=== PATIENT | male | born 1965 | race Caucasian/White ===

== ENCOUNTER → 2020-03-29 13:41 | Outpatient (BNVA) | payer MEDICAID, SELFPAY | PROVIDERS: PCP Registered Nurse; Visit Provider Internal Medicine Pulmonary Disease | DX: J44.9 Chronic obstructive pulmonary disease, unspecified (principal); R91.8 Other nonspecific abnormal finding of lung field; F17.200 Nicotine dependence, unspecified, uncomplicated; Z79.899 Other long term (current) drug therapy; Z99.81 Dependence on supplemental oxygen | CPT/HCPCS: 99214 ==

== ENCOUNTER → 2020-04-14 10:06 | Outpatient (BNVA) | payer MEDICAID, SELFPAY | PROVIDERS: Visit Provider Internal Medicine Pulmonary Disease | DX: Z76.89 Persons encountering health services in other specified circumstances (principal) ==

== ENCOUNTER 2020-04-20 12:54 | Outpatient (REF) | payer MEDICAID, SELFPAY ==
--- NOTE | 2020-04-20 12:57 | CT_ITS ---
EXAMINATION: CT CHEST WITHOUT CONTRAST CLINICAL INFORMATION: Follow-up pulmonary nodules COMPARISON: Previous chest CT April 2019 TECHNIQUE: Multidetector volumetric CT imaging of the chest was done. Axial MIP volume rendering provided. Sagittal and coronal reformatted images were obtained. This CT examination was performed using dose optimization techniques as appropriate, variously including the following: *Automated exposure control *Adjustment of mA and/or kV according to patient size (this includes techniques or standardized protocols for targeted exams where dose is matched to indication/reason for exam; i.e. 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 Largest pulmonary nodule is a 3 mm calcified left upper lobe nodule axial image 123 series 7. No new pulmonary nodules are seen. There is scarring or subsegmental atelectasis in the lingula. MEDIASTINUM: The mediastinum is normal. PLEURA: There is no pleural effusion. No pleural mass or thickening. AXILLA: No lymphadenopathy. UPPER ABDOMEN: There are small upper abdominal retroperitoneal lymph nodes. There are gallstones in the gallbladder. The spleen is not completely imaged but may be prominent. OSSEOUS STRUCTURES: Unremarkable. CT/CT chest wo con IMPRESSION: Stable small calcified and noncalcified pulmonary nodules.
== END 2020-04-20 12:55 | disposition home or self-care (01) ==
LOC: HO.CT 12:54
PROVIDERS: Visit Provider Internal Medicine Pulmonary Disease
DX: R91.8 Other nonspecific abnormal finding of lung field (principal)
CPT/HCPCS: 71250

== ENCOUNTER → 2020-07-06 14:09 | Outpatient (BNVA) | payer MEDICAID, SELFPAY | PROVIDERS: Visit Provider Internal Medicine Pulmonary Disease | DX: Z76.89 Persons encountering health services in other specified circumstances (principal) ==

== ENCOUNTER → 2020-09-30 14:21 | Outpatient (BNVA) | payer MEDICAID, SELFPAY | PROVIDERS: PCP Family Medicine; Visit Provider Internal Medicine Pulmonary Disease | DX: J44.9 Chronic obstructive pulmonary disease, unspecified (principal); R91.8 Other nonspecific abnormal finding of lung field; Z99.81 Dependence on supplemental oxygen | CPT/HCPCS: 99212 ==

== ENCOUNTER 2020-11-25 09:10 | Outpatient (REF) | payer MEDICAID, SELFPAY ==
--- NOTE | ~2020-11-25 | US_ITS ---
EXAMINATION: US COMPLETE ABDOMEN WITH LIVER ELASTOGRAPHY CLINICAL INFORMATION: Chronic hepatitis C. COMPARISON: 02/05/2019 abdominal ultrasound. TECHNIQUE: Real-time imaging of the abdominal viscera. Noninvasive ultrasound liver fibrosis assessment is performed using Zahra ElastPQ point quantification shear wave elastography (pSWE) with a C5-2 MHz transducer. Multiple elastography samples are obtained. FINDINGS: LIVER: Homogeneous echotexture without focal abnormality. A gastrohepatic lymph node measures 1.0 cm in short axis. The right lobe measures 14.2 cm in length. The left lobe measures 12.0 cm in length. Portal flow is hepatopedal Shear wave liver elastography median stiffness is 1.19 m/s (reference: normal median stiffness is 1.3 m/s or less). IQR/median stiffness to assess sampling precision is 0.18 (reference: good quality data set is IQR/median stiffness of 0.15 or less). PANCREAS: Visualized portions unremarkable. ABDOMINAL AORTA: Visualized portions unremarkable. INFERIOR VENA CAVA: Visualized portions unremarkable. GALLBLADDER: Small gallstone measuring 0.6 cm and mild echogenic bile without mural thickening or pericholecystic fluid. COMMON BILE DUCT: 0.5 cm. Unremarkable. RIGHT KIDNEY: 11.2 cm. Unremarkable. LEFT KIDNEY: 10.5 cm. Mild pelvicaliectasis. SPLEEN: 18.0 cm (previously 16.7 cm). No focal abnormality. FREE FLUID: None. US/US abdomen comp w elastography IMPRESSION: 1. Liver elastography: In the range of high probability normal. 2. Cholelithiasis without evidence for acute cholecystitis. 3. Splenomegaly with mild interval increase. 4. Mild left renal pelvicaliectasis without identified obstructing abnormality. REFERENCE: Society of Radiologists in Ultrasound Liver Stiffness Thresholds (2020): LIVER STIFFNESS THRESHOLDS: *Liver Stiffness equal or less than 1.3 m/s: High probability of being normal. *Liver Stiffness less than 1.7 m/s: In the absence of other known clinical signs, rules out compensated advanced chronic liver disease. *Liver Stiffness 1.7-2.1 m/s: Suggestive of compensated advanced chronic liver disease but need further test for confirmation. *Liver Stiffness over 2.1 m/s: Rules in compensated advanced chronic liver disease. *Liver Stiffness over 2.4 m/s: Suggestive of clinically significant portal hypertension. QUALITY OF DATA SET: *IQR/Median value equal or less than 0.15 implies a quality data set. *IQR/Median value over 0.15 implies a poor quality data set. SIGNIFICANT CHANGE FROM PRIOR EXAM: Significant change if liver stiffness measurement is 10% or greater from prior exam. OTHER CONSIDERATIONS: The stage of liver fibrosis may be overestimated in the setting of acute hepatitis, liver inflammation, elevated liver function tests, hepatic vascular congestion, obstructive cholestasis, non-fasting state, and infiltrative diseases such as amyloidosis and lymphoma. In some patients with NAFLD, the liver stiffness thresholds for compensated advanced chronic liver disease may be lower. In causes other than viral hepatitis and NAFLD, liver stiffness thresholds are not well established.
== END 2020-11-25 09:11 | disposition home or self-care (01) ==
LOC: HO.US 09:10
PROVIDERS: Visit Provider Internal Medicine
DX: B18.2 Chronic viral hepatitis C (principal)
CPT/HCPCS: 76705; 76981

== ENCOUNTER 2021-02-12 11:22 | Inpatient (IN) | payer MEDICAID, SELFPAY ==
--- NOTE | ~2021-02-12 | US_ITS ---
EXAMINATION: US VENOUS ULTRASOUND WITH DOPPLER LOWER EXTREMITY, BILATERAL CLINICAL INFORMATION: This a 55-year-old male with leg pain and swelling. COMPARISON: None TECHNIQUE: Ultrasound of the deep veins is performed from the hip to the calf with compression sonography and color and pulse Doppler assessment. Spectral analysis with color-flow imaging is performed. FINDINGS: RIGHT: There is normal venous compression and respiratory variation and augmented flow. The visualized common femoral vein, superficial femoral vein, profunda femoral vein, popliteal vein, and the trifurcation region shows no evidence of deep venous thrombosis. There is no significant popliteal fossa cyst. Pitting edema is noted in the subcutaneous tissues. LEFT: There is normal venous compression and respiratory variation and augmented flow. The visualized common femoral vein, superficial femoral vein, profunda femoral vein, popliteal vein, and the trifurcation region shows no evidence of deep venous thrombosis. There is no significant popliteal fossa cyst. Pitting edema is noted in the subcutaneous tissues. If the patient's symptoms persist, followup ultrasound in 5 days 7 days might be of value to exclude proximal propagation from a non-visualized calf vein. US/US venous duplex LE BI IMPRESSION: No DVT demonstrated in the bilateral lower extremity. However, pitting edema is seen throughout the subcutaneous tissues.
--- NOTE | ~2021-02-12 | US_ITS ---
EXAMINATION: US SCROTUM CLINICAL INFORMATION: Redness, swelling and warmth. COMPARISON: None TECHNIQUE: A sonogram of the scrotum was performed assessing sarmiento-scale appearance and color Doppler flow. Spectral Doppler analysis of the arterial and venous flow were performed in the testes bilaterally. FINDINGS: There is bilateral scrotal thickening and edema. RIGHT: Right testicle measures 4.5 x 2.5 x 3.4 cm, volume 20 mL. There is a 2 mm echogenic structure within the right testicle which is entirely nonspecific due to its small size. Spectral Doppler analysis of the arterial and venous flow is normal in the right testis. Right epididymal head is normal in size. No right hydrocele or varicocele is seen. Right epididymal Doppler flow is normal. LEFT: Left testicle measures 4.3 x 2.6 x 3.5 cm, volume 21 mL. No focal testicular parenchymal lesions are visualized. Spectral Doppler analysis of the arterial and venous flow is normal in the left testis. Left epididymal head is normal in size. No left hydrocele or varicocele is seen. Left epididymal Doppler flow is normal. US/US scrotum doppler IMPRESSION: * Bilateral scrotal swelling/edema. * No associated hydrocele. * No evidence of epididymoorchitis. * No testicular torsion. * Nonspecific 2 mm echogenic structure within the right testicle. Recommend follow-up scrotal ultrasound 6 months to confirm stability.
--- NOTE | ~2021-02-12 | XR_ITS ---
EXAMINATION: XR CHEST CLINICAL INFORMATION: Question of heart failure COMPARISON: 02/12/2019 TECHNIQUE: Frontal view of the chest was obtained. FINDINGS: No significant abnormality is noted involving the heart, lungs, mediastinum, bony thorax or soft tissues. XR/XR chest 1V IMPRESSION: Unremarkable examination.
--- NOTE | ~2021-02-12 | US_ITS ---
EXAMINATION: ULTRASOUND ABDOMEN DUPLEX ARTERIAL VENOUS CLINICAL INFORMATION: Evaluate for vascular patency, thrombosis COMPARISON: None TECHNIQUE: Multiple 2-D grayscale and duplex Doppler ultrasound images of the vasculature of the upper abdomen were obtained. FINDINGS: The portal and hepatic veins are patent with normal direction of flow. The splenic vein is patent without abnormality. The hepatic artery is patent. US/US duplex arterial venous comp IMPRESSION: Patent upper abdominal vasculature with normal direction of flow and no evidence for thrombosis.
--- NOTE | ~2021-02-12 | US_ITS ---
EXAMINATION: US SCROTUM CLINICAL INFORMATION: Redness, swelling and warmth. COMPARISON: None TECHNIQUE: A sonogram of the scrotum was performed assessing sarmiento-scale appearance and color Doppler flow. Spectral Doppler analysis of the arterial and venous flow were performed in the testes bilaterally. FINDINGS: There is bilateral scrotal thickening and edema. RIGHT: Right testicle measures 4.5 x 2.5 x 3.4 cm, volume 20 mL. There is a 2 mm echogenic structure within the right testicle which is entirely nonspecific due to its small size. Spectral Doppler analysis of the arterial and venous flow is normal in the right testis. Right epididymal head is normal in size. No right hydrocele or varicocele is seen. Right epididymal Doppler flow is normal. LEFT: Left testicle measures 4.3 x 2.6 x 3.5 cm, volume 21 mL. No focal testicular parenchymal lesions are visualized. Spectral Doppler analysis of the arterial and venous flow is normal in the left testis. Left epididymal head is normal in size. No left hydrocele or varicocele is seen. Left epididymal Doppler flow is normal. US/US scrotum IMPRESSION: * Bilateral scrotal swelling/edema. * No associated hydrocele. * No evidence of epididymoorchitis. * No testicular torsion. * Nonspecific 2 mm echogenic structure within the right testicle. Recommend follow-up scrotal ultrasound 6 months to confirm stability.
--- NOTE | ~2021-02-12 | US_ITS ---
EXAMINATION: US ABDOMEN LIMITED CLINICAL INFORMATION: Abdominal pain. COMPARISON: Abdominal ultrasound dated 11/25/2020. TECHNIQUE: Real-time imaging of the right upper quadrant abdominal viscera. FINDINGS: PANCREAS: Visualized portions unremarkable. LIVER: Minimal surface nodularity without focal abnormality. The portal and hepatic veins are patent with normal direction of flow. The hepatic artery is patent. GALLBLADDER: Mural thickening up to 0.6 cm without intraluminal abnormality. No pericholecystic fluid. Positive Osuna's sign on exam. COMMON BILE DUCT: Normal in caliber measuring 0.4 cm in diameter. RIGHT KIDNEY: 9.9 cm. Unremarkable. SPLEEN: 17.1 cm without focal abnormality. The splenic vein is patent. FREE FLUID: None. US/US abdomen limited IMPRESSION: 1. Patent vasculature with normal direction of flow as detailed above. 2. Probable hepatic cirrhosis without focal abnormality. 3. Mild perihepatic ascites. 4. Mild to moderate mural thickening in the gallbladder without intraluminal abnormality. This does not appear acute and could be secondary to ascites/systemic disease.
--- NOTE | ~2021-02-12 | CT_ITS ---
EXAMINATION: CT ANGIOGRAM OF THE CHEST WITH AND WITHOUT CONTRAST (CT PULMONARY ANGIOGRAM FOR PE) CLINICAL INFORMATION: Reason for Exam hypoxia COMPARISON: 04/20/2020. Radiograph from today. TECHNIQUE: Prior to contrast administration, noncontrast localization images were obtained. Subsequently, multidetector volumetric imaging was performed from the thoracic inlet to below the diaphragms following the administration of 65 mL Omnipaque 350 intravenous contrast. No contrast reaction reported Sagittal, coronal, and MIP oblique sagittal reformatted images were obtained on the CT workstation, uploaded to PACS, and reviewed. This CT examination was performed using dose optimization techniques as appropriate, variously including the following: *Automated exposure control *Adjustment of mA and/or kV according to patient size (this includes techniques or standardized protocols for targeted exams where dose is matched to indication/reason for exam; i.e. extremities or head) *Use of iterative reconstruction technique Total exam dose-length product 307 mGy-cm FINDINGS: QUALITY OF STUDY/CONTRAST BOLUS: Satisfactory. PULMONARY ARTERIES: No central or segmental pulmonary emboli. THORACIC AORTA: No aneurysm or dissection. LUNG: The central airways are patent. Mild bronchial wall thickening. No focal consolidation, nodules or masses. PLEURA: No pleural effusion or pneumothorax. MEDIASTINUM: Normal heart size. No pericardial effusion. No hilar or mediastinal lymphadenopathy. No evidence of septal bowing or right heart strain. CHEST WALL/AXILLA: No axillary or internal mammary lymphadenopathy. OSSEOUS STRUCTURES: No acute or suspicious osseous abnormality. UPPER ABDOMEN: Small volume ascites. Enlarged spleen. No reflux of contrast into the hepatic veins to suggest elevated right heart pressures. CT/CT angio chest IMPRESSION: 1. No pulmonary embolism. 2. No consolidation. Bronchial wall thickening can be seen with a small airways process such as asthma or atypical/viral infection. 3. Splenomegaly partially visualized. Ascites noted in the upper abdomen. VTE: negative
[2021-02-12 11:33] VITALS: BP 112/76; BP 148/95; PULSE 93; PULSE 96; RESP 15; TEMP 36.9; O2SAT 93; O2SAT 98; BMI 24.5
--- NOTE | 2021-02-12 11:58 | ECG_ITS ---
Test Reason : SOB Blood Pressure : / mmHG Vent. Rate : 090 BPM Atrial Rate : 090 BPM P-R Int : 142 ms QRS Dur : 074 ms QT Int : 336 ms P-R-T Axes : 072 067 014 degrees QTc Int : 411 ms Normal sinus rhythm Nonspecific T wave abnormality Abnormal ECG When compared with ECG of 12-FEB-2019 18:28, Nonspecific T wave abnormality now evident in Inferior leads Referred By: Yuki Chand Electronically Signed By:HUMZA SHARMA
--- NOTE | 2021-02-12 11:58 | ED.GENADULT ---
HPI - General Adult General Chief complaint: General Medical Stated complaint: bilateral leg swelling Time Seen by Provider: 02/12/21 11:42 Source: patient Mode of arrival: ambulatory Limitations: no limitations History of Present Illness HPI narrative: 55-year-old male IV drug user presents for bilateral lower extremity redness and swelling. Patient states he has had redness and swelling for 2 months, but 2 days ago the swelling went up into his legs and up into his testicles. Reports his testicles are swollen and red. Reports this is not painful. No fevers. No vomiting or nausea. Patient can ambulate. Patient uses 10 bags of heroin a day, but states he does not inject into his legs. Patient is on 2-4 L of oxygen at home for COPD. Patient is not any more short of breath than he normally has, no chest pain, no cough. Patient is not vaccinated for COVID MD complaint: cellulitis, heart failure? Onset (ago): month(s) (2) Location: lower extremity Severity: severe Relieving factors: none Exacerbating factors: none Associated symptoms: denies other symptoms Treatments prior to arrival: none Related Data Home Medications Medication Instructions Recorded Confirmed albuterol sulfate 2.5 mg INHALATION QID 03/29/20 04/14/20 albuterol sulfate 90 mcg/actuation 1 puff INHALATION QID 03/29/20 04/14/20 aerosol inhaler (ProAir HFA) nicotine (polacrilex) 2 mg gum 2 mg BUCCAL Q1H 03/29/20 04/14/20 pantoprazole 40 mg tablet,delayed 40 mg PO DAILY 03/29/20 04/14/20 release umeclidinium 62.5 mcg-vilanterol 1 inh INHALATION DAILY 03/29/20 04/14/20 25 mcg/actuation powdr for inhalation (Anoro Ellipta) Previous Rx's Medication Instructions Recorded theophylline 400 mg 400 mg PO DAILY 30 Days #30 tab 07/06/20 tablet,extended release 24 hr Allergies Allergy/AdvReac Type Severity Reaction Status Date / Time No Known Allergies Allergy Verified 09/30/20 14:22 Review of Systems Constitutional: Constitutional: Denies body ache(s), Denies chills, Denies fatigue, Denies fever(s), Denies headache(s), Denies malaise and Denies weakness Eyes: Eyes: Denies blurry vision and Denies diplopia ENT: Denies vertigo, Denies dizziness, Denies otalgia, Denies headache(s), Denies mouth pain, Denies post nasal drip, Denies sinus pain, Denies sinus pressure, Denies sore throat and Denies throat swelling Cardiovascular: Cardiovascular: Denies chest pain, Denies syncope, Reports leg edema, Denies lightheadedness, Denies Loss of Consciousness, Denies palpitations and Reports dyspnea (chronic, unchanged) Respiratory: Respiratory: Denies chest congestion, Denies cough and Reports dyspnea (chronic, unchanged) Gastrointestinal: Gastrointestinal: Denies abdominal pain, Denies hematochezia, Denies constipation, Denies diarrhea and Denies vomiting Genitourinary: Genitourinary: Reports scrotal swelling and Reports testicular pain Comments: Penile swelling and erythema, scrotal swelling and erythema Musculoskeletal: Comments: Lower extremity swelling bilaterally, erythema Integumentary/Breasts: Skin/Breast: Reports swelling, Reports erythema, Denies skin pain and Reports skin swelling Neurologic: Denies vertigo, Denies dizziness, Denies syncope, Denies headache(s) and Denies weakness Endocrine: Endocrine: Denies fatigue and Denies palpitations Allergic/Immunologic: Allergic/Immunologic: Denies throat swelling [facility] Past Medical History [facility] Narrative: COPD on 2-4 L of oxygen at home Pulmonary nodule IV drug use Heroin abuse Social History Social History Alcohol intake: former Patient Tobacco Use Status: Current someday Tobacco user Years Smoked: 30 yrs Smoked in Last 30 Days: Yes Use of substances other than those prescribed or required for medical reasons: Yes Substance Use Type: Heroin Substance Use Frequency: Chronic Longstanding Last Used Substance: Just Prior to Admission Any prior treatment program specific to substance use: No Advance Directives: No Advance Directives Information Provided: No Physical Exam Vital Signs: Vital Signs: Last Vital Signs Temp 98.4 F 02/12/21 11:33 Pulse 93 02/12/21 11:33 Resp 15 02/12/21 11:33 BP 148/95 H 02/12/21 11:33 Pulse Ox 98 02/12/21 11:33 Oxygen Flow Rate 2 02/12/21 11:33 Body Mass Index 24.5 Const: General: alert, awake, ill appearing chronically and poor hygiene Nutritional Appearance: cachectic Orientation/consciousness: patient oriented x3 Limitations: no limitations HENMT: Head: Yes normal to inspection, Yes normocephalic and Yes atraumatic Ears: hearing grossly normal bilaterally General nose exam: Normal external nose present Face and sinus: Yes normal facial exam Eyes: Pupils: Pinpoint pupils EOM: EOMs intact bilaterally Neck: Neck: Yes full ROM, Yes no meningeal signs and Yes supple Resp: Effort & Inspection: normal respiratory effort and able to speak in complete sentences Auscultation: rhonchi throughout, wheezes throughout and diminished lung sounds diffuse Cardio: Rate: regular rate Rhythm: regular rhythm Heart sounds: S1 normal heart sound present and S2 normal heart sound present GI: Inspection: Yes distended Palpation (GI): Soft to palpation, nontender, no guarding and not rigid Percussion: Yes normal to percussion Auscultation: normal bowel sounds : General: Yes no CVA tenderness Male General Exam: Yes edema, Yes erythema and Yes tenderness Penis: edematous, erythematous, no papules, no pustules and other (induration) Meatus: meatus normal Scrotum: erythematous bilateral and diffuse and scrotal swelling bilateral Testes: no testicular tenderness Back/Spine/Pelvis: Back: no CVA tenderness Skin: Other: Bilateral lower extremities are swollen, with shiny skin, left greater than right, erythematous, with bubbling on the skin. Both bilateral lower extremities are indurated, with induration extending into patient's left medial thigh. Patient has erythematous and edematous penis and scrotum. Penis is deformed from edema Patient has multiple track mendes on his bilateral forearms, with ecchymosis, and small areas of redness, no abscesses Neuro: General: patient oriented x3 and no meningeal signs Extrem: Right lower extremity: edema Details: pitting and 2+ and lower leg Details: erythema Location: of the proximal lower leg, of the mid lower leg and of the distal lower leg, localized swelling Location: of the proximal lower leg, of the mid lower leg and of the distal lower leg and warmth Location: of the proximal lower leg, of the mid lower leg and of the distal lower leg Left lower extremity: edema Details: pitting and 2+ and lower leg Details: erythema Location: of the proximal lower leg, of the mid lower leg and of the distal lower leg, localized swelling Location: of the proximal lower leg, of the mid lower leg and of the distal lower leg and warmth Location: of the proximal lower leg, of the mid lower leg and of the distal lower leg; Negative for no tenderness Course Course Course Narrative: 55-year-old IV drug user who uses 10 bags of heroin presents for by bilateral leg swelling over the last 2 months that has worsened in the last 2 days. On exam, patient is cachectic, with bilateral lower extremity swelling with +2 pitting edema, erythema, shiny and bubbly skin, with induration. Induration extends up left medial thigh. Patient's testes and penis are edematous and erythematous, with induration right side worse than left. Penis is so edematous it is deformed. Obtaining blood cultures, labs, chest x-ray, BNP, ultrasound bilateral legs and testicles. Started patient on Zosyn 1st, then Vanco. White blood cell count 3.6, patient thrombocytopenic with platelets of 46. BNP is only 132, chest x-ray is negative, lactate is 0.9. Started 30 mL per kg fluids. DVT of legs and testes shows edema and swelling, no testicular torsion, no DVT. Dr. Price will admit patient. Medical Decision Making Lab Data Result diagrams: 02/12/21 12:12 02/12/21 12:12 Labs: Lab Results 02/12/21 02/12/21 02/12/21 Range/Units 12:12 12:12 12:12 WBC 3.6 L (4.8-10.8) X10*3/uL RBC 5.79 (4.60-5.80) X10*6/uL Hgb 14.1 (14.0-18.0) g/dl Hct 47.2 (42-52) % MCV 81.5 (80-98) fL MCH 24.4 L (27.0-33.0) pg MCHC 29.9 L (31.0-36.0) g/dl RDW 16.4 H (11.0-16.0) % Plt Count 49 L (160-400) X10*3/uL MPV 9.3 L (9.4-12.4) fL Immature Gran % (Auto) 0.0 (0.0-0.4) % Neut % (Auto) 69.4 (45-73) % Lymph % (Auto) 21.0 (20-40) % Harvey % (Auto) 8.8 (2-11) % Eos % (Auto) 0.8 (0-4) % Baso % (Auto) 0.0 (0-2) % Lymph # (Auto) 0.8 L (1.2-4.9) X10*3/uL Harvey # (Auto) 0.3 (0.1-1.2) X10*3/uL Eos # (Auto) 0.0 (0.0-0.4) X10*3/uL Baso # (Auto) 0.0 (0.0-0.2) X10*3/uL Abs Immat Gran (auto) 0.00 (0.00-0.03) X10*3/uL Absolute Neuts (auto) 2.5 (2.0-8.3) X10*3/uL Absolute Nucleated RBC 0.000 (0.0-0.012) X10*3/uL Nucleated RBC % (auto) 0.0 (0.0-0.2) /100WBC Smear Tech's Comments VERIFIED PT 13.0 (9.9-13.0) SEC INR 1.1 (0.9-1.1) APTT 34.4 (24.1-38.0) SEC Sodium 141 (135-145) mmol/L Potassium 4.5 (3.3-5.1) mmol/L Chloride 100 (96-108) mmol/L Carbon Dioxide 38 H (22-29) mmol/L Anion Gap 8 L (12-20) BUN 15 (9-16) mg/dL Creatinine 0.81 (0.5-1.4) mg/dL Estim Creat Clear Calc 94.0 Estimated GFR > 60 Random Glucose 90 (60-115) mg/dL Lactic Acid (0.5-2.0) mmol/L Calcium 8.8 (8.4-10.2) mg/dL Total Bilirubin 1.0 (0.0-1.0) mg/dL AST 16 (5-37) U/L ALT 15 (0-40) U/L Alkaline Phosphatase 107 (39-117) U/L B-Natriuretic Peptide (<100) pg/mL Total Protein 7.2 (6.5-8.0) g/dL Albumin 3.4 L (3.5-5.0) g/dL COVID-19 (TATIANNA) (Negative) COVID-19 Clin Com 02/12/21 02/12/21 02/12/21 Range/Units 12:12 12:12 12:19 WBC (4.8-10.8) X10*3/uL RBC (4.60-5.80) X10*6/uL Hgb (14.0-18.0) g/dl Hct (42-52) % MCV (80-98) fL MCH (27.0-33.0) pg MCHC (31.0-36.0) g/dl RDW (11.0-16.0) % Plt Count (160-400) X10*3/uL MPV (9.4-12.4) fL Immature Gran % (Auto) (0.0-0.4) % Neut % (Auto) (45-73) % Lymph % (Auto) (20-40) % Harvey % (Auto) (2-11) % Eos % (Auto) (0-4) % Baso % (Auto) (0-2) % Lymph # (Auto) (1.2-4.9) X10*3/uL Harvey # (Auto) (0.1-1.2) X10*3/uL Eos # (Auto) (0.0-0.4) X10*3/uL Baso # (Auto) (0.0-0.2) X10*3/uL Abs Immat Gran (auto) (0.00-0.03) X10*3/uL Absolute Neuts (auto) (2.0-8.3) X10*3/uL Absolute Nucleated RBC (0.0-0.012) X10*3/uL Nucleated RBC % (auto) (0.0-0.2) /100WBC Smear Tech's Comments PT (9.9-13.0) SEC INR (0.9-1.1) APTT (24.1-38.0) SEC Sodium (135-145) mmol/L Potassium (3.3-5.1) mmol/L Chloride (96-108) mmol/L Carbon Dioxide (22-29) mmol/L Anion Gap (12-20) BUN (9-16) mg/dL Creatinine (0.5-1.4) mg/dL Estim Creat Clear Calc Estimated GFR Random Glucose (60-115) mg/dL Lactic Acid 0.9 (0.5-2.0) mmol/L Calcium (8.4-10.2) mg/dL Total Bilirubin (0.0-1.0) mg/dL AST (5-37) U/L ALT (0-40) U/L Alkaline Phosphatase (39-117) U/L B-Natriuretic Peptide 132 H (<100) pg/mL Total Protein (6.5-8.0) g/dL Albumin (3.5-5.0) g/dL COVID-19 (TATIANNA) Negative (Negative) COVID-19 Clin Com See Note ECG Data Interpretation: Normal sinus at a rate of 90, MO interval 142, QRS 74, QTC 411. No ST elevation or depression, no T-wave changes. Normal axis Discharge Plan Discharge Clinical Impression: Cellulitis Qualifiers: Site of cellulitis: extremity Site of cellulitis of extremity: lower extremity Laterality: unspecified laterality Qualified Code(s): L03.119 - Cellulitis of unspecified part of limb Patient Disposition: Admitted as Observation
[2021-02-12 12:22] LABS: MANUAL DIFF FLAG SCAN; Mean Corpuscular HGB Conc 29.9 g/dl (31.0-36.0); PLT CLUMP 1; SCAN SMEAR FLAG 1
[2021-02-12 12:23] LABS: Eosinophils Percent Auto 0.8 % (0-4); Hematocrit 47.2 % (42-52); Hemoglobin 14.1 g/dl (14.0-18.0); Lymphocytes Absolute Auto 0.8 X10*3/uL (1.2-4.9); Mean Corpuscular Hemoglobin 24.4 pg (27.0-33.0); Mean Corpuscular Volume 81.5 fL (80-98); Mean Platelet Volume 9.3 fL (9.4-12.4); Monocytes Absolute Auto 0.3 X10*3/uL (0.1-1.2); Monocytes Percent Auto 8.8 % (2-11); Neutrophils Absolute Auto 2.5 X10*3/uL (2.0-8.3); Neutrophils Percent Auto 69.4 % (45-73); Red Blood Count 5.79 X10*6/uL (4.60-5.80); Red Cell Distribution Width 16.4 % (11.0-16.0); White Blood Count 3.6 X10*3/uL (4.8-10.8)
[2021-02-12 12:28] LABS: INTERNATIONAL NORM RATIO 1.1 (0.9-1.1)
[2021-02-12 12:30] LABS: Partial Thromboplastin Time 34.4 SEC (24.1-38.0)
[2021-02-12] MEDS: Piperacillin Sodium/Tazobactam 4.5 GM in 0.9 % Sodium Chloride 100 ML IV (12:36)
[2021-02-12 12:42] LABS: COVID-19 Test Negative (Negative); IDNOW Serial# 9DD0AD1C
[2021-02-12 12:43] LABS: Platelet Count 49 X10*3/uL (160-400)
[2021-02-12 12:44] LABS: SLIDE REVIEW VERIFIED
[2021-02-12 12:50] LABS: Lactic Acid 0.9 mmol/L (0.5-2.0)
[2021-02-12 13:01] LABS: B Type Natriuretic Peptide 132 pg/mL (<100)
[2021-02-12 13:12] LABS: Alanine Aminotransferase 15 U/L (0-40); Albumin Level 3.4 g/dL (3.5-5.0); Alkaline Phosphatase 107 U/L (39-117); Anion Gap 8 (12-20); Aspartate Amino Transferase 16 U/L (5-37); Blood Urea Nitrogen 15 mg/dL (9-16); Calcium 8.8 mg/dL (8.4-10.2); Carbon Dioxide 38 mmol/L (22-29); Chloride 100 mmol/L (96-108); Estimated Glomerular Filt Rate > 60; Glucose Random 90 mg/dL (60-115); Potassium 4.5 mmol/L (3.3-5.1); Sodium 141 mmol/L (135-145); Total Protein 7.2 g/dL (6.5-8.0)
[2021-02-12] MEDS: vancomycin HCL 1,000 MG in 0.9 % Sodium Chloride 250 ML 270 MG IV (13:18)
--- NOTE | 2021-02-12 14:40 | PC.NURSE ---
PT CALLED FOR ASSISTANCE AND WAS FOUND TO BE HYPOXIC IN THE 70'S AND TACHYPNEA. HIS O2 NC 3L WAS IN PLACE. A NON REBREATHER WAS PLACED IN FRONT OF THE PT AND HE WAS ABLE TO RECOVER INTO THE MID TO HIGH 90'S AND HIS RR REDUCED. PROVIDER WAS MADE AWARE.
[2021-02-12 15:05] VITALS: BP 119/73; PULSE 91; RESP 15; O2SAT 98
[2021-02-12] MEDS: oxyCODONE HCl Immed Release 5 MG TABLET 10 MG PO (15:09)
[2021-02-12] MEDS: Furosemide 40 MG/4 ML VIAL IVPUSH (15:22)
--- NOTE | 2021-02-12 15:22 | PM.IMHP ---
History of Present Illness Date of Service: 02/12/21 Chief Complaint: bilateral lE edema 55M presented with several days worsening lower extremity edema. patient reports legs have been getting more swollen over past several months. the swelling has progressed up thighs and includes scrotum and penis. denies fever, chills. associated with erythema. denies sob or chest pain. patient has severe copd on 2-3L home o2 and is actively using heroin. in ED noted to have episodes of severe hypoxia down to 70s on minmal exertion. cxr unremarkable. doppler negative for dvt. empirically covered with antibiotics. Review of Systems Review of Systems: Constitutional: Denies fever, denies Chills Eyes: denies blurry vision ENT: denies sore throat CVS: denies chest pain Respiratory: Denies dyspnea GI: no abdominal pain : denies dysuria MSK: denies neck pain Skin: see hpi Neuro: denies specific motor weakness Psych: denies suicidal ideation Endocrine: denies heat/cold intolerance Hematologic: denies easy bleeding Allergy: denies hives [facility] Medical History Erosive esophagitis HCV (hepatitis C virus) Latent tuberculosis Family history: reviewed and not pertinent Social History Alcohol intake: former Patient Tobacco Use Status: Current someday Tobacco user Years Smoked: 30 yrs Smoked in Last 30 Days: Yes Use of substances other than those prescribed or required for medical reasons: Yes Substance Use Type: Heroin Substance Use Frequency: Chronic Longstanding Last Used Substance: Just Prior to Admission Any prior treatment program specific to substance use: No Advance Directives: No Advance Directives Information Provided: No Meds Allergies Allergy/AdvReac Type Severity Reaction Status Date / Time No Known Allergies Allergy Verified 09/30/20 14:22 Active Medications: Current Medications Generic Name Dose Route Start Last Admin Trade Name Freq PRN Reason Stop Dose Admin Albuterol Sulfate 2 puff 02/12/21 15:17 Albuterol Sulfate 90 Mcg 8 Gm Inhaler INHALE RQ4H PRN Shortness of Breath Enoxaparin Sodium 40 mg 02/12/21 15:30 Enoxaparin Sodium 40 Mg/0.4 Ml Syringe SUBCUT Q24H LIBBY Furosemide 40 mg 02/12/21 15:20 02/12/21 15:22 Furosemide 40 Mg/4 Ml Vial IVPUSH 40 mg DAILY [facility] Administration Protocol Non-Formulary Medication 1 puff 02/13/21 09:00 Umeclidinium-Vilanterol [Anoro Ellipta] INHALE DAILY [facility] Omeprazole 40 mg 02/13/21 06:30 Omeprazole 40 Mg Capsule. PO DAILY@0630 [facility] Oxycodone HCl 5 mg 02/12/21 15:15 Oxycodone Hcl Immed Release 5 Mg Tablet PO Q4H PRN withdrawal Sodium Chloride 3 ml 02/12/21 16:00 0.9 % Sodium Chloride Flush 3 Ml Syringe IVFLUSH QSHIFT [facility] Theophylline 400 mg 02/13/21 09:00 Theophylline Anhydrous Er 400 Mg Tab.Er.24h PO DAILY [facility] Home Medications Medication Instructions Recorded Confirmed Last Taken Type pantoprazole 40 mg tablet,delayed 40 mg PO DAILY 03/29/20 02/12/21 Unknown History release umeclidinium 62.5 mcg-vilanterol 1 inh INHALATION DAILY 03/29/20 02/12/21 Unknown History 25 mcg/actuation powdr for inhalation (Anoro Ellipta) albuterol sulfate 1 amp INHALATION Q4H PRN 02/12/21 02/12/21 Unknown History nicotine (polacrilex) 2 mg gum 1 mg PO 02/12/21 Unknown History umeclidinium 62.5 mcg-vilanterol 1 puff INHALATION DAILY 02/12/21 02/12/21 Unknown History 25 mcg/actuation powdr for inhalation (Anoro Ellipta) Physical Exam Vital Signs and Narrative: Vital Signs: Last Vital Signs Temp 98.4 F 02/12/21 11:33 Pulse 91 02/12/21 15:05 Resp 15 02/12/21 15:05 BP 119/73 02/12/21 15:05 Pulse Ox 98 02/12/21 15:05 Oxygen Flow Rate 2 02/12/21 11:33 Body Mass Index 24.5 General: ill appearing, curled up, tremulous HEENT: atraumatic Neck: normal to visual inspection CVS: S1, S2, RRR Resp: diminished Chest: non tender GI: soft, non tender, non distended : scrotal edema Skin: bilateral legs and scrotal erythema Extremities: 4+ edema Neuro: Oriented X3, grossly intact Psych: cooperative Results Labs CBC and Chem 7: 02/12/21 12:12 02/12/21 12:12 Labs: Laboratory Results - last 24 hr 02/12/21 02/12/21 02/12/21 12:12 12:12 12:12 MCV 81.5 MCH 24.4 L MCHC 29.9 L RDW 16.4 H Plt Count 49 L MPV 9.3 L Immature Gran % (Auto) 0.0 Neut % (Auto) 69.4 Lymph % (Auto) 21.0 Day % (Auto) 8.8 Eos % (Auto) 0.8 Baso % (Auto) 0.0 Lymph # (Auto) 0.8 L Day # (Auto) 0.3 Eos # (Auto) 0.0 Baso # (Auto) 0.0 Abs Immat Gran (auto) 0.00 Absolute Neuts (auto) 2.5 Absolute Nucleated RBC 0.000 Nucleated RBC % (auto) 0.0 Smear Tech's Comments VERIFIED PT 13.0 INR 1.1 APTT 34.4 Anion Gap 8 L Estim Creat Clear Calc 94.0 Estimated GFR > 60 Random Glucose 90 Lactic Acid Calcium 8.8 Total Bilirubin 1.0 AST 16 ALT 15 Alkaline Phosphatase 107 B-Natriuretic Peptide Total Protein 7.2 Albumin 3.4 L COVID-19 (TATIANNA) COVID-19 Clin Com 02/12/21 02/12/21 02/12/21 12:12 12:12 12:19 MCV MCH MCHC RDW Plt Count MPV Immature Gran % (Auto) Neut % (Auto) Lymph % (Auto) Day % (Auto) Eos % (Auto) Baso % (Auto) Lymph # (Auto) Day # (Auto) Eos # (Auto) Baso # (Auto) Abs Immat Gran (auto) Absolute Neuts (auto) Absolute Nucleated RBC Nucleated RBC % (auto) Smear Tech's Comments PT INR APTT Anion Gap Estim Creat Clear Calc Estimated GFR Random Glucose Lactic Acid 0.9 Calcium Total Bilirubin AST ALT Alkaline Phosphatase B-Natriuretic Peptide 132 H Total Protein Albumin COVID-19 (TATIANNA) Negative COVID-19 Clin Com See Note Imaging Radiologist's Impressions: Impressions Chest X-Ray 02/12/21 11:58 IMPRESSION: Unremarkable examination. Venous Duplex 02/12/21 12:26 IMPRESSION: No DVT demonstrated in the bilateral lower extremity. However, pitting edema is seen throughout the subcutaneous tissues. Scrotum Ultrasound 02/12/21 12:28 IMPRESSION: * Bilateral scrotal swelling/edema. * No associated hydrocele. * No evidence of epididymoorchitis. * No testicular torsion. * Nonspecific 2 mm echogenic structure within the right testicle. Recommend follow-up scrotal ultrasound 6 months to confirm stability. Scrotum Ultrasound 02/12/21 13:10 IMPRESSION: * Bilateral scrotal swelling/edema. * No associated hydrocele. * No evidence of epididymoorchitis. * No testicular torsion. * Nonspecific 2 mm echogenic structure within the right testicle. Recommend follow-up scrotal ultrasound 6 months to confirm stability. Assessment and Plan (1) Severe chronic obstructive pulmonary disease: Status: Acute 55M presented with anasarca anasarca suspect right sided heart failure related to severe copd will diuresis, check echo no evidence of sepsis, erythema more likely stasis dermatitis, will hold off on further antibiotics for now acute on chronic hypoxic respiratory failure does not appear to be in copd exacerbation will check CTA chest continue inhalers opioid dependence with withdrawl oxycodone addiction consult HCV outpatient management does not appear to have evidence of cirrhosis, has fatty liver without fibrosis on recent liver elastography pancytopenia likely due to splenomegaly from liver disease (although liver not severe as mentioned above) history of erosive esophagitis continue ppi dvt prophylaxis - lovenox Quality Stroke Does the patient have a stroke diagnosis?: No VTE Prior VTE?: No VTE Risk Level:: Medical - moderate - high VTE Device Contraindication: Treatment Not Indicated VTE Drug Contraindication: N/A - Med Ordered
[2021-02-12 15:48] VITALS: BP 138/86; PULSE 88; RESP 19; TEMP 36.9; O2SAT 94
--- NOTE | 2021-02-12 15:57 | ED.GENADULT ---
HPI - General Adult General Chief complaint: General Medical Stated complaint: bilateral leg swelling Time Seen by Provider: 02/12/21 11:42 Source: patient Mode of arrival: ambulatory Limitations: no limitations History of Present Illness Location: lower extremity Relieving factors: none Exacerbating factors: none Associated symptoms: denies other symptoms Treatments prior to arrival: none Related Data Home Medications Medication Instructions Recorded Confirmed pantoprazole 40 mg tablet,delayed 40 mg PO DAILY 03/29/20 02/12/21 release umeclidinium 62.5 mcg-vilanterol 1 inh INHALATION DAILY 03/29/20 02/12/21 25 mcg/actuation powdr for inhalation (Anoro Ellipta) albuterol sulfate 1 amp INHALATION Q4H PRN 02/12/21 02/12/21 nicotine (polacrilex) 2 mg gum 1 mg PO 02/12/21 umeclidinium 62.5 mcg-vilanterol 1 puff INHALATION DAILY 02/12/21 02/12/21 25 mcg/actuation powdr for inhalation (Anoro Ellipta) Previous Rx's Medication Instructions Recorded theophylline 400 mg 400 mg PO DAILY 30 Days #30 tab 07/06/20 tablet,extended release 24 hr Allergies Allergy/AdvReac Type Severity Reaction Status Date / Time No Known Allergies Allergy Verified 09/30/20 14:22 [facility] Past Medical History Medical History Erosive esophagitis HCV (hepatitis C virus) Latent tuberculosis Social History Social History Household Members: Family Housing: House Do you presently have visiting nurse or other home services: No Alcohol intake: former Patient Tobacco Use Status: Current someday Tobacco user Cigarettes Per Day: 10 Years Smoked: 30 yrs Smoked in Last 30 Days: Yes Patient Interested in Nicotine Replacement: No Patient Given Instructions on How to Stop Smoking: Yes Date Education Initiated: 02/13/21 Use of substances other than those prescribed or required for medical reasons: Yes Substance Use Type: Heroin Substance Use Frequency: Daily Last Used Substance: Hours (ago) Last Used Substance Other:: heroin 02/12/21 Currently Displaying Signs/Symptoms of Drug Intoxication Withdrawal: No Any prior treatment program specific to substance use: No Have you been hit, kicked, punched, or otherwise hurt by someone within the past year? If so, by whom?: No Do you feel safe in your current relationship?: No Current Relationship Is there a partner from a previous relationship who is making you feel unsafe now?: No Are you made to feel afraid or neglected: No Advance Directives: No Advance Directives Information Provided: No Do you have thoughts of harming others: None Do you have a plan to hurt others: No Plan Recently lost weight without trying: Unsure Eating poorly because of decreased appetite: No Nutrition Risks: No Nutritional Risk Poor oral hygiene: Yes (no top teeth, partial bottom teeth) service: No Current occupational status: unemployed Physical Exam Vital Signs: Vital Signs: Last Vital Signs Temp 98.5 F 02/13/21 03:37 Pulse 80 02/13/21 03:37 Resp 18 02/13/21 03:37 BP 126/65 02/13/21 03:37 Pulse Ox 97 02/13/21 03:37 Oxygen Flow Rate 2 02/12/21 11:33 Body Mass Index 24.5 Medical Decision Making Lab Data Result diagrams: 02/13/21 05:06 02/13/21 05:06 Labs: Lab Results 02/12/21 02/12/21 02/12/21 Range/Units 12:12 12:12 12:12 WBC 3.6 L (4.8-10.8) X10*3/uL RBC 5.79 (4.60-5.80) X10*6/uL Hgb 14.1 (14.0-18.0) g/dl Hct 47.2 (42-52) % MCV 81.5 (80-98) fL MCH 24.4 L (27.0-33.0) pg MCHC 29.9 L (31.0-36.0) g/dl RDW 16.4 H (11.0-16.0) % Plt Count 49 L (160-400) X10*3/uL MPV 9.3 L (9.4-12.4) fL Immature Gran % (Auto) 0.0 (0.0-0.4) % Neut % (Auto) 69.4 (45-73) % Lymph % (Auto) 21.0 (20-40) % Grand % (Auto) 8.8 (2-11) % Eos % (Auto) 0.8 (0-4) % Baso % (Auto) 0.0 (0-2) % Lymph # (Auto) 0.8 L (1.2-4.9) X10*3/uL Grand # (Auto) 0.3 (0.1-1.2) X10*3/uL Eos # (Auto) 0.0 (0.0-0.4) X10*3/uL Baso # (Auto) 0.0 (0.0-0.2) X10*3/uL Abs Immat Gran (auto) 0.00 (0.00-0.03) X10*3/uL Absolute Neuts (auto) 2.5 (2.0-8.3) X10*3/uL Absolute Nucleated RBC 0.000 (0.0-0.012) X10*3/uL Nucleated RBC % (auto) 0.0 (0.0-0.2) /100WBC Smear Tech's Comments VERIFIED PT 13.0 (9.9-13.0) SEC INR 1.1 (0.9-1.1) APTT 34.4 (24.1-38.0) SEC Sodium 141 (135-145) mmol/L Potassium 4.5 (3.3-5.1) mmol/L Chloride 100 (96-108) mmol/L Carbon Dioxide 38 H (22-29) mmol/L Anion Gap 8 L (12-20) BUN 15 (9-16) mg/dL Creatinine 0.81 (0.5-1.4) mg/dL Estim Creat Clear Calc 94.0 Estimated GFR > 60 Random Glucose 90 (60-115) mg/dL Lactic Acid (0.5-2.0) mmol/L Calcium 8.8 (8.4-10.2) mg/dL Total Bilirubin 1.0 (0.0-1.0) mg/dL AST 16 (5-37) U/L ALT 15 (0-40) U/L Alkaline Phosphatase 107 (39-117) U/L B-Natriuretic Peptide (<100) pg/mL Total Protein 7.2 (6.5-8.0) g/dL Albumin 3.4 L (3.5-5.0) g/dL COVID-19 (TATIANNA) (Negative) COVID-19 Clin Com 02/12/21 02/12/21 02/12/21 Range/Units 12:12 12:12 12:19 WBC (4.8-10.8) X10*3/uL RBC (4.60-5.80) X10*6/uL Hgb (14.0-18.0) g/dl Hct (42-52) % MCV (80-98) fL MCH (27.0-33.0) pg MCHC (31.0-36.0) g/dl RDW (11.0-16.0) % Plt Count (160-400) X10*3/uL MPV (9.4-12.4) fL Immature Gran % (Auto) (0.0-0.4) % Neut % (Auto) (45-73) % Lymph % (Auto) (20-40) % Grand % (Auto) (2-11) % Eos % (Auto) (0-4) % Baso % (Auto) (0-2) % Lymph # (Auto) (1.2-4.9) X10*3/uL Grand # (Auto) (0.1-1.2) X10*3/uL Eos # (Auto) (0.0-0.4) X10*3/uL Baso # (Auto) (0.0-0.2) X10*3/uL Abs Immat Gran (auto) (0.00-0.03) X10*3/uL Absolute Neuts (auto) (2.0-8.3) X10*3/uL Absolute Nucleated RBC (0.0-0.012) X10*3/uL Nucleated RBC % (auto) (0.0-0.2) /100WBC Smear Tech's Comments PT (9.9-13.0) SEC INR (0.9-1.1) APTT (24.1-38.0) SEC Sodium (135-145) mmol/L Potassium (3.3-5.1) mmol/L Chloride (96-108) mmol/L Carbon Dioxide (22-29) mmol/L Anion Gap (12-20) BUN (9-16) mg/dL Creatinine (0.5-1.4) mg/dL Estim Creat Clear Calc Estimated GFR Random Glucose (60-115) mg/dL Lactic Acid 0.9 (0.5-2.0) mmol/L Calcium (8.4-10.2) mg/dL Total Bilirubin (0.0-1.0) mg/dL AST (5-37) U/L ALT (0-40) U/L Alkaline Phosphatase (39-117) U/L B-Natriuretic Peptide 132 H (<100) pg/mL Total Protein (6.5-8.0) g/dL Albumin (3.5-5.0) g/dL COVID-19 (TATIANNA) Negative (Negative) COVID-19 Clin Com See Note Discharge Plan Discharge Clinical Impression: Cellulitis Patient Disposition: Admitted as Observation Interventions: Admission Worksheet (ED) Last Done: 02/13/21 00:15 Discharge Date/Time: 02/13/21 00:15
[2021-02-12] MEDS: ondansetron HCL 4 MG/2 ML VIAL IVPUSH (16:20)
[2021-02-12] MEDS: 0.9 % Sodium Chloride Flush 3 ML SYRINGE IVFLUSH (16:20)
[2021-02-12] MEDS: Enoxaparin Sodium 40 MG/0.4 ML SYRINGE SUBCUT (19:32)
[2021-02-12 19:41] VITALS: BP 101/61; PULSE 102; RESP 16; TEMP 36.7; O2SAT 99
--- NOTE | 2021-02-12 21:47 | PC.NURSE ---
pt complains of painful urination.
[2021-02-12] MEDS: oxyCODONE HCl Immed Release 5 MG TABLET PO (21:51)
[2021-02-12 22:00] LABS: Glucose Urine UA NEG (NEG); Leukocyte Esterase Urine 1+ (NEG); Nitrite Urine NEG (NEG); Specific Gravity - Urine 1.015 (1.005-1.025); UACC Culture Trigger YES; Urine Blood 1+ (NEG); Urine Ketones NEG (NEG); Urine Protein NEG (NEG-TRACE)
[2021-02-12 22:07] LABS: Appearance Urine CLEAR; Bacteria Urine 1+ /LPF; Color Urine YELLOW; Squamous Epithelial Cell Urine 1+ /LPF; UACC CULT YES
--- NOTE | 2021-02-12 23:05 | PC.NURSE ---
#22 ANGIO TO RIGHT HAND, #20 ANGIO TO RIGHT EJ BY MD YANG. PT NEEDS CHEST CTA BEFORE TRANSPORT TO FLOOR.
--- NOTE | 2021-02-12 23:33 | PC.NURSE ---
report given to rn on floor, pt ready for transport.
[2021-02-12] MEDS: iohexoL 350 MG/ML 100 ML INFUS..BTL 65 ML IV (23:51)
[2021-02-12 23:58] VITALS: BMI 21.4
[2021-02-13] VITALS (8 sets, daily range): BP systolic 126–169; BP diastolic 65–90; PULSE 66–91; RESP 18–20; TEMP 36.3–37.2; O2SAT 90–100; BMI 21.4
[2021-02-13] MEDS: 0.9 % Sodium Chloride Flush 3 ML SYRINGE IVFLUSH ×4 (00:31→20:16)
[2021-02-13] MEDS: oxyCODONE HCl Immed Release 5 MG TABLET PO ×3 (02:32→12:24)
[2021-02-13 06:32] LABS: Hemoglobin 15.3 g/dl (14.0-18.0); Red Cell Distribution Width 17.1 % (11.0-16.0)
[2021-02-13 06:34] LABS: Hematocrit 49.4 % (42-52); Mean Corpuscular Hemoglobin 24.6 pg (27.0-33.0); Mean Corpuscular Volume 79.3 fL (80-98); Red Blood Count 6.23 X10*6/uL (4.60-5.80); White Blood Count 4.5 X10*3/uL (4.8-10.8)
[2021-02-13 06:50] LABS: PLT ABN DIST 1; Platelet Count 31 X10*3/uL (160-400)
[2021-02-13 06:56] LABS: Anion Gap 14 (12-20); Blood Urea Nitrogen 13 mg/dL (9-16); Calcium 8.7 mg/dL (8.4-10.2); Carbon Dioxide 31 mmol/L (22-29); Chloride 99 mmol/L (96-108); Creatinine Clr Calc Pharmacy 94.7; Estimated Glomerular Filt Rate > 60; Glucose Fasting 71 mg/dL (60-99); Potassium 4.8 mmol/L (3.3-5.1); Sodium 139 mmol/L (135-145)
[2021-02-13] MEDS: Omeprazole 40 MG CAPSULE.DR PO (08:03)
--- NOTE | 2021-02-13 08:32 | MHC.CM.PN ---
Patient lives with his father and brother. He does not drive , does not have nursing services and owns a cane. He is requesting a walker and VNA to go home with. May need a PT eval. At at time of D/C, potentially may need a taxi voucher as he does not know how he will get home. CM to follow.
--- NOTE | 2021-02-13 11:02 | P.PNIM_ITS ---
Subjective Subjective Date of Service: 02/13/21 Interval History: significant improvement today Cardiovascular Cardiovascular: Reports no additional cardiovascular complaints Respiratory Respiratory: Reports no additional respiratory complaints Physical Exam Vital Signs: Vital Signs: Last Vital Signs Temp 98.5 F 02/13/21 03:37 Pulse 80 02/13/21 03:37 Resp 18 02/13/21 03:37 BP 126/65 02/13/21 03:37 Pulse Ox 97 02/13/21 03:37 Oxygen Flow Rate 2 02/12/21 11:33 Body Mass Index 21.4 General: AO X 3, no acute distress Resp: CTA bilateral CVS: S1,S2,RRR GI: soft, non tender, non distended Neuro: motor grossly intact Psych: appropriate affect significant decrease in anasarca Objective Data Current Medications Generic Name Dose Route Start Last Admin Trade Name Freq PRN Reason Stop Dose Admin Albuterol Sulfate 2 puff 02/12/21 15:17 Albuterol Sulfate 90 Mcg 8 Gm Inhaler INHALE RQ4H PRN Shortness of Breath Furosemide 40 mg 02/12/21 15:20 02/13/21 08:05 Furosemide 40 Mg/4 Ml Vial IVPUSH Not Given DAILY [facility] Protocol Non-Formulary Medication 1 puff 02/13/21 09:00 Umeclidinium-Vilanterol [Anoro Ellipta] INHALE DAILY [facility] Omeprazole 40 mg 02/13/21 06:30 02/13/21 08:03 Omeprazole 40 Mg Capsule. PO 40 mg DAILY@0630 LIBBY Administration Oxycodone HCl 5 mg 02/12/21 15:15 02/13/21 08:04 Oxycodone Hcl Immed Release 5 Mg Tablet PO 5 mg Q4H PRN Administration withdrawal Sodium Chloride 3 ml 02/12/21 16:00 02/13/21 08:04 0.9 % Sodium Chloride Flush 3 Ml Syringe IVFLUSH 3 ml QSHIFT LIBBY Administration Labs CBC & Chem 7: 02/13/21 05:06 02/13/21 05:06 Labs: Laboratory Results - last 24 hr 02/12/21 02/12/21 02/12/21 12:12 12:12 12:12 MCV 81.5 MCH 24.4 L MCHC 29.9 L RDW 16.4 H Plt Count 49 L MPV 9.3 L Immature Gran % (Auto) 0.0 Neut % (Auto) 69.4 Lymph % (Auto) 21.0 [place] % (Auto) 8.8 Eos % (Auto) 0.8 Baso % (Auto) 0.0 Lymph # (Auto) 0.8 L [place] # (Auto) 0.3 Eos # (Auto) 0.0 Baso # (Auto) 0.0 Abs Immat Gran (auto) 0.00 Absolute Neuts (auto) 2.5 Absolute Nucleated RBC 0.000 Nucleated RBC % (auto) 0.0 Smear Tech's Comments VERIFIED PT 13.0 INR 1.1 APTT 34.4 Anion Gap 8 L Estim Creat Clear Calc 94.0 Estimated GFR > 60 Random Glucose 90 Fasting Glucose Lactic Acid Calcium 8.8 Total Bilirubin 1.0 AST 16 ALT 15 Alkaline Phosphatase 107 B-Natriuretic Peptide Total Protein 7.2 Albumin 3.4 L Urine Color Urine Appearance Urine pH Ur Specific [place] Urine Protein Urine Glucose (UA) Urine Ketones Urine Blood Urine Nitrite Ur Leukocyte Esterase Urine RBC Urine WBC Ur Squamous Epith Cells Urine Bacteria COVID-19 (TATIANNA) COVID-[facility] Clin Com 02/12/21 02/12/21 02/12/21 12:12 12:12 12:19 MCV MCH MCHC RDW Plt Count MPV Immature Gran % (Auto) Neut % (Auto) Lymph % (Auto) [place] % (Auto) Eos % (Auto) Baso % (Auto) Lymph # (Auto) [place] # (Auto) Eos # (Auto) Baso # (Auto) Abs Immat Gran (auto) Absolute Neuts (auto) Absolute Nucleated RBC Nucleated RBC % (auto) Smear Tech's Comments PT INR APTT Anion Gap Estim Creat Clear Calc Estimated GFR Random Glucose Fasting Glucose Lactic Acid 0.9 Calcium Total Bilirubin AST ALT Alkaline Phosphatase B-Natriuretic Peptide 132 H Total Protein Albumin Urine Color Urine Appearance Urine pH Ur Specific [place] Urine Protein Urine Glucose (UA) Urine Ketones Urine Blood Urine Nitrite Ur Leukocyte Esterase Urine RBC Urine WBC Ur Squamous Epith Cells Urine Bacteria COVID-19 (TATIANNA) Negative COVID-[facility] Clin Com See Note 02/12/21 02/13/21 02/13/21 21:51 05:06 05:06 MCV 79.3 L MCH 24.6 L MCHC 31.0 RDW 17.1 H Plt Count 31 L D MPV Not Reportable Immature Gran % (Auto) Neut % (Auto) Lymph % (Auto) [place] % (Auto) Eos % (Auto) Baso % (Auto) Lymph # (Auto) [place] # (Auto) Eos # (Auto) Baso # (Auto) Abs Immat Gran (auto) Absolute Neuts (auto) Absolute Nucleated RBC 0.000 Nucleated RBC % (auto) 0.0 Smear Tech's Comments PT INR APTT Anion Gap 14 Estim Creat Clear Calc 94.7 Estimated GFR > 60 Random Glucose Fasting Glucose 71 Lactic Acid Calcium 8.7 Total Bilirubin AST ALT Alkaline Phosphatase B-Natriuretic Peptide Total Protein Albumin Urine Color YELLOW Urine Appearance CLEAR Urine pH 6.0 Ur Specific [place] 1.015 Urine Protein NEG Urine Glucose (UA) NEG Urine Ketones NEG Urine Blood 1+ H Urine Nitrite NEG Ur Leukocyte Esterase 1+ H Urine RBC 5-9 H Urine WBC 1-4 Ur Squamous Epith Cells 1+ Urine Bacteria 1+ COVID-19 (TATIANNA) COVID-19 Clin Com Assessment and Plan (1) HCV (hepatitis C virus): Status: Acute Assessment and Plan: ?55M presented with anasarca anasarca suspect right sided heart failure related to severe copd significant improvement after diuresis, continue iv lasix no evidence of sepsis, erythema more likely stasis dermatitis, will hold off on further antibiotics for now acute on chronic hypoxic respiratory failure does not appear to be in copd exacerbation CTA negative for pe, showing signs of right sided chf continue inhalers opioid dependence with withdrawl oxycodone addiction consult reports no longer taking methadone HCV outpatient management does not appear to have evidence of cirrhosis, has fatty liver without fibrosis on recent liver elastography pancytopenia likely due to splenomegaly from liver disease (although liver not severe as mentioned above) doppler shows patent abd veins history of erosive esophagitis continue ppi dvt prophylaxis - lovenox Quality Stroke Does the patient have a stroke diagnosis?: No VTE Prior VTE?: No VTE Risk Level:: Medical - moderate - high VTE Device Contraindication: Treatment Not Indicated VTE Drug Contraindication: N/A - Med Ordered
[2021-02-13] MEDS: Albuterol Sulfate 90 MCG 8 GM INHALER 2 PUFF INHALE (13:21)
--- NOTE | 2021-02-13 13:23 | PC.NURSE ---
Patient refused lasix this morning.Dr Figueroa notified.
[2021-02-13] MEDS: oxyCODONE HCl Immed Release 5 MG TABLET 10 MG PO ×2 (16:01→20:11)
[2021-02-14] MEDS: oxyCODONE HCl Immed Release 5 MG TABLET 10 MG PO ×4 (00:19→14:18)
[2021-02-14 03:27] VITALS: BP 149/83; PULSE 91; RESP 20; TEMP 36.9; O2SAT 96
[2021-02-14 05:33] VITALS: BMI 21.0
[2021-02-14] MEDS: Omeprazole 40 MG CAPSULE.DR PO (06:21)
[2021-02-14 08:00] VITALS: BP 153/88; PULSE 72; RESP 18; TEMP 36.9; O2SAT 93
[2021-02-14] MEDS: 0.9 % Sodium Chloride Flush 3 ML SYRINGE IVFLUSH (08:09)
[2021-02-14] MEDS: Furosemide 40 MG/4 ML VIAL IVPUSH (08:09)
--- NOTE | 2021-02-14 08:30 | CA_ITS ---
Transthoracic Echocardiogram Patient (Last, First, Middle): Arnaud Triplett, Gender: Male Date of : 1965 Age: 55 Procedure Date: 02/14/2021 Procedure Type: Transthoracic Echocardiogram Location: [facility] Height: 167.64 cm Weight: 58.97 kg BSA: 1.67 m2 Heart Rate: bpm BP: 149 / 83 mmHg Cable Respooler: ALVINO Referring MD: Wilbetr Figueroa MD Symptoms: anasarca Study Quality: Technically Difficult Conclusions: - Technically limited study. - Both ventricles are poorly visualized and in limited views systolic function appears to be normal. - Very limited assessment of the valves. Findings Left Ventricle The left ventricle was not well visualized. Regional wall motion abnormalities can not be excluded due to suboptimal endocardial definition. Diastolic function is indeterminate on the basis of available data. E/E prime ratio is <8, consistent with normal filling pressures. Systolic function is probably normal. Right Ventricle The right ventricle was not well visualized. Systolic function is probably normal. Atria The left atrium was not well visualized. The right atrium was not well visualized. Aortic Valve The aortic valve was not well visualized. There is mild calcification of the aortic valve. There is no aortic valve stenosis. Mitral Valve The mitral valve was not well visualized. Pulmonic Valve The pulmonic valve was not well visualized. Tricuspid Valve Normal tricuspid valve structure and function. There is trace tricuspid valve regurgitation. Tricuspid regurgitation envelope is inadequate for calculation of right ventricular systolic pressure. Indeterminate right atrial pressure. Great Vessels All visible segments of the aorta are normal in size. The pulmonary artery was not well visualized. Venous The inferior vena cava does not collapse with inspiration. Pericardium/Pleural There is no evidence of pericardial effusion. Prior Study Comparison No prior study available for comparison. Measurements 2D Linear Measurements IVSd: 0.64 0.6-0.9/0.6-1.0 cm LVIDd: 3.62 3.9-5.3/4.2-5.9 cm LVIDd Index: 2.17 2.4-3.2/2.2-3.1 cm/m2 LVIDs: 2.35 2.0-3.6 cm LVPWd: 0.87 0.7-1.1 cm Ao Root: 3.20 2.1-3.5 cm LA Diam: 2.40 2.7-3.8/3.0-4.0 cm LAIDs Index: 1.44 1.5-2.3 cm/m2 LV Mass: 90.91 67-162/88-224 g LV Mass Index: 54.43 43-95/49-115 g/m2 LVOT Diam: 2.00 3.0+(-)1.3 cm Mitral Valve MV Pk E: 0.66 MV PK A: 0.58 MV Decel Time: 212.00 E/A: 1.10 E'Lateral: 8.49 E'Medial: 11.00 E/E' Med: 6.00 E/E' Lat: 7.70 PHT: 62.00 MVA PHT: 3.55 Decel Bowman: 3.09 Aortic Valve AoV Pk Cristobal: 0.79 AoV Mn Cristobal: 0.56 AoV VTI: 0.17 AoV Pk Grad: 2.00 Aov Mn Grad: 1.00 MIGUE Cont.VTI: 2.31 LVOT LVOT Pk Cristobal: 0.72 LVOT Mn Cristobal: 0.46 LVOT VTI: 0.13 LVOT Pk Grad: 2.00 LVOT Mn Grad: 1.00 LVOT Diam: 2.00 LVOT Area: 3.14 Diastolic Function MV Pk E: 0.66 MV Pk A: 0.58 E/A: 1.10 E'Medial: 11.00 E/E' Med: 6.00 E' Laterial: 8.49 E/E' Lat: 7.70 Right Ventricle TAPSE (mm): 1.92 TVS' Cristobal: 15.30 Tricuspid Valve TR Pk Cristobal: 1.89 TR Pk Grad: 14.00 Great Vessels Aorta Ao Root-2D: 3.20 2.0-3.7 cm Ao Asc: 2.80 2.1-3.4 cm Updated in Other Vendor System with Status of Final Addison Zheng MD electronically signed on 02/15/2021 1:56:59 PM with status of Final
[2021-02-14 11:33] VITALS: BP 156/93; PULSE 73; RESP 22; TEMP 36.6; O2SAT 97
--- NOTE | 2021-02-14 14:55 | P.DS_ITS ---
DS: Providers Provider Date of Service: 02/14/21 Date of admission: 02/12/21 15:17 Primary care physician: [facility] [place] Consults: 02/12/21 15:15 Addiction Medicine Routine Consulting Provider: Chinyere Ovalles Reason for consultation: cruzito DS: Diagnosis Discharge Diagnosis (1) HCV (hepatitis C virus): Status: Acute DS: Medications Discharge Medications Home Medications: Home Medications Medication Instructions Recorded Confirmed pantoprazole 40 mg tablet,delayed 40 mg PO DAILY 03/29/20 02/12/21 release umeclidinium 62.5 mcg-vilanterol 1 inh INHALATION DAILY 03/29/20 02/12/21 25 mcg/actuation powdr for inhalation (Anoro Ellipta) albuterol sulfate 1 amp INHALATION Q4H PRN 02/12/21 02/12/21 nicotine (polacrilex) 2 mg gum 1 mg PO 02/12/21 umeclidinium 62.5 mcg-vilanterol 1 puff INHALATION DAILY 02/12/21 02/12/21 25 mcg/actuation powdr for inhalation (Anoro Ellipta) Previous Rx's Medication Instructions Recorded theophylline 400 mg 400 mg PO DAILY 30 Days #30 tab 07/06/20 tablet,extended release 24 hr furosemide 20 mg tablet (Lasix) 20 mg PO DAILY #30 tab 02/14/21 DS: Summary Hospital Course Hospital Course: Was admitted for anasarca secondary to suspected right-sided heart failure due to severe COPD. He was diuresed with IV Lasix and swelling significantly improved as did pain. Patient was also noted to have acute on chronic hypoxic respiratory failure which also resolved with IV Lasix. Patient had echocardiogram done, results are still pending, patient will follow-up results as outpatient. Patient noted to have pancytopenia due to splenomegaly, abdominal ultrasound showed liver cirrhosis, although recent liver elastography did not show significant fibrosis. He does have history of hep C, could be related to a HCV versus hepatic congestion from right-sided heart failure. Patient is feeling better will be discharged home. Time Spent with Patient Time attestation: Total time spent providing and/or coordinating discharge services: Discharge coordination time: Greater than 30 minutes Quality: Stroke Does the patient have a stroke diagnosis?: No Physical Exam Vital Signs: Vital Signs: Last Vital Signs Temp 97.8 F 02/14/21 11:33 Pulse 73 02/14/21 11:33 Resp 22 H 02/14/21 11:33 BP 156/93 H 02/14/21 11:33 Pulse Ox 97 02/14/21 11:33 Oxygen Flow Rate 2 02/12/21 11:33 Body Mass Index 21.0 General: AO X 3, no acute distress Resp: CTA bilateral CVS: S1,S2,RRR GI: soft, non tender, non distended Neuro: motor grossly intact Psych: appropriate affect DS: Data Data Completed and Pending Labs on day of discharge: Preliminary micro results at discharge 02/12/21 12:19 Blood Culture - Preliminary Blood - Venous No growth after 48 hours. 02/12/21 12:12 Blood Culture - Preliminary Blood - Venous No growth after 48 hours. Discharge Plan Discharge Patient Disposition: Home, Self-Care Discharge Diagnosis: chf Referrals: [place] [Primary Care Provider] - 1 Week Discharge Medications: New furosemide [Lasix] 20 mg tablet 20 mg PO DAILY Qty: 30 RF: 0 Continued albuterol sulfate 2.5 mg /3 mL (0.083 %) solution for nebulization 1 amp inhalation Q4H PRN (Reason: wheezing) RF: 0 nicotine (polacrilex) 2 mg gum 1 mg PO RF: 0 Anoro Ellipta 62.5-25 mcg/actuation blister with device 1 puff inhalation DAILY RF: 0 theophylline 400 mg tablet extended release 24 hr 400 mg PO DAILY 30 Days Qty: 30 RF: 6 Anoro Ellipta 62.5-25 mcg/actuation blister with device 1 inh inhalation DAILY RF: 0 pantoprazole 40 mg tablet,delayed release (DR/EC) 40 mg PO DAILY RF: 0 Discharge Orders: Discharge Order (Routine); Ordered 02/14/21 Ordered By: Wilbert Figueroa Diet: advance to usual diet Activity on Discharge: As tolerated Stand Alone Forms: Patient Portal Discharge page Care Plan Goals: recovery Health Concerns: opioid dependence, chf Plan of Treatment: lasix, avoid drugs, follow up echo results Assessment: see above
--- NOTE | 2021-02-14 14:58 | MHC.CM.PN ---
Patient has been medically cleared for dc to home today, no services.
--- NOTE | 2021-02-14 16:18 | P.EN_ITS ---
Event Note Date of Service: 02/14/21 Event Note: This assembly instructions writer met briefly with Mr. Triplett this morning, along with ad diction team RN. He reports that he has been using 1 bundle per day IV heroin, with last used 3 days ago. He reports he is not using any other substances. He reports he is an active client at [facility] methadone clinic, and receives 50 mg daily. He reports that he receives take-home doses, and that he would prefer to not engage with any type of treatment with us at this time, as he plans to be discharged and return to his clinic. This has been shared with his provider, Dr. Figueroa, via secure electronic messaging. Thank you.
== END 2021-02-14 15:55 | disposition home or self-care (01) | DRG 194 ==
LOC: HO.ED 15:00 → HO.EDOVER 15:27 → HO.S3 21:21 → HO.IMC 21:22
PROVIDERS: Physician Assistant; Admitting Provider Internal Medicine; Emergency Provider Internal Medicine; Visit Provider Internal Medicine
DX: I50.810 Right heart failure, unspecified (principal); J96.21 Acute and chronic respiratory failure with hypoxia; D61.818 Other pancytopenia; F17.210 Nicotine dependence, cigarettes, uncomplicated; K22.10 Ulcer of esophagus without bleeding; Z99.81 Dependence on supplemental oxygen; B19.20 Unspecified viral hepatitis C without hepatic coma; J44.9 Chronic obstructive pulmonary disease, unspecified; I87.2 Venous insufficiency (chronic) (peripheral); K74.60 Unspecified cirrhosis of liver; F11.23 Opioid dependence with withdrawal; Z20.822 Contact with and (suspected) exposure to COVID-19; Z71.6 Tobacco abuse counseling; Z79.899 Other long term (current) drug therapy
CPT/HCPCS: 36415; 71045; 71275; 76705; 76870; 80048; 80053; 81001; 83605; 83880; 85025; 85027; 85610; 85730; 87040; 87086; 87635; 93005; 93306; 93970; 93975; 99285; J1650; J1940; J2405; J2543; J3370; Q9967

== ENCOUNTER 2021-02-17 12:43 | Emergency (ER) | payer MEDICAID, SELFPAY ==
--- NOTE | 2021-02-17 12:50 | ED.SOB ---
HPI - SOB/Dyspnea General Chief Complaint: General Medical Stated Complaint: low spo2 Time Seen by Provider: 02/17/21 12:50 Source: patient and EMS Mode of arrival: EMS Limitations: no limitations History of Present Illness HPI Narrative: 55 y/o with history of severe COPD on 3L NC at baseline, CHF, Hepatitis C, substance abuse on Methadone who presents to the ED via EMS from his methadone clinic with anxiety and SOB when he ran out of oxygen with his portable O2 tank. He was found saturating 86% on room air and was placed on 4L NC with improvement. No chest pain. SOB and anxiety resolved. Calling his brother for a ride home on arrival. MD elicited complaint: shortness of breath and anxiety Pertinent past history: COPD Onset (ago): minute(s) Timing: now resolved Severity: moderate Relieving factors: oxygen Known history of: COPD Associated symptoms: denies other symptoms Treatment prior to arrival: oxygen Related Data Home oxygen amount: 3 liters Home Medications Medication Instructions Recorded Confirmed pantoprazole 40 mg tablet,delayed 40 mg PO DAILY 03/29/20 02/12/21 release umeclidinium 62.5 mcg-vilanterol 1 inh INHALATION DAILY 03/29/20 02/12/21 25 mcg/actuation powdr for inhalation (Anoro Ellipta) albuterol sulfate 1 amp INHALATION Q4H PRN 02/12/21 02/12/21 nicotine (polacrilex) 2 mg gum 1 mg PO 02/12/21 umeclidinium 62.5 mcg-vilanterol 1 puff INHALATION DAILY 02/12/21 02/12/21 25 mcg/actuation powdr for inhalation (Anoro Ellipta) Previous Rx's Medication Instructions Recorded theophylline 400 mg 400 mg PO DAILY 30 Days #30 tab 07/06/20 tablet,extended release 24 hr furosemide 20 mg tablet (Lasix) 20 mg PO DAILY #30 tab 02/14/21 Allergies Allergy/AdvReac Type Severity Reaction Status Date / Time No Known Allergies Allergy Verified 02/13/21 14:54 Review of Systems Constitutional: Constitutional: Denies chills, Denies fever(s) and Denies headache(s) Eyes: Eyes: Reports no additional eye complaints ENT: Reports Normal hearing present and Denies headache(s) Cardiovascular: Cardiovascular: Denies chest pain, Denies lightheadedness, Denies dyspnea and Reports dyspnea on exertion Respiratory: Respiratory: Reports cough, Denies dyspnea and Reports dyspnea on exertion Gastrointestinal: Gastrointestinal: Denies nausea and Denies vomiting Neurologic: Reports Normal hearing present and Denies headache(s) Psychiatric: Psychiatric: Reports anxiety [facility] Past Medical History Source: unable to obtain Medical History Erosive esophagitis HCV (hepatitis C virus) Latent tuberculosis Social History Social History Household Members: Family Housing: House Do you presently have visiting nurse or other home services: No Alcohol intake: former Patient Tobacco Use Status: Current someday Tobacco user Cigarettes Per Day: 10 Years Smoked: 30 yrs Substance Use Type: Heroin Advance Directives: No Advance Directives Information Provided: No service: No Current occupational status: unemployed Physical Exam Vital Signs: Vital Signs: Last Vital Signs Temp 97.9 F 02/17/21 12:55 Pulse 83 02/17/21 12:55 Resp 18 02/17/21 12:55 BP 118/80 02/17/21 12:55 Pulse Ox 98 02/17/21 12:55 Oxygen Flow Rate 3 02/17/21 12:55 Body Mass Index 20.9 Const: General: alert, awake, ill appearing chronically and poor hygiene Nutritional Appearance: average body habitus Orientation/consciousness: patient oriented x3 Limitations: no limitations HENMT: Head: Yes normal to inspection Ears: hearing grossly normal bilaterally and external ears normal General nose exam: Normal external nose present Face and sinus: Yes normal facial exam and Yes face symmetric Eyes: General: appearance normal, both eyes and all related structures Neck: Neck: Yes normal visual inspection Chest: Chest palpation & inspection: normal inspection of the chest Resp: Effort & Inspection: normal respiratory effort and able to speak in complete sentences Auscultation: diminished lung sounds diffuse Cardio: Rate: regular rate Rhythm: regular rhythm Heart sounds: S1 normal heart sound present and S2 normal heart sound present GI: Inspection: Yes normal to inspection Neuro: General: patient oriented x3, tone normal and moves all extremities Cranial nerves: Yes Normal hearing present Cognition (Neuro): normal cognition Extrem: General: Yes normal to inspection Psych: Appearance: disheveled Mental Status: mental status grossly normal Speech and movement: Normal speech and movement present Affect: normal affect Thought process: Normal thought process present Thought content: Normal thought content present Course Course Course Narrative: 55 y/o male presenting with hypoxia to 86% after running out of O2 at Methadone clinic with portal tank. His brother is coming to pick him up now. He lives down the [address] and has an elevator up to his apartment. He plenty of oxygen tanks at home. He is declining EMS transport back to his house, his brother will take him. We discussed risks of leaving without continuous O2 on and he accepts the risk of potential . He reports being discharged from [facility] the other day without oxygen, went right home and got his O2 on without issue. AMA paperwork signed. Patient has capacity to make his own decisions. Discharge Plan Discharge Clinical Impression: Supplemental oxygen dependent Patient Disposition: Left Against Medical Advice Instructions: Using Oxygen at Home (ED) Additional Instructions: If you develop new or worsening symptoms call 911 or come back to the ER for further evaluation. Prescriptions: No Action albuterol sulfate 2.5 mg /3 mL (0.083 %) solution for nebulization 1 amp inhalation Q4H PRN (Reason: wheezing) RF: 0 nicotine (polacrilex) 2 mg gum 1 mg PO RF: 0 Anoro Ellipta 62.5-25 mcg/actuation blister with device 1 puff inhalation DAILY RF: 0 furosemide [Lasix] 20 mg tablet 20 mg PO DAILY Qty: 30 RF: 0 theophylline 400 mg tablet extended release 24 hr 400 mg PO DAILY 30 Days Qty: 30 RF: 6 Anoro Ellipta 62.5-25 mcg/actuation blister with device 1 inh inhalation DAILY RF: 0 pantoprazole 40 mg tablet,delayed release (DR/EC) 40 mg PO DAILY RF: 0 Discharge Date/Time: 02/17/21 13:19
[2021-02-17 12:55] VITALS: BP 118/80; PULSE 83; RESP 18; TEMP 36.6; O2SAT 98; BMI 20.9
--- NOTE | 2021-02-17 13:18 | PC.NURSE ---
PROVIDER DISCUSSED AMA WITH PATIENT, PT VERBALIZED UNDERSTANDING OF RISKS LEAVING AMA AND WITHOUT O2, PT ASSURED THAT HE LIVES <1 MILE AWAY, HIS BROTHER IS HERE TO TAKE HIM HOME WHERE HE HAS O2. PT AMBULATED OUT OF ED WITH EVEN STEADY GAIT W/OUT COMPLAINT.
== END 2021-02-17 13:19 | disposition left against medical advice (07) ==
LOC: HO.ED 13:11
PROVIDERS: Emergency Provider Emergency Medicine
DX: R06.02 Shortness of breath (principal); Z99.81 Dependence on supplemental oxygen; F41.9 Anxiety disorder, unspecified; J44.9 Chronic obstructive pulmonary disease, unspecified; F11.250 Opioid dependence with opioid-induced psychotic disorder with delusions; F17.210 Nicotine dependence, cigarettes, uncomplicated; B19.20 Unspecified viral hepatitis C without hepatic coma
CPT/HCPCS: 99281; 99282

== ENCOUNTER 2021-03-28 14:43 | Outpatient (REF) | payer MEDICAID, SELFPAY ==
--- NOTE | ~2021-03-28 | CT_ITS ---
EXAMINATION: CT CHEST WITHOUT CONTRAST CLINICAL INFORMATION: Pulmonary nodules. COMPARISON: Most recent CT chest dated 02/12/2021. CT chest dated 04/20/2020. TECHNIQUE: Multidetector volumetric CT imaging of the chest was done. Axial MIP volume rendering provided. Sagittal and coronal reformatted images were obtained. This CT examination was performed using dose optimization techniques as appropriate, variously including the following: *Automated exposure control *Adjustment of mA and/or kV according to patient size (this includes techniques or standardized protocols for targeted exams where dose is matched to indication/reason for exam; i.e. extremities or head) *Use of iterative reconstruction technique DLP: 102 mGy-cm FINDINGS: APPLICATIONS PACKAGER: Unremarkable. LUNGS: Mild emphysematous changes are redemonstrated. Stable 0.3 cm calcified granuloma within the left upper lobe. No new pulmonary nodule, mass, or airspace consolidation. The central airways are patent. MEDIASTINUM: No cardiomegaly. No pericardial effusion. No thoracic aortic dilatation. No significant superior mediastinal or hilar lymphadenopathy. Evaluation limited without IV contrast. PLEURA: There is no pleural effusion. No pleural mass or thickening. AXILLA: No lymphadenopathy. UPPER ABDOMEN: Unremarkable. OSSEOUS STRUCTURES: Unremarkable. CT/CT chest wo con IMPRESSION: Mild emphysematous changes. Stable left upper lobe calcified granuloma. No new pulmonary nodule, mass, or airspace consolidation.
== END 2021-03-28 14:44 | disposition home or self-care (01) ==
LOC: HO.CT 14:43
PROVIDERS: Visit Provider Internal Medicine Pulmonary Disease
DX: R91.8 Other nonspecific abnormal finding of lung field (principal)
CPT/HCPCS: 71250

== ENCOUNTER 2021-10-22 08:37 | Inpatient (IN) | payer MEDICAID, SELFPAY ==
[2021-10-22] VITALS (11 sets, daily range): BP systolic 133–159; BP diastolic 77–93; PULSE 96–108; RESP 12–29; TEMP 36.9–37; O2SAT 91–95; BMI 20.9
--- NOTE | ~2021-10-22 | CT_ITS ---
EXAMINATION: CT HEAD WITHOUT CONTRAST CLINICAL INFORMATION: Pain status post fall, rule out intracranial abnormality COMPARISON: None TECHNIQUE: Contiguous axial imaging was performed from the skull base to vertex without intravenous administration of contrast. Coronal and sagittal reformatted images were obtained. This CT examination was performed using dose optimization techniques as appropriate, variously including the following: *Automated exposure control *Adjustment of mA and/or kV according to patient size (this includes techniques or standardized protocols for targeted exams where dose is matched to indication/reason for exam; i.e. extremities or head) *Use of iterative reconstruction technique DLP: 712.26 mGy-cm FINDINGS: The cortical sulci are normal. The lateral ventricles are symmetrical. The third and fourth ventricles are in their normal midline position. The basilar and prepontine cisterns are unremarkable. There is no acute intra or extracerebral abnormality. There is no mass effect or midline shift. Sections through the bony calvarium are unremarkable. The paranasal sinuses are clear. The bony orbits and orbital contents are unremarkable. CT/CT head/brain wo con IMPRESSION: No acute intracranial pathology.
--- NOTE | ~2021-10-22 | XR_ITS ---
EXAMINATION: XR CHEST CLINICAL INFORMATION: Pneumonia follow-up COMPARISON: 10/22/2021 TECHNIQUE: Frontal view of the chest was obtained. FINDINGS: The lungs are well expanded. There is no focal consolidation, edema, or effusion. No pneumothorax. The cardiomediastinal silhouette is within normal limits. No acute osseous abnormality. XR/XR chest 1V IMPRESSION: Clear lungs. Improved aeration at the right base.
--- NOTE | ~2021-10-22 | XR_ITS ---
EXAMINATION: XR CHEST CLINICAL INFORMATION: Fall. COMPARISON: CT chest 03/28/2021 TECHNIQUE: Frontal view of the chest was obtained. FINDINGS: The lungs are hyperinflated but clear of acute pneumonic process heart size and progress clarities normal. No gross bony abnormality seen. XR/XR chest 1V IMPRESSION: Hyperinflated lungs without acute process. Similar findings were seen on the previous CT chest 03/28/2021
--- NOTE | ~2021-10-22 | CT_ITS ---
EXAMINATION: CT cervical spine wo con INDICATION INFORMATION: Reason for Exam fall COMPARISON: None TECHNIQUE: Noncontrast CT examination cervical spine was performed. Coronal and sagittal images were created for the examination at the technologist workstation. This CT examination was performed using dose optimization techniques as appropriate, variously including the following: *Automated exposure control *Adjustment of mA and/or kV according to patient size (this includes techniques or standardized protocols for targeted exams where dose is matched to indication/reason for exam; i.e. extremities or head) *Use of iterative reconstruction technique DLP: 722 mGy-cm FINDINGS: Please refer to separately dictated CT brain for evaluation of the intracranial findings. There is no evidence of acute cervical spine fracture. Vertebral bodies remain normal in height. Loss of the usual cervical spine lordosis. Multilevel loss of disc space height. No pre- or paravertebral soft tissue abnormality is identified. Interlobular septal thickening in the lung apices which may reflect a degree of pulmonary edema. The thyroid gland is unremarkable. CT/CT cervical spine wo con IMPRESSION: No acute cervical spine fracture. Loss of the usual cervical spine lordosis which may be due to positioning or muscle spasm. Interlobular septal thickening in the lung apices which may reflect a degree of pulmonary edema.
--- NOTE | ~2021-10-22 | FL_ITS ---
EXAMINATION: XR FLUOROSCOPY WITH IMAGES CLINICAL INFORMATION: Right-sided gamma nail. COMPARISON: None. TECHNIQUE: Fluoroscopy performed by Dr. Triplett. Fluoroscopy time: 0.6 minutes DAP: 0.178 mGycm2 Images: 4 FL/FL guidance in OR FINDINGS/IMPRESSION: Final images show the patient is status post ORIF with right gamma nail in place showing good anatomic alignment and no hardware abnormality. Please refer to the procedure report for more detailed findings.
--- NOTE | ~2021-10-22 | XR_ITS ---
EXAMINATION: XR HIP, RIGHT CLINICAL INFORMATION: Right hip pain status post fall. COMPARISON: None TECHNIQUE: Two views of the right hip. FINDINGS: Acute right intertrochanteric fracture with associated varus angulation. The right hip joint and visualized right hemipelvis are intact. The soft tissues are unremarkable. XR/XR hip RT min 2V IMPRESSION: Acute, mildly angulated right intertrochanteric fracture.
--- NOTE | ~2021-10-22 | FL_ITS ---
EXAMINATION: XR BARIUM SWALLOW CLINICAL INFORMATION: Dysphagia. ?aspiration. COMPARISON: None TECHNIQUE: Modified barium swallow with speech pathologist FINDINGS: Patient swallowed multiple consistencies from thin liquid to barium-coated cookie. No laryngeal penetration or tracheal aspiration identified. FLUOROSCOPY TIME: 0.9 minutes DOSE AREA PRODUCT: 0.674 Gy-cm2 (sarmiento-centimeter squared) FL/FL barium swallow modified IMPRESSION: Unremarkable examination.
--- NOTE | ~2021-10-22 | CT_ITS ---
EXAMINATION: CT ANGIOGRAM OF THE CHEST WITH AND WITHOUT CONTRAST (CT PULMONARY ANGIOGRAM FOR PE) CLINICAL INFORMATION: Reason for Exam hypoxia COMPARISON: Previous chest x-ray most recent 10/22/[address] March 2021 TECHNIQUE: Prior to contrast administration, noncontrast localization images were obtained. Subsequently, multidetector volumetric imaging was performed from the thoracic inlet to below the diaphragms following the administration of 65 mL Omnipaque 350 intravenous contrast. No contrast reaction reported Sagittal, coronal, and MIP oblique sagittal reformatted images were obtained on the CT workstation, uploaded to PACS, and reviewed. This CT examination was performed using dose optimization techniques as appropriate, variously including the following: *Automated exposure control *Adjustment of mA and/or kV according to patient size (this includes techniques or standardized protocols for targeted exams where dose is matched to indication/reason for exam; i.e. extremities or head) *Use of iterative reconstruction technique Total exam dose-length product 113 mGy-cm FINDINGS: QUALITY OF STUDY/CONTRAST BOLUS: Satisfactory. PULMONARY ARTERIES: No central or segmental pulmonary emboli. THORACIC AORTA: No aneurysm or dissection. LUNG: There is mild bronchial wall thickening and peribronchial nodules or tree-in-bud appearance suggestive of airways disease. This is seen diffusely throughout the lungs. There is question of small infiltrate or bronchopneumonia in the posterior basal segment of the right lower lobe. The lungs are otherwise clear. PLEURA: No pleural effusion or pneumothorax. MEDIASTINUM: Normal heart size. No pericardial effusion. No hilar or mediastinal lymphadenopathy. No evidence of septal bowing or right heart strain. CHEST WALL/AXILLA: No axillary or internal mammary lymphadenopathy. OSSEOUS STRUCTURES: No acute or suspicious osseous abnormality. UPPER ABDOMEN: There is question of mild left hydronephrosis or pelviectasis. This may be similar to previous ultrasound November 2020.. No reflux of contrast into the hepatic veins to suggest elevated right heart pressures. CT/CT angio chest PE protocol IMPRESSION: No evidence of pulmonary embolism. Mild diffuse bronchial wall thickening and peribronchial small nodules or tree-in-bud appearance suggestive of airways disease. Question small infiltrate or bronchopneumonia in the right lower lobe. VTE: negative
--- NOTE | 2021-10-22 08:54 | ED.FALL ---
HPI - Fall General Chief Complaint: Fall Stated Complaint: r hip pain Time Seen by Provider: 10/22/21 08:52 Source: patient, family and EMS Mode of arrival: EMS Limitations: no limitations History of Present Illness HPI Narrative: missed his methadone dose this AM complaint: fall Onset (ago): minute(s) Fall from: standing Place fall occurred: home Loss of consciousness: none Prolonged down time: no Symptoms prior to fall: none (stands frequently and leans on a table, he sometimes falls asleep standing up this is not unusual today he leaned and fell hitting R hip - no injury to head or neck no other injuries) Context: tripped/slipped Location of injury: pelvis (R hip) Severity: moderate Quality: dull and aching Associated symptoms (after fall): denies Related Data Home Medications Medication Instructions Recorded Confirmed pantoprazole 40 mg tablet,delayed 40 mg PO DAILY 03/29/20 02/12/21 release umeclidinium 62.5 mcg-vilanterol 1 inh INHALATION DAILY 03/29/20 02/12/21 25 mcg/actuation powdr for inhalation (Anoro Ellipta) albuterol sulfate 1 amp INHALATION Q4H PRN 02/12/21 02/12/21 nicotine (polacrilex) 2 mg gum 1 mg PO 02/12/21 umeclidinium 62.5 mcg-vilanterol 1 puff INHALATION DAILY 02/12/21 02/12/21 25 mcg/actuation powdr for inhalation (Anoro Ellipta) Previous Rx's Medication Instructions Recorded theophylline 400 mg 400 mg PO DAILY 30 Days #30 tab 07/06/20 tablet,extended release 24 hr furosemide 20 mg tablet (Lasix) 20 mg PO DAILY #30 tab 02/14/21 Allergies Allergy/AdvReac Type Severity Reaction Status Date / Time No Known Allergies Allergy Verified 02/13/21 14:54 Review of Systems Review of Systems: Constitutional : No Fever, No Chills ENT/Mouth : No Ear Pain, No Hoarseness, No sore throat Eyes: No Eye Pain, No Swelling, No Redness, No Foreign Body Cardiovascular : No Chest Pain, No SOB Respiratory : No Cough, No Dyspnea Gastrointestinal : No Nausea, No Vomiting, No Diarrhea, No abdominal Pain Genitourinary : No Dysuria, No Hematuria Musculoskeletal : positive joint pain, No Myalgias, No Joint Swelling Skin : No Skin lacerations, No rash Neuro : No Weakness, No Numbness, No Loss of Consciousness, No Dizziness, No Headache Psych : No Anxiety/Panic, No Depression Heme/Lymph: no easy bruising, no Lymphadenopathy Endocrine : No Polyuria, No Polydipsia All other systems reviewed and are negative [facility] Past Medical History Attestation statement: The following information was validated with the patient. Medical History Erosive esophagitis HCV (hepatitis C virus) Latent tuberculosis Social History Social History Household Members: Family Housing: House Do you presently have visiting nurse or other home services: No Alcohol intake: former Patient Tobacco Use Status: Current someday Tobacco user Cigarettes Per Day: 10 Years Smoked: 30 yrs Substance Use Type: Heroin Advance Directives: No Advance Directives Information Provided: Yes service: No Current occupational status: unemployed Physical Exam Vital Signs: Vital Signs: Last Vital Signs Temp 98.5 F 10/22/21 08:53 Pulse 105 H 10/22/21 11:02 Resp 14 10/22/21 11:02 BP 133/77 10/22/21 11:02 Pulse Ox 92 10/22/21 11:02 Oxygen Flow Rate 5 10/22/21 08:45 BMI result Body Mass Index 20.9 Appearance: Alert. Oriented X3. No acute distress. Eyes: Pupils equal, round and reactive to light. ENT: Pharynx normal. atraumatic Neck: Normal inspection. Neck supple. CVS: Normal heart rate and rhythm. Pulses normal. Chest: nontender Respiratory: No respiratory distress. Breath sounds decreased Abdomen: Soft and nontender. Back: atraumatic Skin: Skin warm and dry. Normal skin color. Normal skin turgor. Extremities: trace pitting lower extremity edema. No calf ttp R hip ttp no knee or ankle pain no ttp Neuro: Oriented X 3. No motor deficit. No sensory deficit. Course Course Course Narrative: orthopedics aware 1136am - family and patient aware of fracture need to discuss surgery options given his lung issues sees eileen here no EKG changes, K likely hemolyzed, lokelma and calcium ordered MDM - Fall MDM Narrative Medical decision making narrative: 56 yo male with hx of opiate dependence, hep C, GERD, peripheral edema, end stage COPD - frequently stands at home and leans on tables to aid in his breathing this is not new for him. He was doing the same today and fell asleep standing up - family and patient state that this is not new for him. He c/o injuring R hip during fall - no head injury no DOAC. He is at his baseline. Family witnessed fall. He is due for his methadone dose this AM. Xrays of R hip ordered. I do not see a contusion of the R hip. Distal NV intact. Lab Data Result diagrams: 10/22/21 10:28 10/22/21 10:28 Labs: Lab Results 10/22/21 10/22/21 10/22/21 Range/Units 10:28 10:28 10:28 WBC 4.0 L (4.8-10.8) X10*3/uL RBC 4.17 L (4.60-5.80) X10*6/uL Hgb 11.1 L (14.0-18.0) g/dl Hct 34.6 L (42.0-52.0) % MCV 83.0 (80.0-98.0) fL MCH 26.6 L (27.0-33.0) pg MCHC 32.1 (31.0-36.0) g/dl RDW 15.6 (11.0-16.0) % Plt Count 50 L (160-400) X10*3/uL MPV 9.1 L (9.4-12.4) fL Immature Gran % (Auto) Cancelled Neut % (Auto) Cancelled Lymph % (Auto) Cancelled [place] % (Auto) Cancelled Eos % (Auto) Cancelled Baso % (Auto) Cancelled Lymph # (Auto) Cancelled [place] # (Auto) Cancelled Eos # (Auto) Cancelled Baso # (Auto) Cancelled Abs Immat Gran (auto) Cancelled Absolute Neuts (auto) Cancelled Absolute Nucleated RBC 0.000 (0.0-0.012) X10*3/uL Nucleated RBC % (auto) 0.0 (0.0-0.2) /100WBC Neutrophils % (Manual) 79 H (45-73) % Band Neutrophils % 2 L (3-5) % Lymphocytes % (Manual) 5 L (20-40) % Monocytes % (Manual) 14 H (2-11) % Abs Neuts (Manual) 3.2 (2.0-8.3) X10*3/uL Lymphocytes # (Manual) 0.2 L (1.2-4.9) X10*3/uL Monocytes # (Manual) 0.6 (0.1-1.2) X10*3/uL Platelet Estimate DECREASED (NORMAL) Plt Morphology Comment NORMAL RBC Morphology NOTED Ovalocytes 1+ (5-14) /OIF PT 13.8 H (9.9-13.0) SEC INR 1.2 H (0.9-1.1) APTT 47.7 H (24.1-38.0) SEC Sodium 137 (135-145) mmol/L Potassium 6.0 H* D (3.3-5.1) mmol/L Chloride 95 L (96-108) mmol/L Carbon Dioxide 31 H (22-29) mmol/L Anion Gap 17 (12-20) BUN 19 H (9-16) mg/dL Creatinine 0.70 (0.5-1.4) mg/dL Estim Creat Clear Calc 99.4 Estimated GFR > 60 Random Glucose 120 H (60-115) mg/dL Calcium 9.0 (8.4-10.2) mg/dL COVID-19 (TATIANNA) (Negative) COVID-19 Clin Com 10/22/21 Range/Units 10:28 WBC (4.8-10.8) X10*3/uL RBC (4.60-5.80) X10*6/uL Hgb (14.0-18.0) g/dl Hct (42.0-52.0) % MCV (80.0-98.0) fL MCH (27.0-33.0) pg MCHC (31.0-36.0) g/dl RDW (11.0-16.0) % Plt Count (160-400) X10*3/uL MPV (9.4-12.4) fL Immature Gran % (Auto) Neut % (Auto) Lymph % (Auto) Davis % (Auto) Eos % (Auto) Baso % (Auto) Lymph # (Auto) Davis # (Auto) Eos # (Auto) Baso # (Auto) Abs Immat Gran (auto) Absolute Neuts (auto) Absolute Nucleated RBC (0.0-0.012) X10*3/uL Nucleated RBC % (auto) (0.0-0.2) /100WBC Neutrophils % (Manual) (45-73) % Band Neutrophils % (3-5) % Lymphocytes % (Manual) (20-40) % Monocytes % (Manual) (2-11) % Abs Neuts (Manual) (2.0-8.3) X10*3/uL Lymphocytes # (Manual) (1.2-4.9) X10*3/uL Monocytes # (Manual) (0.1-1.2) X10*3/uL Platelet Estimate (NORMAL) Plt Morphology Comment RBC Morphology Ovalocytes /OIF PT (9.9-13.0) SEC INR (0.9-1.1) APTT (24.1-38.0) SEC Sodium (135-145) mmol/L Potassium (3.3-5.1) mmol/L Chloride (96-108) mmol/L Carbon Dioxide (22-29) mmol/L Anion Gap (12-20) BUN (9-16) mg/dL Creatinine (0.5-1.4) mg/dL Estim Creat Clear Calc Estimated GFR Random Glucose (60-115) mg/dL Calcium (8.4-10.2) mg/dL COVID-19 (TATIANNA) Negative (Negative) COVID-19 Clin Com See Note ECG Data Attestation: I personally reviewed and interpreted this ECG as follows: ECG interpretation date: 10/22/21 ECG interpretation time: 10:43 Interpretation: Rate: 110 Rhythm: sinus tachycardia [place]: normal Normal P waves. Normal CHINO. Normal QRS complex. ST T wave : normal no STEVIE qTC: normal prior studies: no acute ischemia The study has been interpreted contemporaneously by me. Discharge Plan Discharge Clinical Impression: Acute hip pain Qualifiers: Laterality: right Qualified Code(s): M25.551 - Pain in right hip Closed intertrochanteric fracture Qualifiers: Encounter type: initial encounter Fracture alignment: nondisplaced Laterality: right Qualified Code(s): S72.144A - Nondisplaced intertrochanteric fracture of right femur, initial encounter for closed fracture Patient Disposition: Admitted As Inpatient
--- NOTE | 2021-10-22 10:14 | ECG_ITS ---
Test Reason : copd Blood Pressure : / mmHG Vent. Rate : 110 BPM Atrial Rate : 110 BPM P-R Int : 118 ms QRS Dur : 080 ms QT Int : 298 ms P-R-T Axes : 068 066 045 degrees QTc Int : 403 ms Artifact in tracing Sinus tachycardia Otherwise normal ECG When compared with ECG of 12-FEB-2021 12:33, No significant change was found Referred By: Janice Dee Electronically Signed By:KELSEY LOUIS
[2021-10-22 10:37] LABS: Hematocrit 34.6 % (42.0-52.0); Hemoglobin 11.1 g/dl (14.0-18.0); Mean Corpuscular HGB Conc 32.1 g/dl (31.0-36.0); Mean Corpuscular Hemoglobin 26.6 pg (27.0-33.0); Mean Platelet Volume 9.1 fL (9.4-12.4); Red Blood Count 4.17 X10*6/uL (4.60-5.80); Red Cell Distribution Width 15.6 % (11.0-16.0)
[2021-10-22 10:40] LABS: INTERNATIONAL NORM RATIO 1.2 (0.9-1.1); Prothrombin Time 13.8 SEC (9.9-13.0)
[2021-10-22 10:43] LABS: Partial Thromboplastin Time 47.7 SEC (24.1-38.0)
[2021-10-22 10:44] LABS: Platelet Count 50 X10*3/uL (160-400)
[2021-10-22 10:47] LABS: COVID-19 Test Negative (Negative)
[2021-10-22 11:00] LABS: Band Neutrophils Percent 2 % (3-5); Lymphocytes Absolute Manual 0.2 X10*3/uL (1.2-4.9); Lymphocytes Percent Manual 5 % (20-40); Monocytes Absolute Manual 0.6 X10*3/uL (0.1-1.2); Monocytes Percent Manual 14 % (2-11); Neutrophils Absolute Manual 3.2 X10*3/uL (2.0-8.3); Neutrophils Percent Manual 79 % (45-73)
[2021-10-22 11:01] LABS: RBC Morphology NOTED
[2021-10-22 11:02] LABS: Ovalocytes 1+ (5-14) /OIF; Platelet Estimate DECREASED (NORMAL); Platelet Morphology Comment NORMAL
[2021-10-22 11:03] LABS: Blood Urea Nitrogen 19 mg/dL (9-16); Creatinine Clr Calc Pharmacy 99.4; Estimated Glomerular Filt Rate > 60; Glucose Random 120 mg/dL (60-115)
[2021-10-22 11:31] LABS: Anion Gap 17 (12-20); Carbon Dioxide 31 mmol/L (22-29); Chloride 95 mmol/L (96-108); Sodium 137 mmol/L (135-145)
--- NOTE | 2021-10-22 11:54 | PM.IMHP ---
History of Present Illness Date of Service: 10/22/21 Chief Complaint: Fall and hip fracture 56 year old male with opiate dependence, hep C, GERD, peripheral edema chronic venous stais, chronic respiratory due to end stage COPD on home O2. He has the habit of standing and leaning against a table to help him breath and was doing in the middle of the night when he felt asleep and fell and injured his right hip, Xray shows Acute, mildly angulated right intertrochanteric fracture--ortho is aware and will arrange for orperative repair. There is incidental potassium of 6 with normal creatinine and suspected hydrolyzed specimen ? Review of Systems Review of Systems: Gen: no fever Resp: + sob, + cough--chronic CV: no chest, no [place], no leg edema GI: No n/v, no abd pain Neuro: No confusion right hip pain with movment Yes all other systems are reviewed and are negative [facility] Medical History (Updated 10/22/21 @ 11:57 by Nabor Irene MD) Erosive esophagitis HCV (hepatitis C virus) Latent tuberculosis Severe chronic obstructive pulmonary disease Family History (Updated 10/22/21 @ 12:18 by Nabor Irene MD) Mother HTN (hypertension) Brother COPD (chronic obstructive pulmonary disease) Social History Household Members: Family Housing: House Do you presently have visiting nurse or other home services: No Alcohol intake: former Patient Tobacco Use Status: Current someday Tobacco user Cigarettes Per Day: 10 Years Smoked: 30 yrs Substance Use Type: Heroin Advance Directives: No Advance Directives Information Provided: Yes service: No Current occupational status: unemployed Meds Allergies Allergy/AdvReac Type Severity Reaction Status Date / Time No Known Allergies Allergy Verified 02/13/21 14:54 Active Medications: Current Medications Calcium Gluconate (Calcium Gluconate) 2 gm in 100 mls @ 50 mls/hr IV ONCE ONE Stop: 10/22/21 13:29 Home Medications Medication Instructions Recorded Confirmed Last Taken Type pantoprazole 40 mg tablet,delayed 40 mg PO DAILY 03/29/20 10/22/21 Unknown History release umeclidinium 62.5 mcg-vilanterol 1 puff INHALATION DAILY 02/12/21 10/22/21 Unknown History 25 mcg/actuation powdr for inhalation (Anoro Ellipta) albuterol sulfate 1 amp INHALATION Q4H PRN 10/22/21 10/22/21 Unknown History albuterol sulfate 90 mcg/actuation 2 puff INHALATION Q6H PRN 10/22/21 10/22/21 Unknown History aerosol inhaler (ProAir HFA) Physical Exam Vital Signs and Narrative: Vital Signs: Last Vital Signs Temp 98.5 F 10/22/21 08:53 Pulse 105 H 10/22/21 11:02 Resp 14 10/22/21 11:02 BP 133/77 10/22/21 11:02 Pulse Ox 92 10/22/21 11:02 Oxygen Flow Rate 5 10/22/21 08:45 BMI result Body Mass Index 20.9 Results Labs CBC and Chem 7: 10/23/21 06:13 10/23/21 06:13 Labs: Laboratory Results - last 24 hr 10/22/21 10/22/21 10/22/21 10:28 10:28 10:28 MCV 83.0 MCH 26.6 L MCHC 32.1 RDW 15.6 Plt Count 50 L MPV 9.1 L Immature Gran % (Auto) Cancelled Neut % (Auto) Cancelled Lymph % (Auto) Cancelled [place] % (Auto) Cancelled Eos % (Auto) Cancelled Baso % (Auto) Cancelled Lymph # (Auto) Cancelled [place] # (Auto) Cancelled Eos # (Auto) Cancelled Baso # (Auto) Cancelled Abs Immat Gran (auto) Cancelled Absolute Neuts (auto) Cancelled Absolute Nucleated RBC 0.000 Nucleated RBC % (auto) 0.0 Neutrophils % (Manual) 79 H Band Neutrophils % 2 L Lymphocytes % (Manual) 5 L Monocytes % (Manual) 14 H Abs Neuts (Manual) 3.2 Lymphocytes # (Manual) 0.2 L Monocytes # (Manual) 0.6 Platelet Estimate DECREASED Plt Morphology Comment NORMAL RBC Morphology NOTED Ovalocytes 1+ (5-14) PT 13.8 H INR 1.2 H APTT 47.7 H Anion Gap 17 Estim Creat Clear Calc 99.4 Estimated GFR > 60 Random Glucose 120 H Calcium 9.0 COVID-19 (TATIANNA) COVID-19 Clin Com 10/22/21 10:28 MCV MCH MCHC RDW Plt Count MPV Immature Gran % (Auto) Neut % (Auto) Lymph % (Auto) [place] % (Auto) Eos % (Auto) Baso % (Auto) Lymph # (Auto) [place] # (Auto) Eos # (Auto) Baso # (Auto) Abs Immat Gran (auto) Absolute Neuts (auto) Absolute Nucleated RBC Nucleated RBC % (auto) Neutrophils % (Manual) Band Neutrophils % Lymphocytes % (Manual) Monocytes % (Manual) Abs Neuts (Manual) Lymphocytes # (Manual) Monocytes # (Manual) Platelet Estimate Plt Morphology Comment RBC Morphology Ovalocytes PT INR APTT Anion Gap Estim Creat Clear Calc Estimated GFR Random Glucose Calcium COVID-19 (TATIANNA) Negative COVID-19 Clin Com See Note Imaging Radiologist's Impressions: Impressions Hip X-Ray 10/22/21 10:09 IMPRESSION: Acute, mildly angulated right intertrochanteric fracture. Chest X-Ray 10/22/21 10:58 IMPRESSION: Hyperinflated lungs without acute process. Similar findings were seen on the previous CT chest 03/28/[address] 10/22/21 11:10 IMPRESSION: No acute cervical spine fracture. Loss of the usual cervical spine lordosis which may be due to positioning or muscle spasm. Interlobular septal thickening in the lung apices which may reflect a degree of pulmonary edema. Head CT 10/22/21 11:10 IMPRESSION: No acute intracranial pathology. Assessment and Plan (1) Closed intertrochanteric fracture: Qualifiers: Encounter type: initial encounter Fracture alignment: nondisplaced Laterality: right Qualified Code(s): S72.144A - Nondisplaced intertrochanteric fracture of right femur, initial encounter for closed fracture Status: Acute (2) Severe chronic obstructive pulmonary disease: Status: Acute Plan 56 year old male with end stage COPD, hepc, chronic venous stasis here with mechanical fall and right hip fracture 1/ Hip fracture for operative repair -At moderate to high risk given end stage COPD (respiratory status will optimize with bronchidilators and some steroid before surgery), there is no indication for cardiac testing at time. 2/COPD--end stage.. Give schedule and PRN and schudule Nebs and IV solumedrol to minimize risk of excerbation, at his baseline, should anything change will alert Pulmonology 3/ Chronic leg edame --continue lasix 4/ GERD--PPI 5/.? pseudohyperkalemia d/t hemolyzed specimen, repeat is normal at 4.7 6/ Opioid Dependence--Methadone DVT prophylaxis--To be determine after surgery but can be on compression device for now. Stay will span at least 2 midnight due to hip fracture hat will need repair within a day or 2 and post op care and likely will need rehab as well Quality Stroke Does the patient have a stroke diagnosis?: No VTE Prior VTE?: No VTE Risk Level:: Medical - moderate - high VTE Device Contraindication: N/A - Device Ordered VTE Drug Contraindication: Treatment Not Indicated
[2021-10-22] MEDS: Calcium Gluconate/NaCl,Iso-Osm 2 GM/100 ML PLAST..BAG IV (12:11)
[2021-10-22] MEDS: methADONE HCl 20 MG/2 ML ORAL.CONC 40 MG PO (12:11)
[2021-10-22 12:26] LABS: Potassium 4.7 mmol/L (3.3-5.1)
--- NOTE | 2021-10-22 12:31 | PC.NURSE ---
instructed to hold lokelma until potassium lab results back. Additionally, patient was given his dose of methadone, patient put both doses in water and spilt half of the water on himself. Spoke to Dr. Irene and he said he is not going to order any additional methadone for the patient.
--- NOTE | 2021-10-22 12:58 | PM.EVENT ---
Event Note Date of Service: 10/22/21 Event Note: 56 yo male with intertrochanteric fracture of the hip he is on 3L home O2 at baseline-being followed by Dr Lazo he was admitted to the medical service plan is to proceed with IMN 10/23/21 if cleared-keep npo after midnight type and screen
--- NOTE | 2021-10-22 14:09 | PHA.MEDREC ---
MED REC CMPLETE, NO ISSUES Pharmacy Consult ? Medication Reconciliation Pharmacy has completed the medication reconciliation.
[2021-10-22] MEDS: methylPREDNISolone Sod Succ 40 MG/ML VIAL 30 MG IVPUSH ×2 (14:35→22:44)
[2021-10-22] MEDS: Albuterol/Iprat 2.5/0.5MG 3 ML AMPUL.NEB INHALE ×2 (15:53→19:40)
[2021-10-22] MEDS: 0.9 % Sodium Chloride Flush 3 ML SYRINGE IVFLUSH (15:59)
[2021-10-22] MEDS: HYDROmorphone HCl 0.5 MG/0.5 ML SYRINGE IVPUSH (18:20)
--- NOTE | 2021-10-22 20:24 | PC.NURSE ---
late entry for 1999. Pt repositioned in bed, tolerated movement well following dilaudid. Pt remains fully dressed and refusing to undress. Also refuses to relenquish proair inhailers. States i won't use them, i just want to keep them nearby .
--- NOTE | 2021-10-22 20:25 | P.CONOP_ITS ---
History of Present Illness HPI Consult date: 10/22/21 Chief complaint: Hip Fracture Narrative: 56 yo male with PMH significant for CHF, end stage COPD on 3-4L home O2, Hep C who presented to the ED after sustaining a fall, which resulted in a hip fracture. The patient often rests while walking due to his SOB . He will rest standing up, leaning on things like a table, wall, etc. There are times he is resting and he falls asleep,which is how he fell today. He was unable to get up and ambulate due to the pain;therefore, he was transported to the ED via EMS. He does ambulate at baseline. He is on Methadone. History of Heroin use, unknown when last use was. Review of Systems Review of Systems: per [facility] Past Medical History Medical History (Updated 10/22/21 @ 11:57 by Nabor Irene MD) Erosive esophagitis HCV (hepatitis C virus) Latent tuberculosis Severe chronic obstructive pulmonary disease Family History Family History (Updated 10/22/21 @ 12:18 by Nabor Irene MD) Mother HTN (hypertension) Brother COPD (chronic obstructive pulmonary disease) Social History Social History Household Members: Family Housing: House Do you presently have visiting nurse or other home services: No Alcohol intake: former Patient Tobacco Use Status: Current someday Tobacco user Cigarettes Per Day: 10 Years Smoked: 30 yrs Substance Use Type: Heroin Advance Directives: No Advance Directives Information Provided: Yes service: No Current occupational status: unemployed Meds Allergies Allergy/AdvReac Type Severity Reaction Status Date / Time No Known Allergies Allergy Verified 02/13/21 14:54 Active Medications: Current Medications Acetaminophen (Acetaminophen 325 Mg Tablet) 650 mg PO Q6H PRN PRN Reason: Pain, Mild (Pain Scale 1-3) Albuterol/Ipratropium (Albuterol/Iprat 2.5/0.5mg 3 Ml Ampul.Neb) 3 ml INHALE RQ4H WHILE AWAKE LIBBY Last Admin: 10/22/21 19:40 Dose: 3 ml Documented by: Albuterol/Ipratropium (Albuterol/Iprat 2.5/0.5mg 3 Ml Ampul.Neb) 1.5 ml INHALE Q2H PRN PRN Reason: Shortness of Breath Hydromorphone HCl (Hydromorphone Hcl 0.5 Mg/0.5 Ml Syringe) 0.5 mg IVPUSH Q4H PRN; Protocol PRN Reason: Pain, Severe (Pain Scale 7-10) Last Admin: 10/22/21 18:20 Dose: 0.5 mg Documented by: Magnesium Hydroxide (Milk Of Magnesia 30 Ml Oral.Susp) 30 ml PO DAILY PRN PRN Reason: Constipation Melatonin (Melatonin 3 Mg Tablet) 6 mg PO BEDTIME PRN PRN Reason: Insomnia Methylprednisolone Sodium Succinate (Methylprednisolone Sod Succ 40 Mg/Ml Vial) 30 mg IVPUSH Q8H [facility] Last Admin: 10/22/21 14:35 Dose: 30 mg Documented by: Ondansetron HCl (Ondansetron Hcl 4 Mg/2 Ml Vial) 4 mg IVPUSH Q8H PRN PRN Reason: Nausea and Vomiting Sodium Chloride (0.9 % Sodium Chloride Flush 3 Ml Syringe) [facility] Last Admin: 10/22/21 15:59 Dose: 3 ml Documented by: Home Medications Medication Instructions Recorded Confirmed Last Taken Type pantoprazole 40 mg tablet,delayed 40 mg PO DAILY 03/29/20 10/22/21 Unknown History release umeclidinium 62.5 mcg-vilanterol 1 puff INHALATION DAILY 02/12/21 10/22/21 Unknown History 25 mcg/actuation powdr for inhalation (Anoro Ellipta) albuterol sulfate 1 amp INHALATION Q4H PRN 10/22/21 10/22/21 Unknown History albuterol sulfate 90 mcg/actuation 2 puff INHALATION Q6H PRN 10/22/21 10/22/21 Unknown History aerosol inhaler (ProAir HFA) Physical Exam Vital Signs: Vital Signs: Last Vital Signs Temp 98.5 F 10/22/21 17:57 Pulse 99 10/22/21 19:41 Resp 18 10/22/21 19:41 BP 153/87 H 10/22/21 18:18 Pulse Ox 92 10/22/21 18:18 Oxygen Flow Rate 5 10/22/21 08:45 BMI result Body Mass Index 20.9 Const: General: cooperative, comfortable, alert and awake Orientation/consciousness: patient oriented x3 Neuro: General: patient oriented x3 Extrem: Other: Right hip shortened and ER, pain with log roll and unable to SLR. There are no lacerations or open wounds but he does have venous stasis on bilat lower ex tremities. Results Labs Result Diagrams: 10/22/21 10:28 10/22/21 11:39 Labs: Abnormal lab results 10/22/21 10/22/21 10/22/21 Range/Units 10:28 10:28 10:28 WBC 4.0 L (4.8-10.8) X10*3/uL RBC 4.17 L (4.60-5.80) X10*6/uL Hgb 11.1 L (14.0-18.0) g/dl Hct 34.6 L (42.0-52.0) % MCH 26.6 L (27.0-33.0) pg Plt Count 50 L (160-400) X10*3/uL MPV 9.1 L (9.4-12.4) fL Neutrophils % (Manual) 79 H (45-73) % Band Neutrophils % 2 L (3-5) % Lymphocytes % (Manual) 5 L (20-40) % Monocytes % (Manual) 14 H (2-11) % Lymphocytes # (Manual) 0.2 L (1.2-4.9) X10*3/uL PT 13.8 H (9.9-13.0) SEC INR 1.2 H (0.9-1.1) APTT 47.7 H (24.1-38.0) SEC Potassium 6.0 H* D (3.3-5.1) mmol/L Chloride 95 L (96-108) mmol/L Carbon Dioxide 31 H (22-29) mmol/L BUN 19 H (9-16) mg/dL Random Glucose 120 H (60-115) mg/dL H & H 10/22/21 Range/Units 10:28 Hgb 11.1 L (14.0-18.0) g/dl Hct 34.6 L (42.0-52.0) % Coagulation 10/22/21 Range/Units 10:28 INR 1.2 H (0.9-1.1) All other labs normal. Diagnostic results Hip x-ray: image reviewed (Acute, mildly angulated right intertrochanteric fracture.) Assessment and Plan (1) Closed intertrochanteric fracture: Qualifiers: Encounter type: initial encounter Fracture alignment: nondisplaced Laterality: right Qualified Code(s): S72.144A - Nondisplaced intertrochanteric fracture of right femur, initial encounter for closed fracture Status: Acute Plan I discussed the case with Dr Arroyo and explained the extent of the injury to the patient and options available which include surgical intervention. I explained the procedure in detail along with the length of recovery and rehab course. I explained the risk, benefits and alternatives. Risk including, but not limited to infection, blood clots, bleeding, non union or malunion and nerve/tissue damage to surrounding areas. I answered all their questions and with their understanding they have consented to move forward with Operative Fixation of the right hip . The patient will be T&S, med clearance obtained and NPO after midnight. Dr Newton was also notified about the patient who recommended we order Platelets to be infused pre-op 10/23/21 @0900am Procedures Date of Service Date of Service: 10/22/21
[2021-10-23] VITALS (14 sets, daily range): BP systolic 125–147; BP diastolic 80–89; PULSE 86–120; RESP 15–96; TEMP 35.8–37.6; O2SAT 18–98; BMI 20.9
[2021-10-23] MEDS: 0.9 % Sodium Chloride Flush 3 ML SYRINGE IVFLUSH ×2 (00:14→18:20)
[2021-10-23] MEDS: HYDROmorphone HCl 0.5 MG/0.5 ML SYRINGE IVPUSH ×5 (01:27→20:29)
--- NOTE | 2021-10-23 03:10 | PC.NURSE ---
I assumed care of Arnaud at 2300. Since that time he has been mostly sleeping, wakes to verbal stimuli at which time he is alert and oriented x 3. He makes eye contact with Rn, is calm and cooperative, flat affect. He denies SI/HI. Respirations non-labored, RR WNL, room air sat's 95% or better. He is taking PO fluids without difficulty. No nausea, no vomiting. Skin pale/warm/dry. Arnaud is aware that he is TBADM and verbalizes an understanding of this.
[2021-10-23 06:39] LABS: MANUAL DIFF FLAG NO
[2021-10-23 06:51] LABS: Hematocrit 34.3 % (42.0-52.0); Hemoglobin 11.2 g/dl (14.0-18.0); Imm Gran Abs Auto 0.01 X10*3/uL (0.00-0.03); Imm Gran Pct Auto 0.4 % (0.0-0.4); Lymphocytes Absolute Auto 0.3 X10*3/uL (1.2-4.9); Lymphocytes Percent Auto 10.3 % (20-40); Mean Corpuscular HGB Conc 32.7 g/dl (31.0-36.0); Mean Corpuscular Hemoglobin 26.1 pg (27.0-33.0); Monocytes Absolute Auto 0.2 X10*3/uL (0.1-1.2); Monocytes Percent Auto 8.5 % (2-11); Neutrophils Absolute Auto 2.2 x10*3/uL (2.0-8.3); Neutrophils Percent Auto 80.8 % (45-73); Red Blood Count 4.29 X10*6/uL (4.60-5.80); Red Cell Distribution Width 14.6 % (11.0-16.0); White Blood Count 2.7 X10*3/uL (4.8-10.8)
[2021-10-23 07:09] LABS: Anion Gap 13 (12-20); Blood Urea Nitrogen 21 mg/dL (9-16); Calcium 8.9 mg/dL (8.4-10.2); Carbon Dioxide 34 mmol/L (22-29); Chloride 91 mmol/L (96-108); Creatinine Clr Calc Pharmacy 110.4; Estimated Glomerular Filt Rate > 60; Glucose Random 114 mg/dL (60-115); Potassium 4.4 mmol/L (3.3-5.1); Sodium 134 mmol/L (135-145)
[2021-10-23] MEDS: Albuterol/Iprat 2.5/0.5MG 3 ML AMPUL.NEB INHALE ×2 (07:17→15:23)
[2021-10-23] MEDS: methylPREDNISolone Sod Succ 40 MG/ML VIAL 30 MG IVPUSH ×3 (07:18→21:40)
[2021-10-23 07:20] LABS: Platelet Count 58 X10*3/uL (160-400)
--- NOTE | 2021-10-23 07:39 | PM.EVENT ---
Event Note Date of Service: 10/23/21 Event Note: Spoke with Kwame Monaco at 5:50am: halina did not arrive yet, non at [facility], will call [facility] to obtain Spoke with Juan at blood bank at 7:40am-lucie is in route to obtain platelets spoke with Janette in ED at 7:42am: Explained lucie is going to get platelets and he needs to begin infusion at 0900 for 1000 surgery. --she expressed understanding and mentioned she would pass message along as he was about to be transferred to ED overflow. --she was told the blood bank will notify her when the platelets are received and understood transfusion to begin at 0900.
--- NOTE | 2021-10-23 09:47 | P.PNIM_ITS ---
Subjective Subjective Date of Service: 10/23/21 Interval History: Seen in f/u for hip fracture, underlying severe LINE SERVER Itnerval history: respiratory status is stable, pain is controlled, his getting FFPs Review of Systems Gen: no fever Resp: no sob, no cough CV: no chest, no [place], no leg edema GI: No n/v, no abd pain Neuro: No confusion Hip pain with movement Physical Exam Vital Signs: Vital Signs: Last Vital Signs Temp 98.8 F 10/23/21 08:34 Pulse 107 H 10/23/21 08:34 Resp 18 10/23/21 08:34 BP 147/80 H 10/23/21 08:34 Pulse Ox 93 10/23/21 06:03 Oxygen Flow Rate 5 10/22/21 08:45 BMI result Body Mass Index 20.9 Const: Other: General: AO X 3, no acute distress Resp: CTA bilateral, no wheezes, no accesory muscle use CVS: S1,S2,RRR GI: +BS, NT, no distention Skin: No rash Neuro: motor grossly intact Psych: appropriate affect Objective Data Active Medications Acetaminophen (Acetaminophen 325 Mg Tablet) 650 mg PO Q6H PRN PRN Reason: Pain, Mild (Pain Scale 1-3) Albuterol/Ipratropium (Albuterol/Iprat 2.5/0.5mg 3 Ml Ampul.Neb) 3 ml INHALE RQ4H WHILE AWAKE LIBBY Last Admin: 10/23/21 07:17 Dose: 3 ml Documented by: ROSALIA Albuterol/Ipratropium (Albuterol/Iprat 2.5/0.5mg 3 Ml Ampul.Neb) 1.5 ml INHALE Q2H PRN PRN Reason: Shortness of Breath Hydromorphone HCl (Hydromorphone Hcl 0.5 Mg/0.5 Ml Syringe) 0.5 mg IVPUSH Q4H PRN; Protocol PRN Reason: Pain, Severe (Pain Scale 7-10) Last Admin: 10/23/21 05:15 Dose: 0.5 mg Documented by: IRVING Magnesium Hydroxide (Milk Of Magnesia 30 Ml Oral.Susp) 30 ml PO DAILY PRN PRN Reason: Constipation Melatonin (Melatonin 3 Mg Tablet) 6 mg PO BEDTIME PRN PRN Reason: Insomnia Methylprednisolone Sodium Succinate (Methylprednisolone Sod Succ 40 Mg/Ml Vial) 30 mg IVPUSH Q8H [facility] Last Admin: 10/23/21 07:18 Dose: 30 mg Documented by: IRVING Ondansetron HCl (Ondansetron Hcl 4 Mg/2 Ml Vial) 4 mg IVPUSH Q8H PRN PRN Reason: Nausea and Vomiting Sodium Chloride (0.9 % Sodium Chloride Flush 3 Ml Syringe) 3 ml IVFLUSH QSHIFT [facility] Last Admin: 10/23/21 06:57 Dose: Not Given Documented by: KANWAL Non-Admin Reason: Med Not Available Labs CBC & Chem 7: 10/23/21 06:13 10/23/21 06:13 Labs: Laboratory Results - last 24 hr 10/22/21 10/22/21 10/22/21 10:28 10:28 10:28 MCV 83.0 MCH 26.6 L MCHC 32.1 RDW 15.6 Plt Count 50 L MPV 9.1 L Immature Gran % (Auto) Cancelled Neut % (Auto) Cancelled Lymph % (Auto) Cancelled [place] % (Auto) Cancelled Eos % (Auto) Cancelled Baso % (Auto) Cancelled Lymph # (Auto) Cancelled [place] # (Auto) Cancelled Eos # (Auto) Cancelled Baso # (Auto) Cancelled Abs Immat Gran (auto) Cancelled Absolute Neuts (auto) Cancelled Absolute Nucleated RBC 0.000 Nucleated RBC % (auto) 0.0 Neutrophils % (Manual) 79 H Band Neutrophils % 2 L Lymphocytes % (Manual) 5 L Monocytes % (Manual) 14 H Abs Neuts (Manual) 3.2 Lymphocytes # (Manual) 0.2 L Monocytes # (Manual) 0.6 Platelet Estimate DECREASED Plt Morphology Comment NORMAL RBC Morphology NOTED Ovalocytes 1+ (5-14) PT 13.8 H INR 1.2 H APTT 47.7 H Anion Gap 17 Estim Creat Clear Calc 99.4 Estimated GFR > 60 Random Glucose 120 H Calcium 9.0 COVID-19 (TATIANNA) COVID-19 Clin Com Blood Type Antibody Screen 10/22/21 10/22/21 10/23/21 10:28 18:45 06:13 MCV 80.0 MCH 26.1 L MCHC 32.7 RDW 14.6 Plt Count 58 L MPV 9.0 L Immature Gran % (Auto) 0.4 Neut % (Auto) 80.8 H Lymph % (Auto) 10.3 L [place] % (Auto) 8.5 Eos % (Auto) 0.0 Baso % (Auto) 0.0 Lymph # (Auto) 0.3 L [place] # (Auto) 0.2 Eos # (Auto) 0.0 Baso # (Auto) 0.0 Abs Immat Gran (auto) 0.01 Absolute Neuts (auto) 2.2 Absolute Nucleated RBC 0.000 Nucleated RBC % (auto) 0.0 Neutrophils % (Manual) Band Neutrophils % Lymphocytes % (Manual) Monocytes % (Manual) Abs Neuts (Manual) Lymphocytes # (Manual) Monocytes # (Manual) Platelet Estimate Plt Morphology Comment RBC Morphology Ovalocytes PT INR APTT Anion Gap Estim Creat Clear Calc Estimated GFR Random Glucose Calcium COVID-19 (TATIANNA) Negative COVID-19 [employer] Com See Note Blood Type O Positive Antibody Screen NEGATIVE 10/23/21 06:13 MCV MCH MCHC RDW Plt Count MPV Immature Gran % (Auto) Neut % (Auto) Lymph % (Auto) [place] % (Auto) Eos % (Auto) Baso % (Auto) Lymph # (Auto) [place] # (Auto) Eos # (Auto) Baso # (Auto) Abs Immat Gran (auto) Absolute Neuts (auto) Absolute Nucleated RBC Nucleated RBC % (auto) Neutrophils % (Manual) Band Neutrophils % Lymphocytes % (Manual) Monocytes % (Manual) Abs Neuts (Manual) Lymphocytes # (Manual) Monocytes # (Manual) Platelet Estimate Plt Morphology Comment RBC Morphology Ovalocytes PT INR APTT Anion Gap 13 Estim Creat Clear Calc 110.4 Estimated GFR > 60 Random Glucose 114 Calcium 8.9 COVID-19 (TATIANNA) COVID-19 Clin Com Blood Type Antibody Screen Assessment and Plan (1) Severe chronic obstructive pulmonary disease: Status: Acute (2) Closed intertrochanteric fracture: Status: Acute Plan 56 year old male with end stage COPD, hepc, chronic venous stasis here with mechanical fall and right hip fracture 1/ Right Hip fracture for operative repair -At moderate to high risk given end stage COPD (respiratory status will optimize with bronchidilators and some steroid before surgery), there is no indication for cardiac testing at time. 2/COPD--end stage.. Give schedule and PRN and schudule Nebs and IV solumedrol to minimize risk of excerbation, at his baseline, should anything change will alert Pulmonology a 3/ Chronic leg edame --continue lasix 4/ GERD--PPI 5/.? pseudohyperkalemia d/t hemolyzed specimen, repeat is normal was normal 6/ Opioid Dependence--Methadone 7/Hep C, mild inrease in INR, possible underlying coagulopathy--getting FFP before surgery DVT prophylaxis--To be determine after surgery but can be on compression device for now. Stay will span at least 2 midnight due to hip fracture hat will need repair within a day or 2 and post op care and likely will need rehab as well Quality Stroke Does the patient have a stroke diagnosis?: No VTE Prior VTE?: No VTE Risk Level:: Medical - moderate - high VTE Device Contraindication: N/A - Device Ordered VTE Drug Contraindication: Treatment Not Indicated
--- NOTE | 2021-10-23 09:52 | HO.ANESPROP2 ---
HPI - Anesthesia Eval Consult details Narrative: mechanical fall: right femur fracture PMFSH Active Problems Active Problems: All Active Problems (Updated 10/22/21 @ 11:57 by Nabor Irene MD) Severe chronic obstructive pulmonary disease (Acute) Acute hip pain (Acute) Closed intertrochanteric fracture (Acute) HCV (hepatitis C virus) (Acute) Pulmonary nodules (Acute) Supplemental oxygen dependent (Acute) Past Medical History Medical History (Updated 10/22/21 @ 11:57 by Nabor Irene MD) Erosive esophagitis HCV (hepatitis C virus) Latent tuberculosis Severe chronic obstructive pulmonary disease Family History Family History (Updated 10/22/21 @ 12:18 by Nabor Irene MD) Mother HTN (hypertension) Brother COPD (chronic obstructive pulmonary disease) Family history of problems with anesthesia: No Surgical History History of Problems with Anesthesia: No Social History Social History Household Members: Family Housing: House Do you presently have visiting nurse or other home services: No Alcohol intake: former Patient Tobacco Use Status: Current someday Tobacco user Cigarettes Per Day: 10 Years Smoked: 30 yrs Substance Use Type: Heroin service: No Current occupational status: unemployed Meds Allergies Allergy/AdvReac Type Severity Reaction Status Date / Time No Known Allergies Allergy Verified 02/13/21 14:54 Active Medications: Current Medications Acetaminophen (Acetaminophen 325 Mg Tablet) 650 mg PO Q6H PRN PRN Reason: Pain, Mild (Pain Scale 1-3) Albuterol/Ipratropium (Albuterol/Iprat 2.5/0.5mg 3 Ml Ampul.Neb) 3 ml INHALE RQ4H WHILE AWAKE LIBBY Last Admin: 10/23/21 07:17 Dose: 3 ml Documented by: Albuterol/Ipratropium (Albuterol/Iprat 2.5/0.5mg 3 Ml Ampul.Neb) 1.5 ml INHALE Q2H PRN PRN Reason: Shortness of Breath Hydromorphone HCl (Hydromorphone Hcl 0.5 Mg/0.5 Ml Syringe) 0.5 mg IVPUSH Q4H PRN; Protocol PRN Reason: Pain, Severe (Pain Scale 7-10) Last Admin: 10/23/21 09:51 Dose: 0.5 mg Documented by: Magnesium Hydroxide (Milk Of Magnesia 30 Ml Oral.Susp) 30 ml PO DAILY PRN PRN Reason: Constipation Melatonin (Melatonin 3 Mg Tablet) 6 mg PO BEDTIME PRN PRN Reason: Insomnia Methylprednisolone Sodium Succinate (Methylprednisolone Sod Succ 40 Mg/Ml Vial) 30 mg IVPUSH Q8H [facility] Last Admin: 10/23/21 07:18 Dose: 30 mg Documented by: Ondansetron HCl (Ondansetron Hcl 4 Mg/2 Ml Vial) 4 mg IVPUSH Q8H PRN PRN Reason: Nausea and Vomiting Sodium Chloride (0.9 % Sodium Chloride Flush 3 Ml Syringe) 3 ml IVFLUSH QSHIFT [facility] Last Admin: 10/23/21 06:57 Dose: Not Given Documented by: Home Medications Medication Instructions Recorded Confirmed Last Taken Type pantoprazole 40 mg tablet,delayed 40 mg PO DAILY 03/29/20 10/22/21 Unknown History release umeclidinium 62.5 mcg-vilanterol 1 puff INHALATION DAILY 02/12/21 10/22/21 Unknown History 25 mcg/actuation powdr for inhalation (Anoro Ellipta) albuterol sulfate 1 amp INHALATION Q4H PRN 10/22/21 10/22/21 Unknown History albuterol sulfate 90 mcg/actuation 2 puff INHALATION Q6H PRN 10/22/21 10/22/21 Unknown History aerosol inhaler (ProAir HFA) Exam Exam Date and Time: October 23, 2021 0952 Height,Weight and Vital Signs: Height 5 ft 6 in Weight 58.967 kg Last Vital Signs Temp 98.8 F 10/23/21 08:34 Pulse 107 H 10/23/21 08:34 Resp 18 10/23/21 08:34 BP 147/80 H 10/23/21 08:34 Pulse Ox 93 10/23/21 06:03 Oxygen Flow Rate 5 10/22/21 08:45 Pertinent Lab Results Pertinent Lab Results: Laboratory Tests 10/22/21 10/22/21 10/22/21 10:28 10:28 10:28 WBC 4.0 L RBC 4.17 L Hgb 11.1 L Hct 34.6 L MCV 83.0 MCH 26.6 L MCHC 32.1 RDW 15.6 Plt Count 50 L MPV 9.1 L Immature Gran % (Auto) Cancelled Neut % (Auto) Cancelled Lymph % (Auto) Cancelled [place] % (Auto) Cancelled Eos % (Auto) Cancelled Baso % (Auto) Cancelled Lymph # (Auto) Cancelled [place] # (Auto) Cancelled Eos # (Auto) Cancelled Baso # (Auto) Cancelled Abs Immat Gran (auto) Cancelled Absolute Neuts (auto) Cancelled Absolute Nucleated RBC 0.000 Nucleated RBC % (auto) 0.0 Neutrophils % (Manual) 79 H Band Neutrophils % 2 L Lymphocytes % (Manual) 5 L Monocytes % (Manual) 14 H Abs Neuts (Manual) 3.2 Lymphocytes # (Manual) 0.2 L Monocytes # (Manual) 0.6 Platelet Estimate DECREASED Plt Morphology Comment NORMAL RBC Morphology NOTED Ovalocytes 1+ (5-14) PT 13.8 H INR 1.2 H APTT 47.7 H Sodium 137 Potassium 6.0 H* D Chloride 95 L Carbon Dioxide 31 H Anion Gap 17 BUN 19 H Creatinine 0.70 Estim Creat Clear Calc 99.4 Estimated GFR > 60 Random Glucose 120 H Calcium 9.0 COVID-19 (TATIANNA) COVID-19 Clin Com Blood Type Antibody Screen 10/22/21 10/22/21 10/22/21 10:28 11:39 18:45 WBC RBC Hgb Hct MCV MCH MCHC RDW Plt Count MPV Immature Gran % (Auto) Neut % (Auto) Lymph % (Auto) [place] % (Auto) Eos % (Auto) Baso % (Auto) Lymph # (Auto) [place] # (Auto) Eos # (Auto) Baso # (Auto) Abs Immat Gran (auto) Absolute Neuts (auto) Absolute Nucleated RBC Nucleated RBC % (auto) Neutrophils % (Manual) Band Neutrophils % Lymphocytes % (Manual) Monocytes % (Manual) Abs Neuts (Manual) Lymphocytes # (Manual) Monocytes # (Manual) Platelet Estimate Plt Morphology Comment RBC Morphology Ovalocytes PT INR APTT Sodium Potassium 4.7 D Chloride Carbon Dioxide Anion Gap BUN Creatinine Estim Creat Clear Calc Estimated GFR Random Glucose Calcium COVID-19 (TATIANNA) Negative COVID-19 Clin Com See Note Blood Type O Positive Antibody Screen NEGATIVE 10/23/21 10/23/21 06:13 06:13 WBC 2.7 L RBC 4.29 L Hgb 11.2 L Hct 34.3 L MCV 80.0 MCH 26.1 L MCHC 32.7 RDW 14.6 Plt Count 58 L MPV 9.0 L Immature Gran % (Auto) 0.4 Neut % (Auto) 80.8 H Lymph % (Auto) 10.3 L [place] % (Auto) 8.5 Eos % (Auto) 0.0 Baso % (Auto) 0.0 Lymph # (Auto) 0.3 L [place] # (Auto) 0.2 Eos # (Auto) 0.0 Baso # (Auto) 0.0 Abs Immat Gran (auto) 0.01 Absolute Neuts (auto) 2.2 Absolute Nucleated RBC 0.000 Nucleated RBC % (auto) 0.0 Neutrophils % (Manual) Band Neutrophils % Lymphocytes % (Manual) Monocytes % (Manual) Abs Neuts (Manual) Lymphocytes # (Manual) Monocytes # (Manual) Platelet Estimate Plt Morphology Comment RBC Morphology Ovalocytes PT INR APTT Sodium 134 L Potassium 4.4 Chloride 91 L Carbon Dioxide 34 H Anion Gap 13 BUN 21 H Creatinine 0.63 Estim Creat Clear Calc 110.4 Estimated GFR > 60 Random Glucose 114 Calcium 8.9 COVID-19 (TATIANNA) COVID-19 Clin Com Blood Type Antibody Screen Airway Mallampati Class: II TM Dist: >3cm Neck ROM: Full Loose/Missing/Broken Teeth: Yes Heart: RRR Lungs: bilateral wheezing, diminished breathing sounds, mild tachypnea Assessment and Plan Assessment Anesthesia Assessment: Anesthesia Plan Discussed and Chart Reviewed Final Anesthetic Review Family History of Problems with Anesthesia: No History of Problems with Anesthesia: No NPO: Yes ASA Class: IV and Emergency Final Preanesthetic Review: No Changes in Pt Med Stat, Meds/Allgs Chart Reviewed, Consent Obtained/Reviewed and Anes Risks/Benef Reviewed Patient Risk: High Procedure Risk: Intermediate Anesthetic Plan Anesthetic Plan: Spinal Disposition: Standard PACU
--- NOTE | 2021-10-23 10:13 | MHC.SHP ---
Pre-Procedural Eval Section A Date of Service: 10/23/21 The patient is an INPATIENT: Yes Changes since office visit: Yes Patient answered all questions; No Cold of Flu in the past 2 weeks, No New Medical Problems and No Changes in Medication The History & Physical has been completed within 30 days and I have reviewed it.: Yes Section B Chief Complaint: Hip Fracture Allergies: Allergies Allergy/AdvReac Type Severity Reaction Status Date / Time No Known Allergies Allergy Verified 02/13/21 14:54 Plan I have reviewed the history and physical and performed a pertinent physical examination on my patient. No changes have occurred unless specified.
--- NOTE | 2021-10-23 11:25 | P.BOP_ITS ---
Brief Operative Note Date of Service: 10/23/21 Pre-op diagnosis: Right hip intertrochanteric fracture Post-op diagnosis: same Procedure: Right hip cepahlomedullary nail Implants: [place] [id number] 130deg with 100 mm hip screw and 35 mm distal interlock Surgeon: Herberth Arroyo MD Anesthesia: spinal Was an Computer Numerical Control Machinist used for this Procedure?: No Estimated blood loss (mL): 150 IV fluids (mL): 800 Pathology: none sent Condition: stable Disposition: PACU
[2021-10-23 12:18] LABS: Hematocrit 34.5 % (42.0-52.0); Hemoglobin 11.5 g/dl (14.0-18.0); Mean Corpuscular HGB Conc 33.3 g/dl (31.0-36.0); Mean Corpuscular Hemoglobin 26.7 pg (27.0-33.0); Mean Platelet Volume 9.4 fL (9.4-12.4); Red Blood Count 4.31 X10*6/uL (4.60-5.80); Red Cell Distribution Width 14.6 % (11.0-16.0); White Blood Count 5.3 X10*3/uL (4.8-10.8)
[2021-10-23 12:23] LABS: Platelet Count 82 X10*3/uL (160-400)
[2021-10-23] MEDS: methADONE HCl 20 MG/2 ML ORAL.CONC 39 MG PO (14:37)
--- NOTE | 2021-10-23 14:49 | MHC.CM.PN ---
EMR REVIEWED, PT ADMITTED W/HIP FX AND REPAIR ON 10/23, PT RPEORTS HE USES A CAN AT HOME AND HAS A W/C HOWEVER RARELY USES IT, PT REPORTS HE HAS METHADONE FROM [facility] AND HAS A VNA FOR HOME DELIVERY HOWEVER DOES NOT RECALL THE NAME OF VNA, THIS CM ATTEMPTED TO CONTACT [facility] HOWEVER METHADONE CLINIC CLOSED AND CM COULD NOT REACH CM CONTACT, WILL HAVE TO FOLLOW-UP SUNDAY, PT GAVE VERBAL PERMISSION TO ASK [facility] IF NEEDED. PT IS AGREEABLE TO AND STR, D/T METHADONE AND COVID UNVACCINATED STATUS CHOICES ARE LIMITED AND PT IS AWARE, REFERRALS PLACED TO LOCAL SNF'S THAT TAKE PT'S W/METHADONE AND ALL 3 LOCAL ACUTE REHABS. PT USES [facility]IC [phone].
[2021-10-23] MEDS: Acetaminophen 325 MG TABLET 650 MG PO (18:18)
[2021-10-24] VITALS (17 sets, daily range): BP systolic 107–127; BP diastolic 68–81; PULSE 96–110; RESP 16–24; TEMP 36.1–37.9; O2SAT 86–98
[2021-10-24] MEDS: 0.9 % Sodium Chloride Flush 3 ML SYRINGE IVFLUSH ×4 (00:17→23:46)
[2021-10-24] MEDS: HYDROmorphone HCl 0.5 MG/0.5 ML SYRINGE IVPUSH ×5 (00:31→17:27)
[2021-10-24] MEDS: methylPREDNISolone Sod Succ 40 MG/ML VIAL 30 MG IVPUSH ×3 (06:06→21:19)
[2021-10-24] MEDS: Albuterol/Iprat 2.5/0.5MG 3 ML AMPUL.NEB INHALE ×3 (07:47→19:56)
--- NOTE | 2021-10-24 08:01 | P.PNOP_ITS ---
Subjective Subjective Date of Service: 10/24/21 Interval history: Postop day 1 status post right hip IM nail No overnight events Currently receiving a breathing treatment States his pain is tolerable Physical Exam Vital Signs: Vital Signs: Last Vital Signs Temp 98 F 10/24/21 06:46 Pulse 101 H 10/24/21 07:48 Resp 24 H 10/24/21 07:48 BP 118/73 10/24/21 06:46 Pulse Ox 90 L 10/24/21 06:46 Oxygen Flow Rate 5 10/22/21 08:45 BMI result Body Mass Index 20.9 Const: General: cooperative, healthy appearing and no acute distress Resp: Effort & Inspection: normal respiratory effort and able to speak in complete sentences Cardio: Rate: regular rate Peripheral pulses: Peripheral pulses 2+ throughout GI: Palpation (GI): Soft to palpation Skin: General skin exam: no rashes or lesions noted Extrem: Other: bandage clean dry and intact. Marybel intact. No erythema or effusion. Calf supple nontender. Neurovascularly intact. Procedures Date of Service Date of Service: 10/24/21 Progress Note: A&P Assessment and plan (1) Closed intertrochanteric fracture: Status: Acute Assessment and Plan: * Continue pain mgmnt * Begin Lovenox for dvt ppx * begin PT /OT for LT hip IMN-wbat * Dispo planning-Pending PT eval, pain mgmnt Time Spent With Patient Time: Total time spent is greater than 50% in coordination of care (as documented) at patient's floor/unit and/or counseling patient: Quality Stroke Does the patient have a stroke diagnosis?: No VTE Prior VTE?: No VTE Risk Level:: Medical - moderate - high VTE Device Contraindication: N/A - Device Ordered VTE Drug Contraindication: Treatment Not Indicated
[2021-10-24] MEDS: methADONE HCl 20 MG/2 ML ORAL.CONC 39 MG PO (08:36)
[2021-10-24 09:22] LABS: Hematocrit 31.8 % (42.0-52.0); Hemoglobin 10.6 g/dl (14.0-18.0); Mean Corpuscular HGB Conc 33.3 g/dl (31.0-36.0); Mean Corpuscular Hemoglobin 26.1 pg (27.0-33.0); Mean Corpuscular Volume 78.3 fL (80.0-98.0); Platelet Count 133 X10*3/uL (160-400); Red Blood Count 4.06 X10*6/uL (4.60-5.80); Red Cell Distribution Width 14.7 % (11.0-16.0); White Blood Count 8.4 X10*3/uL (4.8-10.8)
[2021-10-24 09:23] LABS: Anion Gap 14 (12-20); Blood Urea Nitrogen 29 mg/dL (9-16); Calcium 8.9 mg/dL (8.4-10.2); Carbon Dioxide 34 mmol/L (22-29); Chloride 91 mmol/L (96-108); Estimated Glomerular Filt Rate > 60; Glucose Random 123 mg/dL (60-115); Sodium 135 mmol/L (135-145)
--- NOTE | 2021-10-24 09:34 | P.PNIM_ITS ---
Subjective Subjective Date of Service: 10/24/21 Interval History: f/u on hip fracture s/p repair on 10/23 interim history: Feels better, no shortness of breath, pain is controlled. Review of Systems some pain in the hip No shortness of breath breathing is comfortable Physical Exam Vital Signs: Vital Signs: Last Vital Signs Temp 98 F 10/24/21 06:46 Pulse 101 H 10/24/21 07:48 Resp 24 H 10/24/21 07:48 BP 118/73 10/24/21 06:46 Pulse Ox 90 L 10/24/21 06:46 Oxygen Flow Rate 5 10/22/21 08:45 BMI result Body Mass Index 20.9 Const: Other: General: AO X 3, no acute distress Resp: CTA bilateral CVS: S1,S2,RRR GI: +BS, NT, no distention Skin: No rash, surgery site is dry/clean and intact Neuro: motor grossly intact Psych: appropriate affect Objective Data Active Medications Acetaminophen (Acetaminophen 325 Mg Tablet) 650 mg PO Q6H PRN PRN Reason: Pain, Mild (Pain Scale 1-3) Last Admin: 10/23/21 18:18 Dose: 650 mg Documented by: NICOLE Albuterol Sulfate (Albuterol Sulfate (0.083%) 2.5 Mg/3 Ml Vial.Neb) 2.5 mg INHALE ONCE PRN PRN Reason: Wheezing Albuterol/Ipratropium (Albuterol/Iprat 2.5/0.5mg 3 Ml Ampul.Neb) 3 ml INHALE RQ4H WHILE AWAKE LIBBY Last Admin: 10/24/21 07:47 Dose: 3 ml Documented by: PERLA Albuterol/Ipratropium (Albuterol/Iprat 2.5/0.5mg 3 Ml Ampul.Neb) 1.5 ml INHALE Q2H PRN PRN Reason: Shortness of Breath Fentanyl (Fentanyl Citrate/Pf 100 Mcg/2 Ml Vial) 50 mcg IVPUSH Q5M PRN; Protocol PRN Reason: Pain, Severe (Pain Scale 7-10) Hydromorphone HCl (Hydromorphone Hcl 0.5 Mg/0.5 Ml Syringe) 0.5 mg IVPUSH Q4H PRN; Protocol PRN Reason: Pain, Severe (Pain Scale 7-10) Last Admin: 10/24/21 08:36 Dose: 0.5 mg Documented by: FUNMILAYO Hydromorphone HCl (Hydromorphone Hcl 0.5 Mg/0.5 Ml Syringe) 0.5 mg IVPUSH Q5M PRN; Protocol PRN Reason: Pain, Severe (Pain Scale 7-10) Cefazolin Sodium/Dextrose (Ancef) 2 gm in 50 mls @ 100 mls/hr IV POSTOP [facility] Magnesium Hydroxide (Milk Of Magnesia 30 Ml Oral.Susp) 30 ml PO DAILY PRN PRN Reason: Constipation Melatonin (Melatonin 3 Mg Tablet) 6 mg PO BEDTIME PRN PRN Reason: Insomnia Methadone HCl (Methadone Hcl 20 Mg/2 Ml Oral.Conc) 39 mg PO DAILY [facility] Last Admin: 10/24/21 08:36 Dose: 39 mg Documented by: FUNMILAYO Methylprednisolone Sodium Succinate (Methylprednisolone Sod Succ 40 Mg/Ml Vial) 30 mg IVPUSH Q8H [facility] Last Admin: 10/24/21 06:06 Dose: 30 mg Documented by: HAIDER Ondansetron HCl (Ondansetron Hcl 4 Mg/2 Ml Vial) 4 mg IVPUSH Q8H PRN PRN Reason: Nausea and Vomiting Ondansetron HCl (Ondansetron Hcl 4 Mg/2 Ml Vial) 4 mg IVPUSH ONCE PRN PRN Reason: Nausea and Vomiting Sodium Chloride (0.9 % Sodium Chloride Flush 3 Ml Syringe) 3 ml IVFLUSH QSHIFT [facility] Last Admin: 10/24/21 08:37 Dose: 3 ml Documented by: FUNMILAYO Labs CBC & Chem 7: 10/24/21 08:12 10/24/21 08:12 Labs: Laboratory Results - last 24 hr 10/22/21 10/23/21 10/24/21 18:45 12:02 08:12 MCV 80.0 78.3 L MCH 26.7 L 26.1 L MCHC 33.3 33.3 RDW 14.6 14.7 Plt Count 82 L D 133 L D MPV 9.4 9.0 L Absolute Nucleated RBC 0.000 0.000 Nucleated RBC % (auto) 0.0 0.0 Anion Gap Estim Creat Clear Calc Estimated GFR Random Glucose Calcium Blood Type O Positive Antibody Screen NEGATIVE 10/24/21 08:12 MCV MCH MCHC RDW Plt Count MPV Absolute Nucleated RBC Nucleated RBC % (auto) Anion Gap 14 Estim Creat Clear Calc 98.0 Estimated GFR > 60 Random Glucose 123 H Calcium 8.9 Blood Type Antibody Screen Assessment and Plan (1) Severe chronic obstructive pulmonary disease: Status: Acute (2) Closed intertrochanteric fracture: Status: Acute Plan 56 year old male with end stage COPD, hepc, chronic venous stasis here with mechanical fall and right hip fracture 1/ Right Hip fracture s/p operative repair on 10/23 -continue postoperative care -pain control and DVT prophylaxis as deemed appropriate by the Orthopedic surgery. 2/COPD--end stage.. More oxygen need following surgery, Give schedule and PRN and schudule, IV steroid for exacerbation 3/ Chronic leg edame --continue lasix 4/ GERD--PPI 5/.? pseudohyperkalemia d/t hemolyzed specimen, repeat is normal was normal 6/ Opioid Dependence--Methadone 7/Hep C, mild inrease in INR, possible underlying coagulopathy--getting FFP before surgery DVT prophylaxis--To be determine after surgery but can be on compression device for now. admission for post op care, hypoxia Quality Stroke Does the patient have a stroke diagnosis?: No VTE Prior VTE?: No VTE Risk Level:: Medical - moderate - high VTE Device Contraindication: N/A - Device Ordered VTE Drug Contraindication: Treatment Not Indicated
--- NOTE | 2021-10-24 11:03 | P.CONPL_ITS ---
History of Present Illness History of Present Illness Consult date: 10/24/21 Requesting physician: Nabor Irene Chief complaint: Hip Fracture Narrative: 56-year-old gentleman with underlying severe COPD on 2-4 L, also hep C, admitted on 10/22/2021 with mechanical fall resulting the right hip fracture, now status post ORIF with hospital course complicated by worsening hypoxemia. Patient denies cough or sputum production. He does not have significant orthopnea lower extremity edema. Now his requiring supplemental oxygen at 8-9 L to maintain O2 saturation above 90%. Review of Systems Constitutional: Constitutional: Denies daytime sleepiness, Denies excessive sweating, Denies fatigue, Denies fever(s), Denies lethargy, Denies malaise, Denies night sweats, Denies snoring and Denies weight loss Eyes: Eyes: Denies blurry vision and Denies itchy eyes ENT: Denies nasal congestion, Denies post nasal drip, Denies sinus pain, Denies sinus pressure and Denies other ( Thrush) Cardiovascular: Cardiovascular: Denies chest pain, Denies pedal edema, Denies dyspnea, Reports dyspnea on exertion, Denies orthopnea and Denies paroxysmal nocturnal dyspnea Respiratory: Respiratory: Denies cough, Denies hemoptysis, Denies excessive phlegm production, Denies dyspnea, Reports dyspnea on exertion, Denies snoring and Denies wheezing Gastrointestinal: Gastrointestinal: Denies abdominal pain and Denies heartburn Musculoskeletal: Musculoskeletal: Denies myalgias, Denies arthralgias and Denies joint swelling Integumentary/Breasts: Skin/Breast: Denies rash Neurologic: Denies memory loss and Denies seizure-like activity Psychiatric: Psychiatric: Denies abnormal sleep pattern, Denies anxiety and Denies memory loss Endocrine: Endocrine: Denies excessive sweating, Denies fatigue and Denies heat intolerance Hematologic/Lymphatic: Hematologic/Lymphatic: Denies easy bruising Allergic/Immunologic: Allergic/Immunologic: Denies itchy eyes, Denies seasonal rhinorrhea and Denies wheezing PMFSH Past Medical History Medical History (Updated 10/24/21 @ 11:07 by Justino Lazo MD) Erosive esophagitis HCV (hepatitis C virus) Latent tuberculosis Severe chronic obstructive pulmonary disease Family History Family History (Updated 10/22/21 @ 12:18 by Nabor Irene MD) Mother HTN (hypertension) Brother COPD (chronic obstructive pulmonary disease) Social History Social History Household Members: Family Housing: House Do you presently have visiting nurse or other home services: No Alcohol intake: former Patient Tobacco Use Status: Current someday Tobacco user Tobacco use type: Cigarette Cigarettes Per Day: 10 Years Smoked: 30 Substance Use Type: Heroin service: No Current occupational status: unemployed Meds Allergies Allergy/AdvReac Type Severity Reaction Status Date / Time No Known Allergies Allergy Verified 02/13/21 14:54 Active Medications: Current Medications Acetaminophen (Acetaminophen 325 Mg Tablet) 650 mg PO Q6H PRN PRN Reason: Pain, Mild (Pain Scale 1-3) Last Admin: 10/23/21 18:18 Dose: 650 mg Documented by: Albuterol Sulfate (Albuterol Sulfate (0.083%) 2.5 Mg/3 Ml Vial.Neb) 2.5 mg INHALE ONCE PRN PRN Reason: Wheezing Albuterol/Ipratropium (Albuterol/Iprat 2.5/0.5mg 3 Ml Ampul.Neb) 3 ml INHALE RQ4H WHILE AWAKE LIBBY Last Admin: 10/24/21 07:47 Dose: 3 ml Documented by: Albuterol/Ipratropium (Albuterol/Iprat 2.5/0.5mg 3 Ml Ampul.Neb) 1.5 ml INHALE Q2H PRN PRN Reason: Shortness of Breath Fentanyl (Fentanyl Citrate/Pf 100 Mcg/2 Ml Vial) 50 mcg IVPUSH Q5M PRN; Protocol PRN Reason: Pain, Severe (Pain Scale 7-10) Hydromorphone HCl (Hydromorphone Hcl 0.5 Mg/0.5 Ml Syringe) 0.5 mg IVPUSH Q4H PRN; Protocol PRN Reason: Pain, Severe (Pain Scale 7-10) Last Admin: 10/24/21 08:36 Dose: 0.5 mg Documented by: Hydromorphone HCl (Hydromorphone Hcl 0.5 Mg/0.5 Ml Syringe) 0.5 mg IVPUSH Q5M PRN; Protocol PRN Reason: Pain, Severe (Pain Scale 7-10) Cefazolin Sodium/Dextrose (Ancef) 2 gm in 50 mls @ 100 mls/hr IV POSTOP [facility] Magnesium Hydroxide (Milk Of Magnesia 30 Ml Oral.Susp) 30 ml PO DAILY PRN PRN Reason: Constipation Melatonin (Melatonin 3 Mg Tablet) 6 mg PO BEDTIME PRN PRN Reason: Insomnia Methadone HCl (Methadone Hcl 20 Mg/2 Ml Oral.Conc) 39 mg PO DAILY [facility] Last Admin: 10/24/21 08:36 Dose: 39 mg Documented by: Methylprednisolone Sodium Succinate (Methylprednisolone Sod Succ 40 Mg/Ml Vial) 30 mg IVPUSH Q8H [facility] Last Admin: 10/24/21 06:06 Dose: 30 mg Documented by: Ondansetron HCl (Ondansetron Hcl 4 Mg/2 Ml Vial) 4 mg IVPUSH Q8H PRN PRN Reason: Nausea and Vomiting Ondansetron HCl (Ondansetron Hcl 4 Mg/2 Ml Vial) 4 mg IVPUSH ONCE PRN PRN Reason: Nausea and Vomiting Sodium Chloride (0.9 % Sodium Chloride Flush 3 Ml Syringe) 3 ml IVFLUSH QSHIFT [facility] Last Admin: 10/24/21 08:37 Dose: 3 ml Documented by: Home Medications Medication Instructions Recorded Confirmed Last Taken Type pantoprazole 40 mg tablet,delayed 40 mg PO DAILY 03/29/20 10/22/21 Unknown History release umeclidinium 62.5 mcg-vilanterol 1 puff INHALATION DAILY 02/12/21 10/22/21 Unknown History 25 mcg/actuation powdr for inhalation (Anoro Ellipta) albuterol sulfate 1 amp INHALATION Q4H PRN 10/22/21 10/22/21 Unknown History albuterol sulfate 90 mcg/actuation 2 puff INHALATION Q6H PRN 10/22/21 10/22/21 Unknown History aerosol inhaler (ProAir HFA) Physical Exam Vital Signs: Vital Signs: Last Vital Signs Temp 97 F 10/24/21 11:00 Pulse 110 H 10/24/21 11:00 Resp 18 10/24/21 11:00 BP 107/71 10/24/21 11:00 Pulse Ox 90 L 10/24/21 11:00 Oxygen Flow Rate 5 10/22/21 08:45 BMI result Body Mass Index 20.9 Const: General: no acute distress and alert Nutritional Appearance: not obese Orientation/consciousness: Other orientation findings ( oriented) HEENT: Head: Yes atraumatic Mouth: no other ( thrush) Throat: No postnasal drainage Eyes: General: appearance normal, both eyes and all related structures Sclerae: sclerae normal EOM: EOMs intact bilaterally Neck: Neck: Yes supple Lymphatic: no lymphadenopathy noted Resp: Effort & Inspection: normal respiratory effort and no use of accessory muscles Auscultation: clear to auscultation bilaterally Cardio: Rate: tachycardic Rhythm: regular rhythm Heart sounds: no gallops, no murmurs and no rubs GI: Palpation (GI): Soft to palpation and Other GI palpation findings present ( nontender) Skin: General skin exam: other ( warm) Rashes: no rashes Extrem: General: No clubbing, No cyanosis and No edema Results Laboratory Findings CBC and BMP: 10/24/21 08:12 10/24/21 08:12 ABG, PT/INR, D-dimer: PT/INR, D-dimer PT 13.8 SEC (9.9-13.0) H 10/22/21 10:28 INR 1.2 (0.9-1.1) H 10/22/21 10:28 Abnormal lab findings: Abnormal Labs 10/22/21 10/22/21 10/22/21 10:28 10:28 10:28 WBC 4.0 L RBC 4.17 L Hgb 11.1 L Hct 34.6 L MCV MCH 26.6 L Plt Count 50 L MPV 9.1 L Neut % (Auto) Lymph % (Auto) Lymph # (Auto) Neutrophils % (Manual) 79 H Band Neutrophils % 2 L Lymphocytes % (Manual) 5 L Monocytes % (Manual) 14 H Lymphocytes # (Manual) 0.2 L PT 13.8 H INR 1.2 H APTT 47.7 H Sodium Potassium 6.0 H* D Chloride 95 L Carbon Dioxide 31 H BUN 19 H Random Glucose 120 H 10/23/21 10/23/21 10/23/21 06:13 06:13 12:02 WBC 2.7 L RBC 4.29 L 4.31 L Hgb 11.2 L 11.5 L Hct 34.3 L 34.5 L MCV MCH 26.1 L 26.7 L Plt Count 58 L 82 L D MPV 9.0 L Neut % (Auto) 80.8 H Lymph % (Auto) 10.3 L Lymph # (Auto) 0.3 L Neutrophils % (Manual) Band Neutrophils % Lymphocytes % (Manual) Monocytes % (Manual) Lymphocytes # (Manual) PT INR APTT Sodium 134 L Potassium Chloride 91 L Carbon Dioxide 34 H BUN 21 H Random Glucose 10/24/21 10/24/21 08:12 08:12 WBC RBC 4.06 L Hgb 10.6 L Hct 31.8 L MCV 78.3 L MCH 26.1 L Plt Count 133 L D MPV 9.0 L Neut % (Auto) Lymph % (Auto) Lymph # (Auto) Neutrophils % (Manual) Band Neutrophils % Lymphocytes % (Manual) Monocytes % (Manual) Lymphocytes # (Manual) PT INR APTT Sodium Potassium Chloride 91 L Carbon Dioxide 34 H BUN 29 H Random Glucose 123 H Assessment and Plan (1) Severe chronic obstructive pulmonary disease: Status: Acute (2) Supplemental oxygen dependent: Status: Acute (3) Acute and chronic respiratory failure with hypoxia: Status: Acute Plan Impression: 56-year-old gentleman with underlying severe COPD on supplemental oxygen 2-4 L admitted after mechanical flow resulting in a right hip fracture now status post open reduction internal fixation hospital course complicated by worsening hypoxemia. No clinic, symptoms of pneumonia worsening lower. Concern for possible pulmonary emboli asthma. Recommendations: Will obtain CT angio chest for further evaluation. Will charmaine nue to follow. Continue supplemental oxygen to maintain O2 saturation of 88- 92%. Procedures Date of Service Date of Service: 10/24/21
--- NOTE | 2021-10-24 11:32 | HO.POSTANES ---
Post Anesthesia Evaluation Post Anesthesia Evaluation Vital Signs: Vital Signs Temp Pulse Resp BP Pulse Ox 10/24/21 11:00 97 F 110 H 18 107/71 90 L 10/24/21 09:52 86 L 10/24/21 09:31 101 H 91 L 10/24/21 07:48 101 H 24 H 10/24/21 06:46 98 F 101 H 20 118/73 90 L 10/24/21 03:10 97.4 F 96 16 125/81 95 10/24/21 01:32 18 10/24/21 00:31 20 Anesthesia: Spinal Mental Status: Awake Pain Control: Satisfactory Nausea/Vomiting: None Hydration: Adequate Anesthesia-Related Issues: No Anes. Related Issues
[2021-10-24] MEDS: Furosemide 40 MG/4 ML VIAL IVPUSH (11:35)
[2021-10-24] MEDS: oxyCODONE HCl Immed Release 5 MG TABLET 10 MG PO ×2 (11:45→22:38)
--- NOTE | 2021-10-24 12:04 | P.CDIC_ITS ---
CDI Concurrent Query Documentation Clarification: PHYSICIAN'S DOCUMENTATION REQUEST Date of Query: 10/24/21 1204 Patient Name: Arnaud Triplett Admit Date: 10/22/21 Dear Doctor, A review of the medical record indicates additional documentation may be needed. Please review below and update the documentation accordingly. Risk Factors/Clinical Indicators/Treatments Platelet 50 on 10/22;58, 82 on 10/23; 133 on 10/24 Received platelet infusion pre-op. OR on 10/23/21 for R hip cephalomedullary nail Based on the above, could you clarify in the Progress Notes the appropriate diagnosis, if significant, that supports the above abnormalities and additional evaluation, monitoring, and/or treatment rendered: * Based on the above clinical indicators, please provide a diagnosis associated with the evaluation, monitoring and treatment of the patient's platelet level * Unable to determine Use of terms such as suspected, likely, concern for, or probable (associated with a specific diagnosis that is being evaluated, monitored, or treated as if it exists) are acceptable and can be coded in the inpatient setting, when documented at the time of discharge. Thank you, Brianna Nicole , JEANNE Extension: [phone] Please use your independent medical judgment in providing your response. THIS QUERY IS PART OF THE PERMANENT MEDICAL RECORD
--- NOTE | 2021-10-24 15:41 | MHC.CM.PN ---
ACUTE/SHORT TERM REHAB REFERRALS UPDATED WITH PT/OT PAUL
[2021-10-24] MEDS: iohexoL 350 MG/ML 100 ML INFUS..BTL IV (16:07)
--- NOTE | 2021-10-24 17:17 | PC.NURSE ---
CT result available,Dr. Irene made aware
[2021-10-24 20:53] LABS: Glucose, Whole Blood 102 mg/dL (60-115)
--- NOTE | 2021-10-24 21:39 | PC.NURSE ---
Addendum entered by Tami Kwan RN 10/24/21 22:32: updraft tx was administered with good effect,sat 94% on 11 liters via Frazier cannula,IV Doxycyline started Original Note: P sat 87% on 9 L via Frazier Cannula,R 20 I patient repositioned,respiratory therapist in to assess patient,increased oxygen to 10 L,sat up to 90% for short time but than down to 87-88 %,Dr. Cruz notified E will monitor
[2021-10-24] MEDS: Albuterol Sulfate (0.083%) 2.5 MG/3 ML VIAL.NEB INHALE (21:51)
[2021-10-24] MEDS: Doxycycline Hyclate 100 MG in 0.9 % Sodium Chloride 250 ML 166.67 MG IV (22:31)
[2021-10-25] VITALS (12 sets, daily range): BP systolic 103–114; BP diastolic 58–71; PULSE 82–102; RESP 17–20; TEMP 36.1–37.4; O2SAT 91–97
[2021-10-25] MEDS: HYDROmorphone HCl 0.5 MG/0.5 ML SYRINGE IVPUSH ×5 (00:09→21:50)
[2021-10-25] MEDS: methylPREDNISolone Sod Succ 40 MG/ML VIAL 30 MG IVPUSH ×3 (05:36→21:51)
[2021-10-25] MEDS: Enoxaparin Sodium 40 MG/0.4 ML SYRINGE SUBCUT (07:50)
--- NOTE | 2021-10-25 07:50 | PM.PNORT ---
Subjective Subjective Date of Service: 10/25/21 Interval history: POD2 s/p Rt hip IM Nail. Resting in bed comfortably. No overnight events. Pain is well managed. No additional complaints. Physical Exam Vital Signs: Vital Signs: Last Vital Signs Temp 97.9 F 10/25/21 06:45 Pulse 89 10/25/21 06:45 Resp 18 10/25/21 06:45 BP 110/70 10/25/21 06:45 Pulse Ox 91 L 10/25/21 06:45 Oxygen Flow Rate 9 10/24/21 11:39 BMI result Body Mass Index 20.9 Const: General: cooperative, healthy appearing and no acute distress Resp: Effort & Inspection: normal respiratory effort and able to speak in complete sentences Cardio: Rate: regular rate Peripheral pulses: Peripheral pulses 2+ throughout GI: Palpation (GI): Soft to palpation Skin: Lesions: no lesions Rashes: no rashes Extrem: Other: Right hip bandages are clean, dry, and intact. NVI. Procedures Date of Service Date of Service: 10/25/21 Progress Note: A&P Assessment and plan (1) Closed intertrochanteric fracture: Status: Acute Assessment and Plan: Continue pain mgmnt Begin Lovenox for dvt ppx Continue PT for Rt hip IM Nail Dispo planning-Pending - Pain mgmnt, cleared for D/C from ortho perspective Time Spent With Patient Time: Total time spent is greater than 50% in coordination of care (as documented) at patient's floor/unit and/or counseling patient: Quality Stroke Does the patient have a stroke diagnosis?: No VTE Prior VTE?: No VTE Risk Level:: Medical - moderate - high VTE Device Contraindication: N/A - Device Ordered VTE Drug Contraindication: Treatment Not Indicated
[2021-10-25] MEDS: 0.9 % Sodium Chloride Flush 3 ML SYRINGE IVFLUSH ×3 (07:54→21:51)
[2021-10-25] MEDS: oxyCODONE HCl Immed Release 5 MG TABLET 10 MG PO ×2 (08:12→19:22)
[2021-10-25] MEDS: methADONE HCl 20 MG/2 ML ORAL.CONC 39 MG PO (08:53)
--- NOTE | 2021-10-25 08:55 | P.PNIM_ITS ---
Subjective Subjective Date of Service: 10/25/21 Interval History: acute hypoxiemic respiratory failure Review of Systems Feels slightly better shortness of breath, denies any chest pain or abdominal pain nausea or vomiting Has some hip pain. Physical Exam Vital Signs: Vital Signs: Last Vital Signs Temp 97.9 F 10/25/21 06:45 Pulse 89 10/25/21 06:45 Resp 18 10/25/21 06:45 BP 110/70 10/25/21 06:45 Pulse Ox 91 L 10/25/21 06:45 Oxygen Flow Rate 9 10/24/21 11:39 BMI result Body Mass Index 20.9 Appearance: Alert.? Oriented X3.? not in distress.? cvs: rrr, [id number] , no murmur res: air netry fair but seems slightly diminshed at bases, no wheezing abd: no rebound or guarding ,nt, bs present. ext pulses present , no cyanosis . neuro: axo3 , nonfocal. Objective Data Active Medications Acetaminophen (Acetaminophen 325 Mg Tablet) 650 mg PO Q6H PRN PRN Reason: Pain, Mild (Pain Scale 1-3) Last Admin: 10/23/21 18:18 Dose: 650 mg Documented by: NICOLE Albuterol/Ipratropium (Albuterol/Iprat 2.5/0.5mg 3 Ml Ampul.Neb) 3 ml INHALE RQ4H WHILE AWAKE PENDING SALE TO [facility] Last Admin: 10/25/21 07:36 Dose: Not Given Documented by: OBED Non-Admin Reason: Patient Refused Albuterol/Ipratropium (Albuterol/Iprat 2.5/0.5mg 3 Ml Ampul.Neb) 1.5 ml INHALE Q2H PRN PRN Reason: Shortness of Breath Enoxaparin Sodium (Enoxaparin Sodium 40 Mg/0.4 Ml Syringe) 40 mg SUBCUT Q24H [facility] Last Admin: 10/25/21 07:50 Dose: 40 mg Documented by: OSMANI Comments: Med teaching purpose and side effects Fentanyl (Fentanyl Citrate/Pf 100 Mcg/2 Ml Vial) 50 mcg IVPUSH Q5M PRN; Protocol PRN Reason: Pain, Severe (Pain Scale 7-10) Hydromorphone HCl (Hydromorphone Hcl 0.5 Mg/0.5 Ml Syringe) 0.5 mg IVPUSH Q4H PRN; Protocol PRN Reason: Pain, Severe (Pain Scale 7-10) Last Admin: 10/25/21 04:07 Dose: 0.5 mg Documented by: HAIDER Hydromorphone HCl (Hydromorphone Hcl 0.5 Mg/0.5 Ml Syringe) 0.5 mg IVPUSH Q5M PRN; Protocol PRN Reason: Pain, Severe (Pain Scale 7-10) Cefazolin Sodium/Dextrose (Ancef) 2 gm in 50 mls @ 100 mls/hr IV POSTOP LIBBY Doxycycline Hyclate 100 mg/ (Sodium Chloride) 250 mls @ 166.67 mls/hr IV Q12H [facility]END[facility] Last Infusion: 10/25/21 00:04 Dose: 0 mls/hr Documented by: HAIDER Magnesium Hydroxide (Milk Of Magnesia 30 Ml Oral.Susp) 30 ml PO DAILY PRN PRN Reason: Constipation Melatonin (Melatonin 3 Mg Tablet) 6 mg PO BEDTIME PRN PRN Reason: Insomnia Methadone HCl (Methadone Hcl 20 Mg/2 Ml Oral.Conc) 39 mg PO DAILY [facility] Last Admin: 10/24/21 08:36 Dose: 39 mg Documented by: FUNMILAYO Methylprednisolone Sodium Succinate (Methylprednisolone Sod Succ 40 Mg/Ml Vial) 30 mg IVPUSH Q8H [facility] Last Admin: 10/25/21 05:36 Dose: 30 mg Documented by: HAIDER Ondansetron HCl (Ondansetron Hcl 4 Mg/2 Ml Vial) 4 mg IVPUSH Q8H PRN PRN Reason: Nausea and Vomiting Ondansetron HCl (Ondansetron Hcl 4 Mg/2 Ml Vial) 4 mg IVPUSH ONCE PRN PRN Reason: Nausea and Vomiting Oxycodone HCl (Oxycodone Hcl Immed Release 5 Mg Tablet) 10 mg PO Q4H PRN PRN Reason: Pain, Moderate (Pain Scale 4-6 Last Admin: 10/25/21 08:12 Dose: 10 mg Documented by: OSMANI Sodium Chloride (0.9 % Sodium Chloride Flush 3 Ml Syringe) 3 ml IVFLUSH QSHIFT [facility] Last Admin: 10/25/21 07:54 Dose: 3 ml Documented by: OSMANI Labs CBC & Chem 7: 10/24/21 08:12 10/24/21 08:12 Labs: Laboratory Results - last 24 hr 10/24/21 10/24/21 10/24/21 08:12 08:12 20:23 MCV 78.3 L MCH 26.1 L MCHC 33.3 RDW 14.7 Plt Count 133 L D MPV 9.0 L Absolute Nucleated RBC 0.000 Nucleated RBC % (auto) 0.0 Anion Gap 14 Estim Creat Clear Calc 98.0 Estimated GFR > 60 POC Glucose 102 Random Glucose 123 H Calcium 8.9 Assessment and Plan (1) Acute and chronic respiratory failure with hypoxia: Status: Acute Plan 56 year old male with end stage COPD, hepc, chronic venous stasis here with mechanical fall and right hip fracture 1/ Right Hip fracture s/p operative repair on 10/23 -continue postoperative care -pain control and DVT prophylaxis as deemed appropriate by the Orthopedic surgery. 2/acute hypoxemic respiratory failure :COPD--end stage.. cta -no pulm embolism , has ?infiltrate right lower lobe abg reviewed. continue nebs , steriods ,antibiotics d/w pulm -also added barium swlalow 3/ Chronic leg edame --continue lasix 4/ GERD--PPI 5/ Opioid Dependence--Methadone 6/Hep C, mild inrease in INR, possible underlying coagulopathy--getting FFP before surgery DVT prophylaxis--To be determine after surgery but can be on? compression device for now.? inpatient: for post op care, hypoxia Quality Stroke Does the patient have a stroke diagnosis?: No VTE Prior VTE?: No VTE Risk Level:: Medical - moderate - high VTE Device Contraindication: N/A - Device Ordered VTE Drug Contraindication: Treatment Not Indicated
[2021-10-25 09:22] LABS: Venous Blood Gas Refer to POC result
[2021-10-25 09:23] LABS: VBG Base Excess 15.1 mmol/L; VBG HCO3 39 mmol/L (22-26); VBG pCO2 46 mmHg; VBG pH 7.53 (7.32-7.43); VBG pO2 70 mmHg
--- NOTE | 2021-10-25 09:38 | W.PM.OPN ---
Operative Note Operative Note Date of Service: 10/25/21 Narrative: Pre-op diagnosis: Right hip intertrochanteric fracture Post-op diagnosis: same Procedure: Right hip cepahlomedullary nail Implants: Ole [id number] 130deg with 100 mm hip screw and 35 mm distal interlock Surgeon: Herberth Arroyo MD Anesthesia: spinal Was an Experimental Display Builder used for this Procedure?: No Estimated blood loss (mL): 150 IV fluids (mL): 800 Pathology: none sent Condition: stable Disposition: PACU Procedure in detail: Patient was brought to the operating room and prepped and draped in standard sterile fashion. Time-out was called to identify proper site procedure proper surgeon and IV antibiotics per weight were administered. He was positioned on the fracture table and a traction and slight internal rotation were performed and biplanar fluoroscopy confirmed initial fracture reduction. I then made a stab incision proximal to the greater trochanter in using a guidewire made a entry point just lateral to the tip of the greater trochanter and placed a guidewire into the femoral metadiaphysis. I then over-reamed with 15 mm Reamer placed my ball-tip guidewire down distally in the femur. I selected a shot, [id number] 130deg, nail. I then placed the nail. I then turned my attention to the hip screw where I used a guidewire and a tip apex distance of less than 1.5 measured a 100mm hip screw. I then pre drilled and placed a hip screw using biplanar fluoroscopy. Once I was satisfied with the position of the hip screw I turned my attention to the distal aspect of the nail. Using perfect [place] technique I placed 1 5.0 35 mm distal interlocking screw using the static hole in the guide. I then placed my set screw proximally and removed all extraneous instrumentation. Final biplanar radiographs were taken. I was satisfied with the position of the hardware and the fracture reduction. I think copiously irrigated closed with absorbable sutures radha and injected 30 mL of into the area of the incisions. Traction was let down patient was placed in sterile dressing awakened from anesthesia brought to recovery room stable condition there were no known complications.
--- NOTE | 2021-10-25 09:39 | MHC.CM.PN ---
EMR REVIEWED, PT REMAINS ON 11L OF O2, [facility] FOLLOWING ARE OFFERING A BED AND FOLLOWING, [facility] UNABLE TO OFFER, CM WILL DISCUSS PREFERENCES W/PT.
[2021-10-25] MEDS: Doxycycline Hyclate 100 MG in 0.9 % Sodium Chloride 250 ML 166.67 MG IV ×2 (11:47→22:31)
--- NOTE | 2021-10-25 15:50 | MHC.SLORD ---
Speech Language Pathology Order Status: MBSS scheduled for 2:15pm tomorrow.
[2021-10-25] MEDS: Albuterol/Iprat 2.5/0.5MG 3 ML AMPUL.NEB INHALE ×2 (16:21→19:18)
[2021-10-25] MEDS: Albuterol/Iprat 2.5/0.5MG 3 ML AMPUL.NEB 1.5 ML INHALE (23:36)
[2021-10-26] VITALS (8 sets, daily range): BP systolic 110–121; BP diastolic 60–73; PULSE 79–91; RESP 14–20; TEMP 36.3–37.6; O2SAT 94–100
[2021-10-26] MEDS: oxyCODONE HCl Immed Release 5 MG TABLET 10 MG PO ×3 (00:03→18:04)
[2021-10-26] MEDS: HYDROmorphone HCl 0.5 MG/0.5 ML SYRINGE IVPUSH ×4 (03:15→20:04)
[2021-10-26] MEDS: methylPREDNISolone Sod Succ 40 MG/ML VIAL 30 MG IVPUSH ×3 (06:03→22:17)
[2021-10-26 06:52] LABS: Hematocrit 25.6 % (42.0-52.0); Hemoglobin 8.6 g/dl (14.0-18.0); Mean Corpuscular HGB Conc 33.6 g/dl (31.0-36.0); Mean Corpuscular Volume 80.5 fL (80.0-98.0); Mean Platelet Volume 9.6 fL (9.4-12.4); Red Blood Count 3.18 X10*6/uL (4.60-5.80); Red Cell Distribution Width 14.4 % (11.0-16.0); White Blood Count 4.5 X10*3/uL (4.8-10.8)
[2021-10-26 06:56] LABS: Platelet Count 63 X10*3/uL (160-400)
[2021-10-26 07:02] LABS: Anion Gap 13 (12-20); Blood Urea Nitrogen 31 mg/dL (9-16); Calcium 8.7 mg/dL (8.4-10.2); Carbon Dioxide 31 mmol/L (22-29); Chloride 96 mmol/L (96-108); Estimated Glomerular Filt Rate > 60; Glucose Random 102 mg/dL (60-115); Potassium 4.1 mmol/L (3.3-5.1); Sodium 136 mmol/L (135-145)
[2021-10-26] MEDS: Enoxaparin Sodium 40 MG/0.4 ML SYRINGE SUBCUT (07:43)
[2021-10-26] MEDS: methADONE HCl 20 MG/2 ML ORAL.CONC 39 MG PO (07:44)
[2021-10-26] MEDS: 0.9 % Sodium Chloride Flush 3 ML SYRINGE IVFLUSH ×3 (07:47→20:05)
--- NOTE | 2021-10-26 08:40 | P.PNIM_ITS ---
Subjective Subjective Date of Service: 10/26/21 Interval History: acute hypoxiemic respiratory failure Review of Systems Feels slightly better shortness of breath, denies any chest pain or abdominal pain nausea or vomiting Has some hip pain. Physical Exam Vital Signs: Vital Signs: Last Vital Signs Temp 99.0 F 10/26/21 07:23 Pulse 88 10/26/21 07:23 Resp 19 10/26/21 07:23 BP 110/60 10/26/21 07:23 Pulse Ox 94 10/26/21 07:23 Oxygen Flow Rate 9 10/24/21 11:39 BMI result Body Mass Index 20.9 Appearance: Alert.? Oriented X3.? not in distress.? cvs: rrr, [id number] , no murmur res: air netry seems diminshed at bases, few rhonchii abd: no rebound or guarding ,nt, bs present. ext pulses present , no cyanosis . neuro: axo3 , nonfocal. Objective Data Active Medications Acetaminophen (Acetaminophen 325 Mg Tablet) 650 mg PO Q6H PRN PRN Reason: Pain, Mild (Pain Scale 1-3) Last Admin: 10/23/21 18:18 Dose: 650 mg Documented by: NICOLE Al Hydroxide/Mg Hydroxide (Magnesium Hydrox/Alum Hydrox 30 Ml Oral.Susp) 15 ml PO Q4H PRN PRN Reason: heartburn Albuterol/Ipratropium (Albuterol/Iprat 2.5/0.5mg 3 Ml Ampul.Neb) 3 ml INHALE RQ4H WHILE AWAKE [facility] Last Admin: 10/26/21 07:22 Dose: Not Given Documented by: OBED Non-Admin Reason: pt states had neb already Albuterol/Ipratropium (Albuterol/Iprat 2.5/0.5mg 3 Ml Ampul.Neb) 1.5 ml INHALE Q2H PRN PRN Reason: Shortness of Breath Last Admin: 10/25/21 23:36 Dose: 1.5 ml Documented by: DAVID Enoxaparin Sodium (Enoxaparin Sodium 40 Mg/0.4 Ml Syringe) 40 mg SUBCUT Q24H [facility] Last Admin: 10/26/21 07:43 Dose: 40 mg Documented by: DABEamon Fentanyl (Fentanyl Citrate/Pf 100 Mcg/2 Ml Vial) 50 mcg IVPUSH Q5M PRN; Protocol PRN Reason: Pain, Severe (Pain Scale 7-10) Hydromorphone HCl (Hydromorphone Hcl 0.5 Mg/0.5 Ml Syringe) 0.5 mg IVPUSH Q4H PRN; Protocol PRN Reason: Pain, Severe (Pain Scale 7-10) Last Admin: 10/26/21 03:15 Dose: 0.5 mg Documented by: FAUSTINO Hydromorphone HCl (Hydromorphone Hcl 0.5 Mg/0.5 Ml Syringe) 0.5 mg IVPUSH Q5M PRN; Protocol PRN Reason: Pain, Severe (Pain Scale 7-10) Cefazolin Sodium/Dextrose (Ancef) 2 gm in 50 mls @ 100 mls/hr IV POSTOP [facility] Doxycycline Hyclate 100 mg/ (Sodium Chloride) 250 mls @ 166.67 mls/hr IV Q12H [facility] Last Infusion: 10/26/21 00:05 Dose: 0 mls/hr Documented by: FAUSTINO Magnesium Hydroxide (Milk Of Magnesia 30 Ml Oral.Susp) 30 ml PO DAILY PRN PRN Reason: Constipation Melatonin (Melatonin 3 Mg Tablet) 6 mg PO BEDTIME PRN PRN Reason: Insomnia Methadone HCl (Methadone Hcl 20 Mg/2 Ml Oral.Conc) 39 mg PO DAILY [facility] Last Admin: 10/26/21 07:44 Dose: 39 mg Documented by: ASHIA Methylprednisolone Sodium Succinate (Methylprednisolone Sod Succ 40 Mg/Ml Vial) 30 mg IVPUSH Q8H [facility] Last Admin: 10/26/21 06:03 Dose: 30 mg Documented by: FAUSTINO Omeprazole (Omeprazole 20 Mg Capsule.Dr) 20 mg PO BID@0630,1630 [facility] Ondansetron HCl (Ondansetron Hcl 4 Mg/2 Ml Vial) 4 mg IVPUSH Q8H PRN PRN Reason: Nausea and Vomiting Ondansetron HCl (Ondansetron Hcl 4 Mg/2 Ml Vial) 4 mg IVPUSH ONCE PRN PRN Reason: Nausea and Vomiting Oxycodone HCl (Oxycodone Hcl Immed Release 5 Mg Tablet) 10 mg PO Q4H PRN PRN Reason: Pain, Moderate (Pain Scale 4-6 Last Admin: 10/26/21 06:04 Dose: 10 mg Documented by: FAUSTINO Sodium Chloride (0.9 % Sodium Chloride Flush 3 Ml Syringe) 3 ml IVFLUSH QSHIFT [facility] Last Admin: 10/26/21 07:47 Dose: 3 ml Documented by: ASHIA Labs CBC & Chem 7: 10/26/21 11:58 10/26/21 06:13 Labs: Laboratory Results - last 24 hr 10/25/21 10/26/21 10/26/21 09:15 06:13 06:13 MCV 80.5 MCH 27.0 MCHC 33.6 RDW 14.4 Plt Count 63 L D MPV 9.6 Absolute Nucleated RBC 0.000 Nucleated RBC % (auto) 0.0 VBG pH 7.53 H VBG pCO2 46 VBG pO2 70 VBG HCO3 39 H VBG O2 Saturation 93.0 VBG Base Excess 15.1 Anion Gap 13 Estim Creat Clear Calc 94.0 Estimated GFR > 60 Random Glucose 102 Calcium 8.7 Assessment and Plan (1) Acute and chronic respiratory failure with hypoxia: Status: Acute (2) Anemia: Status: Acute Plan 56 year old male with end stage COPD, hepc, chronic venous stasis here with mechanical fall and right hip fracture 1/ Right Hip fracture s/p operative repair on 10/23 -continue postoperative care -pain control and DVT prophylaxis as deemed appropriate by the Orthopedic surgery. 2/acute hypoxemic respiratory failure :COPD--end stage.. cta -no pulm embolism , has ?infiltrate right lower lobe abg reviewed. continue nebs , steriods ,antibiotics d/w pulm -also added barium swlalow 3/ Chronic leg edame --continue lasix 4/ GERD--PPI 5.Possible acute blood loss anemia postop: repeat h/h similar in 8 range type and screen iron panel patient denies any acute bleeding or melena 6/ Opioid Dependence--Methadone 7-Hep C, mild inrease in INR, possible underlying coagulopathy--geot FFP before surgery DVT prophylaxis--hold lovenox .due to anemia ,scd inpatient: for post op care, hypoxia Quality Stroke Does the patient have a stroke diagnosis?: No VTE Prior VTE?: No VTE Risk Level:: Medical - moderate - high VTE Device Contraindication: N/A - Device Ordered VTE Drug Contraindication: Treatment Not Indicated
[2021-10-26 08:54] LABS: Iron 36 mcg/dL (45-160); Percent Iron Saturation 15 % (15-50); Total Iron Binding Capacity 237 mcg/dL (228-428); Unsaturated Iron Binding 201 ug/dL
[2021-10-26 09:13] LABS: Ferritin 97 ng/mL (20-250)
[2021-10-26 09:36] LABS: Folate 6.7 ng/mL (> or = 4.0); Vitamin B12 945 pg/mL (200-900)
[2021-10-26] MEDS: Doxycycline Hyclate 100 MG in 0.9 % Sodium Chloride 250 ML 166.67 MG IV ×2 (10:57→22:17)
[2021-10-26 12:12] LABS: Hematocrit 24.9 % (42.0-52.0); Hemoglobin 8.2 g/dl (14.0-18.0)
--- NOTE | 2021-10-26 12:34 | MHC.CM.PN ---
Addendum entered by Michelle Graham 10/26/21 12:37: JODY NELSON, JOSE MANUEL ALFARO MANASSAS, AND BRITT UPDATED IN [employer] Original Note: PATIENT REMAINS HYPOXIC NO PLAN FOR DISCHARGE TODAY
[2021-10-26] MEDS: Ferrous Sulfate 300 MG/5 ML LIQUID PO (15:55)
[2021-10-26] MEDS: Omeprazole 40 MG CAPSULE.DR PO (15:55)
--- NOTE | 2021-10-26 17:30 | MHC.SL.IMP ---
Date of Plan of Treatment: 10/26/21 Onset of Symptoms/Illness: 10/25/21 Date Treatment Started: 10/26/21 Admitting Diagnosis: Mechanical fall and right hip fracture s/p operative repair on 10/23/21 Primary Speech & Language Diagnosis: R13.12 Oropharyngeal Phase Dysphagia Reason for Today's Visit: 11210 Modified Barium Swallow Study Pre-evaluation Dietary Consistencies: Regular Pre-evaluation Liquid Consistency: Thin Pre-evaluation Medication Administration: Whole with Liquid Medical History: Comments: Modified Barium Swallow Study Fluoroscopic Evaluation of Swallowing Function CPT Code 30888 Evaluation Year: 2021 Reason for Study: Concern for aspiration Referring Physician: Justino Lazo MD Evaluating Clinician: Roslyn Winters MA, [employer]-MOBILE WEB APPLICATION DEVELOPER Study Number: 1 Patient Name: Arnaud Triplett Status: Inpatient, Stretcher Age: 56 Gender: Male MEDICAL HISTORY: Year of Onset or Diagnosis: 2021 Comorbidities: End stage COPD Chronic venous stasis Erosive esophagitis Hepatitis C virus Latent tuberculosis Opiate dependence GERD Peripheral edema Current (pre-evaluation) Intake/Diet: Route: PO Diet Grade: Regular Liquid Consistencies: Thin Pre-Study Functional Oral Intake Scale (FOIS): 7- Total oral intake with no restrictions Pain: None reported at time of study SUBJECTIVE: Patient is a 56 year old male admitted for mechanical fall and right hip fracture s/p operative repair on 10/23/21. Patient?s history is significant for GERD, erosive esophagitis, end stage COPD, opiate dependence, peripheral edema, hepatitis C. RN reports patient has been eating and drinking without any difficulties today. Patient denies any difficulty swallowing. -10/24 Chest CTA: ?No evidence of pulmonary embolism. Mild diffuse bronchial wall thickening and peribronchial small nodules or tree-in-bud appearance suggestive of airways disease. Question small infiltrate or bronchopneumonia in the right lower lobe.? Oral Motor Exam Facial Symmetry: Symmetrical Mouth Occlusion: Normal Oral-Facial Teeth Characteristics: Partially Missing Broken Spaces Oral-Facial Lip Pucker Description: Normal Oral-Facial Smile (Lips) Description: Normal Oral-Facial Puff Cheeks Description: Normal Tongue Size: Normal Tongue Excursion Description: Normal Tongue Range of Movement Description: Normal Tongue Speed of Movement Description: Normal Tongue Strength of Movement (against opposing pressure): Normal Tongue Movement Characteristics: Normal/Absent Is patient able to manage secretions?: Yes Food and Liquid Trials: Oral Impairment: Lip Closure: Did not test Oral Impairment: Tongue Control During Bolus Hold: 0=Cohesive bolus between tongue to palatal seal Oral Impairment: Bolus Preparation/Mastication: 1=Slow prolonged chewing/mashing with complete re-collection Oral Impairment: Bolus Transport/Lingual Motion: 2=Slowed tongue motion Oral Impairment: Oral Residue: 2=Residue collection on oral structures Oral Impairment:Initiation of Pharyngeal Swallow: 3=Bolus head in pyriforms Pharyngeal Impairment: Soft Palate Elevation: 0=No bolus between soft palate (SP)/pharyngeal wall (PW) Pharyngeal Impairment: Laryngeal Elevation: 1=Partial thyroid cartilage/arytenoids to epiglottic petiole movement Pharyngeal Impairment: Anterior Hyoid Excursion: 1=Partial anterior movement Pharyngeal Impairment: Epiglottic Movement: 0=Complete inversion Pharyngeal Impairment: Laryngeal Vestibular Closure:: 0=Complete: no air/contrast in laryngeal vestibule Pharyngeal Impairment: Pharyngeal Stripping Wave: 1=Present: diminished Pharyngeal Impairment: Pharyngeal Contraction: Did not test Pharyngeal Impairment: Pharyngoesophageal Segment Openin=Complete distension and complete duration: no obstruction of flow Pharyngeal Impairment: Tongue Base (TB) Retraction: 2=Narrow column of contrast/air between TB and posterior PW Pharyngeal Impairment: Pharyngeal Residue: 0=Complete pharyngeal clearance Pharyngeal Impairment: Esophageal Clearance Upright Position: Did not test Impressions and Recommendations Clinical Observations: OBJECTIVE: Time-out: performed at 02:30 Evaluation Start: 02:15; Stop: 02:20 Patient Positioning: Seated 70-90 degrees Viewing Planes: LATERAL ONLY Contrast: MBSImP? Standardized Protocol using commercially prepared, standardized Barium viscosities, including: Varibar? THIN LIQUID (40% w/v, <15 cps) , 1/2 Shortbread Cookie (1 x1 x.25 ) MBSImP ID: [id number] MBSImP Results: Lip closure for intraoral bolus containment could not be assessed due to logistical reasons not related to physiologic impairment. Tongue control during bolus hold maintained a cohesive bolus held between tongue to palate seal. Bolus preparation and mastication resulted in slow, prolonged chewing/mashing but with complete re-collection. Bolus transport/lingual motion was with slowed tongue motion. Oral residue was a collection on oral structures. Initiation of the pharyngeal swallow occurred when the bolus head was in the pyriform sinuses. Soft palate elevation resulted in no bolus between the soft palate and the pharyngeal wall. Laryngeal elevation was decreased, with partial superior movement of the thyroid cartilage/partial approximation of the arytenoids to the epiglottic petiole. Anterior hyoid excursion demonstrated partial anterior movement. Epiglottic movement resulted in complete inversion. Laryngeal vestibular closure was complete, as indicated by no air or contrast within the laryngeal vestibule at the height of the swallow. Pharyngeal stripping wave was present, but diminished. Pharyngeal contraction could not be determined due to logistical reasons not related to physiologic impairment. Pharyngoesophageal segment opening was completely distended for complete duration with no obstruction of bolus flow. Tongue base retraction allowed a narrow column of contrast or air between the retracted tongue base and the posterior pharyngeal wall. Pharyngeal residue was not present. There was complete pharyngeal clearance. Esophageal clearance in the upright position could not be assessed due to logistical reasons not related to physiologic impairment. Oral Impairment Score: 8 (absence of score, component 1) Pharyngeal Impairment Score: 5 (absence of score, component 13) Esophageal Impairment Score: --- (absence of score, component 17) Laryngeal Penetration and Aspiration: Neither penetration nor aspiration was observed in today's study with Cookie, Thin. ASSESSMENT: Clinician Assessment: This exam was conducted by a multidisciplinary team which included a speech pathologist, radiologist, and computer repair technician. Patient was seated upright in a chair for lateral view only. Patient trialed the following liquid and solid consistencies: 5mL thin liquid barium, individual cup sip with bolus hold thin liquid barium, chain sips by cup thin liquid barium, pureed solid (mixture applesauce with barium paste), ground solid (mixture chicken salad with barium paste), regular solid (Geena Doone cookie coated with barium paste). Patient was able to maintain cohesive bolus between tongue to palatal seal when instructed for bolus hold. Mastication was slow and prolonged, characterized by piece meal deglutition pattern. Patient chewed bolus, swallowed partial bolus, chewed remaining bolus and swallowed again. Patient swallowed 2-3 times to clear oral cavity. Lingual transport of bolus was mildly slow. Mild oral residue effectively cleared with subsequent dry swallow. Delayed pharyngeal swallow trigger initiated as bolus head reached pyriform sinuses. No nasopharyngeal reflux. Partial laryngeal elevation and partial anterior hyoid excursion. Complete laryngeal vestibular closure. No evidence of aspiration or penetration during this exam. Complete pharyngeal clearance. No obstruction of flow through pharyngoesophageal segment opening. Liquid Intake Recommendation: Thin Liquid Intake Strategies: Small Sips Dietary Recommendations: Regular Medication Administration: Whole with Liquid Please contact the pharmacy regarding appropriate crushable or liquid drug formulations that are available whenever modified delivery is recommended. Compensatory Strategies Recommended: Sitting Upright (90 deg) Small Bites and Sips Alternate Liquids/Solids Rate of Ingestion Change Supervision during eating and or drinking: None Needed Recommendation for Speech Therapy: NA:Typical Evaluation Text Comment: PLAN: Intake Recommendations: Route: PO Diet Grade: Regular Liquid Consistencies: Thin Post-Study Functional Oral Intake Scale (FOIS): 7- Total oral intake with no restrictions No evidence of aspiration or penetration during this exam. WFL oral and pharyngeal clearance. Recommend patient to resume unmodified diet regular solids and thin liquids. Further ST intervention is no longer warranted. Therapy Recommendations: Therapy will be discontinued Prognosis for Improvement: The prognosis for the patient to meet nutritional needs by mouth is excellent based on degree of impairment. Clinician - Supplemental, Miscellaneous Communication: It is important to note MBSS objective studies are snapshots in time and Patient function might vary with factors such as time of day or concomitant medical conditions. For this reason, the final treatment plan for this patient should rest with their medical care team. Additional recommendations should be considered with the totality of the Patient in mind. Thank for the opportunity to participate in the care of this patient. If you have any questions about the content of this report, please contact the [facility] at [facility]. Education: Education regarding findings from today's study and plans for therapy were provided to Patient only through Verbal Instruction. Understanding was expressed by the Patient only. Wire Bound Box Machine Helper Clinician/Clinical Fellow: No Supervisory Statement: N/A Speech Language Pathologist: Roslyn Winters M.A., [facility]-MOBILE WEB APPLICATION DEVELOPER
--- NOTE | 2021-10-26 17:34 | MHC.SLORD ---
Speech Language Pathology Order Status: Notified MD, RN, RD of MBSS results via [place] Message.
[2021-10-26] MEDS: Albuterol/Iprat 2.5/0.5MG 3 ML AMPUL.NEB INHALE (19:49)
[2021-10-27] VITALS (12 sets, daily range): BP systolic 107–174; BP diastolic 59–73; PULSE 76–92; RESP 16–22; TEMP 36.4–37.5; O2SAT 91–97
[2021-10-27] MEDS: HYDROmorphone HCl 0.5 MG/0.5 ML SYRINGE IVPUSH ×5 (00:01→22:30)
[2021-10-27] MEDS: Omeprazole 40 MG CAPSULE.DR PO ×2 (06:03→16:06)
[2021-10-27] MEDS: methylPREDNISolone Sod Succ 40 MG/ML VIAL 30 MG IVPUSH ×3 (06:03→22:31)
[2021-10-27] MEDS: oxyCODONE HCl Immed Release 5 MG TABLET 10 MG PO ×3 (06:04→19:55)
[2021-10-27 06:33] LABS: Hematocrit 24.7 % (42.0-52.0); Hemoglobin 8.1 g/dl (14.0-18.0)
[2021-10-27 06:46] LABS: Anion Gap 10 (12-20); Blood Urea Nitrogen 29 mg/dL (9-16); Calcium 8.3 mg/dL (8.4-10.2); Carbon Dioxide 31 mmol/L (22-29); Chloride 101 mmol/L (96-108); Creatinine Clr Calc Pharmacy 96.6; Estimated Glomerular Filt Rate > 60; Glucose Random 99 mg/dL (60-115); Potassium 4.7 mmol/L (3.3-5.1); Sodium 137 mmol/L (135-145)
--- NOTE | 2021-10-27 07:32 | P.PNIM_ITS ---
Subjective Subjective Date of Service: 10/27/21 Interval History: acute hypoxiemic respiratory failure Review of Systems Feels slightly better shortness of breath, denies any chest pain or abdominal pain nausea or vomiting hip pain soarness improving. Physical Exam Vital Signs: Vital Signs: Last Vital Signs Temp 97.8 F 10/27/21 03:51 Pulse 91 10/26/21 23:13 Resp 18 10/27/21 03:51 BP 174/73 H 10/27/21 05:34 Pulse Ox 94 10/27/21 03:51 Oxygen Flow Rate 9 10/24/21 11:39 BMI result Body Mass Index 20.9 Appearance: Alert.? Oriented X3.? not in distress.? cvs: rrr, [id number] , no murmur res: air netry fair but seems slightly diminshed at bases, no wheezing abd: no rebound or guarding ,nt, bs present. ext pulses present , no cyanosis . neuro: axo3 , nonfocal. Objective Data Active Medications Acetaminophen (Acetaminophen 325 Mg Tablet) 650 mg PO Q6H PRN PRN Reason: Pain, Mild (Pain Scale 1-3) Last Admin: 10/23/21 18:18 Dose: 650 mg Documented by: NICOLE Al Hydroxide/Mg Hydroxide (Magnesium Hydrox/Alum Hydrox 30 Ml Oral.Susp) 15 ml PO Q4H PRN PRN Reason: heartburn Albuterol/Ipratropium (Albuterol/Iprat 2.5/0.5mg 3 Ml Ampul.Neb) 3 ml INHALE RQ4H WHILE AWAKE [facility] Last Admin: 10/26/21 19:49 Dose: 3 ml Documented by: DAVID Albuterol/Ipratropium (Albuterol/Iprat 2.5/0.5mg 3 Ml Ampul.Neb) 1.5 ml INHALE Q2H PRN PRN Reason: Shortness of Breath Last Admin: 10/25/21 23:36 Dose: 1.5 ml Documented by: DAVID Enoxaparin Sodium (Enoxaparin Sodium 40 Mg/0.4 Ml Syringe) 40 mg SUBCUT Q24H [facility] Last Admin: 10/26/21 07:43 Dose: 40 mg Documented by: DABA Fentanyl (Fentanyl Citrate/Pf 100 Mcg/2 Ml Vial) 50 mcg IVPUSH Q5M PRN; Protocol PRN Reason: Pain, Severe (Pain Scale 7-10) Ferrous Sulfate (Ferrous Sulfate 300 Mg/5 Ml Liquid) 300 mg PO BIDWM [facility] Last Admin: 10/26/21 15:55 Dose: 300 mg Documented by: ASHIA Hydromorphone HCl (Hydromorphone Hcl 0.5 Mg/0.5 Ml Syringe) 0.5 mg IVPUSH Q4H PRN; Protocol PRN Reason: Pain, Severe (Pain Scale 7-10) Last Admin: 10/27/21 04:05 Dose: 0.5 mg Documented by: FAUSTINO Hydromorphone HCl (Hydromorphone Hcl 0.5 Mg/0.5 Ml Syringe) 0.5 mg IVPUSH Q5M PRN; Protocol PRN Reason: Pain, Severe (Pain Scale 7-10) Cefazolin Sodium/Dextrose (Ancef) 2 gm in 50 mls @ 100 mls/hr IV POSTOP [facility] Doxycycline Hyclate 100 mg/ (Sodium Chloride) 250 mls @ 166.67 mls/hr IV Q12H [facility] Last Infusion: 10/26/21 23:52 Dose: 0 mls/hr Documented by: FAUSTINO Magnesium Hydroxide (Milk Of Magnesia 30 Ml Oral.Susp) 30 ml PO DAILY PRN PRN Reason: Constipation Melatonin (Melatonin 3 Mg Tablet) 6 mg PO BEDTIME PRN PRN Reason: Insomnia Methadone HCl (Methadone Hcl 20 Mg/2 Ml Oral.Conc) 39 mg PO DAILY [facility] Last Admin: 10/26/21 07:44 Dose: 39 mg Documented by: ASHIA Methylprednisolone Sodium Succinate (Methylprednisolone Sod Succ 40 Mg/Ml Vial) 30 mg IVPUSH Q8H [facility] Last Admin: 10/27/21 06:03 Dose: 30 mg Documented by: FAUSTINO Omeprazole (Omeprazole 40 Mg Capsule.Dr) 40 mg PO BID@0630,1630 [facility] Last Admin: 10/27/21 06:03 Dose: 40 mg Documented by: FAUSTINO Ondansetron HCl (Ondansetron Hcl 4 Mg/2 Ml Vial) 4 mg IVPUSH Q8H PRN PRN Reason: Nausea and Vomiting Ondansetron HCl (Ondansetron Hcl 4 Mg/2 Ml Vial) 4 mg IVPUSH ONCE PRN PRN Reason: Nausea and Vomiting Oxycodone HCl (Oxycodone Hcl Immed Release 5 Mg Tablet) 10 mg PO Q4H PRN PRN Reason: Pain, Moderate (Pain Scale 4-6 Last Admin: 10/27/21 06:04 Dose: 10 mg Documented by: FAUSTINO Sodium Chloride (0.9 % Sodium Chloride Flush 3 Ml Syringe) 3 ml IVFLUSH QSHIFT [facility] Last Admin: 10/26/21 20:05 Dose: 3 ml Documented by: FAUSTINO Labs CBC & Chem 7: 10/27/21 06:14 10/27/21 06:14 Labs: Laboratory Results - last 24 hr 10/26/21 10/26/21 10/26/21 06:13 06:13 11:58 Anion Gap Estim Creat Clear Calc Estimated GFR Random Glucose Calcium Iron 36 L TIBC 237 % Saturation 15 Unsat Iron Binding 201 Ferritin 97 Vitamin B12 945 H Folate 6.7 Blood Type O Positive Antibody Screen NEGATIVE 10/27/21 06:14 Anion Gap 10 L Estim Creat Clear Calc 96.6 Estimated GFR > 60 Random Glucose 99 Calcium 8.3 L Iron TIBC % Saturation Unsat Iron Binding Ferritin Vitamin B12 Folate Blood Type Antibody Screen Assessment and Plan (1) Anemia: Status: Acute (2) Acute and chronic respiratory failure with hypoxia: Status: Acute (3) Acute hip pain: Status: Acute Plan 56 year old male with end stage COPD, hepc, chronic venous stasis here with mechanical fall and right hip fracture 1/ Right Hip fracture s/p operative repair on 10/23 -continue postoperative care -pain control and DVT prophylaxis as deemed appropriate by the Orthopedic surgery. 2/acute hypoxemic respiratory failure :COPD--end stage.. cta -no pulm embolism , has ?infiltrate right lower lobe abg reviewed. cxr improving continue nebs , steriods ,antibiotics, oxygen demand improving slowly barium swallow seems fine pulm followup. 3/ Chronic leg edame --continue lasix 4/ GERD--PPI. 5.Possible acute blood loss anemia postop: repeat h/h similar in 8 range type and screen iron panel noted. patient denies any acute bleeding or melena 6/ Opioid Dependence--Methadone 7-Hep C, mild inrease in INR, possible underlying coagulopathy--geot FFP before surgery DVT prophylaxis--hold? lovenox for today , ifh/h stable then start lovenox back in am,.due to anemia ,scd inpatient: for post op care, hypoxia Quality Stroke Does the patient have a stroke diagnosis?: No VTE Prior VTE?: No VTE Risk Level:: Medical - moderate - high VTE Device Contraindication: N/A - Device Ordered VTE Drug Contraindication: Treatment Not Indicated
[2021-10-27] MEDS: methADONE HCl 20 MG/2 ML ORAL.CONC 39 MG PO (07:55)
[2021-10-27] MEDS: 0.9 % Sodium Chloride Flush 3 ML SYRINGE IVFLUSH ×3 (07:56→22:31)
[2021-10-27] MEDS: Albuterol/Iprat 2.5/0.5MG 3 ML AMPUL.NEB INHALE ×4 (08:16→20:00)
[2021-10-27 08:46] LABS: VBG Base Excess 11.7 mmol/L; VBG HCO3 35 mmol/L (22-26); VBG pCO2 42 mmHg; VBG pH 7.52 (7.32-7.43); VBG pO2 83 mmHg
[2021-10-27 08:50] LABS: Venous Blood Gas Refer to POC result
[2021-10-27] MEDS: Doxycycline Hyclate 100 MG in 0.9 % Sodium Chloride 250 ML 166.67 MG IV ×2 (11:08→22:31)
[2021-10-27 16:36] LABS: B Type Natriuretic Peptide 48 pg/mL (<100)
--- NOTE | 2021-10-27 19:17 | PM.PNORT ---
Subjective Subjective Date of Service: 10/27/21 Interval history: POD 4 s/p Rt hip IMN no overnight events states PT is going well Physical Exam Vital Signs: Vital Signs: Last Vital Signs Temp 99.5 F 10/27/21 15:16 Pulse 77 10/27/21 15:49 Resp 20 10/27/21 15:49 BP 109/66 10/27/21 15:16 Pulse Ox 95 10/27/21 15:16 Oxygen Flow Rate 10.0 10/27/21 11:00 BMI result Body Mass Index 20.9 Const: General: cooperative, healthy appearing and no acute distress Resp: Effort & Inspection: normal respiratory effort and able to speak in complete sentences Cardio: Rate: regular rate Peripheral pulses: Peripheral pulses 2+ throughout GI: Palpation (GI): Soft to palpation Skin: General skin exam: no rashes or lesions noted Extrem: Other: incision clean dry and intact. Marybel intact. No erythema or effusion. Calf supple nontender. Neurovascularly intact. Procedures Date of Service Date of Service: 10/27/21 Progress Note: A&P Assessment and plan (1) Closed intertrochanteric fracture: Status: Acute Assessment and Plan: continue PT/OT for Rt hip strength f/u with orthopedics in 2 weeks for post op appt Time Spent With Patient Time: Total time spent is greater than 50% in coordination of care (as documented) at patient's floor/unit and/or counseling patient: Quality Stroke Does the patient have a stroke diagnosis?: No VTE Prior VTE?: No VTE Risk Level:: Medical - moderate - high VTE Device Contraindication: N/A - Device Ordered VTE Drug Contraindication: Treatment Not Indicated
[2021-10-28] VITALS (10 sets, daily range): BP systolic 116–141; BP diastolic 65–77; PULSE 8–99; RESP 18–20; TEMP 36.2–37.1; O2SAT 90–97
[2021-10-28] MEDS: methylPREDNISolone Sod Succ 40 MG/ML VIAL 30 MG IVPUSH ×2 (04:44→08:19)
[2021-10-28] MEDS: HYDROmorphone HCl 0.5 MG/0.5 ML SYRINGE IVPUSH ×3 (04:45→20:51)
[2021-10-28] MEDS: Omeprazole 40 MG CAPSULE.DR PO ×2 (04:45→16:43)
[2021-10-28 06:24] LABS: Hematocrit 24.8 % (42.0-52.0); Hemoglobin 8.1 g/dl (14.0-18.0)
--- NOTE | 2021-10-28 07:45 | P.PNIM_ITS ---
Subjective Subjective Date of Service: 10/28/21 Interval History: acute hypoxiemic respiratory failure Review of Systems Feels slightly better shortness of breath, denies any chest pain or abdominal pain nausea or vomiting ?hip pain soarness improving. Physical Exam Vital Signs: Vital Signs: Last Vital Signs Temp 98.8 F 10/28/21 07:38 Pulse 85 10/28/21 07:38 Resp 20 10/28/21 07:38 BP 119/69 10/28/21 07:38 Pulse Ox 96 10/28/21 07:38 Oxygen Flow Rate 10.0 10/27/21 11:00 BMI result Body Mass Index 20.9 Appearance: Alert.? Oriented X3.? not in distress.? cvs: rrr, [id number] , no murmur res: air netry fair but seems slightly diminshed at bases, no wheezing abd: no rebound or guarding ,nt, bs present. ext pulses present , no cyanosis . neuro: axo3 , nonfocal. Objective Data Active Medications Acetaminophen (Acetaminophen 325 Mg Tablet) 650 mg PO Q6H PRN PRN Reason: Pain, Mild (Pain Scale 1-3) Last Admin: 10/23/21 18:18 Dose: 650 mg Documented by: NICOLE Al Hydroxide/Mg Hydroxide (Magnesium Hydrox/Alum Hydrox 30 Ml Oral.Susp) 15 ml PO Q4H PRN PRN Reason: heartburn Albuterol/Ipratropium (Albuterol/Iprat 2.5/0.5mg 3 Ml Ampul.Neb) 3 ml INHALE RQ4H WHILE AWAKE [facility] Last Admin: 10/27/21 20:00 Dose: 3 ml Documented by: JUSTUS Albuterol/Ipratropium (Albuterol/Iprat 2.5/0.5mg 3 Ml Ampul.Neb) 1.5 ml INHALE Q2H PRN PRN Reason: Shortness of Breath Last Admin: 10/25/21 23:36 Dose: 1.5 ml Documented by: DAVID Enoxaparin Sodium (Enoxaparin Sodium 40 Mg/0.4 Ml Syringe) 40 mg SUBCUT Q24H [facility] Last Admin: 10/26/21 07:43 Dose: 40 mg Documented by: ASHIA Ferrous Sulfate (Ferrous Sulfate 300 Mg/5 Ml Liquid) 300 mg PO BIDWM [facility] Last Admin: 10/27/21 16:10 Dose: Not Given Documented by: ASHIA Non-Admin Reason: Patient Refused Hydromorphone HCl (Hydromorphone Hcl 0.5 Mg/0.5 Ml Syringe) 0.5 mg IVPUSH Q6H PRN; Protocol PRN Reason: Pain, Severe (Pain Scale 7-10) Last Admin: 10/28/21 04:45 Dose: 0.5 mg Documented by: FAUSTINO Cefazolin Sodium/Dextrose (Ancef) 2 gm in 50 mls @ 100 mls/hr IV POSTOP [facility] Doxycycline Hyclate 100 mg/ (Sodium Chloride) 250 mls @ 166.67 mls/hr IV Q12H [facility] Last Infusion: 10/28/21 00:16 Dose: 0 mls/hr Documented by: FAUSTION Magnesium Hydroxide (Milk Of Magnesia 30 Ml Oral.Susp) 30 ml PO DAILY PRN PRN Reason: Constipation Melatonin (Melatonin 3 Mg Tablet) 6 mg PO BEDTIME PRN PRN Reason: Insomnia Methadone HCl (Methadone Hcl 20 Mg/2 Ml Oral.Conc) 39 mg PO DAILY [facility] Last Admin: 10/27/21 07:55 Dose: 39 mg Documented by: ASHIA Methylprednisolone Sodium Succinate (Methylprednisolone Sod Succ 40 Mg/Ml Vial) 30 mg IVPUSH Q12H [facility] Omeprazole (Omeprazole 40 Mg Capsule.Dr) 40 mg PO BID@0630,1630 [facility] Last Admin: 10/28/21 04:45 Dose: 40 mg Documented by: FAUSTINO Ondansetron HCl (Ondansetron Hcl 4 Mg/2 Ml Vial) 4 mg IVPUSH Q8H PRN PRN Reason: Nausea and Vomiting Ondansetron HCl (Ondansetron Hcl 4 Mg/2 Ml Vial) 4 mg IVPUSH ONCE PRN PRN Reason: Nausea and Vomiting Oxycodone HCl (Oxycodone Hcl Immed Release 5 Mg Tablet) 10 mg PO Q4H PRN PRN Reason: Pain, Moderate (Pain Scale 4-6 Last Admin: 10/27/21 19:55 Dose: 10 mg Documented by: FAUSTINO Sodium Chloride (0.9 % Sodium Chloride Flush 3 Ml Syringe) 3 ml IVFLUSH QSHIFT [facility] Last Admin: 10/27/21 22:31 Dose: 3 ml Documented by: FAUSTINO Labs CBC & Chem 7: 10/28/21 06:04 10/27/21 06:14 Labs: Laboratory Results - last 24 hr 10/27/21 10/27/21 08:38 15:58 VBG pH 7.52 H VBG pCO2 42 VBG pO2 83 VBG HCO3 35 H VBG O2 Saturation 97.0 VBG Base Excess 11.7 B-Natriuretic Peptide 48 Assessment and Plan (1) Anemia: Status: Acute (2) Acute and chronic respiratory failure with hypoxia: Status: Acute (3) Severe chronic obstructive pulmonary disease: Status: Acute Plan 56 year old male with end stage COPD, hepc, chronic venous stasis here with mechanical fall and right hip fracture 1/ Right Hip fracture s/p operative repair on 10/23 -continue postoperative care -pain control and DVT prophylaxis as deemed appropriate by the Orthopedic surge ry. 2/acute hypoxemic respiratory failure :COPD--end stage.. cta -no pulm embolism , has ?infiltrate right lower lobe abg reviewed. cxr improving bnp normal continue nebs , steriods ,antibiotics, oxygen demand improving slowly barium swallow seems fine pulm followup. 3/ Chronic leg edame --continue lasix 4/ GERD--PPI. 5.Possible acute blood loss anemia postop: repeat h/h similar in 8 range type and screen iron panel noted. patient denies any acute bleeding or melena 6/ Opioid Dependence--Methadone 7-Hep C, mild inrease in INR, possible underlying coagulopathy--geot FFP before surgery DVT prophylaxis--h/h stable , will start lovenox,.due to anemia ,scd inpatient: for post op care, hypoxia Quality Stroke Does the patient have a stroke diagnosis?: No VTE Prior VTE?: No VTE Risk Level:: Medical - moderate - high VTE Device Contraindication: N/A - Device Ordered VTE Drug Contraindication: Treatment Not Indicated
[2021-10-28] MEDS: methADONE HCl 20 MG/2 ML ORAL.CONC 39 MG PO (08:19)
[2021-10-28] MEDS: Albuterol/Iprat 2.5/0.5MG 3 ML AMPUL.NEB INHALE ×3 (08:25→19:33)
[2021-10-28] MEDS: 0.9 % Sodium Chloride Flush 3 ML SYRINGE IVFLUSH ×3 (08:25→20:50)
[2021-10-28] MEDS: Doxycycline Hyclate 100 MG in 0.9 % Sodium Chloride 250 ML 166.67 MG IV ×2 (11:06→22:12)
--- NOTE | 2021-10-28 13:26 | MHC.CM.PN ---
EMR REVIEWED, PER HOSPITALIST ANTIC PT WILL TRANSITION TO [facility] TOMORROW 10/29 AND BE READY FOR D/C BY MONDAY 10/30, CM MET W/PT AND PT'S NIECE PER HIS REQUEST AND PT AND NIECE PREFER [facility] FOR ACUTE RE[facility], CM HAS REQUESTED THEY START AUTH D/T INSURANCE AND WILL CONT TO MONITOR ANY CHANGE IN D/C NEEDS.
--- NOTE | 2021-10-28 13:56 | P.PNPL_ITS ---
Subjective Subjective Date of Service: 10/28/21 Interval history: FiO2 requirements improved essentially to baseline. Pulmonary and cardiac workup so far unrevealing. Objective Data Labs CBC & Chem 7: 10/28/21 06:04 10/27/21 06:14 Labs: Laboratory Results - last 24 hr 10/27/21 10/28/21 15:58 06:04 Hgb 8.1 L Hct 24.8 L B-Natriuretic Peptide 48 Review of Systems Cardiovascular: Reports dyspnea (At baseline) Respiratory: Reports dyspnea (At baseline) Physical Exam Vital Signs: Vital Signs: Last Vital Signs Temp 97.1 F 10/28/21 11:17 Pulse 89 10/28/21 11:42 Resp 20 10/28/21 11:42 BP 116/65 10/28/21 11:17 Pulse Ox 97 10/28/21 11:17 Oxygen Flow Rate 10.0 10/27/21 11:00 BMI result Body Mass Index 20.9 Const: General: no acute distress, alert and awake Eyes: Sclerae: sclerae normal EOM: EOMs intact bilaterally Neck: Neck: Yes no lymphadenopathy, Yes trachea midline and Yes supple Resp: Effort & Inspection: normal respiratory effort and no respiratory distress Auscultation: clear to auscultation bilaterally Cardio: Rate: regular rate Rhythm: regular rhythm Heart sounds: no gallops, no murmurs and no rubs GI: Palpation (GI): Soft to palpation and Other GI palpation findings present ( Nontender) Auscultation: normal bowel sounds Extrem: General: Yes no pedal edema, No clubbing and No cyanosis Procedures Date of Service Date of Service: 10/28/21 Assessment and Plan Assessment and plan (1) Severe chronic obstructive pulmonary disease: Status: Acute (2) Supplemental oxygen dependent: Status: Acute Plan Impression: 56-year-old gentleman with underlying severe COPD on supplemental oxygen 2-4 L admitted with a hip fracture and acute on chronic hypoxic respira tory failure coinciding with the, now FiO2 requirements improved to baseline. CT angio chest with no evidence of pulmonary emboli worsening infiltrates. BNP is negative. Likely resolved fat embolus after fracture of a long bone. Recommendations: Consider tapering down prednisone over the next several days. Now at baseline and can resume his home regimen. Will sign off. Time Spent With Patient Time: Total time spent is greater than 50% in coordination of care (as documented) at patient's floor/unit and/or counseling patient: Progress Note: Quality Stroke Does the patient have a stroke diagnosis?: No
[2021-10-29] VITALS (12 sets, daily range): BP systolic 110–125; BP diastolic 58–76; PULSE 72–101; RESP 16–20; TEMP 36.3–36.9; O2SAT 91–96
[2021-10-29] MEDS: Omeprazole 40 MG CAPSULE.DR PO ×2 (06:29→15:28)
[2021-10-29] MEDS: 0.9 % Sodium Chloride Flush 3 ML SYRINGE IVFLUSH ×3 (07:49→21:03)
[2021-10-29] MEDS: predniSONE 10 MG TABLET 30 MG PO (07:50)
[2021-10-29] MEDS: methADONE HCl 20 MG/2 ML ORAL.CONC 39 MG PO (07:50)
[2021-10-29] MEDS: HYDROmorphone HCl 0.5 MG/0.5 ML SYRINGE IVPUSH (08:03)
[2021-10-29] MEDS: Albuterol/Iprat 2.5/0.5MG 3 ML AMPUL.NEB INHALE ×3 (08:13→20:21)
--- NOTE | 2021-10-29 08:50 | HO.PM.IMPN ---
Subjective Subjective Date of Service: 10/29/21 Interval History: acute hypoxiemic respiratory failure Review of Systems Feels slightly better shortness of breath, denies any chest pain or abdominal pain nausea or vomiting ?hip pain soarness improving. Physical Exam Vital Signs: Vital Signs: Last Vital Signs Temp 97.9 F 10/29/21 07:55 Pulse 92 10/29/21 08:13 Resp 18 10/29/21 08:13 BP 125/70 10/29/21 07:55 Pulse Ox 91 L 10/29/21 07:55 Oxygen Flow Rate 10.0 10/27/21 11:00 BMI result Body Mass Index 20.9 Appearance: Alert.? Oriented X3.? not in distress.? cvs: rrr, [id number] , no murmur res: air netry fair but seems slightly diminshed at bases, no wheezing abd: no rebound or guarding ,nt, bs present. ext pulses present , no cyanosis . neuro: axo3 , nonfocal. Objective Data Active Medications Acetaminophen (Acetaminophen 325 Mg Tablet) 650 mg PO Q6H PRN PRN Reason: Pain, Mild (Pain Scale 1-3) Last Admin: 10/23/21 18:18 Dose: 650 mg Documented by: NICOLE Al Hydroxide/Mg Hydroxide (Magnesium Hydrox/Alum Hydrox 30 Ml Oral.Susp) 15 ml PO Q4H PRN PRN Reason: heartburn Albuterol/Ipratropium (Albuterol/Iprat 2.5/0.5mg 3 Ml Ampul.Neb) 3 ml INHALE RQ4H WHILE AWAKE [facility] Last Admin: 10/29/21 08:13 Dose: 3 ml Documented by: REYNA Albuterol/Ipratropium (Albuterol/Iprat 2.5/0.5mg 3 Ml Ampul.Neb) 1.5 ml INHALE Q2H PRN PRN Reason: Shortness of Breath Last Admin: 10/25/21 23:36 Dose: 1.5 ml Documented by: DAVID Enoxaparin Sodium (Enoxaparin Sodium 40 Mg/0.4 Ml Syringe) 40 mg SUBCUT Q24H [facility] Last Admin: 10/29/21 07:49 Dose: Not Given Documented by: MIRA Non-Admin Reason: Patient Refused Ferrous Sulfate (Ferrous Sulfate 300 Mg/5 Ml Liquid) 300 mg PO BIDWM [facility] Last Admin: 10/29/21 07:50 Dose: Not Given Documented by: MIRA Non-Admin Reason: Patient Refused Cefazolin Sodium/Dextrose (Ancef) 2 gm in 50 mls @ 100 mls/hr IV POSTOP [facility] Doxycycline Hyclate 100 mg/ (Sodium Chloride) 250 mls @ 166.67 mls/hr IV Q12H [facility] Last Infusion: 10/28/21 23:49 Dose: 0 mls/hr Documented by: HARMAN Magnesium Hydroxide (Milk Of Magnesia 30 Ml Oral.Susp) 30 ml PO DAILY PRN PRN Reason: Constipation Melatonin (Melatonin 3 Mg Tablet) 6 mg PO BEDTIME PRN PRN Reason: Insomnia Methadone HCl (Methadone Hcl 20 Mg/2 Ml Oral.Conc) 39 mg PO DAILY [facility] Last Admin: 10/29/21 07:50 Dose: 39 mg Documented by: MIRA Omeprazole (Omeprazole 40 Mg Capsule.Dr) 40 mg PO BID@0630,1630 [facility] Last Admin: 10/29/21 06:29 Dose: 40 mg Documented by: HARMAN Ondansetron HCl (Ondansetron Hcl 4 Mg/2 Ml Vial) 4 mg IVPUSH Q8H PRN PRN Reason: Nausea and Vomiting Ondansetron HCl (Ondansetron Hcl 4 Mg/2 Ml Vial) 4 mg IVPUSH ONCE PRN PRN Reason: Nausea and Vomiting Oxycodone HCl (Oxycodone Hcl Immed Release 5 Mg Tablet) 10 mg PO Q4H PRN PRN Reason: Pain, Moderate (Pain Scale 4-6 Last Admin: 10/27/21 19:55 Dose: 10 mg Documented by: FAUSTINO Prednisone (Prednisone 10 Mg Tablet) 30 mg PO DAILY [facility] Last Admin: 10/29/21 07:50 Dose: 30 mg Documented by: MIRA Sodium Chloride (0.9 % Sodium Chloride Flush 3 Ml Syringe) 3 ml IVFLUSH QSHIFT [facility] Last Admin: 10/29/21 07:49 Dose: 3 ml Documented by: MIRA Labs CBC & Chem 7: 10/28/21 06:04 10/27/21 06:14 Assessment and Plan (1) Acute and chronic respiratory failure with hypoxia: Status: Acute (2) Anemia: Status: Acute Plan 56 year old male with end stage COPD, hepc, chronic venous stasis here with mechanical fall and right hip fracture 1/ Right Hip fracture s/p operative repair on 10/23 -continue postoperative care -pain control and DVT prophylaxis as deemed appropriate by the Orthopedic surgery. 2/acute hypoxemic respiratory failure :COPD--end stage/pneumonia. cta -no pulm embolism , has ?infiltrate right lower lobe abg reviewed. cxr improving bnp normal continue nebs , steriods ,antibiotics, oxygen demand improved, oxygen demand improved to baseline. barium swallow seems fine pulm followup. 3/ Chronic leg edame --continue lasix 4/ GERD--PPI. 5.Possible acute blood loss anemia postop: repeat h/h similar in 8 range type and screen iron panel noted. patient denies any acute bleeding or melena 6/ Opioid Dependence--Methadone 7-Hep C, mild inrease in INR, possible underlying coagulopathy--geot FFP before surgery DVT prophylaxis--h/h stable , will start lovenox,.due to anemia ,scd inpatient: awaiting placement Quality Stroke Does the patient have a stroke diagnosis?: No VTE Prior VTE?: No VTE Risk Level:: Medical - moderate - high VTE Device Contraindication: N/A - Device Ordered VTE Drug Contraindication: Treatment Not Indicated
[2021-10-29] MEDS: Doxycycline Hyclate 100 MG in 0.9 % Sodium Chloride 250 ML 166.67 MG IV (11:44)
[2021-10-29] MEDS: Acetaminophen 325 MG TABLET 650 MG PO ×2 (15:27→22:46)
[2021-10-29] MEDS: oxyCODONE HCl Immed Release 5 MG TABLET 10 MG PO ×2 (15:27→22:46)
[2021-10-30] MEDS: oxyCODONE HCl Immed Release 5 MG TABLET 10 MG PO ×2 (02:34→08:08)
[2021-10-30 03:31] VITALS: BP 118/68; PULSE 94; RESP 18; TEMP 36.4; O2SAT 94
[2021-10-30] MEDS: Acetaminophen 325 MG TABLET 650 MG PO (05:00)
[2021-10-30] MEDS: Omeprazole 40 MG CAPSULE.DR PO (05:02)
[2021-10-30 07:23] VITALS: BP 125/67; PULSE 93; RESP 20; TEMP 37.2; O2SAT 95
[2021-10-30] MEDS: Albuterol/Iprat 2.5/0.5MG 3 ML AMPUL.NEB INHALE ×2 (07:30→11:19)
[2021-10-30 07:31] VITALS: PULSE 89; RESP 20; O2SAT 92
--- NOTE | 2021-10-30 07:52 | PM.DS ---
DS: Providers Provider Date of Service: 10/30/21 Date of admission: 10/22/21 12:26 Primary care physician: [facility] Consults: 10/22/21 12:25 Consult to Orthopedics Routine Consulting Provider: Herberth Arroyo Reason for consultation: right hip fracture Has provider been notified: No 10/24/21 09:57 Consult to Pulmonology Routine Consulting Provider: Justino Lazo Reason for consultation: COPD exacerbation, respiratory failure Has provider been notified: No DS: Diagnosis Discharge Diagnosis (1) Acute and chronic respiratory failure with hypoxia: Status: Acute (2) Anemia: Status: Acute DS: Summary Hospital Course Hospital Course: 56 year old male with opiate dependence, hep C, GERD, peripheral edema chronic venous stais,? chronic respiratory due to end stage COPD on home O2.? He has the habit of standing and leaning against a table to help him breath and was doing in the middle of the night when he felt asleep and fell ? and injured his right hip, Xray? shows?Acute, mildly angulated right intertrochanteric fracture--ortho is aware and will arrange for orperative repair. There is incidental potassium of 6 with normal creatinine and suspected hydrolyzed specimen. Hospital course: Patient was admitted to the hospital because of right hip fracture: Status post a fracture and right hip IMN-afterwards patient seems to be improving. Postop also had acute hypoxemic respiratory failure multifactorial probably related to COPD/atelectasis/possible pneumonia: Patient seems to be improved with IV steroids, IV antibiotics, now at his baseline O2 demand. Please complete the course of antibiotics, continue incentive spirometry and chest physiotherapy. Postop anemia: H&H is stable around 8.1, denies any min bleeding. Will switch him to p.o. antibiotics, monitor CBC and BMP outpatient in 1 week. Patient is to follow up outpatient with PCP. Above management discussed with the patient in detail length she understand and in agreement with the above plan, time spent 50 minutes and 50% time spent on counseling. Significant findings: As above. Procedures performed: None. Treatment and response: As above. Complications: None. Time Spent with Patient Time attestation: Total time spent providing and/or coordinating discharge services: Discharge coordination time: Greater than 30 minutes Quality: Safe Use of Opioids Does Pt have an Active Cancer Diagnosis on the Problem List?: No Quality: Stroke Does the patient have a stroke diagnosis?: No Physical Exam Vital Signs: Vital Signs: Last Vital Signs Temp 99.0 F 10/30/21 07:23 Pulse 89 10/30/21 07:31 Resp 20 10/30/21 07:31 BP 125/67 10/30/21 07:23 Pulse Ox 95 10/30/21 07:23 Oxygen Flow Rate 4 10/29/21 11:00 BMI result Body Mass Index 20.9 Appearance: Alert.? Oriented X3.? not in distress.? cvs: rrr, [id number] , no murmur res: air entry seems better, no rales or wheezing abd: no rebound or guarding ,nt, bs present. ext pulses present , no cyanosis . neuro: axo3 , nonfocal. DS: Data Additional Comments Additional comments: ?XR/XR chest 1V IMPRESSION: Clear lungs. Improved aeration at the right base. FL/FL barium swallow modified IMPRESSION: Unremarkable examination.? ? Discharge Plan Discharge Patient Disposition: er [facility] Discharge Diagnosis: acute hypoxiemic respiratory failure multifactorial , postop anemia Referrals: [facility] [Primary Care Provider] - 1 Week Ariel Garcia PA-C [Physician Retail Store Clerk] - 2 Weeks (11/07/2021 at 2pm ) Discharge Medications: New prednisone 10 mg Tablet 30 mg PO DAILY Qty: 6 0RF enoxaparin 40 mg/0.4 mL Syringe 40 mg subcut Q24H 42 Days Qty: 16.8 0RF cefuroxime axetil 500 mg Tablet 500 mg PO Q12H Qty: 8 0RF doxycycline hyclate 100 mg Tablet 100 mg PO Q12H Qty: 8 0RF ferrous sulfate [iron] 325 mg (65 mg iron) tablet 325 mg PO BID Qty: 60 0RF oxycodone 5 mg tablet 5 mg PO Q8H PRN (Reason: pain (scale score 4-6)) Qty: 10 0RF Continued Anoro Ellipta 62.5-25 mcg/actuation blister with device 1 puff inhalation DAILY 0RF albuterol sulfate 2.5 mg /3 mL (0.083 %) solution for nebulization 1 amp inhalation Q4H PRN (Reason: wheezing) 0RF albuterol sulfate [ProAir HFA] 90 mcg/actuation Hfa Aerosol Inhaler 2 puff INHALATION Q6H PRN (Reason: Respiratory Distress) 0RF methadone 10 mg/mL Concentrate 39 mg PO DAILY 0RF pantoprazole 40 mg tablet,delayed release (DR/EC) 40 mg PO DAILY 0RF Discharge Orders: Discharge Order (Routine); Ordered 10/30/21 Ordered By: Elissa Lozano Diet: advance to usual diet Activity on Discharge: As tolerated Stand Alone Forms: Patient Portal Discharge page Care Plan Goals: Patient was admitted to the hospital because of right hip fracture: Status post a fracture and right hip IMN-afterwards patient seems to be improving. Postop also had acute hypoxemic respiratory failure multifactorial probably related to COPD/atelectasis/possible pneumonia: Patient seems to be improved with IV steroids, IV antibiotics, now at his baseline O2 demand. Postop anemia: H&H is stable around 8.1, denies any min bleeding. Will switch him to p.o. antibiotics, monitor CBC and BMP outpatient in 1 week. Health Concerns: as above. Plan of Treatment: as above. Assessment: Gait training, strengthening, ADLs Continue lovenox for dvt ppx x4 weeks Keep dressing clean,dry and intact-no showering or tub baths Follow up with Orthopedics in 2 weeks Discharge Date/Time: 10/30/21 12:50
[2021-10-30] MEDS: predniSONE 10 MG TABLET 30 MG PO (08:08)
[2021-10-30] MEDS: methADONE HCl 20 MG/2 ML ORAL.CONC 39 MG PO (08:08)
[2021-10-30] MEDS: 0.9 % Sodium Chloride Flush 3 ML SYRINGE IVFLUSH (08:09)
[2021-10-30 10:05] LABS: COVID-19 Test Negative (Negative); IDNOW Serial# 16C4AD1C
[2021-10-30 11:00] VITALS: O2SAT 95
[2021-10-30 11:19] VITALS: PULSE 91; RESP 20; O2SAT 93
== END 2021-10-30 12:50 | disposition skilled nursing facility (03) | DRG 308 ==
LOC: HO.ED 10:43 → HO.EDOVER 12:47 → HO.S3 10-23 08:09
PROVIDERS: Anesthesiology; Internal Medicine Pulmonary Disease; Orthopaedic Surgery; Admitting Provider Internal Medicine; Emergency Provider Emergency Medicine; Visit Provider Internal Medicine
DX: S72.141A Displaced intertrochanteric fracture of right femur, initial encounter for closed fracture (principal); J96.21 Acute and chronic respiratory failure with hypoxia; D68.9 Coagulation defect, unspecified; D62 Acute posthemorrhagic anemia; I50.9 Heart failure, unspecified; Z99.81 Dependence on supplemental oxygen; F11.20 Opioid dependence, uncomplicated; W18.30XA Fall on same level, unspecified, initial encounter; Y92.009 Unspecified place in unspecified non-institutional (private) residence as the place of occurrence of the external cause; B19.20 Unspecified viral hepatitis C without hepatic coma; F17.210 Nicotine dependence, cigarettes, uncomplicated; J44.9 Chronic obstructive pulmonary disease, unspecified; K21.9 Gastro-esophageal reflux disease without esophagitis; Z20.822 Contact with and (suspected) exposure to COVID-19; Z71.6 Tobacco abuse counseling; Z79.52 Long term (current) use of systemic steroids; Z79.899 Other long term (current) drug therapy
CPT/HCPCS: 36415; 70450; 71045; 71275; 72125; 73502; 74230; 80048; 82607; 82728; 82746; 82803; 82947; 83540; 83880; 84132; 85007; 85014; 85018; 85025; 85027; 85610; 85730; 86850; 86900; 86901; 87635; 92611; 93005; 94640; 96365; 96366; 97110; 97116; 97162; 97166; 97530; 97535; 99285; C1713; C1769; J0610; J0690; J1170; J1650; J1940; J2795; J2920; P9073; Q9967

== ENCOUNTER 2021-11-23 08:04 | Outpatient (REF) | payer MEDICAID, SELFPAY | END 2021-11-23 08:05 | disposition home or self-care (01) | LOC: HO.HOSX 08:04 | PROVIDERS: Visit Provider Physician Assistant | DX: Z13.89 Encounter for screening for other disorder (principal) ==

== ENCOUNTER 2021-12-21 19:37 | Inpatient (IN) | payer MEDICAID, SELFPAY ==
--- NOTE | 2021-12-21 | ECG_ITS ---
Test Reason : SEPSIS Blood Pressure : / mmHG Vent. Rate : 092 BPM Atrial Rate : 092 BPM P-R Int : 126 ms QRS Dur : 076 ms QT Int : 324 ms P-R-T Axes : 075 067 058 degrees QTc Int : 400 ms Normal sinus rhythm Normal ECG When compared with ECG of 22-OCT-2021 10:32, No significant change was found Referred By: Generic ED Physician Electronically Signed By:KELSEY LOUIS
--- NOTE | ~2021-12-21 | XR_ITS ---
EXAMINATION: XR CHEST CLINICAL INFORMATION: Congestion COMPARISON: 10/27/2021 TECHNIQUE: 2 views of the chest were obtained. FINDINGS: The lungs are hyperexpanded. There is no focal consolidation, edema, or effusion. No pneumothorax. The cardiomediastinal silhouette is within normal limits. No acute osseous abnormality. XR/XR chest 2V IMPRESSION: No acute pulmonary finding.
[2021-12-21 19:47] VITALS: BP 124/82; PULSE 99; O2SAT 98
[2021-12-21 20:20] VITALS: BP 103/68; PULSE 98; RESP 26; TEMP 36.8; O2SAT 99; BMI 19.3
[2021-12-21 20:56] LABS: MANUAL DIFF FLAG NO
[2021-12-21 20:57] LABS: Basophils Percent Auto 0.1 % (0-2); Eosinophils Absolute Auto 0.1 X10*3/uL (0.0-0.4); Eosinophils Percent Auto 1.2 % (0-4); Hematocrit 35.9 % (42.0-52.0); Hemoglobin 11.7 g/dl (14.0-18.0); Imm Gran Abs Auto 0.02 X10*3/uL (0.00-0.03); Imm Gran Pct Auto 0.3 % (0.0-0.4); Lymphocytes Absolute Auto 0.9 X10*3/uL (1.2-4.9); Lymphocytes Percent Auto 13.5 % (20-40); Mean Corpuscular HGB Conc 32.6 g/dl (31.0-36.0); Mean Corpuscular Hemoglobin 26.6 pg (27.0-33.0); Mean Corpuscular Volume 81.6 fL (80.0-98.0); Mean Platelet Volume 9.1 fL (9.4-12.4); Monocytes Absolute Auto 0.6 X10*3/uL (0.1-1.2); Monocytes Percent Auto 8.6 % (2-11); Neutrophils Absolute Auto 5.3 x10*3/uL (2.0-8.3); Neutrophils Percent Auto 76.3 % (45-73); Red Cell Distribution Width 16.6 % (11.0-16.0); White Blood Count 6.9 X10*3/uL (4.8-10.8)
[2021-12-21 20:59] LABS: Platelet Count 66 X10*3/uL (160-400)
[2021-12-21 21:11] LABS: Influenza A Negative (Negative); Influenza B2 Negative (Negative)
[2021-12-21 21:12] LABS: COVID-19 Test Negative (Negative); IDNOW Serial# 55D5AD1C
[2021-12-21 21:19] LABS: Lactic Acid 0.5 mmol/L (0.5-2.0)
[2021-12-21 21:24] LABS: Alanine Aminotransferase 11 U/L (0-40); Albumin Level 3.3 g/dL (3.5-5.0); Alkaline Phosphatase 102 U/L (39-117); Anion Gap 10 (12-20); Aspartate Amino Transferase 17 U/L (5-37); Bilirubin Total 0.7 mg/dL (0.0-1.0); Blood Urea Nitrogen 14 mg/dL (9-16); Calcium 8.2 mg/dL (8.4-10.2); Carbon Dioxide 34 mmol/L (22-29); Chloride 100 mmol/L (96-108); Creatinine Clr Calc Pharmacy 85.6; Estimated Glomerular Filt Rate > 60; Glucose Random 95 mg/dL (60-115); Potassium 4.7 mmol/L (3.3-5.1); Sodium 139 mmol/L (135-145); Total Protein 6.8 g/dL (6.5-8.0)
[2021-12-21 21:30] LABS: Troponin-I High Sensitivity < 3.5 ng/L (<3.5-35.0)
--- NOTE | 2021-12-21 21:49 | ED_ITS ---
HPI - SOB/Dyspnea General Chief Complaint: Upper Respiratory Symptoms Stated Complaint: congestion Time Seen by Provider: 12/21/21 21:36 Source: patient Mode of arrival: EMS Limitations: no limitations History of Present Illness HPI Narrative: 56-year-old male who is brought to emergency department by ambulance for evaluation of shortness of breath for 4 days. Patient has a history of COPD and uses 4 L of oxygen via nasal cannula. He states for the past 2 days he has had difficulty breathing. He states that he has not been able to walk around his house secondary to shortness of breath. He has been using his inhalers 4 to 6 times a day and his nebulizer 4 times a day as well. The patient has a cough which is productive of thick, white and yellow mucus. He is also complaining of rhinorrhea, sore throat. He denied chest pain, nausea, vomiting, diarrhea, abdominal pain, frequency, urgency or dysuria. The patient has a history of heroin and oxycodone use disorder. He is currently in a methadone program. He told the nurse that he last used heroin yesterday. MD elicited complaint: shortness of breath Pertinent past history: COPD Onset (ago): day(s) (4) Context: recent illness (Rhinorrhea, sore throat and productive cough x4 days) and occurred during exertion Timing: constant Severity: severe Exacerbating factors: exertion, movement and coughing Relieving factors: nothing Known history of: COPD Associated symptoms: cough and sputum production Treatment prior to arrival: none Related Data Home oxygen amount: 4 liters Home Medications Medication Instructions Recorded Confirmed pantoprazole 40 mg tablet,delayed 40 mg PO DAILY 03/29/20 10/22/21 release umeclidinium 62.5 mcg-vilanterol 1 puff inhalation DAILY 02/12/21 10/22/21 25 mcg/actuation powdr for inhalation (Anoro Ellipta) albuterol sulfate 1 amp inhalation Q4H PRN wheezing 10/22/21 10/22/21 albuterol sulfate 90 mcg/actuation 2 puff inhalation Q6H PRN 10/22/21 10/22/21 aerosol inhaler (ProAir HFA) Respiratory Distress methadone 10 mg/mL oral concentrate 39 mg PO DAILY 10/29/21 10/29/21 Previous Rx's Medication Instructions Recorded enoxaparin 40 mg/0.4 mL 40 mg (0.4 mL) subcut Q24H 42 days 10/29/21 subcutaneous syringe #16.8 mL prednisone 10 mg tablet 30 mg PO DAILY #6 tabs 10/29/21 cefuroxime axetil 500 mg tablet 500 mg PO Q12H #8 tabs 10/30/21 doxycycline hyclate 100 mg tablet 100 mg PO Q12H #8 tabs 10/30/21 ferrous sulfate 325 mg (65 mg 325 mg PO BID #60 tabs 10/30/21 iron) tablet (iron) oxycodone 5 mg tablet 5 mg PO Q8H PRN pain (scale score 10/30/21 4-6) #10 tabs Allergies Allergy/AdvReac Type Severity Reaction Status Date / Time No Known Allergies Allergy Verified 02/13/21 14:54 Review of Systems Review of Systems: Yes all other systems are reviewed and are negative [facility] Past Medical History [facility] Narrative: Past medical history: COPD on 4 L via nasal cannula chronically, hepatitis-C, anemia, opiate use disorder in a methadone program, continues to use heroin. Social history: The patient states he stop smoking 1 year prior he smoked 2 packs of cigarettes per day times 30 years. He denies alcohol use. Patient does admit to using heroin recently and is currently in a methadone program. Medical History Erosive esophagitis HCV (hepatitis C virus) Latent tuberculosis Severe chronic obstructive pulmonary disease Family History Family History Mother HTN (hypertension) Brother COPD (chronic obstructive pulmonary disease) Social History Social History Household Members: Family Housing: House Do you presently have visiting nurse or other home services: No Alcohol intake: former Patient Tobacco Use Status: Current someday Tobacco user Tobacco use type: Cigarette Cigarettes Per Day: 10 Years Smoked: 30 Substance Use Type: Heroin Advance Directives: No service: No Current occupational status: unemployed Physical Exam Vital Signs: Vital Signs: Last Vital Signs Temp 98.3 F 12/21/21 20:20 Pulse 98 12/21/21 20:20 Resp 26 H 12/21/21 20:20 BP 103/68 12/21/21 20:20 Pulse Ox 99 12/21/21 20:20 O2 Del Method 12/21/21 20:20 Oxygen Flow Rate 4 12/21/21 20:20 BMI result Body Mass Index 19.3 Const: Other: Cachectic male patient tripoding, using accessory muscles to breathe, patient is able answer questions in full sentences Orientation/consciousness: oriented to person and oriented to place HEENT: Head: Yes normal to inspection, Yes normocephalic and Yes atraumatic Ears: external ears normal General nose exam: Normal external nose present Face and sinus: Yes normal facial exam Mouth: Normal oral and palatal mucosa present Throat: Yes posterior oropharynx normal Eyes: General: appearance normal, both eyes and all related structures Pupils: Equal, round and reactive pupils present Neck: Neck: Yes normal visual inspection, Yes no lymphadenopathy, Yes trachea midline and Yes supple Chest: Chest palpation & inspection: normal inspection of the chest and normal palpation of entire chest wall Resp: Other: Patient has diminished breath sounds bilaterally, there is rhonchi and rales at the bases, there is also expiratory wheezing Cardio: Rate: regular rate Rhythm: regular rhythm Heart sounds: S1 normal heart sound present, S2 normal heart sound present and no murmurs GI: Inspection: Yes normal to inspection Palpation (GI): Soft to palpation, nontender and no guarding Auscultation: normal bowel sounds : General: Yes no CVA tenderness Back/Spine/Pelvis: Back: no CVA tenderness Skin: General skin exam: no rashes or lesions noted Neuro: General: oriented to person and oriented to place Cranial nerves: Yes CN's II-XII intact bilaterally and Yes Equal, round and reactive pupils present Cognition (Neuro): normal cognition Motor exam (neuro): 5/5 motor strength present throughout Extrem: General: Yes normal to inspection Psych: Appearance: disheveled Speech and movement: Normal speech and movement present Affect: Anxious affect present Attitude: cooperative Thought process: Normal thought process present Course Course Course Narrative: 56-year-old male with history of COPD on 4 L of oxygen via nasal cannula chronically presents emergency department for evaluation of 4 days of shortness of breath, productive cough rhinorrhea and sore throat. The patient has been using his nebulizer 4 times a day in his inhaler 4 to 6 times a day with only minimal improvement of his symptoms. At the time evaluation, patient is tripoding in his using accessory muscles to breathe. He also appears to be anxious. Vital signs revealed tachypnea respiratory 26, O2 saturation of 99% on 4 L via nasal cannula. Lung exam revealed diminished breath sounds bilaterally with wheezing, rales and rhonchi at the bases. Laboratory evaluation was ordered. Chest x-ray will be obtained as well. Patient was ordered to get albuterol 5 mg via nebulizer, Solu-Medrol 125 mg IV, ceftriaxone 1 g IV and azithromycin 500 mg IV. The patient is anxious and refuses to hold the nebulizer mask against his face. Therefore the patient was given Ativan 0.5 mg IV to help control his anxiety so that we can give him an albuterol treatment. 2244: Laboratory evaluation revealed anemia with an H&H 11.7 and 35.9 [place] [id number] findings are chronic. BUN was elevated at 34. Troponin was below detectable limits 3.5. Lactate was 0.5. COVID-19 and influenza were negative. Chest x-ray revealed no acute disease. 2325: The patient only minimally cooperated with the albuterol nebulizer treatments. He did tell me that he is feeling better after the treatment. I will discuss admission with the covering hospitalist. MDM - SOB/Dyspnea Lab Data Result diagrams: 12/21/21 20:46 12/21/21 20:46 Labs: Lab Results 12/21/21 12/21/21 12/21/21 Range/Units 20:46 20:46 20:46 WBC 6.9 (4.8-10.8) X10*3/uL RBC 4.40 L D (4.60-5.80) X10*6/uL Hgb 11.7 L D (14.0-18.0) g/dl Hct 35.9 L D (42.0-52.0) % MCV 81.6 (80.0-98.0) fL MCH 26.6 L (27.0-33.0) pg MCHC 32.6 (31.0-36.0) g/dl RDW 16.6 H (11.0-16.0) % Plt Count 66 L (160-400) X10*3/uL MPV 9.1 L (9.4-12.4) fL Immature Gran % (Auto) 0.3 (0.0-0.4) % Neut % (Auto) 76.3 H (45-73) % Lymph % (Auto) 13.5 L (20-40) % [place] % (Auto) 8.6 (2-11) % Eos % (Auto) 1.2 (0-4) % Baso % (Auto) 0.1 (0-2) % Lymph # (Auto) 0.9 L (1.2-4.9) X10*3/uL [place] # (Auto) 0.6 (0.1-1.2) X10*3/uL Eos # (Auto) 0.1 (0.0-0.4) X10*3/uL Baso # (Auto) 0.0 (0.0-0.2) X10*3/uL Abs Immat Gran (auto) 0.02 (0.00-0.03) X10*3/uL Absolute Neuts (auto) 5.3 (2.0-8.3) x10*3/uL Absolute Nucleated RBC 0.000 (0.0-0.012) X10*3/uL Nucleated RBC % (auto) 0.0 (0.0-0.2) /100WBC Sodium 139 (135-145) mmol/L Potassium 4.7 (3.3-5.1) mmol/L Chloride 100 (96-108) mmol/L Carbon Dioxide 34 H (22-29) mmol/L Anion Gap 10 L (12-20) BUN 14 D (9-16) mg/dL Creatinine 0.75 (0.5-1.4) mg/dL Estim Creat Clear Calc 85.6 Estimated GFR > 60 Random Glucose 95 (60-115) mg/dL Lactic Acid (0.5-2.0) mmol/L Calcium 8.2 L (8.4-10.2) mg/dL Total Bilirubin 0.7 (0.0-1.0) mg/dL AST 17 (5-37) U/L ALT 11 (0-40) U/L Alkaline Phosphatase 102 (39-117) U/L Troponin I High Sens < 3.5 (<3.5-35.0) ng/L Total Protein 6.8 (6.5-8.0) g/dL Albumin 3.3 L (3.5-5.0) g/dL COVID-19 (TATIANNA) (Negative) COVID-19 Clin Com Influenza Type A (JARVIS) (Negative) Influenza Type B (JARVIS) (Negative) Influenza A & B Note 12/21/21 12/21/21 12/21/21 Range/Units 20:46 20:47 20:47 WBC (4.8-10.8) X10*3/uL RBC (4.60-5.80) X10*6/uL Hgb (14.0-18.0) g/dl Hct (42.0-52.0) % MCV (80.0-98.0) fL MCH (27.0-33.0) pg MCHC (31.0-36.0) g/dl RDW (11.0-16.0) % Plt Count (160-400) X10*3/uL MPV (9.4-12.4) fL Immature Gran % (Auto) (0.0-0.4) % Neut % (Auto) (45-73) % Lymph % (Auto) (20-40) % [place] % (Auto) (2-11) % Eos % (Auto) (0-4) % Baso % (Auto) (0-2) % Lymph # (Auto) (1.2-4.9) X10*3/uL [place] # (Auto) (0.1-1.2) X10*3/uL Eos # (Auto) (0.0-0.4) X10*3/uL Baso # (Auto) (0.0-0.2) X10*3/uL Abs Immat Gran (auto) (0.00-0.03) X10*3/uL Absolute Neuts (auto) (2.0-8.3) x10*3/uL Absolute Nucleated RBC (0.0-0.012) X10*3/uL Nucleated RBC % (auto) (0.0-0.2) /100WBC Sodium (135-145) mmol/L Potassium (3.3-5.1) mmol/L Chloride (96-108) mmol/L Carbon Dioxide (22-29) mmol/L Anion Gap (12-20) BUN (9-16) mg/dL Creatinine (0.5-1.4) mg/dL Estim Creat Clear Calc Estimated GFR Random Glucose (60-115) mg/dL Lactic Acid 0.5 (0.5-2.0) mmol/L Calcium (8.4-10.2) mg/dL Total Bilirubin (0.0-1.0) mg/dL AST (5-37) U/L ALT (0-40) U/L Alkaline Phosphatase (39-117) U/L Troponin I High Sens (<3.5-35.0) ng/L Total Protein (6.5-8.0) g/dL Albumin (3.5-5.0) g/dL COVID-19 (TATIANNA) Negative (Negative) COVID-19 Clin Com See Note Influenza Type A (JARVIS) Negative (Negative) Influenza Type B (JARVIS) Negative (Negative) Influenza A & B Note See Note Discharge Plan Discharge Clinical Impression: Acute exacerbation of chronic obstructive pulmonary disease Patient Disposition: Admitted As Inpatient Prescriptions: No Action Anoro Ellipta 62.5-25 mcg/actuation blister with device 1 puff inhalation DAILY albuterol sulfate 2.5 mg /3 mL (0.083 %) solution for nebulization 1 amp inhalation Q4H PRN (Reason: wheezing) albuterol sulfate [ProAir HFA] 90 mcg/actuation Hfa Aerosol Inhaler 2 puff INHALATION Q6H PRN (Reason: Respiratory Distress) prednisone 10 mg Tablet 30 mg PO DAILY Qty: 6 0RF methadone 10 mg/mL Concentrate 39 mg PO DAILY enoxaparin 40 mg/0.4 mL Syringe 40 mg subcut Q24H 42 Days Qty: 16.8 0RF cefuroxime axetil 500 mg Tablet 500 mg PO Q12H Qty: 8 0RF doxycycline hyclate 100 mg Tablet 100 mg PO Q12H Qty: 8 0RF ferrous sulfate [iron] 325 mg (65 mg iron) tablet 325 mg PO BID Qty: 60 0RF oxycodone 5 mg tablet 5 mg PO Q8H PRN (Reason: pain (scale score 4-6)) Qty: 10 0RF pantoprazole 40 mg tablet,delayed release (DR/EC) 40 mg PO DAILY
[2021-12-21] MEDS: methylPREDNISolone Sod Succ 125 MG/2 ML VIAL IVPUSH (22:10)
[2021-12-21] MEDS: Albuterol Sulfate (0.083%) 2.5 MG/3 ML VIAL.NEB 5 MG INHALE (22:32)
[2021-12-21] MEDS: cefTRIAXone sodium 1 GM in 0.9 % Sodium Chloride 50 ML IV (22:39)
--- NOTE | 2021-12-21 22:39 | PC.NURSE ---
md TO BEDSIDE- PT REFUSES CONTINUOUS NEB. PT ANXIOUS AND COUGHING WHITE/CLER SECRETIONS.
[2021-12-21] MEDS: LORazepam 2 MG/ML VIAL 0.5 MG IVPUSH (22:42)
[2021-12-21] MEDS: Albuterol Sulfate (0.083%) 2.5 MG/3 ML VIAL.NEB 10 MG INHALE (22:50)
--- NOTE | 2021-12-21 22:52 | PC.NURSE ---
Pt positioned in tripod for comfort.
[2021-12-21] MEDS: Azithromycin 500 MG in 0.9 % Sodium Chloride 250 ML 125 MG IV (23:38)
--- NOTE | 2021-12-21 23:53 | PM.IMHP ---
History of Present Illness Date of Service: 12/21/21 Chief Complaint: sob 56-year-old male with past medical history COPD, IV drug abuse, supplemental oxygen dependent on 4 L of oxygen at baseline, HCV, recent hip fracture status post repair on the right, who presents to the hospital with 4 day history of increased productive cough, increased shortness of breath, sputum production and worsening dyspnea on exertion. Patient reports no fever chills, reports pain on his right side, he denies any chest pain, no palpitations, no abdominal pain nausea or vomiting, no diarrhea constipation, no urinary symptoms and no lower extremity edema. No orthopnea or PND. On arrival to the ED patient hemodynamically stable with a slightly elevated respiratory rate Labs are significant for WBC count of 6.4, labs otherwise unremarkable. UA negative. UDS positive for opioids and fentanyl Chest x-ray showed no acute pulmonary findings. Patient will be admitted for further management Review of Systems Review of Systems: Yes all other systems are reviewed and are negative [facility] Medical History Erosive esophagitis HCV (hepatitis C virus) Latent tuberculosis Severe chronic obstructive pulmonary disease Family History Mother HTN (hypertension) Brother COPD (chronic obstructive pulmonary disease) Social History Household Members: Family Housing: House Do you presently have visiting nurse or other home services: No Alcohol intake: never Patient Tobacco Use Status: Former Tobacco user Tobacco use type: Cigarette Cigarettes Per Day: 10 Years Smoked: 30 Use of substances other than those prescribed or required for medical reasons: Yes Substance Use Type: Heroin Substance Use Frequency: Chronic Longstanding Last Used Substance: Days (ago) Any prior treatment program specific to substance use: No Advance Directives: No service: No Current occupational status: unemployed Meds Allergies Allergy/AdvReac Type Severity Reaction Status Date / Time No Known Allergies Allergy Verified 02/13/21 14:54 Active Medications: Current Medications Acetaminophen (Acetaminophen 325 Mg Tablet) 650 mg PO Q6H PRN PRN Reason: Pain, Mild (Pain Scale 1-3) Albuterol/Ipratropium (Albuterol/Iprat 2.5/0.5mg 3 Ml Ampul.Neb) 3 ml INHALE RQ4H PRN PRN Reason: Shortness of Breath/Wheezing Albuterol/Ipratropium (Albuterol/Iprat 2.5/0.5mg 3 Ml Ampul.Neb) 3 ml INHALE RQ4H WHILE AWAKE [facility] Docusate Sodium (Docusate Sodium 100 Mg Capsule) 100 mg PO DAILY PRN PRN Reason: Constipation Enoxaparin Sodium (Enoxaparin Sodium 40 Mg/0.4 Ml Syringe) 40 mg SUBCUT Q24H [facility] Azithromycin 500 mg/ Sodium (Chloride) 250 mls @ 125 mls/hr IV ONCE STA Stop: 12/22/21 00:17 Last Admin: 12/21/21 23:38 Dose: 125 mls/hr Azithromycin 500 mg/ Sodium (Chloride) 250 mls @ 125 mls/hr IV Q24H [facility] Methylprednisolone Sodium Succinate (Methylprednisolone Sod Succ 40 Mg/Ml Vial) 40 mg IVPUSH Q12H [facility] Ondansetron HCl (Ondansetron Hcl 4 Mg/2 Ml Vial) 4 mg IVPUSH Q8H PRN PRN Reason: Nausea and Vomiting Sodium Chloride (0.9 % Sodium Chloride Flush 3 Ml Syringe) 3 ml IVFLUSH QSHIFT [facility] Home Medications Medication Instructions Recorded Confirmed Last Taken Type pantoprazole 40 mg tablet,delayed 40 mg PO DAILY 03/29/20 10/22/21 Unknown History release umeclidinium 62.5 mcg-vilanterol 1 puff inhalation DAILY 02/12/21 10/22/21 Unknown History 25 mcg/actuation powdr for inhalation (Anoro Ellipta) albuterol sulfate 1 amp inhalation Q4H PRN wheezing 10/22/21 10/22/21 Unknown History albuterol sulfate 90 mcg/actuation 2 puff inhalation Q6H PRN 10/22/21 10/22/21 Unknown History aerosol inhaler (ProAir HFA) Respiratory Distress methadone 10 mg/mL oral concentrate 39 mg PO DAILY 10/29/21 10/29/21 Unknown History Physical Exam Vital Signs and Narrative: Vital Signs: Last Vital Signs Temp 98.3 F 12/21/21 20:20 Pulse 98 12/21/21 20:20 Resp 26 H 12/21/21 20:20 BP 103/68 12/21/21 20:20 Pulse Ox 99 06/29/22 20:20 O2 Del Method 12/21/21 20:20 Oxygen Flow Rate 4 12/21/21 20:20 BMI result Body Mass Index 19.3 Const: Other: Patient appears ill, cachectic General: cooperative and no acute distress Orientation/consciousness: patient oriented x3 Eyes: General: appearance normal, both eyes and all related structures Resp: Other: Crackles bilaterally Effort & Inspection: normal respiratory effort Cardio: Rate: regular rate Rhythm: regular rhythm GI: Palpation (GI): Soft to palpation Auscultation: normal bowel sounds Skin: General skin exam: no rashes or lesions noted Neuro: General: patient oriented x3 Cognition (Neuro): normal cognition Extrem: General: Yes normal to inspection and Yes no pedal edema Results Labs CBC and Chem 7: 12/22/21 04:59 12/22/21 04:59 Labs: Laboratory Results - last 24 hr 12/21/21 12/21/21 12/21/21 20:46 20:46 20:46 MCV 81.6 MCH 26.6 L MCHC 32.6 RDW 16.6 H Plt Count 66 L MPV 9.1 L Immature Gran % (Auto) 0.3 Neut % (Auto) 76.3 H Lymph % (Auto) 13.5 L [place] % (Auto) 8.6 Eos % (Auto) 1.2 Baso % (Auto) 0.1 Lymph # (Auto) 0.9 L [place] # (Auto) 0.6 Eos # (Auto) 0.1 Baso # (Auto) 0.0 Abs Immat Gran (auto) 0.02 Absolute Neuts (auto) 5.3 Absolute Nucleated RBC 0.000 Nucleated RBC % (auto) 0.0 Anion Gap 10 L Estim Creat Clear Calc 85.6 Estimated GFR > 60 Random Glucose 95 Lactic Acid Calcium 8.2 L Total Bilirubin 0.7 AST 17 ALT 11 Alkaline Phosphatase 102 Troponin I High Sens < 3.5 Total Protein 6.8 Albumin 3.3 L COVID-19 (TATIANNA) COVID-19 Clin Com Influenza Type A (JARVIS) Influenza Type B (JARVIS) Influenza A & B Note 12/21/21 12/21/21 12/21/21 20:46 20:47 20:47 MCV MCH MCHC RDW Plt Count MPV Immature Gran % (Auto) Neut % (Auto) Lymph % (Auto) [place] % (Auto) Eos % (Auto) Baso % (Auto) Lymph # (Auto) [place] # (Auto) Eos # (Auto) Baso # (Auto) Abs Immat Gran (auto) Absolute Neuts (auto) Absolute Nucleated RBC Nucleated RBC % (auto) Anion Gap Estim Creat Clear Calc Estimated GFR Random Glucose Lactic Acid 0.5 Calcium Total Bilirubin AST ALT Alkaline Phosphatase Troponin I High Sens Total Protein Albumin COVID-19 (TATIANNA) Negative COVID-19 Clin Com See Note Influenza Type A (JARVIS) Negative Influenza Type B (JARVIS) Negative Influenza A & B Note See Note Imaging Radiologist's Impressions: Impressions Chest X-Ray 12/21/21 21:11 IMPRESSION: No acute pulmonary finding. Assessment and Plan (1) Acute exacerbation of chronic obstructive pulmonary disease: Status: Acute (2) Acute and chronic respiratory failure with hypoxia: Status: Acute Plan 56-year-old male with past medical history of COPD on 4 L of oxygen at baseline presents to the hospital with shortness of breath, cough and sputum production found to be in COPD exacerbation # acute on chronic hypoxic respiratory failure - secondary to COPD exacerbation - no evidence of pneumonia - will treat COPD as below - monitor respiratory status - continue home oxygen as required # acute exacerbation of COPD - acute COPD exacerbation - treat with IV Solu-Medrol, DuoNeb p.r.n. as well as scheduled - azithromycin for COPD exacerbation - no evidence of pneumonia # heroin abuse - continue methadone DVT prophylaxis: Lovenox Given the acute hypoxic respiratory failure as well as COPD exacerbation and need for IV 7 Medrol patient will be admitted and will require a minimum 2 night hospital stay for further Quality Stroke Does the patient have a stroke diagnosis?: No VTE Prior VTE?: No VTE Risk Level:: Medical - moderate - high VTE Device Contraindication: Treatment Not Indicated VTE Drug Contraindication: N/A - Med Ordered
[2021-12-22] VITALS (10 sets, daily range): BP systolic 109–139; BP diastolic 67–94; PULSE 73–113; RESP 12–20; TEMP 36.2–36.9; O2SAT 93–100
[2021-12-22 01:21] LABS: Appearance Urine CLEAR; Color Urine DK YELLOW; Glucose Urine UA NEG (NEG); Leukocyte Esterase Urine NEG (NEG); Nitrite Urine NEG (NEG); Specific Gravity - Urine >= 1.030 (1.005-1.025); UACC Culture Trigger NO; Urine Blood 1+ (NEG); Urine Ketones NEG (NEG); Urine Protein 2+ MG/DL (NEG-TRACE)
[2021-12-22 01:27] LABS: Bacteria Urine 1+ /LPF; Granular Casts Urine 0-2 /LPF; Mucus Urine TRACE /LPF; Squamous Epithelial Cell Urine 1+ /LPF
[2021-12-22 01:36] LABS: Fentanyl, urine POSITIVE (Not Detect)
[2021-12-22 01:39] LABS: Amphetamine Screen Urine Not Detected (Not Detect); Barbiturates, Urine Not Detected (Not Detect); Cannabinoid Screen Urine Not Detected (Not Detect); Cocaine Screen Urine Not Detected (Not Detect); Opiate Screen Urine POSITIVE (Not Detect); Phencyclidine Screen Urine Not Detected (Not Detect)
--- NOTE | 2021-12-22 03:33 | PC.NURSE ---
Patient woke up requesting his nebulizer treatment that he refused earlier
[2021-12-22 05:21] LABS: Eosinophils Percent Auto 0.2 % (0-4); Hematocrit 34.4 % (42.0-52.0); Hemoglobin 11.1 g/dl (14.0-18.0); Imm Gran Abs Auto 0.03 X10*3/uL (0.00-0.03); Imm Gran Pct Auto 0.5 % (0.0-0.4); Lymphocytes Absolute Auto 0.3 X10*3/uL (1.2-4.9); Lymphocytes Percent Auto 4.5 % (20-40); MANUAL DIFF FLAG SCAN; Mean Corpuscular HGB Conc 32.3 g/dl (31.0-36.0); Mean Corpuscular Hemoglobin 26.4 pg (27.0-33.0); Mean Corpuscular Volume 81.9 fL (80.0-98.0); Mean Platelet Volume 9.4 fL (9.4-12.4); Monocytes Absolute Auto 0.1 X10*3/uL (0.1-1.2); Monocytes Percent Auto 1.2 % (2-11); Neutrophils Percent Auto 93.6 % (45-73); Red Cell Distribution Width 16.7 % (11.0-16.0); SCAN SMEAR FLAG 1; White Blood Count 6.4 X10*3/uL (4.8-10.8)
[2021-12-22 05:24] LABS: Platelet Count 55 X10*3/uL (160-400)
[2021-12-22 05:45] LABS: SLIDE REVIEW VERIFIED
[2021-12-22 05:47] LABS: Anion Gap 12 (12-20); Blood Urea Nitrogen 15 mg/dL (9-16); Calcium 8.4 mg/dL (8.4-10.2); Carbon Dioxide 30 mmol/L (22-29); Chloride 99 mmol/L (96-108); Creatinine Clr Calc Pharmacy 89.2; Estimated Glomerular Filt Rate > 60; Glucose Random 179 mg/dL (60-115); Potassium 4.7 mmol/L (3.3-5.1); Sodium 136 mmol/L (135-145)
[2021-12-22] MEDS: 0.9 % Sodium Chloride Flush 3 ML SYRINGE IVFLUSH (07:45)
--- NOTE | 2021-12-22 08:07 | PHA.MEDREC ---
Pharmacy Consult ? Medication Reconciliation Pharmacy has completed the medication reconciliation. Pt able to name most medications on his own; nurse entered room while I was doing a med rec and confirmed they are working on methadone verification form from [facility].
--- NOTE | 2021-12-22 08:39 | P.PNIM_ITS ---
Subjective Subjective Date of Service: 12/22/21 Interval History: f/u on copd exacerbation interval history: still sob, persistent cough, and wheezing Review of Systems no fever cough wheezing Physical Exam Vital Signs: Vital Signs: Last Vital Signs Temp 98.1 F 12/22/21 07:43 Pulse 91 12/22/21 07:43 Resp 20 12/22/21 07:43 BP 111/77 12/22/21 07:43 Pulse Ox 98 12/22/21 07:43 O2 Del Method 12/22/21 07:43 O2 Flow Rate 3 12/22/21 07:43 Oxygen Flow Rate 4 12/21/21 20:20 BMI result Body Mass Index 19.3 Const: Other: General: AO X 3, no acute distress Resp: diffuse rhonchin, decrease air entry, increase wob, wheezingl CVS: S1,S2,RRR GI: +BS, NT, no distention Skin: No rash Neuro: motor grossly intact Psych: appropriate affect Objective Data Active Medications Acetaminophen (Acetaminophen 325 Mg Tablet) 650 mg PO Q6H PRN PRN Reason: Pain, Mild (Pain Scale 1-3) Albuterol/Ipratropium (Albuterol/Iprat 2.5/0.5mg 3 Ml Ampul.Neb) 3 ml INHALE RQ4H PRN PRN Reason: Shortness of Breath/Wheezing Albuterol/Ipratropium (Albuterol/Iprat 2.5/0.5mg 3 Ml Ampul.Neb) 3 ml INHALE RQ4H WHILE AWAKE [facility] Docusate Sodium (Docusate Sodium 100 Mg Capsule) 100 mg PO DAILY PRN PRN Reason: Constipation Enoxaparin Sodium (Enoxaparin Sodium 40 Mg/0.4 Ml Syringe) 40 mg SUBCUT Q24H [facility] Last Admin: 12/22/21 01:51 Dose: Not Given Documented By: WILBERT Non-Admin Reason: Patient Refused Azithromycin 500 mg/ Sodium (Chloride) 250 mls @ 125 mls/hr IV Q24H [facility] Last Admin: 12/22/21 00:04 Dose: Not Given Documented By: WILBERT Non-Admin Reason: Previously Administered Methylprednisolone Sodium Succinate (Methylprednisolone Sod Succ 40 Mg/Ml Vial) 40 mg IVPUSH Q12H [facility] Last Admin: 12/22/21 01:51 Dose: Not Given Documented By: WILBERT Non-Admin Reason: Patient Refused Ondansetron HCl (Ondansetron Hcl 4 Mg/2 Ml Vial) 4 mg IVPUSH Q8H PRN PRN Reason: Nausea and Vomiting Pharmacy Consult (Consult Rx Perform Med Rec) 1 each MISCELLANE ONCE PRN PRN Reason: Consult order Sodium Chloride (0.9 % Sodium Chloride Flush 3 Ml Syringe) 3 ml IVFLUSH QSHIFT [facility] Last Admin: 12/22/21 07:45 Dose: 3 ml Documented By: SHELBY Labs CBC & Chem 7: 12/22/21 04:59 12/22/21 04:59 Labs: Laboratory Results - last 24 hr 12/21/21 12/21/21 12/21/21 20:46 20:46 20:46 MCV 81.6 MCH 26.6 L MCHC 32.6 RDW 16.6 H Plt Count 66 L MPV 9.1 L Immature Gran % (Auto) 0.3 Neut % (Auto) 76.3 H Lymph % (Auto) 13.5 L [place] % (Auto) 8.6 Eos % (Auto) 1.2 Baso % (Auto) 0.1 Lymph # (Auto) 0.9 L [place] # (Auto) 0.6 Eos # (Auto) 0.1 Baso # (Auto) 0.0 Abs Immat Gran (auto) 0.02 Absolute Neuts (auto) 5.3 Absolute Nucleated RBC 0.000 Nucleated RBC % (auto) 0.0 Smear Tech's Comments Anion Gap 10 L Estim Creat Clear Calc 85.6 Estimated GFR > 60 Random Glucose 95 Lactic Acid Calcium 8.2 L Total Bilirubin 0.7 AST 17 ALT 11 Alkaline Phosphatase 102 Troponin I High Sens < 3.5 Total Protein 6.8 Albumin 3.3 L Urine Color Urine Appearance Urine pH Ur Specific [place] Urine Protein Urine Glucose (UA) Urine Ketones Urine Blood Urine Nitrite Ur Leukocyte Esterase Urine RBC Urine WBC Ur Squamous Epith Cells Urine Bacteria Granular Casts Urine Mucus Urine Opiates Screen Urine Fentanyl Screen Ur Barbiturates Screen Ur Phencyclidine Scrn Ur Amphetamines Screen Urine Cocaine Screen U Marijuana (THC) Screen COVID-19 (TATIANNA) COVID-19 Clin Com Influenza Type A (JARVIS) Influenza Type B (JARVIS) Influenza A & B Note 12/21/21 12/21/21 12/21/21 20:46 20:47 20:47 MCV MCH MCHC RDW Plt Count MPV Immature Gran % (Auto) Neut % (Auto) Lymph % (Auto) [place] % (Auto) Eos % (Auto) Baso % (Auto) Lymph # (Auto) [place] # (Auto) Eos # (Auto) Baso # (Auto) Abs Immat Gran (auto) Absolute Neuts (auto) Absolute Nucleated RBC Nucleated RBC % (auto) Smear Tech's Comments Anion Gap Estim Creat Clear Calc Estimated GFR Random Glucose Lactic Acid 0.5 Calcium Total Bilirubin AST ALT Alkaline Phosphatase Troponin I High Sens Total Protein Albumin Urine Color Urine Appearance Urine pH Ur Specific [place] Urine Protein Urine Glucose (UA) Urine Ketones Urine Blood Urine Nitrite Ur Leukocyte Esterase Urine RBC Urine WBC Ur Squamous Epith Cells Urine Bacteria Granular Casts Urine Mucus Urine Opiates Screen Urine Fentanyl Screen Ur Barbiturates Screen Ur Phencyclidine Scrn Ur Amphetamines Screen Urine Cocaine Screen U Marijuana (THC) Screen COVID-19 (TATIANNA) Negative COVID-19 Clin Com See Note Influenza Type A (JARVIS) Negative Influenza Type B (JARVIS) Negative Influenza A & B Note See Note 12/22/21 12/22/21 12/22/21 01:15 01:15 04:59 MCV 81.9 MCH 26.4 L MCHC 32.3 RDW 16.7 H Plt Count 55 L MPV 9.4 Immature Gran % (Auto) 0.5 H Neut % (Auto) 93.6 H Lymph % (Auto) 4.5 L [place] % (Auto) 1.2 L Eos % (Auto) 0.2 Baso % (Auto) 0.0 Lymph # (Auto) 0.3 L [place] # (Auto) 0.1 Eos # (Auto) 0.0 Baso # (Auto) 0.0 Abs Immat Gran (auto) 0.03 Absolute Neuts (auto) 6.0 Absolute Nucleated RBC 0.000 Nucleated RBC % (auto) 0.0 Smear Tech's Comments VERIFIED Anion Gap Estim Creat Clear Calc Estimated GFR Random Glucose Lactic Acid Calcium Total Bilirubin AST ALT Alkaline Phosphatase Troponin I High Sens Total Protein Albumin Urine Color DK YELLOW Urine Appearance CLEAR Urine pH 6.0 Ur Specific [place] >= 1.030 H Urine Protein 2+ H Urine Glucose (UA) NEG Urine Ketones NEG Urine Blood 1+ H Urine Nitrite NEG Ur Leukocyte Esterase NEG Urine RBC 1-4 Urine WBC 1-4 Ur Squamous Epith Cells 1+ Urine Bacteria 1+ Granular Casts 0-2 Urine Mucus TRACE Urine Opiates Screen POSITIVE H Urine Fentanyl Screen POSITIVE H Ur Barbiturates Screen Not Detected Ur Phencyclidine Scrn Not Detected Ur Amphetamines Screen Not Detected Urine Cocaine Screen Not Detected U Marijuana (THC) Screen Not Detected COVID-19 (TATIANNA) COVID-19 Clin Com Influenza Type A (JARVIS) Influenza Type B (JARVIS) Influenza A & B Note 12/22/21 04:59 MCV MCH MCHC RDW Plt Count MPV Immature Gran % (Auto) Neut % (Auto) Lymph % (Auto) [place] % (Auto) Eos % (Auto) Baso % (Auto) Lymph # (Auto) [place] # (Auto) Eos # (Auto) Baso # (Auto) Abs Immat Gran (auto) Absolute Neuts (auto) Absolute Nucleated RBC Nucleated RBC % (auto) Smear Tech's Comments Anion Gap 12 Estim Creat Clear Calc 89.2 Estimated GFR > 60 Random Glucose 179 H D Lactic Acid Calcium 8.4 Total Bilirubin AST ALT Alkaline Phosphatase Troponin I High Sens Total Protein Albumin Urine Color Urine Appearance Urine pH Ur Specific [place] Urine Protein Urine Glucose (UA) Urine Ketones Urine Blood Urine Nitrite Ur Leukocyte Esterase Urine RBC Urine WBC Ur Squamous Epith Cells Urine Bacteria Granular Casts Urine Mucus Urine Opiates Screen Urine Fentanyl Screen Ur Barbiturates Screen Ur Phencyclidine Scrn Ur Amphetamines Screen Urine Cocaine Screen U Marijuana (THC) Screen COVID-19 (TATIANNA) COVID-19 Clin Com Influenza Type A (JARVIS) Influenza Type B (JARVIS) Influenza A & B Note Assessment and Plan (1) Acute exacerbation of chronic obstructive pulmonary disease: Status: Acute Assessment and Plan: 56-year-old male with past medical history of COPD on 4 L of oxygen at baseline presents to the hospital with shortness of breath, cough and sputum production found to be in COPD exacerbation # Acute on chronic hypoxic respiratory failure d/t COPD exacerbation -Bronchodidlators by Neb scheduled and PRN, O2, IV steroid # acute exacerbation of COPD #Chronic opioid dependence--Methadone DVT prophylaxis:? Lovenox Need for inpatient: treatment of exacerbation with IV steroid, frequent nebs and monitoring of response- Quality Stroke Does the patient have a stroke diagnosis?: No VTE Prior VTE?: No VTE Risk Level:: Medical - moderate - high VTE Device Contraindication: Treatment Not Indicated VTE Drug Contraindication: N/A - Med Ordered
[2021-12-22] MEDS: Albuterol/Iprat 2.5/0.5MG 3 ML AMPUL.NEB INHALE ×3 (08:58→19:50)
[2021-12-22] MEDS: methylPREDNISolone Sod Succ 40 MG/ML VIAL IVPUSH (11:26)
[2021-12-22] MEDS: methADONE HCl 20 MG/2 ML ORAL.CONC 40 MG PO (12:22)
[2021-12-22] MEDS: Omeprazole 20 MG CAPSULE.DR PO (12:22)
--- NOTE | 2021-12-22 14:16 | MHC.CM.PN ---
PT REPORTS HE LIVES AT HOME WITH HIS SIBLINGS AND PARENTS HE REPORTS HE IS MOSTLY INDEPENDENT WITH CARE BUT DOES NEED HELP AT TIMES HE IS IN THE PROCESS OF GETTING GROUND PRODUCTS DIRECTOR HOURS PT REPORTS HE IS ACTIVE JOSE J [employer] MMTP AND ALLIED [facility] CURRENTLY DELIVERS THE MED DAILY PT HAS A WHEEL CHAIR HE USES PRN PTS PCP IS AT [facility], HE DOES NOT REMEMBER THE NAME PT IS NOT COVID-19 VACCINATED CURRENT DC PLAN IS HOME WITH RESUMPTION OF SERVICES FAMILY TO TRANSPORT
[2021-12-22 16:52] LABS: Benzodiazepines Screen Urine Not Detected (Not Detect)
[2021-12-22] MEDS: Ferrous Sulfate 324 MG TABLET.DR 325 MG PO (20:26)
[2021-12-22] MEDS: Acetaminophen 325 MG TABLET 650 MG PO (20:29)
[2021-12-23] MEDS: methylPREDNISolone Sod Succ 40 MG/ML VIAL IVPUSH ×2 (00:07→10:25)
[2021-12-23] MEDS: Azithromycin 500 MG in 0.9 % Sodium Chloride 250 ML 125 MG IV (00:07)
[2021-12-23] MEDS: 0.9 % Sodium Chloride Flush 3 ML SYRINGE IVFLUSH (00:19)
--- NOTE | 2021-12-23 00:20 | PC.NURSE ---
PT C/O RIGHT HIP PAIN FROM PREVIOUS HIP SURGERY.HAD RECEIVED TYLENOL EARLIER BUT STATES IT DID NOT HELP. NOTIFIED.ORDER FOR TORADOL 15MG IV X 1 GIVEN.MED GIVEN WITH GOOD EFFECT.SR ON MONITOR.LUNGS CLEAR,DIM,O2 AT 3L,SAT 97%.HAS OCC CONGESTED NON PROD COUGH.NO RESP DISTRESS.VOIDING IN URINAL.
[2021-12-23 00:30] VITALS: BP 138/68; PULSE 83; RESP 14; TEMP 36.8; O2SAT 97
[2021-12-23] MEDS: Ketorolac Tromethamine 15 MG/ML VIAL IVPUSH (01:17)
[2021-12-23 04:50] VITALS: BP 156/79; PULSE 73; RESP 14; TEMP 36.7; O2SAT 98
[2021-12-23] MEDS: Omeprazole 20 MG CAPSULE.DR PO (06:00)
[2021-12-23 08:39] VITALS: BP 114/72; PULSE 96; RESP 16; TEMP 36.6; O2SAT 93
[2021-12-23] MEDS: Albuterol/Iprat 2.5/0.5MG 3 ML AMPUL.NEB INHALE (08:53)
[2021-12-23 08:54] VITALS: PULSE 67; RESP 20; O2SAT 96
--- NOTE | 2021-12-23 10:00 | P.DS_ITS ---
DS: Providers Provider Date of Service: 12/23/21 Date of admission: 12/21/21 23:47 Primary care physician: [facility] DS: Diagnosis Discharge Diagnosis (1) Acute exacerbation of chronic obstructive pulmonary disease: Status: Acute DS: Summary Hospital Course Hospital Course: Chief Complaint: sob 56-year-old male with past medical history COPD, IV drug abuse, supplemental oxygen dependent on 4 L of oxygen at baseline, HCV, recent hip fracture status post repair on the right, who presents to the hospital with 4 day history of increased productive cough, increased shortness of breath, sputum production and worsening dyspnea on exertion.? Patient reports no fever chills, reports pain on his right side, he denies any chest pain, no palpitations, no abdominal pain nausea or vomiting, no diarrhea constipation, no urinary symptoms and no lower extremity edema.? No orthopnea or PND.? On arrival to the ED patient hemodynamically stable with a slightly elevated respiratory rate Labs are significant for WBC count of 6.4, labs otherwise unremarkable.? UA negative.? UDS positive for opioids and fentanyl Chest x-ray showed no acute pulmonary findings.? Patient will be admitted for further management Hospital course: Patient was admitted and treated with IV steroid, bronchodilators by Neb and has singifiancantly improved and is comfortable going home, he is breathing easy. Will treate with Prednisone for 4 more days, to continue use of home Oxygen Time Spent with Patient Time attestation: Total time spent providing and/or coordinating discharge services: Discharge coordination time: Greater than 30 minutes Quality: Safe Use of Opioids Does Pt have an Active Cancer Diagnosis on the Problem List?: No Quality: Stroke Does the patient have a stroke diagnosis?: No Physical Exam Vital Signs: Vital Signs: Last Vital Signs Temp 97.9 F 12/23/21 08:39 Pulse 67 12/23/21 08:54 Resp 20 12/23/21 08:54 BP 114/72 12/23/21 08:39 Pulse Ox 93 12/23/21 08:39 O2 Del Method 12/23/21 08:39 O2 Flow Rate 2 12/23/21 08:39 Oxygen Flow Rate 4 12/21/21 20:20 BMI result Body Mass Index 19.3 DS: Data Data Completed and Pending Completed studies during hospitalization [Text1]: Procedures Reposition Right Upper Femur with Internal Fixation Device, Percutaneous Approach (10/22/21) Transfusion of Nonautologous Platelets into Peripheral Vein, Percutaneous Approach (10/22/21) Labs on day of discharge: Laboratory Results - last 24 hr 12/22/21 01:15 U Benzodiazepines Scrn Not Detected Preliminary micro results at discharge 12/21/21 20:49 Blood Culture - Preliminary Blood - Venous No growth after 24 hours. 12/21/21 20:46 Blood Culture - Preliminary Blood - Venous No growth after 24 hours. Discharge Plan Discharge Anticipated Discharge Date/Time: 12/23/21 09:59 Patient Disposition: Hospice - Home Discharge Diagnosis: COPD exacerbation Referrals: [place] [Primary Care Provider] - 1 Week Discharge Medications: New prednisone 20 mg tablet 40 mg PO DAILY Qty: 8 0RF Continued Anoro Ellipta 62.5-25 mcg/actuation blister with device 1 puff inhalation DAILY albuterol sulfate 2.5 mg /3 mL (0.083 %) solution for nebulization 1 amp inhalation Q4H PRN (Reason: wheezing) albuterol sulfate [ProAir HFA] 90 mcg/actuation Hfa Aerosol Inhaler 2 puff INHALATION Q6H PRN (Reason: Respiratory Distress) methadone 10 mg/mL Concentrate 40 mg PO DAILY ferrous sulfate [iron] 325 mg (65 mg iron) tablet 325 mg PO BID Qty: 60 0RF pantoprazole 40 mg tablet,delayed release (DR/EC) 40 mg PO DAILY Discharge Orders: Discharge Order (Routine); Ordered 12/23/21 Ordered By: Nabor Irene Diet: Advance to usual diet Activity on Discharge: As tolerated Stand Alone Forms: Patient Portal Discharge page Care Plan Goals: Full recovery from copd exacerbation Health Concerns: chronic respiratory failure due to COPD Plan of Treatment: prednisone as directed, use oxygen as before, avoid smoking, follow up with her primary care doctor within a week, call for appointment. Assessment: As above
[2021-12-23] MEDS: methADONE HCl 20 MG/2 ML ORAL.CONC 40 MG PO (10:25)
[2021-12-23] MEDS: Ferrous Sulfate 324 MG TABLET.DR 325 MG PO (10:25)
--- NOTE | 2021-12-23 10:55 | MHC.CM.PN ---
Received notification that patient will be discharge home. Patient will return hoem with resumption of services through [facility]. Family will transport patient home. Continue to monitor for d/c needs.
== END 2021-12-23 12:54 | disposition home or self-care (01) | DRG 140 ==
LOC: HO.ED 23:33 → HO.EDOVER 12-22 00:12
PROVIDERS: Admitting Provider Internal Medicine; Emergency Provider Emergency Medicine Emergency Medical Services; Visit Provider Internal Medicine
DX: J44.1 Chronic obstructive pulmonary disease with (acute) exacerbation (principal); J96.21 Acute and chronic respiratory failure with hypoxia; Z99.81 Dependence on supplemental oxygen; F11.20 Opioid dependence, uncomplicated; Z20.822 Contact with and (suspected) exposure to COVID-19; Z86.15 Personal history of latent tuberculosis infection; Z87.891 Personal history of nicotine dependence; Z79.52 Long term (current) use of systemic steroids; Z79.899 Other long term (current) drug therapy
CPT/HCPCS: 36415; 71046; 80048; 80053; 80307; 81001; 83605; 84484; 85025; 87040; 87502; 87635; 93005; 96365; 96375; 99285; J0456; J0696; J1885; J2060; J2920; J2930

== ENCOUNTER 2022-02-13 16:48 | Emergency (ER) | payer MEDICAID, SELFPAY ==
--- NOTE | ~2022-02-13 | XR_ITS ---
EXAMINATION: XR CHEST CLINICAL INFORMATION: Wheezing COMPARISON: Chest x-ray 12/21/2021 TECHNIQUE: Frontal view of the chest was obtained. FINDINGS: Lungs appear hyperinflated. No airspace consolidation. No pleural effusion or pneumothorax. Normal cardiomediastinal silhouette and pulmonary vascularity. No evidence of pulmonary edema. No acute osseous injury. XR/XR chest 1V IMPRESSION: 1. No acute pulmonary process. 2. Hyperinflation of the lungs.
--- NOTE | 2022-02-13 17:08 | ECG_ITS ---
Test Reason : GENERAL MEDICAL Blood Pressure : / mmHG Vent. Rate : 082 BPM Atrial Rate : 082 BPM P-R Int : 138 ms QRS Dur : 082 ms QT Int : 352 ms P-R-T Axes : 079 068 041 degrees QTc Int : 411 ms Normal sinus rhythm Normal ECG When compared with ECG of 21-DEC-2021 20:58, No significant change was found Referred By: Kita Fischer Electronically Signed By:HUMZA SHARMA
[2022-02-13 17:09] VITALS: BP 141/81; BP 150/89; PULSE 91; PULSE 95; RESP 16; TEMP 36.8; O2SAT 96; O2SAT 97; BMI 19.1
--- NOTE | 2022-02-13 17:13 | ED_ITS ---
HPI - Psych General Chief Complaint: General Medical Stated Complaint: HALLUCINATION Time Seen by Provider: 02/13/22 16:57 Source: patient, EMS and old records reviewed Mode of arrival: EMS Limitations: no limitations History of Present Illness HPI Narrative: 56 yo male with history of chronic respiratory failure on 2L NC at baseline, severe COPD, active IVDA, hepatitis C, hx right hip fracture who presents to the ER from home via EMS for evaluation of visual hallucinations that started yesterday. He reports seeing people, cats and dogs that aren't there. He reports a history of similar hallucinations in the past when he used to smoke crack but denies using crack lately. He admits to ongoing IVDA, using 4-5 bags per day and also taking his 50 mg of methadone per day. He is worried he may have an infection and that might be what is causing his hallucinations. He denies fever, chills, urinary symptoms, N/V/D, abdominal pain. He reports chronic chest tightness and that he thinks he needs a neb treatment. Denies productive cough or SOB. MD complaint: hallucinations Onset (ago): day(s) (1) Duration: getting worse History of same: Yes Relieving factors: none Exacerbating factors: drug use Context: recent drug abuse Associated psychiatric symptoms: visual hallucinations Treatments prior to arrival: none Related Data Home Medications Medication Instructions Recorded Confirmed pantoprazole 40 mg tablet,delayed 40 mg PO DAILY 03/29/20 12/22/21 release umeclidinium 62.5 mcg-vilanterol 1 puff inhalation DAILY 02/12/21 12/22/21 25 mcg/actuation powdr for inhalation (Anoro Ellipta) albuterol sulfate 2.5 mg/3 mL 1 amp inhalation Q4H PRN wheezing 10/22/21 12/22/21 (0.083 %) solution for nebulization albuterol sulfate 90 mcg/actuation 2 puff inhalation Q6H PRN 10/22/21 12/22/21 aerosol inhaler (ProAir HFA) Respiratory Distress methadone 10 mg/mL oral concentrate 40 mg PO DAILY 10/29/21 12/22/21 Previous Rx's Medication Instructions Recorded ferrous sulfate 325 mg (65 mg 325 mg PO BID #60 tabs 10/30/21 iron) tablet (iron) prednisone 20 mg tablet 40 mg PO DAILY #8 tabs 12/23/21 Allergies Allergy/AdvReac Type Severity Reaction Status Date / Time No Known Allergies Allergy Verified 02/13/22 17:09 [facility] Past Medical History Medical History Erosive esophagitis HCV (hepatitis C virus) Latent tuberculosis Severe chronic obstructive pulmonary disease Family History Family History Mother HTN (hypertension) Brother COPD (chronic obstructive pulmonary disease) Social History Social History Household Members: Family Housing: House Do you presently have visiting nurse or other home services: No Alcohol intake: never Patient Tobacco Use Status: Former Tobacco user Tobacco use type: Cigarette Cigarettes Per Day: 10 Years Smoked: 30 Substance Use Type: Heroin Advance Directives: Yes Advance Directives on File: Yes Advance Directives Date on File: 11/16/21 service: No Current occupational status: unemployed Physical Exam Vital Signs: Vital Signs: Last Vital Signs Temp 98.2 F 02/13/22 17:09 Pulse 87 02/13/22 20:38 Resp 16 02/13/22 20:38 BP 141/81 H 02/13/22 17:09 Pulse Ox 96 02/13/22 17:09 O2 Del Method 02/13/22 17:09 Oxygen Flow Rate 2 02/13/22 17:09 BMI result Body Mass Index 19.1 Appearance: Alert. Oriented X3. Chronically ill appearing, frail, appears older than stated age. Eyes: Pupils equal, round and reactive to light. ENT: Pharynx normal. Neck: Normal inspection. Neck supple. CVS: Normal heart rate and rhythm. Pulses normal. Respiratory: No respiratory distress. Breath sounds with faint end expiratory wheezes. Abdomen: Soft and nontender. +BS x4 Skin: Skin warm and dry. Normal skin color. Normal skin turgor. No rashes. Extremities: Chronic venous stasis changes, dry skin. trace swelling of the feet, equal and symmetrical. no calf tenderness. bilateral UE with evidence of track mendes and recent IVDA Neuro: Oriented X 3. No motor deficit. No sensory deficit. Generalized w eakness, nonfocal Course Course Course Narrative: 56-year-old chronically ill male with a history of severe COPD on 3 L nasal cannula at baseline, hepatitis-C, ongoing IV drug abuse as well as methadone use who presents to the ER with new onset visual hallucinations since yesterday. He is concern for infection. He has no other signs or symptoms of infection. He arrives to the ER hemodynamically stable saturating well on his baseline O2. Will get infectious workup, but concerned this is drug related. Reevaluation(s) Reevaluation #1: Lab workup so far is unremarkable. No leukocytosis. COVID negative. VBG with well compensated hypercarbic, hypoxic respiratory failure, baseline pCO2 appears to be 90. Awaiting urinalysis/ utox. Reevaluation #2: UA is negative for infection. Positive for opiates and fentanyl. Patient has no UTI. His workup is unremarkable aside from positive U tox. At this time he is stable for discharge home, advised against IV drug use as this is likely cause of his hallucinations. He is alert and oriented. He is not suicidal. No role for crisis evaluation. [facility] - Psych Medical Records Attestation: I reviewed the patient's medical records. Lab Data Attestation: I reviewed the patient's lab results. Result diagrams: 02/13/22 17:35 02/13/22 17:35 Labs: Lab Results 02/13/22 02/13/22 02/13/22 Range/Units 17:35 17:35 17:35 WBC 4.9 (4.8-10.8) X10*3/uL RBC 4.49 L (4.60-5.80) X10*6/uL Hgb 11.7 L (14.0-18.0) g/dl Hct 36.2 L (42.0-52.0) % MCV 80.6 (80.0-98.0) fL MCH 26.1 L (27.0-33.0) pg MCHC 32.3 (31.0-36.0) g/dl RDW 15.9 (11.0-16.0) % Plt Count 73 L D (160-400) X10*3/uL MPV 9.8 (9.4-12.4) fL Immature Gran % (Auto) 0.2 (0.0-0.4) % Neut % (Auto) 80.0 H (45-73) % Lymph % (Auto) 13.1 L (20-40) % [place] % (Auto) 5.7 (2-11) % Eos % (Auto) 0.8 (0-4) % Baso % (Auto) 0.2 (0-2) % Lymph # (Auto) 0.6 L (1.2-4.9) X10*3/uL [place] # (Auto) 0.3 (0.1-1.2) X10*3/uL Eos # (Auto) 0.0 (0.0-0.4) X10*3/uL Baso # (Auto) 0.0 (0.0-0.2) X10*3/uL Abs Immat Gran (auto) 0.01 (0.00-0.03) X10*3/uL Absolute Neuts (auto) 3.9 (2.0-8.3) x10*3/uL Absolute Nucleated RBC 0.000 (0.0-0.012) X10*3/uL Nucleated RBC % (auto) 0.0 (0.0-0.2) /100WBC VBG pH (7.32-7.43) VBG pCO2 mmHg VBG pO2 mmHg VBG HCO3 (22-26) mmol/L VBG O2 Saturation % VBG Base Excess mmol/L Sodium 143 (135-145) mmol/L Potassium 4.7 (3.3-5.1) mmol/L Chloride 97 (96-108) mmol/L Carbon Dioxide 38 H (22-29) mmol/L Anion Gap 13 (12-20) BUN 18 H (9-16) mg/dL Creatinine 0.74 (0.5-1.4) mg/dL Estim Creat Clear Calc 83.2 Estimated GFR > 60 Random Glucose 93 D (60-115) mg/dL Calcium 9.5 D (8.4-10.2) mg/dL Magnesium 1.7 (1.6-2.6) mg/dL Total Bilirubin 1.2 H (0.0-1.0) mg/dL Direct Bilirubin 0.7 H (0.0-0.5) mg/dL AST 39 H D (5-37) U/L ALT 35 (0-40) U/L Alkaline Phosphatase 107 (39-117) U/L Troponin I High Sens 4.1 (<3.5-35.0) ng/L B-Natriuretic Peptide 51 (<100) pg/mL Total Protein 7.2 (6.5-8.0) g/dL Albumin 3.8 (3.5-5.0) g/dL TSH (0.32-4.0) uIU/mL Free T4 (0.71-1.85) ng/dL Urine Color Urine Appearance Urine pH (5.0-8.0) Ur Specific Stopover (1.005-1.025) Urine Protein (Neg-Trace) mg/dL Urine Glucose (UA) (Negative) mg/dL Urine Ketones (Negative) mg/dL Urine Blood (Negative) Urine Nitrite (Negative) Ur Leukocyte Esterase (Negative) Urine Opiates Screen (Not Detect) Urine Fentanyl Screen (Not Detect) Ur Barbiturates Screen (Not Detect) Ur Phencyclidine Scrn (Not Detect) Ur Amphetamines Screen (Not Detect) U Benzodiazepines Scrn (Not Detect) Urine Cocaine Screen (Not Detect) U Marijuana (THC) Screen (Not Detect) Ethyl Alcohol < 10 mg/dL COVID-19 (ATTIANNA) (Negative) COVID-19 Clin Com 02/13/22 02/13/22 02/13/22 Range/Units 17:35 17:39 17:45 WBC (4.8-10.8) X10*3/uL RBC (4.60-5.80) X10*6/uL Hgb (14.0-18.0) g/dl Hct (42.0-52.0) % MCV (80.0-98.0) fL MCH (27.0-33.0) pg MCHC (31.0-36.0) g/dl RDW (11.0-16.0) % Plt Count (160-400) X10*3/uL MPV (9.4-12.4) fL Immature Gran % (Auto) (0.0-0.4) % Neut % (Auto) (45-73) % Lymph % (Auto) (20-40) % [place] % (Auto) (2-11) % Eos % (Auto) (0-4) % Baso % (Auto) (0-2) % Lymph # (Auto) (1.2-4.9) X10*3/uL [place] # (Auto) (0.1-1.2) X10*3/uL Eos # (Auto) (0.0-0.4) X10*3/uL Baso # (Auto) (0.0-0.2) X10*3/uL Abs Immat Gran (auto) (0.00-0.03) X10*3/uL Absolute Neuts (auto) (2.0-8.3) x10*3/uL Absolute Nucleated RBC (0.0-0.012) X10*3/uL Nucleated RBC % (auto) (0.0-0.2) /100WBC VBG pH 7.33 (7.32-7.43) VBG pCO2 90 mmHg VBG pO2 38 mmHg VBG HCO3 48 H (22-26) mmol/L VBG O2 Saturation 55.0 % VBG Base Excess 17.9 mmol/L Sodium (135-145) mmol/L Potassium (3.3-5.1) mmol/L Chloride (96-108) mmol/L Carbon Dioxide (22-29) mmol/L Anion Gap (12-20) BUN (9-16) mg/dL Creatinine (0.5-1.4) mg/dL Estim Creat Clear Calc Estimated GFR Random Glucose (60-115) mg/dL Calcium (8.4-10.2) mg/dL Magnesium (1.6-2.6) mg/dL Total Bilirubin (0.0-1.0) mg/dL Direct Bilirubin (0.0-0.5) mg/dL AST (5-37) U/L ALT (0-40) U/L Alkaline Phosphatase (39-117) U/L Troponin I High Sens (<3.5-35.0) ng/L B-Natriuretic Peptide (<100) pg/mL Total Protein (6.5-8.0) g/dL Albumin (3.5-5.0) g/dL TSH 0.07 L (0.32-4.0) uIU/mL Free T4 1.54 (0.71-1.85) ng/dL Urine Color Urine Appearance Urine pH (5.0-8.0) Ur Specific Stopover (1.005-1.025) Urine Protein (Neg-Trace) mg/dL Urine Glucose (UA) (Negative) mg/dL Urine Ketones (Negative) mg/dL Urine Blood (Negative) Urine Nitrite (Negative) Ur Leukocyte Esterase (Negative) Urine Opiates Screen (Not Detect) Urine Fentanyl Screen (Not Detect) Ur Barbiturates Screen (Not Detect) Ur Phencyclidine Scrn (Not Detect) Ur Amphetamines Screen (Not Detect) U Benzodiazepines Scrn (Not Detect) Urine Cocaine Screen (Not Detect) U Marijuana (THC) Screen (Not Detect) Ethyl Alcohol mg/dL COVID-19 (TATIANNA) Negative (Negative) COVID-19 Clin Com See Note 02/13/22 02/13/22 Range/Units 19:54 19:54 WBC (4.8-10.8) X10*3/uL RBC (4.60-5.80) X10*6/uL Hgb (14.0-18.0) g/dl Hct (42.0-52.0) % MCV (80.0-98.0) fL MCH (27.0-33.0) pg MCHC (31.0-36.0) g/dl RDW (11.0-16.0) % Plt Count (160-400) X10*3/uL MPV (9.4-12.4) fL Immature Gran % (Auto) (0.0-0.4) % Neut % (Auto) (45-73) % Lymph % (Auto) (20-40) % [place] % (Auto) (2-11) % Eos % (Auto) (0-4) % Baso % (Auto) (0-2) % Lymph # (Auto) (1.2-4.9) X10*3/uL [place] # (Auto) (0.1-1.2) X10*3/uL Eos # (Auto) (0.0-0.4) X10*3/uL Baso # (Auto) (0.0-0.2) X10*3/uL Abs Immat Gran (auto) (0.00-0.03) X10*3/uL Absolute Neuts (auto) (2.0-8.3) x10*3/uL Absolute Nucleated RBC (0.0-0.012) X10*3/uL Nucleated RBC % (auto) (0.0-0.2) /100WBC VBG pH (7.32-7.43) VBG pCO2 mmHg VBG pO2 mmHg VBG HCO3 (22-26) mmol/L VBG O2 Saturation % VBG Base Excess mmol/L Sodium (135-145) mmol/L Potassium (3.3-5.1) mmol/L Chloride (96-108) mmol/L Carbon Dioxide (22-29) mmol/L Anion Gap (12-20) BUN (9-16) mg/dL Creatinine (0.5-1.4) mg/dL Estim Creat Clear Calc Estimated GFR Random Glucose (60-115) mg/dL Calcium (8.4-10.2) mg/dL Magnesium (1.6-2.6) mg/dL Total Bilirubin (0.0-1.0) mg/dL Direct Bilirubin (0.0-0.5) mg/dL AST (5-37) U/L ALT (0-40) U/L Alkaline Phosphatase (39-117) U/L Troponin I High Sens (<3.5-35.0) ng/L B-Natriuretic Peptide (<100) pg/mL Total Protein (6.5-8.0) g/dL Albumin (3.5-5.0) g/dL TSH (0.32-4.0) uIU/mL Free T4 (0.71-1.85) ng/dL Urine Color Yellow Urine Appearance Clear Urine pH 7.0 (5.0-8.0) Ur Specific Stopover 1.020 (1.005-1.025) Urine Protein Trace (Neg-Trace) mg/dL Urine Glucose (UA) Negative (Negative) mg/dL Urine Ketones Trace (Negative) mg/dL Urine Blood Negative (Negative) Urine Nitrite Negative (Negative) Ur Leukocyte Esterase Negative (Negative) Urine Opiates Screen POSITIVE H (Not Detect) Urine Fentanyl Screen POSITIVE H (Not Detect) Ur Barbiturates Screen Not Detected (Not Detect) Ur Phencyclidine Scrn Not Detected (Not Detect) Ur Amphetamines Screen Not Detected (Not Detect) U Benzodiazepines Scrn Not Detected (Not Detect) Urine Cocaine Screen Not Detected (Not Detect) U Marijuana (THC) Screen Not Detected (Not Detect) Ethyl Alcohol mg/dL COVID-19 (TATIANNA) (Negative) COVID-19 [employer] Com ECG Data Attestation: I personally reviewed and interpreted this ECG as follows: ECG interpretation date: 02/13/22 ECG interpretation time: 19:43 Prior ECG tracings: available for review Interpretation: normal sinus rhythm, HR 82 bpm, normal AL interval, No ST segment elevations or depressions Critical Care Time Critical Care Time Critical Care Time: No Discharge Plan Discharge Clinical Impression: Visual hallucinations Patient Disposition: Home, Self-Care Instructions: Hallucinations (ED), Opioid Use Disorder (ED) Additional Instructions: Your lab workup today was unremarkable. There is no sign of infection in your workup. Your hallucinations are due to your drug use. Stop using IV heroin. Continue your methadone. If you develop new or worsening symptoms call 911 or come back to the ER for further evaluation. Prescriptions: No Action Anoro Ellipta 62.5-25 mcg/actuation blister with device 1 puff inhalation DAILY albuterol sulfate 2.5 mg /3 mL (0.083 %) solution for nebulization 1 amp inhalation Q4H PRN (Reason: wheezing) albuterol sulfate [ProAir HFA] 90 mcg/actuation Hfa Aerosol Inhaler 2 puff INHALATION Q6H PRN (Reason: Respiratory Distress) methadone 10 mg/mL Concentrate 40 mg PO DAILY ferrous sulfate [iron] 325 mg (65 mg iron) tablet 325 mg PO BID Qty: 60 0RF prednisone 20 mg tablet 40 mg PO DAILY Qty: 8 0RF pantoprazole 40 mg tablet,delayed release (DR/EC) 40 mg PO DAILY
--- NOTE | 2022-02-13 17:16 | PC.NURSE ---
Pt comes in via EMS from home with complaints of visual hallucinations x 1 day. Pt has a PMHX of using crack/cocaine as well as a current IVDA of 4-5 bags of heroin daily while utilizing the methadone clinic. Pt is A&Ox4, states he has been seeing people. Pt has BLE redness and dry skin which he states is chronic in nature. Pt has 2L O2 at baseline for PMHX of COPD. Plan for labs, UA, CXR. Call hunter within reach. will continue to monitor.
[2022-02-13 17:53] LABS: Venous Blood Gas Refer to POC result
[2022-02-13 17:53] LABS: VBG Base Excess 17.9 mmol/L; VBG HCO3 48 mmol/L (22-26); VBG pCO2 90 mmHg; VBG pH 7.33 (7.32-7.43); VBG pO2 38 mmHg
[2022-02-13 17:56] LABS: Basophils Percent Auto 0.2 % (0-2); PLT CLUMP 1; Red Cell Distribution Width 15.9 % (11.0-16.0); SCAN SMEAR FLAG 1
[2022-02-13 17:57] LABS: Eosinophils Percent Auto 0.8 % (0-4); Hematocrit 36.2 % (42.0-52.0); Hemoglobin 11.7 g/dl (14.0-18.0); Imm Gran Abs Auto 0.01 X10*3/uL (0.00-0.03); Imm Gran Pct Auto 0.2 % (0.0-0.4); Lymphocytes Absolute Auto 0.6 X10*3/uL (1.2-4.9); Lymphocytes Percent Auto 13.1 % (20-40); Mean Corpuscular HGB Conc 32.3 g/dl (31.0-36.0); Mean Corpuscular Hemoglobin 26.1 pg (27.0-33.0); Mean Corpuscular Volume 80.6 fL (80.0-98.0); Mean Platelet Volume 9.8 fL (9.4-12.4); Monocytes Absolute Auto 0.3 X10*3/uL (0.1-1.2); Monocytes Percent Auto 5.7 % (2-11); Neutrophils Absolute Auto 3.9 x10*3/uL (2.0-8.3); Red Blood Count 4.49 X10*6/uL (4.60-5.80)
[2022-02-13 17:59] LABS: COVID-19 Test Negative (Negative); IDNOW Serial# 16C4AD1C
[2022-02-13 18:01] LABS: Platelet Count 73 X10*3/uL (160-400)
[2022-02-13 18:02] LABS: Alanine Aminotransferase 35 U/L (0-40); Albumin Level 3.8 g/dL (3.5-5.0); Alkaline Phosphatase 107 U/L (39-117); Anion Gap 13 (12-20); Aspartate Amino Transferase 39 U/L (5-37); Bilirubin Direct 0.7 mg/dL (0.0-0.5); Bilirubin Total 1.2 mg/dL (0.0-1.0); Blood Urea Nitrogen 18 mg/dL (9-16); Calcium 9.5 mg/dL (8.4-10.2); Carbon Dioxide 38 mmol/L (22-29); Chloride 97 mmol/L (96-108); Creatinine Clr Calc Pharmacy 83.2; Estimated Glomerular Filt Rate > 60; Ethanol < 10 mg/dL; Glucose Random 93 mg/dL (60-115); MANUAL DIFF FLAG NO; Magnesium 1.7 mg/dL (1.6-2.6); Potassium 4.7 mmol/L (3.3-5.1); Sodium 143 mmol/L (135-145); Total Protein 7.2 g/dL (6.5-8.0); White Blood Count 4.9 X10*3/uL (4.8-10.8)
[2022-02-13 18:06] LABS: B Type Natriuretic Peptide 51 pg/mL (<100); Troponin-I High Sensitivity 4.1 ng/L (<3.5-35.0)
[2022-02-13 18:22] LABS: TSH reflex Free T4 0.07 uIU/mL (0.32-4.0)
[2022-02-13 18:58] LABS: Free T4 (Free Thyroxine) 1.54 ng/dL (0.71-1.85)
[2022-02-13 20:02] LABS: Appearance Urine Clear; Color Urine Yellow; Glucose Urine UA Negative (Negative); Leukocyte Esterase Urine Negative (Negative); Nitrite Urine Negative (Negative); Urine Blood Negative (Negative); Urine Ketones Trace mg/dL (Negative); Urine Protein Trace mg/dL (Neg-Trace)
[2022-02-13 20:23] LABS: Amphetamine Screen Urine Not Detected (Not Detect); Barbiturates, Urine Not Detected (Not Detect); Benzodiazepines Screen Urine Not Detected (Not Detect); Cannabinoid Screen Urine Not Detected (Not Detect); Cocaine Screen Urine Not Detected (Not Detect); Fentanyl, urine POSITIVE (Not Detect); Opiate Screen Urine POSITIVE (Not Detect); Phencyclidine Screen Urine Not Detected (Not Detect)
[2022-02-13] MEDS: Albuterol/Iprat 2.5/0.5MG 3 ML AMPUL.NEB INHALE (20:37)
[2022-02-13 20:38] VITALS: PULSE 87; RESP 16; O2SAT 95
--- NOTE | 2022-02-13 21:26 | PC.NURSE ---
CALL OUT TO [facility] @6900 SPOKE TO ISIDORO WHO SAID THE PATIENT WILL BE TRANSPORTED BACK HOME WITHIN THE HOUR
== END 2022-02-14 02:10 | disposition home or self-care (01) ==
PROVIDERS: Physician Assistant; Emergency Provider Internal Medicine
DX: R44.1 Visual hallucinations (principal); J96.11 Chronic respiratory failure with hypoxia; Z99.81 Dependence on supplemental oxygen; F19.10 Other psychoactive substance abuse, uncomplicated; F11.20 Opioid dependence, uncomplicated; J44.9 Chronic obstructive pulmonary disease, unspecified; B19.20 Unspecified viral hepatitis C without hepatic coma; F17.210 Nicotine dependence, cigarettes, uncomplicated; Z20.822 Contact with and (suspected) exposure to COVID-19; Z79.899 Other long term (current) drug therapy; Z71.6 Tobacco abuse counseling
CPT/HCPCS: 36415; 71045; 80048; 80076; 80307; 81003; 82077; 82803; 83735; 83880; 84439; 84443; 84484; 85025; 87635; 93005; 94640; 99285

== ENCOUNTER 2022-05-23 16:15 | Inpatient (IN) | payer MEDICAID, SELFPAY ==
[2022-05-23] VITALS (9 sets, daily range): BP systolic 106–123; BP diastolic 41–72; PULSE 100–118; RESP 16–30; TEMP 36.9; O2SAT 52–92; BMI 19.5
--- NOTE | ~2022-05-23 | CT_ITS ---
EXAMINATION: CT ANGIOGRAM OF THE CHEST WITH AND WITHOUT CONTRAST (CT PULMONARY ANGIOGRAM FOR PE) CLINICAL INFORMATION: Reason for Exam severely hypoxic, elevated dimer COMPARISON: Chest x-ray performed earlier the same date, chest CT 11/11/2021 TECHNIQUE: Prior to contrast administration, noncontrast localization images were obtained. Subsequently, multidetector volumetric imaging was performed from the thoracic inlet to below the diaphragms following the administration of 65 mL Omnipaque 350 intravenous contrast. No contrast reaction reported Sagittal, coronal, and MIP oblique sagittal reformatted images were obtained on the CT workstation, uploaded to PACS, and reviewed. This CT examination was performed using dose optimization techniques as appropriate, variously including the following: *Automated exposure control *Adjustment of mA and/or kV according to patient size (this includes techniques or standardized protocols for targeted exams where dose is matched to indication/reason for exam; i.e. extremities or head) *Use of iterative reconstruction technique Total exam dose-length product 264 mGy-cm FINDINGS: QUALITY OF STUDY/CONTRAST BOLUS: Satisfactory. PULMONARY ARTERIES: No central or segmental pulmonary emboli. THORACIC AORTA: No aneurysm or dissection. LUNG: Diffuse small airways wall thickening bilaterally with extensive bilateral tree in bud pulmonary nodules. Dense airspace consolidation with air bronchograms in the left lower lobe and smaller areas airspace consolidation posterior right lower lobe, lingula and medial right middle lobe. Small left upper lobe calcified granuloma. Scattered small pulmonary nodules and/or endobronchial mucous plugging. No pneumothorax. Small amount of mucus, secretions or debris in the left mainstem bronchus. Additional endobronchial secretions or debris within right lower lobe bronchi. Mild bronchiectasis. PLEURA: Small left pleural effusion. MEDIASTINUM: Normal heart size. No pericardial effusion. No appreciable coronary artery vascular calcification. Mildly enlarged right hilar, subcarinal and AP window lymph nodes measuring 1.3, 1.1, and 1.2 cm in short axis dimension respectively, nonspecific and presumably reactive. No evidence of septal bowing or right heart strain. CHEST WALL/AXILLA: No axillary or internal mammary lymphadenopathy. OSSEOUS STRUCTURES: No acute or suspicious osseous abnormality. UPPER ABDOMEN: Mildly atrophic left kidney with cortical thinning slightly diminished left nephrogram. Mild fullness of the left renal collecting system. Spleen is enlarged, incompletely imaged. Upper abdominal viscera otherwise grossly unremarkable. No reflux of contrast into the hepatic veins to suggest elevated right heart pressures. CT/CT angio chest PE protocol IMPRESSION: 1. No evidence of pulmonary embolus. 2. Diffuse small airways wall thickening with extensive bilateral tree-in-bud pulmonary nodules with bilateral airspace consolidation most extensively in the left lower lobe consistent with pneumonia and accompanying endobronchial spread of infection. 3. Small left pleural effusion. 4. Mild mediastinal and right hilar lymphadenopathy, presumably reactive. 5. Splenomegaly VTE: negative
--- NOTE | ~2022-05-23 | XR_ITS ---
EXAMINATION: XR CHEST CLINICAL INFORMATION: Shortness of breath and COPD COMPARISON: 02/13/2022 TECHNIQUE: Frontal view of the chest was obtained. FINDINGS: Development of airspace consolidation in the left lung base partially obscuring the left hemidiaphragm. Blunted left costophrenic angle, possibly small left pleural effusion. No right pleural effusion. No other dense airspace consolidation. No pneumothorax. There are diffusely increased reticular/reticulonodular markings within the mid lower portions of both lungs. Normal cardiomediastinal silhouette. No acute osseous injury. XR/XR chest 1V IMPRESSION: 1. Development of airspace consolidation in the left lung base with possible small left pleural effusion. Findings consistent with pneumonia in the appropriate clinical setting. 2. Diffusely increased reticular/reticulonodular markings in the mid and lower portions of both lungs. Findings may be due to atypical infection.
--- NOTE | ~2022-05-23 | XR_ITS ---
EXAMINATION: XR CHEST CLINICAL INFORMATION: Hypoxia. COMPARISON: May 23, 2022. TECHNIQUE: Portable AP view of the chest was obtained. XR/XR chest 1V FINDINGS/IMPRESSION: Previously seen left lower lobe consolidation has significantly improved, although a small patchy left basilar densities suggest residual infiltrate and/or atelectasis. Previously seen diffuse interstitial prominence has markedly improved. No gross effusion or pneumothorax is seen. The heart appears normal in size. The mediastinum, diaphragm, bones and soft tissues appear unremarkable.
--- NOTE | ~2022-05-23 | XR_ITS ---
EXAMINATION: XR HIP, RIGHT CLINICAL INFORMATION: Pain. COMPARISON: Radiograph of the right hip 10/22/2021. TECHNIQUE: Two views of the right hip. FINDINGS: Right femoral stem and interlocking hip pin with a horizontally oriented screw along the distal femoral stem. No evidence of hardware failure or periprosthetic fracture. Callus formation and bone remodeling around a healing right femoral intertrochanteric fracture. No unexpected foreign bodies. No significant soft tissue abnormality. XR/XR hip RT min 2V IMPRESSION: 1. Healing right femoral intertrochanteric fracture. 2. No evidence of hardware failure or periprosthetic fracture.
--- NOTE | ~2022-05-23 | XR_ITS ---
EXAMINATION: XR CHEST CLINICAL INFORMATION: Hypoxia. COMPARISON: Chest x-ray 06/22/2022. CT of chest 05/29/2022 TECHNIQUE: Frontal portable view of the chest was obtained. 2:38 PM FINDINGS: Persistent patchy and linear airspace opacities in the left lung base similar prior studies. Right lung base is normally aerated. No pulmonary vascular congestion. No significant pleural effusion or pneumothorax. Heart size is normal. Cardiac and mediastinal contours are normal. XR/XR chest 1V IMPRESSION: Persistent patchy and linear airspace opacities at the left lung base similar prior chest x-ray 06/22/2022.
--- NOTE | ~2022-05-23 | CT_ITS ---
EXAMINATION: CT ANGIOGRAM OF THE CHEST WITH AND WITHOUT CONTRAST (CT PULMONARY ANGIOGRAM FOR PE) CLINICAL INFORMATION: Reason for Exam hypoxia COMPARISON: CT chest 05/23/2022 TECHNIQUE: Prior to contrast administration, noncontrast localization images were obtained. Subsequently, multidetector volumetric imaging was performed from the thoracic inlet to below the diaphragms following the administration of 65 mL Omnipaque 350 intravenous contrast. No contrast reaction reported Sagittal, coronal, and MIP oblique sagittal reformatted images were obtained on the CT workstation, uploaded to PACS, and reviewed. This CT examination was performed using dose optimization techniques as appropriate, variously including the following: *Automated exposure control *Adjustment of mA and/or kV according to patient size (this includes techniques or standardized protocols for targeted exams where dose is matched to indication/reason for exam; i.e. extremities or head) *Use of iterative reconstruction technique Total exam dose-length product 231 mGy-cm FINDINGS: QUALITY OF STUDY/CONTRAST BOLUS: Satisfactory. PULMONARY ARTERIES: No evidence of pulmonary emboli. THORACIC AORTA: No aneurysm or dissection. LUNG: Redemonstration of the bronchiectasis mostly affecting the lower lobes with bronchial wall thickening. There is continued dense consolidation with bronchograms at both lung bases, left worse than right. There is continuing extensive tree-in-bud opacities in the lungs bilaterally but these have improved since prior study 05/23/2022. Lower lobes continue to be more affected than the upper lobes. PLEURA: Small volume dependent right pleural effusion. Moderate volume dependent left pleural effusion. MEDIASTINUM: Normal heart size. No pericardial effusion. No hilar or mediastinal lymphadenopathy. No evidence of septal bowing or right heart strain. CHEST WALL/AXILLA: No axillary or internal mammary lymphadenopathy. OSSEOUS STRUCTURES: No acute or suspicious osseous abnormality. UPPER ABDOMEN: Unremarkable. No reflux of contrast into the hepatic veins to suggest elevated right heart pressures. CT/CT angio chest PE protocol IMPRESSION: 1. No evidence of pulmonary embolism. 2. Redemonstration of bronchiectasis with bronchial wall thickening and consolidation at both lung bases. 3. Persistent extensive tree-in-bud opacities in the lungs bilaterally but these have improved since prior study 05/23/2022. Dense consolidation at both lung bases. 4. Bilateral pleural effusions 5. VTE: negative
--- NOTE | ~2022-05-23 | XR_ITS ---
EXAMINATION: XR CHEST CLINICAL INFORMATION: Hypoxia and cough. COMPARISON: Chest x-ray 05/29/2022 TECHNIQUE: Frontal view of the chest was obtained. FINDINGS: The lungs are hyperinflated with platelike atelectasis left lung base. Heart size and pulmonary vascularity is normal. No gross bony abnormality seen. XR/XR chest 1V IMPRESSION: Hyperinflated lungs with bandlike atelectasis left lung base. It has significant improved since 05/29/2022
--- NOTE | 2022-05-23 16:25 | ECG_ITS ---
Test Reason : SOB Blood Pressure : / mmHG Vent. Rate : 108 BPM Atrial Rate : 108 BPM P-R Int : 120 ms QRS Dur : 078 ms QT Int : 308 ms P-R-T Axes : 080 054 051 degrees QTc Int : 412 ms Sinus tachycardia RSR' or QR pattern in V1 suggests right ventricular conduction delay Borderline ECG When compared with ECG of 13-FEB-2022 17:34, Heart rate has increased Referred By: Yesenia Reynolds Electronically Signed By:NAHID COLLIER MD
[2022-05-23] MEDS: Magnesium Sulfate/H2O 2 GM/50 ML PIGGYBACK IV (16:48)
[2022-05-23] MEDS: methylPREDNISolone Sod Succ 125 MG/2 ML VIAL IVPUSH (16:48)
--- NOTE | 2022-05-23 16:52 | ED_ITS ---
HPI - SOB/Dyspnea General Chief Complaint: Dyspnea Stated Complaint: SOB Source: patient and EMS Mode of arrival: EMS Limitations: altered mental status History of Present Illness HPI Narrative: Patient comes to the emergency room complaining of shortness of breath for the last couple of days. Patient is known to have COPD, uses 4 L at home. When EMS arrived, they reported that the patient was given himself a neb treatment. But he does not tolerate the mask over his face so he was doing a blow-by. Also, his oxygen was not on his face, oxygen saturation was in the mid 60s with his nasal cannula off his nose. Patient denies chest pain. On arrival to the emergency room, patient's oxygen saturation is 65% on 4 L. Patient was switched to a non-rebreather, the oxygen saturation improved to 70% on 15 L. Patient is now on BiPAP, oxygen saturation improved to 88%. Patient is awake, alert, states that if need be he is agreeable to get intubated Related Data Home Medications Medication Instructions Recorded Confirmed pantoprazole 40 mg tablet,delayed 40 mg PO DAILY 03/29/20 12/22/21 release umeclidinium 62.5 mcg-vilanterol 1 puff inhalation DAILY 02/12/21 12/22/21 25 mcg/actuation powdr for inhalation (Anoro Ellipta) albuterol sulfate 2.5 mg/3 mL 1 amp inhalation Q4H PRN wheezing 10/22/21 12/22/21 (0.083 %) solution for nebulization albuterol sulfate 90 mcg/actuation 2 puff inhalation Q6H PRN 10/22/21 12/22/21 aerosol inhaler (ProAir HFA) Respiratory Distress methadone 10 mg/mL oral concentrate 40 mg PO DAILY 10/29/21 12/22/21 Previous Rx's Medication Instructions Recorded ferrous sulfate 325 mg (65 mg 325 mg PO BID #60 tabs 10/30/21 iron) tablet (iron) prednisone 20 mg tablet 40 mg PO DAILY #8 tabs 12/23/21 Allergies Allergy/AdvReac Type Severity Reaction Status Date / Time No Known Allergies Allergy Verified 02/13/22 17:09 Review of Systems Review of Systems: Constitutional : No Weight loss, No Fever, No Chills, No Night Sweats, No Fatigue, No Malaise ENT/Mouth : No Hearing loss, No Ear Pain, No Nasal Congestion, No Sinus Pain, No Hoarseness, No sore throat, No Rhinorrhea, No Swallowing Difficulty Eyes: No Eye Pain, No Swelling, No Redness, No Foreign Body, No Discharge, No Vision Changes Cardiovascular : No Chest Pain, No SOB, No Dyspnea on Exertion, No Orthopnea, No Edema, No Palpitations Respiratory : Complaining of wheezing, severe shortness of breath Gastrointestinal : No Nausea, No Vomiting, No Diarrhea, No Constipation, No abdominal Pain, No Hematochezia, No Melena Genitourinary : no irregular bleeding, No Dysuria, No Urinary Frequency, No Hematuria, No Urinary Incontinence, No Urgency, No Flank Pain, No Urinary Flow Changes, No Hesitancy Musculoskeletal : No joint pain, No Myalgias, No Joint Swelling Skin : No Skin Lesions, No rash Neuro : No Weakness, No Numbness, No Paresthesias, No Loss of Consciousness, No Dizziness, No Headache Psych : No Anxiety/Panic, No Depression, No SI/HI/AH/VH, No Social Issues, Heme/Lymph: No Bruising, No Bleeding,No Lymphadenopathy Endocrine : No Polyuria, No Polydipsia, No Temperature Intolerance PMFSH Past Medical History Medical History Erosive esophagitis HCV (hepatitis C virus) Latent tuberculosis Severe chronic obstructive pulmonary disease Family History Family History Mother HTN (hypertension) Brother COPD (chronic obstructive pulmonary disease) Social History Social History Household Members: Family Housing: House Do you presently have visiting nurse or other home services: No Alcohol intake: unknown Patient Tobacco Use Status: Former Tobacco user Tobacco use type: Cigarette Cigarettes Per Day: 10 Years Smoked: 30 Smoked in Last 30 Days: No Use of substances other than those prescribed or required for medical reasons: No Substance Use Type: Heroin Advance Directives: Yes Advance Directives on File: Yes Advance Directives Date on File: 11/16/21 service: No Current occupational status: unemployed Physical Exam Vital Signs: Vital Signs: Last Vital Signs Temp 98.5 F 05/23/22 17:08 Pulse 118 H 05/23/22 21:41 Resp 30 H 05/23/22 21:41 BP 106/56 L 05/23/22 18:46 Pulse Ox 91 L 05/23/22 21:41 O2 Del Method 05/23/22 21:41 Oxygen Flow Rate 4 05/23/22 17:08 BMI result Body Mass Index 19.5 Const: Other: Appearance: Alert. Oriented X3. Ill-appearing, cachectic Eyes: Pupils equal, round and reactive to light. ENT: Pharynx normal. Neck: Normal inspection. Neck supple. No lymph nodes noted. No crepitus CVS: Normal heart rate and rhythm. Pulses normal. Normal S1 and S2 Respiratory: Bilateral wheezing, crackles, respiratory rate 20, oxygen saturation 88% on BiPAP w FiO2 80% Abdomen: Soft and nontender. No rigidity. No distention. Skin: Skin warm and dry. Normal skin color. Normal skin turgor. Extremities: No lower extremity edema. No Lacerations. No Rash Neuro: Oriented X 3. No motor deficit. No sensory deficit. Moving all extremities. No slurred speech. CN 2 through 12 grossly intact Psych: calm, cooperative, normal affect Course Course Course Narrative: I discussed with the patient that there is a possibility that he may have to be intubated. Patient states that if need be he is agreeable to be intubated. We are avoiding to intubate the patient at this time, patient is responding well to BiPAP. Oxygen saturation remains at 88-92%. It is unlikely that patient will tolerate getting off BiPAP any time soon. Patient will likely be admitted to the ICU. All of patient's labs and imaging are pending. Patient is empirically being treated with IV antibiotics. Patient also receive Solu-Med rol, magnesium, hour long nebulization treatment. Patient was started on a BiPAP, oxygen saturation remained between 88 and 92%. We attempted to wean off the patient after couple of hours, patient did not tolerate CPAP, patient kept the saturating to low 80s. Patient was placed back on BiPAP. CT scan for pulmonary embolism is still pending. So far, patient has not had any hypotensive events, lactic acid is 2.4. 30 mL/kilogram bolus not indicated at this time. 21:00, at this time, CT scan still running behind, patient has not been able to get the CT scan to rule out pulmonary embolism. Patient saturating in the high 80s low 90s on BiPAP. 23:35, CTA shows no pulmonary embolism or pneumothorax. Patient remains on BiPAP, oxygenating between 87-89%. Urinalysis tested positive for fentanyl and opiates Until now, patient has not had any episodes of hypotension, lactic acid 2.0 I discussed the patient with , patient being admitted Medications Administered Discontinued Medications Generic Name Dose Route Start Last Admin Trade Name Freq PRN Reason Stop Dose Admin Albuterol Sulfate 10 mg 05/23/22 16:37 05/23/22 16:53 Albuterol Sulfate (0.083%) 2.5 Mg/3 Ml Vial.Neb INHALE 05/23/22 16:38 10 mg ONCE ONE Administration Sodium Chloride 1,000 mls @ 999 mls/hr 05/23/22 16:25 05/23/22 17:57 Ns IVCONT 05/23/22 17:25 Infused .Q1H1M ONE Infusion Piperacillin Sod/Tazobactam 100 mls @ 200 mls/hr 05/23/22 16:36 05/23/22 18:28 Sod 4.5 gm/ Sodium Chloride IV 05/23/22 17:05 Infused ONCE ONE Infusion Magnesium Sulfate 2 gm in 50 mls @ 25 mls/hr 05/23/22 16:37 05/23/22 18:48 Magnesium Sulfate/H2o IV 05/23/22 18:36 Infused ONCE ONE Infusion Iohexol 100 ml 05/23/22 21:31 05/23/22 21:31 Iohexol 350 Mg/Ml 100 Ml Infus..Btl IV 05/23/22 21:32 65 ml ONCE ONE Administration Lidocaine HCl 2 ml 05/23/22 16:47 05/23/22 17:57 Lidocaine Hcl 2% 2 Ml Vial INFILTRATI 05/23/22 16:48 2 ml ONCE ONE Administration Methylprednisolone Sodium Succinate 125 mg 05/23/22 16:37 05/23/22 16:48 Methylprednisolone Sod Succ 125 Mg/2 Ml Vial IVPUSH 05/23/22 16:38 125 mg ONCE ONE Administration MDM - SOB/Dyspnea Lab Data Result diagrams: 05/23/22 17:31 05/23/22 17:30 Labs: Lab Results 05/23/22 05/23/22 05/23/22 Range/Units 16:51 17:30 17:30 WBC (4.8-10.8) X10*3/uL RBC (4.60-5.80) X10*6/uL Hgb (14.0-18.0) g/dl Hct (42.0-52.0) % MCV (80.0-98.0) fL MCH (27.0-33.0) pg MCHC (31.0-36.0) g/dl RDW (11.0-16.0) % Plt Count (160-400) X10*3/uL MPV (9.4-12.4) fL Immature Gran % (Auto) Neut % (Auto) Lymph % (Auto) [place] % (Auto) Eos % (Auto) Baso % (Auto) Lymph # (Auto) [place] # (Auto) Eos # (Auto) Baso # (Auto) Abs Immat Gran (auto) Absolute Neuts (auto) Absolute Nucleated RBC (0.0-0.012) X10*3/uL Nucleated RBC % (auto) (0.0-0.2) /100WBC Neutrophils % (Manual) (45-73) % Band Neutrophils % (3-5) % Lymphocytes % (Manual) (20-40) % Monocytes % (Manual) (2-11) % Metamyelocytes % % Myelocytes % % Abs Neuts (Manual) (2.0-8.3) X10*3/uL Lymphocytes # (Manual) (1.2-4.9) X10*3/uL Monocytes # (Manual) (0.1-1.2) X10*3/uL Metamyelocytes # X10*3/uL Myelocytes # X10*/uL Toxic Granulation Dohle Bodies Platelet Estimate (NORMAL) Plt Morphology Comment RBC Morphology Polychromasia /OIF D-Dimer High Sensitivty NG/ML O2 Saturation 83.0 % ABG pH at Pt Temp 7.37 (7.35-7.45) ABG pCO2 at Pt Temp 90 H* (32-45) mmHg ABG pO2 at Pt Temp 59 L (83-108) mmHg ABG HCO3 52 H (22-26) mmol/L ABG Base Excess (Actual) 21.5 mmol/L VBG pH (7.32-7.43) VBG pCO2 mmHg VBG pO2 mmHg VBG HCO3 (22-26) mmol/L VBG O2 Saturation % VBG Base Excess mmol/L Sodium 138 (135-145) mmol/L Potassium 4.6 (3.3-5.1) mmol/L Chloride 86 L (96-108) mmol/L Carbon Dioxide 42 H* (22-29) mmol/L Anion Gap 15 (12-20) BUN 37 H (9-16) mg/dL Creatinine 0.78 (0.5-1.4) mg/dL Estim Creat Clear Calc 85.9 Estimated GFR > 60 Random Glucose 100 (60-115) mg/dL Lactic Acid 2.4 H* (0.5-2.0) mmol/L Lactic Acid F/U @ 2Hr (0.5-2.0) mmol/L Calcium 9.1 (8.4-10.2) mg/dL Total Bilirubin 3.1 H (0.0-1.0) mg/dL Direct Bilirubin 1.5 H (0.0-0.5) mg/dL AST 20 (5-37) U/L ALT 13 (0-40) U/L Alkaline Phosphatase 62 (39-117) U/L Troponin I High Sens (<3.5-35.0) ng/L B-Natriuretic Peptide (<100) pg/mL Total Protein 6.3 L (6.5-8.0) g/dL Albumin 3.0 L (3.5-5.0) g/dL Urine Color Urine Appearance Urine pH (5.0-9.0) Ur Specific [place] (1.005-1.025) Urine Protein (Neg-Trace) mg/dL Urine Glucose (UA) (Negative) mg/dL Urine Ketones (Negative) mg/dL Urine Blood (Negative) Urine Nitrite (Negative) Ur Leukocyte Esterase (Negative) Urine RBC (0-2) /HPF Urine WBC (0-5) /HPF Ur Squamous Epith Cells (0-2) /HPF Urine Bacteria (None Seen) Hyaline Casts (0-2) /LPF Urine Opiates Screen (Not Detect) Urine Fentanyl Screen (Not Detect) Ur Barbiturates Screen (Not Detect) Ur Phencyclidine Scrn (Not Detect) Ur Amphetamines Screen (Not Detect) U Benzodiazepines Scrn (Not Detect) Urine Cocaine Screen (Not Detect) U Marijuana (THC) Screen (Not Detect) Ethyl Alcohol mg/dL COVID-19 (TATIANNA) (Negative) COVID-19 Clin Com Influenza Type A (JARVIS) (Negative) Influenza Type B (JARVIS) (Negative) Influenza A & B Note 05/23/22 05/23/22 05/23/22 Range/Units 17:31 17:31 17:31 WBC 20.4 H (4.8-10.8) X10*3/uL RBC 5.08 (4.60-5.80) X10*6/uL Hgb 13.7 L (14.0-18.0) g/dl Hct 43.7 D (42.0-52.0) % MCV 86.0 (80.0-98.0) fL MCH 27.0 (27.0-33.0) pg MCHC 31.4 (31.0-36.0) g/dl RDW 17.2 H (11.0-16.0) % Plt Count 119 L D (160-400) X10*3/uL MPV 9.1 L (9.4-12.4) fL Immature Gran % (Auto) Cancelled Neut % (Auto) Cancelled Lymph % (Auto) Cancelled [place] % (Auto) Cancelled Eos % (Auto) Cancelled Baso % (Auto) Cancelled Lymph # (Auto) Cancelled [place] # (Auto) Cancelled Eos # (Auto) Cancelled Baso # (Auto) Cancelled Abs Immat Gran (auto) Cancelled Absolute Neuts (auto) Cancelled Absolute Nucleated RBC 0.020 H (0.0-0.012) X10*3/uL Nucleated RBC % (auto) 0.1 (0.0-0.2) /100WBC Neutrophils % (Manual) 63 (45-73) % Band Neutrophils % 18 H (3-5) % Lymphocytes % (Manual) 3 L (20-40) % Monocytes % (Manual) 9 (2-11) % Metamyelocytes % 6 % Myelocytes % 1 % Abs Neuts (Manual) 16.5 H (2.0-8.3) X10*3/uL Lymphocytes # (Manual) 0.6 L (1.2-4.9) X10*3/uL Monocytes # (Manual) 1.8 H (0.1-1.2) X10*3/uL Metamyelocytes # 1.2 X10*3/uL Myelocytes # 0.2 X10*/uL Toxic Granulation PRESENT Dohle Bodies PRESENT Platelet Estimate SLIGHTLY DECREASED (NORMAL) Plt Morphology Comment NORMAL RBC Morphology NOTED Polychromasia 1+ (0-2) /OIF D-Dimer High Sensitivty NG/ML O2 Saturation % ABG pH at Pt Temp (7.35-7.45) ABG pCO2 at Pt Temp (32-45) mmHg ABG pO2 at Pt Temp (83-108) mmHg ABG HCO3 (22-26) mmol/L ABG Base Excess (Actual) mmol/L VBG pH (7.32-7.43) VBG pCO2 mmHg VBG pO2 mmHg VBG HCO3 (22-26) mmol/L VBG O2 Saturation % VBG Base Excess mmol/L Sodium (135-145) mmol/L Potassium (3.3-5.1) mmol/L Chloride (96-108) mmol/L Carbon Dioxide (22-29) mmol/L Anion Gap (12-20) BUN (9-16) mg/dL Creatinine (0.5-1.4) mg/dL Estim Creat Clear Calc Estimated GFR Random Glucose (60-115) mg/dL Lactic Acid (0.5-2.0) mmol/L Lactic Acid F/U @ 2Hr (0.5-2.0) mmol/L Calcium (8.4-10.2) mg/dL Total Bilirubin (0.0-1.0) mg/dL Direct Bilirubin (0.0-0.5) mg/dL AST (5-37) U/L ALT (0-40) U/L Alkaline Phosphatase (39-117) U/L Troponin I High Sens 4.8 (<3.5-35.0) ng/L B-Natriuretic Peptide 208 H (<100) pg/mL Total Protein (6.5-8.0) g/dL Albumin (3.5-5.0) g/dL Urine Color Urine Appearance Urine pH (5.0-9.0) Ur Specific [place] (1.005-1.025) Urine Protein (Neg-Trace) mg/dL Urine Glucose (UA) (Negative) mg/dL Urine Ketones (Negative) mg/dL Urine Blood (Negative) Urine Nitrite (Negative) Ur Leukocyte Esterase (Negative) Urine RBC (0-2) /HPF Urine WBC (0-5) /HPF Ur Squamous Epith Cells (0-2) /HPF Urine Bacteria (None Seen) Hyaline Casts (0-2) /LPF Urine Opiates Screen (Not Detect) Urine Fentanyl Screen (Not Detect) Ur Barbiturates Screen (Not Detect) Ur Phencyclidine Scrn (Not Detect) Ur Amphetamines Screen (Not Detect) U Benzodiazepines Scrn (Not Detect) Urine Cocaine Screen (Not Detect) U Marijuana (THC) Screen (Not Detect) Ethyl Alcohol mg/dL COVID-19 (TATIANNA) (Negative) COVID-19 Clin Com Influenza Type A (JARVIS) (Negative) Influenza Type B (JARVIS) (Negative) Influenza A & B Note 05/23/22 05/23/22 05/23/22 Range/Units 17:31 17:34 17:34 WBC (4.8-10.8) X10*3/uL RBC (4.60-5.80) X10*6/uL Hgb (14.0-18.0) g/dl Hct (42.0-52.0) % MCV (80.0-98.0) fL MCH (27.0-33.0) pg MCHC (31.0-36.0) g/dl RDW (11.0-16.0) % Plt Count (160-400) X10*3/uL MPV (9.4-12.4) fL Immature Gran % (Auto) Neut % (Auto) Lymph % (Auto) [place] % (Auto) Eos % (Auto) Baso % (Auto) Lymph # (Auto) [place] # (Auto) Eos # (Auto) Baso # (Auto) Abs Immat Gran (auto) Absolute Neuts (auto) Absolute Nucleated RBC (0.0-0.012) X10*3/uL Nucleated RBC % (auto) (0.0-0.2) /100WBC Neutrophils % (Manual) (45-73) % Band Neutrophils % (3-5) % Lymphocytes % (Manual) (20-40) % Monocytes % (Manual) (2-11) % Metamyelocytes % % Myelocytes % % Abs Neuts (Manual) (2.0-8.3) X10*3/uL Lymphocytes # (Manual) (1.2-4.9) X10*3/uL Monocytes # (Manual) (0.1-1.2) X10*3/uL Metamyelocytes # X10*3/uL Myelocytes # X10*/uL Toxic Granulation Dohle Bodies Platelet Estimate (NORMAL) Plt Morphology Comment RBC Morphology Polychromasia /OIF D-Dimer High Sensitivty 365 NG/ML O2 Saturation % ABG pH at Pt Temp (7.35-7.45) ABG pCO2 at Pt Temp (32-45) mmHg ABG pO2 at Pt Temp (83-108) mmHg ABG HCO3 (22-26) mmol/L ABG Base Excess (Actual) mmol/L VBG pH (7.32-7.43) VBG pCO2 mmHg VBG pO2 mmHg VBG HCO3 (22-26) mmol/L VBG O2 Saturation % VBG Base Excess mmol/L Sodium (135-145) mmol/L Potassium (3.3-5.1) mmol/L Chloride (96-108) mmol/L Carbon Dioxide (22-29) mmol/L Anion Gap (12-20) BUN (9-16) mg/dL Creatinine (0.5-1.4) mg/dL Estim Creat Clear Calc Estimated GFR Random Glucose (60-115) mg/dL Lactic Acid (0.5-2.0) mmol/L Lactic Acid F/U @ 2Hr (0.5-2.0) mmol/L Calcium (8.4-10.2) mg/dL Total Bilirubin (0.0-1.0) mg/dL Direct Bilirubin (0.0-0.5) mg/dL AST (5-37) U/L ALT (0-40) U/L Alkaline Phosphatase (39-117) U/L Troponin I High Sens (<3.5-35.0) ng/L B-Natriuretic Peptide (<100) pg/mL Total Protein (6.5-8.0) g/dL Albumin (3.5-5.0) g/dL Urine Color Urine Appearance Urine pH (5.0-9.0) Ur Specific [place] (1.005-1.025) Urine Protein (Neg-Trace) mg/dL Urine Glucose (UA) (Negative) mg/dL Urine Ketones (Negative) mg/dL Urine Blood (Negative) Urine Nitrite (Negative) Ur Leukocyte Esterase (Negative) Urine RBC (0-2) /HPF Urine WBC (0-5) /HPF Ur Squamous Epith Cells (0-2) /HPF Urine Bacteria (None Seen) Hyaline Casts (0-2) /LPF Urine Opiates Screen (Not Detect) Urine Fentanyl Screen (Not Detect) Ur Barbiturates Screen (Not Detect) Ur Phencyclidine Scrn (Not Detect) Ur Amphetamines Screen (Not Detect) U Benzodiazepines Scrn (Not Detect) Urine Cocaine Screen (Not Detect) U Marijuana (THC) Screen (Not Detect) Ethyl Alcohol mg/dL COVID-19 (TATIANNA) Negative (Negative) COVID-19 Clin Com See Note Influenza Type A (JARVIS) Negative (Negative) Influenza Type B (JARVIS) Negative (Negative) Influenza A & B Note See Note 05/23/22 05/23/22 05/23/22 Range/Units 17:39 19:17 19:17 WBC (4.8-10.8) X10*3/uL RBC (4.60-5.80) X10*6/uL Hgb (14.0-18.0) g/dl Hct (42.0-52.0) % MCV (80.0-98.0) fL MCH (27.0-33.0) pg MCHC (31.0-36.0) g/dl RDW (11.0-16.0) % Plt Count (160-400) X10*3/uL MPV (9.4-12.4) fL Immature Gran % (Auto) Neut % (Auto) Lymph % (Auto) [place] % (Auto) Eos % (Auto) Baso % (Auto) Lymph # (Auto) [place] # (Auto) Eos # (Auto) Baso # (Auto) Abs Immat Gran (auto) Absolute Neuts (auto) Absolute Nucleated RBC (0.0-0.012) X10*3/uL Nucleated RBC % (auto) (0.0-0.2) /100WBC Neutrophils % (Manual) (45-73) % Band Neutrophils % (3-5) % Lymphocytes % (Manual) (20-40) % Monocytes % (Manual) (2-11) % Metamyelocytes % % Myelocytes % % Abs Neuts (Manual) (2.0-8.3) X10*3/uL Lymphocytes # (Manual) (1.2-4.9) X10*3/uL Monocytes # (Manual) (0.1-1.2) X10*3/uL Metamyelocytes # X10*3/uL Myelocytes # X10*/uL Toxic Granulation Dohle Bodies Platelet Estimate (NORMAL) Plt Morphology Comment RBC Morphology Polychromasia /OIF D-Dimer High Sensitivty NG/ML O2 Saturation % ABG pH at Pt Temp (7.35-7.45) ABG pCO2 at Pt Temp (32-45) mmHg ABG pO2 at Pt Temp (83-108) mmHg ABG HCO3 (22-26) mmol/L ABG Base Excess (Actual) mmol/L VBG pH 7.32 (7.32-7.43) VBG pCO2 99 mmHg VBG pO2 45 mmHg VBG HCO3 51 H (22-26) mmol/L VBG O2 Saturation 61.0 % VBG Base Excess 19.3 mmol/L Sodium (135-145) mmol/L Potassium (3.3-5.1) mmol/L Chloride (96-108) mmol/L Carbon Dioxide (22-29) mmol/L Anion Gap (12-20) BUN (9-16) mg/dL Creatinine (0.5-1.4) mg/dL Estim Creat Clear Calc Estimated GFR Random Glucose (60-115) mg/dL Lactic Acid (0.5-2.0) mmol/L Lactic Acid F/U @ 2Hr (0.5-2.0) mmol/L Calcium (8.4-10.2) mg/dL Total Bilirubin (0.0-1.0) mg/dL Direct Bilirubin (0.0-0.5) mg/dL AST (5-37) U/L ALT (0-40) U/L Alkaline Phosphatase (39-117) U/L Troponin I High Sens (<3.5-35.0) ng/L B-Natriuretic Peptide (<100) pg/mL Total Protein (6.5-8.0) g/dL Albumin (3.5-5.0) g/dL Urine Color Dark Yellow Urine Appearance Clear Urine pH 5.5 (5.0-9.0) Ur Specific [place] 1.025 (1.005-1.025) Urine Protein 30 (1+) H (Neg-Trace) mg/dL Urine Glucose (UA) Negative (Negative) mg/dL Urine Ketones Trace (Negative) mg/dL Urine Blood Negative (Negative) Urine Nitrite Positive H (Negative) Ur Leukocyte Esterase Trace H (Negative) Urine RBC 0-2 (0-2) /HPF Urine WBC 0-5 (0-5) /HPF Ur Squamous Epith Cells 0-2 (0-2) /HPF Urine Bacteria None Seen (None Seen) Hyaline Casts 11-20 (0-2) /LPF Urine Opiates Screen POSITIVE H (Not Detect) Urine Fentanyl Screen POSITIVE H (Not Detect) Ur Barbiturates Screen Not Detected (Not Detect) Ur Phencyclidine Scrn Not Detected (Not Detect) Ur Amphetamines Screen Not Detected (Not Detect) U Benzodiazepines Scrn Not Detected (Not Detect) Urine Cocaine Screen Not Detected (Not Detect) U Marijuana (THC) Screen Not Detected (Not Detect) Ethyl Alcohol mg/dL COVID-19 (TATIANNA) (Negative) COVID-19 Clin Com Influenza Type A (JARVIS) (Negative) Influenza Type B (JARVIS) (Negative) Influenza A & B Note 05/23/22 05/23/22 Range/Units 21:45 21:45 WBC (4.8-10.8) X10*3/uL RBC (4.60-5.80) X10*6/uL Hgb (14.0-18.0) g/dl Hct (42.0-52.0) % MCV (80.0-98.0) fL MCH (27.0-33.0) pg MCHC (31.0-36.0) g/dl RDW (11.0-16.0) % Plt Count (160-400) X10*3/uL MPV (9.4-12.4) fL Immature Gran % (Auto) Neut % (Auto) Lymph % (Auto) [place] % (Auto) Eos % (Auto) Baso % (Auto) Lymph # (Auto) [place] # (Auto) Eos # (Auto) Baso # (Auto) Abs Immat Gran (auto) Absolute Neuts (auto) Absolute Nucleated RBC (0.0-0.012) X10*3/uL Nucleated RBC % (auto) (0.0-0.2) /100WBC Neutrophils % (Manual) (45-73) % Band Neutrophils % (3-5) % Lymphocytes % (Manual) (20-40) % Monocytes % (Manual) (2-11) % Metamyelocytes % % Myelocytes % % Abs Neuts (Manual) (2.0-8.3) X10*3/uL Lymphocytes # (Manual) (1.2-4.9) X10*3/uL Monocytes # (Manual) (0.1-1.2) X10*3/uL Metamyelocytes # X10*3/uL Myelocytes # X10*/uL Toxic Granulation Dohle Bodies Platelet Estimate (NORMAL) Plt Morphology Comment RBC Morphology Polychromasia /OIF D-Dimer High Sensitivty NG/ML O2 Saturation % ABG pH at Pt Temp (7.35-7.45) ABG pCO2 at Pt Temp (32-45) mmHg ABG pO2 at Pt Temp (83-108) mmHg ABG HCO3 (22-26) mmol/L ABG Base Excess (Actual) mmol/L VBG pH (7.32-7.43) VBG pCO2 mmHg VBG pO2 mmHg VBG HCO3 (22-26) mmol/L VBG O2 Saturation % VBG Base Excess mmol/L Sodium (135-145) mmol/L Potassium (3.3-5.1) mmol/L Chloride (96-108) mmol/L Carbon Dioxide (22-29) mmol/L Anion Gap (12-20) BUN (9-16) mg/dL Creatinine (0.5-1.4) mg/dL Estim Creat Clear Calc Estimated GFR Random Glucose (60-115) mg/dL Lactic Acid (0.5-2.0) mmol/L Lactic Acid F/U @ 2Hr 2.0 (0.5-2.0) mmol/L Calcium (8.4-10.2) mg/dL Total Bilirubin (0.0-1.0) mg/dL Direct Bilirubin (0.0-0.5) mg/dL AST (5-37) U/L ALT (0-40) U/L Alkaline Phosphatase (39-117) U/L Troponin I High Sens (<3.5-35.0) ng/L B-Natriuretic Peptide (<100) pg/mL Total Protein (6.5-8.0) g/dL Albumin (3.5-5.0) g/dL Urine Color Urine Appearance Urine pH (5.0-9.0) Ur Specific [place] (1.005-1.025) Urine Protein (Neg-Trace) mg/dL Urine Glucose (UA) (Negative) mg/dL Urine Ketones (Negative) mg/dL Urine Blood (Negative) Urine Nitrite (Negative) Ur Leukocyte Esterase (Negative) Urine RBC (0-2) /HPF Urine WBC (0-5) /HPF Ur Squamous Epith Cells (0-2) /HPF Urine Bacteria (None Seen) Hyaline Casts (0-2) /LPF Urine Opiates Screen (Not Detect) Urine Fentanyl Screen (Not Detect) Ur Barbiturates Screen (Not Detect) Ur Phencyclidine Scrn (Not Detect) Ur Amphetamines Screen (Not Detect) U Benzodiazepines Scrn (Not Detect) Urine Cocaine Screen (Not Detect) U Marijuana (THC) Screen (Not Detect) Ethyl Alcohol < 10 mg/dL COVID-19 (TATIANNA) (Negative) COVID-19 Clin Com Influenza Type A (JARVIS) (Negative) Influenza Type B (JARVIS) (Negative) Influenza A & B Note Imaging Data CT scan - chest: Radiologist's impression: FINDINGS: QUALITY OF STUDY/CONTRAST BOLUS: Satisfactory. PULMONARY ARTERIES: No central or segmental pulmonary emboli.? THORACIC AORTA: No aneurysm or dissection. LUNG: Diffuse small airways wall thickening bilaterally with extensive bilateral tree in bud pulmonary nodules. Dense airspace consolidation with air bronchograms in the left lower lobe and smaller areas airspace consolidation posterior right lower lobe, lingula and medial right middle lobe. Small left upper lobe calcified granuloma. Scattered small pulmonary nodules and/or endobronchial mucous plugging. No pneumothorax. Small amount of mucus, secretions or debris in the left mainstem bronchus. Additional endobronchial secretions or debris within right lower lobe bronchi. Mild bronchiectasis. PLEURA: Small left pleural effusion. MEDIASTINUM: Normal heart size. No pericardial effusion. No appreciable coronary artery vascular calcification. Mildly enlarged right hilar, subcarinal and AP window lymph nodes measuring 1.3, 1.1, and 1.2 cm in short axis dimension respectively, nonspecific and presumably reactive. ?No evidence of septal bowing or right heart strain. CHEST WALL/AXILLA: No axillary or internal mammary lymphadenopathy. OSSEOUS STRUCTURES: No acute or suspicious osseous abnormality.? UPPER ABDOMEN: Mildly atrophic left kidney with cortical thinning slightly diminished left nephrogram. Mild fullness of the left renal collecting system. Spleen is enlarged, incompletely imaged. Upper abdominal viscera otherwise grossly unremarkable.? No reflux of contrast into the hepatic veins to suggest elevated right heart pressures. CT/CT angio chest PE protocol IMPRESSION: 1.? No evidence of pulmonary embolus. 2.? Diffuse small airways wall thickening with extensive bilateral tree-in-bud pulmonary nodules with bilateral airspace consolidation most extensively in the left lower lobe consistent with pneumonia and accompanying endobronchial spread of infection. 3.? Small left pleural effusion. 4.? Mild mediastinal and right hilar lymphadenopathy, presumably reactive. 5.? Splenomegaly VTE: negative Critical Care Time Critical Care Time Critical Care Time: Yes Total Critical Care Time: 120 Attestation: I have personally provided critical care time. Time includes review of lab data, radiology results, discussion with consultants, and monitoring for potential decompensation. Intervention performed as documented. Discharge Plan Discharge Clinical Impression: Acute exacerbation of chronic obstructive airways disease, Respiratory failure with hypoxia and hypercapnia Patient Disposition: Admitted As Inpatient Prescriptions: No Action Anoro Ellipta 62.5-25 mcg/actuation blister with device 1 puff inhalation DAILY albuterol sulfate 2.5 mg /3 mL (0.083 %) solution for nebulization 1 amp inhalation Q4H PRN (Reason: wheezing) albuterol sulfate [ProAir HFA] 90 mcg/actuation Hfa Aerosol Inhaler 2 puff INHALATION Q6H PRN (Reason: Respiratory Distress) methadone 10 mg/mL Concentrate 40 mg PO DAILY ferrous sulfate [iron] 325 mg (65 mg iron) tablet 325 mg PO BID Qty: 60 0RF prednisone 20 mg tablet 40 mg PO DAILY Qty: 8 0RF pantoprazole 40 mg tablet,delayed release (DR/EC) 40 mg PO DAILY
[2022-05-23] MEDS: Albuterol Sulfate (0.083%) 2.5 MG/3 ML VIAL.NEB 10 MG INHALE (16:53)
[2022-05-23] MEDS: 0.9 % Sodium Chloride 1,000 ML 999 ML IVCONT (16:53)
[2022-05-23 17:01] LABS: ABG Base Excess 21.5 mmol/L; ABG HCO3 52 mmol/L (22-26); ABG pCO2 90 mmHg (32-45); ABG pH 7.37 (7.35-7.45); ABG pO2 59 mmHg (83-108)
[2022-05-23 17:01] LABS: ABG Refer to POC result
[2022-05-23 17:44] LABS: Venous Blood Gas Refer to POC result
[2022-05-23 17:45] LABS: VBG Base Excess 19.3 mmol/L; VBG HCO3 51 mmol/L (22-26); VBG pCO2 99 mmHg; VBG pH 7.32 (7.32-7.43); VBG pO2 45 mmHg
[2022-05-23 17:49] LABS: D Dimer High Sensitivity 365 NG/ML
[2022-05-23] MEDS: Piperacillin Sodium/Tazobactam 4.5 GM in 0.9 % Sodium Chloride 100 ML IV (17:53)
--- NOTE | 2022-05-23 17:57 | PC.NURSE ---
holding lidocaine for the provider
[2022-05-23 17:58] LABS: COVID-19 Test Negative (Negative); IDNOW Serial# 9DB6401D; IDNOW Serial# BCCEAD1C; Influenza A Negative (Negative); Influenza B2 Negative (Negative)
[2022-05-23 17:58] LABS: Mean Corpuscular HGB Conc 31.4 g/dl (31.0-36.0); PLT CLUMP 1
[2022-05-23 17:59] LABS: Hematocrit 43.7 % (42.0-52.0); Hemoglobin 13.7 g/dl (14.0-18.0); Mean Platelet Volume 9.1 fL (9.4-12.4); NRBC Pct Auto 0.1 /100WBC (0.0-0.2); Red Blood Count 5.08 X10*6/uL (4.60-5.80); Red Cell Distribution Width 17.2 % (11.0-16.0)
[2022-05-23 18:01] LABS: B Type Natriuretic Peptide 208 pg/mL (<100)
[2022-05-23 18:03] LABS: Troponin-I High Sensitivity 4.8 ng/L (<3.5-35.0)
[2022-05-23 18:09] LABS: Alanine Aminotransferase 13 U/L (0-40); Alkaline Phosphatase 62 U/L (39-117); Anion Gap 15 (12-20); Aspartate Amino Transferase 20 U/L (5-37); Bilirubin Direct 1.5 mg/dL (0.0-0.5); Bilirubin Total 3.1 mg/dL (0.0-1.0); Blood Urea Nitrogen 37 mg/dL (9-16); Calcium 9.1 mg/dL (8.4-10.2); Carbon Dioxide 42 mmol/L (22-29); Chloride 86 mmol/L (96-108); Creatinine Clr Calc Pharmacy 85.9; Estimated Glomerular Filt Rate > 60; Glucose Random 100 mg/dL (60-115); Lactic Acid 2.4 mmol/L (0.5-2.0); Potassium 4.6 mmol/L (3.3-5.1); Sodium 138 mmol/L (135-145); Total Protein 6.3 g/dL (6.5-8.0)
[2022-05-23 18:34] LABS: WBC ABN SCTR FOR CBC 1
[2022-05-23 18:35] LABS: Platelet Count 119 X10*3/uL (160-400); White Blood Count 20.4 X10*3/uL (4.8-10.8)
[2022-05-23 19:08] LABS: Dohle Bodies PRESENT; Lymphocytes Absolute Manual 0.6 X10*3/uL (1.2-4.9); Lymphocytes Percent Manual 3 % (20-40); Metamyelocytes Absolute 1.2 X10*3/uL; Metamyelocytes Percent 6 %; Monocytes Absolute Manual 1.8 X10*3/uL (0.1-1.2); Monocytes Percent Manual 9 % (2-11); Myelocytes Absolute 0.2 X10*/uL; Myelocytes Percent 1 %; Neutrophils Absolute Manual 16.5 X10*3/uL (2.0-8.3); Neutrophils Percent Manual 63 % (45-73); Polychromasia 1+ (0-2) /OIF; RBC Morphology NOTED; Toxic Granulation PRESENT
[2022-05-23 19:10] LABS: Platelet Estimate SLIGHTLY DECREASED (NORMAL)
[2022-05-23 19:12] LABS: Platelet Morphology Comment NORMAL
[2022-05-23 19:15] LABS: Band Neutrophils Percent 18 % (3-5)
[2022-05-23 19:25] LABS: Appearance Urine Clear; Color Urine Dark Yellow; Glucose Urine UA Negative (Negative); Leukocyte Esterase Urine Trace (Negative); Nitrite Urine Positive (Negative); PH 5.5 (5.0-9.0); Specific Gravity - Urine 1.025 (1.005-1.025); UMIC TRIGGER UACC YES; Urine Blood Negative (Negative); Urine Ketones Trace mg/dL (Negative); Urine Protein 30 (1+) mg/dL (Neg-Trace)
[2022-05-23 19:36] LABS: Bacteria Urine None Seen (None Seen); RBC Urine 0-2 /HPF (0-2); Squamous Epithelial Cell Urine 0-2 /HPF (0-2); UACC Culture Trigger YES; WBC Urine 0-5 /HPF (0-5)
[2022-05-23 19:38] LABS: Reflex Lactate? Lactic Acid Added
[2022-05-23 19:40] LABS: Amphetamine Screen Urine Not Detected (Not Detect); Barbiturates, Urine Not Detected (Not Detect); Benzodiazepines Screen Urine Not Detected (Not Detect); Cannabinoid Screen Urine Not Detected (Not Detect); Cocaine Screen Urine Not Detected (Not Detect); Fentanyl, urine POSITIVE (Not Detect); Opiate Screen Urine POSITIVE (Not Detect); Phencyclidine Screen Urine Not Detected (Not Detect)
--- NOTE | 2022-05-23 20:16 | PC.NURSE ---
Assumed care of patient.
--- NOTE | 2022-05-23 20:16 | PC.NURSE ---
Patient requested water and this nurse assisted the pt. Bipap was immediately placed back thereafter
[2022-05-23] MEDS: iohexoL 350 MG/ML 100 ML INFUS..BTL IV (21:31)
[2022-05-23 22:11] LABS: Ethanol < 10 mg/dL
--- NOTE | 2022-05-23 23:40 | PC.NURSE ---
Patient requested water and aurora kate. Patient tolerating fluids. BiPap replaced once done with sips of drinks.
--- NOTE | 2022-05-23 23:41 | PM.CCHP ---
History of Present Illness Date of Service: 05/23/22 Attending physician on admission: Justino Lazo Chief Complaint: Shortness of breath Patient is a 56-year-old male with a past medical history of? oxygen-dependent COPD( 4 L baseline),? hepatitis-C,? IV drug and pulmonary nodules who presented to the emergency room? via ambulance with complaints of shortness of breath. ? EMS reported? patient stated he was short of breath in the last couple days, today was trying to give himself neb treatment but was unable,? patient was noted to be off nasal cannula,? satting 60% on room air.? On arrival to the emergency room patient was satting 65% on 4 L,? 70% on a non-rebreather,? required initiation of BiPAP. Laboratory data? significant for WBC 20.4, D-dimer 365, chloride 86, serum bicarb 42, BUN 37, lactic acid 2.4, BMP 200, albumin 3 VBGs:? 7.32// IMAGING:? ? Chest CTA-? no evidence of? pulmonary embolism,? bilateral pneumonia greater on the left than right.? ? ED course: received mag sulfate 1 g, Solu-Medrol 125, Zosyn 4.5 , 1 L? normal saline,? and albuterol 10 mg.? ? Will be admitted to ICU for management of acute respiratory failure? likely from pneumonia Review of Systems Review of Systems: Constitutional: No weight loss, fever, chills, weakness or fatigue. Eyes: No visual loss, blurred vision, double vision or yellow sclera ENT: No hearing loss, sneezing, congestion, runny nose or sore throat. Respiratory: (+)Dyspnea, Productive cough with white and green sputum. No hemoptysis. Cardiovascular: No chest pain, No palpitations. No edema Gastrointestinal: No anorexia, nausea, vomiting or diarrhea. No abdominal pain or blood in stool. Genitourinary: No burning micturition. No urinary frequency or incontinence. Neurologic: No headache, dizziness, syncope, unilateral weakness, ataxia, numbness or tingling in the extremities. No change in bowel or bladder control. Musculoskeletal: No muscle pain, back pain, joint pain or stiffness. Hematologic/Lymphatics: No bleeding or bruising. No painful lymph nodes. Skin: No rash or itching. Endocrine: No reports of sweating. No cold or heat intolerance. No polyuria or polydipsia. [facility] Past Medical History Medical History (Updated 05/24/22 @ 00:44 by Flex Sky NP) COPD (chronic obstructive pulmonary disease) Erosive esophagitis HCV (hepatitis C virus) Latent tuberculosis Severe chronic obstructive pulmonary disease Family History Family History Mother HTN (hypertension) Brother COPD (chronic obstructive pulmonary disease) Social History Social History Household Members: Family Housing: House Do you presently have visiting nurse or other home services: No Alcohol intake: unknown Patient Tobacco Use Status: Former Tobacco user Tobacco use type: Cigarette Cigarettes Per Day: 10 Years Smoked: 30 Smoked in Last 30 Days: No Use of substances other than those prescribed or required for medical reasons: No Substance Use Type: Heroin Advance Directives: Yes Advance Directives on File: Yes Advance Directives Date on File: 11/16/21 service: No Current occupational status: unemployed Meds Allergies Allergy/AdvReac Type Severity Reaction Status Date / Time No Known Allergies Allergy Verified 02/13/22 17:09 Home Medications Medication Instructions Recorded Confirmed Last Taken Type pantoprazole 40 mg tablet,delayed 40 mg PO DAILY 03/29/20 12/22/21 12/21/21 History release umeclidinium 62.5 mcg-vilanterol 1 puff inhalation DAILY 02/12/21 12/22/21 12/21/21 History 25 mcg/actuation powdr for inhalation (Anoro Ellipta) albuterol sulfate 2.5 mg/3 mL 1 amp inhalation Q4H PRN wheezing 10/22/21 12/22/21 Unknown History (0.083 %) solution for nebulization albuterol sulfate 90 mcg/actuation 2 puff inhalation Q6H PRN 10/22/21 12/22/21 Unknown History aerosol inhaler (ProAir HFA) Respiratory Distress methadone 10 mg/mL oral concentrate 40 mg PO DAILY 10/29/21 12/22/21 12/21/21 History Physical Exam Vital Signs: Vital Signs: Last Vital Signs Temp 98.5 F 05/23/22 17:08 Pulse 118 H 05/23/22 21:41 Resp 30 H 05/23/22 21:41 BP 106/56 L 05/23/22 18:46 Pulse Ox 91 L 05/23/22 21:41 O2 Del Method 05/23/22 21:41 Oxygen Flow Rate 4 05/23/22 17:08 BMI result Body Mass Index 19.5 Constitutional: Alert, on BIPAP Mental Status: Oriented to person, place and time. Head: Normocephalic. Eyes: Pupils are equal, round and reactive to light. Extraocular muscles intact. Ear, Nose and Throat: Oropharynx clear, mucous membranes dry.. Ears and nose without masses, lesions or deformities. Trachea midline. Neck: Supple, Full range of motion. Respiratory: Patient on BIPAP, in no significant amount of resp distress. Lungs diminished throughout. No wheezing, rhonchi, crackles Cardiovascular: sinus rhythm, S1 S2 regular. No murmurs, rubs or gallops. Gastrointestinal: Abdomen soft, non-tender, non-distended. Normal bowel sounds. Genitourinary: No costovertebral angle tenderness. Neurologic: Cranial nerves II-XII grossly intact. No focal neurological deficits. Moves all extremities spontaneously. Sensation intact bilaterally. Skin: No rashes or lesions. No petechiae or purpura. Musculoskeletal: No cyanosis or clubbing. No gross deformities. Normal range of motion. Results Labs CBC and Chem 7: 05/23/22 17:31 05/23/22 17:30 Labs: Laboratory Results - last 24 hr 05/23/22 05/23/22 05/23/22 16:51 17:30 17:30 MCV MCH MCHC RDW Plt Count MPV Immature Gran % (Auto) Neut % (Auto) Lymph % (Auto) [place] % (Auto) Eos % (Auto) Baso % (Auto) Lymph # (Auto) [place] # (Auto) Eos # (Auto) Baso # (Auto) Abs Immat Gran (auto) Absolute Neuts (auto) Absolute Nucleated RBC Nucleated RBC % (auto) Neutrophils % (Manual) Band Neutrophils % Lymphocytes % (Manual) Monocytes % (Manual) Metamyelocytes % Myelocytes % Abs Neuts (Manual) Lymphocytes # (Manual) Monocytes # (Manual) Metamyelocytes # Myelocytes # Toxic Granulation Dohle Bodies Platelet Estimate Plt Morphology Comment RBC Morphology Polychromasia D-Dimer High Sensitivty O2 Saturation 83.0 ABG pH at Pt Temp 7.37 ABG pCO2 at Pt Temp 90 H* ABG pO2 at Pt Temp 59 L ABG HCO3 52 H ABG Base Excess (Actual) 21.5 VBG pH VBG pCO2 VBG pO2 VBG HCO3 VBG O2 Saturation VBG Base Excess Anion Gap 15 Estim Creat Clear Calc 85.9 Estimated GFR > 60 Random Glucose 100 Lactic Acid 2.4 H* Lactic Acid F/U @ 2Hr Calcium 9.1 Total Bilirubin 3.1 H Direct Bilirubin 1.5 H AST 20 ALT 13 Alkaline Phosphatase 62 Troponin I High Sens B-Natriuretic Peptide Total Protein 6.3 L Albumin 3.0 L Urine Color Urine Appearance Urine pH Ur Specific [place] Urine Protein Urine Glucose (UA) Urine Ketones Urine Blood Urine Nitrite Ur Leukocyte Esterase Urine RBC Urine WBC Ur Squamous Epith Cells Urine Bacteria Hyaline Casts Urine Opiates Screen Urine Fentanyl Screen Ur Barbiturates Screen Ur Phencyclidine Scrn Ur Amphetamines Screen U Benzodiazepines Scrn Urine Cocaine Screen U Marijuana (THC) Screen Ethyl Alcohol COVID-19 (TATIANNA) COVID-19 Clin Com Influenza Type A (JARVIS) Influenza Type B (JARVIS) Influenza A & B Note 05/23/22 05/23/22 05/23/22 17:31 17:31 17:31 MCV 86.0 MCH 27.0 MCHC 31.4 RDW 17.2 H Plt Count 119 L D MPV 9.1 L Immature Gran % (Auto) Cancelled Neut % (Auto) Cancelled Lymph % (Auto) Cancelled [place] % (Auto) Cancelled Eos % (Auto) Cancelled Baso % (Auto) Cancelled Lymph # (Auto) Cancelled [place] # (Auto) Cancelled Eos # (Auto) Cancelled Baso # (Auto) Cancelled Abs Immat Gran (auto) Cancelled Absolute Neuts (auto) Cancelled Absolute Nucleated RBC 0.020 H Nucleated RBC % (auto) 0.1 Neutrophils % (Manual) 63 Band Neutrophils % 18 H Lymphocytes % (Manual) 3 L Monocytes % (Manual) 9 Metamyelocytes % 6 Myelocytes % 1 Abs Neuts (Manual) 16.5 H Lymphocytes # (Manual) 0.6 L Monocytes # (Manual) 1.8 H Metamyelocytes # 1.2 Myelocytes # 0.2 Toxic Granulation PRESENT Dohle Bodies PRESENT Platelet Estimate SLIGHTLY DECREASED Plt Morphology Comment NORMAL RBC Morphology NOTED Polychromasia 1+ (0-2) D-Dimer High Sensitivty O2 Saturation ABG pH at Pt Temp ABG pCO2 at Pt Temp ABG pO2 at Pt Temp ABG HCO3 ABG Base Excess (Actual) VBG pH VBG pCO2 VBG pO2 VBG HCO3 VBG O2 Saturation VBG Base Excess Anion Gap Estim Creat Clear Calc Estimated GFR Random Glucose Lactic Acid Lactic Acid F/U @ 2Hr Calcium Total Bilirubin Direct Bilirubin AST ALT Alkaline Phosphatase Troponin I High Sens 4.8 B-Natriuretic Peptide 208 H Total Protein Albumin Urine Color Urine Appearance Urine pH Ur Specific [place] Urine Protein Urine Glucose (UA) Urine Ketones Urine Blood Urine Nitrite Ur Leukocyte Esterase Urine RBC Urine WBC Ur Squamous Epith Cells Urine Bacteria Hyaline Casts Urine Opiates Screen Urine Fentanyl Screen Ur Barbiturates Screen Ur Phencyclidine Scrn Ur Amphetamines Screen U Benzodiazepines Scrn Urine Cocaine Screen U Marijuana (THC) Screen Ethyl Alcohol COVID-19 (TATIANNA) COVID-19 Clin Com Influenza Type A (JARVIS) Influenza Type B (JARVIS) Influenza A & B Note 05/23/22 05/23/22 05/23/22 17:31 17:34 17:34 MCV MCH MCHC RDW Plt Count MPV Immature Gran % (Auto) Neut % (Auto) Lymph % (Auto) [place] % (Auto) Eos % (Auto) Baso % (Auto) Lymph # (Auto) [place] # (Auto) Eos # (Auto) Baso # (Auto) Abs Immat Gran (auto) Absolute Neuts (auto) Absolute Nucleated RBC Nucleated RBC % (auto) Neutrophils % (Manual) Band Neutrophils % Lymphocytes % (Manual) Monocytes % (Manual) Metamyelocytes % Myelocytes % Abs Neuts (Manual) Lymphocytes # (Manual) Monocytes # (Manual) Metamyelocytes # Myelocytes # Toxic Granulation Dohle Bodies Platelet Estimate Plt Morphology Comment RBC Morphology Polychromasia D-Dimer High Sensitivty 365 O2 Saturation ABG pH at Pt Temp ABG pCO2 at Pt Temp ABG pO2 at Pt Temp ABG HCO3 ABG Base Excess (Actual) VBG pH VBG pCO2 VBG pO2 VBG HCO3 VBG O2 Saturation VBG Base Excess Anion Gap Estim Creat Clear Calc Estimated GFR Random Glucose Lactic Acid Lactic Acid F/U @ 2Hr Calcium Total Bilirubin Direct Bilirubin AST ALT Alkaline Phosphatase Troponin I High Sens B-Natriuretic Peptide Total Protein Albumin Urine Color Urine Appearance Urine pH Ur Specific [place] Urine Protein Urine Glucose (UA) Urine Ketones Urine Blood Urine Nitrite Ur Leukocyte Esterase Urine RBC Urine WBC Ur Squamous Epith Cells Urine Bacteria Hyaline Casts Urine Opiates Screen Urine Fentanyl Screen Ur Barbiturates Screen Ur Phencyclidine Scrn Ur Amphetamines Screen U Benzodiazepines Scrn Urine Cocaine Screen U Marijuana (THC) Screen Ethyl Alcohol COVID-19 (TATIANNA) Negative COVID-19 Clin Com See Note Influenza Type A (JARVIS) Negative Influenza Type B (JARVIS) Negative Influenza A & B Note See Note 05/23/22 05/23/22 05/23/22 17:39 19:17 19:17 MCV MCH MCHC RDW Plt Count MPV Immature Gran % (Auto) Neut % (Auto) Lymph % (Auto) [place] % (Auto) Eos % (Auto) Baso % (Auto) Lymph # (Auto) [place] # (Auto) Eos # (Auto) Baso # (Auto) Abs Immat Gran (auto) Absolute Neuts (auto) Absolute Nucleated RBC Nucleated RBC % (auto) Neutrophils % (Manual) Band Neutrophils % Lymphocytes % (Manual) Monocytes % (Manual) Metamyelocytes % Myelocytes % Abs Neuts (Manual) Lymphocytes # (Manual) Monocytes # (Manual) Metamyelocytes # Myelocytes # Toxic Granulation Dohle Bodies Platelet Estimate Plt Morphology Comment RBC Morphology Polychromasia D-Dimer High Sensitivty O2 Saturation ABG pH at Pt Temp ABG pCO2 at Pt Temp ABG pO2 at Pt Temp ABG HCO3 ABG Base Excess (Actual) VBG pH 7.32 VBG pCO2 99 VBG pO2 45 VBG HCO3 51 H VBG O2 Saturation 61.0 VBG Base Excess 19.3 Anion Gap Estim Creat Clear Calc Estimated GFR Random Glucose Lactic Acid Lactic Acid F/U @ 2Hr Calcium Total Bilirubin Direct Bilirubin AST ALT Alkaline Phosphatase Troponin I High Sens B-Natriuretic Peptide Total Protein Albumin Urine Color Dark Yellow Urine Appearance Clear Urine pH 5.5 Ur Specific [place] 1.025 Urine Protein 30 (1+) H Urine Glucose (UA) Negative Urine Ketones Trace Urine Blood Negative Urine Nitrite Positive H Ur Leukocyte Esterase Trace H Urine RBC 0-2 Urine WBC 0-5 Ur Squamous Epith Cells 0-2 Urine Bacteria None Seen Hyaline Casts 11-20 Urine Opiates Screen POSITIVE H Urine Fentanyl Screen POSITIVE H Ur Barbiturates Screen Not Detected Ur Phencyclidine Scrn Not Detected Ur Amphetamines Screen Not Detected U Benzodiazepines Scrn Not Detected Urine Cocaine Screen Not Detected U Marijuana (THC) Screen Not Detected Ethyl Alcohol COVID-19 (TATIANNA) COVID-19 Clin Com Influenza Type A (JARVIS) Influenza Type B (JARVIS) Influenza A & B Note 05/23/22 05/23/22 21:45 21:45 MCV MCH MCHC RDW Plt Count MPV Immature Gran % (Auto) Neut % (Auto) Lymph % (Auto) [place] % (Auto) Eos % (Auto) Baso % (Auto) Lymph # (Auto) [place] # (Auto) Eos # (Auto) Baso # (Auto) Abs Immat Gran (auto) Absolute Neuts (auto) Absolute Nucleated RBC Nucleated RBC % (auto) Neutrophils % (Manual) Band Neutrophils % Lymphocytes % (Manual) Monocytes % (Manual) Metamyelocytes % Myelocytes % Abs Neuts (Manual) Lymphocytes # (Manual) Monocytes # (Manual) Metamyelocytes # Myelocytes # Toxic Granulation Dohle Bodies Platelet Estimate Plt Morphology Comment RBC Morphology Polychromasia D-Dimer High Sensitivty O2 Saturation ABG pH at Pt Temp ABG pCO2 at Pt Temp ABG pO2 at Pt Temp ABG HCO3 ABG Base Excess (Actual) VBG pH VBG pCO2 VBG pO2 VBG HCO3 VBG O2 Saturation VBG Base Excess Anion Gap Estim Creat Clear Calc Estimated GFR Random Glucose Lactic Acid Lactic Acid F/U @ 2Hr 2.0 Calcium Total Bilirubin Direct Bilirubin AST ALT Alkaline Phosphatase Troponin I High Sens B-Natriuretic Peptide Total Protein Albumin Urine Color Urine Appearance Urine pH Ur Specific [place] Urine Protein Urine Glucose (UA) Urine Ketones Urine Blood Urine Nitrite Ur Leukocyte Esterase Urine RBC Urine WBC Ur Squamous Epith Cells Urine Bacteria Hyaline Casts Urine Opiates Screen Urine Fentanyl Screen Ur Barbiturates Screen Ur Phencyclidine Scrn Ur Amphetamines Screen U Benzodiazepines Scrn Urine Cocaine Screen U Marijuana (THC) Screen Ethyl Alcohol < 10 COVID-19 (TATIANNA) COVID-19 Clin Com Influenza Type A (JARVIS) Influenza Type B (JARVIS) Influenza A & B Note Imaging Radiologist's Impressions: Impressions Chest X-Ray 05/23/22 17:05 IMPRESSION: 1. Development of airspace consolidation in the left lung base with possible small left pleural effusion. Findings consistent with pneumonia in the appropriate clinical setting. 2. Diffusely increased reticular/reticulonodular markings in the mid and lower portions of both lungs. Findings may be due to atypical infection. Chest CTA 05/23/22 22:10 IMPRESSION: 1. No evidence of pulmonary embolus. 2. Diffuse small airways wall thickening with extensive bilateral tree-in-bud pulmonary nodules with bilateral airspace consolidation most extensively in the left lower lobe consistent with pneumonia and accompanying endobronchial spread of infection. 3. Small left pleural effusion. 4. Mild mediastinal and right hilar lymphadenopathy, presumably reactive. 5. Splenomegaly VTE: negative Assessment and Plan (1) Respiratory failure with hypoxia and hypercapnia: Status: Acute (2) Pneumonia: Status: Acute (3) UTI (urinary tract infection): Status: Acute (4) COPD (chronic obstructive pulmonary disease): Status: Acute Plan 56-year-old male with history of oxygen-dependent COPD( 4 L baseline),? hepatitis-C,? IV drug and pulmonary nodules who ?is admitted into the ICU with? acute? hypercarbic and hypoxic respiratory failure likely from bilateral pneumonia and UTI? Plan: Neuro:? No acute issues.?? Cardiac:? ?Elevated lactic acid-? initial lactic acid 2.4,? quickly? down trending to 2? without fluid resuscitation.? Vital signs are stable, Septic shock is unlikely.? Pulmonary:? ?Acute? hypercapnic/ hypoxic respiratory failure-? WBC elevated to 20, elevated ddimer,? CTA? negative for PE but did show? bilateral pneumonia,? with left greater than right? is likely because of acute decompensation.? Will continue with? antibiotics,? continue BiPAP.? Wean off as tolerated. Keep o2 sat goal 88-92%? Renal: ? no acute issues Endo:? ? no acute issues GI: ? No acute issues ID: ? pneumonia/? UTI - ? patient also positive for UTI.? received empiric Zosyn in the emergency room.? Will also add empiric vancomycin.? Heme/Onc:? No acute issues. Psych: ? history of IV drug use? on methadone.? Patient drug screen positive for opiates and fentanyl.? Will resume methadone when dose has been confirmed by methadone clinic Miscellaneous:? No acute issues. Prophylaxis: Lovenox Diet:? ? NPO while on BIPAP? Code status: FULL CODE ? Critical care time:? time 60 minutes of critical care time ? Case discussed with attending Dr Lazo? Critical Care Time Critical Care Time (minutes): 60
--- NOTE | 2022-05-23 23:46 | PC.NURSE ---
VS assessed and NS flushes in both lines to confirm patency
[2022-05-24] VITALS (34 sets, daily range): BP systolic 99–183; BP diastolic 56–90; PULSE 78–113; RESP 17–36; TEMP 36.3–37; O2SAT 87–95; BMI 19.5; BMI 18.8
[2022-05-24] MEDS: Piperacillin Sodium/Tazobactam 4.5 GM in 0.9 % Sodium Chloride 100 ML IV ×4 (00:47→17:11)
[2022-05-24] MEDS: vancomycin HCL 1,000 MG in 0.9 % Sodium Chloride 250 ML 270 MG IV ×2 (00:47→09:57)
[2022-05-24] MEDS: Enoxaparin Sodium 40 MG/0.4 ML SYRINGE SUBCUT (00:47)
[2022-05-24] MEDS: Albumin Human 25 % 100 ML IV ×4 (00:56→19:35)
[2022-05-24 05:20] LABS: VBG Base Excess 24.2 mmol/L; VBG HCO3 51 mmol/L (22-26); VBG pCO2 67 mmHg; VBG pH 7.49 (7.32-7.43); VBG pO2 53 mmHg
[2022-05-24 06:11] LABS: Venous Blood Gas Refer to POC result
[2022-05-24 06:36] LABS: Alanine Aminotransferase 10 U/L (0-40); Albumin Level 2.8 g/dL (3.5-5.0); Alkaline Phosphatase 47 U/L (39-117); Anion Gap 11 (12-20); Aspartate Amino Transferase 13 U/L (5-37); Bilirubin Total 2.1 mg/dL (0.0-1.0); Blood Urea Nitrogen 34 mg/dL (9-16); Calcium 8.5 mg/dL (8.4-10.2); Carbon Dioxide 44 mmol/L (22-29); Chloride 90 mmol/L (96-108); Creatinine Clr Calc Pharmacy 103.1; Estimated Glomerular Filt Rate > 60; Glucose Random 151 mg/dL (60-115); Phosphorus 2.4 mg/dL (2.7-4.5); Potassium 4.1 mmol/L (3.3-5.1); Sodium 141 mmol/L (135-145); Total Protein 5.2 g/dL (6.5-8.0)
--- NOTE | 2022-05-24 07:32 | PHA.MEDREC ---
Pharmacy Consult ? Medication Reconciliation Pharmacy has completed the medication reconciliation.
[2022-05-24] MEDS: Potassium Phosphate/NS 15 MMOL/250 ML PLAST..BAG 62.5 MMOL IV (07:43)
[2022-05-24] MEDS: acetaZOLAMIDE 250 MG TABLET PO (07:43)
[2022-05-24 08:35] LABS: Hematocrit 31.8 % (42.0-52.0); Hemoglobin 9.8 g/dl (14.0-18.0); Mean Corpuscular HGB Conc 30.8 g/dl (31.0-36.0); Mean Corpuscular Hemoglobin 26.5 pg (27.0-33.0); Mean Corpuscular Volume 85.9 fL (80.0-98.0); Red Cell Distribution Width 16.7 % (11.0-16.0); White Blood Count 5.8 X10*3/uL (4.8-10.8)
[2022-05-24 09:30] LABS: Band Neutrophils Percent 32 % (3-5); Lymphocytes Absolute Manual 0.2 X10*3/uL (1.2-4.9); Lymphocytes Percent Manual 3 % (20-40); Metamyelocytes Absolute 0.1 X10*3/uL; Metamyelocytes Percent 2 %; Monocytes Absolute Manual 0.1 X10*3/uL (0.1-1.2); Monocytes Percent Manual 1 % (2-11); Neutrophils Absolute Manual 5.5 X10*3/uL (2.0-8.3); Neutrophils Percent Manual 62 % (45-73)
[2022-05-24 09:32] LABS: RBC Morphology NOTED; Spherocytes 2+ (3-5) /OIF
[2022-05-24 09:33] LABS: Burr Cells 1+ (0-2) /OIF; Hypochromasia 1+ (5-14) /OIF; Polychromasia 1+ (0-2) /OIF
[2022-05-24 09:34] LABS: Platelet Estimate DECREASED (NORMAL); Platelet Morphology Comment NORMAL; Toxic Granulation PRESENT
[2022-05-24 09:35] LABS: Mean Platelet Volume 9.5 fL (9.4-12.4); Platelet Count 37 X10*3/uL (160-400)
[2022-05-24] MEDS: Albuterol/Iprat 2.5/0.5MG 3 ML AMPUL.NEB INHALE ×2 (11:23→20:13)
--- NOTE | 2022-05-24 11:27 | MHC.CM.PN ---
Attempted to meet with patient for CM assessment- patient did not want to engage and asked this web content writer to come back later . Patient did not want me to call anyone for him. Per rounds and EMR patient live home alone, uses oxygen and has current substance use. CM will continue to follow patient for discharge planning needs.
--- NOTE | 2022-05-24 11:46 | P.PNCC_ITS ---
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 On ER evaluation patient and significant respiratory distress requiring support with BiPAP. His CT angiogram chest with no evidence of pulmonary emboli, however with bilateral consolidative pneumonia. Patient started on broad-spectrum antibiotics and admitted to intensive care unit. no events overnight. Continues to require BiPAP support on and off. Critical Care Time (minutes): 45 Physical Exam Vital Signs: Vital Signs: Last Vital Signs Temp 97.4 F 05/24/22 11:00 Pulse 88 05/24/22 11:23 Resp 22 H 05/24/22 11:27 BP 138/84 05/24/22 11:00 Pulse Ox 93 05/24/22 11:00 O2 Del Method 05/24/22 11:00 O2 Flow Rate 5 05/24/22 10:00 FiO2 40 05/24/22 11:00 Oxygen Flow Rate 70 05/23/22 21:38 BMI result Body Mass Index 18.8 Const: General: no acute distress, alert and awake Eyes: Sclerae: sclerae normal EOM: EOMs intact bilaterally Neck: Neck: Yes no lymphadenopathy, Yes trachea midline and Yes supple Resp: Effort & Inspection: normal respiratory effort and no respiratory distress Auscultation: crackles ( Bibasilar) Cardio: Rate: regular rate Rhythm: regular rhythm Heart sounds: no gallops, no murmurs and no rubs GI: Palpation (GI): Soft to palpation and Other GI palpation findings present ( Nontender) Auscultation: normal bowel sounds Extrem: General: Yes no pedal edema, No clubbing and No cyanosis Objective Data Labs CBC & Chem 7: 05/24/22 08:14 05/24/22 05:08 Labs: Laboratory Results - last 24 hr 05/23/22 05/23/22 05/23/22 16:51 17:30 17:30 WBC RBC Hgb Hct MCV MCH MCHC RDW Plt Count MPV Immature Gran % (Auto) Neut % (Auto) Lymph % (Auto) [place] % (Auto) Eos % (Auto) Baso % (Auto) Lymph # (Auto) [place] # (Auto) Eos # (Auto) Baso # (Auto) Abs Immat Gran (auto) Absolute Neuts (auto) Absolute Nucleated RBC Nucleated RBC % (auto) Neutrophils % (Manual) Band Neutrophils % Lymphocytes % (Manual) Monocytes % (Manual) Metamyelocytes % Myelocytes % Abs Neuts (Manual) Lymphocytes # (Manual) Monocytes # (Manual) Metamyelocytes # Myelocytes # Toxic Granulation Dohle Bodies Platelet Estimate Plt Morphology Comment RBC Morphology Polychromasia Hypochromasia Spherocytes Vanzant Cells D-Dimer High Sensitivty O2 Saturation 83.0 ABG pH at Pt Temp 7.37 ABG pCO2 at Pt Temp 90 H* ABG pO2 at Pt Temp 59 L ABG HCO3 52 H ABG Base Excess (Actual) 21.5 VBG pH VBG pCO2 VBG pO2 VBG HCO3 VBG O2 Saturation VBG Base Excess Sodium 138 Potassium 4.6 Chloride 86 L Carbon Dioxide 42 H* Anion Gap 15 BUN 37 H Creatinine 0.78 Estim Creat Clear Calc 85.9 Estimated GFR > 60 Random Glucose 100 Lactic Acid 2.4 H* Lactic Acid F/U @ 2Hr Calcium 9.1 Phosphorus Magnesium Total Bilirubin 3.1 H Direct Bilirubin 1.5 H AST 20 ALT 13 Alkaline Phosphatase 62 Troponin I High Sens B-Natriuretic Peptide Total Protein 6.3 L Albumin 3.0 L Urine Color Urine Appearance Urine pH Ur Specific [place] Urine Protein Urine Glucose (UA) Urine Ketones Urine Blood Urine Nitrite Ur Leukocyte Esterase Urine RBC Urine WBC Ur Squamous Epith Cells Urine Bacteria Hyaline Casts Urine Opiates Screen Urine Fentanyl Screen Ur Barbiturates Screen Ur Phencyclidine Scrn Ur Amphetamines Screen U Benzodiazepines Scrn Urine Cocaine Screen U Marijuana (THC) Screen Ethyl Alcohol COVID-19 (TATIANNA) COVID-19 Clin Com Influenza Type A (JARVIS) Influenza Type B (JARVIS) Influenza A & B Note 05/23/22 05/23/22 05/23/22 17:31 17:31 17:31 WBC 20.4 H RBC 5.08 Hgb 13.7 L Hct 43.7 D MCV 86.0 MCH 27.0 MCHC 31.4 RDW 17.2 H Plt Count 119 L D MPV 9.1 L Immature Gran % (Auto) Cancelled Neut % (Auto) Cancelled Lymph % (Auto) Cancelled [place] % (Auto) Cancelled Eos % (Auto) Cancelled Baso % (Auto) Cancelled Lymph # (Auto) Cancelled [place] # (Auto) Cancelled Eos # (Auto) Cancelled Baso # (Auto) Cancelled Abs Immat Gran (auto) Cancelled Absolute Neuts (auto) Cancelled Absolute Nucleated RBC 0.020 H Nucleated RBC % (auto) 0.1 Neutrophils % (Manual) 63 Band Neutrophils % 18 H Lymphocytes % (Manual) 3 L Monocytes % (Manual) 9 Metamyelocytes % 6 Myelocytes % 1 Abs Neuts (Manual) 16.5 H Lymphocytes # (Manual) 0.6 L Monocytes # (Manual) 1.8 H Metamyelocytes # 1.2 Myelocytes # 0.2 Toxic Granulation PRESENT Dohle Bodies PRESENT Platelet Estimate SLIGHTLY DECREASED Plt Morphology Comment NORMAL RBC Morphology NOTED Polychromasia 1+ (0-2) Hypochromasia Spherocytes Alejandro Cells D-Dimer High Sensitivty O2 Saturation ABG pH at Pt Temp ABG pCO2 at Pt Temp ABG pO2 at Pt Temp ABG HCO3 ABG Base Excess (Actual) VBG pH VBG pCO2 VBG pO2 VBG HCO3 VBG O2 Saturation VBG Base Excess Sodium Potassium Chloride Carbon Dioxide Anion Gap BUN Creatinine Estim Creat Clear Calc Estimated GFR Random Glucose Lactic Acid Lactic Acid F/U @ 2Hr Calcium Phosphorus Magnesium Total Bilirubin Direct Bilirubin AST ALT Alkaline Phosphatase Troponin I High Sens 4.8 B-Natriuretic Peptide 208 H Total Protein Albumin Urine Color Urine Appearance Urine pH Ur Specific [place] Urine Protein Urine Glucose (UA) Urine Ketones Urine Blood Urine Nitrite Ur Leukocyte Esterase Urine RBC Urine WBC Ur Squamous Epith Cells Urine Bacteria Hyaline Casts Urine Opiates Screen Urine Fentanyl Screen Ur Barbiturates Screen Ur Phencyclidine Scrn Ur Amphetamines Screen U Benzodiazepines Scrn Urine Cocaine Screen U Marijuana (THC) Screen Ethyl Alcohol COVID-19 (TATIANNA) COVID-19 Clin Com Influenza Type A (JARVIS) Influenza Type B (JARVIS) Influenza A & B Note 05/23/22 05/23/22 05/23/22 17:31 17:34 17:34 WBC RBC Hgb Hct MCV MCH MCHC RDW Plt Count MPV Immature Gran % (Auto) Neut % (Auto) Lymph % (Auto) [place] % (Auto) Eos % (Auto) Baso % (Auto) Lymph # (Auto) [place] # (Auto) Eos # (Auto) Baso # (Auto) Abs Immat Gran (auto) Absolute Neuts (auto) Absolute Nucleated RBC Nucleated RBC % (auto) Neutrophils % (Manual) Band Neutrophils % Lymphocytes % (Manual) Monocytes % (Manual) Metamyelocytes % Myelocytes % Abs Neuts (Manual) Lymphocytes # (Manual) Monocytes # (Manual) Metamyelocytes # Myelocytes # Toxic Granulation Dohle Bodies Platelet Estimate Plt Morphology Comment RBC Morphology Polychromasia Hypochromasia Spherocytes [place] Cells D-Dimer High Sensitivty 365 O2 Saturation ABG pH at Pt Temp ABG pCO2 at Pt Temp ABG pO2 at Pt Temp ABG HCO3 ABG Base Excess (Actual) VBG pH VBG pCO2 VBG pO2 VBG HCO3 VBG O2 Saturation VBG Base Excess Sodium Potassium Chloride Carbon Dioxide Anion Gap BUN Creatinine Estim Creat Clear Calc Estimated GFR Random Glucose Lactic Acid Lactic Acid F/U @ 2Hr Calcium Phosphorus Magnesium Total Bilirubin Direct Bilirubin AST ALT Alkaline Phosphatase Troponin I High Sens B-Natriuretic Peptide Total Protein Albumin Urine Color Urine Appearance Urine pH Ur Specific [place] Urine Protein Urine Glucose (UA) Urine Ketones Urine Blood Urine Nitrite Ur Leukocyte Esterase Urine RBC Urine WBC Ur Squamous Epith Cells Urine Bacteria Hyaline Casts Urine Opiates Screen Urine Fentanyl Screen Ur Barbiturates Screen Ur Phencyclidine Scrn Ur Amphetamines Screen U Benzodiazepines Scrn Urine Cocaine Screen U Marijuana (THC) Screen Ethyl Alcohol COVID-19 (TATIANNA) Negative COVID-19 Clin Com See Note Influenza Type A (JARVIS) Negative Influenza Type B (JARVIS) Negative Influenza A & B Note See Note 05/23/22 05/23/22 05/23/22 17:39 19:17 19:17 WBC RBC Hgb Hct MCV MCH MCHC RDW Plt Count MPV Immature Gran % (Auto) Neut % (Auto) Lymph % (Auto) [place] % (Auto) Eos % (Auto) Baso % (Auto) Lymph # (Auto) [place] # (Auto) Eos # (Auto) Baso # (Auto) Abs Immat Gran (auto) Absolute Neuts (auto) Absolute Nucleated RBC Nucleated RBC % (auto) Neutrophils % (Manual) Band Neutrophils % Lymphocytes % (Manual) Monocytes % (Manual) Metamyelocytes % Myelocytes % Abs Neuts (Manual) Lymphocytes # (Manual) Monocytes # (Manual) Metamyelocytes # Myelocytes # Toxic Granulation Dohle Bodies Platelet Estimate Plt Morphology Comment RBC Morphology Polychromasia Hypochromasia Spherocytes [place] Cells D-Dimer High Sensitivty O2 Saturation ABG pH at Pt Temp ABG pCO2 at Pt Temp ABG pO2 at Pt Temp ABG HCO3 ABG Base Excess (Actual) VBG pH 7.32 VBG pCO2 99 VBG pO2 45 VBG HCO3 51 H VBG O2 Saturation 61.0 VBG Base Excess 19.3 Sodium Potassium Chloride Carbon Dioxide Anion Gap BUN Creatinine Estim Creat Clear Calc Estimated GFR Random Glucose Lactic Acid Lactic Acid F/U @ 2Hr Calcium Phosphorus Magnesium Total Bilirubin Direct Bilirubin AST ALT Alkaline Phosphatase Troponin I High Sens B-Natriuretic Peptide Total Protein Albumin Urine Color Dark Yellow Urine Appearance Clear Urine pH 5.5 Ur Specific [place] 1.025 Urine Protein 30 (1+) H Urine Glucose (UA) Negative Urine Ketones Trace Urine Blood Negative Urine Nitrite Positive H Ur Leukocyte Esterase Trace H Urine RBC 0-2 Urine WBC 0-5 Ur Squamous Epith Cells 0-2 Urine Bacteria None Seen Hyaline Casts 11-20 Urine Opiates Screen POSITIVE H Urine Fentanyl Screen POSITIVE H Ur Barbiturates Screen Not Detected Ur Phencyclidine Scrn Not Detected Ur Amphetamines Screen Not Detected U Benzodiazepines Scrn Not Detected Urine Cocaine Screen Not Detected U Marijuana (THC) Screen Not Detected Ethyl Alcohol COVID-19 (TATIANNA) COVID-19 Clin Com Influenza Type A (JARVIS) Influenza Type B (JARVIS) Influenza A & B Note 05/23/22 05/23/22 05/24/22 21:45 21:45 05:08 WBC RBC Hgb Hct MCV MCH MCHC RDW Plt Count MPV Immature Gran % (Auto) Neut % (Auto) Lymph % (Auto) [place] % (Auto) Eos % (Auto) Baso % (Auto) Lymph # (Auto) [place] # (Auto) Eos # (Auto) Baso # (Auto) Abs Immat Gran (auto) Absolute Neuts (auto) Absolute Nucleated RBC Nucleated RBC % (auto) Neutrophils % (Manual) Band Neutrophils % Lymphocytes % (Manual) Monocytes % (Manual) Metamyelocytes % Myelocytes % Abs Neuts (Manual) Lymphocytes # (Manual) Monocytes # (Manual) Metamyelocytes # Myelocytes # Toxic Granulation Dohle Bodies Platelet Estimate Plt Morphology Comment RBC Morphology Polychromasia Hypochromasia Spherocytes Alejandro Cells D-Dimer High Sensitivty O2 Saturation ABG pH at Pt Temp ABG pCO2 at Pt Temp ABG pO2 at Pt Temp ABG HCO3 ABG Base Excess (Actual) VBG pH VBG pCO2 VBG pO2 VBG HCO3 VBG O2 Saturation VBG Base Excess Sodium 141 Potassium 4.1 Chloride 90 L Carbon Dioxide 44 H* Anion Gap 11 L BUN 34 H D Creatinine 0.65 Estim Creat Clear Calc 103.1 Estimated GFR > 60 Random Glucose 151 H D Lactic Acid Lactic Acid F/U @ 2Hr 2.0 Calcium 8.5 D Phosphorus 2.4 L Magnesium 2.0 Total Bilirubin 2.1 H Direct Bilirubin AST 13 D ALT 10 Alkaline Phosphatase 47 D Troponin I High Sens B-Natriuretic Peptide Total Protein 5.2 L D Albumin 2.8 L D Urine Color Urine Appearance Urine pH Ur Specific [place] Urine Protein Urine Glucose (UA) Urine Ketones Urine Blood Urine Nitrite Ur Leukocyte Esterase Urine RBC Urine WBC Ur Squamous Epith Cells Urine Bacteria Hyaline Casts Urine Opiates Screen Urine Fentanyl Screen Ur Barbiturates Screen Ur Phencyclidine Scrn Ur Amphetamines Screen U Benzodiazepines Scrn Urine Cocaine Screen U Marijuana (THC) Screen Ethyl Alcohol < 10 COVID-19 (TATIANNA) COVID-19 Clin Com Influenza Type A (JARVIS) Influenza Type B (JARVIS) Influenza A & B Note 05/24/22 05/24/22 05:12 08:14 WBC 5.8 RBC 3.70 L D Hgb 9.8 L D Hct 31.8 L D MCV 85.9 MCH 26.5 L MCHC 30.8 L RDW 16.7 H Plt Count 37 L D MPV 9.5 Immature Gran % (Auto) Cancelled Neut % (Auto) Cancelled Lymph % (Auto) Cancelled [place] % (Auto) Cancelled Eos % (Auto) Cancelled Baso % (Auto) Cancelled Lymph # (Auto) Cancelled [place] # (Auto) Cancelled Eos # (Auto) Cancelled Baso # (Auto) Cancelled Abs Immat Gran (auto) Cancelled Absolute Neuts (auto) Cancelled Absolute Nucleated RBC 0.000 Nucleated RBC % (auto) 0.0 Neutrophils % (Manual) 62 Band Neutrophils % 32 H Lymphocytes % (Manual) 3 L Monocytes % (Manual) 1 L Metamyelocytes % 2 Myelocytes % Abs Neuts (Manual) 5.5 Lymphocytes # (Manual) 0.2 L Monocytes # (Manual) 0.1 Metamyelocytes # 0.1 Myelocytes # Toxic Granulation PRESENT Dohle Bodies Platelet Estimate DECREASED Plt Morphology Comment NORMAL RBC Morphology NOTED Polychromasia 1+ (0-2) Hypochromasia 1+ (5-14) Spherocytes 2+ (3-5) Alejandro Cells 1+ (0-2) D-Dimer High Sensitivty O2 Saturation ABG pH at Pt Temp ABG pCO2 at Pt Temp ABG pO2 at Pt Temp ABG HCO3 ABG Base Excess (Actual) VBG pH 7.49 H VBG pCO2 67 VBG pO2 53 VBG HCO3 51 H VBG O2 Saturation 87.0 VBG Base Excess 24.2 Sodium Potassium Chloride Carbon Dioxide Anion Gap BUN Creatinine Estim Creat Clear Calc Estimated GFR Random Glucose Lactic Acid Lactic Acid F/U @ 2Hr Calcium Phosphorus Magnesium Total Bilirubin Direct Bilirubin AST ALT Alkaline Phosphatase Troponin I High Sens B-Natriuretic Peptide Total Protein Albumin Urine Color Urine Appearance Urine pH Ur Specific [place] Urine Protein Urine Glucose (UA) Urine Ketones Urine Blood Urine Nitrite Ur Leukocyte Esterase Urine RBC Urine WBC Ur Squamous Epith Cells Urine Bacteria Hyaline Casts Urine Opiates Screen Urine Fentanyl Screen Ur Barbiturates Screen Ur Phencyclidine Scrn Ur Amphetamines Screen U Benzodiazepines Scrn Urine Cocaine Screen U Marijuana (THC) Screen Ethyl Alcohol COVID-19 (TATIANNA) COVID-19 Clin Com Influenza Type A (JARVIS) Influenza Type B (JARVIS) Influenza A & B Note Progress Note: A&P Assessment and plan (1) Respiratory failure with hypoxia and hypercapnia: Status: Acute (2) Pneumonia: Status: Acute (3) COPD (chronic obstructive pulmonary disease): Status: Acute (4) HCV (hepatitis C virus): Status: Acute Plan Assessment: 56-year-old gentleman with underlying history of severe COPD admitted with acute on chronic hypoxic respiratory failure secondary to bilateral pneumonia now requiring BiPAP support. Plan: Neuro: No acute issues. Cardiac: No acute issues. Pulmonary: Acute on chronic hypoxic respiratory failure on the background of severe COPD now requiring BiPAP support on and off. Continue to titrate of positive pressure ventilation as tolerated. Underlying CO2 retention, started on acetazolamide. Renal: No acute issues. Endo: No acute issues. GI: No acute issues. ID: 1/2 blood cultures positive for gram-positive cocci, unclear AF con taminant. Continue on broad-spectrum antibiotics until cultures are finalized. Heme/Onc: No acute issues. Psych: No acute issues. Miscellaneous: No acute issues. Prophylaxis: Heparin Diet: regular Critical care time spent: 45 minutes Quality Stroke Does the patient have a stroke diagnosis?: No VTE Prior VTE?: No VTE Risk Level:: Medical - moderate - high VTE Device Contraindication: Treatment Not Indicated VTE Drug Contraindication: N/A - Med Ordered
[2022-05-24] MEDS: Metoprolol Tartrate 5 MG/5 ML VIAL IVPUSH ×2 (17:11→22:16)
[2022-05-24] MEDS: methADONE HCl 10 MG TABLET PO (19:30)
[2022-05-24] MEDS: vancomycin HCL 1,000 MG in 0.9 % Sodium Chloride 250 ML 250 MG IV (22:10)
[2022-05-24] MEDS: acetaZOLAMIDE sodium 500 MG VIAL 250 MG IVPUSH (22:11)
[2022-05-25] VITALS (19 sets, daily range): BP systolic 109–150; BP diastolic 62–95; PULSE 64–96; RESP 16–28; TEMP 36.4–37; O2SAT 89–96; BMI 18.3
[2022-05-25] MEDS: Piperacillin Sodium/Tazobactam 4.5 GM in 0.9 % Sodium Chloride 100 ML IV ×5 (00:02→23:57)
[2022-05-25] MEDS: Enoxaparin Sodium 40 MG/0.4 ML SYRINGE SUBCUT (00:04)
[2022-05-25] MEDS: methADONE HCl 10 MG TABLET PO ×4 (00:08→21:42)
[2022-05-25] MEDS: Albumin Human 25 % 100 ML IV ×3 (02:01→11:30)
[2022-05-25] MEDS: Metoprolol Tartrate 5 MG/5 ML VIAL IVPUSH (04:24)
--- NOTE | 2022-05-25 04:36 | PC.NURSE ---
Addendum entered by Hayde Leiva RN 05/25/22 05:04: RESP THERAPY WANTED TO APPLY BIPAP AT THE TIME OF DISTRESS AT 0415 BUT PT REFUSED. TRIED TO TALK TO PT TO EXPLAIN THE IMPORTANCE OF BIPAP BUT HE STILL REFUSED TO WEAR IT. Original Note: ASSUMED CARE OF PT AT 1900. PT WAS IRRITATED THAT HE HAD PAIN AND HAD NOT RECEIVED MEDICATION FOR IT. METHADONE RECENTLY ORDERED AND FIRST DOSE GIVEN AT 1930 WITH GOOD EFFECT. PT HAS TAKEN METHADONE APPROXIMATELY Q4H SINCE THAT FIRST DOSE DUE TO INCREASED ANXIETY AND PAIN. PT WAS RESTFUL AND CALM AFTER MED. NO ACUTE RESP DISTRESS ON NASAL CANNULA 5L. O2 SATS MID 90'S. LUNGS DIM WITH OCCASIONAL INSPIRATORY WHEEZING. SPOKE TO PROVIDER REGARDING BIPAP AND LONG PT NOT HAVING RESP DISTRESS, HE DOESN'T HAVE TO WEAR THE BIPAP MASK. AT 0415 PT ASKING FOR RESP TREATMENT BUT NOT DUE UNTIL 0600. HE WAS GETTING ANXIOUS AND WAS DUE FOR METHADONE AND SO IT WAS GIVEN. HE IS BETTER NOW AND NOT SO ANXIOUS. BREATHING IS IMPROVED.
[2022-05-25 05:13] LABS: VBG HCO3 36 mmol/L (22-26); VBG pCO2 59 mmHg; VBG pH 7.39 (7.32-7.43); VBG pO2 82 mmHg
[2022-05-25 05:20] LABS: MANUAL DIFF FLAG NO
[2022-05-25 05:23] LABS: Basophils Percent Auto 0.4 % (0-2); Hematocrit 29.2 % (42.0-52.0); Hemoglobin 9.1 g/dl (14.0-18.0); Imm Gran Abs Auto 0.04 X10*3/uL (0.00-0.03); Imm Gran Pct Auto 0.8 % (0.0-0.4); Lymphocytes Absolute Auto 0.2 X10*3/uL (1.2-4.9); Lymphocytes Percent Auto 4.7 % (20-40); Mean Corpuscular HGB Conc 31.2 g/dl (31.0-36.0); Mean Corpuscular Hemoglobin 26.5 pg (27.0-33.0); Mean Corpuscular Volume 84.9 fL (80.0-98.0); Mean Platelet Volume 8.8 fL (9.4-12.4); Monocytes Absolute Auto 0.3 X10*3/uL (0.1-1.2); Neutrophils Absolute Auto 4.1 x10*3/uL (2.0-8.3); Neutrophils Percent Auto 87.1 % (45-73); Red Blood Count 3.44 X10*6/uL (4.60-5.80); Red Cell Distribution Width 16.1 % (11.0-16.0); White Blood Count 4.7 X10*3/uL (4.8-10.8)
[2022-05-25 05:25] LABS: Platelet Count 27 X10*3/uL (160-400)
[2022-05-25 05:52] LABS: Albumin Level 3.3 g/dL (3.5-5.0); Anion Gap 10 (12-20); Blood Urea Nitrogen 23 mg/dL (9-16); Carbon Dioxide 33 mmol/L (22-29); Chloride 97 mmol/L (96-108); Creatinine Clr Calc Pharmacy 103.7; Estimated Glomerular Filt Rate > 60; Glucose Random 150 mg/dL (60-115); Phosphorus 2.9 mg/dL (2.7-4.5); Potassium 3.2 mmol/L (3.3-5.1); Sodium 137 mmol/L (135-145)
[2022-05-25 06:17] LABS: Venous Blood Gas Refer to POC result
[2022-05-25] MEDS: Albuterol/Iprat 2.5/0.5MG 3 ML AMPUL.NEB INHALE ×4 (06:34→22:39)
[2022-05-25 08:50] LABS: Vancomycin Trough 12.1 mcg/mL (10.0-20.0)
[2022-05-25] MEDS: acetaZOLAMIDE sodium 500 MG VIAL 250 MG IVPUSH ×2 (08:59→20:40)
[2022-05-25] MEDS: Potassium Chloride Packet 20 MEQ PACKET 40 MEQ PO (09:02)
--- NOTE | 2022-05-25 09:58 | PM.CCPN ---
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 On ER evaluation patient and significant respiratory distress requiring support with BiPAP. His CT angiogram chest with no evidence of pulmonary emboli, however with bilateral consolidative pneumonia. Patient started on broad-spectrum antibiotics and admitted to intensive care unit. No events overnight. Titrated off BiPAP. Critical Care Time (minutes): 0 Physical Exam Vital Signs: Vital Signs: Last Vital Signs Temp 97.5 F 05/25/22 08:00 Pulse 78 05/25/22 08:00 Resp 24 H 05/25/22 08:00 BP 138/74 05/25/22 08:00 Pulse Ox 90 L 05/25/22 08:00 O2 Del Method 05/25/22 08:00 O2 Flow Rate 5.0 05/25/22 08:00 FiO2 35 05/24/22 16:06 Oxygen Flow Rate 70 05/23/22 21:38 BMI result Body Mass Index 18.3 Const: General: no acute distress, alert and awake Eyes: Sclerae: sclerae normal EOM: EOMs intact bilaterally Neck: Neck: Yes no lymphadenopathy, Yes trachea midline and Yes supple Resp: Effort & Inspection: normal respiratory effort and no respiratory distress Auscultation: crackles (Bibasilar) Cardio: Rate: regular rate Rhythm: regular rhythm Heart sounds: no gallops, no murmurs and no rubs GI: Palpation (GI): Soft to palpation and Other GI palpation findings present ( Nontender) Auscultation: normal bowel sounds Extrem: General: Yes no pedal edema, No clubbing and No cyanosis Objective Data Labs CBC & Chem 7: 05/25/22 05:07 05/25/22 05:07 Labs: Laboratory Results - last 24 hr 05/25/22 05/25/22 05/25/22 05:07 05:07 05:08 WBC 4.7 L RBC 3.44 L Hgb 9.1 L Hct 29.2 L MCV 84.9 MCH 26.5 L MCHC 31.2 RDW 16.1 H Plt Count 27 L D MPV 8.8 L Immature Gran % (Auto) 0.8 H Neut % (Auto) 87.1 H Lymph % (Auto) 4.7 L [place] % (Auto) 7.0 Eos % (Auto) 0.0 Baso % (Auto) 0.4 Lymph # (Auto) 0.2 L [place] # (Auto) 0.3 Eos # (Auto) 0.0 Baso # (Auto) 0.0 Abs Immat Gran (auto) 0.04 H Absolute Neuts (auto) 4.1 Absolute Nucleated RBC 0.000 Nucleated RBC % (auto) 0.0 VBG pH 7.39 VBG pCO2 59 VBG pO2 82 VBG HCO3 36 H VBG O2 Saturation 97.0 VBG Base Excess 10.0 Sodium 137 Potassium 3.2 L D Chloride 97 Carbon Dioxide 33 H Anion Gap 10 L BUN 23 H Creatinine 0.62 Estim Creat Clear Calc 103.7 Estimated GFR > 60 Random Glucose 150 H Calcium 9.0 Phosphorus 2.9 Magnesium 2.0 Albumin 3.3 L Vancomycin Trough 05/25/22 08:05 WBC RBC Hgb Hct MCV MCH MCHC RDW Plt Count MPV Immature Gran % (Auto) Neut % (Auto) Lymph % (Auto) [place] % (Auto) Eos % (Auto) Baso % (Auto) Lymph # (Auto) [place] # (Auto) Eos # (Auto) Baso # (Auto) Abs Immat Gran (auto) Absolute Neuts (auto) Absolute Nucleated RBC Nucleated RBC % (auto) VBG pH VBG pCO2 VBG pO2 VBG HCO3 VBG O2 Saturation VBG Base Excess Sodium Potassium Chloride Carbon Dioxide Anion Gap BUN Creatinine Estim Creat Clear Calc Estimated GFR Random Glucose Calcium Phosphorus Magnesium Albumin Vancomycin Trough 12.1 Microbiology Microbiology Results: Microbiology 05/23/22 17:30 Blood - Venous Blood Culture - Final Coag negative Staphylococcus 05/23/22 17:25 Blood - Venous Blood Culture - Preliminary No growth after 24 hours. 05/23/22 19:40 Urine clean catch - Urine sarmiento top Urine Culture - Preliminary No growth to date. Progress Note: A&P Assessment and plan (1) COPD (chronic obstructive pulmonary disease): Status: Acute (2) Pneumonia: Status: Acute (3) Acute exacerbation of chronic obstructive airways disease: Status: Acute (4) HCV (hepatitis C virus): Status: Acute (5) Respiratory failure with hypoxia and hypercapnia: Status: Acute Plan Assessment: 56-year-old gentleman with underlying history of severe COPD admitted with acute on chronic hypoxic respiratory failure secondary to bilateral pneumonia now requiring BiPAP support. Plan: Neuro: No acute issues. Cardiac: No acute issues. Pulmonary: Acute on chronic hypoxic respiratory failure with bibasilar pneumonia on the background of severe COPD initially requiring BiPAP support on and off. Underlying CO2 retention, continue on acetazolamide. O2 sat goal of 88-92%, not higher than 93%. Renal: No acute issues. Endo: No acute issues. GI: No acute issues. ID: 1/2 blood cultures positive for gram-positive cocci, unclear if contaminant. Continue on broad-spectrum antibiotics until cultures are finalized. Underlying bibasilar pneumonia. Heme/Onc: Thrombocytopenia, Lovenox stopped. Psych: No acute issues. Miscellaneous: Restarted on methadone Prophylaxis: Intermittent pneumatic compression Diet: regular Quality Stroke Does the patient have a stroke diagnosis?: No VTE Prior VTE?: No VTE Risk Level:: Medical - moderate - high VTE Device Contraindication: Treatment Not Indicated VTE Drug Contraindication: N/A - Med Ordered
[2022-05-25] MEDS: Albuterol Sulfate (0.083%) 2.5 MG/3 ML VIAL.NEB INHALE (10:02)
[2022-05-25] MEDS: vancomycin HCL 1,000 MG in 0.9 % Sodium Chloride 250 ML 250 MG IV ×2 (10:03→21:50)
--- NOTE | 2022-05-25 10:36 | MHC.CM.PN ---
Patient remains in ICU. Per Dr Lazo, patient will transfer to [place]. Continue to monitor for d/c needs.
[2022-05-25] MEDS: Ketorolac Tromethamine 15 MG/ML VIAL IVPUSH (14:33)
[2022-05-26] VITALS (12 sets, daily range): BP systolic 137–159; BP diastolic 71–99; PULSE 72–102; RESP 16–28; TEMP 36.6–37.2; O2SAT 92–95; BMI 18.3
[2022-05-26] MEDS: Albuterol/Iprat 2.5/0.5MG 3 ML AMPUL.NEB INHALE ×3 (04:47→23:09)
[2022-05-26] MEDS: Piperacillin Sodium/Tazobactam 4.5 GM in 0.9 % Sodium Chloride 100 ML IV ×3 (05:19→18:12)
[2022-05-26] MEDS: methADONE HCl 10 MG TABLET PO ×4 (05:26→22:03)
[2022-05-26 06:37] LABS: Basophils Percent Auto 0.4 % (0-2); Eosinophils Percent Auto 0.8 % (0-4); Hemoglobin 10.4 g/dl (14.0-18.0); Imm Gran Abs Auto 0.03 X10*3/uL (0.00-0.03); Imm Gran Pct Auto 0.6 % (0.0-0.4); Lymphocytes Absolute Auto 0.5 X10*3/uL (1.2-4.9); Lymphocytes Percent Auto 8.9 % (20-40); MANUAL DIFF FLAG SCAN; Mean Corpuscular HGB Conc 31.5 g/dl (31.0-36.0); Mean Corpuscular Hemoglobin 26.7 pg (27.0-33.0); Mean Corpuscular Volume 84.6 fL (80.0-98.0); Mean Platelet Volume 9.2 fL (9.4-12.4); Monocytes Absolute Auto 0.3 X10*3/uL (0.1-1.2); Monocytes Percent Auto 6.7 % (2-11); Neutrophils Absolute Auto 4.2 x10*3/uL (2.0-8.3); Neutrophils Percent Auto 82.6 % (45-73); Red Cell Distribution Width 16.1 % (11.0-16.0); SCAN SMEAR FLAG 1; White Blood Count 5.1 X10*3/uL (4.8-10.8)
[2022-05-26 06:38] LABS: Platelet Count 27 X10*3/uL (160-400)
[2022-05-26 06:41] LABS: Venous Blood Gas Refer to POC result
[2022-05-26 06:41] LABS: VBG Base Excess 3.3 mmol/L; VBG HCO3 30 mmol/L (22-26); VBG pCO2 56 mmHg; VBG pH 7.33 (7.32-7.43); VBG pO2 42 mmHg
[2022-05-26 07:00] LABS: SLIDE REVIEW VERIFIED
[2022-05-26 07:26] LABS: Albumin Level 3.5 g/dL (3.5-5.0); Anion Gap 9 (12-20); Blood Urea Nitrogen 20 mg/dL (9-16); Calcium 8.8 mg/dL (8.4-10.2); Carbon Dioxide 30 mmol/L (22-29); Chloride 101 mmol/L (96-108); Creatinine Clr Calc Pharmacy 92.3; Estimated Glomerular Filt Rate > 60; Glucose Random 113 mg/dL (60-115); Magnesium 1.8 mg/dL (1.6-2.6); Phosphorus 2.5 mg/dL (2.7-4.5); Potassium 3.3 mmol/L (3.3-5.1); Sodium 137 mmol/L (135-145)
--- NOTE | 2022-05-26 08:57 | P.PNIM_ITS ---
Subjective Subjective Date of Service: 05/27/22 Interval History: seen in f/u for COPD interval hisory: breathing is more comfortable but overall not great Review of Systems sob cough no fever Physical Exam Vital Signs: Vital Signs: Last Vital Signs Temp 98.0 F 05/26/22 07:39 Pulse 84 05/26/22 07:39 Resp 18 05/26/22 07:39 BP 159/93 H 05/26/22 07:39 Pulse Ox 94 05/26/22 07:39 O2 Del Method 05/26/22 07:39 O2 Flow Rate 3 05/26/22 07:39 FiO2 35 05/24/22 16:06 Oxygen Flow Rate 70 05/23/22 21:38 BMI result Body Mass Index 18.3 Const: Other: General: AO X 3, no acute distress Resp: CTA bilateral CVS: S1,S2,RRR GI: +BS, NT, no distention Skin: No rash Neuro: motor grossly intact Psych: appropriate affect Objective Data Active Medications Acetazolamide (Acetazolamide Sodium 500 Mg Vial) 250 mg IVPUSH BID [facility] Last Admin: 05/25/22 20:40 Dose: 250 mg Documented By: TUNG Albuterol Sulfate (Albuterol Sulfate (0.083%) 2.5 Mg/3 Ml Vial.Neb) 2.5 mg INHALE Q2H PRN PRN Reason: wheezing or SOB Last Admin: 05/25/22 10:02 Dose: 2.5 mg Documented By: KAY Albuterol/Ipratropium (Albuterol/Iprat 2.5/0.5mg 3 Ml Ampul.Neb) 3 ml INHALE RQ6H [facility] Last Admin: 05/26/22 04:47 Dose: 3 ml Documented By: XAVIER Piperacillin Sod/Tazobactam (Sod 4.5 gm/ Sodium Chloride) 100 mls @ 200 mls/hr IV Q6H [facility] Last Infusion: 05/26/22 06:56 Dose: 0 mls/hr Documented By: TUNG Vancomycin HCl 1,000 mg/ (Sodium Chloride) 270 mls @ 270 mls/hr IV Q12H [facility] Last Infusion: 05/25/22 23:02 Dose: 0 mls/hr Documented By: TUNG Methadone HCl (Methadone Hcl 10 Mg Tablet) 10 mg PO Q4H PRN PRN Reason: anxiety/restlessness Last Admin: 05/26/22 05:26 Dose: 10 mg Documented By: TUNG Pharmacy Consult (Consult Rx Vancomycin Dosing) 1 each MISCELLANE DAILY PRN PRN Reason: Consult order Labs CBC & Chem 7: 05/26/22 06:28 05/27/22 06:18 Labs: Laboratory Results - last 24 hr 05/26/22 05/26/22 05/26/22 06:28 06:28 06:34 MCV 84.6 MCH 26.7 L MCHC 31.5 RDW 16.1 H Plt Count 27 L MPV 9.2 L Immature Gran % (Auto) 0.6 H Neut % (Auto) 82.6 H Lymph % (Auto) 8.9 L [place] % (Auto) 6.7 Eos % (Auto) 0.8 Baso % (Auto) 0.4 Lymph # (Auto) 0.5 L [place] # (Auto) 0.3 Eos # (Auto) 0.0 Baso # (Auto) 0.0 Abs Immat Gran (auto) 0.03 Absolute Neuts (auto) 4.2 Absolute Nucleated RBC 0.000 Nucleated RBC % (auto) 0.0 Smear Tech's Comments VERIFIED VBG pH 7.33 VBG pCO2 56 VBG pO2 42 VBG HCO3 30 H VBG O2 Saturation 67.0 VBG Base Excess 3.3 Anion Gap 9 L Estim Creat Clear Calc 92.3 Estimated GFR > 60 Random Glucose 113 Calcium 8.8 Phosphorus 2.5 L Magnesium 1.8 Albumin 3.5 Microbiology Microbiology Results: Microbiology 05/23/22 17:25 Blood Culture - Preliminary Blood - Venous No growth after 48 hours. 05/23/22 19:40 Urine Culture - Final Urine clean catch - Urine sarmiento top No growth. 05/23/22 17:30 Blood Culture - Final Blood - Venous Coag negative Staphylococcus Assessment and Plan (1) COPD (chronic obstructive pulmonary disease): Status: Acute (2) Pneumonia: Status: Acute Plan 56-year-old male with a past medical history of? oxygen-dependent COPD( 4 L baseline),? hepatitis-C,? IV drug and pulmonary nodules who presented to the emergency room? via ambulance with complaints of shortness of breath. ? EMS reported? patient stated he was short of breath in the last couple days, today was trying to give himself neb treatment but was unable,? patient was noted to be off nasal cannula,? satting 60% on room air.? On arrival to the emergency room patient was satting 65% on 4 L,? 70% on a non- rebreather,? required initiation of BiPAP. Plan: Acute hypoxic respiratory failure due to COPD and Pneumnia -Treated uderyling COPD and PNA--see below -keep O2 88 or above and no more than 93 Pneumonia--continue Zosyn and Vanco, follow cultures, change to Augentin and Doxy in a day Coag neg staph in blood culture is contamination NOT bacteremia Thrombocytopenia--likely from Hep C, no lovenox or heparin Opioid dependence--Methadone DVT Prophylaxis:? Intermittent pneumatic compression Diet: regular Need for inaptient: acute resp failure with copd, PNA requiring IV Abx, hypoxia not yet resolved Quality Stroke Does the patient have a stroke diagnosis?: No VTE Prior VTE?: No VTE Risk Level:: Medical - moderate - high VTE Device Contraindication: Treatment Not Indicated VTE Drug Contraindication: N/A - Med Ordered
[2022-05-26] MEDS: predniSONE 20 MG TABLET 40 MG PO (11:30)
[2022-05-26] MEDS: acetaZOLAMIDE sodium 500 MG VIAL 250 MG IVPUSH ×2 (11:31→21:38)
[2022-05-26] MEDS: vancomycin HCL 1,000 MG in 0.9 % Sodium Chloride 250 ML 166.67 MG IV ×2 (11:32→22:03)
--- NOTE | 2022-05-26 11:54 | P.CDIC_ITS ---
CDI Concurrent Query Documentation Clarification: PHYSICIAN'S DOCUMENTATION REQUEST Date of Query: 05/26/22 1151 Patient Name: Arnaud Triplett Admit Date: 05/23/22 Dear Doctor, A review of the medical record indicates additional documentation may be needed. Please review below and update the documentation accordingly. Clinical Indicators: Height: [] 5'7 Weight: [] 53.2 kg BMI: [] 18.4 Other Clinical Notes Supporting Significance of the BMI: Risk Factors/Clinical Indicators/Treatments Per Clinical Nutrition note 05/24/22: patient is moderately malnourished Patient with mildly depleted muscle mass and 7% nonsignificant weight loss x 6 months If possible, please provide an associated diagnosis related to the abnormal BMI, such as: For a BMI <= 19: * Underweight * Weight loss * Cachexia * Anorexia * Malnutrition (mild, moderate, severe) protein calorie Or: * BMI is not significant * Other (please specify) * Unable to determine Use of terms such as suspected, likely, concern for, or probable (associated with a specific diagnosis that is being evaluated, monitored, or treated as if it exists) are acceptable and can be coded in the inpatient setting, when documented at the time of discharge. Thank you, Brianna Nicole [insert CDI's credentials] Extension: [4-digit phone extension] Please use your independent medical judgment in providing your response. THIS QUERY IS PART OF THE PERMANENT MEDICAL RECORD Provider Response: Mild Protein-Calorie Malnutrition
--- NOTE | 2022-05-26 13:42 | MHC.CLN ---
F/U PT IS MODERATELY MALNOURISHED PT WITH MILDLY DEPLETED MUSCLE MASS AND 7% NON-SIGNIFCANT WT LOSS X 6 MONTHS DIET RX: REGULAR-APPROPRIATE RECOMMEND ADDING ENSURE BID TO INCREASE KCALS SUPP TO PROVIDE 700KCALS, 40G PROTEIN MONITOR PO INTAKE CLOSELY
[2022-05-26] MEDS: Morphine Sulfate 2 MG/ML CARTRIDGE IVPUSH ×2 (13:50→19:30)
[2022-05-26] MEDS: Albuterol Sulfate (0.083%) 2.5 MG/3 ML VIAL.NEB INHALE (14:37)
--- NOTE | 2022-05-26 15:35 | MHC.CM.PN ---
per rounds pt will be ready in 1 to 2 days dc plan home no services
[2022-05-26 20:43] LABS: Vancomycin Trough 14.9 mcg/mL (10.0-20.0)
--- NOTE | 2022-05-26 20:48 | HE.PHANOTE ---
Vancomycin Dosing Level therapeutic today. Renal function stable. Current regimen vancomycin 1000 mg Q12H. Janelle Smith, TomasD
[2022-05-27] VITALS (10 sets, daily range): BP systolic 136–167; BP diastolic 78–95; PULSE 82–96; RESP 16–24; TEMP 36.3–37.2; O2SAT 89–96; BMI 17.9
[2022-05-27] MEDS: Piperacillin Sodium/Tazobactam 4.5 GM in 0.9 % Sodium Chloride 100 ML IV ×4 (03:14→20:30)
[2022-05-27] MEDS: Albuterol/Iprat 2.5/0.5MG 3 ML AMPUL.NEB INHALE ×4 (05:43→23:46)
[2022-05-27 07:47] LABS: Estimated Glomerular Filt Rate > 60
[2022-05-27] MEDS: acetaZOLAMIDE sodium 500 MG VIAL 250 MG IVPUSH ×2 (11:44→20:30)
[2022-05-27] MEDS: Morphine Sulfate 2 MG/ML CARTRIDGE IVPUSH ×2 (11:44→22:39)
--- NOTE | 2022-05-27 11:46 | HO.PM.IMPN ---
Subjective Subjective Date of Service: 05/27/22 Interval History: seen in f/u for COPD interval hisory: breathing is more comfortable but overall not great Review of Systems sob cough no fever Physical Exam Vital Signs: Vital Signs: Last Vital Signs Temp 98.0 F 05/27/22 07:43 Pulse 96 05/27/22 10:31 Resp 22 H 05/27/22 10:31 BP 160/83 H 05/27/22 07:43 Pulse Ox 90 L 05/27/22 07:43 O2 Del Method 05/27/22 07:43 O2 Flow Rate 3 05/27/22 07:43 FiO2 45 05/26/22 12:00 Oxygen Flow Rate 70 05/23/22 21:38 BMI result Body Mass Index 17.9 Const: Other: General: AO X 3, no acute distress Resp: CTA bilateral CVS: S1,S2,RRR GI: +BS, NT, no distention Skin: No rash Neuro: motor grossly intact Psych: appropriate affect Objective Data Active Medications Acetazolamide (Acetazolamide Sodium 500 Mg Vial) 250 mg IVPUSH BID [facility] Last Admin: 05/26/22 21:38 Dose: 250 mg Documented By: SARWAT Albuterol Sulfate (Albuterol Sulfate (0.083%) 2.5 Mg/3 Ml Vial.Neb) 2.5 mg INHALE Q2H PRN PRN Reason: wheezing or SOB Last Admin: 05/26/22 14:37 Dose: 2.5 mg Documented By: ABELARDO Albuterol/Ipratropium (Albuterol/Iprat 2.5/0.5mg 3 Ml Ampul.Neb) 3 ml INHALE RQ6H [facility] Last Admin: 05/27/22 10:29 Dose: 3 ml Documented By: OBED Vancomycin HCl 1,000 mg/ (Sodium Chloride) 270 mls @ 270 mls/hr IV Q12H [facility] Last Infusion: 05/27/22 03:46 Dose: 166.6 mls/hr Documented By: SRIKANTH Piperacillin Sod/Tazobactam (Sod 4.5 gm/ Sodium Chloride) 100 mls @ 200 mls/hr IV Q6H [facility] Methadone HCl (Methadone Hcl 10 Mg Tablet) 10 mg PO Q4H PRN PRN Reason: anxiety/restlessness Last Admin: 05/26/22 22:03 Dose: 10 mg Documented By: SARWAT Morphine Sulfate (Morphine Sulfate 2 Mg/Ml Cartridge) 2 mg IVPUSH Q6H PRN; Protocol PRN Reason: Pain, Severe (Pain Scale 7-10) Last Admin: 05/27/22 11:44 Dose: 2 mg Documented By: YANIRA Pharmacy Consult (Consult Rx Vancomycin Dosing) 1 each MISCELLANE DAILY PRN PRN Reason: Consult order Prednisone (Prednisone 20 Mg Tablet) 40 mg PO DAILY [facility] Last Admin: 05/26/22 11:30 Dose: 40 mg Documented By: HELDER Labs 07/10/22 08:38 07/10/22 08:38 Labs: Laboratory Results - last 24 hr 05/26/22 05/27/22 20:05 06:18 Estim Creat Clear Calc 104.0 Estimated GFR > 60 Vancomycin Trough 14.9 Assessment and Plan (1) Acute exacerbation of chronic obstructive airways disease: Status: Acute (2) Severe chronic obstructive pulmonary disease: Status: Acute (3) COPD (chronic obstructive pulmonary disease): Status: Acute (4) Pneumonia: Status: Acute Plan 56-year-old male with a past medical history of? oxygen-dependent COPD( 4 L baseline),? hepatitis-C,? IV drug and pulmonary nodules who presented to the emergency room? via ambulance with complaints of shortness of breath. ? EMS reported? patient stated he was short of breath in the last couple days, today was trying to give himself neb treatment but was unable,? patient was noted to be off nasal cannula,? satting 60% on room air.? On arrival to the emergency room patient was satting 65% on 4 L,? 70% on a non-rebreather,? required initiation of BiPAP. Plan: Acute hypoxic respiratory failure due to COPD and Pneumnia -Treated uderyling COPD and PNA--see below -keep O2 88 or above and no more than 93 Pneumonia--continue Zosyn and Vanco, follow cultures, change to Augentin and Doxy before dc Coag neg staph in blood culture is contamination NOT bacteremia Thrombocytopenia--likely from Hep C, no lovenox or heparin Opioid dependence--Methadone DVT Prophylaxis:? Intermittent pneumatic compression Diet: regular Need for inaptient: acute resp failure with copd, PNA requiring IV Abx, hypoxia not yet resolved Quality Stroke Does the patient have a stroke diagnosis?: No VTE Prior VTE?: No VTE Risk Level:: Medical - moderate - high VTE Device Contraindication: Treatment Not Indicated VTE Drug Contraindication: N/A - Med Ordered
[2022-05-27] MEDS: predniSONE 20 MG TABLET 40 MG PO (11:51)
[2022-05-27] MEDS: vancomycin HCL 1,000 MG in 0.9 % Sodium Chloride 250 ML 166.6 MG IV (11:52)
[2022-05-27] MEDS: methADONE HCl 10 MG TABLET PO ×2 (13:14→20:32)
[2022-05-27] MEDS: vancomycin HCL 1,000 MG in 0.9 % Sodium Chloride 250 ML 270 MG IV (22:39)
[2022-05-27] MEDS: Magnesium Hydrox/Alum Hydrox 30 ML ORAL.SUSP PO (22:39)
[2022-05-28] VITALS (8 sets, daily range): BP systolic 146–164; BP diastolic 84–90; PULSE 65–94; RESP 12–20; TEMP 36–37.1; O2SAT 88–100; BMI 16.7
[2022-05-28] MEDS: methADONE HCl 10 MG TABLET PO ×3 (00:48→21:44)
[2022-05-28] MEDS: Piperacillin Sodium/Tazobactam 4.5 GM in 0.9 % Sodium Chloride 100 ML IV ×4 (03:19→21:38)
[2022-05-28] MEDS: Morphine Sulfate 2 MG/ML CARTRIDGE IVPUSH ×2 (04:31→15:54)
[2022-05-28] MEDS: acetaZOLAMIDE sodium 500 MG VIAL 250 MG IVPUSH ×2 (07:58→21:38)
[2022-05-28] MEDS: predniSONE 20 MG TABLET 40 MG PO (07:58)
[2022-05-28 08:09] LABS: Creatinine Clr Calc Pharmacy 100.6; Estimated Glomerular Filt Rate > 60
[2022-05-28 09:54] LABS: MANUAL DIFF FLAG NO
[2022-05-28 09:56] LABS: Basophils Percent Auto 0.4 % (0-2); Eosinophils Absolute Auto 0.1 X10*3/uL (0.0-0.4); Eosinophils Percent Auto 1.1 % (0-4); Hematocrit 32.2 % (42.0-52.0); Hemoglobin 10.9 g/dl (14.0-18.0); Imm Gran Abs Auto 0.15 X10*3/uL (0.00-0.03); Imm Gran Pct Auto 1.4 % (0.0-0.4); Lymphocytes Absolute Auto 0.6 X10*3/uL (1.2-4.9); Lymphocytes Percent Auto 5.7 % (20-40); Mean Corpuscular HGB Conc 33.9 g/dl (31.0-36.0); Mean Corpuscular Hemoglobin 27.1 pg (27.0-33.0); Mean Corpuscular Volume 80.1 fL (80.0-98.0); Mean Platelet Volume 8.8 fL (9.4-12.4); Monocytes Absolute Auto 0.6 X10*3/uL (0.1-1.2); Monocytes Percent Auto 5.4 % (2-11); Neutrophils Absolute Auto 9.3 x10*3/uL (2.0-8.3); Red Blood Count 4.02 X10*6/uL (4.60-5.80); Red Cell Distribution Width 16.1 % (11.0-16.0); White Blood Count 10.8 X10*3/uL (4.8-10.8)
[2022-05-28 10:06] LABS: Platelet Count 58 X10*3/uL (160-400)
[2022-05-28 10:20] LABS: Vancomycin Trough 14.4 mcg/mL (10.0-20.0)
--- NOTE | 2022-05-28 10:38 | HE.PHANOTE ---
Vancomycin Dosing Addendum Patients level came back this morning at 14.4 mg/L. Patients renal function remains stable. Increased dose to 1250 mg Q12H as patient has a respiratory infection. Will obtain a lab tomorrow 05/29 @0900 to ensure safety vs efficacy. Will monitor renal function as well. Predicted AUC 530 mg/L/hr.
[2022-05-28 10:39] LABS: Procalcitonin 0.15 ng/mL
[2022-05-28] MEDS: Albuterol/Iprat 2.5/0.5MG 3 ML AMPUL.NEB INHALE ×2 (10:53→23:52)
[2022-05-28] MEDS: vancomycin HCL 1,250 MG in 0.9 % Sodium Chloride 250 ML 166.67 MG IV ×2 (11:43→22:48)
--- NOTE | 2022-05-28 15:43 | P.PNIM_ITS ---
Subjective Subjective Date of Service: 05/28/22 Interval History: still short of breath + wheezing no fever cough improved Review of Systems Review of Systems: Yes all other systems are reviewed and are negative Physical Exam Vital Signs: Vital Signs: Last Vital Signs Temp 97.4 F 05/28/22 12:00 Pulse 65 05/28/22 12:00 Resp 12 05/28/22 12:00 BP 164/87 H 05/28/22 08:00 Pulse Ox 94 05/28/22 12:00 O2 Del Method 05/28/22 12:00 O2 Flow Rate 4.5 05/28/22 08:00 FiO2 45 05/26/22 12:00 Oxygen Flow Rate 70 05/23/22 21:38 BMI result Body Mass Index 16.7 Gen: in no acute distress HEENT: sclera anicteric, moist mucus membranes Neck: supple Lungs: expiratory wheezing Heart: regular rate and rhythm, no murmurs Abd: soft, non-tender, non-distended Ext: no edema Skin: warm/well-perfused Neuro: alert and oriented x3, no focal findings Psych: appropriate affect Objective Data Active Medications Acetazolamide (Acetazolamide Sodium 500 Mg Vial) 250 mg IVPUSH BID [facility] Last Admin: 05/28/22 07:58 Dose: 250 mg Documented By: ALISSA Albuterol Sulfate (Albuterol Sulfate (0.083%) 2.5 Mg/3 Ml Vial.Neb) 2.5 mg INHALE Q2H PRN PRN Reason: wheezing or SOB Last Admin: 05/26/22 14:37 Dose: 2.5 mg Documented By: ABELARDO Albuterol/Ipratropium (Albuterol/Iprat 2.5/0.5mg 3 Ml Ampul.Neb) 3 ml INHALE RQ6H [facility] Last Admin: 05/28/22 10:53 Dose: 3 ml Documented By: OBED Piperacillin Sod/Tazobactam (Sod 4.5 gm/ Sodium Chloride) 100 mls @ 200 mls/hr IV Q6H [facility] Last Infusion: 05/28/22 11:37 Dose: 0 mls/hr Documented By: ALISSA Vancomycin HCl 1,250 mg/ (Sodium Chloride) 250 mls @ 166.667 mls/hr IV Q12H [facility] Last Infusion: 05/28/22 15:14 Dose: 0 mls/hr Documented By: ALISSA Methadone HCl (Methadone Hcl 10 Mg Tablet) 10 mg PO Q4H PRN PRN Reason: anxiety/restlessness Last Admin: 05/28/22 07:58 Dose: 10 mg Documented By: ALISSA Morphine Sulfate (Morphine Sulfate 2 Mg/Ml Cartridge) 2 mg IVPUSH Q6H PRN; Protocol PRN Reason: Pain, Severe (Pain Scale 7-10) Last Admin: 05/28/22 04:31 Dose: 2 mg Documented By: ANNITA Pharmacy Consult (Consult Rx Vancomycin Dosing) 1 each MISCELLANE DAILY PRN PRN Reason: Consult order Prednisone (Prednisone 20 Mg Tablet) 40 mg PO DAILY [facility] Last Admin: 05/28/22 07:58 Dose: 40 mg Documented By: ALISSA Labs CBC & Chem 7: 05/28/22 09:31 05/28/22 07:47 Labs: Laboratory Results - last 24 hr 05/28/22 05/28/22 05/28/22 07:47 07:47 09:31 MCV 80.1 MCH 27.1 MCHC 33.9 RDW 16.1 H Plt Count 58 L D MPV 8.8 L Immature Gran % (Auto) 1.4 H Neut % (Auto) 86.0 H Lymph % (Auto) 5.7 L [place] % (Auto) 5.4 Eos % (Auto) 1.1 Baso % (Auto) 0.4 Lymph # (Auto) 0.6 L [place] # (Auto) 0.6 Eos # (Auto) 0.1 Baso # (Auto) 0.0 Abs Immat Gran (auto) 0.15 H Absolute Neuts (auto) 9.3 H Absolute Nucleated RBC 0.000 Nucleated RBC % (auto) 0.0 Estim Creat Clear Calc 100.6 Estimated GFR > 60 Procalcitonin Vancomycin Trough 14.4 05/28/22 09:31 MCV MCH MCHC RDW Plt Count MPV Immature Gran % (Auto) Neut % (Auto) Lymph % (Auto) [place] % (Auto) Eos % (Auto) Baso % (Auto) Lymph # (Auto) [place] # (Auto) Eos # (Auto) Baso # (Auto) Abs Immat Gran (auto) Absolute Neuts (auto) Absolute Nucleated RBC Nucleated RBC % (auto) Estim Creat Clear Calc Estimated GFR Procalcitonin 0.15 Vancomycin Trough Assessment and Plan (1) COPD (chronic obstructive pulmonary disease): Status: Acute (2) Pneumonia: Status: Acute Plan d#6 56yo M with COPD, chronic hypoxia on 4L O2, HCV, IDU + pulmonary nodules presenting with dyspnea + hypoxia, initially admitted to ICU on BiPAP, stepped- down to [facility] 05/25/22 # acute hypoxic resp failure due to COPD + PNA - wean O2 as tolerated, goal SaO2 88-92%, baseline O2 requirement of 4L- currently on 5L # PNA - continue vanco + pip-gal d#5, transition to doxy + amox-clav upon d/c # COPD exacerbation - continue steroids- wean- currently on prednisone 40 mg/d, nebs, acetazolamide # thrombocytopenia - likely due to PNA, improving # OUD - methadone # VTE ppx: SCDs # dispo: PT consult Quality Stroke Does the patient have a stroke diagnosis?: No VTE Prior VTE?: No VTE Risk Level:: Medical - moderate - high VTE Device Contraindication: Treatment Not Indicated VTE Drug Contraindication: N/A - Med Ordered
[2022-05-28] MEDS: Omeprazole 20 MG CAPSULE.DR PO (16:03)
[2022-05-29] VITALS (18 sets, daily range): BP systolic 120–154; BP diastolic 69–86; PULSE 68–108; RESP 16–23; TEMP 36.3–37.6; O2SAT 85–100; BMI 16.4
[2022-05-29] MEDS: Morphine Sulfate 2 MG/ML CARTRIDGE IVPUSH ×3 (00:22→23:43)
[2022-05-29] MEDS: Piperacillin Sodium/Tazobactam 4.5 GM in 0.9 % Sodium Chloride 100 ML IV ×4 (02:57→20:40)
[2022-05-29] MEDS: Omeprazole 20 MG CAPSULE.DR PO (06:06)
[2022-05-29] MEDS: Albuterol/Iprat 2.5/0.5MG 3 ML AMPUL.NEB INHALE ×3 (07:20→18:55)
[2022-05-29 09:18] LABS: Vancomycin Random 19.2 mcg/mL (15-20)
[2022-05-29] MEDS: predniSONE 20 MG TABLET 40 MG PO (09:30)
[2022-05-29] MEDS: acetaZOLAMIDE sodium 500 MG VIAL 250 MG IVPUSH (09:30)
[2022-05-29] MEDS: methADONE HCl 10 MG TABLET PO ×2 (09:31→20:40)
[2022-05-29 09:44] LABS: ABG Base Excess -2.2 mmol/L; ABG HCO3 21 mmol/L (22-26); ABG pCO2 33 mmHg (32-45); ABG pH 7.41 (7.35-7.45); ABG pO2 62 mmHg (83-108)
[2022-05-29 09:47] LABS: Hematocrit 34.8 % (42.0-52.0); Hemoglobin 11.4 g/dl (14.0-18.0); Mean Corpuscular HGB Conc 32.8 g/dl (31.0-36.0); Mean Corpuscular Hemoglobin 26.8 pg (27.0-33.0); Mean Corpuscular Volume 81.7 fL (80.0-98.0); Mean Platelet Volume 8.4 fL (9.4-12.4); Red Blood Count 4.26 X10*6/uL (4.60-5.80); Red Cell Distribution Width 16.5 % (11.0-16.0); White Blood Count 9.9 X10*3/uL (4.8-10.8)
[2022-05-29 09:49] LABS: Platelet Count 78 X10*3/uL (160-400)
[2022-05-29 10:12] LABS: Anion Gap 11 (12-20); Blood Urea Nitrogen 18 mg/dL (9-16); Calcium 8.2 mg/dL (8.4-10.2); Carbon Dioxide 23 mmol/L (22-29); Chloride 107 mmol/L (96-108); Creatinine Clr Calc Pharmacy 81.4; Estimated Glomerular Filt Rate > 60; Glucose Random 109 mg/dL (60-115); Potassium 3.8 mmol/L (3.3-5.1); Sodium 137 mmol/L (135-145)
--- NOTE | 2022-05-29 10:25 | HE.PHANOTE ---
RE JUAN TROUGH RETURNED @19.2, WILL LOWER DOSE BACK TO 1000MG Q12H. RANDOM FOR EFFICACY DUE @ 0900 ON 05/30 JOSHUA
[2022-05-29] MEDS: methylPREDNISolone Sod Succ 40 MG/ML VIAL IVPUSH ×2 (11:12→18:11)
[2022-05-29] MEDS: Furosemide 40 MG/4 ML VIAL IVPUSH (11:12)
[2022-05-29] MEDS: vancomycin HCL 1,000 MG in 0.9 % Sodium Chloride 250 ML 270 MG IV ×2 (11:16→23:44)
[2022-05-29 11:20] LABS: B Type Natriuretic Peptide 65 pg/mL (<100)
--- NOTE | 2022-05-29 12:07 | MHC.CLN ---
F/U PT IS MODERATELY MALNOURISHED SEE CLINICAL NUTRITION ASSESSMENT DATED 05/24/22 DIET RX: REGULAR-APPROPRIATE PO INTAKE VARIABLE 25-75% PT RECEIVING ENSURE BID TO INCREASE KCALS SUPP TO PROVIDE 700KCALS, 40G PROTEIN CONTINUE TO MONITOR PO INTAKE CLOSELY
--- NOTE | 2022-05-29 12:53 | P.PNIM_ITS ---
Subjective Subjective Date of Service: 05/29/22 Interval History: hypoxic and short of breath this morning placed on 12L via Oxymizer, then CPAP 8 cm H20 no chest pain no edema Review of Systems Review of Systems: Yes all other systems are reviewed and are negative Physical Exam Vital Signs: Vital Signs: Last Vital Signs Temp 97.3 F 05/29/22 11:36 Pulse 108 H 05/29/22 11:36 Resp 16 05/29/22 11:36 BP 120/69 05/29/22 11:36 Pulse Ox 97 05/29/22 11:36 O2 Del Method 05/29/22 11:36 O2 Flow Rate 5 05/29/22 11:36 FiO2 45 05/26/22 12:00 Oxygen Flow Rate 70 05/23/22 21:38 BMI result Body Mass Index 16.4 Gen: in moderate respiratory distress HEENT: sclera anicteric, moist mucus membranes Neck: supple Lungs: bilateral inspiratory crackles, tachypneic Heart: regular, tachycardic, no murmurs Abd: soft, non-tender, non-distended Ext: no edema Skin: warm/well-perfused Neuro: alert and oriented x3, no focal findings Psych: appropriate affect Objective Data Active Medications Acetazolamide (Acetazolamide Sodium 500 Mg Vial) 250 mg IVPUSH BID [facility] Last Admin: 05/29/22 09:30 Dose: 250 mg Documented By: SD Albuterol Sulfate (Albuterol Sulfate (0.083%) 2.5 Mg/3 Ml Vial.Neb) 2.5 mg INHALE Q2H PRN PRN Reason: wheezing or SOB Last Admin: 05/26/22 14:37 Dose: 2.5 mg Documented By: ABELARDO Albuterol/Ipratropium (Albuterol/Iprat 2.5/0.5mg 3 Ml Ampul.Neb) 3 ml INHALE RQ6H [facility] Last Admin: 05/29/22 10:50 Dose: 3 ml Documented By: OBED Piperacillin Sod/Tazobactam (Sod 4.5 gm/ Sodium Chloride) 100 mls @ 200 mls/hr IV Q6H [facility] Last Infusion: 05/29/22 11:04 Dose: 0 mls/hr Documented By: SD Vancomycin HCl 1,000 mg/ (Sodium Chloride) 270 mls @ 270 mls/hr IV Q12H [facility] Last Admin: 05/29/22 11:16 Dose: 270 mls/hr Documented By: SD Methadone HCl (Methadone Hcl 10 Mg Tablet) 10 mg PO Q4H PRN PRN Reason: anxiety/restlessness Last Admin: 05/29/22 09:31 Dose: 10 mg Documented By: SD Methylprednisolone Sodium Succinate (Methylprednisolone Sod Succ 40 Mg/Ml Vial) 40 mg IVPUSH Q8H [facility] Last Admin: 05/29/22 11:12 Dose: 40 mg Documented By: SD Morphine Sulfate (Morphine Sulfate 2 Mg/Ml Cartridge) 2 mg IVPUSH Q6H PRN; Protocol PRN Reason: Pain, Severe (Pain Scale 7-10) Last Admin: 05/29/22 00:22 Dose: 2 mg Documented By: TERESA Omeprazole (Omeprazole 20 Mg Capsule.Dr) 20 mg PO DAILY@0630 [facility] Last Admin: 05/29/22 06:06 Dose: 20 mg Documented By: HARMAN Pharmacy Consult (Consult Rx Vancomycin Dosing) 1 each MISCELLANE DAILY PRN PRN Reason: Consult order Labs CBC & Chem 7: 05/29/22 09:41 05/29/22 09:41 Labs: Laboratory Results - last 24 hr 05/29/22 05/29/22 05/29/22 08:52 09:38 09:41 MCV MCH MCHC RDW Plt Count MPV Absolute Nucleated RBC Nucleated RBC % (auto) O2 Saturation 90.0 ABG pH at Pt Temp 7.41 ABG pCO2 at Pt Temp 33 ABG pO2 at Pt Temp 62 L ABG HCO3 21 L ABG Base Excess (Actual) -2.2 Anion Gap 11 L Estim Creat Clear Calc 81.4 Estimated GFR > 60 Random Glucose 109 Calcium 8.2 L D B-Natriuretic Peptide Random Vancomycin 19.2 05/29/22 05/29/22 09:41 10:48 MCV 81.7 MCH 26.8 L MCHC 32.8 RDW 16.5 H Plt Count 78 L D MPV 8.4 L Absolute Nucleated RBC 0.000 Nucleated RBC % (auto) 0.0 O2 Saturation ABG pH at Pt Temp ABG pCO2 at Pt Temp ABG pO2 at Pt Temp ABG HCO3 ABG Base Excess (Actual) Anion Gap Estim Creat Clear Calc Estimated GFR Random Glucose Calcium B-Natriuretic Peptide 65 Random Vancomycin Microbiology Microbiology Results: Microbiology 05/23/22 17:25 Blood Culture - Final Blood - Venous No growth after 5 days. Assessment and Plan (1) COPD (chronic obstructive pulmonary disease): Status: Acute (2) Pneumonia: Status: Acute Plan d#7 56yo M with COPD, chronic hypoxia on 4L O2, HCV, IDU + pulmonary nodules presenting with dyspnea + hypoxia, initially admitted to ICU on BiPAP, stepped- down to [facility] 05/25/22 # acute hypoxic resp failure due to COPD + PNA - on CPAP now, goal SaO2 88-92% [baseline O2 requirement 4L]. will perform CT angio to r/o PE. # PNA - continue vanco + pip-gal d#6, eventual transition to doxy + amox-clav upon d/c # COPD exacerbation - continue steroids- increase to methylprednisolone 40 mg q8h. continue nebs. # thrombocytopenia - likely due to PNA, improving # OUD - methadone # VTE ppx: SCDs # dispo: eventual STR In my clinical judgment, the patient requires continued inpatient hospitalization for the following reasons: hypoxia Quality Stroke Does the patient have a stroke diagnosis?: No VTE Prior VTE?: No VTE Risk Level:: Medical - moderate - high VTE Device Contraindication: Treatment Not Indicated VTE Drug Contraindication: N/A - Med Ordered
--- NOTE | 2022-05-29 13:07 | MHC.CM.PN ---
Per ROUNDS discussion, Patient is on CPAP now and is not yet medically cleared for dc. PT is recommending STR and CM will continue to follow.
[2022-05-29] MEDS: iohexoL 350 MG/ML 100 ML INFUS..BTL IV (17:19)
[2022-05-30] VITALS (10 sets, daily range): BP systolic 115–143; BP diastolic 70–81; PULSE 81–112; RESP 16–22; TEMP 36.8–37.6; O2SAT 95–99; BMI 17.6
[2022-05-30 02:28] LABS: ABG Refer to POC result
[2022-05-30] MEDS: methylPREDNISolone Sod Succ 40 MG/ML VIAL IVPUSH ×3 (04:27→20:37)
[2022-05-30] MEDS: Piperacillin Sodium/Tazobactam 4.5 GM in 0.9 % Sodium Chloride 100 ML IV ×4 (04:39→20:33)
[2022-05-30 06:26] LABS: Venous Blood Gas Refer to POC result
[2022-05-30 06:27] LABS: VBG HCO3 24 mmol/L (22-26); VBG pCO2 37 mmHg; VBG pH 7.41 (7.32-7.43); VBG pO2 87 mmHg
[2022-05-30 06:27] LABS: Hematocrit 29.9 % (42.0-52.0); Mean Corpuscular HGB Conc 33.4 g/dl (31.0-36.0); Mean Corpuscular Hemoglobin 26.7 pg (27.0-33.0); Mean Corpuscular Volume 79.7 fL (80.0-98.0); Mean Platelet Volume 9.6 fL (9.4-12.4); Red Blood Count 3.75 X10*6/uL (4.60-5.80); Red Cell Distribution Width 16.2 % (11.0-16.0); White Blood Count 5.8 X10*3/uL (4.8-10.8)
[2022-05-30 06:28] LABS: Platelet Count 77 X10*3/uL (160-400)
[2022-05-30] MEDS: Morphine Sulfate 2 MG/ML CARTRIDGE IVPUSH ×3 (06:36→15:44)
[2022-05-30] MEDS: Omeprazole 20 MG CAPSULE.DR PO (06:36)
[2022-05-30 06:40] LABS: Anion Gap 9 (12-20); Blood Urea Nitrogen 19 mg/dL (9-16); Calcium 8.3 mg/dL (8.4-10.2); Carbon Dioxide 28 mmol/L (22-29); Chloride 107 mmol/L (96-108); Creatinine Clr Calc Pharmacy 87.6; Estimated Glomerular Filt Rate > 60; Glucose Random 137 mg/dL (60-115); Potassium 3.6 mmol/L (3.3-5.1); Sodium 140 mmol/L (135-145)
[2022-05-30 07:02] LABS: Procalcitonin 0.18 ng/mL
[2022-05-30 09:21] LABS: Vancomycin Random 16.3 mcg/mL (15-20)
[2022-05-30] MEDS: vancomycin HCL 1,000 MG in 0.9 % Sodium Chloride 250 ML 270 MG IV ×2 (10:07→23:51)
--- NOTE | 2022-05-30 11:04 | P.PNIM_ITS ---
Subjective Subjective Date of Service: 05/30/22 Interval History: hypoxia improving, now on 7L O2 via NC dyspnea improving Review of Systems Review of Systems: Yes all other systems are reviewed and are negative Physical Exam Vital Signs: Vital Signs: Last Vital Signs Temp 98.4 F 05/30/22 07:42 Pulse 81 05/30/22 07:42 Resp 20 05/30/22 07:42 BP 138/78 05/30/22 07:42 Pulse Ox 97 05/30/22 07:42 O2 Del Method 05/30/22 07:42 O2 Flow Rate 7 05/30/22 07:42 FiO2 45 05/26/22 12:00 Oxygen Flow Rate 70 05/23/22 21:38 BMI result Body Mass Index 17.6 Gen: in no acute distress HEENT: sclera anicteric, moist mucus membranes Neck: supple Lungs: expiratory wheezing Heart: regular rate and rhythm, no murmurs Abd: soft, non-tender, non-distended Ext: no edema Skin: warm/well-perfused Neuro: alert and oriented x3, no focal findings Psych: appropriate affect Objective Data Active Medications Albuterol Sulfate (Albuterol Sulfate (0.083%) 2.5 Mg/3 Ml Vial.Neb) 2.5 mg INHALE Q2H PRN PRN Reason: wheezing or SOB Last Admin: 05/26/22 14:37 Dose: 2.5 mg Documented By: ABELARDO Albuterol/Ipratropium (Albuterol/Iprat 2.5/0.5mg 3 Ml Ampul.Neb) 3 ml INHALE RQ4H [facility] Piperacillin Sod/Tazobactam (Sod 4.5 gm/ Sodium Chloride) 100 mls @ 200 mls/hr IV Q6H [facility] Last Admin: 05/30/22 10:05 Dose: 200 mls/hr Documented By: YANIRA Vancomycin HCl 1,000 mg/ (Sodium Chloride) 270 mls @ 270 mls/hr IV Q12H [facility] Last Admin: 05/30/22 10:07 Dose: 270 mls/hr Documented By: YANIRA Methadone HCl (Methadone Hcl 10 Mg Tablet) 10 mg PO Q4H PRN PRN Reason: anxiety/restlessness Last Admin: 05/29/22 20:40 Dose: 10 mg Documented By: SARWAT Methylprednisolone Sodium Succinate (Methylprednisolone Sod Succ 40 Mg/Ml Vial) 40 mg IVPUSH Q8H [facility] Last Admin: 05/30/22 10:04 Dose: 40 mg Documented By: YANIRA Morphine Sulfate (Morphine Sulfate 2 Mg/Ml Cartridge) 2 mg IVPUSH Q6H PRN; Protocol PRN Reason: Pain, Severe (Pain Scale 7-10) Last Admin: 05/30/22 10:06 Dose: 2 mg Documented By: YANIRA Omeprazole (Omeprazole 20 Mg Capsule.Dr) 20 mg PO DAILY@0630 [facility] Last Admin: 05/30/22 06:36 Dose: 20 mg Documented By: SARWAT Pharmacy Consult (Consult Rx Vancomycin Dosing) 1 each MISCELLANE DAILY PRN PRN Reason: Consult order Labs CBC & Chem 7: 05/30/22 06:12 05/30/22 06:12 Labs: Laboratory Results - last 24 hr 05/29/22 05/30/22 05/30/22 10:48 06:12 06:12 MCV 79.7 L MCH 26.7 L MCHC 33.4 RDW 16.2 H Plt Count 77 L MPV 9.6 Absolute Nucleated RBC 0.000 Nucleated RBC % (auto) 0.0 VBG pH VBG pCO2 VBG pO2 VBG HCO3 VBG O2 Saturation VBG Base Excess Anion Gap 9 L Estim Creat Clear Calc 87.6 Estimated GFR > 60 Random Glucose 137 H Calcium 8.3 L B-Natriuretic Peptide 65 Procalcitonin Random Vancomycin 05/30/22 05/30/22 05/30/22 06:12 06:17 08:44 MCV MCH MCHC RDW Plt Count MPV Absolute Nucleated RBC Nucleated RBC % (auto) VBG pH 7.41 VBG pCO2 37 VBG pO2 87 VBG HCO3 24 VBG O2 Saturation 99.0 VBG Base Excess 0.0 Anion Gap Estim Creat Clear Calc Estimated GFR Random Glucose Calcium B-Natriuretic Peptide Procalcitonin 0.18 Random Vancomycin 16.3 Impressions Chest CTA 05/29/22 17:15 IMPRESSION: 1. No evidence of pulmonary embolism. 2. Redemonstration of bronchiectasis with bronchial wall thickening and consolidation at both lung bases. 3. Persistent extensive tree-in-bud opacities in the lungs bilaterally but these have improved since prior study 05/23/2022. Dense consolidation at both lung bases. 4. Bilateral pleural effusions 5. VTE: negative Assessment and Plan (1) COPD (chronic obstructive pulmonary disease): Status: Acute (2) Pneumonia: Status: Acute Plan d#8 56yo M with COPD, chronic hypoxia on 4L O2, HCV, IDU + pulmonary nodules presenting with dyspnea + hypoxia, initially admitted to ICU on BiPAP, stepped- down to [facility] 05/25/22 # acute hypoxic resp failure due to COPD + PNA - on CPAP now, goal SaO2 88-92% [baseline O2 requirement 4L]. CTA negative for PE # PNA - continue vanco + pip-gal d#7, eventual transition to doxy + amox-clav upon d/c # COPD exacerbation - continue steroids- increased yesterday methylprednisolone 40 mg q8h- taper eventually. continue nebs. # thrombocytopenia - likely due to PNA, improving # OUD - methadone # VTE ppx: SCDs, no heparin given low plts # dispo: eventual STR In my clinical judgment, the patient requires continued inpatient hospitalization for the following reasons: hypoxia Quality Stroke Does the patient have a stroke diagnosis?: No VTE Prior VTE?: No VTE Risk Level:: Medical - moderate - high VTE Device Contraindication: Treatment Not Indicated VTE Drug Contraindication: N/A - Med Ordered
[2022-05-30] MEDS: Albuterol/Iprat 2.5/0.5MG 3 ML AMPUL.NEB INHALE ×4 (12:04→23:30)
[2022-05-30] MEDS: oxyCODONE HCl Immed Release 5 MG TABLET PO ×2 (15:40→23:52)
[2022-05-30] MEDS: methADONE HCl 10 MG TABLET PO (20:40)
[2022-05-31] VITALS (13 sets, daily range): BP systolic 113–142; BP diastolic 75–87; PULSE 84–115; RESP 15–22; TEMP 36–37.3; O2SAT 87–98; BMI 18.1
[2022-05-31] MEDS: methylPREDNISolone Sod Succ 40 MG/ML VIAL IVPUSH ×2 (03:10→14:20)
[2022-05-31] MEDS: Morphine Sulfate 2 MG/ML CARTRIDGE IVPUSH ×2 (03:10→10:34)
[2022-05-31] MEDS: Piperacillin Sodium/Tazobactam 4.5 GM in 0.9 % Sodium Chloride 100 ML IV ×4 (03:15→21:43)
[2022-05-31] MEDS: Albuterol/Iprat 2.5/0.5MG 3 ML AMPUL.NEB INHALE ×5 (05:16→19:48)
[2022-05-31 06:11] LABS: Venous Blood Gas Refer to POC result
[2022-05-31 06:13] LABS: VBG Base Excess 1.3 mmol/L; VBG HCO3 25 mmol/L (22-26); VBG pCO2 36 mmHg; VBG pH 7.44 (7.32-7.43); VBG pO2 106 mmHg
[2022-05-31 06:19] LABS: Hematocrit 29.9 % (42.0-52.0); Hemoglobin 9.9 g/dl (14.0-18.0); Mean Corpuscular HGB Conc 33.1 g/dl (31.0-36.0); Mean Corpuscular Volume 81.7 fL (80.0-98.0); Mean Platelet Volume 9.2 fL (9.4-12.4); Red Blood Count 3.66 X10*6/uL (4.60-5.80); Red Cell Distribution Width 16.5 % (11.0-16.0); White Blood Count 5.8 X10*3/uL (4.8-10.8)
[2022-05-31 06:20] LABS: Platelet Count 95 X10*3/uL (160-400)
[2022-05-31 06:29] LABS: Anion Gap 8 (12-20); Blood Urea Nitrogen 20 mg/dL (9-16); Calcium 8.3 mg/dL (8.4-10.2); Carbon Dioxide 27 mmol/L (22-29); Chloride 107 mmol/L (96-108); Creatinine Clr Calc Pharmacy 78.7; Estimated Glomerular Filt Rate > 60; Glucose Random 152 mg/dL (60-115); Potassium 3.6 mmol/L (3.3-5.1); Sodium 138 mmol/L (135-145)
[2022-05-31] MEDS: Omeprazole 20 MG CAPSULE.DR PO (06:33)
[2022-05-31] MEDS: oxyCODONE HCl Immed Release 5 MG TABLET PO (09:18)
[2022-05-31] MEDS: vancomycin HCL 1,000 MG in 0.9 % Sodium Chloride 250 ML 270 MG IV (10:34)
--- NOTE | 2022-05-31 10:55 | MHC.CLN ---
F/U PO 50-75% SLIGHTLY IMPROVED DIET RX: REGULAR-APPROPRIATE PT RECEIVING ENSURE BID TO INCREASE KCALS PROVIDES 700KCALS, 40G PROTEIN CONTINUE TO MONITOR PO INTAKE CLOSELY
--- NOTE | 2022-05-31 11:29 | HO.PM.IMPN ---
Subjective Subjective Date of Service: 05/31/22 Interval History: breathing improved- less dyspnea, on 5.5L O2 currently Review of Systems Review of Systems: Yes all other systems are reviewed and are negative Physical Exam Vital Signs: Vital Signs: Last Vital Signs Temp 97.9 F 05/31/22 07:36 Pulse 87 05/31/22 08:19 Resp 18 05/31/22 08:19 BP 142/86 H 05/31/22 07:36 Pulse Ox 95 05/31/22 07:36 O2 Del Method 05/31/22 07:36 O2 Flow Rate 6 05/31/22 07:36 FiO2 45 05/26/22 12:00 Oxygen Flow Rate 70 05/23/22 21:38 BMI result Body Mass Index 18.1 Gen: in no acute distress HEENT: sclera anicteric, moist mucus membranes Neck: supple Lungs: soft expiratory wheezing Heart: regular rate and rhythm, no murmurs Abd: soft, non-tender, non-distended Ext: no edema Skin: warm/well-perfused Neuro: alert and oriented x3, no focal findings Psych: appropriate affect Objective Data Active Medications Albuterol Sulfate (Albuterol Sulfate (0.083%) 2.5 Mg/3 Ml Vial.Neb) 2.5 mg INHALE Q2H PRN PRN Reason: wheezing or SOB Last Admin: 05/26/22 14:37 Dose: 2.5 mg Documented By: ABELARDO Albuterol/Ipratropium (Albuterol/Iprat 2.5/0.5mg 3 Ml Ampul.Neb) 3 ml INHALE RQ4H [facility] Last Admin: 05/31/22 08:18 Dose: 3 ml Documented By: ISIDRA Piperacillin Sod/Tazobactam (Sod 4.5 gm/ Sodium Chloride) 100 mls @ 200 mls/hr IV Q6H [facility] Last Infusion: 05/31/22 10:27 Dose: 0 mls/hr Documented By: CARLIE-HERMELINDA Vancomycin HCl 1,000 mg/ (Sodium Chloride) 270 mls @ 270 mls/hr IV Q12H [facility] Last Admin: 05/31/22 10:34 Dose: 270 mls/hr Documented By: CARLIE-SOFFA Methadone HCl (Methadone Hcl 10 Mg Tablet) 10 mg PO Q4H PRN PRN Reason: anxiety/restlessness Last Admin: 05/30/22 20:40 Dose: 10 mg Documented By: ROSEMARY Methylprednisolone Sodium Succinate (Methylprednisolone Sod Succ 40 Mg/Ml Vial) 40 mg IVPUSH Q12H [facility] Morphine Sulfate (Morphine Sulfate 2 Mg/Ml Cartridge) 2 mg IVPUSH Q6H PRN; Protocol PRN Reason: Pain, Severe (Pain Scale 7-10) Last Admin: 05/31/22 10:34 Dose: 2 mg Documented By: ADRIA Omeprazole (Omeprazole 20 Mg Capsule.Dr) 20 mg PO DAILY@0630 [facility] Last Admin: 05/31/22 06:33 Dose: 20 mg Documented By: ROSEMARY Oxycodone HCl (Oxycodone Hcl Immed Release 5 Mg Tablet) 5 mg PO Q6H PRN PRN Reason: sev pain Last Admin: 05/31/22 09:18 Dose: 5 mg Documented By: ADRIA Pharmacy Consult (Consult Rx Vancomycin Dosing) 1 each MISCELLANE DAILY PRN PRN Reason: Consult order Labs CBC & Chem 7: 05/31/22 06:04 05/31/22 06:04 Labs: Laboratory Results - last 24 hr 05/31/22 05/31/22 05/31/22 06:04 06:04 06:08 MCV 81.7 MCH 27.0 MCHC 33.1 RDW 16.5 H Plt Count 95 L MPV 9.2 L Absolute Nucleated RBC 0.000 Nucleated RBC % (auto) 0.0 VBG pH 7.44 H VBG pCO2 36 VBG pO2 106 VBG HCO3 25 VBG O2 Saturation 99.0 VBG Base Excess 1.3 Anion Gap 8 L Estim Creat Clear Calc 78.7 Estimated GFR > 60 Random Glucose 152 H Calcium 8.3 L Assessment and Plan (1) COPD (chronic obstructive pulmonary disease): Status: Acute (2) Pneumonia: Status: Acute Plan d#9 56yo M with COPD, chronic hypoxia on 4L O2, HCV, IDU + pulmonary nodules presenting with dyspnea + hypoxia, initially admitted to ICU on BiPAP, stepped-down to [facility] 05/25/22 # acute hypoxic resp failure due to COPD + PNA - on CPAP now, goal SaO2 88-92% [baseline O2 requirement 4L]. CTA negative for PE # PNA - continue vanco + pip-gal d#8, eventual transition to doxy + amox-clav upon d/c possibly tomorrow # COPD exacerbation - start to taper methylprednisolone; continue nebs. # thrombocytopenia - likely due to PNA, improving # OUD - methadone # VTE ppx: SCDs, no heparin given low plts # dispo: eventual STR likely tomorrow In my clinical judgment, the patient requires continued inpatient hospitalization for the following reasons: hypoxia Quality Stroke Does the patient have a stroke diagnosis?: No VTE Prior VTE?: No VTE Risk Level:: Medical - moderate - high VTE Device Contraindication: Treatment Not Indicated VTE Drug Contraindication: N/A - Med Ordered
[2022-05-31] MEDS: methADONE HCl 10 MG TABLET PO ×2 (11:44→21:43)
--- NOTE | 2022-05-31 14:11 | MHC.CM.PN ---
per rounds jewell see tomorrow search continues
[2022-05-31] MEDS: Morphine Sulfate 2 MG/ML CARTRIDGE 4 MG IVPUSH ×2 (16:02→22:38)
[2022-05-31] MEDS: oxyCODONE HCl Immed Release 5 MG TABLET 10 MG PO (17:59)
[2022-05-31 21:46] LABS: Vancomycin Random 12.6 mcg/mL (15-20)
[2022-06-01] VITALS (13 sets, daily range): BP systolic 130–135; BP diastolic 75–88; PULSE 86–108; RESP 12–24; TEMP 36.6–37.1; O2SAT 89–97; BMI 18.8
[2022-06-01] MEDS: vancomycin HCL 1,000 MG in 0.9 % Sodium Chloride 250 ML 270 MG IV (00:11)
[2022-06-01] MEDS: Albuterol/Iprat 2.5/0.5MG 3 ML AMPUL.NEB INHALE ×6 (00:21→23:51)
[2022-06-01] MEDS: oxyCODONE HCl Immed Release 5 MG TABLET 10 MG PO ×3 (03:16→15:28)
[2022-06-01] MEDS: methylPREDNISolone Sod Succ 40 MG/ML VIAL IVPUSH ×2 (03:16→15:28)
[2022-06-01] MEDS: Piperacillin Sodium/Tazobactam 4.5 GM in 0.9 % Sodium Chloride 100 ML IV (03:17)
[2022-06-01] MEDS: Omeprazole 20 MG CAPSULE.DR PO (05:54)
[2022-06-01] MEDS: Morphine Sulfate 2 MG/ML CARTRIDGE 4 MG IVPUSH ×2 (06:15→12:31)
[2022-06-01 06:42] LABS: Creatinine Clr Calc Pharmacy 90.1; Estimated Glomerular Filt Rate > 60
--- NOTE | 2022-06-01 07:35 | HE.PHANOTE ---
RE JUAN CONTINUE CURRENT DOSE. NEXT TROUGH DUE 06/02 @0900 JOSHUA
[2022-06-01] MEDS: Doxycycline Monohydrate 100 MG CAPSULE PO ×2 (09:15→19:56)
[2022-06-01] MEDS: methADONE HCl 10 MG TABLET PO (09:16)
[2022-06-01] MEDS: Amoxicillin/Potassium Clav 875 MG TABLET PO ×2 (09:53→19:56)
[2022-06-01 10:32] LABS: COVID-19 Test Negative (Negative); IDNOW Serial# BCCEAD1C
--- NOTE | 2022-06-01 15:55 | HO.PM.IMPN ---
Subjective Subjective Date of Service: 06/01/22 Interval History: hypoxic again this AM and placed on CPAP briefly Review of Systems Review of Systems: Yes all other systems are reviewed and are negative Physical Exam Vital Signs: Vital Signs: Last Vital Signs Temp 98.7 F 06/01/22 15:25 Pulse 89 06/01/22 15:25 Resp 18 06/01/22 15:25 BP 133/84 06/01/22 15:25 Pulse Ox 92 06/01/22 15:25 O2 Del Method 06/01/22 15:25 O2 Flow Rate 4 06/01/22 15:25 FiO2 45 05/26/22 12:00 Oxygen Flow Rate 70 05/23/22 21:38 BMI result Body Mass Index 18.8 Gen: short of breath HEENT: sclera anicteric, moist mucus membranes Neck: supple Lungs: soft expiratory wheezing Heart: regular rate and rhythm, no murmurs Abd: soft, non-tender, non-distended Ext: no edema Skin: warm/well-perfused Neuro: alert and oriented x3, no focal findings Psych: appropriate affect ? Objective Data Active Medications Albuterol/Ipratropium (Albuterol/Iprat 2.5/0.5mg 3 Ml Ampul.Neb) 3 ml INHALE RQ4H [facility] Last Admin: 06/01/22 15:11 Dose: 3 ml Documented By: OBED Amoxicillin/Clavulanate Potassium (Amoxicillin/Potassium Clav 875 Mg Tablet) 875 mg PO Q12H [facility] Last Admin: 06/01/22 09:53 Dose: 875 mg Documented By: CATARINO Doxycycline Monohydrate (Doxycycline Monohydrate 100 Mg Capsule) 100 mg PO Q12H [facility] Last Admin: 06/01/22 09:15 Dose: 100 mg Documented By: CATARINO Methadone HCl (Methadone Hcl 10 Mg Tablet) 10 mg PO Q4H PRN PRN Reason: anxiety/restlessness Last Admin: 06/01/22 09:16 Dose: 10 mg Documented By: CATARINO Methylprednisolone Sodium Succinate (Methylprednisolone Sod Succ 40 Mg/Ml Vial) 40 mg IVPUSH Q12H [facility] Last Admin: 06/01/22 15:28 Dose: 40 mg Documented By: CATARINO Morphine Sulfate (Morphine Sulfate 2 Mg/Ml Cartridge) 4 mg IVPUSH Q6H PRN; Protocol PRN Reason: Pain, Severe (Pain Scale 7-10) Last Admin: 06/01/22 12:31 Dose: 4 mg Documented By: CATARINO Omeprazole (Omeprazole 20 Mg Capsule.Dr) 20 mg PO DAILY@0630 [facility] Last Admin: 06/01/22 05:54 Dose: 20 mg Documented By: VALERI Oxycodone HCl (Oxycodone Hcl Immed Release 5 Mg Tablet) 10 mg PO Q6H PRN PRN Reason: sev pain Last Admin: 06/01/22 15:28 Dose: 10 mg Documented By: CATARINO Labs CBC & Chem 7: 05/31/22 06:04 06/01/22 06:16 Labs: Laboratory Results - last 24 hr 05/31/22 06/01/22 06/01/22 20:57 06:16 10:00 Estim Creat Clear Calc 90.1 Estimated GFR > 60 Random Vancomycin 12.6 L COVID-19 ([facility]IANNA) Negative COVID-19 Clin Com See Note Assessment and Plan (1) COPD (chronic obstructive pulmonary disease): Status: Acute (2) Pneumonia: Status: Acute Plan d#10 56yo M with COPD, chronic hypoxia on 4L O2, HCV, IDU + pulmonary nodules presenting with dyspnea + hypoxia, initially admitted to ICU on BiPAP, stepped-down to [facility] 05/25/22 # acute hypoxic resp failure due to COPD + PNA - on CPAP now, goal SaO2 88-92% [baseline O2 requirement 4L]. CTA negative for PE. consult Pulmonology given recurrent episodes of hypoxia. # PNA - got 9d of vanco + pip-gal, change to doxy + amox-clav # COPD exacerbation - continue methylprednisolone; continue nebs. # thrombocytopenia - likely due to PNA, improving # OUD - methadone # VTE ppx: SCDs, no heparin given low plts # dispo: eventual STR In my clinical judgment, the patient requires continued inpatient hospitalization for the following reasons: hypoxia Quality Stroke Does the patient have a stroke diagnosis?: No VTE Prior VTE?: No VTE Risk Level:: Medical - moderate - high VTE Device Contraindication: Treatment Not Indicated VTE Drug Contraindication: N/A - Med Ordered
--- NOTE | 2022-06-01 17:32 | P.CONPL_ITS ---
History of Present Illness History of Present Illness Consult date: 06/01/22 Reason for consult: COPD and hypoxemia Chief complaint: Acute Respiratory failure Narrative: I HAVE SEEN THIS GENTLEMAN FOR PULMONARY CONSULTATION BECAUSE HE CONTINUES TO HAVE, SIGNIFICANT RESPIRATORY FAILURE. DESATURATING MOSTLY AT NIGHT TIMES. HE WAS ADMITTED ON 05/23 WITH THE ACUTE EXACERBATION OF COPD, QUESTION OF BIBASILAR PNEUMONIA AND RESPIRATORY FAILURE. INITIALLY REQUIRED BIPAP SO HE WAS IN THE INTENSIVE CARE UNIT FOR THE 1ST 24 HOURS, AFTER IMPROVEMENT HAS BEEN MANAGED IN THE INTERMEDIATE CARE. HE IS SUPPOSED TO BE ON O2 BY NASAL CANNULA AT 4 L/MINUTE, O2 SAT REMAINING IN LOW 90S DURING THE DAYTIME, HE IS SUPPOSED TO BE USING CPAP WITH PRESSURE OF 8 CM AT NIGHT, BUT HE DOES NOT KEEP IT ON, AND IS FOUND TO HAVE EPISODES OF HYPOXEMIA. THE PATIENT REMAINS SOMEWHAT UNCOOPERATIVE ESPECIALLY AT NIGHTTIME. This gentleman has history of smoking, opiates use disorder, , he is on methadone 40 mg daily. Before admission he was on Anoro Ellipta 1 inhalation daily and albuterol 2 puffs Q 4-6 hours p.r.n.. Patient has been hospitalized a few times because of acute exacerbation of COPD. Patient is non-conversant at this time/confused, saying that he wants to go home. So I have obtained most of the information by reviewing the hospital records. Circumstantial a it is evident that this gentleman with history of smoking, has severe chronic obstructive pulmonary disease, and has had respiratory failure requiring oxygen. Review of Systems Review of Systems: Yes Unobtainable due to mental condition PMFSH Past Medical History Medical History COPD (chronic obstructive pulmonary disease) Erosive esophagitis HCV (hepatitis C virus) Latent tuberculosis Severe chronic obstructive pulmonary disease Family History Family History Mother HTN (hypertension) Brother COPD (chronic obstructive pulmonary disease) Social History Social History Household Members: Family Housing: House Do you presently have visiting nurse or other home services: No Alcohol intake: unknown Patient Tobacco Use Status: Former Tobacco user Tobacco use type: Cigarette Cigarettes Per Day: 10 Years Smoked: 30 Smoked in Last 30 Days: No Use of substances other than those prescribed or required for medical reasons: No Substance Use Type: Heroin Currently Displaying Signs/Symptoms of Drug Intoxication Withdrawal: No Advance Directives: Yes Advance Directives on File: Yes Advance Directives Date on File: 11/16/21 Do you have thoughts of harming others: None Do you have a plan to hurt others: No Plan service: No Current occupational status: unemployed Meds Allergies Allergy/AdvReac Type Severity Reaction Status Date / Time No Known Allergies Allergy Verified 02/13/22 17:09 Active Medications: Current Medications Albuterol/Ipratropium (Albuterol/Iprat 2.5/0.5mg 3 Ml Ampul.Neb) 3 ml INHALE RQ4H [facility] Last Admin: 06/01/22 15:11 Dose: 3 ml Amoxicillin/Clavulanate Potassium (Amoxicillin/Potassium Clav 875 Mg Tablet) 875 mg PO Q12H [facility] Last Admin: 06/01/22 09:53 Dose: 875 mg Doxycycline Monohydrate (Doxycycline Monohydrate 100 Mg Capsule) 100 mg PO Q12H [facility] Last Admin: 06/01/22 09:15 Dose: 100 mg Methadone HCl (Methadone Hcl 10 Mg Tablet) 10 mg PO Q4H PRN PRN Reason: anxiety/restlessness Last Admin: 06/01/22 09:16 Dose: 10 mg Methylprednisolone Sodium Succinate (Methylprednisolone Sod Succ 40 Mg/Ml Vial) 40 mg IVPUSH Q12H [facility] Last Admin: 06/01/22 15:28 Dose: 40 mg Morphine Sulfate (Morphine Sulfate 2 Mg/Ml Cartridge) 4 mg IVPUSH Q6H PRN; Protocol PRN Reason: Pain, Severe (Pain Scale 7-10) Last Admin: 06/01/22 12:31 Dose: 4 mg Omeprazole (Omeprazole 20 Mg Capsule.Dr) 20 mg PO DAILY@0630 [facility] Last Admin: 06/01/22 05:54 Dose: 20 mg Oxycodone HCl (Oxycodone Hcl Immed Release 5 Mg Tablet) 10 mg PO Q6H PRN PRN Reason: sev pain Last Admin: 06/01/22 15:28 Dose: 10 mg Home Medications Medication Instructions Recorded Confirmed Last Taken Type pantoprazole 40 mg tablet,delayed 40 mg PO DAILY 03/29/20 05/24/22 12/21/21 History release umeclidinium 62.5 mcg-vilanterol 1 puff inhalation DAILY 02/12/21 05/24/22 12/21/21 History 25 mcg/actuation powdr for inhalation (Anoro Ellipta) albuterol sulfate 2.5 mg/3 mL 1 amp inhalation Q4H PRN wheezing 10/22/21 05/24/22 Unknown History (0.083 %) solution for nebulization albuterol sulfate 90 mcg/actuation 2 puff inhalation Q6H PRN 10/22/21 05/24/22 Unknown History aerosol inhaler (ProAir HFA) Respiratory Distress methadone 10 mg/mL oral concentrate 40 mg PO DAILY 10/29/21 12/22/21 12/21/21 History paroxetine HCl 10 mg tablet 1 tab PO DAILY 05/24/22 05/24/22 Unknown History Physical Exam Vital Signs: Vital Signs: Last Vital Signs Temp 98.7 F 06/01/22 15:25 Pulse 89 06/01/22 15:25 Resp 18 06/01/22 15:25 BP 133/84 06/01/22 15:25 Pulse Ox 92 06/01/22 15:25 O2 Del Method 06/01/22 15:25 O2 Flow Rate 4 06/01/22 15:25 FiO2 45 05/26/22 12:00 Oxygen Flow Rate 70 05/23/22 21:38 BMI result Body Mass Index 18.8 Const: Other: He is confused and not able to converse the intelligently at this time. General: comfortable, no acute distress and awake HEENT: Head: Yes normal to inspection General nose exam: No nasal polyps present and No nasal discharge present Face and sinus: Yes sinuses nontender Mouth: oropharynx normal Throat: Yes posterior oropharynx normal Eyes: General: appearance normal, both eyes and all related structures Neck: Neck: Yes normal visual inspection, Yes no lymphadenopathy, Yes trachea midline and Yes no JVD Thyroid: Thyroid normal Chest: Chest palpation & inspection: normal inspection of the chest, normal palpation of entire chest wall and no tenderness Resp: Other: Percussion note is very hyper-resonant, Breath sounds are distant. He has a few inspiratory crackles over the basilar areas, no wheezes are heard. Cardio: Palpation: normal PMI Rate: regular rate Rhythm: regular rhythm Heart sounds: no gallops and no murmurs GI: Palpation (GI): Soft to palpation, nontender, No hepatosplenomegaly present and no masses Auscultation: normal bowel sounds Back/Spine/Pelvis: Other: Not examined Skin: General skin exam: no rashes or lesions noted Neuro: Other: Could not be examined Extrem: General: Yes normal to inspection, Yes no clubbing, cyanosis or edema and Yes no calf tenderness Psych: Speech and movement: Normal speech and movement present Results Laboratory Findings CBC and BMP: 05/31/22 06:04 06/01/22 06:16 Abnormal lab findings: Abnormal Labs 05/23/22 05/23/22 05/23/22 16:51 17:30 17:30 WBC RBC Hgb Hct MCV MCH MCHC RDW Plt Count MPV Immature Gran % (Auto) Neut % (Auto) Lymph % (Auto) Lymph # (Auto) Abs Immat Gran (auto) Absolute Neuts (auto) Absolute Nucleated RBC Band Neutrophils % Lymphocytes % (Manual) Monocytes % (Manual) Abs Neuts (Manual) Lymphocytes # (Manual) Monocytes # (Manual) ABG pCO2 at Pt Temp 90 H* ABG pO2 at Pt Temp 59 L ABG HCO3 52 H VBG pH VBG HCO3 Potassium Chloride 86 L Carbon Dioxide 42 H* Anion Gap BUN 37 H Random Glucose Lactic Acid 2.4 H* Calcium Phosphorus Total Bilirubin 3.1 H Direct Bilirubin 1.5 H B-Natriuretic Peptide Total Protein 6.3 L Albumin 3.0 L Urine Protein Urine Nitrite Ur Leukocyte Esterase Random Vancomycin Urine Opiates Screen Urine Fentanyl Screen 05/23/22 05/23/22 05/23/22 17:31 17:31 17:39 WBC 20.4 H RBC Hgb 13.7 L Hct MCV MCH MCHC RDW 17.2 H Plt Count 119 L D MPV 9.1 L Immature Gran % (Auto) Neut % (Auto) Lymph % (Auto) Lymph # (Auto) Abs Immat Gran (auto) Absolute Neuts (auto) Absolute Nucleated RBC 0.020 H Band Neutrophils % 18 H Lymphocytes % (Manual) 3 L Monocytes % (Manual) Abs Neuts (Manual) 16.5 H Lymphocytes # (Manual) 0.6 L Monocytes # (Manual) 1.8 H ABG pCO2 at Pt Temp ABG pO2 at Pt Temp ABG HCO3 VBG pH VBG HCO3 51 H Potassium Chloride Carbon Dioxide Anion Gap BUN Random Glucose Lactic Acid Calcium Phosphorus Total Bilirubin Direct Bilirubin B-Natriuretic Peptide 208 H Total Protein Albumin Urine Protein Urine Nitrite Ur Leukocyte Esterase Random Vancomycin Urine Opiates Screen Urine Fentanyl Screen 05/23/22 05/23/22 05/24/22 19:17 19:17 05:08 WBC RBC Hgb Hct MCV MCH MCHC RDW Plt Count MPV Immature Gran % (Auto) Neut % (Auto) Lymph % (Auto) Lymph # (Auto) Abs Immat Gran (auto) Absolute Neuts (auto) Absolute Nucleated RBC Band Neutrophils % Lymphocytes % (Manual) Monocytes % (Manual) Abs Neuts (Manual) Lymphocytes # (Manual) Monocytes # (Manual) ABG pCO2 at Pt Temp ABG pO2 at Pt Temp ABG HCO3 VBG pH VBG HCO3 Potassium Chloride 90 L Carbon Dioxide 44 H* Anion Gap 11 L BUN 34 H D Random Glucose 151 H D Lactic Acid Calcium Phosphorus 2.4 L Total Bilirubin 2.1 H Direct Bilirubin B-Natriuretic Peptide Total Protein 5.2 L D Albumin 2.8 L D Urine Protein 30 (1+) H Urine Nitrite Positive H Ur Leukocyte Esterase Trace H Random Vancomycin Urine Opiates Screen POSITIVE H Urine Fentanyl Screen POSITIVE H 05/24/22 05/24/22 05/25/22 05:12 08:14 05:07 WBC 4.7 L RBC 3.70 L D 3.44 L Hgb 9.8 L D 9.1 L Hct 31.8 L D 29.2 L MCV MCH 26.5 L 26.5 L MCHC 30.8 L RDW 16.7 H 16.1 H Plt Count 37 L D 27 L D MPV 8.8 L Immature Gran % (Auto) 0.8 H Neut % (Auto) 87.1 H Lymph % (Auto) 4.7 L Lymph # (Auto) 0.2 L Abs Immat Gran (auto) 0.04 H Absolute Neuts (auto) Absolute Nucleated RBC Band Neutrophils % 32 H Lymphocytes % (Manual) 3 L Monocytes % (Manual) 1 L Abs Neuts (Manual) Lymphocytes # (Manual) 0.2 L Monocytes # (Manual) ABG pCO2 at Pt Temp ABG pO2 at Pt Temp ABG HCO3 VBG pH 7.49 H VBG HCO3 51 H Potassium Chloride Carbon Dioxide Anion Gap BUN Random Glucose Lactic Acid Calcium Phosphorus Total Bilirubin Direct Bilirubin B-Natriuretic Peptide Total Protein Albumin Urine Protein Urine Nitrite Ur Leukocyte Esterase Random Vancomycin Urine Opiates Screen Urine Fentanyl Screen 05/25/22 05/25/22 05/26/22 05:07 05:08 06:28 WBC RBC Hgb Hct MCV MCH MCHC RDW Plt Count MPV Immature Gran % (Auto) Neut % (Auto) Lymph % (Auto) Lymph # (Auto) Abs Immat Gran (auto) Absolute Neuts (auto) Absolute Nucleated RBC Band Neutrophils % Lymphocytes % (Manual) Monocytes % (Manual) Abs Neuts (Manual) Lymphocytes # (Manual) Monocytes # (Manual) ABG pCO2 at Pt Temp ABG pO2 at Pt Temp ABG HCO3 VBG pH VBG HCO3 36 H Potassium 3.2 L D Chloride Carbon Dioxide 33 H 30 H Anion Gap 10 L 9 L BUN 23 H 20 H Random Glucose 150 H Lactic Acid Calcium Phosphorus 2.5 L Total Bilirubin Direct Bilirubin B-Natriuretic Peptide Total Protein Albumin 3.3 L Urine Protein Urine Nitrite Ur Leukocyte Esterase Random Vancomycin Urine Opiates Screen Urine Fentanyl Screen 05/26/22 05/26/22 05/28/22 06:28 06:34 09:31 WBC RBC 3.90 L 4.02 L Hgb 10.4 L 10.9 L Hct 33.0 L 32.2 L MCV MCH 26.7 L MCHC RDW 16.1 H 16.1 H Plt Count 27 L 58 L D MPV 9.2 L 8.8 L Immature Gran % (Auto) 0.6 H 1.4 H Neut % (Auto) 82.6 H 86.0 H Lymph % (Auto) 8.9 L 5.7 L Lymph # (Auto) 0.5 L 0.6 L Abs Immat Gran (auto) 0.15 H Absolute Neuts (auto) 9.3 H Absolute Nucleated RBC Band Neutrophils % Lymphocytes % (Manual) Monocytes % (Manual) Abs Neuts (Manual) Lymphocytes # (Manual) Monocytes # (Manual) ABG pCO2 at Pt Temp ABG pO2 at Pt Temp ABG HCO3 VBG pH VBG HCO3 30 H Potassium Chloride Carbon Dioxide Anion Gap BUN Random Glucose Lactic Acid Calcium Phosphorus Total Bilirubin Direct Bilirubin B-Natriuretic Peptide Total Protein Albumin Urine Protein Urine Nitrite Ur Leukocyte Esterase Random Vancomycin Urine Opiates Screen Urine Fentanyl Screen 05/29/22 05/29/22 05/29/22 09:38 09:41 09:41 WBC RBC 4.26 L Hgb 11.4 L Hct 34.8 L MCV MCH 26.8 L MCHC RDW 16.5 H Plt Count 78 L D MPV 8.4 L Immature Gran % (Auto) Neut % (Auto) Lymph % (Auto) Lymph # (Auto) Abs Immat Gran (auto) Absolute Neuts (auto) Absolute Nucleated RBC Band Neutrophils % Lymphocytes % (Manual) Monocytes % (Manual) Abs Neuts (Manual) Lymphocytes # (Manual) Monocytes # (Manual) ABG pCO2 at Pt Temp ABG pO2 at Pt Temp 62 L ABG HCO3 21 L VBG pH VBG HCO3 Potassium Chloride Carbon Dioxide Anion Gap 11 L BUN 18 H Random Glucose Lactic Acid Calcium 8.2 L D Phosphorus Total Bilirubin Direct Bilirubin B-Natriuretic Peptide Total Protein Albumin Urine Protein Urine Nitrite Ur Leukocyte Esterase Random Vancomycin Urine Opiates Screen Urine Fentanyl Screen 05/30/22 05/30/22 05/31/22 06:12 06:12 06:04 WBC RBC 3.75 L 3.66 L Hgb 10.0 L 9.9 L Hct 29.9 L 29.9 L MCV 79.7 L MCH 26.7 L MCHC RDW 16.2 H 16.5 H Plt Count 77 L 95 L MPV 9.2 L Immature Gran % (Auto) Neut % (Auto) Lymph % (Auto) Lymph # (Auto) Abs Immat Gran (auto) Absolute Neuts (auto) Absolute Nucleated RBC Band Neutrophils % Lymphocytes % (Manual) Monocytes % (Manual) Abs Neuts (Manual) Lymphocytes # (Manual) Monocytes # (Manual) ABG pCO2 at Pt Temp ABG pO2 at Pt Temp ABG HCO3 VBG pH VBG HCO3 Potassium Chloride Carbon Dioxide Anion Gap 9 L BUN 19 H Random Glucose 137 H Lactic Acid Calcium 8.3 L Phosphorus Total Bilirubin Direct Bilirubin B-Natriuretic Peptide Total Protein Albumin Urine Protein Urine Nitrite Ur Leukocyte Esterase Random Vancomycin Urine Opiates Screen Urine Fentanyl Screen 05/31/22 05/31/22 05/31/22 06:04 06:08 20:57 WBC RBC Hgb Hct MCV MCH MCHC RDW Plt Count MPV Immature Gran % (Auto) Neut % (Auto) Lymph % (Auto) Lymph # (Auto) Abs Immat Gran (auto) Absolute Neuts (auto) Absolute Nucleated RBC Band Neutrophils % Lymphocytes % (Manual) Monocytes % (Manual) Abs Neuts (Manual) Lymphocytes # (Manual) Monocytes # (Manual) ABG pCO2 at Pt Temp ABG pO2 at Pt Temp ABG HCO3 VBG pH 7.44 H VBG HCO3 Potassium Chloride Carbon Dioxide Anion Gap 8 L BUN 20 H Random Glucose 152 H Lactic Acid Calcium 8.3 L Phosphorus Total Bilirubin Direct Bilirubin B-Natriuretic Peptide Total Protein Albumin Urine Protein Urine Nitrite Ur Leukocyte Esterase Random Vancomycin 12.6 L Urine Opiates Screen Urine Fentanyl Screen Microbiology: Microbiology 05/23/22 17:25 Blood - Venous Blood Culture - Final No growth after 5 days. 05/23/22 19:40 Urine clean catch - Urine sarmiento top Urine Culture - Final No growth. 05/23/22 17:30 Blood - Venous Blood Culture - Final Coag negative Staphylococcus Diagnostic Findings Chest x-ray: report reviewed and image reviewed CT scan - chest: report reviewed and image reviewed Assessment and Plan (1) COPD (chronic obstructive pulmonary disease): Status: Acute (2) Acute exacerbation of chronic obstructive airways disease: Status: Acute (3) Pneumonia: Status: Acute (4) Respiratory failure with hypoxia and hypercapnia: Status: Acute Plan This gentleman is a case of advanced chronic obstructive pulmonary disease. He is recovering from acute exacerbation of his COPD/ and bibasilar pneumonia. He is partially confused at this time, which makes his management somewhat difficult. This gentleman needs is oxygen supplementation with nasal cannula 3-4 L/minute, to keep his O2 sat between 90-92%. Continue to use CPAP with pressure of 8 cm at nighttime, however for long-term management he will be better of with use of BiPAP. *Because of his acute on chronic neck respiratory failure with hypoxemia and hypercapnia ,he is a candidate for support with BiPAP at night. Pressure setting could be 12/5 cm along with oxygen. However this is somewhat difficult at this time due to his poor mental status and noncooperation. He would need a close supervision at night by the nursing staff, to make sure that he keeps on the the mask. Continue DuoNeb updrafts Q 6 hours while awake. .Completed the course of antibiotic Slowly wean him off the steroids. Thank you very much for asthma to see this patient. Procedures Date of Service Date of Service: 06/01/22
[2022-06-02] VITALS (15 sets, daily range): BP systolic 114–143; BP diastolic 67–90; PULSE 85–110; RESP 12–20; TEMP 36.6–37.1; O2SAT 93–98; BMI 18.6
[2022-06-02] MEDS: Morphine Sulfate 2 MG/ML CARTRIDGE 4 MG IVPUSH ×4 (02:27→23:05)
[2022-06-02] MEDS: methylPREDNISolone Sod Succ 40 MG/ML VIAL IVPUSH ×2 (02:29→09:42)
[2022-06-02] MEDS: Albuterol/Iprat 2.5/0.5MG 3 ML AMPUL.NEB INHALE ×5 (03:00→19:14)
[2022-06-02] MEDS: oxyCODONE HCl Immed Release 5 MG TABLET 10 MG PO ×3 (04:02→19:34)
[2022-06-02] MEDS: Omeprazole 20 MG CAPSULE.DR PO (05:15)
--- NOTE | 2022-06-02 08:06 | PC.RT ---
pt wearing cpap for 20 minutes past 2 days. will remove today from room. pt in no resp distress and 02 being weaned now on 4 liters and sats 95%
[2022-06-02] MEDS: methADONE HCl 10 MG TABLET PO (09:40)
[2022-06-02] MEDS: Doxycycline Monohydrate 100 MG CAPSULE PO ×2 (09:40→19:33)
[2022-06-02] MEDS: Amoxicillin/Potassium Clav 875 MG TABLET PO ×2 (09:40→19:33)
--- NOTE | 2022-06-02 11:27 | MHC.CLN ---
F/U PO INTAKE 25% WT REMAINS STABLE DIET RX: REGULAR-APPROPRIATE PT RECEIVING ENSURE BID TO INCREASE KCALS PROVIDES 700KCALS, 40G PROTEIN CONTINUE TO MONITOR PO INTAKE CLOSELY
--- NOTE | 2022-06-02 13:09 | MHC.CM.PN ---
The two SNFs ([facility] and [facility]) that are following Patient, do not have beds to offer today but will follow for bed availability next week. has been made aware.
--- NOTE | 2022-06-02 15:07 | P.PNIM_ITS ---
Subjective Subjective Date of Service: 06/02/22 Interval History: weaned to 4L O2 short of breath with exertion Physical Exam Vital Signs: Vital Signs: Last Vital Signs Temp 98.4 F 06/02/22 12:00 Pulse 85 06/02/22 12:00 Resp 18 06/02/22 14:56 BP 114/67 06/02/22 12:00 Pulse Ox 94 06/02/22 12:00 O2 Del Method 06/02/22 12:00 O2 Flow Rate 4 06/02/22 12:00 FiO2 45 05/26/22 12:00 Oxygen Flow Rate 70 05/23/22 21:38 BMI result Body Mass Index 18.6 Gen: short of breath with movement/exertion HEENT: sclera anicteric, moist mucus membranes Neck: supple Lungs: soft expiratory wheezing Heart: regular rate and rhythm, no murmurs Abd: soft, non-tender, non-distended Ext: no edema Skin: warm/well-perfused Neuro: alert and oriented x3, no focal findings Psych: appropriate affect Objective Data Active Medications Albuterol Sulfate (Albuterol Sulfate (0.083%) 2.5 Mg/3 Ml Vial.Neb) 2.5 mg INHALE Q2H PRN PRN Reason: Shortness of Breath/Wheezing Albuterol/Ipratropium (Albuterol/Iprat 2.5/0.5mg 3 Ml Ampul.Neb) 3 ml INHALE RQ4H WHILE AWAKE [facility] Last Admin: 06/02/22 11:37 Dose: 3 ml Documented By: ROSALIA Amoxicillin/Clavulanate Potassium (Amoxicillin/Potassium Clav 875 Mg Tablet) 875 mg PO Q12H [facility] Last Admin: 06/02/22 09:40 Dose: 875 mg Documented By: AIDEN Doxycycline Monohydrate (Doxycycline Monohydrate 100 Mg Capsule) 100 mg PO Q12H [facility] Last Admin: 06/02/22 09:40 Dose: 100 mg Documented By: AIDEN Methylprednisolone Sodium Succinate (Methylprednisolone Sod Succ 40 Mg/Ml Vial) 40 mg IVPUSH Q24H [facility] Last Admin: 06/02/22 09:42 Dose: 40 mg Documented By: AIDEN Morphine Sulfate (Morphine Sulfate 2 Mg/Ml Cartridge) 4 mg IVPUSH Q6H PRN; Protocol PRN Reason: Pain, Severe (Pain Scale 7-10) Last Admin: 06/02/22 09:41 Dose: 4 mg Documented By: AIDEN Omeprazole (Omeprazole 20 Mg Capsule.Dr) 20 mg PO DAILY@0630 [facility] Last Admin: 06/02/22 05:15 Dose: 20 mg Documented By: SIERRA Oxycodone HCl (Oxycodone Hcl Immed Release 5 Mg Tablet) 10 mg PO Q6H PRN PRN Reason: sev pain Last Admin: 06/02/22 13:05 Dose: 10 mg Documented By: AIDEN Labs CBC & Chem 7: 05/31/22 06:04 06/01/22 06:16 Assessment and Plan (1) COPD (chronic obstructive pulmonary disease): Status: Acute (2) Pneumonia: Status: Acute Plan d#11 56yo M with COPD, chronic hypoxia on 4L O2, HCV, IDU + pulmonary nodules presenting with dyspnea + hypoxia, initially admitted to ICU on BiPAP, stepped-down to C 05/25/22 # acute hypoxic resp failure due to COPD + PNA - on CPAP now, goal SaO2 88-92% [baseline O2 requirement 4L]. CTA negative for PE. Pulmonary consulted, recommend BiPAP 05/29 at night # PNA - got 9d of vanco + pip-gal, changed to doxy + amox-clav d#2 # COPD exacerbation - wean methylprednisolone; continue nebs. # thrombocytopenia - likely due to PNA, improved # OUD - methadone # VTE ppx: SCDs, no heparin given low plts # dispo: eventual STR In my clinical judgment, the patient requires continued inpatient hospitalization for the following reasons: hypoxia, STR placement Quality Stroke Does the patient have a stroke diagnosis?: No VTE Prior VTE?: No VTE Risk Level:: Medical - moderate - high VTE Device Contraindication: Treatment Not Indicated VTE Drug Contraindication: N/A - Med Ordered
[2022-06-03] VITALS (17 sets, daily range): BP systolic 120–139; BP diastolic 70–87; PULSE 88–113; RESP 4–31; TEMP 36.4–37; O2SAT 88–97; BMI 16.1
[2022-06-03] MEDS: oxyCODONE HCl Immed Release 5 MG TABLET 10 MG PO (02:15)
[2022-06-03] MEDS: Omeprazole 20 MG CAPSULE.DR PO (05:10)
[2022-06-03] MEDS: Morphine Sulfate 2 MG/ML CARTRIDGE 4 MG IVPUSH ×3 (05:11→18:37)
[2022-06-03] MEDS: Albuterol/Iprat 2.5/0.5MG 3 ML AMPUL.NEB INHALE ×4 (08:00→19:48)
[2022-06-03] MEDS: Amoxicillin/Potassium Clav 875 MG TABLET PO ×2 (08:50→20:52)
[2022-06-03] MEDS: Doxycycline Monohydrate 100 MG CAPSULE PO ×2 (08:50→20:52)
[2022-06-03] MEDS: methylPREDNISolone Sod Succ 40 MG/ML VIAL IVPUSH (08:50)
[2022-06-03] MEDS: methADONE HCl 10 MG TABLET PO ×3 (10:49→21:24)
--- NOTE | 2022-06-03 12:57 | P.PNIM_ITS ---
Subjective Subjective Date of Service: 06/03/22 Interval History: refusing BiPAP hypoxic to mid 70s this morning and very short of breath placed on HFNC Review of Systems Review of Systems: Yes all other systems are reviewed and are negative Physical Exam Vital Signs: Vital Signs: Last Vital Signs Temp 98.0 F 06/03/22 11:40 Pulse 112 H 06/03/22 11:40 Resp 20 06/03/22 11:40 BP 129/87 06/03/22 11:40 Pulse Ox 88 L 06/03/22 11:40 O2 Del Method 06/03/22 11:40 O2 Flow Rate 40 06/03/22 11:40 FiO2 60 06/03/22 11:40 Oxygen Flow Rate 70 05/23/22 21:38 BMI result Body Mass Index 16.1 Gen: mod resp distress, placed on CPAP, pulled it off, then placed on HFNC HEENT: sclera anicteric, moist mucus membranes Neck: supple Lungs: soft expiratory wheezing Heart: regular rate and rhythm, no murmurs Abd: soft, non-tender, non-distended Ext: no edema Skin: warm/well-perfused Neuro: alert and oriented x3, no focal findings Psych: appropriate affect Objective Data Active Medications Albuterol Sulfate (Albuterol Sulfate (0.083%) 2.5 Mg/3 Ml Vial.Neb) 2.5 mg INHALE Q2H PRN PRN Reason: Shortness of Breath/Wheezing Albuterol/Ipratropium (Albuterol/Iprat 2.5/0.5mg 3 Ml Ampul.Neb) 3 ml INHALE RQ4H WHILE AWAKE [facility] Last Admin: 06/03/22 11:32 Dose: 3 ml Documented By: SRAVAN Amoxicillin/Clavulanate Potassium (Amoxicillin/Potassium Clav 875 Mg Tablet) 875 mg PO Q12H [facility] Stop: 06/04/22 00:01 Last Admin: 06/03/22 08:50 Dose: 875 mg Documented By: SD Doxycycline Monohydrate (Doxycycline Monohydrate 100 Mg Capsule) 100 mg PO Q12H [facility] Stop: 06/04/22 00:01 Last Admin: 06/03/22 08:50 Dose: 100 mg Documented By: SD Methadone HCl (Methadone Hcl 10 Mg Tablet) 10 mg PO Q4H PRN PRN Reason: mod-sev pain Last Admin: 06/03/22 10:49 Dose: 10 mg Documented By: SD Methylprednisolone Sodium Succinate (Methylprednisolone Sod Succ 40 Mg/Ml Vial) 40 mg IVPUSH Q24H [facility] Last Admin: 06/03/22 08:50 Dose: 40 mg Documented By: SD Morphine Sulfate (Morphine Sulfate 2 Mg/Ml Cartridge) 4 mg IVPUSH Q6H PRN; Protocol PRN Reason: Pain, Severe (Pain Scale 7-10) Last Admin: 06/03/22 12:43 Dose: 4 mg Documented By: SD Omeprazole (Omeprazole 20 Mg Capsule.Dr) 20 mg PO DAILY@0630 [facility] Last Admin: 06/03/22 05:10 Dose: 20 mg Documented By: SIERRA Labs CBC & Chem 7: 05/31/22 06:04 06/01/22 06:16 Assessment and Plan (1) COPD (chronic obstructive pulmonary disease): Status: Acute (2) Pneumonia: Status: Acute Plan d#12 56yo M with COPD, chronic hypoxia on 4L O2, HCV, IDU + pulmonary nodules presenting with dyspnea + hypoxia, initially admitted to ICU on BiPAP, stepped- down to C 05/25/22 # acute hypoxic resp failure due to COPD + PNA - goal SaO2 88-92% [baseline O2 requirement 4L]. CTA negative for PE. Pulmonary consulted, recommend BiPAP 12/5 at night but pt constantly refused. for now, place on HFNC. # PNA - got 9d of vanco + pip-gal, changed to doxy + amox-clav d#3 # COPD exacerbation - wean methylprednisolone; continue nebs. # thrombocytopenia - likely due to PNA, improved # OUD - methadone # VTE ppx: SCDs, no heparin given low plts # dispo: eventual STR In my clinical judgment, the patient requires continued inpatient hospitalization for the following reasons: hypoxia, STR placement Time Spent With Patient Time: Total time managing care of this patient today ____ minutes. Quality Stroke Does the patient have a stroke diagnosis?: No VTE Prior VTE?: No VTE Risk Level:: Medical - moderate - high VTE Device Contraindication: Treatment Not Indicated VTE Drug Contraindication: N/A - Med Ordered
[2022-06-04] VITALS (17 sets, daily range): BP systolic 107–135; BP diastolic 65–88; PULSE 86–121; RESP 17–28; TEMP 36.2–37.1; O2SAT 83–99; BMI 16.6
[2022-06-04] MEDS: Morphine Sulfate 2 MG/ML CARTRIDGE 4 MG IVPUSH ×4 (00:17→19:24)
[2022-06-04] MEDS: methADONE HCl 10 MG TABLET PO ×3 (01:48→23:45)
[2022-06-04] MEDS: Omeprazole 20 MG CAPSULE.DR PO (05:58)
[2022-06-04] MEDS: Albuterol/Iprat 2.5/0.5MG 3 ML AMPUL.NEB INHALE ×4 (07:56→19:51)
[2022-06-04] MEDS: methylPREDNISolone Sod Succ 40 MG/ML VIAL IVPUSH (09:54)
--- NOTE | 2022-06-04 13:07 | HO.PM.IMPN ---
Subjective Subjective Date of Service: 06/05/22 Interval History: Sitting on bed offers no acute complaints, desaturated to low 80s this morning therefore placed on 80% high-flow, denies fever chills, no chest pain, denies worsening shortness of breath, no lightheadedness, no dizziness, has been refusing CPAP at night. Review of Systems Review of Systems: Yes all other systems are reviewed and are negative Physical Exam Vital Signs: Vital Signs: Last Vital Signs Temp 98.5 F 06/04/22 11:58 Pulse 103 H 06/04/22 11:58 Resp 20 06/04/22 11:58 BP 129/88 06/04/22 11:58 Pulse Ox 98 06/04/22 11:58 O2 Del Method 06/04/22 11:58 O2 Flow Rate 40 06/04/22 11:58 FiO2 65 06/04/22 11:58 Oxygen Flow Rate 70 05/23/22 21:38 BMI result Body Mass Index 16.6 Const: Other: Gen: Awake alert talking in full sentences on high-flow oxygen HEENT: sclera anicteric, moist mucus membranes Neck: supple, no JVD Lungs: Coarse breath sound bilaterally ,no use of accessory muscles Heart: regular rate and rhythm, no murmurs Abd: soft, non-tender, non-distended Ext: no edema Skin: warm/well-perfused Neuro: alert and oriented x3, no focal findings Psych: appropriate affect Objective Data Active Medications Albuterol Sulfate (Albuterol Sulfate (0.083%) 2.5 Mg/3 Ml Vial.Neb) 2.5 mg INHALE Q2H PRN PRN Reason: Shortness of Breath/Wheezing Albuterol/Ipratropium (Albuterol/Iprat 2.5/0.5mg 3 Ml Ampul.Neb) 3 ml INHALE RQ4H WHILE AWAKE [facility] Last Admin: 06/04/22 11:48 Dose: 3 ml Documented By: SRAVAN Methadone HCl (Methadone Hcl 10 Mg Tablet) 10 mg PO Q4H PRN PRN Reason: mod-sev pain Last Admin: 06/04/22 09:55 Dose: 10 mg Documented By: GILBERTO Methylprednisolone Sodium Succinate (Methylprednisolone Sod Succ 40 Mg/Ml Vial) 40 mg IVPUSH Q24H [facility] Last Admin: 06/04/22 09:54 Dose: 40 mg Documented By: DOBROB Morphine Sulfate (Morphine Sulfate 2 Mg/Ml Cartridge) 4 mg IVPUSH Q6H PRN; Protocol PRN Reason: Pain, Severe (Pain Scale 7-10) Last Admin: 06/04/22 12:28 Dose: 4 mg Documented By: DOBROB Omeprazole (Omeprazole 20 Mg Capsule.Dr) 20 mg PO DAILY@0630 [facility] Last Admin: 06/04/22 05:58 Dose: 20 mg Documented By: ANDERM Labs CBC & Chem 7: 05/31/22 06:04 06/01/22 06:16 Assessment and Plan (1) COPD (chronic obstructive pulmonary disease): Status: Acute (2) Pneumonia: Status: Acute Plan d#12 56yo M with COPD, chronic hypoxia on 4L O2, HCV, IDU + pulmonary nodules presenting with dyspnea + hypoxia, initially admitted to ICU on BiPAP, stepped-down to [facility] 05/25/22 # acute hypoxic resp failure due to COPD + PNA Feeling better, denies chest pain, no shortness of breath - goal SaO2 88-92% [baseline O2 requirement 4L]. CTA negative for PE. Refusing BiPAP 05/29, continue high-flow nasal cannula and gradually wean as tolerated # PNA - got 9d of vanco + pip-gal, and 3 days of doxy + amox-clav , no recurrent fevers, normal WBC # COPD exacerbation - on iv methylprednisolone 40mg daily and DuoNeb q.4 hours while awake # thrombocytopenia - likely due to PNA, improved # OUD - methadone, on IV morphine for generalized pain # VTE ppx: SCDs, no heparin given low plts # dispo: eventual STR In my clinical judgment, the patient requires continued inpatient hospitalization for the following reasons: hypoxia, STR placement Time Spent With Patient Time: Total time managing care of this patient today ____ minutes. Quality Stroke Does the patient have a stroke diagnosis?: No VTE Prior VTE?: No VTE Risk Level:: Medical - moderate - high VTE Device Contraindication: Treatment Not Indicated VTE Drug Contraindication: N/A - Med Ordered
[2022-06-05] VITALS (16 sets, daily range): BP systolic 120–142; BP diastolic 69–80; PULSE 84–118; RESP 12–26; TEMP 36.4–37; O2SAT 90–98; BMI 17.1
[2022-06-05] MEDS: Morphine Sulfate 2 MG/ML CARTRIDGE 4 MG IVPUSH ×2 (01:28→09:01)
[2022-06-05] MEDS: methADONE HCl 10 MG TABLET PO ×3 (05:06→18:28)
[2022-06-05] MEDS: Omeprazole 20 MG CAPSULE.DR PO (05:07)
--- NOTE | 2022-06-05 07:15 | PC.RT ---
Mr. Triplett has been continually to refuse to wear his Bipap at night. Pt is now on hiflow due to hypoxia. The Bipap will be pulled from patients room today. Dr. Pederson recommendation STR when discharged.
[2022-06-05] MEDS: Albuterol/Iprat 2.5/0.5MG 3 ML AMPUL.NEB INHALE ×4 (08:12→19:54)
[2022-06-05] MEDS: PARoxetine HCL 10 MG TABLET PO (09:00)
[2022-06-05] MEDS: methylPREDNISolone Sod Succ 40 MG/ML VIAL IVPUSH (09:00)
--- NOTE | 2022-06-05 10:28 | MHC.CLN ---
F/U PO INTAKE 50-100% SLIGHTLY IMPROVED DIET RX: REGULAR-APPROPRIATE PT RECEIVING ENSURE BID TO INCREASE KCALS PROVIDES 700KCALS, 40G PROTEIN CONTINUE TO MONITOR PO INTAKE CLOSELY
--- NOTE | 2022-06-05 13:17 | MHC.CM.PN ---
Per ROUNDS discussion, Patient is on high Flow O2 and not yet medically cleared for dc. PT is recommending STR and CM will continue to follow.
--- NOTE | 2022-06-05 16:08 | P.PNIM_ITS ---
Subjective Subjective Date of Service: 06/05/22 Interval History: Complaining of rt.l hip pain history of right intertrochanteric fracture status post surgery in October of 2021, denies shortness of breath, no chest pain no headache no dizziness asking for pain medication is receiving home dose of methadone. Tolerating diet no nausea no vomiting no abdominal pain, finger oximetry 94% on 45 L high-flow, denies fever chills Review of Systems Review of Systems: Yes all other systems are reviewed and are negative Physical Exam Vital Signs: Vital Signs: Last Vital Signs Temp 98.2 F 06/05/22 15:48 Pulse 111 H 06/05/22 15:48 Resp 16 06/05/22 15:48 BP 120/72 06/05/22 15:48 Pulse Ox 94 06/05/22 15:48 O2 Del Method 06/05/22 15:48 O2 Flow Rate 45 06/05/22 15:48 FiO2 55 06/05/22 11:30 Oxygen Flow Rate 70 05/23/22 21:38 BMI result Body Mass Index 17.1 Const: Other: Gen:? Awake alert talking in full sentences on high-flow oxygen HEENT: sclera anicteric, moist mucus membranes Neck: supple, no JVD Lungs:? Coarse breath sound bilaterally , no wheeze, no rhonchi, no use of accessory muscles Heart: regular rate and rhythm, no murmurs Abd: soft, non-tender, non-distended Ext: no edema Skin: warm/well-perfused Neuro: alert and oriented x3, no focal findings musculoskeletal right hip good range of motion no redness no swelling Psych: appropriate affect Objective Data Active Medications Albuterol Sulfate (Albuterol Sulfate (0.083%) 2.5 Mg/3 Ml Vial.Neb) 2.5 mg INHALE Q2H PRN PRN Reason: Shortness of Breath/Wheezing Albuterol/Ipratropium (Albuterol/Iprat 2.5/0.5mg 3 Ml Ampul.Neb) 3 ml INHALE RQ4H WHILE AWAKE [facility] Last Admin: 06/05/22 14:19 Dose: 3 ml Documented By: TRI Methadone HCl (Methadone Hcl 10 Mg Tablet) 10 mg PO Q4H PRN PRN Reason: mod-sev pain Last Admin: 06/05/22 12:20 Dose: 10 mg Documented By: CATARINO Methylprednisolone Sodium Succinate (Methylprednisolone Sod Succ 40 Mg/Ml Vial) 40 mg IVPUSH Q24H [facility] Last Admin: 06/05/22 09:00 Dose: 40 mg Documented By: CATARINO Morphine Sulfate (Morphine Sulfate 4 Mg/Ml Cartridge) 3 mg IVPUSH Q4H PRN; Protocol PRN Reason: Pain, Severe (Pain Scale 7-10) Omeprazole (Omeprazole 20 Mg Capsule.Dr) 20 mg PO DAILY@0630 [facility] Last Admin: 06/05/22 05:07 Dose: 20 mg Documented By: WILLIAM Paroxetine HCl (Paroxetine Hcl 10 Mg Tablet) 10 mg PO DAILY [facility] Last Admin: 06/05/22 09:00 Dose: 10 mg Documented By: CATARINO Labs CBC & Chem 7: 05/31/22 06:04 06/01/22 06:16 Assessment and Plan (1) COPD (chronic obstructive pulmonary disease): Status: Acute (2) Pneumonia: Status: Acute Plan d#12 56yo M with COPD, chronic hypoxia on 4L O2, HCV, IDU + pulmonary nodules presenting with dyspnea + hypoxia, initially admitted to ICU on BiPAP, stepped- down to [facility] 05/25/22 # acute hypoxic resp failure due to COPD + PNA Feeling better, denies chest pain, no shortness of breath - goal SaO2 88-92% [baseline O2 requirement 4L]. CTA negative for PE. Refusing BiPAP 05/29, continue high-flow nasal cannula and gradually wean as tolerated # PNA - got 9d of vanco + pip-gal, and 3 days of doxy + amox-clav , no recurrent fevers, normal WBC # COPD exacerbation no shortness of breath, lung clear to exam - on iv methylprednisolone 40mg daily and DuoNeb q.4 hours while awake will transition to by mouth prednisone encourage oob to chair # thrombocytopenia - likely due to PNA, improved # OUD - methadone, on IV morphine for right hip and generalized pain, will gradually wean morphine # VTE ppx: SCDs, no heparin given low plts # dispo: eventual STR In my clinical judgment, the patient requires continued inpatient hospitalization for the following reasons: hypoxia, STR placement Time Spent With Patient Time: Total time managing care of this patient today ____ minutes. Quality Stroke Does the patient have a stroke diagnosis?: No VTE Prior VTE?: No VTE Risk Level:: Medical - moderate - high VTE Device Contraindication: Treatment Not Indicated VTE Drug Contraindication: N/A - Med Ordered
[2022-06-05] MEDS: Morphine Sulfate 4 MG/ML CARTRIDGE 3 MG IVPUSH ×2 (16:38→21:39)
[2022-06-05] MEDS: guaiFENesin DM 100/10/5 ML 5 ML SYRUP 10 ML PO (19:41)
[2022-06-06] VITALS (15 sets, daily range): BP systolic 111–132; BP diastolic 67–80; PULSE 94–124; RESP 16–24; TEMP 36.5–37.7; O2SAT 83–96; BMI 17.4
[2022-06-06] MEDS: Morphine Sulfate 4 MG/ML CARTRIDGE 3 MG IVPUSH (03:45)
[2022-06-06] MEDS: Omeprazole 20 MG CAPSULE.DR PO (06:02)
[2022-06-06] MEDS: Albuterol/Iprat 2.5/0.5MG 3 ML AMPUL.NEB INHALE ×4 (07:13→20:52)
[2022-06-06] MEDS: methADONE HCl 10 MG TABLET PO ×3 (09:02→20:38)
[2022-06-06] MEDS: methylPREDNISolone Sod Succ 40 MG/ML VIAL IVPUSH (09:03)
[2022-06-06] MEDS: PARoxetine HCL 10 MG TABLET PO (09:03)
[2022-06-06] MEDS: guaiFENesin DM 100/10/5 ML 5 ML SYRUP 10 ML PO ×3 (09:04→20:39)
--- NOTE | 2022-06-06 13:15 | HO.PM.IMPN ---
Subjective Subjective Date of Service: 06/06/22 Interval History: No acute complaints remains on high-flow oxygen, right hip pain has improved patient keep requesting for IV morphine, tolerating diet, no nausea, no vomiting, no abdominal pain, mostly in bed. Review of Systems [employer] no headache no dizziness CVS no chest pain skin no rash Review of Systems: Yes all other systems are reviewed and are negative Physical Exam Vital Signs: Vital Signs: Last Vital Signs Temp 99.9 F 06/06/22 11:33 Pulse 104 H 06/06/22 11:33 Resp 22 H 06/06/22 11:33 BP 132/78 06/06/22 11:33 Pulse Ox 91 L 06/06/22 11:33 O2 Del Method 06/06/22 11:33 O2 Flow Rate 45 06/06/22 11:33 FiO2 45 06/06/22 11:33 Oxygen Flow Rate 70 05/23/22 21:38 BMI result Body Mass Index 17.4 Const: Other: Gen:? Awake alert talking in full se ntences on high-fl ow oxygen Neck: gomes pple, no JVD Lungs :? Clear, diminish ed , no wheeze, no rhonchi, no use o f accessory muscle s Heart: regular r ate and rhythm, no murmurs Abd: soft , non-tender, non- distended Ext: no edema Skin: warm/w ell-perfused Neuro : alert and orient ed x3, no focal fi ndings musculoskel etal right hip goo d range of motion no redness no swel ling Psych: approp riate affect Objective Data Active Medications Albuterol Sulfate (Albuterol Sulfate (0.083%) 2.5 Mg/3 Ml Vial.Neb) 2.5 mg INHALE Q2H PRN PRN Reason: Shortness of Breath/Wheezing Albuterol/Ipratropium (Albuterol/Iprat 2.5/0.5mg 3 Ml Ampul.Neb) 3 ml INHALE RQ4H WHILE AWAKE [facility] Last Admin: 06/06/22 11:04 Dose: 3 ml Documented By: OBED Guaifenesin/Dextromethorphan (Guaifenesin Dm 100/10/5 Ml 5 Ml Syrup) 10 ml PO TID [facility] Last Admin: 06/06/22 09:04 Dose: 10 ml Documented By: CATARINO Methadone HCl (Methadone Hcl 10 Mg Tablet) 10 mg PO Q4H PRN PRN Reason: mod-sev pain Last Admin: 06/06/22 09:02 Dose: 10 mg Documented By: CATARINO Omeprazole (Omeprazole 20 Mg Capsule.) 20 mg PO DAILY@0630 [facility] Last Admin: 06/06/22 06:02 Dose: 20 mg Documented By: GRACE Paroxetine HCl (Paroxetine Hcl 10 Mg Tablet) 10 mg PO DAILY [facility] Last Admin: 06/06/22 09:03 Dose: 10 mg Documented By: CATARINO Prednisone (Prednisone 20 Mg Tablet) 20 mg PO DAILY [facility] Labs CBC & Chem 7: 05/31/22 06:04 06/01/22 06:16 Assessment and Plan (1) COPD (chronic obstructive pulmonary disease): Status: Acute (2) Pneumonia: Status: Acute Plan d#12 56yo M with COPD, chronic hypoxia on 4L O2, HCV, IDU + pulmonary nodules presenting with dyspnea + hypoxia, initially admitted to ICU on BiPAP, stepped-down to [facility] 05/25/22 # acute hypoxic resp failure due to COPD + PNA Feeling better, denies chest pain, no shortness of breath, persistent hypoxia goal SaO2 88-92% [baseline O2 requirement 4L]. CTA negative for PE. But showed bronchiectasis with bronchial wall thickening and consolidation at both lung bases, persistent extensive tree-in-bud opacities in lungs bilaterally Due to intermittent tachycardia, tachypnea and difficulty weaning oxygen consult pulmonology continue high-flow nasal cannula and gradually wean as tolerated # PNA - got 9d of vanco + pip-gal, and 3 days of doxy + amox-clav , no recurrent fevers, normal WBC # COPD exacerbation no shortness of breath, lung clear to exam on iv methylprednisolone 40mg daily and DuoNeb q.4 hours while awake will transition to by mouth prednisone 20 mg daily, encourage oob to chair # thrombocytopenia - likely due to PNA, improved # OUD - methadone, will DC IV morphine, encourage out of bed to chair use Tylenol as needed # VTE ppx: SCDs, no heparin given low plts # dispo: eventual STR In my clinical judgment, the patient requires continued inpatient hospitalization for the following reasons: hypoxia, STR placement Time Spent With Patient Time: Total time managing care of this patient today ____ minutes. Quality Stroke Does the patient have a stroke diagnosis?: No VTE Prior VTE?: No VTE Risk Level:: Medical - moderate - high VTE Device Contraindication: Treatment Not Indicated VTE Drug Contraindication: N/A - Med Ordered
--- NOTE | 2022-06-06 13:40 | PM.PNPUL ---
Subjective Subjective Date of Service: 06/06/22 Interval history: The patient was seen on exam. Overall he feels better. He still requiring high-flow. He is cachectic and does have a hyperinflated chest. He does have long-standing COPD with chronic respiratory failure. She completed 12 days of antibiotics. He continues on 20 mg of prednisone. Is been hard for him to come off high-flow. Will start him on maintenance inhalers in addition to theophylline which would be a good option. The patient is out of bed to chair which is reassuring. Objective Data Labs CBC & Chem 7: 05/31/22 06:04 06/01/22 06:16 Microbiology Microbiology Results: Microbiology 05/23/22 17:25 Blood - Venous Blood Culture - Final No growth after 5 days. 05/23/22 19:40 Urine clean catch - Urine sarmiento top Urine Culture - Final No growth. 05/23/22 17:30 Blood - Venous Blood Culture - Final Coag negative Staphylococcus Physical Exam Vital Signs: Vital Signs: Last Vital Signs Temp 99.9 F 06/06/22 11:33 Pulse 104 H 06/06/22 11:33 Resp 22 H 06/06/22 11:33 BP 132/78 06/06/22 11:33 Pulse Ox 91 L 06/06/22 11:33 O2 Del Method 06/06/22 11:33 O2 Flow Rate 45 06/06/22 11:33 FiO2 45 06/06/22 11:33 Oxygen Flow Rate 70 05/23/22 21:38 BMI result Body Mass Index 17.4 Const: Other: Gen:? Awake alert talking in full se ntences on high-fl ow oxygen, cachect ic Neck: supple, n o JVD Lungs:? Carlie r, diminished , no wheeze, no rhonch i, no use of acces tatum muscles Heart : regular rate and rhythm, no murmur s Abd: soft, non-t myah, non-distend ed Ext: no edema S kin: warm/well-per fused Neuro: alert and oriented x3, no focal findings musculoskeletal ri ght hip good range of motion no redn ess no swelling Ps ych: appropriate a ffect Procedures Date of Service Date of Service: 06/06/22 Assessment and Plan Assessment and plan (1) Respiratory failure with hypoxia and hypercapnia: Status: Acute (2) COPD (chronic obstructive pulmonary disease): Status: Acute (3) Pneumonia: Status: Acute Plan Wean off HF, oximizer pendant to keep pox>87% Start Breo/spiriva start Theophylline, need to monitor levels Continue Prednisone 20mg check procalcitonin levels Time Spent With Patient Time: Total time managing care of this patient today ____ minutes. Progress Note: Quality Stroke Does the patient have a stroke diagnosis?: No
[2022-06-06] MEDS: Theophylline Anhydrous ER 400 MG TAB.ER.24H 200 MG PO ×2 (14:29→20:39)
[2022-06-06 16:23] LABS: Procalcitonin 0.03 ng/mL
[2022-06-07] VITALS (15 sets, daily range): BP systolic 109–136; BP diastolic 59–81; PULSE 85–101; RESP 12–20; TEMP 36.7–37.3; O2SAT 91–97
[2022-06-07] MEDS: Albuterol/Iprat 2.5/0.5MG 3 ML AMPUL.NEB INHALE ×4 (07:58→20:16)
[2022-06-07] MEDS: Fluticasone/Vilanterol 200/25 BLST.W.DEV 1 PUFF INHALE (08:08)
[2022-06-07] MEDS: guaiFENesin DM 100/10/5 ML 5 ML SYRUP 10 ML PO ×2 (08:58→16:02)
[2022-06-07] MEDS: PARoxetine HCL 10 MG TABLET PO (08:59)
[2022-06-07] MEDS: Omeprazole 20 MG CAPSULE.DR PO (08:59)
[2022-06-07] MEDS: Theophylline Anhydrous ER 400 MG TAB.ER.24H 200 MG PO ×2 (08:59→19:42)
[2022-06-07] MEDS: predniSONE 20 MG TABLET PO (08:59)
[2022-06-07] MEDS: methADONE HCl 10 MG TABLET PO ×2 (09:00→13:14)
--- NOTE | 2022-06-07 09:37 | PM.PNPUL ---
Subjective Subjective Date of Service: 06/07/22 Interval history: The patient was seen on examined. Overall feels better. He is sitting up. He still on high-flow. He is only on 30% FiO2 and 20 L. He should be off the high-flow at this time. Once the patient is able to go off the high-flow should be able to go to pulmonary rehabilitation. His baseline oxygen use 4 L nasal cannula. Objective Data Labs CBC & Chem 7: 05/31/22 06:04 06/01/22 06:16 Labs: Laboratory Results - last 24 hr 06/06/22 14:29 Procalcitonin 0.03 Microbiology Microbiology Results: Microbiology 05/23/22 17:25 Blood - Venous Blood Culture - Final No growth after 5 days. 05/23/22 19:40 Urine clean catch - Urine sarmiento top Urine Culture - Final No growth. 05/23/22 17:30 Blood - Venous Blood Culture - Final Coag negative Staphylococcus Review of Systems Review of Systems Gen: no fever Resp: - sob, - cough--chronic CV: no chest, no [place], no leg edema GI: No n/v, no abd pain Neuro: No confusion right hip pain with movment Yes all other systems are reviewed and are negative Physical Exam Vital Signs: Vital Signs: Last Vital Signs Temp 98.4 F 06/07/22 08:00 Pulse 100 06/07/22 08:09 Resp 20 06/07/22 08:09 BP 132/76 06/07/22 08:00 Pulse Ox 95 06/07/22 08:00 O2 Del Method 06/07/22 08:00 O2 Flow Rate 33 06/07/22 08:00 FiO2 31 06/07/22 08:00 Oxygen Flow Rate 70 05/23/22 21:38 BMI result Body Mass Index 17.4 Const: Other: Gen:? Awake alert talking in full se ntences on high-fl ow oxygen, cachect ic Neck: supple, n o JVD Lungs:? Carlie r, diminished , no wheeze, no rhonch i, no use of acces tatum muscles Heart : regular rate and rhythm, no murmur s Abd: soft, non-t myah, non-distend ed Ext: no edema S kin: warm/well-per fused Neuro: alert and oriented x3, no focal findings musculoskeletal ri ght hip good range of motion no redn ess no swelling Ps ych: appropriate a ffect Procedures Date of Service Date of Service: 06/07/22 Assessment and Plan Assessment and plan (1) COPD (chronic obstructive pulmonary disease): Status: Acute (2) Pneumonia: Status: Acute (3) Acute exacerbation of chronic obstructive airways disease: Status: Acute (4) Respiratory failure with hypoxia and hypercapnia: Status: Acute Plan stop HF, switch to oximizer pendant or nasal cannula to keep pox>87% Breo/spiriva Theophylline, need to monitor levels in 1-2 weeks Continue Prednisone 20mg Tx to rehab once on nasal cannula Time Spent With Patient Time: Total time managing care of this patient today ____ minutes. Progress Note: Quality Stroke Does the patient have a stroke diagnosis?: No
--- NOTE | 2022-06-07 11:19 | MHC.CM.PN ---
Per ROUNDS discussion, Patient remains on High Flow O2 and is not yet medically cleared for dc. PT recommends STR and CM will continue to follow.
--- NOTE | 2022-06-07 13:08 | MHC.CLN ---
F/U PO INTAKE 100% CONTINUES TO IMPROVE WT UP FROM ADMISSION TO 58.3KG DIET RX: REGULAR-APPROPRIATE PT RECEIVING ENSURE BID TO INCREASE KCALS PROVIDES 700KCALS, 40G PROTEIN CONTINUE TO MONITOR PO INTAKE CLOSELY
--- NOTE | 2022-06-07 15:51 | HO.PM.IMPN ---
Subjective Subjective Date of Service: 06/07/22 Interval History: Offers no acute complaints this morning sitting in chair denies chest pain, no shortness of breath, no right hip discomfort had an uneventful night no nausea no vomiting tolerating diet remains on high-flow nasal cannula portal 5 liters/minute finger oximetry 97% Review of Systems Review of Systems: Yes all other systems are reviewed and are negative Physical Exam Vital Signs: Vital Signs: Last Vital Signs Temp 98.4 F 06/07/22 15:23 Pulse 99 06/07/22 15:23 Resp 18 06/07/22 15:23 BP 109/59 L 06/07/22 15:23 Pulse Ox 97 06/07/22 15:23 O2 Del Method 06/07/22 15:23 O2 Flow Rate 45 06/07/22 15:23 FiO2 45 06/07/22 15:23 Oxygen Flow Rate 70 05/23/22 21:38 BMI result Body Mass Index 17.4 Const: Other: Gen:? Awake alert talking in full sentences on high-flow oxygen HEENT: sclera anicteric, moist mucus membranes Neck: supple, no JVD Lungs:? Coarse breath sound bilaterally , no wheeze, no rhonchi, no use of accessory muscles Heart: regular rate and rhythm, no murmurs Abd: soft, non-tender, non-distended Ext: no edema Skin: warm/well-perfused Neuro: alert and oriented x3, no focal findings musculoskeletal right hip good range of motion, no redness, no swelling, no tenderness Psych: appropriate affect Objective Data Active Medications Albuterol Sulfate (Albuterol Sulfate (0.083%) 2.5 Mg/3 Ml Vial.Neb) 2.5 mg INHALE Q2H PRN PRN Reason: Shortness of Breath/Wheezing Albuterol/Ipratropium (Albuterol/Iprat 2.5/0.5mg 3 Ml Ampul.Neb) 3 ml INHALE RQ4H WHILE AWAKE [facility] Last Admin: 06/07/22 11:39 Dose: 3 ml Documented By: OBED Fluticasone/Vilanterol (Fluticasone/Vilanterol 200/25 Blst.W.Dev) 1 puff INHALE RDAILY [facility] Last Admin: 06/07/22 08:08 Dose: 1 puff Documented By: ROSALIA Guaifenesin/Dextromethorphan (Guaifenesin Dm 100/10/5 Ml 5 Ml Syrup) 10 ml PO TID [facility] Last Admin: 06/07/22 08:58 Dose: 10 ml Documented By: MARÍA ELENA Methadone HCl (Methadone Hcl 10 Mg Tablet) 10 mg PO Q4H PRN PRN Reason: mod-sev pain Last Admin: 06/07/22 13:14 Dose: 10 mg Documented By: MARÍA ELENA Omeprazole (Omeprazole 20 Mg Capsule.Dr) 20 mg PO DAILY@0630 [facility] Last Admin: 06/07/22 08:59 Dose: 20 mg Documented By: MARÍA ELENA Paroxetine HCl (Paroxetine Hcl 10 Mg Tablet) 10 mg PO DAILY [facility] Last Admin: 06/07/22 08:59 Dose: 10 mg Documented By: MARÍA ELENA Prednisone (Prednisone 20 Mg Tablet) 20 mg PO DAILY [facility] Last Admin: 06/07/22 08:59 Dose: 20 mg Documented By: MARÍA ELENA Theophylline (Theophylline Anhydrous Er 400 Mg Tab.Er.24h) 200 mg PO BID [facility] Last Admin: 06/07/22 08:59 Dose: 200 mg Documented By: MARÍA ELENA Tiotropium [place] (Tiotropium [place] 18 Mcg Cap.W.Dev) 1 puff INHALE RDAILY [facility] Last Admin: 06/07/22 08:08 Dose: 1 puff Documented By: ROSALIA Labs CBC & Chem 7: 05/31/22 06:04 06/01/22 06:16 Labs: Laboratory Results - last 24 hr 06/06/22 14:29 Procalcitonin 0.03 Assessment and Plan (1) COPD (chronic obstructive pulmonary disease): Status: Acute (2) Pneumonia: Status: Acute Plan d#12 56yo M with COPD, chronic hypoxia on 4L O2, HCV, IDU + pulmonary nodules presenting with dyspnea + hypoxia, initially admitted to ICU on BiPAP, stepped-down to [facility] [place] [facility] 05/25/22 # acute hypoxic resp failure due to COPD + PNA Feeling better, denies chest pain, no shortness of breath, persistent hypoxia goal SaO2 88-92% [baseline O2 requirement 4L]. CTA negative for PE. But showed bronchiectasis with bronchial wall thickening and consolidation at both lung bases, persistent extensive tree-in-bud opacities in lungs bilaterally Patient evaluated by Dr. Mathias started on theophylline Continue high-flow nasal cannula and gradually wean as tolerated # PNA - s/p 9d of vanco + pip-gal, and 3 days of doxy + amox-clav , no recurrent fevers, normal WBC # COPD exacerbation no shortness of breath, lung clear to exam on DuoNeb q.4 hours while awake on po prednisone 20 mg daily, gradually taper encourage oob to chair # thrombocytopenia - likely due to PNA, improved # OUD - methadone, will DC IV morphine, encourage out of bed to chair use Tylenol as needed # VTE ppx: SCDs, no heparin given low plts # dispo: eventual STR In my clinical judgment, the patient requires continued inpatient hospitalization for the following reasons: hypoxia, STR placement Time Spent With Patient Time: Total time managing care of this patient today ____ minutes. Quality Stroke Does the patient have a stroke diagnosis?: No VTE Prior VTE?: No VTE Risk Level:: Medical - moderate - high VTE Device Contraindication: Treatment Not Indicated VTE Drug Contraindication: N/A - Med Ordered
--- NOTE | 2022-06-07 21:00 | PC.RT ---
Patient C/O nasal pain associated with High Flow Nasal Cannula. Patient requests Frazier cannula. Patient titrated on frazier to 4L for SPO2 96%. HFNC placed on standby.
[2022-06-08] VITALS (12 sets, daily range): BP systolic 112–143; BP diastolic 69–89; PULSE 77–109; RESP 16–20; TEMP 36.3–37.4; O2SAT 88–98; BMI 17.0
[2022-06-08] MEDS: Omeprazole 20 MG CAPSULE.DR PO (06:10)
[2022-06-08] MEDS: Fluticasone/Vilanterol 200/25 BLST.W.DEV 1 PUFF INHALE (07:56)
[2022-06-08 07:58] LABS: Glucose, Whole Blood 83 mg/dL (60-115)
[2022-06-08] MEDS: PARoxetine HCL 10 MG TABLET PO (08:08)
[2022-06-08] MEDS: predniSONE 20 MG TABLET PO (08:08)
[2022-06-08] MEDS: methADONE HCl 10 MG TABLET PO ×3 (08:20→20:18)
[2022-06-08] MEDS: Albuterol/Iprat 2.5/0.5MG 3 ML AMPUL.NEB INHALE ×4 (09:09→20:00)
--- NOTE | 2022-06-08 13:19 | HO.PM.IMPN ---
Subjective Subjective Date of Service: 06/08/22 Interval History: Resting comfortably in bed offers no acute complaints was on 4 L of oxygen this morning with finger oximetry 95% but noted to have drop in finger oximetry therefore placed back on 8 L of oxygen, patient denies chest pain, no palpitation, no worsening cough, or shortness of breath, no fevers, no chills, tolerating diet, no lightheadedness or dizziness. Physical Exam Vital Signs: Vital Signs: Last Vital Signs Temp 97.6 F 06/08/22 11:40 Pulse 104 H 06/08/22 11:40 Resp 18 06/08/22 11:40 BP 119/77 06/08/22 11:40 Pulse Ox 95 06/08/22 11:40 O2 Del Method 06/08/22 11:40 O2 Flow Rate 14 06/08/22 11:40 FiO2 45 06/07/22 19:41 Oxygen Flow Rate 70 05/23/22 21:38 BMI result Body Mass Index 17.0 Const: Other: Gen:? Awake alert talking in full se ntences on high-fl ow oxygen HEENT: s clera anicteric, m oist mucus membran es Neck: supple, n o JVD Lungs:? Coar se breath sound bi laterally , no whe sabrina, no rhonchi, n o use of accessory muscles Heart: re gular rate and rhy thm, no murmurs Ab d: soft, non-tende r, non-distended E xt: no edema Skin: warm/well-perfuse d Neuro: alert and oriented x3, no f ocal findings Psyc h: appropriate aff ect Objective Data Active Medications Albuterol Sulfate (Albuterol Sulfate (0.083%) 2.5 Mg/3 Ml Vial.Neb) 2.5 mg INHALE Q2H PRN PRN Reason: Shortness of Breath/Wheezing Albuterol/Ipratropium (Albuterol/Iprat 2.5/0.5mg 3 Ml Ampul.Neb) 3 ml INHALE RQ4H WHILE AWAKE [facility] Last Admin: 06/08/22 11:30 Dose: 3 ml Documented By: ISIDRA Fluticasone/Vilanterol (Fluticasone/Vilanterol 200/25 Blst.W.Dev) 1 puff INHALE RDAILY [facility] Last Admin: 06/08/22 07:56 Dose: 1 puff Documented By: ISIDRA Guaifenesin/Dextromethorphan (Guaifenesin Dm 100/10/5 Ml 5 Ml Syrup) 10 ml PO TID [facility] Last Admin: 06/08/22 08:24 Dose: Not Given Documented By: SD Non-Admin Reason: Patient Refused Omeprazole (Omeprazole 20 Mg Capsule.Dr) 20 mg PO DAILY@0630 [facility] Last Admin: 06/08/22 06:10 Dose: 20 mg Documented By: JOSE ALBERTO Paroxetine HCl (Paroxetine Hcl 10 Mg Tablet) 10 mg PO DAILY [facility] Last Admin: 06/08/22 08:08 Dose: 10 mg Documented By: SD Prednisone (Prednisone 20 Mg Tablet) 20 mg PO DAILY [facility] Last Admin: 06/08/22 08:08 Dose: 20 mg Documented By: SD Theophylline (Theophylline Anhydrous Er 400 Mg Tab.Er.24h) 200 mg PO BID [facility] Last Admin: 06/08/22 09:43 Dose: Not Given Documented By: SD Non-Admin Reason: Patient Refused Tiotropium Vernalis (Tiotropium Vernalis 18 Mcg Cap.W.Dev) 1 puff INHALE RDAILY [facility] Last Admin: 06/08/22 07:56 Dose: 1 puff Documented By: ISIDRA Labs CBC & Chem 7: 05/31/22 06:04 06/01/22 06:16 Labs: Laboratory Results - last 24 hr 06/08/22 07:26 POC Glucose 83 Assessment and Plan (1) COPD (chronic obstructive pulmonary disease): Status: Acute (2) Pneumonia: Status: Acute Plan d#12 56yo M with COPD, chronic hypoxia on 4L O2, HCV, IDU + pulmonary nodules presenting with dyspnea + hypoxia, initially admitted to ICU on BiPAP, [place] [facility] # acute hypoxic resp failure due to COPD exacerbation + PNA Feeling better, denies chest pain, no shortness of breath, persistent hypoxia goal SaO2 88-92% [baseline O2 requirement 4L]. CTA negative for PE. But showed bronchiectasis with bronchial wall thickening and consolidation at both lung bases, persistent extensive tree-in-bud opacities in lungs bilaterally on theophylline , Spiriva, Breo, prednisone, scheduled updraft q.4 hours, cough medication Continue to wean oxygen as tolerated # PNA - s/p 9d of vanco + pip-gal, and 3 days of doxy + amox-clav , no recurrent fevers, normal WBC # thrombocytopenia - likely due to PNA, improved to 95,000 # OUD - on methadone, encourage out of bed to chair use Tylenol as needed # VTE ppx: SCDs, no heparin given low plts # dispo: eventual STR In my clinical judgment, the patient requires continued inpatient hospitalization for the following reasons: Persistent hypoxia, STR placement Time Spent With Patient Time: Total time managing care of this patient today ____ minutes. Quality Stroke Does the patient have a stroke diagnosis?: No VTE Prior VTE?: No VTE Risk Level:: Medical - moderate - high VTE Device Contraindication: Treatment Not Indicated VTE Drug Contraindication: N/A - Med Ordered
[2022-06-08] MEDS: guaiFENesin DM 100/10/5 ML 5 ML SYRUP 10 ML PO ×2 (14:35→20:17)
[2022-06-08] MEDS: Theophylline Anhydrous ER 400 MG TAB.ER.24H 200 MG PO (20:17)
[2022-06-09] VITALS (12 sets, daily range): BP systolic 102–131; BP diastolic 60–75; PULSE 86–104; RESP 16–20; TEMP 36.1–37.1; O2SAT 92–98
[2022-06-09] MEDS: methADONE HCl 10 MG TABLET PO ×3 (01:00→17:03)
[2022-06-09] MEDS: Omeprazole 20 MG CAPSULE.DR PO (06:18)
[2022-06-09] MEDS: Albuterol/Iprat 2.5/0.5MG 3 ML AMPUL.NEB INHALE ×4 (07:38→20:54)
[2022-06-09] MEDS: Fluticasone/Vilanterol 200/25 BLST.W.DEV 1 PUFF INHALE (07:38)
[2022-06-09] MEDS: guaiFENesin DM 100/10/5 ML 5 ML SYRUP 10 ML PO ×3 (10:03→20:05)
[2022-06-09] MEDS: Theophylline Anhydrous ER 400 MG TAB.ER.24H 200 MG PO ×2 (10:03→20:06)
[2022-06-09] MEDS: predniSONE 20 MG TABLET PO (10:04)
[2022-06-09] MEDS: PARoxetine HCL 10 MG TABLET PO (10:04)
--- NOTE | 2022-06-09 10:55 | MHC.CLN ---
F/U PO INTAKE 100% CONTINUES TO IMPROVE DIET RX: REGULAR-APPROPRIATE PT RECEIVING ENSURE BID TO INCREASE KCALS PROVIDES 700KCALS, 40G PROTEIN CONTINUE TO MONITOR PO INTAKE CLOSELY
--- NOTE | 2022-06-09 13:30 | HO.PM.IMPN ---
Subjective Subjective Date of Service: 06/09/22 Interval History: patient feeling better this morning doing better exercises offers no acute complaints, tolerating diet no nausea no vomiting no abdominal pain, no overnight events, no fevers no chills, no headache, no lightheadedness or dizziness. Review of Systems Review of Systems: Yes all other systems are reviewed and are negative Physical Exam Vital Signs: Vital Signs: Last Vital Signs Temp 97.0 F 06/09/22 08:00 Pulse 92 06/09/22 11:51 Resp 20 06/09/22 11:32 BP 113/66 06/09/22 08:00 Pulse Ox 97 06/09/22 08:00 O2 Del Method 06/09/22 03:19 O2 Flow Rate 5 06/09/22 03:19 FiO2 45 06/07/22 19:41 Oxygen Flow Rate 70 05/23/22 21:38 BMI result Body Mass Index 17.0 Const: Other: Gen:? Awake alert talking in full sentences HEENT: sclera anicteric, moist mucus membranes Neck: supple, no JVD Lungs:? clear to auscultation, no wheeze, no rhonchi, no use of accessory?muscles Heart: regular rate and rhythm, no murmurs Abd: soft, non-tender, non-distended Ext: no edema Skin:?warm/well-perfused Neuro: alert and?oriented x3, no focal findings Psych: appropriate affect Objective Data Active Medications Albuterol Sulfate (Albuterol Sulfate (0.083%) 2.5 Mg/3 Ml Vial.Neb) 2.5 mg INHALE Q2H PRN PRN Reason: Shortness of Breath/Wheezing Albuterol/Ipratropium (Albuterol/Iprat 2.5/0.5mg 3 Ml Ampul.Neb) 3 ml INHALE RQ4H WHILE AWAKE [facility] Last Admin: 06/09/22 11:30 Dose: 3 ml Documented By: SRAVAN Fluticasone/Vilanterol (Fluticasone/Vilanterol 200/25 Blst.W.Dev) 1 puff INHALE RDAILY [facility] Last Admin: 06/09/22 07:38 Dose: 1 puff Documented By: SRAVAN Guaifenesin/Dextromethorphan (Guaifenesin Dm 100/10/5 Ml 5 Ml Syrup) 10 ml PO TID [facility] Last Admin: 06/09/22 10:03 Dose: 10 ml Documented By: GILBERTO Methadone HCl (Methadone Hcl 10 Mg Tablet) 10 mg PO Q4H PRN PRN Reason: Pain, Severe (Pain Scale 7-10) Last Admin: 06/09/22 10:05 Dose: 10 mg Documented By: GILBERTO Omeprazole (Omeprazole 20 Mg Capsule.Dr) 20 mg PO DAILY@0630 [facility] Last Admin: 06/09/22 06:18 Dose: 20 mg Documented By: JACKELYN Paroxetine HCl (Paroxetine Hcl 10 Mg Tablet) 10 mg PO DAILY [facility] Last Admin: 06/09/22 10:04 Dose: 10 mg Documented By: GILBERTO Prednisone (Prednisone 20 Mg Tablet) 20 mg PO DAILY [facility] Last Admin: 06/09/22 10:04 Dose: 20 mg Documented By: GILBERTO Theophylline (Theophylline Anhydrous Er 400 Mg Tab.Er.24h) 200 mg PO BID [facility] Last Admin: 06/09/22 10:03 Dose: 200 mg Documented By: GILBERTO Tiotropium [place] (Tiotropium [place] 18 Mcg Cap.W.Dev) 1 puff INHALE RDAILY [facility] Last Admin: 06/09/22 07:39 Dose: 1 puff Documented By: SRAVAN Labs CBC & Chem 7: 05/31/22 06:04 06/01/22 06:16 Assessment and Plan (1) COPD (chronic obstructive pulmonary disease): Status: Acute (2) Pneumonia: Status: Acute Plan d#12 56yo M with COPD, chronic hypoxia on 4L O2, HCV, IDU + pulmonary nodules presenting with dyspnea + hypoxia, initially admitted to ICU on BiPAP, stepped-down to [facility] [place] 05/25/22 # acute hypoxic resp failure due to COPD exacerbation + PNA Feeling better, denies chest pain, no shortness of breath, persistent hypoxia O2 wean down to 5 L goal SaO2 88-92% [baseline O2 requirement 4L]. CTA negative for PE. But showed bronchiectasis with bronchial wall thickening and consolidation at both lung bases, persistent extensive tree-in-bud opacities in lungs bilaterally on theophylline , Spiriva, Breo, prednisone, scheduled updraft q.4 hours, cough medication Continue to wean oxygen as tolerated # PNA - s/p 9d of vanco + pip-gal, and 3 days of doxy + amox-clav , no recurrent fevers, normal WBC # thrombocytopenia - likely due to PNA, improved to 95,000 # OUD - on methadone, encourage out of bed to chair use Tylenol as needed # VTE ppx: SCDs, no heparin given low plts # dispo: eventual STR In my clinical judgment, the patient requires continued inpatient hospitalization for the following reasons: Persistent hypoxia, STR placement Time Spent With Patient Time: Total time managing care of this patient today ____ minutes. Quality Stroke Does the patient have a stroke diagnosis?: No VTE Prior VTE?: No VTE Risk Level:: Medical - moderate - high VTE Device Contraindication: Treatment Not Indicated VTE Drug Contraindication: N/A - Med Ordered
--- NOTE | 2022-06-09 15:33 | MHC.CM.PN ---
EM[facility] REVIEWED O2 [facility] 5L[facility] AWAITING ANSWER IF CAN ACCEPT PT. CM WILL CONTINUE TO FOLLOW
[2022-06-10] VITALS (8 sets, daily range): BP systolic 101–136; BP diastolic 64–80; PULSE 88–105; RESP 18–20; TEMP 36.2–37.1; O2SAT 92–99
[2022-06-10] MEDS: methADONE HCl 10 MG TABLET PO ×3 (03:40→20:03)
[2022-06-10] MEDS: Omeprazole 20 MG CAPSULE.DR PO (05:31)
[2022-06-10] MEDS: Albuterol/Iprat 2.5/0.5MG 3 ML AMPUL.NEB INHALE ×4 (07:58→19:48)
[2022-06-10] MEDS: Fluticasone/Vilanterol 200/25 BLST.W.DEV 1 PUFF INHALE (07:59)
[2022-06-10] MEDS: PARoxetine HCL 10 MG TABLET PO (09:22)
[2022-06-10] MEDS: Theophylline Anhydrous ER 400 MG TAB.ER.24H 200 MG PO ×2 (09:22→20:03)
[2022-06-10] MEDS: predniSONE 20 MG TABLET PO (09:22)
[2022-06-10] MEDS: guaiFENesin DM 100/10/5 ML 5 ML SYRUP 10 ML PO ×2 (09:22→14:57)
--- NOTE | 2022-06-10 10:55 | MHC.CM.PN ---
EMR REVIEWED, PT REMAINS ON 4.5-5L O2 VIA [facility], CM HAS ATTEMPTED TO CONTACT [facility] AND [facility] NO BED OFFERS AT THIS TIME, [facility] CONT TO REPORT NO BED AVAILABILITY AND CM AWAITING RESPONSE FROM [facility]. CM WILL CONT TO FOLLOW D/C NEEDS.
--- NOTE | 2022-06-10 15:09 | P.PNIM_ITS ---
Subjective Subjective Date of Service: 06/10/22 Interval History: being followed for acute on chronic hypoxic respiratory failure. offers no acute complaints of shortness of breath, cough, no pain, no fevers, no chills no nausea no vomiting, tolerating diet no other acute issues overni ght, on 4-5 L of oxygen by nasal cannula. Review of Systems Review of Systems: Yes all other systems are reviewed and are negative Physical Exam Vital Signs: Vital Signs: Last Vital Signs Temp 97.2 F 06/10/22 12:00 Pulse 104 H 06/10/22 15:02 Resp 18 06/10/22 15:02 BP 101/64 06/10/22 12:00 Pulse Ox 98 06/10/22 12:00 O2 Del Method 06/10/22 12:00 O2 Flow Rate 4.5 06/10/22 12:00 FiO2 45 06/07/22 19:41 Oxygen Flow Rate 70 05/23/22 21:38 BMI result Body Mass Index 17.0 Const: Other: Gen:? Awake alert talking in full sentences HEENT: sclera anicteric, moist mucus membranes Neck: supple, no JVD Lungs:? clear to auscultation, no wheeze, no rhonchi, no use of accessory?muscles Heart: regular rate and rhythm, no murmurs Abd: soft, non-tender, non-distended Ext: no edema Skin:?warm/well-perfused Neuro: alert and?oriented x3, no focal findings Psych: appropriate affect Objective Data Active Medications Albuterol Sulfate (Albuterol Sulfate (0.083%) 2.5 Mg/3 Ml Vial.Neb) 2.5 mg INHALE Q2H PRN PRN Reason: Shortness of Breath/Wheezing Albuterol/Ipratropium (Albuterol/Iprat 2.5/0.5mg 3 Ml Ampul.Neb) 3 ml INHALE RQ4H WHILE AWAKE [facility] Last Admin: 06/10/22 15:01 Dose: 3 ml Documented By: OBED Fluticasone/Vilanterol (Fluticasone/Vilanterol 200/25 Blst.W.Dev) 1 puff INHALE RDAILY [facility] Last Admin: 06/10/22 07:59 Dose: 1 puff Documented By: TRI Guaifenesin/Dextromethorphan (Guaifenesin Dm 100/10/5 Ml 5 Ml Syrup) 10 ml PO TID [facility] Last Admin: 06/10/22 14:57 Dose: 10 ml Documented By: YANIRA Methadone HCl (Methadone Hcl 10 Mg Tablet) 10 mg PO Q6H PRN PRN Reason: Pain, Severe (Pain Scale 7-10) Last Admin: 06/10/22 09:21 Dose: 10 mg Documented By: YANIRA Omeprazole (Omeprazole 20 Mg Capsule.Dr) 20 mg PO DAILY@0630 [facility] Last Admin: 06/10/22 05:31 Dose: 20 mg Documented By: JACKELYN Paroxetine HCl (Paroxetine Hcl 10 Mg Tablet) 10 mg PO DAILY [facility] Last Admin: 06/10/22 09:22 Dose: 10 mg Documented By: YANIRA Prednisone (Prednisone 20 Mg Tablet) 20 mg PO DAILY [facility] Last Admin: 06/10/22 09:22 Dose: 20 mg Documented By: YANIRA Theophylline (Theophylline Anhydrous Er 400 Mg Tab.Er.24h) 200 mg PO BID [facility] Last Admin: 06/10/22 09:22 Dose: 200 mg Documented By: YANIRA Tiotropium [place] (Tiotropium [place] 18 Mcg Cap.W.Dev) 1 puff INHALE RDAILY [facility] Last Admin: 06/10/22 08:00 Dose: 1 puff Documented By: [facility] Labs CBC & Chem 7: 05/31/22 06:04 06/01/22 06:16 Assessment and Plan (1) COPD (chronic obstructive pulmonary disease): Status: Acute (2) Pneumonia: Status: Acute Plan d#12 56yo M with COPD, chronic hypoxia on 4L O2, HCV, IDU + pulmonary nodules presenting with dyspnea + hypoxia, initially admitted to ICU on BiPAP, stepped- down to [facility] [place] 05/25/22 # acute hypoxic resp failure due to COPD exacerbation + PNA Feeling better, denies chest pain, no shortness of breath, persistent hypoxia O2 wean down to 5 L goal SaO2 88-92% [baseline O2 requirement 4L]. CTA negative for PE, showed bronchiectasis with bronchial wall thickening and consolidation at both lung bases, persistent extensive tree-in-bud opacities in lungs bilaterally on theophylline , Spiriva, Breo, prednisone, scheduled updraft q.4 hours, cough medication. # PNA - s/p 9d of vanco + pip-gal, and 3 days of doxy + amox-clav , no recurrent fevers, normal WBC # thrombocytopenia - likely due to PNA, improved to 95,000 # OUD - on methadone, encourage out of bed to chair use Tylenol as needed # VTE ppx: SCDs, no heparin given low plts # dispo: eventual STR In my clinical judgment, the patient requires continued inpatient hospitaliz ation for the following reasons: safe dc to STR placement Time Spent With Patient Time: Total time managing care of this patient today ____ minutes. Quality Stroke Does the patient have a stroke diagnosis?: No VTE Prior VTE?: No VTE Risk Level:: Medical - moderate - high VTE Device Contraindication: Treatment Not Indicated VTE Drug Contraindication: N/A - Med Ordered
[2022-06-10] MEDS: Magnesium Hydrox/Alum Hydrox 30 ML ORAL.SUSP 15 ML PO (22:47)
[2022-06-11] VITALS (11 sets, daily range): BP systolic 108–140; BP diastolic 68–90; PULSE 95–114; RESP 12–20; TEMP 36–37.2; O2SAT 91–96
--- NOTE | 2022-06-11 | ECG_ITS ---
Test Reason : TACHYCARDIA Blood Pressure : / mmHG Vent. Rate : 112 BPM Atrial Rate : 112 BPM P-R Int : 112 ms QRS Dur : 074 ms QT Int : 310 ms P-R-T Axes : 069 061 062 degrees QTc Int : 423 ms Sinus tachycardia Otherwise normal ECG When compared with ECG of 23-MAY-2022 17:26, No significant change was found Referred By: Lara Jin Electronically Signed By:Addison Zhegn
[2022-06-11] MEDS: ondansetron HCL 4 MG/2 ML VIAL IVPUSH ×3 (01:52→20:21)
[2022-06-11] MEDS: Omeprazole 20 MG CAPSULE.DR PO (06:01)
[2022-06-11] MEDS: Theophylline Anhydrous ER 400 MG TAB.ER.24H 200 MG PO ×2 (07:44→20:21)
[2022-06-11] MEDS: methADONE HCl 10 MG TABLET PO ×2 (07:44→15:18)
[2022-06-11] MEDS: PARoxetine HCL 10 MG TABLET PO (07:45)
[2022-06-11] MEDS: predniSONE 20 MG TABLET PO (07:45)
[2022-06-11] MEDS: guaiFENesin DM 100/10/5 ML 5 ML SYRUP 10 ML PO ×2 (07:45→20:21)
[2022-06-11] MEDS: Fluticasone/Vilanterol 200/25 BLST.W.DEV 1 PUFF INHALE (08:10)
[2022-06-11] MEDS: Albuterol/Iprat 2.5/0.5MG 3 ML AMPUL.NEB INHALE ×4 (08:12→20:38)
--- NOTE | 2022-06-11 12:41 | HO.PM.IMPN ---
Subjective Subjective Date of Service: 06/11/22 Interval History: Seen in follow up for acute on chronic hypoxic respiratory failure, COPD exacerbation, and pneumonia Interval history: Reporting anxiety, nausea. No vomiting, diarrhea, abd pain, palpitations, sob, chest pain. On 4L O2, which is his baseline Review of Systems General: No fevers, malaise, unintentional weight loss Cardiovascular: No chest pain, palpitations, or leg edema Respiratory: No shortness of breath, wheezing, cough GI: +nausea. No abdominal pain, vomiting, diarrhea, constipation, melena, hematochezia : No dysuria, hematuria, increased urinary frequency, decreased urinary output MSK: No myalgia, back pain Neuro: No headaches, weakness, paresthesias Psych: +anxiety Skin: No rashes or lesions Physical Exam Vital Signs: Vital Signs: Last Vital Signs Temp 96.8 F 06/11/22 11:24 Pulse 111 H 06/11/22 11:24 Resp 20 06/11/22 12:12 BP 108/74 06/11/22 11:24 Pulse Ox 96 06/11/22 11:24 O2 Del Method 06/11/22 11:24 O2 Flow Rate 5 06/11/22 11:24 FiO2 45 06/07/22 19:41 Oxygen Flow Rate 70 05/23/22 21:38 BMI result Body Mass Index 17.0 Constitutional - Awake and Alert, No apparent distress Eyes - PERRLA, EOMI Cardiovascular - S1S2, RRR, No edema Respiratory - Normal lung expansion, Normal respiratory effort, No respiratory distress, CTA bilaterally Gastrointestinal - NT / ND; +BS; No rebound or guarding Extremities - no calf tenderness bilaterally, no swelling Skin - Warm/Dry Neurological - Alert & oriented x3, slightly tremulous Psychological - anxious appearing Objective Data Active Medications Al Hydroxide/Mg Hydroxide (Magnesium Hydrox/Alum Hydrox 30 Ml Oral.Susp) 15 ml PO Q4H PRN PRN Reason: heartburn Last Admin: 06/10/22 22:47 Dose: 15 ml Documented By: SARWAT Albuterol Sulfate (Albuterol Sulfate (0.083%) 2.5 Mg/3 Ml Vial.Neb) 2.5 mg INHALE Q2H PRN PRN Reason: Shortness of Breath/Wheezing Albuterol/Ipratropium (Albuterol/Iprat 2.5/0.5mg 3 Ml Ampul.Neb) 3 ml INHALE RQ4H WHILE AWAKE [facility] Last Admin: 06/11/22 12:11 Dose: 3 ml Documented By: OBED Fluticasone/Vilanterol (Fluticasone/Vilanterol 200/25 Blst.W.Dev) 1 puff INHALE RDAILY [facility] Last Admin: 06/11/22 08:10 Dose: 1 puff Documented By: TRI Guaifenesin/Dextromethorphan (Guaifenesin Dm 100/10/5 Ml 5 Ml Syrup) 10 ml PO TID [facility] Last Admin: 06/11/22 07:45 Dose: 10 ml Documented By: JOSE Methadone HCl (Methadone Hcl 10 Mg Tablet) 10 mg PO Q6H PRN PRN Reason: Pain, Severe (Pain Scale 7-10) Last Admin: 06/11/22 07:44 Dose: 10 mg Documented By: JOSE Omeprazole (Omeprazole 20 Mg Capsule.Dr) 20 mg PO DAILY@0630 [facility] Last Admin: 06/11/22 06:01 Dose: 20 mg Documented By: SARWAT Ondansetron HCl (Ondansetron Hcl 4 Mg/2 Ml Vial) 4 mg IVPUSH Q8H PRN PRN Reason: Nausea and Vomiting Last Admin: 06/11/22 10:15 Dose: 4 mg Documented By: JOSE Paroxetine HCl (Paroxetine Hcl 10 Mg Tablet) 10 mg PO DAILY [facility] Last Admin: 06/11/22 07:45 Dose: 10 mg Documented By: JOSE Prednisone (Prednisone 20 Mg Tablet) 20 mg PO DAILY [facility] Last Admin: 06/11/22 07:45 Dose: 20 mg Documented By: JOSE Theophylline (Theophylline Anhydrous Er 400 Mg Tab.Er.24h) 200 mg PO BID [facility] Last Admin: 06/11/22 07:44 Dose: 200 mg Documented By: JOSE Tiotropium [place] (Tiotropium [place] 18 Mcg Cap.W.Dev) 1 puff INHALE RDAILY [facility] Last Admin: 06/11/22 08:10 Dose: 1 puff Documented By: TRI Labs CBC & Chem 7: 06/11/22 12:55 06/11/22 12:55 Assessment and Plan (1) COPD (chronic obstructive pulmonary disease): Status: Acute (2) Pneumonia: Status: Acute Plan d#13 56yo M with COPD, chronic hypoxia on 4L O2, HCV, IDU + pulmonary nodules presenting with dyspnea + hypoxia, initially admitted to ICU on BiPAP, stepped-down to [facility] 05/25/22 # acute hypoxic resp failure due to COPD exacerbation + PNA Feeling better, denies chest pain, no shortness of breath, persistent hypoxia O2 wean down to 5 L goal SaO2 88-92% [baseline O2 requirement 4L]. CTA negative for PE, showed bronchiectasis with bronchial wall thickening and consolidation at both lung bases, persistent extensive tree-in-bud opacities in lungs bilaterally on theophylline , Spiriva, Breo, prednisone, scheduled updraft q.4 hours, cough medication. # PNA - s/p 9d of vanco + pip-gal, and 3 days of doxy + amox-clav , no recurrent fevers, normal WBC #Sinus Tachycardia -EKG sinus tach -?anxiety, lorazepam prn -No other SIRS criteria to suggest infection # thrombocytopenia - likely due to PNA, improved to 95,000 # OUD - on methadone, encourage out of bed to chair use Tylenol as needed # VTE ppx: SCDs, no heparin given low plts # dispo: eventual STR In my clinical judgment, the patient requires continued inpatient hospitalization for the following reasons: safe dc to STR placement Time Spent With Patient Time: Total time managing care of this patient today ____ minutes. Quality Stroke Does the patient have a stroke diagnosis?: No VTE Prior VTE?: No VTE Risk Level:: Medical - moderate - high VTE Device Contraindication: Treatment Not Indicated VTE Drug Contraindication: N/A - Med Ordered
[2022-06-11 13:04] LABS: Imm Gran Abs Auto 0.03 X10*3/uL (0.00-0.03); Imm Gran Pct Auto 0.4 % (0.0-0.4); PLT CLUMP 1; Red Cell Distribution Width 15.9 % (11.0-16.0); SCAN SMEAR FLAG 1
[2022-06-11 13:06] LABS: Basophils Percent Auto 0.1 % (0-2); Eosinophils Percent Auto 0.3 % (0-4); Hematocrit 36.7 % (42.0-52.0); Hemoglobin 11.9 g/dl (14.0-18.0); Lymphocytes Absolute Auto 0.3 X10*3/uL (1.2-4.9); Lymphocytes Percent Auto 4.2 % (20-40); Mean Corpuscular HGB Conc 32.4 g/dl (31.0-36.0); Mean Corpuscular Hemoglobin 27.2 pg (27.0-33.0); Mean Platelet Volume 8.9 fL (9.4-12.4); Monocytes Absolute Auto 0.1 X10*3/uL (0.1-1.2); Monocytes Percent Auto 1.6 % (2-11); Neutrophils Absolute Auto 6.4 x10*3/uL (2.0-8.3); Neutrophils Percent Auto 93.4 % (45-73); Red Blood Count 4.37 X10*6/uL (4.60-5.80)
[2022-06-11 13:10] LABS: White Blood Count 6.9 X10*3/uL (4.8-10.8)
[2022-06-11 13:11] LABS: MANUAL DIFF FLAG NO; Platelet Count 62 X10*3/uL (160-400)
[2022-06-11 13:18] LABS: Anion Gap 14 (12-20); Blood Urea Nitrogen 17 mg/dL (9-16); Calcium 8.5 mg/dL (8.4-10.2); Carbon Dioxide 27 mmol/L (22-29); Chloride 100 mmol/L (96-108); Creatinine Clr Calc Pharmacy 93.4; Estimated Glomerular Filt Rate > 60; Glucose Random 165 mg/dL (60-115); Potassium 4.4 mmol/L (3.3-5.1); Sodium 137 mmol/L (135-145)
[2022-06-12] VITALS (9 sets, daily range): BP systolic 107–125; BP diastolic 61–80; PULSE 95–114; RESP 15–20; TEMP 36.2–37.4; O2SAT 91–96
[2022-06-12] MEDS: methADONE HCl 10 MG TABLET PO ×4 (02:40→23:14)
[2022-06-12] MEDS: Magnesium Hydrox/Alum Hydrox 30 ML ORAL.SUSP 15 ML PO (02:43)
[2022-06-12] MEDS: ondansetron HCL 4 MG/2 ML VIAL IVPUSH ×2 (04:08→17:52)
[2022-06-12] MEDS: Omeprazole 20 MG CAPSULE.DR PO (05:26)
[2022-06-12] MEDS: Albuterol/Iprat 2.5/0.5MG 3 ML AMPUL.NEB INHALE ×4 (08:14→19:59)
[2022-06-12] MEDS: Fluticasone/Vilanterol 200/25 BLST.W.DEV 1 PUFF INHALE (08:15)
[2022-06-12] MEDS: Theophylline Anhydrous ER 400 MG TAB.ER.24H 200 MG PO ×2 (10:38→22:01)
[2022-06-12] MEDS: PARoxetine HCL 10 MG TABLET PO (10:40)
[2022-06-12] MEDS: predniSONE 20 MG TABLET PO (10:43)
--- NOTE | 2022-06-12 11:22 | MHC.CLN ---
F/U PO INTAKE 75-100% DIET RX: REGULAR-APPROPRIATE PT RECEIVING ENSURE BID TO INCREASE KCALS PROVIDES 700KCALS, 40G PROTEIN FAVORABLE WEIGHT GAIN TREND SINCE ADMISSION, +4.6% CONTINUE TO MONITOR PO INTAKE CLOSELY
--- NOTE | 2022-06-12 12:23 | P.PNIM_ITS ---
Subjective Subjective Date of Service: 06/12/22 Interval History: Seen in follow up for acute on chronic hypoxic respiratory failure, COPD exacerbation, and pneumonia Physical Exam Vital Signs: Vital Signs: Last Vital Signs Temp 97.6 F 06/12/22 07:35 Pulse 95 06/12/22 11:25 Resp 20 06/12/22 11:25 BP 119/75 06/12/22 07:35 Pulse Ox 94 06/12/22 07:35 O2 Del Method 06/12/22 07:35 O2 Flow Rate 4 06/12/22 07:35 FiO2 45 06/07/22 19:41 Oxygen Flow Rate 70 05/23/22 21:38 BMI result Body Mass Index 17.0 Appearing in no acute distress lung sounds are clear to auscultation heart regular rate rhythm, clear S1, S2 positive bowel sounds, abdomen is soft, nontender neuro patient is alert x3, no focal deficits Objective Data Active Medications Al Hydroxide/Mg Hydroxide (Magnesium Hydrox/Alum Hydrox 30 Ml Oral.Susp) 15 ml PO Q4H PRN PRN Reason: heartburn Last Admin: 06/12/22 02:43 Dose: 15 ml Documented By: CHRISTIN Albuterol Sulfate (Albuterol Sulfate (0.083%) 2.5 Mg/3 Ml Vial.Neb) 2.5 mg INHALE Q2H PRN PRN Reason: Shortness of Breath/Wheezing Albuterol/Ipratropium (Albuterol/Iprat 2.5/0.5mg 3 Ml Ampul.Neb) 3 ml INHALE RQ4H WHILE AWAKE [facility] Last Admin: 06/12/22 11:22 Dose: 3 ml Documented By: DEEDEESLOGAN Fluticasone/Vilanterol (Fluticasone/Vilanterol 200/25 Blst.W.Dev) 1 puff INHALE RDAILY [facility] Last Admin: 06/12/22 08:15 Dose: 1 puff Documented By: ISIDRA Guaifenesin/Dextromethorphan (Guaifenesin Dm 100/10/5 Ml 5 Ml Syrup) 10 ml PO TID [facility] Last Admin: 06/12/22 10:44 Dose: Not Given Documented By: HELDER Non-Admin Reason: Patient Refused Lorazepam (Lorazepam 0.5 Mg Tablet) 0.5 mg PO Q6H PRN PRN Reason: Anxiety Methadone HCl (Methadone Hcl 10 Mg Tablet) 10 mg PO Q6H PRN PRN Reason: Pain, Severe (Pain Scale 7-10) Last Admin: 06/12/22 10:40 Dose: 10 mg Documented By: HELDER Omeprazole (Omeprazole 20 Mg Capsule.Dr) 20 mg PO DAILY@0630 [facility] Last Admin: 06/12/22 05:26 Dose: 20 mg Documented By: CHRISTIN Ondansetron HCl (Ondansetron Hcl 4 Mg/2 Ml Vial) 4 mg IVPUSH Q8H PRN PRN Reason: Nausea and Vomiting Last Admin: 06/12/22 04:08 Dose: 4 mg Documented By: CHRISTIN Paroxetine HCl (Paroxetine Hcl 10 Mg Tablet) 10 mg PO DAILY [facility] Last Admin: 06/12/22 10:40 Dose: 10 mg Documented By: HELDER Prednisone (Prednisone 20 Mg Tablet) 20 mg PO DAILY [facility] Last Admin: 06/12/22 10:43 Dose: 20 mg Documented By: HELDER Theophylline (Theophylline Anhydrous Er 400 Mg Tab.Er.24h) 200 mg PO BID [facility] Last Admin: 06/12/22 10:38 Dose: 200 mg Documented By: HELDER Tiotropium [place] (Tiotropium [place] 18 Mcg Cap.W.Dev) 1 puff INHALE RDAILY [facility] Last Admin: 06/12/22 08:15 Dose: 1 puff Documented By: ISIDRA Labs CBC & Chem 7: 06/11/22 12:55 06/11/22 12:55 Labs: Laboratory Results - last 24 hr 06/11/22 06/11/22 12:55 12:55 MCV 84.0 MCH 27.2 MCHC 32.4 RDW 15.9 Plt Count 62 L D MPV 8.9 L Immature Gran % (Auto) 0.4 Neut % (Auto) 93.4 H Lymph % (Auto) 4.2 L [place] % (Auto) 1.6 L Eos % (Auto) 0.3 Baso % (Auto) 0.1 Lymph # (Auto) 0.3 L [place] # (Auto) 0.1 Eos # (Auto) 0.0 Baso # (Auto) 0.0 Abs Immat Gran (auto) 0.03 Absolute Neuts (auto) 6.4 Absolute Nucleated RBC 0.000 Nucleated RBC % (auto) 0.0 Anion Gap 14 Estim Creat Clear Calc 93.4 Estimated GFR > 60 Random Glucose 165 H D Calcium 8.5 Magnesium 2.0 Assessment and Plan (1) COPD (chronic obstructive pulmonary disease): Status: Acute (2) Pneumonia: Status: Acute Plan 56yo M with COPD, chronic hypoxia on 4L O2, HCV, IDU + pulmonary nodules presenting with dyspnea + hypoxia, initially admitted to ICU on BiPAP, stepped- down to [facility] 05/25/22 Acute hypoxic respiratory failure secondary to COPD exacerbation and community- acquired pneumonia status post vancomycin, Zosyn, Augmentin and doxycycline Goal O2 saturation 88-92% baseline oxygen requirement 4 L Continue theophylline, Spiriva, Breo, prednisone 20 mg daily and updrafts Seen and evaluated by pulmonology Sinus tachycardia No other arrhythmias noted Likely secondary to multiple updraft treatments, anxiety Continue lorazepam as needed Thrombocytopenia secondary to pneumonia Follow CBC closely History of substance abuse Continue methadone DVT prophylaxis with mechanical compression boots 2nd attending Dr. Palmer Full code Disposition physical therapy recommends short-term rehab Continue hospitalization for treatment of transit hypoxia and safe discharge placement Time Spent With Patient Time: Total time managing care of this patient today ____ minutes. Quality Stroke Does the patient have a stroke diagnosis?: No VTE Prior VTE?: No VTE Risk Level:: Medical - moderate - high VTE Device Contraindication: Treatment Not Indicated VTE Drug Contraindication: N/A - Med Ordered
--- NOTE | 2022-06-12 15:22 | MHC.CM.PN ---
per rounds pt waitng a bed at [facility] ,pt will esa go home with a vna that can deliver metjhadone
--- NOTE | 2022-06-12 15:37 | MHC.RECOVRN ---
Briefly met with pt in 468 to discuss methadone dose and plan. Pt had been receiving 40 mg methadone daily prior to hospitalization. When admitted, pt was ordered 10 mg q6 hours prn. Over the last few days pt has received 20 mg total daily. Pt would like to have order changed to once daily dosing. Pt aware it may not be restarted at 40 mg, is agreeable to what the provider decides. Pt informed Maisha Jamison NP, will meet with pt tomorrow to further discuss and order appropriately. Pt expressed concern regarding getting to the [facility] after discharge and is interested in VNA/methadone delivery. CM was notified of this. Denies other questions or concerns.
[2022-06-12] MEDS: LORazepam 0.5 MG TABLET PO (16:52)
[2022-06-13] VITALS (9 sets, daily range): BP systolic 114–123; BP diastolic 66–78; PULSE 71–117; RESP 16–20; TEMP 36.3–36.8; O2SAT 92–96; BMI 15.0
[2022-06-13] MEDS: ondansetron HCL 4 MG/2 ML VIAL IVPUSH (01:26)
[2022-06-13] MEDS: Prochlorperazine Edisylate 10 MG/2 ML VIAL 5 MG IVPUSH (05:18)
[2022-06-13] MEDS: methADONE HCl 10 MG TABLET PO (06:18)
[2022-06-13] MEDS: Omeprazole 20 MG CAPSULE.DR PO (06:18)
[2022-06-13] MEDS: Albuterol/Iprat 2.5/0.5MG 3 ML AMPUL.NEB INHALE ×4 (08:20→20:37)
[2022-06-13] MEDS: Fluticasone/Vilanterol 200/25 BLST.W.DEV 1 PUFF INHALE (08:20)
[2022-06-13] MEDS: predniSONE 20 MG TABLET PO (08:29)
[2022-06-13] MEDS: Theophylline Anhydrous ER 400 MG TAB.ER.24H 200 MG PO ×2 (08:29→20:00)
[2022-06-13] MEDS: PARoxetine HCL 10 MG TABLET PO (08:30)
[2022-06-13] MEDS: Magnesium Hydrox/Alum Hydrox 30 ML ORAL.SUSP 15 ML PO (08:40)
--- NOTE | 2022-06-13 13:24 | P.PNIM_ITS ---
Subjective Subjective Date of Service: 06/13/22 Interval History: Seen in follow up for acute on chronic hypoxic respiratory failure, COPD exacerbation, and pneumonia Physical Exam Vital Signs: Vital Signs: Last Vital Signs Temp 98.3 F 06/13/22 11:24 Pulse 71 06/13/22 11:59 Resp 18 06/13/22 11:59 BP 114/66 06/13/22 11:24 Pulse Ox 93 06/13/22 11:24 O2 Del Method 06/13/22 11:24 O2 Flow Rate 2 06/13/22 11:24 FiO2 45 06/07/22 19:41 Oxygen Flow Rate 70 05/23/22 21:38 BMI result Body Mass Index 15.0 Appearing in no acute distress head is normocephalic atraumatic eyes pupils are PERRLA sclera is anicteric mouth throat mucous membranes are intact and moist neck is supple no lymphadenopathy, no JVD noted lung sounds are clear to auscultation heart regular rate rhythm, clear S1, S2 positive bowel sounds, abdomen is soft, nontender neuro patient is alert x3, no focal deficits Objective Data Active Medications Al Hydroxide/Mg Hydroxide (Magnesium Hydrox/Alum Hydrox 30 Ml Oral.Susp) 15 ml PO Q4H PRN PRN Reason: heartburn Last Admin: 06/13/22 08:40 Dose: 15 ml Documented By: GILBERTO Albuterol Sulfate (Albuterol Sulfate (0.083%) 2.5 Mg/3 Ml Vial.Neb) 2.5 mg INHALE Q2H PRN PRN Reason: Shortness of Breath/Wheezing Albuterol/Ipratropium (Albuterol/Iprat 2.5/0.5mg 3 Ml Ampul.Neb) 3 ml INHALE RQ4H WHILE AWAKE [facility] Last Admin: 06/13/22 11:59 Dose: 3 ml Documented By: ABELARDO Fluticasone/Vilanterol (Fluticasone/Vilanterol 200/25 Blst.W.Dev) 1 puff INHALE RDAILY [facility] Last Admin: 06/13/22 08:20 Dose: 1 puff Documented By: ABELARDO Guaifenesin/Dextromethorphan (Guaifenesin Dm 100/10/5 Ml 5 Ml Syrup) 10 ml PO TID [facility] Last Admin: 06/13/22 08:51 Dose: Not Given Documented By: GILBERTO Non-Admin Reason: Patient Refused Lorazepam (Lorazepam 0.5 Mg Tablet) 0.5 mg PO Q6H PRN PRN Reason: Anxiety Last Admin: 06/12/22 16:52 Dose: 0.5 mg Documented By: HELDER Methadone HCl (Methadone Hcl 20 Mg/2 Ml Oral.Conc) 30 mg PO DAILY [facility] Omeprazole (Omeprazole 20 Mg Capsule.Dr) 20 mg PO DAILY@0630 [facility] Last Admin: 06/13/22 06:18 Dose: 20 mg Documented By: GRACE Ondansetron HCl (Ondansetron Hcl 4 Mg/2 Ml Vial) 4 mg IVPUSH Q8H PRN PRN Reason: Nausea and Vomiting Last Admin: 06/13/22 01:26 Dose: 4 mg Documented By: GRACE Paroxetine HCl (Paroxetine Hcl 10 Mg Tablet) 10 mg PO DAILY [facility] Last Admin: 06/13/22 08:30 Dose: 10 mg Documented By: GILBERTO Prednisone (Prednisone 20 Mg Tablet) 20 mg PO DAILY [facility] Last Admin: 06/13/22 08:29 Dose: 20 mg Documented By: GILBERTO Theophylline (Theophylline Anhydrous Er 400 Mg Tab.Er.24h) 200 mg PO BID [facility] Last Admin: 06/13/22 08:29 Dose: 200 mg Documented By: GILBERTO Tiotropium [place] (Tiotropium [place] 18 Mcg Cap.W.Dev) 1 puff INHALE RDAILY [facility] Last Admin: 06/13/22 08:20 Dose: 1 puff Documented By: ABELARDO Labs CBC & Chem 7: 06/11/22 12:55 06/11/22 12:55 Assessment and Plan (1) COPD (chronic obstructive pulmonary disease): Status: Acute (2) Pneumonia: Status: Acute Plan 56yo M with COPD, chronic hypoxia on 4L O2, HCV, IDU + pulmonary nodules presenting with dyspnea + hypoxia, initially admitted to ICU on BiPAP, stepped- down to [facility] [place] 05/25/22 Acute hypoxic respiratory failure secondary to COPD exacerbation and community- acquired pneumonia status post vancomycin, Zosyn, Augmentin and doxycycline Goal O2 saturation 88-92% baseline oxygen requirement 4 L Continue theophylline, Spiriva, Breo, prednisone 20 mg daily and updrafts Seen and evaluated by pulmonology Sinus tachycardia No other arrhythmias noted Likely secondary to multiple updraft treatments, anxiety Continue lorazepam as needed Thrombocytopenia secondary to pneumonia Follow CBC closely History of substance abuse Continue methadone DVT prophylaxis with mechanical compression boots attending Dr. Palmer Full code Disposition physical therapy recommends short-term rehab. OOB to chair daily Continue hospitalization for treatment of transient hypoxia and safe discharge placement Time Spent With Patient Time: Total time managing care of this patient today ____ minutes. Quality Stroke Does the patient have a stroke diagnosis?: No VTE Prior VTE?: No VTE Risk Level:: Medical - moderate - high VTE Device Contraindication: Treatment Not Indicated VTE Drug Contraindication: N/A - Med Ordered
--- NOTE | 2022-06-13 13:38 | MHC.CM.PN ---
[facility] has indicated that they should have a bed opening tomorrow. CM will follow.
[2022-06-13] MEDS: oxyCODONE HCl Immed Release 5 MG TABLET PO (14:24)
[2022-06-13] MEDS: methADONE HCl 20 MG/2 ML ORAL.CONC PO (15:37)
[2022-06-13] MEDS: guaiFENesin DM 100/10/5 ML 5 ML SYRUP 10 ML PO (20:00)
[2022-06-14] VITALS (12 sets, daily range): BP systolic 95–128; BP diastolic 60–86; PULSE 90–115; RESP 12–18; TEMP 36.3–37.3; O2SAT 91–99
[2022-06-14] MEDS: oxyCODONE HCl Immed Release 5 MG TABLET PO ×4 (02:56→20:49)
[2022-06-14] MEDS: Omeprazole 20 MG CAPSULE.DR PO (05:32)
[2022-06-14] MEDS: PARoxetine HCL 10 MG TABLET PO (07:58)
[2022-06-14] MEDS: methADONE HCl 20 MG/2 ML ORAL.CONC 30 MG PO (07:59)
[2022-06-14] MEDS: predniSONE 20 MG TABLET PO (07:59)
[2022-06-14] MEDS: Theophylline Anhydrous ER 400 MG TAB.ER.24H 200 MG PO ×2 (07:59→20:47)
[2022-06-14] MEDS: Albuterol/Iprat 2.5/0.5MG 3 ML AMPUL.NEB INHALE ×4 (08:22→20:38)
[2022-06-14] MEDS: Fluticasone/Vilanterol 200/25 BLST.W.DEV 1 PUFF INHALE (08:22)
--- NOTE | 2022-06-14 09:35 | MHC.CLN ---
F/U PO INTAKE 75-100% DIET RX: REGULAR-APPROPRIATE PT RECEIVING ENSURE BID TO INCREASE KCALS PROVIDES 700KCALS, 40G PROTEIN CONTINUE TO MONITOR PO INTAKE CLOSELY
--- NOTE | 2022-06-14 11:31 | MHC.CM.PN ---
CM continues to await bed availability at [facility]); CM will follow.
--- NOTE | 2022-06-14 12:29 | PM.DS ---
DS: Providers Provider Date of Service: 06/14/22 Date of admission: 05/23/22 23:41 Primary care physician: Unknown Physician Consults: 06/01/22 10:49 Consult to Pulmonology Routine Consulting Provider: Jose Angel Pederson Reason for consultation: recurrent hypoxia. PE ruled out. PNA. COPD Attending physician on discharge: Reji Palmer Discharging clinician: Isabella Mathias DS: Diagnosis Discharge Diagnosis (1) COPD (chronic obstructive pulmonary disease): Status: Acute (2) Pneumonia: Status: Acute DS: Summary Hospital Course Hospital Course: History and physical as per admitting provider Patient is a 56-year-old male with a past medical history of? oxygen-dependent COPD( 4 L baseline),? hepatitis-C,? IV drug and pulmonary nodules who presented to the emergency room? via ambulance with complaints of shortness of breath. ? EMS reported? patient stated he was short of breath in the last couple days, today was trying to give himself neb treatment but was unable,? patient was noted to be off nasal cannula,? satting 60% on room air.? On arrival to the emergency room patient was satting 65% on 4 L,? 70% on a non-rebreather,? required initiation of BiPAP. Laboratory data? significant for WBC 20.4, D-dimer 365, chloride 86, serum bicarb 42, BUN 37, lactic acid 2.4, BMP 200, albumin 3 VBGs:? 7./ IMAGING:?Chest CTA-? no evidence of? pulmonary embolism,? bilateral pneumonia greater on the left than right.?ED course: received mag sulfate 1 g, Solu-Medrol 125, Zosyn 4.5 , 1 L? normal saline,? and albuterol 10 mg.?Will be admitted to ICU for management of acute respiratory failure? likely from pneumonia Acute hypoxic respiratory failure secondary to COPD exacerbation and community-acquired pneumonia status post vancomycin, Zosyn,?Augmentin and doxycycline Goal O2 saturation 88-92% baseline oxygen requirement 4 L Continue theophylline, Spiriva, Breo, prednisone 20 mg daily and updrafts Seen and evaluated by pulmonology, schedule 1 week appointment for follow-up of new medications and further management of prednisone Sinus tachycardia No other arrhythmias noted Likely secondary to multiple updraft treatments, anxiety Thrombocytopenia secondary to pneumonia History of substance abuse Continue methadone last dose 06/14/22 Time Spent with Patient Time attestation: Total time managing care of this patient today ____ minutes. Physical Exam Vital Signs: Vital Signs: Last Vital Signs Temp 98.3 F 06/14/22 11:39 Pulse 95 06/14/22 12:02 Resp 17 06/14/22 12:02 BP 113/72 06/14/22 11:39 Pulse Ox 95 06/14/22 11:39 O2 Del Method 06/14/22 11:39 O2 Flow Rate 2 06/14/22 11:39 FiO2 45 06/07/22 19:41 Oxygen Flow Rate 70 05/23/22 21:38 BMI result Body Mass Index 15.0 Appearing in no acute distress, thin and frail head is normocephalic atraumatic eyes pupils are PERRLA sclera is anicteric mouth throat mucous membranes are intact and moist neck is supple no lymphadenopathy, no JVD noted lung sounds are clear to auscultation heart regular rate rhythm, clear S1, S2 positive bowel sounds, abdomen is soft, nontender neuro patient is alert x3, no focal deficits DS: Data Data Completed and Pending Completed studies during hospitalization [Text1]: Procedures Reposition Right Upper Femur with Internal Fixation Device, Percutaneous Approach (10/22/21) Transfusion of Nonautologous Platelets into Peripheral Vein, Percutaneous Approach (10/22/21) Discharge Plan Discharge Anticipated Discharge Date/Time: 06/14/22 12:23 Patient Disposition: Xfer Inpatient Rehab Fac Discharge Diagnosis: Acute hypoxic respiratory failure COPD exacerbation Community-acquired pneumonia Sinus tachycardia Thrombocytopenia Referrals: Jose Angel Pederson MD [Physician] - 1 Week Discharge Medications: New theophylline 400 mg Tablet Extended Release 24 Hr 200 mg PO BID Qty: 30 0RF prednisone 20 mg Tablet 20 mg PO DAILY Qty: 14 0RF fluticasone furoate-vilanterol [Breo Ellipta] 200-25 mcg/dose Blister With Device 1 ea inhalation RDAILY Qty: 60 0RF Continued Anoro Ellipta 62.5-25 mcg/actuation blister with device 1 puff inhalation DAILY albuterol sulfate 2.5 mg /3 mL (0.083 %) solution for nebulization 1 amp inhalation Q4H PRN (Reason: wheezing) albuterol sulfate [ProAir HFA] 90 mcg/actuation Hfa Aerosol Inhaler 2 puff INHALATION Q6H PRN (Reason: Respiratory Distress) methadone 10 mg/mL Concentrate 40 mg PO DAILY ferrous sulfate [iron] 325 mg (65 mg iron) tablet 325 mg PO BID Qty: 60 0RF paroxetine HCl 10 mg tablet 1 tab PO DAILY pantoprazole 40 mg tablet,delayed release (DR/EC) 40 mg PO DAILY Diet: Advance to usual diet Activity on Discharge: As tolerated Stand Alone Forms: Patient Portal Discharge page Other Ambulatory Orders: Theophylline (Routine) Timeframe: 1 Week Facility: [facility] - Location: Laboratory Ordered By: Isabella Mathias Care Plan Goals: Complete resolution of symptoms Health Concerns: Acute hypoxic respiratory failure COPD exacerbation Community-acquired pneumonia Sinus tachycardia Thrombocytopenia Plan of Treatment: Follow-up with primary care provider once discharged from rehab Take all medications as prescribed Please schedule an appointment with the senior sharepoint architect within [address] week, [address] Pederson, for follow-up of new medications including prednisone which has been prescribed for 14 days Assessment: See discharge summary
--- NOTE | 2022-06-14 14:53 | HO.PM.IMPN ---
Subjective Subjective Date of Service: 06/14/22 Interval History: Seen in follow up for acute on chronic hypoxic respiratory failure, COPD exacerbation, and pneumonia OOB to chair Physical Exam Vital Signs: Vital Signs: Last Vital Signs Temp 98.3 F 06/14/22 11:39 Pulse 110 H 06/14/22 13:03 Resp 17 06/14/22 12:02 BP 113/72 06/14/22 11:39 Pulse Ox 92 06/14/22 13:03 O2 Del Method 06/14/22 11:39 O2 Flow Rate 2 06/14/22 11:39 FiO2 45 06/07/22 19:41 Oxygen Flow Rate 70 05/23/22 21:38 BMI result Body Mass Index 15.0 Appearing in no acute distress, thins and frail lung sounds are clear to auscultation heart regular rate rhythm, clear S1, S2 positive bowel sounds, abdomen is soft, nontender neuro patient is alert x3, no focal deficits Objective Data Active Medications Al Hydroxide/Mg Hydroxide (Magnesium Hydrox/Alum Hydrox 30 Ml Oral.Susp) 15 ml PO Q4H PRN PRN Reason: heartburn Last Admin: 06/13/22 08:40 Dose: 15 ml Documented By: GILBERTO Albuterol Sulfate (Albuterol Sulfate (0.083%) 2.5 Mg/3 Ml Vial.Neb) 2.5 mg INHALE Q2H PRN PRN Reason: Shortness of Breath/Wheezing Albuterol/Ipratropium (Albuterol/Iprat 2.5/0.5mg 3 Ml Ampul.Neb) 3 ml INHALE RQ4H WHILE AWAKE [facility] Last Admin: 06/14/22 12:01 Dose: 3 ml Documented By: ABELARDO Fluticasone/Vilanterol (Fluticasone/Vilanterol 200/25 Blst.W.Dev) 1 puff INHALE RDAILY [facility] Last Admin: 06/14/22 08:22 Dose: 1 puff Documented By: ABELARDO Guaifenesin/Dextromethorphan (Guaifenesin Dm 100/10/5 Ml 5 Ml Syrup) 10 ml PO TID [facility] Last Admin: 06/14/22 07:59 Dose: Not Given Documented By: CATARINO Non-Admin Reason: Patient Refused Lorazepam (Lorazepam 0.5 Mg Tablet) 0.5 mg PO Q6H PRN PRN Reason: Anxiety Last Admin: 06/12/22 16:52 Dose: 0.5 mg Documented By: HELDER Methadone HCl (Methadone Hcl 20 Mg/2 Ml Oral.Conc) 30 mg PO DAILY [facility] Last Admin: 06/14/22 07:59 Dose: 30 mg Documented By: CATARINO Omeprazole (Omeprazole 20 Mg Capsule.Dr) 20 mg PO DAILY@0630 [facility] Last Admin: 06/14/22 05:32 Dose: 20 mg Documented By: JACKELYN Ondansetron HCl (Ondansetron Hcl 4 Mg/2 Ml Vial) 4 mg IVPUSH Q8H PRN PRN Reason: Nausea and Vomiting Last Admin: 06/13/22 01:26 Dose: 4 mg Documented By: GRACE Oxycodone HCl (Oxycodone Hcl Immed Release 5 Mg Tablet) 5 mg PO Q4H PRN PRN Reason: Pain, Mild (Pain Scale 1-3) Last Admin: 06/14/22 07:57 Dose: 5 mg Documented By: CATARINO Paroxetine HCl (Paroxetine Hcl 10 Mg Tablet) 10 mg PO DAILY [facility] Last Admin: 06/14/22 07:58 Dose: 10 mg Documented By: CATARINO Prednisone (Prednisone 20 Mg Tablet) 20 mg PO DAILY [facility] Last Admin: 06/14/22 07:59 Dose: 20 mg Documented By: CATARINO Theophylline (Theophylline Anhydrous Er 400 Mg Tab.Er.24h) 200 mg PO BID [facility] Last Admin: 06/14/22 07:59 Dose: 200 mg Documented By: CATARINO Tiotropium [place] (Tiotropium [place] 18 Mcg Cap.W.Dev) 1 puff INHALE RDAILY [facility] Last Admin: 06/14/22 08:22 Dose: 1 puff Documented By: ABELARDO Labs CBC & Chem 7: 06/11/22 12:55 06/11/22 12:55 Assessment and Plan (1) COPD (chronic obstructive pulmonary disease): Status: Acute (2) Pneumonia: Status: Acute Plan 56yo M with COPD, chronic hypoxia on 4L O2, HCV, IDU + pulmonary nodules presenting with dyspnea + hypoxia, initially admitted to ICU on BiPAP, stepped-down to [facility] 05/25/22 Acute hypoxic respiratory failure secondary to COPD exacerbation and community-acquired pneumonia status post vancomycin, Zosyn, Augmentin and doxycycline Goal O2 saturation 88-92% baseline oxygen requirement 4 L Continue theophylline, Spiriva, Breo, prednisone 20 mg daily and updrafts Seen and evaluated by pulmonology Sinus tachycardia No other arrhythmias noted Likely secondary to multiple updraft treatments, anxiety Continue lorazepam as needed Thrombocytopenia secondary to pneumonia Follow CBC closely History of substance abuse Continue methadone DVT prophylaxis with mechanical compression boots attending Dr. Palmer Full code Disposition physical therapy recommends short-term rehab. OOB to chair daily Continue hospitalization for treatment of transient hypoxia and safe discharge placement Time Spent With Patient Time: Total time managing care of this patient today ____ minutes. Quality Stroke Does the patient have a stroke diagnosis?: No VTE Prior VTE?: No VTE Risk Level:: Medical - moderate - high VTE Device Contraindication: Treatment Not Indicated VTE Drug Contraindication: N/A - Med Ordered
[2022-06-14] MEDS: ondansetron HCL 4 MG/2 ML VIAL IVPUSH (17:21)
[2022-06-14] MEDS: LORazepam 0.5 MG TABLET PO (17:29)
[2022-06-15] VITALS (9 sets, daily range): BP systolic 112–129; BP diastolic 66–83; PULSE 100–118; RESP 16–22; TEMP 36.7–37.3; O2SAT 92–96; BMI 15.5
[2022-06-15] MEDS: oxyCODONE HCl Immed Release 5 MG TABLET PO ×5 (00:35→21:13)
[2022-06-15] MEDS: Magnesium Hydrox/Alum Hydrox 30 ML ORAL.SUSP 15 ML PO (00:52)
[2022-06-15] MEDS: ondansetron HCL 4 MG/2 ML VIAL IVPUSH ×2 (03:09→21:13)
[2022-06-15] MEDS: Omeprazole 20 MG CAPSULE.DR PO (05:54)
[2022-06-15] MEDS: Albuterol/Iprat 2.5/0.5MG 3 ML AMPUL.NEB INHALE ×4 (07:47→19:35)
[2022-06-15] MEDS: Fluticasone/Vilanterol 200/25 BLST.W.DEV 1 PUFF INHALE (07:50)
[2022-06-15] MEDS: PARoxetine HCL 10 MG TABLET PO (09:26)
[2022-06-15] MEDS: predniSONE 20 MG TABLET PO (09:26)
[2022-06-15] MEDS: guaiFENesin DM 100/10/5 ML 5 ML SYRUP 10 ML PO (09:26)
[2022-06-15] MEDS: LORazepam 0.5 MG TABLET PO (09:26)
[2022-06-15] MEDS: Theophylline Anhydrous ER 400 MG TAB.ER.24H 200 MG PO ×2 (09:27→21:13)
[2022-06-15] MEDS: methADONE HCl 20 MG/2 ML ORAL.CONC 30 MG PO (09:27)
--- NOTE | 2022-06-15 09:46 | MHC.CM.PN ---
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
--- NOTE | 2022-06-15 11:29 | MHC.CM.PN ---
Per ONI/Ivana's request, CM contacted Patient's family (sister/Aurea @ listed phone #) to confirm Patient's living situation because Patient wants to go home, rather than the recommended STR. Per Aurea, Patient lives with his 95 year old Father with Dementia, his 2 Brothers and a Sister, all of whom spend much of their time caring for their father. Also, Patient is working on getting a SALES EXECUTIVE INSURANCE; he does not yet have one. CM has relayed this information to ONI and CM will follow.
--- NOTE | 2022-06-15 12:23 | MHC.CM.PN ---
Per HAND DRAWER IN/Ivana, CM will continue to work toward dc to SNF; [facility] does not have a bed today and d/t Patient's Methadone r/t his Drug history, [facility] is the only SNF option in this area. CM will follow.
--- NOTE | 2022-06-15 16:43 | HO.PM.IMPN ---
Subjective Subjective Date of Service: 06/15/22 Interval History: seen and examined this morning follow up for copd exacerbation/pneumonia feeling ok today, no change in respiratory status Review of Systems Review of Systems: Yes all other systems are reviewed and are negative Constitutional Constitutional: Denies chills and Denies fever(s) Cardiovascular Cardiovascular: Denies chest pain and Denies palpitations Respiratory Respiratory: Denies cough Gastrointestinal Gastrointestinal: Denies abdominal pain, Denies nausea and Denies vomiting Endocrine Endocrine: Denies palpitations Physical Exam Vital Signs: Vital Signs: Last Vital Signs Temp 99.0 F 06/15/22 16:00 Pulse 110 H 06/15/22 16:00 Resp 19 06/15/22 16:00 BP 122/72 06/15/22 16:00 Pulse Ox 96 06/15/22 16:00 O2 Del Method 06/15/22 16:00 O2 Flow Rate 2 06/15/22 16:00 FiO2 45 06/07/22 19:41 Oxygen Flow Rate 70 05/23/22 21:38 BMI result Body Mass Index 15.5 Const: General: comfortable, no acute distress and alert Nutritional Appearance: thin Resp: Effort & Inspection: normal respiratory effort, able to speak in complete sentences, no respiratory distress and no use of accessory muscles Cardio: Rate: regular rate Heart sounds: S1 normal heart sound present and S2 normal heart sound present GI: Inspection: No distended Palpation (GI): Soft to palpation Neuro: Other: grossly nonfocal Extrem: General: Yes no pedal edema Objective Data Active Medications Al Hydroxide/Mg Hydroxide (Magnesium Hydrox/Alum Hydrox 30 Ml Oral.Susp) 15 ml PO Q4H PRN PRN Reason: heartburn Last Admin: 06/15/22 00:52 Dose: 15 ml Documented By: HAIDER Albuterol Sulfate (Albuterol Sulfate (0.083%) 2.5 Mg/3 Ml Vial.Neb) 2.5 mg INHALE Q2H PRN PRN Reason: Shortness of Breath/Wheezing Albuterol/Ipratropium (Albuterol/Iprat 2.5/0.5mg 3 Ml Ampul.Neb) 3 ml INHALE RQ4H WHILE AWAKE [facility] Last Admin: 06/15/22 15:30 Dose: 3 ml Documented By: TRI Fluticasone/Vilanterol (Fluticasone/Vilanterol 200/25 Blst.W.Dev) 1 puff INHALE RDAILY [facility] Last Admin: 06/15/22 07:50 Dose: 1 puff Documented By: TRI Guaifenesin/Dextromethorphan (Guaifenesin Dm 100/10/5 Ml 5 Ml Syrup) 10 ml PO TID [facility] Last Admin: 06/15/22 15:08 Dose: Not Given Documented By: ADRIA Non-Admin Reason: Patient Refused Lorazepam (Lorazepam 0.5 Mg Tablet) 0.5 mg PO Q6H PRN PRN Reason: Anxiety Last Admin: 06/15/22 09:26 Dose: 0.5 mg Documented By: ADRIA Methadone HCl (Methadone Hcl 20 Mg/2 Ml Oral.Conc) 30 mg PO DAILY [facility] Last Admin: 06/15/22 09:27 Dose: 30 mg Documented By: ADRIA Omeprazole (Omeprazole 20 Mg Capsule.Dr) 20 mg PO DAILY@0630 [facility] Last Admin: 06/15/22 05:54 Dose: 20 mg Documented By: HAIDER Ondansetron HCl (Ondansetron Hcl 4 Mg/2 Ml Vial) 4 mg IVPUSH Q8H PRN PRN Reason: Nausea and Vomiting Last Admin: 06/15/22 03:09 Dose: 4 mg Documented By: HAIDER Oxycodone HCl (Oxycodone Hcl Immed Release 5 Mg Tablet) 5 mg PO Q4H PRN PRN Reason: Pain, Mild (Pain Scale 1-3) Last Admin: 06/15/22 16:39 Dose: 5 mg Documented By: ADRIA Paroxetine HCl (Paroxetine Hcl 10 Mg Tablet) 10 mg PO DAILY [facility] Last Admin: 06/15/22 09:26 Dose: 10 mg Documented By: ADRIA Prednisone (Prednisone 20 Mg Tablet) 20 mg PO DAILY [facility] Last Admin: 06/15/22 09:26 Dose: 20 mg Documented By: ADRIA Theophylline (Theophylline Anhydrous Er 400 Mg Tab.Er.24h) 200 mg PO BID [facility] Last Admin: 06/15/22 09:27 Dose: 200 mg Documented By: ADRIA Tiotropium [place] (Tiotropium [place] 18 Mcg Cap.W.Dev) 1 puff INHALE MELISSA [facility] Last Admin: 06/15/22 07:50 Dose: 1 puff Documented By: TRI Labs CBC & Chem 7: 06/11/22 12:55 06/11/22 12:55 Assessment and Plan (1) COPD (chronic obstructive pulmonary disease): Status: Acute (2) Pneumonia: Status: Acute Plan 56yo M with COPD, chronic hypoxia on 4L O2, HCV, IDU + pulmonary nodules presenting with dyspnea + hypoxia, initially admitted to ICU on BiPAP, stepped-down to [facility] 05/25/22 Acute hypoxic respiratory failure secondary to COPD exacerbation and community-acquired pneumonia status post vancomycin, Zosyn, Augmentin and doxycycline Goal O2 saturation 88-92% baseline oxygen requirement 4 L, currently on 2L Continue theophylline, Spiriva, Breo, prednisone 20 mg daily and updrafts Seen and evaluated by pulmonology Sinus tachycardia No other arrhythmias noted Likely secondary to multiple updraft treatments, anxiety Continue lorazepam as needed Thrombocytopenia secondary to pneumonia Follow CBC closely History of substance abuse Continue methadone DVT prophylaxis with mechanical compression boots attending Dr. Palmer Full code Disposition physical therapy recommends short-term rehab. OOB to chair daily Continue hospitalization for treatment of transient hypoxia and safe discharge placement Time Spent With Patient Time: Total time managing care of this patient today ____ minutes. Quality Stroke Does the patient have a stroke diagnosis?: No VTE Prior VTE?: No VTE Risk Level:: Medical - moderate - high VTE Device Contraindication: Treatment Not Indicated VTE Drug Contraindication: N/A - Med Ordered
[2022-06-16] VITALS (9 sets, daily range): BP systolic 114–147; BP diastolic 74–86; PULSE 98–117; RESP 15–20; TEMP 36.2–37; O2SAT 93–100; BMI 15.0
--- NOTE | 2022-06-16 | ECG_ITS ---
Test Reason : tachycardia Blood Pressure : / mmHG Vent. Rate : 104 BPM Atrial Rate : 104 BPM P-R Int : 112 ms QRS Dur : 074 ms QT Int : 316 ms P-R-T Axes : 066 063 067 degrees QTc Int : 415 ms Sinus tachycardia Otherwise normal ECG When compared with ECG of 11-JUN-2022 12:56, No significant change was found Referred By: Ivana Del Castillo Electronically Signed By:Addison Zheng
[2022-06-16] MEDS: oxyCODONE HCl Immed Release 5 MG TABLET PO ×4 (03:19→21:59)
[2022-06-16] MEDS: ondansetron HCL 4 MG/2 ML VIAL IVPUSH ×2 (05:50→16:45)
[2022-06-16] MEDS: Omeprazole 20 MG CAPSULE.DR PO (05:50)
[2022-06-16] MEDS: Albuterol/Iprat 2.5/0.5MG 3 ML AMPUL.NEB INHALE (07:43)
[2022-06-16] MEDS: Fluticasone/Vilanterol 200/25 BLST.W.DEV 1 PUFF INHALE (07:43)
[2022-06-16] MEDS: Magnesium Hydrox/Alum Hydrox 30 ML ORAL.SUSP 15 ML PO (09:01)
[2022-06-16] MEDS: Theophylline Anhydrous ER 400 MG TAB.ER.24H 200 MG PO ×2 (09:01→21:55)
[2022-06-16] MEDS: PARoxetine HCL 10 MG TABLET PO (09:01)
[2022-06-16] MEDS: methADONE HCl 20 MG/2 ML ORAL.CONC 30 MG PO (09:01)
[2022-06-16] MEDS: predniSONE 1 MG TABLET PO (09:09)
--- NOTE | 2022-06-16 11:03 | MHC.CLN ---
F/U PO INTAKE 75-100% DIET RX: REGULAR-APPROPRIATE PT RECEIVING ENSURE BID TO INCREASE KCALS PROVIDES 700KCALS, 40G PROTEIN CONTINUE TO MONITOR PO INTAKE CLOSELY
--- NOTE | 2022-06-16 11:44 | MHC.CM.PN ---
CM continues to wait for bed availability at [facility], who can accommodate Patient's Methadone.
[2022-06-16] MEDS: predniSONE 10 MG TABLET PO (12:12)
--- NOTE | 2022-06-16 14:23 | MHC.CM.PN ---
Per Ari, PT is now recommending home with PT (referrals made).Patient may be ready for dc to home tomorrow, likely via BLS. PCP is from [facility]. CM will follow.
--- NOTE | 2022-06-16 15:44 | MHC.CM.PN ---
Patient has his first appointment with a PCP at [facility] on 07/04/2022 so if dc to home before that date, he will not qualify for VNA; ELY has relayed this information to Ari.
--- NOTE | 2022-06-16 15:57 | HO.PM.IMPN ---
Subjective Subjective Date of Service: 06/16/22 Interval History: seen and examined this morning follow up for copd denies sob, cough Review of Systems Review of Systems: Yes all other systems are reviewed and are negative Constitutional Constitutional: Denies chills and Denies fever(s) Cardiovascular Cardiovascular: Denies chest pain, Denies palpitations and Denies dyspnea Respiratory Respiratory: Denies cough and Denies dyspnea Gastrointestinal Gastrointestinal: Denies abdominal pain and Denies vomiting Endocrine Endocrine: Denies palpitations Physical Exam Vital Signs: Vital Signs: Last Vital Signs Temp 97.4 F 06/16/22 15:34 Pulse 117 H 06/16/22 15:34 Resp 16 06/16/22 15:34 BP 125/86 06/16/22 15:34 Pulse Ox 97 06/16/22 15:34 O2 Del Method 06/16/22 15:34 O2 Flow Rate 4 06/16/22 15:34 FiO2 45 06/07/22 19:41 Oxygen Flow Rate 70 05/23/22 21:38 BMI result Body Mass Index 15.0 Const: General: cooperative, comfortable, alert and awake Nutritional Appearance: thin Resp: Effort & Inspection: normal respiratory effort, able to speak in complete sentences, no respiratory distress and no use of accessory muscles Cardio: Rate: regular rate Heart sounds: S1 normal heart sound present and S2 normal heart sound present GI: Inspection: No distended Palpation (GI): Soft to palpation Neuro: Other: grossly nonfocal Extrem: General: Yes no pedal edema Objective Data Active Medications Al Hydroxide/Mg Hydroxide (Magnesium Hydrox/Alum Hydrox 30 Ml Oral.Susp) 15 ml PO Q4H PRN PRN Reason: heartburn Last Admin: 06/16/22 09:01 Dose: 15 ml Documented By: GILBERTO Fluticasone/Vilanterol (Fluticasone/Vilanterol 200/25 Blst.W.Dev) 1 puff INHALE RDAILY [facility] Last Admin: 06/16/22 07:43 Dose: 1 puff Documented By: OBED Guaifenesin/Dextromethorphan (Guaifenesin Dm 100/10/5 Ml 5 Ml Syrup) 10 ml PO TID [facility] Last Admin: 06/16/22 14:11 Dose: Not Given Documented By: GILBERTO Non-Admin Reason: Patient Refused Levalbuterol HCl (Levalbuterol Hcl 1.25 Mg/0.5 Ml Vial.Neb) 1.25 mg INHALE RQ4H WHILE AWAKE [facility] Last Admin: 06/16/22 15:26 Dose: 1.25 mg Documented By: TRI Levalbuterol HCl (Levalbuterol Hcl 1.25 Mg/0.5 Ml Vial.Neb) 1.25 mg INHALE Q4H PRN PRN Reason: Shortness of Breath Methadone HCl (Methadone Hcl 20 Mg/2 Ml Oral.Conc) 30 mg PO DAILY [facility] Last Admin: 06/16/22 09:01 Dose: 30 mg Documented By: GILBERTO Omeprazole (Omeprazole 20 Mg Capsule.Dr) 20 mg PO DAILY@0630 [facility] Last Admin: 06/16/22 05:50 Dose: 20 mg Documented By: ROSEMARY Ondansetron HCl (Ondansetron Hcl 4 Mg/2 Ml Vial) 4 mg IVPUSH Q8H PRN PRN Reason: Nausea and Vomiting Last Admin: 06/16/22 05:50 Dose: 4 mg Documented By: ROSEMARY Oxycodone HCl (Oxycodone Hcl Immed Release 5 Mg Tablet) 5 mg PO Q4H PRN PRN Reason: Pain, Mild (Pain Scale 1-3) Last Admin: 06/16/22 14:23 Dose: 5 mg Documented By: GILBERTO Paroxetine HCl (Paroxetine Hcl 10 Mg Tablet) 10 mg PO DAILY [facility] Last Admin: 06/16/22 09:01 Dose: 10 mg Documented By: GILBERTO Prednisone (Prednisone 10 Mg Tablet) 10 mg PO DAILY [facility] Last Admin: 06/16/22 12:12 Dose: 10 mg Documented By: GILBERTO Theophylline (Theophylline Anhydrous Er 400 Mg Tab.Er.24h) 200 mg PO BID [facility] Last Admin: 06/16/22 09:01 Dose: 200 mg Documented By: GILBERTO Tiotropium [place] (Tiotropium [place] 18 Mcg Cap.W.Dev) 1 puff INHALE RDAILY [facility] Last Admin: 06/16/22 07:43 Dose: 1 puff Documented By: OBED Labs CBC & Chem 7: 06/11/22 12:55 06/11/22 12:55 Assessment and Plan (1) COPD (chronic obstructive pulmonary disease): Status: Acute Plan 56yo M with COPD, chronic hypoxia on 4L O2, HCV, IDU + pulmonary nodules presenting with dyspnea + hypoxia, initially admitted to ICU on BiPAP, [place] [facility] Acute hypoxic respiratory failure secondary to COPD exacerbation and community-acquired pneumonia status post vancomycin, Zosyn, Augmentin and doxycycline Goal O2 saturation 88-92% baseline oxygen requirement 4 L, currently on 2L Continue theophylline, Spiriva, Breo, and updrafts. wean steroids, plan for 10 daily x5 days and then stop Seen and evaluated by pulmonology Sinus tachycardia Likely secondary to multiple updraft treatments, and theophylline will change to zopenex Continue lorazepam as needed Thrombocytopenia secondary to pneumonia Follow CBC closely History of substance abuse Continue methadone DVT prophylaxis with mechanical compression boots attending Dr. Palmer Full code Disposition - repeat PT eval - home with services. patient does not have PCP, unable to have home services Continue hospitalization for treatment of transient hypoxia and safe discharge placement Time Spent With Patient Time: Total time managing care of this patient today ____ minutes. Quality Stroke Does the patient have a stroke diagnosis?: No VTE Prior VTE?: No VTE Risk Level:: Medical - moderate - high VTE Device Contraindication: Treatment Not Indicated VTE Drug Contraindication: N/A - Med Ordered
[2022-06-16] MEDS: guaiFENesin DM 100/10/5 ML 5 ML SYRUP 10 ML PO (21:56)
[2022-06-17] VITALS (9 sets, daily range): BP systolic 104–128; BP diastolic 62–83; PULSE 100–122; RESP 14–20; TEMP 36.1–36.9; O2SAT 89–98
[2022-06-17] MEDS: oxyCODONE HCl Immed Release 5 MG TABLET PO ×4 (03:49→20:25)
[2022-06-17] MEDS: Magnesium Hydrox/Alum Hydrox 30 ML ORAL.SUSP 15 ML PO (06:18)
[2022-06-17] MEDS: Omeprazole 20 MG CAPSULE.DR PO (06:18)
[2022-06-17] MEDS: ondansetron HCL 4 MG/2 ML VIAL IVPUSH ×2 (06:19→15:01)
[2022-06-17] MEDS: Fluticasone/Vilanterol 200/25 BLST.W.DEV 1 PUFF INHALE (08:13)
[2022-06-17 08:49] LABS: Hematocrit 40.8 % (42.0-52.0); Hemoglobin 13.2 g/dl (14.0-18.0); Mean Corpuscular HGB Conc 32.4 g/dl (31.0-36.0); Mean Corpuscular Volume 83.6 fL (80.0-98.0); Mean Platelet Volume 9.2 fL (9.4-12.4); Red Blood Count 4.88 X10*6/uL (4.60-5.80); Red Cell Distribution Width 15.2 % (11.0-16.0)
[2022-06-17 08:51] LABS: Platelet Count 68 X10*3/uL (160-400)
[2022-06-17 08:56] LABS: D Dimer High Sensitivity 183 NG/ML
[2022-06-17 09:10] LABS: Anion Gap 12 (12-20); Blood Urea Nitrogen 19 mg/dL (9-16); Calcium 8.7 mg/dL (8.4-10.2); Carbon Dioxide 29 mmol/L (22-29); Chloride 101 mmol/L (96-108); Creatinine Clr Calc Pharmacy 77.9; Estimated Glomerular Filt Rate > 60; Glucose Random 84 mg/dL (60-115); Potassium 4.7 mmol/L (3.3-5.1); Sodium 137 mmol/L (135-145)
[2022-06-17] MEDS: PARoxetine HCL 10 MG TABLET PO (10:46)
[2022-06-17] MEDS: predniSONE 10 MG TABLET PO (10:46)
[2022-06-17] MEDS: Theophylline Anhydrous ER 400 MG TAB.ER.24H 200 MG PO ×2 (10:47→20:20)
[2022-06-17] MEDS: methADONE HCl 20 MG/2 ML ORAL.CONC 30 MG PO (10:47)
--- NOTE | 2022-06-17 11:24 | HO.PM.IMPN ---
Subjective Subjective Date of Service: 06/17/22 Interval History: seen and examined this morning follow up for copd denies sob, cough Review of Systems Review of Systems: Yes all other systems are reviewed and are negative Constitutional Constitutional: Denies chills and Denies fever(s) Cardiovascular Cardiovascular: Denies chest pain, Denies palpitations and Denies dyspnea Respiratory Respiratory: Denies cough and Denies dyspnea Gastrointestinal Gastrointestinal: Denies abdominal pain and Denies vomiting Endocrine Endocrine: Denies palpitations Physical Exam Vital Signs: Vital Signs: Last Vital Signs Temp 98.2 F 06/17/22 08:00 Pulse 100 06/17/22 08:00 Resp 15 06/17/22 08:00 BP 110/68 06/17/22 08:00 Pulse Ox 94 06/17/22 08:00 O2 Del Method 06/17/22 08:00 O2 Flow Rate 4 06/17/22 08:00 FiO2 45 06/07/22 19:41 Oxygen Flow Rate 70 05/23/22 21:38 BMI result Body Mass Index 15.0 Appearing in no acute distress lung sounds are clear to auscultation heart regular rate rhythm, clear S1, S2 positive bowel sounds, abdomen is soft, nontender neuro patient is alert x3, no focal deficits Objective Data Active Medications Al Hydroxide/Mg Hydroxide (Magnesium Hydrox/Alum Hydrox 30 Ml Oral.Susp) 15 ml PO Q4H PRN PRN Reason: heartburn Last Admin: 06/17/22 06:18 Dose: 15 ml Documented By: GEN Fluticasone/Vilanterol (Fluticasone/Vilanterol 200/25 Blst.W.Dev) 1 puff INHALE RDAILY [facility] Last Admin: 06/17/22 08:13 Dose: 1 puff Documented By: SRAVAN Guaifenesin/Dextromethorphan (Guaifenesin Dm 100/10/5 Ml 5 Ml Syrup) 10 ml PO TID [facility] Last Admin: 06/17/22 10:47 Dose: Not Given Documented By: CARLIE-SOFFA Non-Admin Reason: Patient Refused Levalbuterol HCl (Levalbuterol Hcl 1.25 Mg/0.5 Ml Vial.Neb) 1.25 mg INHALE RQ4H WHILE AWAKE [facility] Last Admin: 06/17/22 08:13 Dose: 1.25 mg Documented By: SRAVAN Levalbuterol HCl (Levalbuterol Hcl 1.25 Mg/0.5 Ml Vial.Neb) 1.25 mg INHALE Q4H PRN PRN Reason: Shortness of Breath Methadone HCl (Methadone Hcl 20 Mg/2 Ml Oral.Conc) 30 mg PO DAILY [facility] Last Admin: 06/17/22 10:47 Dose: 30 mg Documented By: ADRIA Omeprazole (Omeprazole 20 Mg Capsule.Dr) 20 mg PO DAILY@0630 [facility] Last Admin: 06/17/22 06:18 Dose: 20 mg Documented By: GEN Ondansetron HCl (Ondansetron Hcl 4 Mg/2 Ml Vial) 4 mg IVPUSH Q8H PRN PRN Reason: Nausea and Vomiting Last Admin: 06/17/22 06:19 Dose: 4 mg Documented By: GEN Oxycodone HCl (Oxycodone Hcl Immed Release 5 Mg Tablet) 5 mg PO Q4H PRN PRN Reason: Pain, Mild (Pain Scale 1-3) Last Admin: 06/17/22 10:46 Dose: 5 mg Documented By: ADRIA Paroxetine HCl (Paroxetine Hcl 10 Mg Tablet) 10 mg PO DAILY [facility] Last Admin: 06/17/22 10:46 Dose: 10 mg Documented By: ADRIA Prednisone (Prednisone 10 Mg Tablet) 10 mg PO DAILY [facility] Stop: 06/21/22 10:59 Last Admin: 06/17/22 10:46 Dose: 10 mg Documented By: ADRIA Theophylline (Theophylline Anhydrous Er 400 Mg Tab.Er.24h) 200 mg PO BID [facility] Last Admin: 06/17/22 10:47 Dose: 200 mg Documented By: ADRIA Tiotropium [place] (Tiotropium [place] 18 Mcg Cap.W.Dev) 1 puff INHALE RDAILY [facility] Last Admin: 06/17/22 08:13 Dose: 1 puff Documented By: SRAVAN Labs CBC & Chem 7: 06/17/22 08:41 06/17/22 08:41 Labs: Laboratory Results - last 24 hr 06/17/22 06/17/22 06/17/22 08:41 08:41 08:41 MCV 83.6 MCH 27.0 MCHC 32.4 RDW 15.2 Plt Count 68 L MPV 9.2 L Absolute Nucleated RBC 0.000 Nucleated RBC % (auto) 0.0 D-Dimer High Sensitivty 183 Anion Gap 12 Estim Creat Clear Calc 77.9 Estimated GFR > 60 Random Glucose 84 Calcium 8.7 Assessment and Plan (1) COPD (chronic obstructive pulmonary disease): Status: Acute Plan 56yo M with COPD, chronic hypoxia on 4L O2, HCV, IDU + pulmonary nodules presenting with dyspnea + hypoxia, initially admitted to ICU on BiPAP, stepped-down to [facility] 05/25/22 Acute hypoxic respiratory failure secondary to COPD exacerbation and community-acquired pneumonia status post vancomycin, Zosyn, Augmentin and doxycycline Goal O2 saturation 88-92% baseline oxygen requirement 4 L, currently on 2L Continue theophylline, Spiriva, Breo, and updrafts. wean steroids, plan for 10 daily x5 days and then stop Seen and evaluated by pulmonology Sinus tachycardia Likely secondary to multiple updraft treatments, and theophylline will change to zopenex Continue lorazepam as needed Thrombocytopenia secondary to pneumonia Follow CBC closely History of substance abuse Continue methadone DVT prophylaxis with mechanical compression boots attending Dr. Espinal Full code Disposition - Plan for STR enocurage OOB to chair Continue hospitalization for treatment of transient hypoxia and safe discharge placement Time Spent With Patient Time: Total time managing care of this patient today ____ minutes. Quality Stroke Does the patient have a stroke diagnosis?: No VTE Prior VTE?: No VTE Risk Level:: Medical - moderate - high VTE Device Contraindication: Treatment Not Indicated VTE Drug Contraindication: N/A - Med Ordered
[2022-06-17] MEDS: guaiFENesin DM 100/10/5 ML 5 ML SYRUP 10 ML PO (20:20)
[2022-06-18] VITALS (11 sets, daily range): BP systolic 114–134; BP diastolic 69–83; PULSE 68–110; RESP 12–18; TEMP 36.3–37.5; O2SAT 88–96
[2022-06-18] MEDS: oxyCODONE HCl Immed Release 5 MG TABLET PO ×5 (00:21→20:23)
[2022-06-18] MEDS: Omeprazole 20 MG CAPSULE.DR PO (04:57)
[2022-06-18] MEDS: Fluticasone/Vilanterol 200/25 BLST.W.DEV 1 PUFF INHALE (08:51)
[2022-06-18] MEDS: PARoxetine HCL 10 MG TABLET PO (09:53)
[2022-06-18] MEDS: Theophylline Anhydrous ER 400 MG TAB.ER.24H 200 MG PO ×2 (09:53→19:44)
[2022-06-18] MEDS: methADONE HCl 20 MG/2 ML ORAL.CONC 30 MG PO (09:53)
[2022-06-18] MEDS: guaiFENesin DM 100/10/5 ML 5 ML SYRUP 10 ML PO ×3 (09:53→19:44)
[2022-06-18] MEDS: predniSONE 10 MG TABLET PO (09:54)
--- NOTE | 2022-06-18 11:23 | HO.PM.IMPN ---
Subjective Subjective Date of Service: 06/18/22 Interval History: seen and examined this morning follow up for copd no cough. nosob at this time Review of Systems Review of Systems: Yes all other systems are reviewed and are negative Constitutional Constitutional: Denies chills and Denies fever(s) Cardiovascular Cardiovascular: Denies chest pain, Denies palpitations and Denies dyspnea Respiratory Respiratory: Denies cough and Denies dyspnea Gastrointestinal Gastrointestinal: Denies abdominal pain Endocrine Endocrine: Denies palpitations Physical Exam Vital Signs: Vital Signs: Last Vital Signs Temp 98.3 F 06/18/22 08:00 Pulse 89 06/18/22 08:52 Resp 12 06/18/22 08:00 BP 134/83 06/18/22 08:00 Pulse Ox 93 06/18/22 04:30 O2 Del Method 06/18/22 08:00 O2 Flow Rate 2 06/18/22 08:00 FiO2 45 06/07/22 19:41 Oxygen Flow Rate 70 05/23/22 21:38 BMI result Body Mass Index 15.0 Const: General: cooperative, comfortable, no acute distress, alert and awake Nutritional Appearance: thin Resp: Effort & Inspection: normal respiratory effort, able to speak in complete sentences, no respiratory distress and no use of accessory muscles Cardio: Rate: regular rate Heart sounds: S1 normal heart sound present and S2 normal heart sound present GI: Inspection: No distended Palpation (GI): Soft to palpation Neuro: Other: grossly nonfocal Extrem: General: Yes no pedal edema Objective Data Active Medications Al Hydroxide/Mg Hydroxide (Magnesium Hydrox/Alum Hydrox 30 Ml Oral.Susp) 15 ml PO Q4H PRN PRN Reason: heartburn Last Admin: 06/17/22 06:18 Dose: 15 ml Documented By: GEN Fluticasone/Vilanterol (Fluticasone/Vilanterol 200/25 Blst.W.Dev) 1 puff INHALE RDAILY [facility] Last Admin: 06/18/22 08:51 Dose: 1 puff Documented By: ISIDRA Guaifenesin/Dextromethorphan (Guaifenesin Dm 100/10/5 Ml 5 Ml Syrup) 10 ml PO TID [facility] Last Admin: 06/18/22 09:53 Dose: 10 ml Documented By: GRAHAM Levalbuterol HCl (Levalbuterol Hcl 1.25 Mg/0.5 Ml Vial.Neb) 1.25 mg INHALE RQ4H WHILE AWAKE [facility] Last Admin: 06/18/22 08:51 Dose: 1.25 mg Documented By: ISIDRA Levalbuterol HCl (Levalbuterol Hcl 1.25 Mg/0.5 Ml Vial.Neb) 1.25 mg INHALE Q4H PRN PRN Reason: Shortness of Breath Methadone HCl (Methadone Hcl 20 Mg/2 Ml Oral.Conc) 30 mg PO DAILY [facility] Last Admin: 06/18/22 09:53 Dose: 30 mg Documented By: GRAHAM Comments: Omeprazole (Omeprazole 20 Mg Capsule.Dr) 20 mg PO DAILY@0630 [facility] Last Admin: 06/18/22 04:57 Dose: 20 mg Documented By: JOSE ALBERTO Ondansetron HCl (Ondansetron Hcl 4 Mg/2 Ml Vial) 4 mg IVPUSH Q8H PRN PRN Reason: Nausea and Vomiting Last Admin: 06/17/22 15:01 Dose: 4 mg Documented By: ADRIA Oxycodone HCl (Oxycodone Hcl Immed Release 5 Mg Tablet) 5 mg PO Q4H PRN PRN Reason: Pain, Mild (Pain Scale 1-3) Last Admin: 06/18/22 10:00 Dose: 5 mg Documented By: GRAHAM Paroxetine HCl (Paroxetine Hcl 10 Mg Tablet) 10 mg PO DAILY [facility] Last Admin: 06/18/22 09:53 Dose: 10 mg Documented By: GRAHAM Prednisone (Prednisone 10 Mg Tablet) 10 mg PO DAILY [facility] Stop: 06/21/22 10:59 Last Admin: 06/18/22 09:54 Dose: 10 mg Documented By: GRAHAM Theophylline (Theophylline Anhydrous Er 400 Mg Tab.Er.24h) 200 mg PO BID [facility] Last Admin: 06/18/22 09:53 Dose: 200 mg Documented By: GRAHAM Tiotropium [place] (Tiotropium [place] 18 Mcg Cap.W.Dev) 1 puff INHALE RDAILY [facility] Last Admin: 06/18/22 08:51 Dose: Not Given Documented By: ISIDRA Non-Admin Reason: Med Not Available Labs CBC & Chem 7: 06/17/22 08:41 06/17/22 08:41 Assessment and Plan (1) COPD (chronic obstructive pulmonary disease): Status: Acute Plan 56yo M with COPD, chronic hypoxia on 4L O2, HCV, IDU + pulmonary nodules presenting with dyspnea + hypoxia, initially admitted to ICU on BiPAP, [place] [facility] Acute hypoxic respiratory failure secondary to COPD exacerbation and community-acquired pneumonia status post vancomycin, Zosyn, Augmentin and doxycycline Goal O2 saturation 88-92% baseline oxygen requirement 4 L, currently on 2L Continue theophylline, Spiriva, Breo, and updrafts. wean steroids, plan for 10 daily x5 days and then stop Seen and evaluated by pulmonology Sinus tachycardia Likely secondary to multiple updraft treatments, and theophylline will change to zopenex Continue lorazepam as needed HR seems to be improved, if continues to be elevated can discuss with pulm about decreasing dose of theophylline Thrombocytopenia secondary to pneumonia Follow CBC closely History of substance abuse Continue methadone DVT prophylaxis with mechanical compression boots attending Dr. Figueroa Full code Disposition - Plan for STR enocurage OOB to chair Continue hospitalization for treatment of transient hypoxia and safe discharge placement Time Spent With Patient Time: Total time managing care of this patient today ____ minutes. Quality Stroke Does the patient have a stroke diagnosis?: No VTE Prior VTE?: No VTE Risk Level:: Medical - moderate - high VTE Device Contraindication: Treatment Not Indicated VTE Drug Contraindication: N/A - Med Ordered
[2022-06-18] MEDS: Magnesium Hydrox/Alum Hydrox 30 ML ORAL.SUSP 15 ML PO (17:10)
[2022-06-18] MEDS: ondansetron HCL 4 MG/2 ML VIAL IVPUSH (19:44)
[2022-06-19] VITALS (10 sets, daily range): BP systolic 110–130; BP diastolic 69–89; PULSE 88–177; RESP 16–20; TEMP 36.5–37.3; O2SAT 92–98; BMI 15.0
[2022-06-19] MEDS: oxyCODONE HCl Immed Release 5 MG TABLET PO ×5 (00:45→20:24)
[2022-06-19] MEDS: Omeprazole 20 MG CAPSULE.DR PO (04:51)
[2022-06-19] MEDS: methADONE HCl 20 MG/2 ML ORAL.CONC 30 MG PO (07:52)
[2022-06-19] MEDS: Theophylline Anhydrous ER 400 MG TAB.ER.24H 200 MG PO ×2 (07:53→19:53)
[2022-06-19] MEDS: predniSONE 10 MG TABLET PO (07:54)
[2022-06-19] MEDS: PARoxetine HCL 10 MG TABLET PO (07:54)
[2022-06-19] MEDS: Fluticasone/Vilanterol 200/25 BLST.W.DEV 1 PUFF INHALE (08:35)
--- NOTE | 2022-06-19 09:37 | HO.PM.IMPN ---
Subjective Subjective Date of Service: 06/19/22 Interval History: seen and examined this morning follow up for copd OOB ambulating Review of Systems Review of Systems: Yes all other systems are reviewed and are negative Constitutional Constitutional: Denies chills and Denies fever(s) Cardiovascular Cardiovascular: Denies chest pain, Denies palpitations and Denies dyspnea Respiratory Respiratory: Denies cough and Denies dyspnea Gastrointestinal Gastrointestinal: Denies abdominal pain Endocrine Endocrine: Denies palpitations Physical Exam Vital Signs: Vital Signs: Last Vital Signs Temp 98.1 F 06/19/22 07:43 Pulse 104 H 06/19/22 08:38 Resp 16 06/19/22 08:38 BP 110/69 06/19/22 07:43 Pulse Ox 96 06/19/22 07:43 O2 Del Method 06/19/22 07:43 O2 Flow Rate 4 06/19/22 07:43 FiO2 45 06/07/22 19:41 Oxygen Flow Rate 70 05/23/22 21:38 BMI result Body Mass Index 15.0 Appearing in no acute distress lung sounds are clear to auscultation heart regular rate rhythm, clear S1, S2 positive bowel sounds, abdomen is soft, nontender neuro patient is alert x3, no focal deficits Objective Data Active Medications Al Hydroxide/Mg Hydroxide (Magnesium Hydrox/Alum Hydrox 30 Ml Oral.Susp) 15 ml PO Q4H PRN PRN Reason: heartburn Last Admin: 06/18/22 17:10 Dose: 15 ml Documented By: GRAHAM Fluticasone/Vilanterol (Fluticasone/Vilanterol 200/25 Blst.W.Dev) 1 puff INHALE RDAILY [facility] Last Admin: 06/19/22 08:35 Dose: 1 puff Documented By: SRAVAN Guaifenesin/Dextromethorphan (Guaifenesin Dm 100/10/5 Ml 5 Ml Syrup) 10 ml PO TID [facility] Last Admin: 06/19/22 07:54 Dose: Not Given Documented By: CATARINO Non-Admin Reason: Patient Refused Levalbuterol HCl (Levalbuterol Hcl 1.25 Mg/0.5 Ml Vial.Neb) 1.25 mg INHALE RQ4H WHILE AWAKE [facility] Last Admin: 06/19/22 08:37 Dose: 1.25 mg Documented By: SRAVAN Levalbuterol HCl (Levalbuterol Hcl 1.25 Mg/0.5 Ml Vial.Neb) 1.25 mg INHALE Q4H PRN PRN Reason: Shortness of Breath Methadone HCl (Methadone Hcl 20 Mg/2 Ml Oral.Conc) 30 mg PO DAILY [facility] Last Admin: 06/19/22 07:52 Dose: 30 mg Documented By: CATARINO Omeprazole (Omeprazole 20 Mg Capsule.Dr) 20 mg PO DAILY@0630 [facility] Last Admin: 06/19/22 04:51 Dose: 20 mg Documented By: JACKELYN Ondansetron HCl (Ondansetron Hcl 4 Mg/2 Ml Vial) 4 mg IVPUSH Q8H PRN PRN Reason: Nausea and Vomiting Last Admin: 06/18/22 19:44 Dose: 4 mg Documented By: JACKELYN Oxycodone HCl (Oxycodone Hcl Immed Release 5 Mg Tablet) 5 mg PO Q4H PRN PRN Reason: Pain, Moderate (Pain Scale 4-6 Last Admin: 06/19/22 04:51 Dose: 5 mg Documented By: JACKELYN Paroxetine HCl (Paroxetine Hcl 10 Mg Tablet) 10 mg PO DAILY [facility] Last Admin: 06/19/22 07:54 Dose: 10 mg Documented By: CATARINO Prednisone (Prednisone 10 Mg Tablet) 10 mg PO DAILY [facility] Stop: 06/21/22 10:59 Last Admin: 06/19/22 07:54 Dose: 10 mg Documented By: CATARINO Theophylline (Theophylline Anhydrous Er 400 Mg Tab.Er.24h) 200 mg PO BID [facility] Last Admin: 06/19/22 07:53 Dose: 200 mg Documented By: CATARINO Tiotropium [place] (Tiotropium [place] 18 Mcg Cap.W.Dev) 1 puff INHALE RDAILY [facility] Last Admin: 06/19/22 08:35 Dose: 1 puff Documented By: SRAVAN Labs CBC & Chem 7: 06/17/22 08:41 06/17/22 08:41 Assessment and Plan (1) COPD (chronic obstructive pulmonary disease): Status: Acute Plan 56yo M with COPD, chronic hypoxia on 4L O2, HCV, IDU + pulmonary nodules presenting with dyspnea + hypoxia, initially admitted to ICU on BiPAP, [place] [facility] [place] Acute hypoxic respiratory failure secondary to COPD exacerbation and community-acquired pneumonia status post vancomycin, Zosyn, Augmentin and doxycycline Goal O2 saturation 88-92% baseline oxygen requirement 4 L, currently on 2L Continue theophylline, Spiriva, Breo, and updrafts. wean steroids, plan for 10 daily x5 days and then stop 06/21/22 Seen and evaluated by pulmonology Sinus tachycardia Likely secondary to multiple updraft treatments, and theophylline will change to zopenex Continue lorazepam as needed HR seems to be improved, if continues to be elevated can discuss with pulm about decreasing dose of theophylline Thrombocytopenia secondary to pneumonia Follow CBC closely History of substance abuse Continue methadone DVT prophylaxis with mechanical compression boots attending Dr. Figueroa Full code Disposition - Plan for STR enocurage OOB to chair Continue hospitalization for treatment of transient hypoxia and safe discharge placement Time Spent With Patient Time: Total time managing care of this patient today ____ minutes. Quality Stroke Does the patient have a stroke diagnosis?: No VTE Prior VTE?: No VTE Risk Level:: Medical - moderate - high VTE Device Contraindication: Treatment Not Indicated VTE Drug Contraindication: N/A - Med Ordered
--- NOTE | 2022-06-19 11:40 | MHC.CM.PN ---
EMR REVIEVED, PER HOSPITALIST PT IS CLEARED FOR D/C HOME HOWEVER FAMILY REPORTING PT'S BROTHER IS UNABLE TO CARE FOR PT HE TAKES CARE OF PT'S FATHER W/DEMENTIA WHO IS SICK, ALSO THE OTHER BROTHER WHO PT LIVES W/HAS SPECIAL NEEDS, PT MET W/ONE OF PT'S BROTHER WHO DOES NOT LIVE IN HOME AT BEDSIDE AND PT REPORTS HE IS NOW AGREEABLE TO STR, PT WILL REASSESS. SNF REFERRAL UPDATED AND CM TO CONT TO FOLLOW D/C NEEDS.
--- NOTE | 2022-06-19 13:58 | MHC.CLN ---
F/U PO INTAKE 50-100% DIET RX: REGULAR-APPROPRIATE PT RECEIVING ENSURE BID TO INCREASE KCALS PROVIDES 700KCALS, 40G PROTEIN SHOWS 11.3% WEIGHT LOSS SINCE ADMISSION DESPITE USUALLY GOOD INTAKE AT [facility]. 2+ EDEMA PRESENT UPON ADMISSION AND NON NOTED CURRENTLY. SUSPECT DECREASED EDEMA LIKELY CONTRIBUTOR TO WEIGHT LOSS. CONTINUE TO MONITOR PO INTAKE CLOSELY.
[2022-06-19] MEDS: LORazepam 1 MG TABLET PO (14:09)
[2022-06-19] MEDS: guaiFENesin DM 100/10/5 ML 5 ML SYRUP 10 ML PO (19:52)
[2022-06-20] VITALS (11 sets, daily range): BP systolic 116–135; BP diastolic 59–81; PULSE 93–108; RESP 12–18; TEMP 36.4–37.3; O2SAT 90–100; BMI 15.0
[2022-06-20] MEDS: oxyCODONE HCl Immed Release 5 MG TABLET PO ×5 (04:10→23:36)
[2022-06-20] MEDS: Omeprazole 20 MG CAPSULE.DR PO (04:11)
[2022-06-20] MEDS: Fluticasone/Vilanterol 200/25 BLST.W.DEV 1 PUFF INHALE (08:01)
[2022-06-20] MEDS: PARoxetine HCL 10 MG TABLET PO (08:38)
[2022-06-20] MEDS: guaiFENesin DM 100/10/5 ML 5 ML SYRUP 10 ML PO ×3 (08:38→21:38)
[2022-06-20] MEDS: predniSONE 10 MG TABLET PO (08:38)
[2022-06-20] MEDS: Theophylline Anhydrous ER 400 MG TAB.ER.24H 200 MG PO ×2 (08:38→21:38)
[2022-06-20] MEDS: methADONE HCl 20 MG/2 ML ORAL.CONC 30 MG PO (08:39)
--- NOTE | 2022-06-20 09:10 | HO.PM.IMPN ---
Subjective Subjective Date of Service: 06/20/22 Interval History: seen and examined this morning follow up for copd OOB ambulating Review of Systems Review of Systems: Yes all other systems are reviewed and are negative Constitutional Constitutional: Denies chills and Denies fever(s) Cardiovascular Cardiovascular: Denies chest pain, Denies palpitations and Denies dyspnea Respiratory Respiratory: Denies cough and Denies dyspnea Gastrointestinal Gastrointestinal: Denies abdominal pain Endocrine Endocrine: Denies palpitations Physical Exam Vital Signs: Vital Signs: Last Vital Signs Temp 97.9 F 06/20/22 07:15 Pulse 93 06/20/22 08:06 Resp 16 06/20/22 08:06 BP 118/65 06/20/22 07:15 Pulse Ox 90 L 06/20/22 07:15 O2 Del Method 06/20/22 07:15 O2 Flow Rate 3 06/20/22 03:12 FiO2 45 06/07/22 19:41 Oxygen Flow Rate 70 05/23/22 21:38 BMI result Body Mass Index 15.0 Appearing in no acute distress lung sounds are clear to auscultation heart regular rate rhythm, clear S1, S2 positive bowel sounds, abdomen is soft, nontender neuro patient is alert x3, no focal deficits Objective Data Active Medications Al Hydroxide/Mg Hydroxide (Magnesium Hydrox/Alum Hydrox 30 Ml Oral.Susp) 15 ml PO Q4H PRN PRN Reason: heartburn Last Admin: 06/18/22 17:10 Dose: 15 ml Documented By: GRAHAM Fluticasone/Vilanterol (Fluticasone/Vilanterol 200/25 Blst.W.Dev) 1 puff INHALE RDAILY [facility] Last Admin: 06/20/22 08:01 Dose: 1 puff Documented By: UNIQUE Guaifenesin/Dextromethorphan (Guaifenesin Dm 100/10/5 Ml 5 Ml Syrup) 10 ml PO TID [facility] Last Admin: 06/20/22 08:38 Dose: 10 ml Documented By: ALPHONSE Levalbuterol HCl (Levalbuterol Hcl 1.25 Mg/0.5 Ml Vial.Neb) 1.25 mg INHALE RQ4H WHILE AWAKE [facility] Last Admin: 06/20/22 08:01 Dose: 1.25 mg Documented By: UNIQUE Levalbuterol HCl (Levalbuterol Hcl 1.25 Mg/0.5 Ml Vial.Neb) 1.25 mg INHALE Q4H PRN PRN Reason: Shortness of Breath Lorazepam (Lorazepam 1 Mg Tablet) 1 mg PO Q4H PRN PRN Reason: Anxiety Last Admin: 06/19/22 14:09 Dose: 1 mg Documented By: EMMA Methadone HCl (Methadone Hcl 20 Mg/2 Ml Oral.Conc) 30 mg PO DAILY [facility] Last Admin: 06/20/22 08:39 Dose: 30 mg Documented By: ALPHONSE Omeprazole (Omeprazole 20 Mg Capsule.Dr) 20 mg PO DAILY@0630 [facility] Last Admin: 06/20/22 04:11 Dose: 20 mg Documented By: SIERRA Ondansetron HCl (Ondansetron Hcl 4 Mg/2 Ml Vial) 4 mg IVPUSH Q8H PRN PRN Reason: Nausea and Vomiting Last Admin: 06/18/22 19:44 Dose: 4 mg Documented By: JACKELYN Oxycodone HCl (Oxycodone Hcl Immed Release 5 Mg Tablet) 5 mg PO Q4H PRN PRN Reason: Pain, Moderate (Pain Scale 4-6 Last Admin: 06/20/22 08:40 Dose: 5 mg Documented By: ALPHONSE Paroxetine HCl (Paroxetine Hcl 10 Mg Tablet) 10 mg PO DAILY [facility] Last Admin: 06/20/22 08:38 Dose: 10 mg Documented By: ALPHONSE Prednisone (Prednisone 10 Mg Tablet) 10 mg PO DAILY [facility] Stop: 06/21/22 10:59 Last Admin: 06/20/22 08:38 Dose: 10 mg Documented By: ALPHONSE Theophylline (Theophylline Anhydrous Er 400 Mg Tab.Er.24h) 200 mg PO BID [facility] Last Admin: 06/20/22 08:38 Dose: 200 mg Documented By: ALPHONSE Tiotropium [place] (Tiotropium [place] 18 Mcg Cap.W.Dev) 1 puff INHALE RDAILY [facility] Last Admin: 06/20/22 08:03 Dose: 1 puff Documented By: UNIQUE Labs CBC & Chem 7: 06/17/22 08:41 06/17/22 08:41 Assessment and Plan (1) COPD (chronic obstructive pulmonary disease): Status: Acute Plan 56yo M with COPD, chronic hypoxia on 4L O2, HCV, IDU + pulmonary nodules presenting with dyspnea + hypoxia, initially admitted to ICU on BiPAP, [place] [facility] [place] Acute hypoxic respiratory failure secondary to COPD exacerbation and community-acquired pneumonia. Resolved status post vancomycin, Zosyn, Augmentin and doxycycline Goal O2 saturation 88-92% baseline oxygen requirement 4 L, currently on 2L Continue theophylline, Spiriva, Breo, and updrafts. wean steroids, plan for 10 daily x5 days and then stop 06/21/22 Seen and evaluated by pulmonology Sinus tachycardia Likely secondary to multiple updraft treatments, and theophylline will change to zopenex Continue lorazepam as needed HR seems to be improved, if continues to be elevated can discuss with pulm about decreasing dose of theophylline Thrombocytopenia secondary to pneumonia Follow CBC closely History of substance abuse Continue methadone DVT prophylaxis with mechanical compression boots attending Dr. Palmer Full code Disposition - Plan for STR enocurage OOB to chair Continue hospitalization for treatment of transient hypoxia and safe discharge placement Time Spent With Patient Time: Total time managing care of this patient today ____ minutes. Quality Stroke Does the patient have a stroke diagnosis?: No VTE Prior VTE?: No VTE Risk Level:: Medical - moderate - high VTE Device Contraindication: Treatment Not Indicated VTE Drug Contraindication: N/A - Med Ordered
[2022-06-20] MEDS: LORazepam 1 MG TABLET PO ×2 (19:36→23:37)
[2022-06-21] VITALS (11 sets, daily range): BP systolic 111–144; BP diastolic 60–90; PULSE 95–126; RESP 12–20; TEMP 36.7–37; O2SAT 88–95; BMI 16.5
[2022-06-21] MEDS: Omeprazole 20 MG CAPSULE.DR PO (05:24)
[2022-06-21] MEDS: LORazepam 1 MG TABLET PO ×2 (05:24→23:56)
[2022-06-21] MEDS: oxyCODONE HCl Immed Release 5 MG TABLET PO ×3 (05:24→23:56)
[2022-06-21] MEDS: Fluticasone/Vilanterol 200/25 BLST.W.DEV 1 PUFF INHALE (08:00)
[2022-06-21] MEDS: PARoxetine HCL 10 MG TABLET PO (09:00)
[2022-06-21] MEDS: Theophylline Anhydrous ER 400 MG TAB.ER.24H 200 MG PO ×2 (09:00→20:36)
[2022-06-21] MEDS: predniSONE 10 MG TABLET PO (09:00)
[2022-06-21] MEDS: guaiFENesin DM 100/10/5 ML 5 ML SYRUP 10 ML PO ×3 (09:00→20:36)
[2022-06-21] MEDS: methADONE HCl 20 MG/2 ML ORAL.CONC 30 MG PO (09:00)
--- NOTE | 2022-06-21 10:49 | MHC.CLN ---
F/U PO INTAKE 70% AVERAGE DIET RX: REGULAR-APPROPRIATE PT RECEIVES ENSURE BID PROVIDES 700KCALS, 40G PROTEIN MOST CURRENT WT 55.1KG CONTINUE TO MONITOR PO INTAKE CLOSELY
--- NOTE | 2022-06-21 11:34 | MHC.CM.PN ---
ELY updated Patient's [facility] ELY/Hanna @ [phone] regarding dc planning.
--- NOTE | 2022-06-21 12:00 | HO.PM.IMPN ---
Subjective Subjective Date of Service: 06/21/22 Interval History: seen and examined this morning follow up for copd OOB ambulating Review of Systems Review of Systems: Yes all other systems are reviewed and are negative Constitutional Constitutional: Denies chills and Denies fever(s) Cardiovascular Cardiovascular: Denies chest pain, Denies palpitations and Denies dyspnea Respiratory Respiratory: Denies cough and Denies dyspnea Gastrointestinal Gastrointestinal: Denies abdominal pain Endocrine Endocrine: Denies palpitations Physical Exam Vital Signs: Vital Signs: Last Vital Signs Temp 98.2 F 06/21/22 11:14 Pulse 116 H 06/21/22 11:31 Resp 14 06/21/22 11:31 BP 137/90 H 06/21/22 11:14 Pulse Ox 94 06/21/22 11:14 O2 Del Method 06/21/22 11:14 O2 Flow Rate 2 06/21/22 11:14 FiO2 45 06/07/22 19:41 Oxygen Flow Rate 70 05/23/22 21:38 BMI result Body Mass Index 16.5 Appearing in no acute distress lung sounds are clear to auscultation heart regular rate rhythm, clear S1, S2 positive bowel sounds, abdomen is soft, nontender neuro patient is alert x3, no focal deficits Objective Data Active Medications Al Hydroxide/Mg Hydroxide (Magnesium Hydrox/Alum Hydrox 30 Ml Oral.Susp) 15 ml PO Q4H PRN PRN Reason: heartburn Last Admin: 06/18/22 17:10 Dose: 15 ml Documented By: GRAHAM Fluticasone/Vilanterol (Fluticasone/Vilanterol 200/25 Blst.W.Dev) 1 puff INHALE RDAILY [facility] Last Admin: 06/21/22 08:00 Dose: 1 puff Documented By: SRAVAN Guaifenesin/Dextromethorphan (Guaifenesin Dm 100/10/5 Ml 5 Ml Syrup) 10 ml PO TID [facility] Last Admin: 06/21/22 09:00 Dose: 10 ml Documented By: SABINA Levalbuterol HCl (Levalbuterol Hcl 1.25 Mg/0.5 Ml Vial.Neb) 1.25 mg INHALE RQ4H WHILE AWAKE [facility] Last Admin: 06/21/22 11:29 Dose: 1.25 mg Documented By: SRAVAN Levalbuterol HCl (Levalbuterol Hcl 1.25 Mg/0.5 Ml Vial.Neb) 1.25 mg INHALE Q4H PRN PRN Reason: Shortness of Breath Lorazepam (Lorazepam 1 Mg Tablet) 1 mg PO Q4H PRN PRN Reason: Anxiety Last Admin: 06/21/22 05:24 Dose: 1 mg Documented By: ANNITA Methadone HCl (Methadone Hcl 20 Mg/2 Ml Oral.Conc) 30 mg PO DAILY [facility] Last Admin: 06/21/22 09:00 Dose: 30 mg Documented By: SABINA Omeprazole (Omeprazole 20 Mg Capsule.Dr) 20 mg PO DAILY@0630 [facility] Last Admin: 06/21/22 05:24 Dose: 20 mg Documented By: ANNITA Ondansetron HCl (Ondansetron Hcl 4 Mg/2 Ml Vial) 4 mg IVPUSH Q8H PRN PRN Reason: Nausea and Vomiting Last Admin: 06/18/22 19:44 Dose: 4 mg Documented By: JACKELYN Oxycodone HCl (Oxycodone Hcl Immed Release 5 Mg Tablet) 5 mg PO Q4H PRN PRN Reason: Pain, Moderate (Pain Scale 4-6 Last Admin: 06/21/22 05:24 Dose: 5 mg Documented By: ANNITA Paroxetine HCl (Paroxetine Hcl 10 Mg Tablet) 10 mg PO DAILY [facility] Last Admin: 06/21/22 09:00 Dose: 10 mg Documented By: SABINA Theophylline (Theophylline Anhydrous Er 400 Mg Tab.Er.24h) 200 mg PO BID [facility] Last Admin: 06/21/22 09:00 Dose: 200 mg Documented By: SABINA Tiotropium [place] (Tiotropium [place] 18 Mcg Cap.W.Dev) 1 puff INHALE RDAILY [facility] Last Admin: 06/21/22 08:00 Dose: 1 puff Documented By: SRAVAN Labs CBC & Chem 7: 06/17/22 08:41 06/17/22 08:41 Assessment and Plan (1) COPD (chronic obstructive pulmonary disease): Status: Acute Plan 56yo M with COPD, chronic hypoxia on 4L O2, HCV, IDU + pulmonary nodules presenting with dyspnea + hypoxia, initially admitted to ICU on BiPAP, stepped-down to [facility] 05/25/22 Acute hypoxic respiratory failure secondary to COPD exacerbation and community-acquired pneumonia. Resolved status post vancomycin, Zosyn, Augmentin and doxycycline Goal O2 saturation 88-92% baseline oxygen requirement 4 L, currently on 2L Continue theophylline, Spiriva, Breo, and updrafts. wean steroids, plan for 10 daily x5 days and then stop 06/21/22 Seen and evaluated by pulmonology Sinus tachycardia Likely secondary to multiple updraft treatments, and theophylline will change to zopenex Continue lorazepam as needed HR seems to be improved, if continues to be elevated can discuss with pulm about decreasing dose of theophylline Thrombocytopenia secondary to pneumonia Follow CBC closely History of substance abuse Continue methadone DVT prophylaxis with mechanical compression boots attending Dr. Palmer Full code Disposition - Plan for STR enocurage OOB to chair Continue hospitalization for treatment of transient hypoxia and safe discharge placement Time Spent With Patient Time: Total time managing care of this patient today ____ minutes. Quality Stroke Does the patient have a stroke diagnosis?: No VTE Prior VTE?: No VTE Risk Level:: Medical - moderate - high VTE Device Contraindication: Treatment Not Indicated VTE Drug Contraindication: N/A - Med Ordered
[2022-06-21 12:56] LABS: VBG Base Excess 2.9 mmol/L; VBG HCO3 27 mmol/L (22-26); VBG pCO2 39 mmHg; VBG pH 7.44 (7.32-7.43); VBG pO2 76 mmHg
[2022-06-21 12:58] LABS: Venous Blood Gas Refer to POC result
--- NOTE | 2022-06-21 14:11 | MHC.CM.PN ---
CM continues to await bed availability at [facility]. CM will follow. PT is recommending STR.
[2022-06-22] VITALS (11 sets, daily range): BP systolic 98–148; BP diastolic 68–87; PULSE 96–137; RESP 12–21; TEMP 36.4–37; O2SAT 86–97; BMI 16.4
[2022-06-22] MEDS: oxyCODONE HCl Immed Release 5 MG TABLET PO ×2 (04:39→23:03)
[2022-06-22] MEDS: LORazepam 1 MG TABLET PO (04:39)
[2022-06-22] MEDS: Omeprazole 20 MG CAPSULE.DR PO (05:40)
[2022-06-22 07:05] LABS: Anion Gap 12 (12-20); Blood Urea Nitrogen 15 mg/dL (9-16); Calcium 8.5 mg/dL (8.4-10.2); Carbon Dioxide 29 mmol/L (22-29); Chloride 104 mmol/L (96-108); Creatinine Clr Calc Pharmacy 75.6; Estimated Glomerular Filt Rate > 60; Glucose Random 141 mg/dL (60-115); Potassium 3.7 mmol/L (3.3-5.1); Sodium 141 mmol/L (135-145)
[2022-06-22] MEDS: Fluticasone/Vilanterol 200/25 BLST.W.DEV 1 PUFF INHALE (07:49)
[2022-06-22] MEDS: methADONE HCl 20 MG/2 ML ORAL.CONC 30 MG PO (09:41)
[2022-06-22] MEDS: Theophylline Anhydrous ER 400 MG TAB.ER.24H 200 MG PO ×2 (09:42→21:09)
[2022-06-22] MEDS: guaiFENesin DM 100/10/5 ML 5 ML SYRUP 10 ML PO ×3 (09:42→21:10)
[2022-06-22] MEDS: PARoxetine HCL 10 MG TABLET PO (09:43)
--- NOTE | 2022-06-22 13:47 | P.PNIM_ITS ---
Subjective Subjective Date of Service: 06/22/22 Interval History: seen and examined this morning follow up for copd exacerbation denies sob at this time denies palpitations Review of Systems Review of Systems: Yes all other systems are reviewed and are negative Constitutional Constitutional: Denies chills and Denies fever(s) Cardiovascular Cardiovascular: Denies chest pain, Denies palpitations and Denies dyspnea Respiratory Respiratory: Reports cough and Denies dyspnea Endocrine Endocrine: Denies palpitations Physical Exam Vital Signs: Vital Signs: Last Vital Signs Temp 97.6 F 06/22/22 12:00 Pulse 137 H 06/22/22 12:00 Resp 14 06/22/22 12:00 BP 98/70 06/22/22 12:00 Pulse Ox 87 L 06/22/22 12:00 O2 Del Method 06/22/22 12:00 O2 Flow Rate 3 06/22/22 12:00 FiO2 45 06/07/22 19:41 Oxygen Flow Rate 70 05/23/22 21:38 BMI result Body Mass Index 16.4 Const: General: comfortable and no acute distress Nutritional Appearance: thin Resp: Effort & Inspection: normal respiratory effort and able to speak in complete sentences Cardio: Rate: tachycardic Heart sounds: S1 normal heart sound present and S2 normal heart sound present GI: Palpation (GI): Soft to palpation and nontender Extrem: General: Yes no pedal edema Objective Data Active Medications Al Hydroxide/Mg Hydroxide (Magnesium Hydrox/Alum Hydrox 30 Ml Oral.Susp) 15 ml PO Q4H PRN PRN Reason: heartburn Last Admin: 06/18/22 17:10 Dose: 15 ml Documented By: GRAHAM Fluticasone/Vilanterol (Fluticasone/Vilanterol 200/25 Blst.W.Dev) 1 puff INHALE RDAILY [facility] Last Admin: 06/22/22 07:49 Dose: 1 puff Documented By: SRAVAN Guaifenesin/Dextromethorphan (Guaifenesin Dm 100/10/5 Ml 5 Ml Syrup) 10 ml PO TID [facility] Last Admin: 06/22/22 09:42 Dose: 10 ml Documented By: SABINA Levalbuterol HCl (Levalbuterol Hcl 1.25 Mg/0.5 Ml Vial.Neb) 1.25 mg INHALE RQ4H WHILE AWAKE [facility] Last Admin: 06/22/22 11:29 Dose: 1.25 mg Documented By: SRAVAN Levalbuterol HCl (Levalbuterol Hcl 1.25 Mg/0.5 Ml Vial.Neb) 1.25 mg INHALE Q4H PRN PRN Reason: Shortness of Breath Lorazepam (Lorazepam 1 Mg Tablet) 1 mg PO Q8H PRN PRN Reason: Anxiety Methadone HCl (Methadone Hcl 20 Mg/2 Ml Oral.Conc) 30 mg PO DAILY [facility] Last Admin: 06/22/22 09:41 Dose: 30 mg Documented By: SABINA Omeprazole (Omeprazole 20 Mg Capsule.Dr) 20 mg PO DAILY@0630 [facility] Last Admin: 06/22/22 05:40 Dose: 20 mg Documented By: SHAHIDA Ondansetron HCl (Ondansetron Hcl 4 Mg/2 Ml Vial) 4 mg IVPUSH Q8H PRN PRN Reason: Nausea and Vomiting Last Admin: 06/18/22 19:44 Dose: 4 mg Documented By: JACKELYN Oxycodone HCl (Oxycodone Hcl Immed Release 5 Mg Tablet) 5 mg PO Q4H PRN PRN Reason: Pain, Moderate (Pain Scale 4-6 Last Admin: 06/22/22 04:39 Dose: 5 mg Documented By: SHAHIDA Paroxetine HCl (Paroxetine Hcl 10 Mg Tablet) 10 mg PO DAILY [facility] Last Admin: 06/22/22 09:43 Dose: 10 mg Documented By: SABINA Theophylline (Theophylline Anhydrous Er 400 Mg Tab.Er.24h) 200 mg PO BID [facility] Last Admin: 06/22/22 09:42 Dose: 200 mg Documented By: SABINA Tiotropium [place] (Tiotropium [place] 18 Mcg Cap.W.Dev) 1 puff INHALE RDAILY [facility] Last Admin: 06/22/22 07:49 Dose: 1 puff Documented By: SRAVAN Labs CBC & Chem 7: 06/17/22 08:41 06/22/22 05:56 Labs: Laboratory Results - last 24 hr 06/22/22 05:56 Anion Gap 12 Estim Creat Clear Calc 75.6 Estimated GFR > 60 Random Glucose 141 H Calcium 8.5 Assessment and Plan (1) COPD (chronic obstructive pulmonary disease): Status: Acute Plan 56yo M with COPD, chronic hypoxia on 4L O2, HCV, IDU + pulmonary nodules presenting with dyspnea + hypoxia, initially admitted to ICU on BiPAP, stepped- down to [facility] [place] 05/25/22 Acute hypoxic respiratory failure secondary to COPD exacerbation and community- acquired pneumonia. Resolved status post vancomycin, Zosyn, Augmentin and doxycycline Goal O2 saturation 88-92% baseline oxygen requirement 4 L, currently on 2L Continue theophylline, Spiriva, Breo, and updrafts. steroids weaned Seen and evaluated by pulmonology Sinus tachycardia Likely secondary to multiple updraft treatments, and theophylline changed to zopenex HR seems to be improved, if continues to be elevated can discuss with pulm about decreasing dose of theophylline will check theophylline level Thrombocytopenia secondary to infection repeat CBC today anxiety wean ativan History of substance abuse Continue methadone DVT prophylaxis with mechanical compression boots attending Dr. Palmer Full code Disposition - Plan for STR encourage OOB to chair Continue hospitalization for treatment of transient hypoxia and safe discharge placement Time Spent With Patient Time: Total time managing care of this patient today ____ minutes. Quality Stroke Does the patient have a stroke diagnosis?: No VTE Prior VTE?: No VTE Risk Level:: Medical - moderate - high VTE Device Contraindication: Treatment Not Indicated VTE Drug Contraindication: N/A - Med Ordered
[2022-06-22 14:08] LABS: Hemoglobin 14.4 g/dl (14.0-18.0); Red Cell Distribution Width 14.9 % (11.0-16.0)
[2022-06-22 14:17] LABS: Hematocrit 43.9 % (42.0-52.0); Mean Corpuscular HGB Conc 32.8 g/dl (31.0-36.0); Mean Corpuscular Volume 82.4 fL (80.0-98.0); Red Blood Count 5.33 X10*6/uL (4.60-5.80); White Blood Count 13.2 X10*3/uL (4.8-10.8)
[2022-06-22 14:19] LABS: Platelet Count 160 X10*3/uL (160-400)
[2022-06-22] MEDS: Mineral Oil/Petrolatum,White 106 GM Tube 1 APPL TOPICAL (21:10)
[2022-06-23] VITALS (8 sets, daily range): BP systolic 107–144; BP diastolic 64–80; PULSE 70–109; RESP 16–20; TEMP 36.6–37.2; O2SAT 91–95
[2022-06-23] MEDS: oxyCODONE HCl Immed Release 5 MG TABLET PO ×3 (03:20→17:29)
[2022-06-23] MEDS: Omeprazole 20 MG CAPSULE.DR PO (05:00)
--- NOTE | 2022-06-23 07:00 | CA_ITS ---
Transthoracic Echocardiogram Patient (Last, First, Middle): Arnaud Triplett O Gender: Male Date of : 1965 Age: 56 Procedure Date: 06/23/2022 Procedure Type: Transthoracic Echocardiogram Location: [facility] [place] Height: 182.88 cm Weight: 54.43 kg BSA: 1.71 m2 Heart Rate: 107 bpm BP: 115 / 68 mmHg Ab Initio Etl Developer: SB Referring MD: Ivana BUNN Underground Utility Locator: Malik Chaudhari MD Symptoms: persistant tachycardia Study Quality: Technically Difficult ECG Rhythm: Tachycardia Conclusions: - 1. Technically limited study as only subcostal views could be obtained. Next 2. LV systolic function appears preserved with LVEF of greater than 50% 3. No significant abnormality of cardiac valvular Doppler 4. Normal measured RV systolic pressure 5. No gross pericardial effusion Findings Left Ventricle The left ventricle was not well visualized. Diastolic function is indeterminate on the basis of available data. LV visualized only while subcostal views. LV systolic function appears greater than 50%. Right Ventricle Normal right ventricular cavity size. There is normal right ventricular systolic function. Atria Off axis views but appears to be of normal size. Aortic Valve The aortic valve structure and function is likely normal. There is no aortic valve stenosis. There is no aortic valve regurgitation. Mitral Valve Likely normal mitral valve structure and function. There is no mitral valve regurgitation. Pulmonic Valve The pulmonic valve was not well visualized. Tricuspid Valve Likely normal tricuspid valve structure and function. There is trace tricuspid valve regurgitation. The right ventricular systolic pressure is normal. Low right atrial pressure. Great Vessels The aorta was not well visualized. The pulmonary artery was not well visualized. Venous The inferior vena cava is collapsed, consistent with reduced intravascular volume and collapses greater than 50% with inspiration. Pericardium/Pleural There is no evidence of pericardial effusion. Measurements 2D Linear Measurements IVSd: 1.10 0.6-0.9/0.6-1.0 cm LVIDd: 3.43 3.9-5.3/4.2-5.9 cm LVIDd Index: 2.01 2.4-3.2/2.2-3.1 cm/m2 LVIDs: 1.91 2.0-3.6 cm LVPWd: 0.64 0.7-1.1 cm LV Mass: 101.83 67-162/88-224 g LV Mass Index: 59.55 43-95/49-115 g/m2 LVOT Diam: 2.00 3.0+(-)1.3 cm 2D Systolic Function EF 4C: 51.50 >55% EF BiP: 51.00 >55% Mitral Valve E'Lateral: 6.28 E'Medial: 8.68 Aortic Valve AoV Pk Cristobal: 1.07 AoV Pk Grad: 5.00 MIGUE: 2.54 LVOT LVOT Pk Cristobal: 0.87 LVOT Mn Cristobal: 0.60 LVOT VTI: 0.13 LVOT Pk Grad: 3.00 LVOT Mn Grad: 2.00 LVOT Diam: 2.00 LVOT Area: 3.14 Diastolic Function E'Medial: 8.68 E' Laterial: 6.28 Right Ventricle TAPSE (mm): 20.50 TVS' Cristobal: 14.80 Tricuspid Valve TR Pk Cristobal: 2.15 TR Pk Grad: 18.00 RA Press: 3.00 RVSP: 21.00 Great Vessels Aorta Sinus of Valsalva: 3.40 2.0-3.5 cm Ao Asc: 3.60 2.1-3.4 cm Pulmonary Valve PV Pk Cristobal: 1.01 Peak PV Grad: 4.00 Updated in Other Vendor System with Status of Final Malik Chaudhari MD electronically signed on 06/23/2022 4:25:33 PM with status of Final
[2022-06-23 08:10] LABS: VBG Base Excess 3.5 mmol/L; VBG HCO3 27 mmol/L (22-26); VBG pCO2 40 mmHg; VBG pH 7.44 (7.32-7.43); VBG pO2 57 mmHg
[2022-06-23] MEDS: Fluticasone/Vilanterol 200/25 BLST.W.DEV 1 PUFF INHALE (08:13)
[2022-06-23 08:23] LABS: Theophylline 20.4
[2022-06-23] MEDS: methADONE HCl 20 MG/2 ML ORAL.CONC 30 MG PO (09:11)
[2022-06-23] MEDS: Theophylline Anhydrous ER 400 MG TAB.ER.24H 200 MG PO (09:11)
[2022-06-23] MEDS: PARoxetine HCL 10 MG TABLET PO (09:11)
[2022-06-23] MEDS: Mineral Oil/Petrolatum,White 106 GM Tube 1 APPL TOPICAL (09:13)
--- NOTE | 2022-06-23 11:01 | MHC.CLN ---
F/U PO INTAKE 70% AVERAGE DIET RX: REGULAR-APPROPRIATE PT RECEIVES ENSURE BID PROVIDES 700KCALS, 40G PROTEIN MOST CURRENT WT 54.8KG CONTINUE TO MONITOR PO INTAKE CLOSELY
[2022-06-23] MEDS: Ondansetron ODT 4 MG TAB.RAPDIS TRANSLINGU (14:35)
--- NOTE | 2022-06-23 15:23 | MHC.CM.PN ---
per rounds pt dc ready unable to locate bed at this time
--- NOTE | 2022-06-23 15:33 | P.PNIM_ITS ---
Subjective Subjective Date of Service: 06/23/22 Interval History: seen and examined this morning follow up for respiratory failure/copd exacerbation no sob, no cough Review of Systems Review of Systems: Yes all other systems are reviewed and are negative Constitutional Constitutional: Denies chills and Denies fever(s) Cardiovascular Cardiovascular: Denies chest pain, Denies palpitations and Denies dyspnea Respiratory Respiratory: Denies cough and Denies dyspnea Endocrine Endocrine: Denies palpitations Physical Exam Vital Signs: Vital Signs: Last Vital Signs Temp 98.0 F 06/23/22 12:00 Pulse 70 06/23/22 12:00 Resp 16 06/23/22 12:00 BP 132/64 06/23/22 12:00 Pulse Ox 93 06/23/22 12:00 O2 Del Method 06/23/22 12:00 O2 Flow Rate 2 06/23/22 12:00 FiO2 45 06/07/22 19:41 Oxygen Flow Rate 70 05/23/22 21:38 BMI result Body Mass Index 16.4 Const: General: cooperative, comfortable, no acute distress, alert and awake Nutritional Appearance: thin Resp: Effort & Inspection: normal respiratory effort, able to speak in complete sentences, no respiratory distress and no use of accessory muscles Cardio: Rate: regular rate and tachycardic Heart sounds: S1 normal heart sound present and S2 normal heart sound present GI: Inspection: No distended Palpation (GI): Soft to palpation and nontender Neuro: Other: grossly nonfocal Extrem: General: Yes no pedal edema Objective Data Active Medications Al Hydroxide/Mg Hydroxide (Magnesium Hydrox/Alum Hydrox 30 Ml Oral.Susp) 15 ml PO Q4H PRN PRN Reason: heartburn Last Admin: 06/18/22 17:10 Dose: 15 ml Documented By: GRAHAM Fluticasone/Vilanterol (Fluticasone/Vilanterol 200/25 Blst.W.Dev) 1 puff INHALE RDAILY [facility] Last Admin: 06/23/22 08:13 Dose: 1 puff Documented By: SRAVAN Guaifenesin/Dextromethorphan (Guaifenesin Dm 100/10/5 Ml 5 Ml Syrup) 10 ml PO TID [facility] Last Admin: 06/23/22 10:54 Dose: Not Given Documented By: SHANEL Non-Admin Reason: Patient Refused Lorazepam (Lorazepam 1 Mg Tablet) 1 mg PO Q8H PRN PRN Reason: Anxiety Methadone HCl (Methadone Hcl 20 Mg/2 Ml Oral.Conc) 30 mg PO DAILY [facility] Last Admin: 06/23/22 09:11 Dose: 30 mg Documented By: SHANEL Multi-Ingred Cream/Lotion/Oil/Oint (Mineral Oil/Petrolatum,White 106 Gm Tube) 1 appl TOPICAL BID [facility]; Protocol Last Admin: 06/23/22 09:13 Dose: 1 appl Documented By: SHANEL Omeprazole (Omeprazole 20 Mg Capsule.Dr) 20 mg PO DAILY@0630 [facility] Last Admin: 06/23/22 05:00 Dose: 20 mg Documented By: NELY Ondansetron HCl (Ondansetron Hcl 4 Mg/2 Ml Vial) 4 mg IVPUSH Q8H PRN PRN Reason: Nausea and Vomiting Last Admin: 06/18/22 19:44 Dose: 4 mg Documented By: JACKELYN Oxycodone HCl (Oxycodone Hcl Immed Release 5 Mg Tablet) 5 mg PO Q6H PRN PRN Reason: Pain, Moderate (Pain Scale 4-6 Paroxetine HCl (Paroxetine Hcl 10 Mg Tablet) 10 mg PO DAILY [facility] Last Admin: 06/23/22 09:11 Dose: 10 mg Documented By: SHANEL Theophylline (Theophylline Anhydrous Er 400 Mg Tab.Er.24h) 200 mg PO BID [facility] Last Admin: 06/23/22 09:11 Dose: 200 mg Documented By: SHANEL Tiotropium Curtice (Tiotropium Curtice 18 Mcg Cap.W.Dev) 1 puff INHALE RDAILY [facility] Last Admin: 06/23/22 08:13 Dose: 1 puff Documented By: SRAVAN Labs CBC & Chem 7: 06/22/22 13:51 06/22/22 05:56 Labs: Laboratory Results - last 24 hr 06/21/22 06/22/22 12:32 14:24 VBG pH 7.44 H VBG pCO2 40 VBG pO2 57 VBG HCO3 27 H VBG O2 Saturation 85.0 VBG Base Excess 3.5 Theophylline 20.4 Assessment and Plan (1) COPD (chronic obstructive pulmonary disease): Status: Acute Plan 56yo M with COPD, chronic hypoxia on 4L O2, HCV, IDU + pulmonary nodules presenting with dyspnea + hypoxia, initially admitted to ICU on BiPAP, stepped- down to [facility] 05/25/22 Acute hypoxic respiratory failure secondary to COPD exacerbation and community- acquired pneumonia. Resolved status post vancomycin, Zosyn, Augmentin and doxycycline Goal O2 saturation 88-92% baseline oxygen requirement 4 L, currently on 2L Continue theophylline, Spiriva, Breo, and updrafts. steroids weaned Seen and evaluated by pulmonology - will need outpatient follow up Sinus tachycardia Likely secondary to multiple updraft treatments, and theophylline changed to zopenex HR seems to be improved, if continues to be elevated can discuss with pulm about decreasing dose of theophylline will check theophylline level echo pending Thrombocytopenia secondary to infection resolved anxiety wean ativan History of substance abuse Continue methadone DVT prophylaxis- will start lovenox now that platelets have improved attending Dr. Palmer Full code Disposition - Plan for STR encourage OOB to chair Continue hospitalization for treatment of transient hypoxia and safe discharge placement Time Spent With Patient Time: Total time managing care of this patient today ____ minutes. Quality Stroke Does the patient have a stroke diagnosis?: No VTE Prior VTE?: No VTE Risk Level:: Medical - moderate - high VTE Device Contraindication: Treatment Not Indicated VTE Drug Contraindication: N/A - Med Ordered
[2022-06-23] MEDS: Enoxaparin Sodium 40 MG/0.4 ML SYRINGE SUBCUT (16:53)
[2022-06-24] VITALS (7 sets, daily range): BP systolic 107–119; BP diastolic 65–74; PULSE 91–104; RESP 17–20; TEMP 36.4–37.1; O2SAT 92–95; BMI 16.0
[2022-06-24] MEDS: Mineral Oil/Petrolatum,White 106 GM Tube 1 APPL TOPICAL ×3 (00:24→19:53)
[2022-06-24] MEDS: oxyCODONE HCl Immed Release 5 MG TABLET PO ×3 (03:06→23:27)
[2022-06-24] MEDS: Omeprazole 20 MG CAPSULE.DR PO (06:16)
[2022-06-24] MEDS: Fluticasone/Vilanterol 200/25 BLST.W.DEV 1 PUFF INHALE (08:20)
--- NOTE | 2022-06-24 09:30 | P.PNPL_ITS ---
Subjective Subjective Date of Service: 06/24/22 Principal diagnosis: COPD EXCARBATION,PNEUMONIA , RESPIRATORY FAILURE , Interval history: THIS 56 YEARS OLD GENTLEMAN HAS BEEN HERE FOR THE LAST FEW WEEKS, HAS BEEN TREATED FOR ACUTE PNEUMONIA CAUSING ACUTE EXACERBATION OF COPD AND ACUTE ON CHRONIC RESPIRATORY FAILURE. THIS PATIENT IS HAS PAST HISTORY OF OPIATES ABUSE AND CURRENTLY IS ON MAINTENANCE METHADONE 30 MG DAILY, WHICH CONTRIBUTES TO HIS HYPOVENTILATION E SPECIALLY AT NIGHT. HE HAS GRADUALLY RECOVERED FROM THE ACUTE EXACERBATION, BECAUSE OF HIS TENDENCY TO HAVE RESPIRATORY FAILURE DUE TO HYPOVENTILATION, THE PLAN WAS TO PLACE HIM IN AN INPATIENT PULMONARY REHAB. PROGRAM. HE HAS SLOWLY RECOVERED AND SEEMS TO BE AT HIS BASELINE AT PRESENT. FROM HIGH-FLOW O2 HAS BEEN WEANED DOWN TO NASAL CANNULA, AT PRESENT REQUIRING 3- 4 L/MINUTE. HE HAS HAD RELATIVE TACHYCARDIA AND SO THE QUESTION ABOUT THEOPHYLLINE HAS BEEN RAISED. I SAW HIM THIS MORNING AND HE CONVERSED WITH ME VERY WELL. HE CLAIMS TO BE FEELING WELL AND DENIES ANY ACUTE DISTRESS OR CHEST PAIN. HIS MENTAL STATUS IS STAYING STABLE. Objective Data Labs CBC & Chem 7: 06/22/22 13:51 06/22/22 05:56 Microbiology Microbiology Results: Microbiology 05/23/22 17:25 Blood - Venous Blood Culture - Final No growth after 5 days. 05/23/22 19:40 Urine clean catch - Urine sarmiento top Urine Culture - Final No growth. 05/23/22 17:30 Blood - Venous Blood Culture - Final Coag negative Staphylococcus Physical Exam Vital Signs: Vital Signs: Last Vital Signs Temp 98.4 F 06/24/22 08:00 Pulse 91 06/24/22 08:23 Resp 20 06/24/22 08:23 BP 119/74 06/24/22 08:00 Pulse Ox 94 06/24/22 08:00 O2 Del Method 06/24/22 08:00 O2 Flow Rate 3 06/24/22 08:00 FiO2 45 06/07/22 19:41 Oxygen Flow Rate 70 05/23/22 21:38 BMI result Body Mass Index 16.0 Const: Other: On examination he is comfortable, Here nose throat examination shows no acute. Infection or thrush Neck examination is normal. Chest examination: Percussion note is resonant breath sounds are distant with prolonged expiratory phase. No active wheezes or rhonchi are heard. Procedures Date of Service Date of Service: 12/30/22 Assessment and Plan Assessment and plan (1) COPD (chronic obstructive pulmonary disease): Status: Acute (2) Acute exacerbation of chronic obstructive airways disease: Status: Acute (3) Respiratory failure with hypoxia and hypercapnia: Status: Acute (4) Tachycardia: Status: Acute Plan This 56 years old gentleman seems to have recovered from his acute exacerbation of COPD and acute respiratory failure. Oxygen requirement has decreased to, 3-4 L/minute with nasal cannula. He is expected to, continue with his chronic respiratory failure , bowel pulmonary status seems to be stable at this time. Sinus tachycardia may be aggravated by small does of theophylline, that was prescribed to treat his chronic hypoventilation. At this time I think we can reduce the does of theophylline to 200 mg once a day, at bedtime. He should be continued on the following : O2 3-4 L/minute to keep O2 sat above 90%. Breo -200/25 1 inhalation daily. Spiriva HandiHaler 1 inhalation daily. Albuterol updraft Q 4-6 hours p.r.n.. Patient should be encouraged to do deep breathing exercises 2 or 3 times a day . Time Spent With Patient Time: Total time managing care of this patient today ____ minutes. Progress Note: Quality Stroke Does the patient have a stroke diagnosis?: No
[2022-06-24] MEDS: PARoxetine HCL 10 MG TABLET PO (09:31)
[2022-06-24] MEDS: methADONE HCl 20 MG/2 ML ORAL.CONC 30 MG PO (09:32)
[2022-06-24] MEDS: Magnesium Hydrox/Alum Hydrox 30 ML ORAL.SUSP 15 ML PO ×2 (09:38→15:12)
[2022-06-24 10:00] LABS: Hematocrit 37.4 % (42.0-52.0); Hemoglobin 12.3 g/dl (14.0-18.0); Mean Corpuscular HGB Conc 32.9 g/dl (31.0-36.0); Mean Corpuscular Hemoglobin 27.4 pg (27.0-33.0); Mean Corpuscular Volume 83.3 fL (80.0-98.0); Mean Platelet Volume 8.5 fL (9.4-12.4); Red Blood Count 4.49 X10*6/uL (4.60-5.80); Red Cell Distribution Width 14.7 % (11.0-16.0); White Blood Count 5.8 X10*3/uL (4.8-10.8)
[2022-06-24 10:04] LABS: Platelet Count 89 X10*3/uL (160-400)
--- NOTE | 2022-06-24 15:21 | P.PNIM_ITS ---
Subjective Subjective Date of Service: 06/24/22 Interval History: seen and examined this morning follow up for copd no sob, no cough some right hip pain Review of Systems Review of Systems: Yes all other systems are reviewed and are negative Constitutional Constitutional: Denies chills and Denies fever(s) Cardiovascular Cardiovascular: Denies chest pain, Denies palpitations and Denies dyspnea Respiratory Respiratory: Denies cough and Denies dyspnea Gastrointestinal Gastrointestinal: Denies abdominal pain Endocrine Endocrine: Denies palpitations Physical Exam Vital Signs: Vital Signs: Last Vital Signs Temp 97.6 F 06/24/22 15:03 Pulse 99 06/24/22 15:03 Resp 17 06/24/22 15:03 BP 112/67 06/24/22 15:03 Pulse Ox 93 06/24/22 15:03 O2 Del Method 06/24/22 15:03 O2 Flow Rate 3 06/24/22 15:03 FiO2 45 06/07/22 19:41 Oxygen Flow Rate 70 05/23/22 21:38 BMI result Body Mass Index 16.0 Const: General: cooperative, comfortable, no acute distress, alert and awake Nutritional Appearance: thin Resp: Effort & Inspection: normal respiratory effort, able to speak in complete sentences, no respiratory distress and no use of accessory muscles Cardio: Rate: regular rate and tachycardic Heart sounds: S1 normal heart sound present and S2 normal heart sound present GI: Inspection: No distended Palpation (GI): Soft to palpation and nontender Neuro: Other: grossly nonfocal Extrem: General: Yes no pedal edema Objective Data Active Medications Al Hydroxide/Mg Hydroxide (Magnesium Hydrox/Alum Hydrox 30 Ml Oral.Susp) 15 ml PO Q4H PRN PRN Reason: heartburn Last Admin: 06/24/22 15:12 Dose: 15 ml Documented By: SD Enoxaparin Sodium (Enoxaparin Sodium 40 Mg/0.4 Ml Syringe) 40 mg SUBCUT Q24H [facility] Last Admin: 06/23/22 16:53 Dose: 40 mg Documented By: FOSTEKKevin Fluticasone/Vilanterol (Fluticasone/Vilanterol 200/25 Blst.W.Dev) 1 puff INHALE RDAILY [facility] Last Admin: 06/24/22 08:20 Dose: 1 puff Documented By: SANAM Guaifenesin/Dextromethorphan (Guaifenesin Dm 100/10/5 Ml 5 Ml Syrup) 10 ml PO TID [facility] Last Admin: 06/24/22 15:13 Dose: Not Given Documented By: SD Non-Admin Reason: Patient Refused Lorazepam (Lorazepam 1 Mg Tablet) 1 mg PO Q8H PRN PRN Reason: Anxiety Methadone HCl (Methadone Hcl 20 Mg/2 Ml Oral.Conc) 30 mg PO DAILY [facility] Last Admin: 06/24/22 09:32 Dose: 30 mg Documented By: SD Multi-Ingred Cream/Lotion/Oil/Oint (Mineral Oil/Petrolatum,White 106 Gm Tube) 1 appl TOPICAL BID [facility]; Protocol Last Admin: 06/24/22 09:31 Dose: 1 appl Documented By: SD Omeprazole (Omeprazole 20 Mg Capsule.Dr) 20 mg PO DAILY@0630 [facility] Last Admin: 06/24/22 06:16 Dose: 20 mg Documented By: HAIDER Ondansetron HCl (Ondansetron Hcl 4 Mg/2 Ml Vial) 4 mg IVPUSH Q8H PRN PRN Reason: Nausea and Vomiting Last Admin: 06/18/22 19:44 Dose: 4 mg Documented By: JACKELYN Oxycodone HCl (Oxycodone Hcl Immed Release 5 Mg Tablet) 5 mg PO Q6H PRN PRN Reason: Pain, Moderate (Pain Scale 4-6 Last Admin: 06/24/22 03:06 Dose: 5 mg Documented By: HAIDER Paroxetine HCl (Paroxetine Hcl 10 Mg Tablet) 10 mg PO DAILY [facility] Last Admin: 06/24/22 09:31 Dose: 10 mg Documented By: SD Theophylline (Theophylline Anhydrous Er 400 Mg Tab.Er.24h) 200 mg PO BEDTIME [facility] Tiotropium Goodman (Tiotropium Goodman 18 Mcg Cap.W.Dev) 1 puff INHALE RDAILY [facility] Last Admin: 06/24/22 08:20 Dose: 1 puff Documented By: SANAM Labs CBC & Chem 7: 06/24/22 09:08 06/22/22 05:56 Labs: Laboratory Results - last 24 hr 06/24/22 09:08 MCV 83.3 MCH 27.4 MCHC 32.9 RDW 14.7 Plt Count 89 L D MPV 8.5 L Absolute Nucleated RBC 0.000 Nucleated RBC % (auto) 0.0 Assessment and Plan (1) Tachycardia: Status: Acute (2) COPD (chronic obstructive pulmonary disease): Status: Acute Plan 56yo M with COPD, chronic hypoxia on 4L O2, HCV, IDU + pulmonary nodules presenting with dyspnea + hypoxia, initially admitted to ICU on BiPAP, stepped- down to [facility] [place] [place] 05/25/22 Acute hypoxic respiratory failure secondary to COPD exacerbation and community- acquired pneumonia. Resolved status post vancomycin, Zosyn, Augmentin and doxycycline Goal O2 saturation 88-92% baseline oxygen requirement 4 L Continue theophylline, Spiriva, Breo, and updrafts. steroids weaned Seen and evaluated by pulmonology - will need outpatient follow up Sinus tachycardia Likely secondary to multiple updraft treatments, and theophylline changed to zopenex theophylline level 20.4, dose of theophylline decreased to once daily echo with preserved LVEF Thrombocytopenia secondary to infection stable anxiety wean ativan Left hip pain xray pending wean oxycodone History of substance abuse Continue methadone DVT prophylaxis- wisam attending Dr. Esqueda Full code Disposition - Plan for STR encourage OOB to chair Continue hospitalization for treatment of transient hypoxia and safe discharge placement Time Spent With Patient Time: Total time managing care of this patient today ____ minutes. Quality Stroke Does the patient have a stroke diagnosis?: No VTE Prior VTE?: No VTE Risk Level:: Medical - moderate - high VTE Device Contraindication: Treatment Not Indicated VTE Drug Contraindication: N/A - Med Ordered
[2022-06-24] MEDS: Enoxaparin Sodium 40 MG/0.4 ML SYRINGE SUBCUT (17:19)
[2022-06-24] MEDS: Docusate Sodium 100 MG CAPSULE 200 MG PO (19:53)
[2022-06-24] MEDS: Theophylline Anhydrous ER 400 MG TAB.ER.24H 200 MG PO (19:53)
[2022-06-24] MEDS: Prochlorperazine Maleate 5 MG TABLET PO (23:27)
[2022-06-25] VITALS (7 sets, daily range): BP systolic 111–120; BP diastolic 67–73; PULSE 70–102; RESP 12–20; TEMP 36.2–37.2; O2SAT 92–96; BMI 16.0
[2022-06-25] MEDS: oxyCODONE HCl Immed Release 5 MG TABLET PO ×3 (05:46→18:15)
[2022-06-25] MEDS: Omeprazole 20 MG CAPSULE.DR PO (06:20)
[2022-06-25] MEDS: Fluticasone/Vilanterol 200/25 BLST.W.DEV 1 PUFF INHALE (08:16)
[2022-06-25] MEDS: methADONE HCl 20 MG/2 ML ORAL.CONC 30 MG PO (09:35)
[2022-06-25] MEDS: PARoxetine HCL 10 MG TABLET PO (09:35)
[2022-06-25] MEDS: guaiFENesin DM 100/10/5 ML 5 ML SYRUP 10 ML PO (09:35)
[2022-06-25] MEDS: Mineral Oil/Petrolatum,White 106 GM Tube 1 APPL TOPICAL ×2 (09:36→19:28)
--- NOTE | 2022-06-25 12:16 | HO.PM.IMPN ---
Subjective Subjective Date of Service: 06/25/22 Interval History: seen and examined this morning follow up for copd exacerbation no sob, no cough Review of Systems Review of Systems: Yes all other systems are reviewed and are negative Constitutional Constitutional: Denies chills and Denies fever(s) Cardiovascular Cardiovascular: Denies chest pain, Denies palpitations and Denies dyspnea Respiratory Respiratory: Denies cough and Denies dyspnea Endocrine Endocrine: Denies palpitations Physical Exam Vital Signs: Vital Signs: Last Vital Signs Temp 97.2 F 06/25/22 08:00 Pulse 102 H 06/25/22 08:19 Resp 20 06/25/22 08:19 BP 113/73 06/25/22 08:00 Pulse Ox 94 06/25/22 08:00 O2 Del Method 06/25/22 08:00 O2 Flow Rate 2 06/25/22 03:19 FiO2 45 06/07/22 19:41 Oxygen Flow Rate 70 05/23/22 21:38 BMI result Body Mass Index 16.0 Const: General: cooperative, comfortable, no acute distress, alert and awake Nutritional Appearance: thin Resp: Effort & Inspection: normal respiratory effort, able to speak in complete sentences, no respiratory distress and no use of accessory muscles Cardio: Rate: regular rate and tachycardic Heart sounds: S1 normal heart sound present and S2 normal heart sound present GI: Inspection: No distended Palpation (GI): Soft to palpation and nontender Neuro: Other: grossly nonfocal Extrem: General: Yes no pedal edema Objective Data Active Medications Al Hydroxide/Mg Hydroxide (Magnesium Hydrox/Alum Hydrox 30 Ml Oral.Susp) 15 ml PO Q4H PRN PRN Reason: heartburn Last Admin: 06/24/22 15:12 Dose: 15 ml Documented By: SD Docusate Sodium (Docusate Sodium 100 Mg Capsule) 200 mg PO BEDTIME [facility] [place] Last Admin: 06/24/22 19:53 Dose: 200 mg Documented By: WILLIAM Enoxaparin Sodium (Enoxaparin Sodium 40 Mg/0.4 Ml Syringe) 40 mg SUBCUT Q24H [facility] [place] Last Admin: 06/24/22 17:19 Dose: 40 mg Documented By: SD Fluticasone/Vilanterol (Fluticasone/Vilanterol 200/25 Blst.W.Dev) 1 puff INHALE RDAILY [facility] [place] Last Admin: 06/25/22 08:16 Dose: 1 puff Documented By: SRAVAN Guaifenesin/Dextromethorphan (Guaifenesin Dm 100/10/5 Ml 5 Ml Syrup) 10 ml PO TID [facility] [place] Last Admin: 06/25/22 09:35 Dose: 10 ml Documented By: FUNMILAYO Lorazepam (Lorazepam 1 Mg Tablet) 1 mg PO Q8H PRN PRN Reason: Anxiety Methadone HCl (Methadone Hcl 20 Mg/2 Ml Oral.Conc) 30 mg PO DAILY [facility] [place] Last Admin: 06/25/22 09:35 Dose: 30 mg Documented By: FUNMILAYO Multi-Ingred Cream/Lotion/Oil/Oint (Mineral Oil/Petrolatum,White 106 Gm Tube) 1 appl TOPICAL BID [facility] [place]; Protocol Last Admin: 06/25/22 09:36 Dose: 1 appl Documented By: FUNMILAYO Omeprazole (Omeprazole 20 Mg Capsule.Dr) 20 mg PO DAILY@0630 [facility] [place] Last Admin: 06/25/22 06:20 Dose: 20 mg Documented By: WILLIAM Ondansetron HCl (Ondansetron Hcl 4 Mg/2 Ml Vial) 4 mg IVPUSH Q8H PRN PRN Reason: Nausea and Vomiting Last Admin: 06/18/22 19:44 Dose: 4 mg Documented By: JACKELYN Oxycodone HCl (Oxycodone Hcl Immed Release 5 Mg Tablet) 5 mg PO Q6H PRN PRN Reason: Pain, Moderate (Pain Scale 4-6 Last Admin: 06/25/22 11:33 Dose: 5 mg Documented By: EMMA Paroxetine HCl (Paroxetine Hcl 10 Mg Tablet) 10 mg PO DAILY [facility] [place] Last Admin: 06/25/22 09:35 Dose: 10 mg Documented By: FUNMILAYO Theophylline (Theophylline Anhydrous Er 400 Mg Tab.Er.24h) 200 mg PO BEDTIME [facility] [place] Last Admin: 06/24/22 19:53 Dose: 200 mg Documented By: WILLIAM Tiotropium Andrews (Tiotropium Andrews 18 Mcg Cap.W.Dev) 1 puff INHALE RDAILY [facility] [place] Last Admin: 06/25/22 08:16 Dose: 1 puff Documented By: HO.BRESNE Labs CBC & Chem 7: 06/24/22 09:08 06/22/22 05:56 Assessment and Plan (1) COPD (chronic obstructive pulmonary disease): Status: Acute Plan 56yo M with COPD, chronic hypoxia on 4L O2, HCV, IDU + pulmonary nodules presenting with dyspnea + hypoxia, initially admitted to ICU on BiPAP, stepped-down to [facility] [place] 05/25/22 Acute hypoxic respiratory failure secondary to COPD exacerbation and community-acquired pneumonia. Resolved status post vancomycin, Zosyn, Augmentin and doxycycline Goal O2 saturation 88-92% baseline oxygen requirement 4 L Continue theophylline, Spiriva, Breo, and updrafts. steroids weaned Seen and evaluated by pulmonology - will need outpatient follow up Sinus tachycardia Likely secondary to multiple updraft treatments, and theophylline changed to zopenex theophylline level 20.4, dose of theophylline decreased to once daily echo with preserved LVEF Thrombocytopenia secondary to infection stable anxiety wean ativan Left hip pain xray with no acute changes wean oxycodone History of substance abuse Continue methadone DVT prophylaxis- wisam attending Dr. Lozano Full code Disposition - Plan for STR encourage OOB to chair Continue hospitalization for safe discharge placement Time Spent With Patient Time: Total time managing care of this patient today ____ minutes. Quality Stroke Does the patient have a stroke diagnosis?: No VTE Prior VTE?: No VTE Risk Level:: Medical - moderate - high VTE Device Contraindication: Treatment Not Indicated VTE Drug Contraindication: N/A - Med Ordered
[2022-06-25] MEDS: Enoxaparin Sodium 40 MG/0.4 ML SYRINGE SUBCUT (18:13)
[2022-06-25] MEDS: Theophylline Anhydrous ER 400 MG TAB.ER.24H 200 MG PO (19:27)
[2022-06-26] VITALS (7 sets, daily range): BP systolic 97–121; BP diastolic 59–78; PULSE 86–109; RESP 16–20; TEMP 36.3–37.3; O2SAT 90–95; BMI 16.5
[2022-06-26] MEDS: oxyCODONE HCl Immed Release 5 MG TABLET PO ×3 (02:42→19:36)
[2022-06-26] MEDS: Omeprazole 20 MG CAPSULE.DR PO (05:14)
[2022-06-26] MEDS: PARoxetine HCL 10 MG TABLET PO (09:24)
[2022-06-26] MEDS: methADONE HCl 20 MG/2 ML ORAL.CONC 30 MG PO (09:24)
[2022-06-26] MEDS: Fluticasone/Vilanterol 200/25 BLST.W.DEV 1 PUFF INHALE (09:32)
--- NOTE | 2022-06-26 10:31 | P.PNIM_ITS ---
Subjective Subjective Date of Service: 06/26/22 Interval History: seen and examined this morning follow up for copd exacerbation no sob, no cough Review of Systems Review of Systems: Yes all other systems are reviewed and are negative Constitutional Constitutional: Denies chills and Denies fever(s) Cardiovascular Cardiovascular: Denies chest pain, Denies palpitations and Denies dyspnea Respiratory Respiratory: Denies cough and Denies dyspnea Endocrine Endocrine: Denies palpitations Physical Exam Vital Signs: Vital Signs: Last Vital Signs Temp 97.5 F 06/26/22 07:12 Pulse 102 H 06/26/22 09:35 Resp 18 06/26/22 09:35 BP 121/66 06/26/22 07:12 Pulse Ox 94 06/26/22 07:12 O2 Del Method 06/26/22 07:12 O2 Flow Rate 2 06/26/22 07:12 FiO2 45 06/07/22 19:41 Oxygen Flow Rate 70 05/23/22 21:38 BMI result Body Mass Index 16.5 Appearing in no acute distress lung sounds are clear to auscultation heart regular rate rhythm, clear S1, S2 positive bowel sounds, abdomen is soft, nontender neuro patient is alert x3, no focal deficits Objective Data Active Medications Al Hydroxide/Mg Hydroxide (Magnesium Hydrox/Alum Hydrox 30 Ml Oral.Susp) 15 ml PO Q4H PRN PRN Reason: heartburn Last Admin: 06/24/22 15:12 Dose: 15 ml Documented By: SD Docusate Sodium (Docusate Sodium 100 Mg Capsule) 200 mg PO BEDTIME [facility] Last Admin: 06/25/22 19:29 Dose: Not Given Documented By: BORIS Non-Admin Reason: Patient Refused Enoxaparin Sodium (Enoxaparin Sodium 40 Mg/0.4 Ml Syringe) 40 mg SUBCUT Q24H [facility] Last Admin: 06/25/22 18:13 Dose: 40 mg Documented By: BORIS Fluticasone/Vilanterol (Fluticasone/Vilanterol 200/25 Blst.W.Dev) 1 puff INHALE RDAILY [facility] Last Admin: 06/26/22 09:32 Dose: 1 puff Documented By: ISIDRA Guaifenesin/Dextromethorphan (Guaifenesin Dm 100/10/5 Ml 5 Ml Syrup) 10 ml PO TID PRN PRN Reason: cough Lorazepam (Lorazepam 1 Mg Tablet) 1 mg PO Q8H PRN PRN Reason: Anxiety Methadone HCl (Methadone Hcl 20 Mg/2 Ml Oral.Conc) 30 mg PO DAILY [facility] Last Admin: 06/26/22 09:24 Dose: 30 mg Documented By: ALEJANDRA Multi-Ingred Cream/Lotion/Oil/Oint (Mineral Oil/Petrolatum,White 106 Gm Tube) 1 appl TOPICAL BID [facility]; Protocol Last Admin: 06/26/22 09:27 Dose: Not Given Documented By: ALEJANDRA Non-Admin Reason: Patient Refused Omeprazole (Omeprazole 20 Mg Capsule.Dr) 20 mg PO DAILY@0630 [facility] Last Admin: 06/26/22 05:14 Dose: 20 mg Documented By: EMMA Ondansetron HCl (Ondansetron Hcl 4 Mg/2 Ml Vial) 4 mg IVPUSH Q8H PRN PRN Reason: Nausea and Vomiting Last Admin: 06/18/22 19:44 Dose: 4 mg Documented By: JACKELYN Oxycodone HCl (Oxycodone Hcl Immed Release 5 Mg Tablet) 5 mg PO Q6H PRN PRN Reason: Pain, Moderate (Pain Scale 4-6 Last Admin: 06/26/22 02:42 Dose: 5 mg Documented By: HECTOR Paroxetine HCl (Paroxetine Hcl 10 Mg Tablet) 10 mg PO DAILY [facility] Last Admin: 06/26/22 09:24 Dose: 10 mg Documented By: ALEJANDRA Theophylline (Theophylline Anhydrous Er 400 Mg Tab.Er.24h) 200 mg PO BEDTIME [facility] Last Admin: 06/25/22 19:27 Dose: 200 mg Documented By: BORIS Tiotropium [place] (Tiotropium [place] 18 Mcg Cap.W.Dev) 1 puff INHALE RDAILY [facility] Last Admin: 06/26/22 09:32 Dose: 1 puff Documented By: ISIDRA Labs CBC & Chem 7: 06/24/22 09:08 06/22/22 05:56 Assessment and Plan (1) COPD (chronic obstructive pulmonary disease): Status: Acute Plan 56yo M with COPD, chronic hypoxia on 4L O2, HCV, IDU + pulmonary nodules presenting with dyspnea + hypoxia, initially admitted to ICU on BiPAP, [place] [facility] [place] Acute hypoxic respiratory failure secondary to COPD exacerbation and community- acquired pneumonia. Resolved status post vancomycin, Zosyn, Augmentin and doxycycline Goal O2 saturation 88-92% baseline oxygen requirement 4 L Continue theophylline, Spiriva, Breo, and updrafts. steroids weaned Seen and evaluated by pulmonology - will need outpatient follow up Sinus tachycardia Likely secondary to multiple updraft treatments, and theophylline changed to zopenex theophylline level 20.4, dose of theophylline decreased to once daily echo with preserved LVEF Thrombocytopenia secondary to infection stable anxiety wean ativan Left hip pain xray with no acute changes wean oxycodone History of substance abuse Continue methadone DVT prophylaxis- wisam attending Dr. De La Rosa Full code Disposition - Plan for STR encourage OOB to chair Continue hospitalization for safe discharge placement Time Spent With Patient Time: Total time managing care of this patient today ____ minutes. Quality Stroke Does the patient have a stroke diagnosis?: No VTE Prior VTE?: No VTE Risk Level:: Medical - moderate - high VTE Device Contraindication: Treatment Not Indicated VTE Drug Contraindication: N/A - Med Ordered
--- NOTE | 2022-06-26 14:40 | MHC.CLN ---
F/U PO INTAKE 70% AVERAGE DIET RX: REGULAR-APPROPRIATE PT RECEIVES ENSURE BID PROVIDES 700KCALS, 40G PROTEIN MOST CURRENT WT 55.4KG CONTINUE TO MONITOR PO INTAKE CLOSELY
[2022-06-26] MEDS: Enoxaparin Sodium 40 MG/0.4 ML SYRINGE SUBCUT (17:18)
[2022-06-26] MEDS: Theophylline Anhydrous ER 400 MG TAB.ER.24H 200 MG PO (21:08)
[2022-06-26] MEDS: Docusate Sodium 100 MG CAPSULE 200 MG PO (21:09)
[2022-06-27] MEDS: Magnesium Hydrox/Alum Hydrox 30 ML ORAL.SUSP 15 ML PO (00:28)
[2022-06-27] MEDS: oxyCODONE HCl Immed Release 5 MG TABLET PO ×3 (01:45→20:30)
[2022-06-27 03:38] VITALS: BP 120/78; PULSE 54; RESP 20; TEMP 37.2; O2SAT 94
[2022-06-27 05:42] VITALS: BMI 16.5
[2022-06-27] MEDS: Omeprazole 20 MG CAPSULE.DR PO (06:15)
[2022-06-27 07:24] VITALS: BP 103/58; PULSE 94; RESP 18; TEMP 36.4; O2SAT 88
[2022-06-27] MEDS: Fluticasone/Vilanterol 200/25 BLST.W.DEV 1 PUFF INHALE (08:02)
[2022-06-27 08:03] VITALS: PULSE 94; RESP 18; O2SAT 95
[2022-06-27] MEDS: PARoxetine HCL 10 MG TABLET PO (08:26)
[2022-06-27] MEDS: methADONE HCl 20 MG/2 ML ORAL.CONC 30 MG PO (08:26)
[2022-06-27 11:20] VITALS: BP 119/76; PULSE 100; RESP 18; TEMP 36.3; O2SAT 92
--- NOTE | 2022-06-27 11:55 | HO.PM.IMPN ---
Subjective Subjective Date of Service: 06/27/22 Interval History: seen and examined this morning follow up for copd exacerbation no sob, no cough Review of Systems Review of Systems: Yes all other systems are reviewed and are negative Constitutional Constitutional: Denies chills and Denies fever(s) Cardiovascular Cardiovascular: Denies chest pain, Denies palpitations and Denies dyspnea Respiratory Respiratory: Denies cough and Denies dyspnea Endocrine Endocrine: Denies palpitations Physical Exam Vital Signs: Vital Signs: Last Vital Signs Temp 97.3 F 06/27/22 11:20 Pulse 100 06/27/22 11:20 Resp 18 06/27/22 11:20 BP 119/76 06/27/22 11:20 Pulse Ox 92 06/27/22 11:20 O2 Del Method 06/27/22 11:20 O2 Flow Rate 3 06/27/22 11:20 FiO2 45 06/07/22 19:41 Oxygen Flow Rate 70 05/23/22 21:38 BMI result Body Mass Index 16.5 Appearing in no acute distress lung sounds are clear to auscultation heart regular rate rhythm, clear S1, S2 positive bowel sounds, abdomen is soft, nontender neuro patient is alert x3, no focal deficits Objective Data Active Medications Al Hydroxide/Mg Hydroxide (Magnesium Hydrox/Alum Hydrox 30 Ml Oral.Susp) 15 ml PO Q4H PRN PRN Reason: heartburn Last Admin: 06/27/22 00:28 Dose: 15 ml Documented By: JOSE ALBERTO Docusate Sodium (Docusate Sodium 100 Mg Capsule) 200 mg PO BEDTIME [facility] Last Admin: 06/26/22 21:09 Dose: 100 mg Documented By: AIDEN Comments: Patient refused 100mg Enoxaparin Sodium (Enoxaparin Sodium 40 Mg/0.4 Ml Syringe) 40 mg SUBCUT Q24H [facility] Last Admin: 06/26/22 17:18 Dose: 40 mg Documented By: AIDEN Fluticasone/Vilanterol (Fluticasone/Vilanterol 200/25 Blst.W.Dev) 1 puff INHALE RDAILY [facility] Last Admin: 06/27/22 08:02 Dose: 1 puff Documented By: UNIQUE Guaifenesin/Dextromethorphan (Guaifenesin Dm 100/10/5 Ml 5 Ml Syrup) 10 ml PO TID PRN PRN Reason: cough Lorazepam (Lorazepam 1 Mg Tablet) 1 mg PO Q8H PRN PRN Reason: Anxiety Methadone HCl (Methadone Hcl 20 Mg/2 Ml Oral.Conc) 30 mg PO DAILY [facility] Last Admin: 06/27/22 08:26 Dose: 30 mg Documented By: JOHN Multi-Ingred Cream/Lotion/Oil/Oint (Mineral Oil/Petrolatum,White 106 Gm Tube) 1 appl TOPICAL BID [facility]; Protocol Last Admin: 06/27/22 08:30 Dose: Not Given Documented By: JOHN Non-Admin Reason: Patient Refused Omeprazole (Omeprazole 20 Mg Capsule.Dr) 20 mg PO DAILY@0630 [facility] Last Admin: 06/27/22 06:15 Dose: 20 mg Documented By: JOSE ALBERTO Ondansetron HCl (Ondansetron Hcl 4 Mg/2 Ml Vial) 4 mg IVPUSH Q8H PRN PRN Reason: Nausea and Vomiting Last Admin: 06/18/22 19:44 Dose: 4 mg Documented By: JACKELYN Oxycodone HCl (Oxycodone Hcl Immed Release 5 Mg Tablet) 5 mg PO Q6H PRN PRN Reason: Pain, Moderate (Pain Scale 4-6 Last Admin: 06/27/22 01:45 Dose: 5 mg Documented By: JOSE ALBERTO Paroxetine HCl (Paroxetine Hcl 10 Mg Tablet) 10 mg PO DAILY [facility] Last Admin: 06/27/22 08:26 Dose: 10 mg Documented By: JOHN Theophylline (Theophylline Anhydrous Er 400 Mg Tab.Er.24h) 200 mg PO BEDTIME [facility] Last Admin: 06/26/22 21:08 Dose: 200 mg Documented By: AIDEN Comments: 200 Tiotropium [place] (Tiotropium [place] 18 Mcg Cap.W.Dev) 1 puff INHALE RDAILY [facility] Last Admin: 06/27/22 08:44 Dose: 1 puff Documented By: UNIQUE Labs CBC & Chem 7: 06/24/22 09:08 06/22/22 05:56 Assessment and Plan (1) COPD (chronic obstructive pulmonary disease): Status: Acute Plan 56yo M with COPD, chronic hypoxia on 4L O2, HCV, IDU + pulmonary nodules presenting with dyspnea + hypoxia, initially admitted to ICU on BiPAP, [place] [facility] [place] Acute hypoxic respiratory failure secondary to COPD exacerbation and community-acquired pneumonia. Resolved status post vancomycin, Zosyn, Augmentin and doxycycline Goal O2 saturation 88-92% baseline oxygen requirement 4 L Continue theophylline, Spiriva, Breo, and updrafts. steroids weaned Seen and evaluated by pulmonology - will need outpatient follow up Sinus tachycardia. resolved Likely secondary to multiple updraft treatments, and theophylline changed to zopenex theophylline level 20.4, dose of theophylline decreased to once daily echo with preserved LVEF Thrombocytopenia secondary to infection stable anxiety wean ativan Left hip pain xray with no acute changes wean oxycodone History of substance abuse Continue methadone DVT prophylaxis- wisam attending Dr. Palmer Full code Disposition - Plan for STR encourage OOB to chair Continue hospitalization for safe discharge placement Time Spent With Patient Time: Total time managing care of this patient today ____ minutes. Quality Stroke Does the patient have a stroke diagnosis?: No VTE Prior VTE?: No VTE Risk Level:: Medical - moderate - high VTE Device Contraindication: Treatment Not Indicated VTE Drug Contraindication: N/A - Med Ordered
[2022-06-27 15:53] VITALS: BP 112/70; PULSE 102; RESP 18; TEMP 37.1; O2SAT 90
[2022-06-27 19:51] VITALS: BP 112/78; PULSE 112; RESP 19; TEMP 37; O2SAT 90
[2022-06-27] MEDS: Theophylline Anhydrous ER 400 MG TAB.ER.24H 200 MG PO (20:30)
[2022-06-28] VITALS (9 sets, daily range): BP systolic 113–120; BP diastolic 68–73; PULSE 90–112; RESP 12–20; TEMP 36.2–37.1; O2SAT 87–93; BMI 16.2; BMI 18.7
[2022-06-28] MEDS: diphenhydrAMINE HCL 25 MG CAPSULE PO ×2 (01:24→14:10)
[2022-06-28] MEDS: Mineral Oil/Petrolatum,White 106 GM Tube 1 APPL TOPICAL ×3 (01:26→20:07)
--- NOTE | 2022-06-28 01:28 | PC.NURSE ---
06/28/2022 @0119 pt complaining of an itchy rash on both legs applied topical medication unscheduled as pt refused @2100. He expressed it was very itchy and requested Medication for itching; notified ordered Benadryl with good effect.
[2022-06-28] MEDS: oxyCODONE HCl Immed Release 5 MG TABLET PO ×3 (02:46→21:03)
[2022-06-28] MEDS: Omeprazole 20 MG CAPSULE.DR PO (05:34)
[2022-06-28] MEDS: methADONE HCl 20 MG/2 ML ORAL.CONC 30 MG PO (06:56)
[2022-06-28] MEDS: PARoxetine HCL 10 MG TABLET PO (06:57)
[2022-06-28] MEDS: Fluticasone/Vilanterol 200/25 BLST.W.DEV 1 PUFF INHALE (07:49)
[2022-06-28] MEDS: Magnesium Hydrox/Alum Hydrox 30 ML ORAL.SUSP 15 ML PO (09:52)
--- NOTE | 2022-06-28 10:58 | MHC.CLN ---
F/U PO INTAKE 75-100% DIET RX: REGULAR-APPROPRIATE PT RECEIVES ENSURE BID PROVIDES 700KCALS, 40G PROTEIN MOST CURRENT WT 54.2KG; HT 67 PER PT CORRECTED IN [facility] CONTINUE TO MONITOR PO INTAKE CLOSELY
--- NOTE | 2022-06-28 13:16 | MHC.CM.PN ---
SNF referrals that accept Methadone have been updated and cM continues to follow.
--- NOTE | 2022-06-28 13:43 | HO.PM.IMPN ---
Subjective Subjective Date of Service: 06/28/22 Interval History: seen and examined this morning follow up for copd exacerbation no sob, no cough Review of Systems Review of Systems: Yes all other systems are reviewed and are negative Constitutional Constitutional: Denies chills and Denies fever(s) Cardiovascular Cardiovascular: Denies chest pain, Denies palpitations and Denies dyspnea Respiratory Respiratory: Denies cough and Denies dyspnea Endocrine Endocrine: Denies palpitations Physical Exam Vital Signs: Vital Signs: Last Vital Signs Temp 97.8 F 06/28/22 11:56 Pulse 112 H 06/28/22 11:56 Resp 19 06/28/22 11:56 BP 118/70 06/28/22 11:56 Pulse Ox 90 L 06/28/22 11:56 O2 Del Method 06/28/22 11:56 O2 Flow Rate 3.5 06/28/22 11:56 FiO2 45 06/07/22 19:41 Oxygen Flow Rate 70 05/23/22 21:38 BMI result Body Mass Index 18.7 Appearing in no acute distress lung sounds are clear to auscultation heart regular rate rhythm, clear S1, S2 positive bowel sounds, abdomen is soft, nontender neuro patient is alert x3, no focal deficits Objective Data Active Medications Al Hydroxide/Mg Hydroxide (Magnesium Hydrox/Alum Hydrox 30 Ml Oral.Susp) 15 ml PO Q4H PRN PRN Reason: heartburn Last Admin: 06/28/22 09:52 Dose: 15 ml Documented By: TUNG Diphenhydramine HCl (Diphenhydramine Hcl 50 Mg/Ml Vial) 25 mg IVPUSH Q6H PRN PRN Reason: Itching Docusate Sodium (Docusate Sodium 100 Mg Capsule) 200 mg PO BEDTIME [facility] Last Admin: 06/27/22 20:32 Dose: Not Given Documented By: TUNG Non-Admin Reason: Patient Refused Enoxaparin Sodium (Enoxaparin Sodium 40 Mg/0.4 Ml Syringe) 40 mg SUBCUT Q24H [facility] Last Admin: 06/27/22 18:24 Dose: Not Given Documented By: JOHN Non-Admin Reason: Patient Refused Fluticasone/Vilanterol (Fluticasone/Vilanterol 200/25 Blst.W.Dev) 1 puff INHALE RDAILY [facility] Last Admin: 06/28/22 07:49 Dose: 1 puff Documented By: SRAVAN Guaifenesin/Dextromethorphan (Guaifenesin Dm 100/10/5 Ml 5 Ml Syrup) 10 ml PO TID PRN PRN Reason: cough Methadone HCl (Methadone Hcl 20 Mg/2 Ml Oral.Conc) 30 mg PO DAILY [facility] Last Admin: 06/28/22 06:56 Dose: 30 mg Documented By: TUNG Multi-Ingred Cream/Lotion/Oil/Oint (Mineral Oil/Petrolatum,White 106 Gm Tube) 1 appl TOPICAL BID [facility]; Protocol Last Admin: 06/28/22 01:26 Dose: 1 appl Documented By: TUNG Omeprazole (Omeprazole 20 Mg Capsule.Dr) 20 mg PO DAILY@0630 [facility] Last Admin: 06/28/22 05:34 Dose: 20 mg Documented By: TUNG Ondansetron HCl (Ondansetron Hcl 4 Mg/2 Ml Vial) 4 mg IVPUSH Q8H PRN PRN Reason: Nausea and Vomiting Last Admin: 06/18/22 19:44 Dose: 4 mg Documented By: JACKELYN Oxycodone HCl (Oxycodone Hcl Immed Release 5 Mg Tablet) 5 mg PO Q6H PRN PRN Reason: Pain, Moderate (Pain Scale 4-6 Last Admin: 06/28/22 09:51 Dose: 5 mg Documented By: TUNG Paroxetine HCl (Paroxetine Hcl 10 Mg Tablet) 10 mg PO DAILY [facility] Last Admin: 06/28/22 06:57 Dose: 10 mg Documented By: TUNG Theophylline (Theophylline Anhydrous Er 400 Mg Tab.Er.24h) 200 mg PO BEDTIME [facility] Last Admin: 06/27/22 20:30 Dose: 200 mg Documented By: TUNG Tiotropium [place] (Tiotropium [place] 18 Mcg Cap.W.Dev) 1 puff INHALE RDAILY [facility] Last Admin: 06/28/22 07:49 Dose: 1 puff Documented By: SRAVAN Labs CBC & Chem 7: 06/24/22 09:08 06/22/22 05:56 Assessment and Plan (1) COPD (chronic obstructive pulmonary disease): Status: Acute Plan 56yo M with COPD, chronic hypoxia on 4L O2, HCV, IDU + pulmonary nodules presenting with dyspnea + hypoxia, initially admitted to ICU on BiPAP, [place] [facility] [place] Acute hypoxic respiratory failure secondary to COPD exacerbation and community-acquired pneumonia. Resolved status post vancomycin, Zosyn, Augmentin and doxycycline Goal O2 saturation 88-92% baseline oxygen requirement 4 L Continue theophylline, Spiriva, Breo, and updrafts. steroids weaned Seen and evaluated by pulmonology - will need outpatient follow up Sinus tachycardia. resolved Likely secondary to multiple updraft treatments, and theophylline changed to zopenex theophylline level 20.4, dose of theophylline decreased to once daily echo with preserved LVEF Thrombocytopenia secondary to infection stable anxiety wean ativan Left hip pain xray with no acute changes weaned oxycodone History of substance abuse Continue methadone DVT prophylaxis- dilshad attending Dr. Palmer Full code Disposition - Plan for STR, family unable to care for him at home encourage OOB to chair and ambulation Continue hospitalization for safe discharge placement Time Spent With Patient Time: Total time managing care of this patient today ____ minutes. Quality Stroke Does the patient have a stroke diagnosis?: No VTE Prior VTE?: No VTE Risk Level:: Medical - moderate - high VTE Device Contraindication: Treatment Not Indicated VTE Drug Contraindication: N/A - Med Ordered
[2022-06-28] MEDS: Theophylline Anhydrous ER 400 MG TAB.ER.24H 200 MG PO (20:06)
[2022-06-28] MEDS: Enoxaparin Sodium 40 MG/0.4 ML SYRINGE SUBCUT (20:07)
[2022-06-29] VITALS (7 sets, daily range): BP systolic 96–124; BP diastolic 64–78; PULSE 96–105; RESP 18–22; TEMP 36.4–37.5; O2SAT 90–95; BMI 18.6
[2022-06-29] MEDS: oxyCODONE HCl Immed Release 5 MG TABLET PO ×3 (03:39→20:45)
[2022-06-29] MEDS: Omeprazole 20 MG CAPSULE.DR PO (05:02)
[2022-06-29] MEDS: Magnesium Hydrox/Alum Hydrox 30 ML ORAL.SUSP 15 ML PO ×2 (05:02→20:48)
[2022-06-29] MEDS: Fluticasone/Vilanterol 200/25 BLST.W.DEV 1 PUFF INHALE (07:51)
[2022-06-29] MEDS: methADONE HCl 20 MG/2 ML ORAL.CONC 30 MG PO (08:01)
[2022-06-29] MEDS: Mineral Oil/Petrolatum,White 106 GM Tube 1 APPL TOPICAL ×2 (08:02→19:02)
--- NOTE | 2022-06-29 09:32 | P.PNIM_ITS ---
Subjective Subjective Date of Service: 06/29/22 Interval History: seen and examined this morning follow up for copd exacerbation no sob, no cough pruritic rash to his legs Review of Systems Review of Systems: Yes all other systems are reviewed and are negative Constitutional Constitutional: Denies chills and Denies fever(s) Cardiovascular Cardiovascular: Denies chest pain, Denies palpitations and Denies dyspnea Respiratory Respiratory: Denies cough and Denies dyspnea Endocrine Endocrine: Denies palpitations Physical Exam Vital Signs: Vital Signs: Last Vital Signs Temp 98.7 F 06/29/22 07:48 Pulse 101 H 06/29/22 07:52 Resp 18 06/29/22 07:52 BP 113/69 06/29/22 07:48 Pulse Ox 90 L 06/29/22 07:48 O2 Del Method 06/29/22 07:48 O2 Flow Rate 3 06/29/22 07:48 FiO2 45 06/07/22 19:41 Oxygen Flow Rate 70 05/23/22 21:38 BMI result Body Mass Index 18.6 Appearing in no acute distress lung sounds are clear to auscultation heart regular rate rhythm, clear S1, S2 positive bowel sounds, abdomen is soft, nontender neuro patient is alert x3, no focal deficits Pruritic macular papular rash to bilateral lower extremities Objective Data Active Medications Al Hydroxide/Mg Hydroxide (Magnesium Hydrox/Alum Hydrox 30 Ml Oral.Susp) 15 ml PO Q4H PRN PRN Reason: heartburn Last Admin: 06/29/22 05:02 Dose: 15 ml Documented By: JACKELYN Comments: Docusate Sodium (Docusate Sodium 100 Mg Capsule) 200 mg PO BEDTIME [facility] Last Admin: 06/28/22 20:07 Dose: Not Given Documented By: FIDEL Non-Admin Reason: Patient Refused Enoxaparin Sodium (Enoxaparin Sodium 40 Mg/0.4 Ml Syringe) 40 mg SUBCUT Q24H [facility] Last Admin: 06/28/22 20:07 Dose: 40 mg Documented By: FIDEL Fluticasone/Vilanterol (Fluticasone/Vilanterol 200/25 Blst.W.Dev) 1 puff INHALE RDAILY [facility] Last Admin: 06/29/22 07:51 Dose: 1 puff Documented By: OBED Guaifenesin/Dextromethorphan (Guaifenesin Dm 100/10/5 Ml 5 Ml Syrup) 10 ml PO TID PRN PRN Reason: cough Methadone HCl (Methadone Hcl 20 Mg/2 Ml Oral.Conc) 30 mg PO DAILY [facility] Last Admin: 06/29/22 08:01 Dose: 30 mg Documented By: JOSE Multi-Ingred Cream/Lotion/Oil/Oint (Mineral Oil/Petrolatum,White 106 Gm Tube) 1 appl TOPICAL BID [facility]; Protocol Last Admin: 06/29/22 08:02 Dose: 1 appl Documented By: JOSE Omeprazole (Omeprazole 20 Mg Capsule.Dr) 20 mg PO DAILY@0630 [facility] Last Admin: 06/29/22 05:02 Dose: 20 mg Documented By: JACKELYN Ondansetron HCl (Ondansetron Hcl 4 Mg/2 Ml Vial) 4 mg IVPUSH Q8H PRN PRN Reason: Nausea and Vomiting Last Admin: 06/18/22 19:44 Dose: 4 mg Documented By: JACKELYN Oxycodone HCl (Oxycodone Hcl Immed Release 5 Mg Tablet) 5 mg PO Q6H PRN PRN Reason: Pain, Severe (Pain Scale 7-10) Last Admin: 06/29/22 03:39 Dose: 5 mg Documented By: JACKELYN Paroxetine HCl (Paroxetine Hcl 10 Mg Tablet) 10 mg PO DAILY [facility] Last Admin: 06/28/22 06:57 Dose: 10 mg Documented By: TUNG Theophylline (Theophylline Anhydrous Er 400 Mg Tab.Er.24h) 200 mg PO BEDTIME [facility] Last Admin: 06/28/22 20:06 Dose: 200 mg Documented By: FIDEL Tiotropium [place] (Tiotropium [place] 18 Mcg Cap.W.Dev) 1 puff INHALE RDAILY [facility] Last Admin: 06/29/22 07:51 Dose: 1 puff Documented By: OBED Labs CBC & Chem 7: 06/24/22 09:08 06/22/22 05:56 Assessment and Plan (1) COPD (chronic obstructive pulmonary disease): Status: Acute Plan 56yo M with COPD, chronic hypoxia on 4L O2, HCV, IDU + pulmonary nodules presenting with dyspnea + hypoxia, initially admitted to ICU on BiPAP, [place] [facility] [place] Macular papular rash to bilateral lower extremities Unknown origin Patient reports he has had this previously in the past Hydrocortisone ointment b.i.d. Benadryl as needed Acute hypoxic respiratory failure secondary to COPD exacerbation and community- acquired pneumonia. Resolved status post vancomycin, Zosyn, Augmentin and doxycycline Goal O2 saturation 88-92% baseline oxygen requirement 4 L Continue theophylline, Spiriva, Breo, and updrafts. steroids weaned Seen and evaluated by pulmonology - will need outpatient follow up Sinus tachycardia. resolved Likely secondary to multiple updraft treatments, and theophylline changed to zopenex theophylline level 20.4, dose of theophylline decreased to once daily echo with preserved LVEF Thrombocytopenia secondary to infection stable Anxiety supportive care Left hip pain xray with no acute changes weaned off oxycodone History of substance abuse Continue [facility] Full code Disposition - Plan for STR, family unable to care for him at home encourage OOB to chair and ambulation Continue hospitalization for safe discharge placement Time Spent With Patient Time: Total time managing care of this patient today ____ minutes. Quality Stroke Does the patient have a stroke diagnosis?: No VTE Prior VTE?: No VTE Risk Level:: Medical - moderate - high VTE Device Contraindication: Treatment Not Indicated VTE Drug Contraindication: N/A - Med Ordered
[2022-06-29] MEDS: diphenhydrAMINE HCL 25 MG CAPSULE PO ×2 (10:02→20:48)
[2022-06-29] MEDS: PARoxetine HCL 10 MG TABLET PO (10:02)
[2022-06-29] MEDS: Hydrocortisone 1 % Ointment 28.35 GM TUBE 1 APPL TOPICAL ×2 (12:14→19:02)
[2022-06-29] MEDS: Enoxaparin Sodium 40 MG/0.4 ML SYRINGE SUBCUT (16:50)
[2022-06-29] MEDS: Docusate Sodium 100 MG CAPSULE 200 MG PO (19:03)
[2022-06-29] MEDS: Theophylline Anhydrous ER 400 MG TAB.ER.24H 200 MG PO (19:03)
[2022-06-30] VITALS (9 sets, daily range): BP systolic 110–126; BP diastolic 60–73; PULSE 69–102; RESP 14–20; TEMP 36.6–37.4; O2SAT 85–98
[2022-06-30] MEDS: oxyCODONE HCl Immed Release 5 MG TABLET PO ×2 (03:12→13:53)
[2022-06-30] MEDS: diphenhydrAMINE HCL 25 MG CAPSULE PO ×3 (03:15→21:56)
[2022-06-30] MEDS: Magnesium Hydrox/Alum Hydrox 30 ML ORAL.SUSP 15 ML PO (06:05)
[2022-06-30] MEDS: Omeprazole 20 MG CAPSULE.DR PO (06:05)
[2022-06-30] MEDS: Fluticasone/Vilanterol 200/25 BLST.W.DEV 1 PUFF INHALE (07:52)
[2022-06-30] MEDS: PARoxetine HCL 10 MG TABLET PO (09:02)
[2022-06-30] MEDS: Hydrocortisone 1 % Ointment 28.35 GM TUBE 1 APPL TOPICAL ×2 (09:02→21:57)
[2022-06-30] MEDS: methADONE HCl 20 MG/2 ML ORAL.CONC 30 MG PO (09:02)
[2022-06-30] MEDS: Mineral Oil/Petrolatum,White 106 GM Tube 1 APPL TOPICAL ×2 (09:03→22:00)
--- NOTE | 2022-06-30 10:16 | MHC.CLN ---
F/U PO INTAKE 75-100% DIET RX: REGULAR-APPROPRIATE PT RECEIVES ENSURE BID PROVIDES 700KCALS, 40G PROTEIN CONTINUE TO MONITOR PO INTAKE AND WEIGHT
--- NOTE | 2022-06-30 11:42 | MHC.CM.PN ---
CM has updated SNF referrals to facilities that can accommodate Methadone for drug history.
[2022-06-30] MEDS: Enoxaparin Sodium 40 MG/0.4 ML SYRINGE SUBCUT (16:55)
--- NOTE | 2022-06-30 18:12 | HO.PM.IMPN ---
Subjective Subjective Date of Service: 06/30/22 Interval History: seen and examined this morning follow up for placement no overnight events feels well, no sob Review of Systems Review of Systems: Yes all other systems are reviewed and are negative Constitutional Constitutional: Denies chills and Denies fever(s) Cardiovascular Cardiovascular: Denies chest pain, Denies palpitations and Denies dyspnea Respiratory Respiratory: Denies cough and Denies dyspnea Gastrointestinal Gastrointestinal: Denies abdominal pain, Denies nausea and Denies vomiting Endocrine Endocrine: Denies palpitations Physical Exam Vital Signs: Vital Signs: Last Vital Signs Temp 98.3 F 06/30/22 15:50 Pulse 101 H 06/30/22 15:50 Resp 19 06/30/22 15:50 BP 112/63 06/30/22 15:50 Pulse Ox 85 L 06/30/22 15:50 O2 Del Method 06/30/22 15:50 O2 Flow Rate 2.5 06/30/22 15:50 FiO2 45 06/07/22 19:41 Oxygen Flow Rate 70 05/23/22 21:38 BMI result Body Mass Index 18.6 Const: General: cooperative, comfortable, alert and awake Nutritional Appearance: thin Resp: Effort & Inspection: normal respiratory effort and able to speak in complete sentences Cardio: Rate: regular rate and tachycardic Heart sounds: S1 normal heart sound present and S2 normal heart sound present GI: Inspection: No distended Palpation (GI): Soft to palpation and nontender Neuro: Other: grossly nonfocal Extrem: General: Yes no pedal edema Objective Data Active Medications Al Hydroxide/Mg Hydroxide (Magnesium Hydrox/Alum Hydrox 30 Ml Oral.Susp) 15 ml PO Q4H PRN PRN Reason: heartburn Last Admin: 06/30/22 06:05 Dose: 15 ml Documented By: JACKELYN Diphenhydramine HCl (Diphenhydramine Hcl 25 Mg Capsule) 25 mg PO Q4H PRN PRN Reason: Allergic Reaction Last Admin: 06/30/22 11:53 Dose: 25 mg Documented By: JOSE Docusate Sodium (Docusate Sodium 100 Mg Capsule) 200 mg PO BEDTIME LIBBY Last Admin: 06/29/22 19:03 Dose: 200 mg Documented By: JACKELYN Enoxaparin Sodium (Enoxaparin Sodium 40 Mg/0.4 Ml Syringe) 40 mg SUBCUT Q24H [facility] Last Admin: 06/30/22 16:55 Dose: 40 mg Documented By: JOSE Fluticasone/Vilanterol (Fluticasone/Vilanterol 200/25 Blst.W.Dev) 1 puff INHALE RDAILY [facility] Last Admin: 06/30/22 07:52 Dose: 1 puff Documented By: OBED Guaifenesin/Dextromethorphan (Guaifenesin Dm 100/10/5 Ml 5 Ml Syrup) 10 ml PO TID PRN PRN Reason: cough Hydrocortisone (Hydrocortisone 1 % Ointment 28.35 Gm Tube) 1 appl TOPICAL BID [facility]; Protocol Last Admin: 06/30/22 09:02 Dose: 1 appl Documented By: JOSE Levalbuterol HCl (Levalbuterol Hcl 1.25 Mg/0.5 Ml Vial.Neb) 1.25 mg INHALE Q4H PRN PRN Reason: Shortness of Breath/Wheezing Methadone HCl (Methadone Hcl 20 Mg/2 Ml Oral.Conc) 30 mg PO DAILY [facility] Last Admin: 06/30/22 09:02 Dose: 30 mg Documented By: JOSE Multi-Ingred Cream/Lotion/Oil/Oint (Mineral Oil/Petrolatum,White 106 Gm Tube) 1 appl TOPICAL BID [facility]; Protocol Last Admin: 06/30/22 09:03 Dose: 1 appl Documented By: JOSE Omeprazole (Omeprazole 20 Mg Capsule.Dr) 20 mg PO DAILY@0630 [facility] Last Admin: 06/30/22 06:05 Dose: 20 mg Documented By: JACKELYN Ondansetron HCl (Ondansetron Hcl 4 Mg/2 Ml Vial) 4 mg IVPUSH Q8H PRN PRN Reason: Nausea and Vomiting Last Admin: 06/18/22 19:44 Dose: 4 mg Documented By: JACKELYN Oxycodone HCl (Oxycodone Hcl Immed Release 5 Mg Tablet) 5 mg PO BID PRN PRN Reason: Pain, Severe (Pain Scale 7-10) Last Admin: 06/30/22 13:53 Dose: 5 mg Documented By: JOSE Paroxetine HCl (Paroxetine Hcl 10 Mg Tablet) 10 mg PO DAILY [facility] Last Admin: 06/30/22 09:02 Dose: 10 mg Documented By: JOSE Theophylline (Theophylline Anhydrous Er 400 Mg Tab.Er.24h) 200 mg PO BEDTIME [facility] Last Admin: 06/29/22 19:03 Dose: 200 mg Documented By: JACKELYN Tiotropium [place] (Tiotropium [place] 18 Mcg Cap.W.Dev) 1 puff INHALE RDAILY [facility] Last Admin: 06/30/22 07:52 Dose: 1 puff Documented By: OBED Labs 06/24/22 09:08 06/22/22 05:56 Assessment and Plan (1) COPD (chronic obstructive pulmonary disease): Status: Acute (2) Tachycardia: Status: Acute Plan 56yo M with COPD, chronic hypoxia on 4L O2, HCV, IDU + pulmonary nodules presenting with dyspnea + hypoxia, initially admitted to ICU on BiPAP, stepped-down to [facility] 05/25/22 Macular papular rash to bilateral lower extremities Unknown origin Patient reports he has had this previously in the past Hydrocortisone ointment b.i.d. Benadryl as needed Acute hypoxic respiratory failure secondary to COPD exacerbation and community-acquired pneumonia. Resolved status post vancomycin, Zosyn, Augmentin and doxycycline Goal O2 saturation 88-92% baseline oxygen requirement 4 L Continue theophylline, Spiriva, Breo, and updrafts. steroids weaned Seen and evaluated by pulmonology - will need outpatient follow up prn breathing treatments Sinus tachycardia. Likely secondary to multiple updraft treatments, and theophylline changed to zopenex theophylline level 20.4, dose of theophylline decreased to once daily echo with preserved LVEF Thrombocytopenia secondary to infection stable Anxiety supportive care Left hip pain xray with no acute changes weaned off oxycodone History of substance abuse Continue methadone DVT prophylaxis- lovekhurramx attending Dr. Palmer Full code Disposition - Plan for STR, family unable to care for him at home encourage OOB to chair and ambulation Continue hospitalization for safe discharge placement Time Spent With Patient Time: Total time managing care of this patient today ____ minutes. Quality Stroke Does the patient have a stroke diagnosis?: No VTE Prior VTE?: No VTE Risk Level:: Medical - moderate - high VTE Device Contraindication: Treatment Not Indicated VTE Drug Contraindication: N/A - Med Ordered
[2022-06-30] MEDS: Theophylline Anhydrous ER 400 MG TAB.ER.24H 200 MG PO (21:56)
[2022-07-01 03:33] VITALS: BP 111/67; PULSE 101; RESP 17; TEMP 37.5; O2SAT 93
[2022-07-01] MEDS: Magnesium Hydrox/Alum Hydrox 30 ML ORAL.SUSP 15 ML PO (03:42)
[2022-07-01] MEDS: oxyCODONE HCl Immed Release 5 MG TABLET PO ×2 (03:42→14:53)
[2022-07-01 08:00] VITALS: BP 121/76; PULSE 91; RESP 18; TEMP 37; O2SAT 92
[2022-07-01] MEDS: Fluticasone/Vilanterol 200/25 BLST.W.DEV 1 PUFF INHALE (08:03)
[2022-07-01] MEDS: Omeprazole 20 MG CAPSULE.DR PO (09:40)
[2022-07-01] MEDS: PARoxetine HCL 10 MG TABLET PO (09:40)
[2022-07-01] MEDS: Mineral Oil/Petrolatum,White 106 GM Tube 1 APPL TOPICAL (09:40)
[2022-07-01] MEDS: methADONE HCl 20 MG/2 ML ORAL.CONC 30 MG PO (09:40)
[2022-07-01] MEDS: Hydrocortisone 1 % Ointment 28.35 GM TUBE 1 APPL TOPICAL (09:45)
--- NOTE | 2022-07-01 10:27 | HO.PM.IMPN ---
Subjective Subjective Date of Service: 07/01/22 Interval History: seen and examined this morning follow up for placement no overnight events feels well, no sob Review of Systems Review of Systems: Yes all other systems are reviewed and are negative Constitutional Constitutional: Denies chills and Denies fever(s) Cardiovascular Cardiovascular: Denies chest pain, Denies palpitations and Denies dyspnea Respiratory Respiratory: Denies cough and Denies dyspnea Gastrointestinal Gastrointestinal: Denies abdominal pain, Denies nausea and Denies vomiting Endocrine Endocrine: Denies palpitations Physical Exam Vital Signs: Vital Signs: Last Vital Signs Temp 98.6 F 07/01/22 08:00 Pulse 91 07/01/22 08:00 Resp 18 07/01/22 08:00 BP 121/76 07/01/22 08:00 Pulse Ox 92 07/01/22 08:00 O2 Del Method Humidified O2 07/01/22 08:00 O2 Flow Rate 5.0 07/01/22 08:00 FiO2 45 06/07/22 19:41 Oxygen Flow Rate 70 05/23/22 21:38 BMI result Body Mass Index 18.6 Appearing in no acute distress lung sounds are clear to auscultation heart regular rate rhythm, clear S1, S2 positive bowel sounds, abdomen is soft, nontender neuro patient is alert x3, no focal deficits Objective Data Active Medications Al Hydroxide/Mg Hydroxide (Magnesium Hydrox/Alum Hydrox 30 Ml Oral.Susp) 15 ml PO Q4H PRN PRN Reason: heartburn Last Admin: 07/01/22 03:42 Dose: 15 ml Documented By: ALBERTO Diphenhydramine HCl (Diphenhydramine Hcl 25 Mg Capsule) 25 mg PO Q6H PRN PRN Reason: Allergic Reaction Last Admin: 06/30/22 21:56 Dose: 25 mg Documented By: ALBERTO Docusate Sodium (Docusate Sodium 100 Mg Capsule) 200 mg PO BEDTIME LIBBY Last Admin: 06/30/22 21:57 Dose: Not Given Documented By: ALBERTO Non-Admin Reason: Patient Refused Enoxaparin Sodium (Enoxaparin Sodium 40 Mg/0.4 Ml Syringe) 40 mg SUBCUT Q24H [facility] Last Admin: 06/30/22 16:55 Dose: 40 mg Documented By: RIOSCEL Fluticasone/Vilanterol (Fluticasone/Vilanterol 200/25 Blst.W.Dev) 1 puff INHALE RDAILY [facility] Last Admin: 07/01/22 08:03 Dose: 1 puff Documented By: REYNA Guaifenesin/Dextromethorphan (Guaifenesin Dm 100/10/5 Ml 5 Ml Syrup) 10 ml PO TID PRN PRN Reason: cough Hydrocortisone (Hydrocortisone 1 % Ointment 28.35 Gm Tube) 1 appl TOPICAL BID [facility]; Protocol Last Admin: 07/01/22 09:45 Dose: 1 appl Documented By: GILBERTO Levalbuterol HCl (Levalbuterol Hcl 1.25 Mg/0.5 Ml Vial.Neb) 1.25 mg INHALE Q4H PRN PRN Reason: Shortness of Breath/Wheezing Methadone HCl (Methadone Hcl 20 Mg/2 Ml Oral.Conc) 30 mg PO DAILY [facility] Last Admin: 07/01/22 09:40 Dose: 30 mg Documented By: GILBERTO Multi-Ingred Cream/Lotion/Oil/Oint (Mineral Oil/Petrolatum,White 106 Gm Tube) 1 appl TOPICAL BID [facility]; Protocol Last Admin: 07/01/22 09:40 Dose: 1 appl Documented By: GILBERTO Omeprazole (Omeprazole 20 Mg Capsule.Dr) 20 mg PO DAILY@0630 [facility] Last Admin: 07/01/22 09:40 Dose: 20 mg Documented By: GILBERTO Ondansetron HCl (Ondansetron Hcl 4 Mg/2 Ml Vial) 4 mg IVPUSH Q8H PRN PRN Reason: Nausea and Vomiting Last Admin: 06/18/22 19:44 Dose: 4 mg Documented By: JACKELYN Oxycodone HCl (Oxycodone Hcl Immed Release 5 Mg Tablet) 5 mg PO BID PRN PRN Reason: Pain, Severe (Pain Scale 7-10) Last Admin: 07/01/22 03:42 Dose: 5 mg Documented By: ALBERTO Paroxetine HCl (Paroxetine Hcl 10 Mg Tablet) 10 mg PO DAILY [facility] Last Admin: 07/01/22 09:40 Dose: 10 mg Documented By: GILBERTO Theophylline (Theophylline Anhydrous Er 400 Mg Tab.Er.24h) 200 mg PO BEDTIME [facility] Last Admin: 06/30/22 21:56 Dose: 200 mg Documented By: ALBERTO Tiotropium [place] (Tiotropium [place] 18 Mcg Cap.W.Dev) 1 puff INHALE RDAILY [facility] Last Admin: 07/01/22 08:03 Dose: 1 puff Documented By: REYNA Labs 06/24/22 09:08 06/22/22 05:56 Assessment and Plan (1) COPD (chronic obstructive pulmonary disease): Status: Acute (2) Tachycardia: Status: Acute Plan 56yo M with COPD, chronic hypoxia on 4L O2, HCV, IDU + pulmonary nodules presenting with dyspnea + hypoxia, initially admitted to ICU on BiPAP, stepped-down to [facility] 05/25/22 Macular papular rash to bilateral lower extremities Unknown origin Patient reports he has had this previously in the past Hydrocortisone ointment b.i.d. Benadryl as needed Acute hypoxic respiratory failure secondary to COPD exacerbation and community-acquired pneumonia. Resolved status post vancomycin, Zosyn, Augmentin and doxycycline Goal O2 saturation 88-92% baseline oxygen requirement 4 L Continue theophylline, Spiriva, Breo, and updrafts. steroids weaned Seen and evaluated by pulmonology - will need outpatient follow up prn breathing treatments Sinus tachycardia. Likely secondary to multiple updraft treatments, and theophylline changed to zopenex theophylline level 20.4, dose of theophylline decreased to once daily echo with preserved LVEF Thrombocytopenia secondary to infection stable Anxiety supportive care Left hip pain xray with no acute changes weaned off oxycodone History of substance abuse Continue methadone DVT prophylaxis- lovekhurramx attending Dr. Irene Full code Disposition - Plan for STR, family unable to care for him at home encourage OOB to chair and ambulation Continue hospitalization for safe discharge placement Time Spent With Patient Time: Total time managing care of this patient today ____ minutes. Quality Stroke Does the patient have a stroke diagnosis?: No VTE Prior VTE?: No VTE Risk Level:: Medical - moderate - high VTE Device Contraindication: Treatment Not Indicated VTE Drug Contraindication: N/A - Med Ordered
[2022-07-01] MEDS: diphenhydrAMINE HCL 25 MG CAPSULE PO ×2 (10:46→21:39)
[2022-07-01 11:18] VITALS: BP 121/71; PULSE 92; RESP 18; TEMP 36.3; O2SAT 93
[2022-07-01 15:23] VITALS: BP 113/68; PULSE 88; RESP 17; TEMP 37.4; O2SAT 92
[2022-07-01] MEDS: Enoxaparin Sodium 40 MG/0.4 ML SYRINGE SUBCUT (18:28)
[2022-07-01 19:09] VITALS: BP 115/64; PULSE 99; RESP 17; TEMP 37.4; O2SAT 98
[2022-07-01] MEDS: Theophylline Anhydrous ER 400 MG TAB.ER.24H 200 MG PO (21:38)
[2022-07-01 23:26] VITALS: BP 111/66; PULSE 96; RESP 17; TEMP 37.5; O2SAT 90
[2022-07-02] MEDS: oxyCODONE HCl Immed Release 5 MG TABLET PO ×2 (00:17→15:03)
[2022-07-02] MEDS: Hydrocortisone 1 % Ointment 28.35 GM TUBE 1 APPL TOPICAL ×2 (00:18→08:33)
[2022-07-02 03:37] VITALS: BP 132/70; PULSE 93; RESP 15; TEMP 37.2; O2SAT 94
[2022-07-02 06:00] VITALS: BMI 19.0
[2022-07-02] MEDS: Omeprazole 20 MG CAPSULE.DR PO (06:30)
[2022-07-02 07:59] VITALS: BP 113/81; PULSE 84; RESP 18; TEMP 37.1; O2SAT 92
[2022-07-02] MEDS: PARoxetine HCL 10 MG TABLET PO (08:33)
[2022-07-02] MEDS: Fluticasone/Vilanterol 200/25 BLST.W.DEV 1 PUFF INHALE (08:33)
[2022-07-02] MEDS: methADONE HCl 20 MG/2 ML ORAL.CONC 30 MG PO (08:34)
[2022-07-02 08:36] VITALS: PULSE 84; RESP 18; O2SAT 93
--- NOTE | 2022-07-02 10:48 | HO.PM.IMPN ---
Subjective Subjective Date of Service: 07/02/22 Interval History: seen and examined this morning follow up for placement no overnight events feels well, no sob Review of Systems Review of Systems: Yes all other systems are reviewed and are negative Constitutional Constitutional: Denies chills and Denies fever(s) Cardiovascular Cardiovascular: Denies chest pain, Denies palpitations and Denies dyspnea Respiratory Respiratory: Denies cough and Denies dyspnea Gastrointestinal Gastrointestinal: Denies abdominal pain, Denies nausea and Denies vomiting Endocrine Endocrine: Denies palpitations Physical Exam Vital Signs: Vital Signs: Last Vital Signs Temp 98.7 F 07/02/22 07:59 Pulse 84 07/02/22 08:36 Resp 18 07/02/22 08:36 BP 113/81 07/02/22 07:59 Pulse Ox 92 07/02/22 07:59 O2 Del Method 07/02/22 07:59 O2 Flow Rate 4.5 07/02/22 07:59 FiO2 45 06/07/22 19:41 Oxygen Flow Rate 70 05/23/22 21:38 BMI result Body Mass Index 19.0 Appearing in no acute distress lung sounds are clear to auscultation heart regular rate rhythm, clear S1, S2 positive bowel sounds, abdomen is soft, nontender neuro patient is alert x3, no focal deficits Objective Data Active Medications Al Hydroxide/Mg Hydroxide (Magnesium Hydrox/Alum Hydrox 30 Ml Oral.Susp) 15 ml PO Q4H PRN PRN Reason: heartburn Last Admin: 07/01/22 03:42 Dose: 15 ml Documented By: ALBERTO Diphenhydramine HCl (Diphenhydramine Hcl 25 Mg Capsule) 25 mg PO Q6H PRN PRN Reason: Allergic Reaction Last Admin: 07/01/22 21:39 Dose: 25 mg Documented By: ALBERTO Docusate Sodium (Docusate Sodium 100 Mg Capsule) 200 mg PO BEDTIME LIBBY Last Admin: 07/01/22 21:45 Dose: Not Given Documented By: ALBERTO Non-Admin Reason: Patient Refused Enoxaparin Sodium (Enoxaparin Sodium 40 Mg/0.4 Ml Syringe) 40 mg SUBCUT Q24H [facility] Last Admin: 07/01/22 18:28 Dose: 40 mg Documented By: DOBROB Fluticasone/Vilanterol (Fluticasone/Vilanterol 200/25 Blst.W.Dev) 1 puff INHALE RDAILY [facility] Last Admin: 07/02/22 08:33 Dose: 1 puff Documented By: REYNA Guaifenesin/Dextromethorphan (Guaifenesin Dm 100/10/5 Ml 5 Ml Syrup) 10 ml PO TID PRN PRN Reason: cough Hydrocortisone (Hydrocortisone 1 % Ointment 28.35 Gm Tube) 1 appl TOPICAL BID [facility]; Protocol Last Admin: 07/02/22 08:33 Dose: 1 appl Documented By: JOHN Levalbuterol HCl (Levalbuterol Hcl 1.25 Mg/0.5 Ml Vial.Neb) 1.25 mg INHALE Q4H PRN PRN Reason: Shortness of Breath/Wheezing Methadone HCl (Methadone Hcl 20 Mg/2 Ml Oral.Conc) 30 mg PO DAILY [facility] Last Admin: 07/02/22 08:34 Dose: 30 mg Documented By: JOHN Multi-Ingred Cream/Lotion/Oil/Oint (Mineral Oil/Petrolatum,White 106 Gm Tube) 1 appl TOPICAL BID [facility]; Protocol Last Admin: 07/02/22 10:47 Dose: Not Given Documented By: JOHN Non-Admin Reason: not in room Omeprazole (Omeprazole 20 Mg Capsule.Dr) 20 mg PO DAILY@0630 [facility] Last Admin: 07/02/22 06:30 Dose: 20 mg Documented By: ALBERTO Ondansetron HCl (Ondansetron Hcl 4 Mg/2 Ml Vial) 4 mg IVPUSH Q8H PRN PRN Reason: Nausea and Vomiting Last Admin: 06/18/22 19:44 Dose: 4 mg Documented By: JACKELYN Oxycodone HCl (Oxycodone Hcl Immed Release 5 Mg Tablet) 5 mg PO BID PRN PRN Reason: Pain, Severe (Pain Scale 7-10) Last Admin: 07/02/22 00:17 Dose: 5 mg Documented By: JOSE ALBERTO Paroxetine HCl (Paroxetine Hcl 10 Mg Tablet) 10 mg PO DAILY [facility] Last Admin: 07/02/22 08:33 Dose: 10 mg Documented By: JOHN Theophylline (Theophylline Anhydrous Er 400 Mg Tab.Er.24h) 200 mg PO BEDTIME [facility] Last Admin: 07/01/22 21:38 Dose: 200 mg Documented By: ALBERTO Tiotropium [place] (Tiotropium [place] 18 Mcg Cap.W.Dev) 1 puff INHALE RDAILY [facility] Last Admin: 07/02/22 08:33 Dose: 1 puff Documented By: REYNA Labs 06/24/22 09:08 06/22/22 05:56 Assessment and Plan (1) COPD (chronic obstructive pulmonary disease): Status: Acute (2) Tachycardia: Status: Acute Plan 56yo M with COPD, chronic hypoxia on 4L O2, HCV, IDU + pulmonary nodules presenting with dyspnea + hypoxia, initially admitted to ICU on BiPAP, stepped-down to [facility] 05/25/22 Macular papular rash to bilateral lower extremities. Resolved Unknown origin Patient reports he has had this previously in the past Hydrocortisone ointment prn Acute hypoxic respiratory failure secondary to COPD exacerbation and community-acquired pneumonia. Resolved status post vancomycin, Zosyn, Augmentin and doxycycline Goal O2 saturation 88-92% baseline oxygen requirement 4 L Continue theophylline, Spiriva, Breo, and updrafts. steroids weaned Seen and evaluated by pulmonology - will need outpatient follow up prn breathing treatments Sinus tachycardia. Likely secondary to multiple updraft treatments, and theophylline changed to zopenex theophylline level 20.4, dose of theophylline decreased to once daily echo with preserved LVEF Thrombocytopenia secondary to infection stable Anxiety supportive care Left hip pain xray with no acute changes weaned off oxycodone History of substance abuse [facility] Full code Disposition - Plan for STR, family unable to care for him at home encourage OOB to chair and ambulation Continue hospitalization for safe discharge placement Time Spent With Patient Time: Total time managing care of this patient today ____ minutes. Quality Stroke Does the patient have a stroke diagnosis?: No VTE Prior VTE?: No VTE Risk Level:: Medical - moderate - high VTE Device Contraindication: Treatment Not Indicated VTE Drug Contraindication: N/A - Med Ordered
[2022-07-02 15:33] VITALS: BP 113/58; PULSE 94; RESP 16; TEMP 36.2; O2SAT 88
[2022-07-02 19:19] VITALS: BP 111/70; PULSE 87; RESP 16; TEMP 36.5; O2SAT 93
[2022-07-02] MEDS: Theophylline Anhydrous ER 400 MG TAB.ER.24H 200 MG PO (20:12)
[2022-07-02] MEDS: Enoxaparin Sodium 40 MG/0.4 ML SYRINGE SUBCUT (20:12)
[2022-07-03] VITALS (10 sets, daily range): BP systolic 109–141; BP diastolic 55–73; PULSE 82–126; RESP 17–22; TEMP 36.4–37.4; O2SAT 87–94; BMI 17.7
[2022-07-03] MEDS: oxyCODONE HCl Immed Release 5 MG TABLET PO ×3 (02:37→22:04)
[2022-07-03] MEDS: Magnesium Hydrox/Alum Hydrox 30 ML ORAL.SUSP 15 ML PO (02:43)
[2022-07-03] MEDS: Omeprazole 20 MG CAPSULE.DR PO (05:48)
[2022-07-03] MEDS: methADONE HCl 20 MG/2 ML ORAL.CONC 30 MG PO (07:41)
[2022-07-03] MEDS: PARoxetine HCL 10 MG TABLET PO (07:46)
--- NOTE | 2022-07-03 11:12 | MHC.CLN ---
F/U PO INTAKE 100% DIET RX: REGULAR-APPROPRIATE PT RECEIVES ENSURE BID PROVIDES 700KCALS, 40G PROTEIN CONTINUE TO MONITOR PO INTAKE AND WEIGHT RD TO FOLLOW WEEKLY
--- NOTE | 2022-07-03 11:27 | MHC.CM.PN ---
Per ROUNDS discussion, CM met with Patient at bedside regarding the possibility of returning home today. Patient appeared quite anxious and stated, ask the Nurse;I've had bad breathing attacks today. CM relayed this information to TOLL TEST DESK WORKER/Isabella.
--- NOTE | 2022-07-03 11:28 | HO.PM.IMPN ---
Subjective Subjective Date of Service: 07/03/22 Interval History: seen and examined this morning follow up for placement no overnight events feels well, no sob Review of Systems Review of Systems: Yes all other systems are reviewed and are negative Constitutional Constitutional: Denies chills and Denies fever(s) Cardiovascular Cardiovascular: Denies chest pain, Denies palpitations and Denies dyspnea Respiratory Respiratory: Denies cough and Denies dyspnea Gastrointestinal Gastrointestinal: Denies abdominal pain, Denies nausea and Denies vomiting Endocrine Endocrine: Denies palpitations Physical Exam Vital Signs: Vital Signs: Last Vital Signs Temp 98.3 F 07/03/22 07:34 Pulse 126 H 07/03/22 07:56 Resp 22 H 07/03/22 07:56 BP 141/55 H 07/03/22 07:34 Pulse Ox 87 L 07/03/22 07:34 O2 Del Method 07/03/22 07:34 O2 Flow Rate 15 07/03/22 07:34 FiO2 45 06/07/22 19:41 Oxygen Flow Rate 70 05/23/22 21:38 BMI result Body Mass Index 17.7 Appearing in no acute distress lung sounds are clear to auscultation heart regular rate rhythm, clear S1, S2 positive bowel sounds, abdomen is soft, nontender neuro patient is alert x3, no focal deficits Objective Data Active Medications Al Hydroxide/Mg Hydroxide (Magnesium Hydrox/Alum Hydrox 30 Ml Oral.Susp) 15 ml PO Q4H PRN PRN Reason: heartburn Last Admin: 07/03/22 02:43 Dose: 15 ml Documented By: HAIDER Docusate Sodium (Docusate Sodium 100 Mg Capsule) 200 mg PO BEDTIME [facility] Last Admin: 07/02/22 20:14 Dose: Not Given Documented By: BORIS Non-Admin Reason: Patient Refused Enoxaparin Sodium (Enoxaparin Sodium 40 Mg/0.4 Ml Syringe) 40 mg SUBCUT Q24H [facility] Last Admin: 07/02/22 20:12 Dose: 40 mg Documented By: BORIS Fluticasone/Vilanterol (Fluticasone/Vilanterol 200/25 Blst.W.Dev) 1 puff INHALE RDAILY [facility] Last Admin: 07/03/22 08:05 Dose: Not Given Documented By: OBED Non-Admin Reason: Patient Refused Guaifenesin/Dextromethorphan (Guaifenesin Dm 100/10/5 Ml 5 Ml Syrup) 10 ml PO TID PRN PRN Reason: cough Hydrocortisone (Hydrocortisone 1 % Ointment 28.35 Gm Tube) 1 appl TOPICAL BID PRN; Protocol PRN Reason: itching Levalbuterol HCl (Levalbuterol Hcl 1.25 Mg/0.5 Ml Vial.Neb) 1.25 mg INHALE Q4H PRN PRN Reason: Shortness of Breath/Wheezing Last Admin: 07/03/22 07:54 Dose: 1.25 mg Documented By: OBED Methadone HCl (Methadone Hcl 20 Mg/2 Ml Oral.Conc) 30 mg PO DAILY [facility] Last Admin: 07/03/22 07:41 Dose: 30 mg Documented By: CATARINO Multi-Ingred Cream/Lotion/Oil/Oint (Mineral Oil/Petrolatum,White 106 Gm Tube) 1 appl TOPICAL BID [facility]; Protocol Last Admin: 07/02/22 20:19 Dose: Not Given Documented By: BORIS Non-Admin Reason: Patient Refused Omeprazole (Omeprazole 20 Mg Capsule.) 20 mg PO DAILY@0630 [facility] Last Admin: 07/03/22 05:48 Dose: 20 mg Documented By: HAIDER Ondansetron HCl (Ondansetron Hcl 4 Mg/2 Ml Vial) 4 mg IVPUSH Q8H PRN PRN Reason: Nausea and Vomiting Last Admin: 06/18/22 19:44 Dose: 4 mg Documented By: JACKELYN Oxycodone HCl (Oxycodone Hcl Immed Release 5 Mg Tablet) 5 mg PO BID PRN PRN Reason: Pain, Severe (Pain Scale 7-10) Last Admin: 07/03/22 10:30 Dose: 5 mg Documented By: CATARINO Paroxetine HCl (Paroxetine Hcl 10 Mg Tablet) 10 mg PO DAILY [facility] Last Admin: 07/03/22 07:46 Dose: 10 mg Documented By: CATARINO Theophylline (Theophylline Anhydrous Er 400 Mg Tab.Er.24h) 200 mg PO BEDTIME [facility] Last Admin: 07/02/22 20:12 Dose: 200 mg Documented By: BORIS Tiotropium [place] (Tiotropium [place] 18 Mcg Cap.W.Dev) 1 puff INHALE RDAILY [facility] Last Admin: 07/03/22 08:05 Dose: Not Given Documented By: OBED Non-Admin Reason: Patient Refused Labs 06/24/22 09:08 06/22/22 05:56 Assessment and Plan (1) COPD (chronic obstructive pulmonary disease): Status: Acute (2) Tachycardia: Status: Acute Plan 56yo M with COPD, chronic hypoxia on 4L O2, HCV, IDU + pulmonary nodules presenting with dyspnea + hypoxia, initially admitted to ICU on BiPAP, stepped-down to [facility] 05/25/22 Metabolic alkalosis chronic 7.47/40/64/30 continue supplemental oxygen cxr unchanged Macular papular rash to bilateral lower extremities. Resolved Unknown origin Patient reports he has had this previously in the past Hydrocortisone ointment prn Acute hypoxic respiratory failure secondary to COPD exacerbation and community-acquired pneumonia. Resolved status post vancomycin, Zosyn, Augmentin and doxycycline Goal O2 saturation 88-92% baseline oxygen requirement 4 L Continue theophylline, Spiriva, Breo, and updrafts. steroids weaned Seen and evaluated by pulmonology - will need outpatient follow up prn breathing treatments Sinus tachycardia. Likely secondary to multiple updraft treatments, and theophylline changed to zopenex theophylline level 20.4, dose of theophylline decreased to once daily echo with preserved LVEF Thrombocytopenia secondary to infection stable Anxiety supportive care Left hip pain xray with no acute changes weaned off oxycodone History of substance abuse Continue methadone DVT prophylaxis- lovenox attending Dr. Palmer Full code Disposition - Plan for STR, family unable to care for him at home encourage OOB to chair and ambulation Continue hospitalization for safe discharge placement Time Spent With Patient Time: Total time managing care of this patient today ____ minutes. Quality Stroke Does the patient have a stroke diagnosis?: No VTE Prior VTE?: No VTE Risk Level:: Medical - moderate - high VTE Device Contraindication: Treatment Not Indicated VTE Drug Contraindication: N/A - Med Ordered
[2022-07-03 12:08] LABS: MANUAL DIFF FLAG NO
[2022-07-03 12:24] LABS: Anion Gap 11 (12-20); Blood Urea Nitrogen 15 mg/dL (9-16); Calcium 8.6 mg/dL (8.4-10.2); Carbon Dioxide 28 mmol/L (22-29); Chloride 100 mmol/L (96-108); Creatinine Clr Calc Pharmacy 89.4; Estimated Glomerular Filt Rate > 60; Glucose Random 103 mg/dL (60-115); Potassium 4.1 mmol/L (3.3-5.1); Sodium 135 mmol/L (135-145)
[2022-07-03 12:45] LABS: Basophils Percent Auto 0.3 % (0-2); Eosinophils Percent Auto 0.2 % (0-4); Hematocrit 36.7 % (42.0-52.0); Hemoglobin 12.2 g/dl (14.0-18.0); Imm Gran Abs Auto 0.07 X10*3/uL (0.00-0.03); Imm Gran Pct Auto 0.5 % (0.0-0.4); Lymphocytes Absolute Auto 0.6 X10*3/uL (1.2-4.9); Mean Corpuscular HGB Conc 33.2 g/dl (31.0-36.0); Mean Corpuscular Hemoglobin 26.1 pg (27.0-33.0); Mean Corpuscular Volume 78.6 fL (80.0-98.0); Mean Platelet Volume 8.4 fL (9.4-12.4); Monocytes Absolute Auto 0.9 X10*3/uL (0.1-1.2); Monocytes Percent Auto 7.2 % (2-11); Neutrophils Absolute Auto 11.1 x10*3/uL (2.0-8.3); Neutrophils Percent Auto 86.8 % (45-73); Platelet Count 132 X10*3/uL (160-400); Red Blood Count 4.67 X10*6/uL (4.60-5.80); White Blood Count 12.8 X10*3/uL (4.8-10.8)
[2022-07-03] MEDS: Mineral Oil/Petrolatum,White 106 GM Tube 1 APPL TOPICAL ×2 (12:57→22:07)
[2022-07-03 14:30] LABS: ABG HCO3 30 mmol/L (22-26); ABG pCO2 40 mmHg (32-45); ABG pH 7.47 (7.35-7.45); ABG pO2 64 mmHg (83-108)
[2022-07-03] MEDS: Enoxaparin Sodium 40 MG/0.4 ML SYRINGE SUBCUT (17:56)
[2022-07-03] MEDS: Docusate Sodium 100 MG CAPSULE 200 MG PO (22:04)
[2022-07-03] MEDS: Theophylline Anhydrous ER 400 MG TAB.ER.24H 200 MG PO (22:04)
[2022-07-04] VITALS (9 sets, daily range): BP systolic 107–130; BP diastolic 65–79; PULSE 86–103; RESP 12–20; TEMP 36.2–37.3; O2SAT 90–94; BMI 16.9
[2022-07-04 01:42] LABS: ABG Refer to POC result
[2022-07-04] MEDS: Omeprazole 20 MG CAPSULE.DR PO (05:18)
[2022-07-04] MEDS: Fluticasone/Vilanterol 200/25 BLST.W.DEV 1 PUFF INHALE (07:29)
--- NOTE | 2022-07-04 09:45 | HO.PM.IMPN ---
Subjective Subjective Date of Service: 07/04/22 Interval History: seen and examined this morning follow up for placement no overnight events feels well, no sob Review of Systems Review of Systems: Yes all other systems are reviewed and are negative Constitutional Constitutional: Denies chills and Denies fever(s) Cardiovascular Cardiovascular: Denies chest pain, Denies palpitations and Denies dyspnea Respiratory Respiratory: Denies cough and Denies dyspnea Gastrointestinal Gastrointestinal: Denies abdominal pain, Denies nausea and Denies vomiting Endocrine Endocrine: Denies palpitations Physical Exam Vital Signs: Vital Signs: Last Vital Signs Temp 98.9 F 07/04/22 07:24 Pulse 94 07/04/22 07:24 Resp 18 07/04/22 07:30 BP 108/77 07/04/22 07:24 Pulse Ox 93 07/04/22 07:24 O2 Del Method 07/04/22 07:24 O2 Flow Rate 5 07/04/22 07:24 FiO2 45 06/07/22 19:41 Oxygen Flow Rate 70 05/23/22 21:38 BMI result Body Mass Index 16.9 Appearing in no acute distress lung sounds dim heart regular rate rhythm, clear S1, S2 positive bowel sounds, abdomen is soft, nontender neuro patient is alert x3, no focal deficits Objective Data Active Medications Al Hydroxide/Mg Hydroxide (Magnesium Hydrox/Alum Hydrox 30 Ml Oral.Susp) 15 ml PO Q4H PRN PRN Reason: heartburn Last Admin: 07/03/22 02:43 Dose: 15 ml Documented By: HAIDER Docusate Sodium (Docusate Sodium 100 Mg Capsule) 200 mg PO BEDTIME [facility] Last Admin: 07/03/22 22:04 Dose: 200 mg Documented By: VALERI Enoxaparin Sodium (Enoxaparin Sodium 40 Mg/0.4 Ml Syringe) 40 mg SUBCUT Q24H [facility] Last Admin: 07/03/22 17:56 Dose: 40 mg Documented By: CATARINO Fluticasone/Vilanterol (Fluticasone/Vilanterol 200/25 Blst.W.Dev) 1 puff INHALE RDAILY [facility] Last Admin: 07/04/22 07:29 Dose: 1 puff Documented By: OBED Guaifenesin/Dextromethorphan (Guaifenesin Dm 100/10/5 Ml 5 Ml Syrup) 10 ml PO TID PRN PRN Reason: cough Hydrocortisone (Hydrocortisone 1 % Ointment 28.35 Gm Tube) 1 appl TOPICAL BID PRN; Protocol PRN Reason: itching Levalbuterol HCl (Levalbuterol Hcl 1.25 Mg/0.5 Ml Vial.Neb) 1.25 mg INHALE Q4H PRN PRN Reason: Shortness of Breath/Wheezing Last Admin: 07/04/22 07:29 Dose: 1.25 mg Documented By: OBED Methadone HCl (Methadone Hcl 20 Mg/2 Ml Oral.Conc) 30 mg PO DAILY [facility] Last Admin: 07/03/22 07:41 Dose: 30 mg Documented By: CATARINO Multi-Ingred Cream/Lotion/Oil/Oint (Mineral Oil/Petrolatum,White 106 Gm Tube) 1 appl TOPICAL BID [facility]; Protocol Last Admin: 07/03/22 22:07 Dose: 1 appl Documented By: VALERI Omeprazole (Omeprazole 20 Mg Capsule.Dr) 20 mg PO DAILY@0630 [facility] Last Admin: 07/04/22 05:18 Dose: 20 mg Documented By: PIO Ondansetron HCl (Ondansetron Hcl 4 Mg/2 Ml Vial) 4 mg IVPUSH Q8H PRN PRN Reason: Nausea and Vomiting Last Admin: 06/18/22 19:44 Dose: 4 mg Documented By: JACKELYN Oxycodone HCl (Oxycodone Hcl Immed Release 5 Mg Tablet) 5 mg PO BID PRN PRN Reason: Pain, Severe (Pain Scale 7-10) Last Admin: 07/03/22 22:04 Dose: 5 mg Documented By: VALERI Paroxetine HCl (Paroxetine Hcl 10 Mg Tablet) 10 mg PO DAILY [facility] Last Admin: 07/03/22 07:46 Dose: 10 mg Documented By: CATARINO Theophylline (Theophylline Anhydrous Er 400 Mg Tab.Er.24h) 200 mg PO BEDTIME [facility] Last Admin: 07/03/22 22:04 Dose: 200 mg Documented By: VALERI Tiotropium [place] (Tiotropium [place] 18 Mcg Cap.W.Dev) 1 puff INHALE RDAILY [facility] Last Admin: 07/04/22 07:29 Dose: 1 puff Documented By: OBED [place] 07/03/22 11:42 07/03/22 11:42 Labs: Laboratory Results - last 24 hr 07/03/22 07/03/22 07/03/22 11:42 11:42 14:22 MCV 78.6 L MCH 26.1 L MCHC 33.2 RDW 14.0 Plt Count 132 L D MPV 8.4 L Immature Gran % (Auto) 0.5 H Neut % (Auto) 86.8 H Lymph % (Auto) 5.0 L [place] % (Auto) 7.2 Eos % (Auto) 0.2 Baso % (Auto) 0.3 Lymph # (Auto) 0.6 L [place] # (Auto) 0.9 Eos # (Auto) 0.0 Baso # (Auto) 0.0 Abs Immat Gran (auto) 0.07 H Absolute Neuts (auto) 11.1 H Absolute Nucleated RBC 0.000 Nucleated RBC % (auto) 0.0 O2 Saturation 90.0 ABG pH at Pt Temp 7.47 H ABG pCO2 at Pt Temp 40 ABG pO2 at Pt Temp 64 L ABG HCO3 30 H ABG Base Excess (Actual) 6.0 Anion Gap 11 L Estim Creat Clear Calc 89.4 Estimated GFR > 60 Random Glucose 103 D Calcium 8.6 Assessment and Plan (1) COPD (chronic obstructive pulmonary disease): Status: Acute (2) Tachycardia: Status: Acute Plan 56yo M with COPD, chronic hypoxia on 4L O2, HCV, IDU + pulmonary nodules presenting with dyspnea + hypoxia, initially admitted to ICU on BiPAP, stepped-down to [facility] 05/25/22 Metabolic alkalosis chronic 7.47/40/64/30 continue supplemental oxygen cxr unchanged Macular papular rash to bilateral lower extremities. Resolved Unknown origin Patient reports he has had this previously in the past Hydrocortisone ointment prn Acute hypoxic respiratory failure secondary to COPD exacerbation and community-acquired pneumonia. Resolved status post vancomycin, Zosyn, Augmentin and doxycycline Goal O2 saturation 88-92% baseline oxygen requirement 4 L Continue theophylline, Spiriva, Breo, and updrafts. steroids weaned Seen and evaluated by pulmonology - will need outpatient follow up prn breathing treatments Sinus tachycardia. Likely secondary to multiple updraft treatments, and theophylline changed to zopenex theophylline level 20.4, dose of theophylline decreased to once daily echo with preserved LVEF Thrombocytopenia secondary to infection stable Anxiety supportive care Left hip pain xray with no acute changes weaned off oxycodone History of substance abuse Continue methadone DVT prophylaxis- dilshad attending Dr. Palmer Full code Disposition - Plan for STR, family unable to care for him at home encourage OOB to chair and ambulation Continue hospitalization for safe discharge placement Time Spent With Patient Time: Total time managing care of this patient today ____ minutes. Quality Stroke Does the patient have a stroke diagnosis?: No VTE Prior VTE?: No VTE Risk Level:: Medical - moderate - high VTE Device Contraindication: Treatment Not Indicated VTE Drug Contraindication: N/A - Med Ordered
[2022-07-04] MEDS: methADONE HCl 20 MG/2 ML ORAL.CONC 30 MG PO (09:49)
[2022-07-04] MEDS: PARoxetine HCL 10 MG TABLET PO (09:50)
[2022-07-04] MEDS: Mineral Oil/Petrolatum,White 106 GM Tube 1 APPL TOPICAL (09:50)
[2022-07-04] MEDS: oxyCODONE HCl Immed Release 5 MG TABLET PO ×2 (09:55→20:15)
--- NOTE | 2022-07-04 14:38 | MHC.CM.PN ---
met with pt today who is unsure of going home getting a new pt gracy pt has home 02
--- NOTE | 2022-07-04 15:58 | MHC.CM.PN ---
pt to have a reeval for pt pt does not want to go home family will accept if he is indepemndent
[2022-07-04] MEDS: Enoxaparin Sodium 40 MG/0.4 ML SYRINGE SUBCUT (17:11)
[2022-07-04] MEDS: Theophylline Anhydrous ER 400 MG TAB.ER.24H 200 MG PO (20:15)
[2022-07-05] VITALS (8 sets, daily range): BP systolic 104–165; BP diastolic 71–79; PULSE 88–128; RESP 18–20; TEMP 36.6–37.1; O2SAT 87–94; BMI 16.6
[2022-07-05] MEDS: oxyCODONE HCl Immed Release 5 MG TABLET PO (05:42)
[2022-07-05] MEDS: Omeprazole 20 MG CAPSULE.DR PO (05:42)
[2022-07-05] MEDS: Fluticasone/Vilanterol 200/25 BLST.W.DEV 1 PUFF INHALE (07:45)
[2022-07-05] MEDS: PARoxetine HCL 10 MG TABLET PO (08:34)
[2022-07-05] MEDS: methADONE HCl 20 MG/2 ML ORAL.CONC 30 MG PO (08:34)
[2022-07-05] MEDS: Mineral Oil/Petrolatum,White 106 GM Tube 1 APPL TOPICAL (08:35)
--- NOTE | 2022-07-05 10:39 | HO.PM.IMPN ---
Subjective Subjective Date of Service: 07/05/22 Interval History: seen and examined this morning follow up for placement no overnight events feels well, no sob Review of Systems Review of Systems: Yes all other systems are reviewed and are negative Constitutional Constitutional: Denies chills and Denies fever(s) Cardiovascular Cardiovascular: Denies chest pain, Denies palpitations and Denies dyspnea Respiratory Respiratory: Denies cough and Denies dyspnea Gastrointestinal Gastrointestinal: Denies abdominal pain, Denies nausea and Denies vomiting Endocrine Endocrine: Denies palpitations Physical Exam Vital Signs: Vital Signs: Last Vital Signs Temp 98.7 F 07/05/22 07:30 Pulse 128 H 07/05/22 09:28 Resp 20 07/05/22 07:52 BP 111/79 07/05/22 07:30 Pulse Ox 93 07/05/22 09:28 O2 Del Method 07/05/22 07:30 O2 Flow Rate 5 07/05/22 07:30 FiO2 45 06/07/22 19:41 Oxygen Flow Rate 70 05/23/22 21:38 BMI result Body Mass Index 16.6 Appearing in no acute distress lung sounds are clear to auscultation heart regular rate rhythm, clear S1, S2 positive bowel sounds, abdomen is soft, nontender neuro patient is alert x3, no focal deficits Objective Data Active Medications Al Hydroxide/Mg Hydroxide (Magnesium Hydrox/Alum Hydrox 30 Ml Oral.Susp) 15 ml PO Q4H PRN PRN Reason: heartburn Last Admin: 07/03/22 02:43 Dose: 15 ml Documented By: HAIDER Docusate Sodium (Docusate Sodium 100 Mg Capsule) 200 mg PO BEDTIME [facility] Last Admin: 07/04/22 20:16 Dose: Not Given Documented By: ALEJANDRA Non-Admin Reason: Patient Refused Enoxaparin Sodium (Enoxaparin Sodium 40 Mg/0.4 Ml Syringe) 40 mg SUBCUT Q24H [facility] Last Admin: 07/04/22 17:11 Dose: 40 mg Documented By: REENA Fluticasone/Vilanterol (Fluticasone/Vilanterol 200/25 Blst.W.Dev) 1 puff INHALE RDAILY [facility] Last Admin: 07/05/22 07:45 Dose: 1 puff Documented By: SRAVAN Guaifenesin/Dextromethorphan (Guaifenesin Dm 100/10/5 Ml 5 Ml Syrup) 10 ml PO TID PRN PRN Reason: cough Hydrocortisone (Hydrocortisone 1 % Ointment 28.35 Gm Tube) 1 appl TOPICAL BID PRN; Protocol PRN Reason: itching Levalbuterol HCl (Levalbuterol Hcl 1.25 Mg/0.5 Ml Vial.Neb) 1.25 mg INHALE Q4H PRN PRN Reason: Shortness of Breath/Wheezing Last Admin: 07/04/22 07:29 Dose: 1.25 mg Documented By: OBED Methadone HCl (Methadone Hcl 20 Mg/2 Ml Oral.Conc) 30 mg PO DAILY [facility] Last Admin: 07/05/22 08:34 Dose: 30 mg Documented By: REENA Multi-Ingred Cream/Lotion/Oil/Oint (Mineral Oil/Petrolatum,White 106 Gm Tube) 1 appl TOPICAL BID [facility]; Protocol Last Admin: 07/05/22 08:35 Dose: 1 appl Documented By: REENA Omeprazole (Omeprazole 20 Mg Capsule.Dr) 20 mg PO DAILY@0630 [facility] Last Admin: 07/05/22 05:42 Dose: 20 mg Documented By: EMMA Ondansetron HCl (Ondansetron Hcl 4 Mg/2 Ml Vial) 4 mg IVPUSH Q8H PRN PRN Reason: Nausea and Vomiting Last Admin: 06/18/22 19:44 Dose: 4 mg Documented By: JACKELYN Paroxetine HCl (Paroxetine Hcl 10 Mg Tablet) 10 mg PO DAILY [facility] Last Admin: 07/05/22 08:34 Dose: 10 mg Documented By: REENA Theophylline (Theophylline Anhydrous Er 400 Mg Tab.Er.24h) 200 mg PO BEDTIME [facility] Last Admin: 07/04/22 20:15 Dose: 200 mg Documented By: ALEJANDRA Tiotropium [place] (Tiotropium [place] 18 Mcg Cap.W.Dev) 1 puff INHALE RDAILY [facility] Last Admin: 07/05/22 07:45 Dose: 1 puff Documented By: SRAVAN Labs 07/03/22 11:42 07/03/22 11:42 Assessment and Plan (1) COPD (chronic obstructive pulmonary disease): Status: Acute (2) Tachycardia: Status: Acute Plan 56yo M with COPD, chronic hypoxia on 4L O2, HCV, IDU + pulmonary nodules presenting with dyspnea + hypoxia, initially admitted to ICU on BiPAP, stepped-down to [facility] 05/25/22 Metabolic alkalosis chronic 7.47/40/64/30 continue supplemental oxygen cxr unchanged Macular papular rash to bilateral lower extremities. Resolved Unknown origin Patient reports he has had this previously in the past Hydrocortisone ointment prn Acute hypoxic respiratory failure secondary to COPD exacerbation and community-acquired pneumonia. Resolved status post vancomycin, Zosyn, Augmentin and doxycycline Goal O2 saturation 88-92% baseline oxygen requirement 4 L Continue theophylline, Spiriva, Breo, and updrafts. steroids weaned Seen and evaluated by pulmonology - will need outpatient follow up prn breathing treatments Sinus tachycardia. Likely secondary to multiple updraft treatments, and theophylline changed to zopenex theophylline level 20.4, dose of theophylline decreased to once daily echo with preserved LVEF Thrombocytopenia secondary to infection stable Anxiety supportive care Left hip pain xray with no acute changes weaned off oxycodone History of substance abuse [facility] Full code Disposition - Plan for STR, family unable to care for him at home encourage OOB to chair and ambulation Continue hospitalization for safe discharge placement Time Spent With Patient Time: Total time managing care of this patient today ____ minutes. Quality Stroke Does the patient have a stroke diagnosis?: No VTE Prior VTE?: No VTE Risk Level:: Medical - moderate - high VTE Device Contraindication: Treatment Not Indicated VTE Drug Contraindication: N/A - Med Ordered
[2022-07-05] MEDS: Enoxaparin Sodium 40 MG/0.4 ML SYRINGE SUBCUT (17:16)
[2022-07-05] MEDS: Docusate Sodium 100 MG CAPSULE 200 MG PO (21:14)
[2022-07-05] MEDS: Theophylline Anhydrous ER 400 MG TAB.ER.24H 200 MG PO (21:15)
[2022-07-06] MEDS: oxyCODONE HCl Immed Release 5 MG TABLET PO (00:42)
[2022-07-06 03:42] VITALS: BP 132/73; PULSE 88; RESP 18; TEMP 36.9; O2SAT 90
[2022-07-06 06:00] VITALS: BMI 16.7
[2022-07-06] MEDS: Omeprazole 20 MG CAPSULE.DR PO (06:01)
[2022-07-06 07:38] VITALS: BP 114/75; PULSE 92; RESP 18; TEMP 36.9; O2SAT 91
[2022-07-06] MEDS: PARoxetine HCL 10 MG TABLET PO (08:20)
[2022-07-06] MEDS: methADONE HCl 20 MG/2 ML ORAL.CONC 30 MG PO (08:20)
[2022-07-06 08:47] VITALS: PULSE 102; RESP 18; O2SAT 90
[2022-07-06] MEDS: Fluticasone/Vilanterol 200/25 BLST.W.DEV 1 PUFF INHALE (08:47)
[2022-07-06 10:56] VITALS: BP 122/77; PULSE 101; RESP 18; TEMP 36.6; O2SAT 91
[2022-07-06 14:53] VITALS: BP 115/73; PULSE 103; RESP 17; TEMP 36.6; O2SAT 90
--- NOTE | 2022-07-06 17:14 | HO.PM.IMPN ---
Subjective Subjective Date of Service: 07/06/22 Interval History: seen and examined this morning Follow-up for placement Still having some pain at the right hip states this is chronic. No change Reports that he has been moving around as much as possible in his room Review of Systems Review of Systems: Yes all other systems are reviewed and are negative Constitutional Constitutional: Denies chills and Denies fever(s) Cardiovascular Cardiovascular: Denies chest pain, Denies palpitations and Denies dyspnea Respiratory Respiratory: Denies cough and Denies dyspnea Endocrine Endocrine: Denies palpitations Physical Exam Vital Signs: Vital Signs: Last Vital Signs Temp 97.9 F 07/06/22 14:53 Pulse 103 H 07/06/22 14:53 Resp 17 07/06/22 14:53 BP 115/73 07/06/22 14:53 Pulse Ox 90 L 07/06/22 14:53 O2 Del Method 07/06/22 14:53 O2 Flow Rate 4 07/06/22 14:53 FiO2 45 06/07/22 19:41 Oxygen Flow Rate 70 05/23/22 21:38 BMI result Body Mass Index 16.7 Const: General: cooperative, comfortable, no acute distress, alert and awake Nutritional Appearance: thin Resp: Effort & Inspection: normal respiratory effort, able to speak in complete sentences, no respiratory distress and no use of accessory muscles Cardio: Rate: regular rate and tachycardic Heart sounds: S1 normal heart sound present and S2 normal heart sound present GI: Inspection: No distended Palpation (GI): Soft to palpation and nontender Neuro: Other: grossly nonfocal Extrem: General: Yes no pedal edema Objective Data Active Medications Al Hydroxide/Mg Hydroxide (Magnesium Hydrox/Alum Hydrox 30 Ml Oral.Susp) 15 ml PO Q4H PRN PRN Reason: heartburn Last Admin: 07/03/22 02:43 Dose: 15 ml Documented By: HAIDER Docusate Sodium (Docusate Sodium 100 Mg Capsule) 200 mg PO BEDTIME [facility] Last Admin: 07/05/22 21:14 Dose: 200 mg Documented By: SARWAT Enoxaparin Sodium (Enoxaparin Sodium 40 Mg/0.4 Ml Syringe) 40 mg SUBCUT Q24H [facility] Last Admin: 07/05/22 17:16 Dose: 40 mg Documented By: CTORRZ Fluticasone/Vilanterol (Fluticasone/Vilanterol 200/25 Blst.W.Dev) 1 puff INHALE RDAILY [facility] Last Admin: 07/06/22 08:47 Dose: 1 puff Documented By: ISIDRA Guaifenesin/Dextromethorphan (Guaifenesin Dm 100/10/5 Ml 5 Ml Syrup) 10 ml PO TID PRN PRN Reason: cough Hydrocortisone (Hydrocortisone 1 % Ointment 28.35 Gm Tube) 1 appl TOPICAL BID PRN; Protocol PRN Reason: itching Levalbuterol HCl (Levalbuterol Hcl 1.25 Mg/0.5 Ml Vial.Neb) 1.25 mg INHALE Q4H PRN PRN Reason: Shortness of Breath/Wheezing Last Admin: 07/04/22 07:29 Dose: 1.25 mg Documented By: OBED Methadone HCl (Methadone Hcl 20 Mg/2 Ml Oral.Conc) 30 mg PO DAILY [facility] Last Admin: 07/06/22 08:20 Dose: 30 mg Documented By: JOHN Multi-Ingred Cream/Lotion/Oil/Oint (Mineral Oil/Petrolatum,White 106 Gm Tube) 1 appl TOPICAL BID [facility]; Protocol Last Admin: 07/06/22 10:02 Dose: Not Given Documented By: JOHN Non-Admin Reason: Patient Refused Omeprazole (Omeprazole 20 Mg Capsule.Dr) 20 mg PO DAILY@0630 [facility] Last Admin: 07/06/22 06:01 Dose: 20 mg Documented By: SARWAT Ondansetron HCl (Ondansetron Hcl 4 Mg/2 Ml Vial) 4 mg IVPUSH Q8H PRN PRN Reason: Nausea and Vomiting Last Admin: 06/18/22 19:44 Dose: 4 mg Documented By: JACKELYN Paroxetine HCl (Paroxetine Hcl 10 Mg Tablet) 10 mg PO DAILY [facility] Last Admin: 07/06/22 08:20 Dose: 10 mg Documented By: JOHN Theophylline (Theophylline Anhydrous Er 400 Mg Tab.Er.24h) 200 mg PO BEDTIME [facility] Last Admin: 07/05/22 21:15 Dose: 200 mg Documented By: SARWAT Tiotropium [place] (Tiotropium [place] 18 Mcg Cap.W.Dev) 1 puff INHALE RDAILY [facility] Last Admin: 07/06/22 09:07 Dose: 1 puff Documented By: ISIDRA Labs 07/03/22 11:42 07/03/22 11:42 Assessment and Plan (1) Tachycardia: Status: Acute (2) COPD (chronic obstructive pulmonary disease): Status: Acute Plan 56yo M with COPD, chronic hypoxia on 4L O2, HCV, IDU + pulmonary nodules presenting with dyspnea + hypoxia, initially admitted to ICU on BiPAP, stepped-down to [facility] 05/25/22 Metabolic alkalosis chronic 7.47/40/64/30 continue supplemental oxygen cxr unchanged Macular papular rash to bilateral lower extremities. Resolved Unknown origin Patient reports he has had this previously in the past Hydrocortisone ointment prn Acute hypoxic respiratory failure secondary to COPD exacerbation and community-acquired pneumonia. Resolved status post vancomycin, Zosyn, Augmentin and doxycycline Goal O2 saturation 88-92% baseline oxygen requirement 4 L Continue theophylline, Spiriva, Breo, and updrafts. steroids weaned Seen and evaluated by pulmonology - will need outpatient follow up prn breathing treatments Sinus tachycardia. Likely secondary to multiple updraft treatments, and theophylline changed to zopenex theophylline level 20.4, dose of theophylline decreased to once daily echo with preserved LVEF Thrombocytopenia secondary to infection stable Anxiety supportive care Left hip pain xray with no acute changes weaned off oxycodone History of substance abuse Continue methadone DVT prophylaxis- lovenox attending Dr. Palmer Full code Disposition - family unable to care for him at home, CM looking for placement encourage OOB to chair and ambulation Continue hospitalization for safe discharge placement Time Spent With Patient Time: Total time managing care of this patient today ____ minutes. Quality Stroke Does the patient have a stroke diagnosis?: No VTE Prior VTE?: No VTE Risk Level:: Medical - moderate - high VTE Device Contraindication: Treatment Not Indicated VTE Drug Contraindication: N/A - Med Ordered
[2022-07-06] MEDS: Acetaminophen 325 MG TABLET 650 MG PO (18:15)
[2022-07-06] MEDS: Enoxaparin Sodium 40 MG/0.4 ML SYRINGE SUBCUT (18:16)
[2022-07-06 19:17] VITALS: BP 106/69; PULSE 87; RESP 18; TEMP 36.4; O2SAT 93
[2022-07-06] MEDS: Theophylline Anhydrous ER 400 MG TAB.ER.24H 200 MG PO (22:51)
[2022-07-07] VITALS (9 sets, daily range): BP systolic 107–140; BP diastolic 63–92; PULSE 87–102; RESP 16–20; TEMP 36.3–36.7; O2SAT 88–94; BMI 16.9
[2022-07-07] MEDS: Acetaminophen 325 MG TABLET 650 MG PO ×3 (06:06→20:40)
[2022-07-07] MEDS: Omeprazole 20 MG CAPSULE.DR PO (06:06)
[2022-07-07] MEDS: Fluticasone/Vilanterol 200/25 BLST.W.DEV 1 PUFF INHALE (07:50)
[2022-07-07] MEDS: methADONE HCl 20 MG/2 ML ORAL.CONC 30 MG PO (07:57)
[2022-07-07] MEDS: PARoxetine HCL 10 MG TABLET PO (08:05)
--- NOTE | 2022-07-07 10:17 | MHC.CM.PN ---
PT is recommending home vs rehab. There are no SNF bed offers. Patient's initial appointment with his new PCP is scheduled at [facility] on 07/21/22 and Patient would not be eligible for vna until after that initial appointment. CM will follow.
--- NOTE | 2022-07-07 10:29 | MHC.CLN ---
F/U PO INTAKE 75-100% DIET RX: REGULAR-APPROPRIATE PT RECEIVES ENSURE BID PROVIDES 700KCALS, 40G PROTEIN CONTINUE TO MONITOR PO INTAKE AND WEIGHT RD TO FOLLOW WEEKLY
--- NOTE | 2022-07-07 12:23 | HO.PM.IMPN ---
Subjective Subjective Date of Service: 07/07/22 Interval History: seen and examined this morning follow up for placement no overnight events Review of Systems Review of Systems: Yes all other systems are reviewed and are negative Constitutional Constitutional: Denies chills Cardiovascular Cardiovascular: Denies chest pain, Denies palpitations and Denies dyspnea Respiratory Respiratory: Denies cough and Denies dyspnea Gastrointestinal Gastrointestinal: Denies abdominal pain, Denies nausea and Denies vomiting Endocrine Endocrine: Denies palpitations Physical Exam Vital Signs: Vital Signs: Last Vital Signs Temp 97.5 F 07/07/22 11:32 Pulse 87 07/07/22 11:32 Resp 18 07/07/22 11:32 BP 122/72 07/07/22 11:32 Pulse Ox 91 L 07/07/22 11:32 O2 Del Method 07/07/22 11:32 O2 Flow Rate 4 07/07/22 11:32 FiO2 45 06/07/22 19:41 Oxygen Flow Rate 70 05/23/22 21:38 BMI result Body Mass Index 16.9 Const: General: cooperative, comfortable, no acute distress, alert and awake Nutritional Appearance: thin Resp: Effort & Inspection: normal respiratory effort, able to speak in complete sentences, no respiratory distress and no use of accessory muscles Cardio: Rate: regular rate Heart sounds: S1 normal heart sound present and S2 normal heart sound present GI: Inspection: No distended Palpation (GI): Soft to palpation and nontender Neuro: Other: grossly nonfocal Extrem: Other: able to move all 4 extremities General: Yes no pedal edema Objective Data Active Medications Acetaminophen (Acetaminophen 325 Mg Tablet) 650 mg PO Q6H PRN PRN Reason: Pain, Mild (Pain Scale 1-3) Last Admin: 07/07/22 12:06 Dose: 650 mg Documented By: JOHN Al Hydroxide/Mg Hydroxide (Magnesium Hydrox/Alum Hydrox 30 Ml Oral.Susp) 15 ml PO Q4H PRN PRN Reason: heartburn Last Admin: 07/03/22 02:43 Dose: 15 ml Documented By: HAIDER Docusate Sodium (Docusate Sodium 100 Mg Capsule) 200 mg PO BEDTIME [facility] Last Admin: 07/06/22 22:49 Dose: Not Given Documented By: VALERI Non-Admin Reason: Patient Refused Enoxaparin Sodium (Enoxaparin Sodium 40 Mg/0.4 Ml Syringe) 40 mg SUBCUT Q24H [facility] Last Admin: 07/06/22 18:16 Dose: 40 mg Documented By: JOHN Fluticasone/Vilanterol (Fluticasone/Vilanterol 200/25 Blst.W.Dev) 1 puff INHALE RDAILY [facility] Last Admin: 07/07/22 07:50 Dose: 1 puff Documented By: SRAVAN Guaifenesin/Dextromethorphan (Guaifenesin Dm 100/10/5 Ml 5 Ml Syrup) 10 ml PO TID PRN PRN Reason: cough Hydrocortisone (Hydrocortisone 1 % Ointment 28.35 Gm Tube) 1 appl TOPICAL BID PRN; Protocol PRN Reason: itching Methadone HCl (Methadone Hcl 20 Mg/2 Ml Oral.Conc) 30 mg PO DAILY [facility] Last Admin: 07/07/22 07:57 Dose: 30 mg Documented By: JOHN Multi-Ingred Cream/Lotion/Oil/Oint (Mineral Oil/Petrolatum,White 106 Gm Tube) 1 appl TOPICAL BID [facility]; Protocol Last Admin: 07/07/22 07:59 Dose: Not Given Documented By: JOHN Non-Admin Reason: Patient Refused Omeprazole (Omeprazole 20 Mg Capsule.Dr) 20 mg PO DAILY@0630 [facility] Last Admin: 07/07/22 06:06 Dose: 20 mg Documented By: VALERI Ondansetron HCl (Ondansetron Hcl 4 Mg/2 Ml Vial) 4 mg IVPUSH Q8H PRN PRN Reason: Nausea and Vomiting Last Admin: 06/18/22 19:44 Dose: 4 mg Documented By: JACKELYN Paroxetine HCl (Paroxetine Hcl 10 Mg Tablet) 10 mg PO DAILY [facility] Last Admin: 07/07/22 08:05 Dose: 10 mg Documented By: JOHN Theophylline (Theophylline Anhydrous Er 400 Mg Tab.Er.24h) 200 mg PO BEDTIME [facility] Last Admin: 07/06/22 22:51 Dose: 200 mg Documented By: VALERI Tiotropium [place] (Tiotropium [place] 18 Mcg Cap.W.Dev) 1 puff INHALE RDAILY [facility] Last Admin: 07/07/22 07:50 Dose: 1 puff Documented By: SRAVAN Labs 07/03/22 11:42 01/09/23 11:42 Assessment and Plan (1) Tachycardia: Status: Acute (2) COPD (chronic obstructive pulmonary disease): Status: Acute Plan 56yo M with COPD, chronic hypoxia on 4L O2, HCV, IDU + pulmonary nodules presenting with dyspnea + hypoxia, initially admitted to ICU on BiPAP, stepped-down to [facility] 05/25/22 Metabolic alkalosis chronic 7.47/40/64/30 continue supplemental oxygen cxr unchanged Macular papular rash to bilateral lower extremities. Resolved Unknown origin Patient reports he has had this previously in the past Hydrocortisone ointment prn Acute hypoxic respiratory failure secondary to COPD exacerbation and community-acquired pneumonia. Resolved status post vancomycin, Zosyn, Augmentin and doxycycline Goal O2 saturation 88-92% baseline oxygen requirement 4 L Continue theophylline, Spiriva, Breo, and updrafts. steroids weaned Seen and evaluated by pulmonology - will need outpatient follow up prn breathing treatments Sinus tachycardia. Likely secondary to multiple updraft treatments, and theophylline changed to zopenex theophylline level 20.4, dose of theophylline decreased to once daily echo with preserved LVEF Thrombocytopenia secondary to infection stable Anxiety supportive care Left hip pain xray with no acute changes weaned off oxycodone prn tylenol History of substance abuse Continue methadone DVT prophylaxis- loveminoo attending Dr. Palmer Full code Disposition - family unable to care for him at home, CM looking for placement encourage OOB to chair and ambulation Continue hospitalization for safe discharge placement Time Spent With Patient Time: Total time managing care of this patient today ____ minutes. Quality Stroke Does the patient have a stroke diagnosis?: No VTE Prior VTE?: No VTE Risk Level:: Medical - moderate - high VTE Device Contraindication: Treatment Not Indicated VTE Drug Contraindication: N/A - Med Ordered
[2022-07-07] MEDS: Enoxaparin Sodium 40 MG/0.4 ML SYRINGE SUBCUT (17:19)
[2022-07-07] MEDS: Theophylline Anhydrous ER 400 MG TAB.ER.24H 200 MG PO (20:40)
[2022-07-07] MEDS: Docusate Sodium 100 MG CAPSULE 200 MG PO (20:41)
[2022-07-08 04:00] VITALS: BP 116/78; PULSE 100; RESP 20; TEMP 36.2; O2SAT 91
[2022-07-08] MEDS: Omeprazole 20 MG CAPSULE.DR PO (05:41)
[2022-07-08] MEDS: Magnesium Hydrox/Alum Hydrox 30 ML ORAL.SUSP 15 ML PO (05:44)
[2022-07-08] MEDS: Acetaminophen 325 MG TABLET 650 MG PO ×2 (05:44→17:08)
[2022-07-08 06:00] VITALS: BMI 16.7
[2022-07-08 08:00] VITALS: BP 104/70; PULSE 108; RESP 20; TEMP 36.6; O2SAT 91
[2022-07-08] MEDS: Fluticasone/Vilanterol 200/25 BLST.W.DEV 1 PUFF INHALE (08:24)
[2022-07-08 08:27] VITALS: PULSE 98; RESP 16; O2SAT 94
[2022-07-08] MEDS: methADONE HCl 20 MG/2 ML ORAL.CONC 30 MG PO (09:31)
[2022-07-08] MEDS: PARoxetine HCL 10 MG TABLET PO (09:31)
[2022-07-08] MEDS: Mineral Oil/Petrolatum,White 106 GM Tube 1 APPL TOPICAL ×2 (09:31→21:26)
[2022-07-08 11:57] VITALS: BP 121/79; PULSE 101; RESP 22; TEMP 36.6; O2SAT 95
--- NOTE | 2022-07-08 13:59 | P.PNIM_ITS ---
Subjective Subjective Date of Service: 07/08/22 Interval History: seen and examined this morning follow up for placement no overnight events no change in status - patient has been trying to walk about/get up to chair/do more activity in room no sob Review of Systems Review of Systems: Yes all other systems are reviewed and are negative Constitutional Constitutional: Denies chills and Denies fever(s) Cardiovascular Cardiovascular: Denies chest pain, Denies palpitations and Denies dyspnea Respiratory Respiratory: Reports cough and Denies dyspnea Gastrointestinal Gastrointestinal: Denies abdominal pain, Denies nausea and Denies vomiting Endocrine Endocrine: Denies palpitations Physical Exam Vital Signs: Vital Signs: Last Vital Signs Temp 97.8 F 07/08/22 11:57 Pulse 101 H 07/08/22 11:57 Resp 22 H 07/08/22 11:57 BP 121/79 07/08/22 11:57 Pulse Ox 95 07/08/22 11:57 O2 Del Method 07/08/22 11:57 O2 Flow Rate 4 07/08/22 11:57 FiO2 45 06/07/22 19:41 Oxygen Flow Rate 70 05/23/22 21:38 BMI result Body Mass Index 16.7 Const: General: cooperative, comfortable, no acute distress, alert and awake Nutritional Appearance: thin Resp: Effort & Inspection: normal respiratory effort, able to speak in complete sentences, no respiratory distress and no use of accessory muscles Cardio: Rate: regular rate and tachycardic Heart sounds: S1 normal heart sound present and S2 normal heart sound present GI: Inspection: No distended Palpation (GI): Soft to palpation and nontender Neuro: Other: grossly nonfocal Extrem: Other: able to move all 4 extremities General: Yes no pedal edema Objective Data Active Medications Acetaminophen (Acetaminophen 325 Mg Tablet) 650 mg PO Q6H PRN PRN Reason: Pain, Mild (Pain Scale 1-3) Last Admin: 07/08/22 05:44 Dose: 650 mg Documented By: SARWAT Al Hydroxide/Mg Hydroxide (Magnesium Hydrox/Alum Hydrox 30 Ml Oral.Susp) 15 ml PO Q4H PRN PRN Reason: heartburn Last Admin: 07/08/22 05:44 Dose: 15 ml Documented By: SARWAT Docusate Sodium (Docusate Sodium 100 Mg Capsule) 200 mg PO BEDTIME [facility] Last Admin: 07/07/22 20:41 Dose: 200 mg Documented By: SARWAT Enoxaparin Sodium (Enoxaparin Sodium 40 Mg/0.4 Ml Syringe) 40 mg SUBCUT Q24H [facility] Last Admin: 07/07/22 17:19 Dose: 40 mg Documented By: JOHN Fluticasone/Vilanterol (Fluticasone/Vilanterol 200/25 Blst.W.Dev) 1 puff INHALE RDAILY [facility] Last Admin: 07/08/22 08:24 Dose: 1 puff Documented By: JOLENE Guaifenesin/Dextromethorphan (Guaifenesin Dm 100/10/5 Ml 5 Ml Syrup) 10 ml PO TID PRN PRN Reason: cough Hydrocortisone (Hydrocortisone 1 % Ointment 28.35 Gm Tube) 1 appl TOPICAL BID PRN; Protocol PRN Reason: itching Methadone HCl (Methadone Hcl 20 Mg/2 Ml Oral.Conc) 30 mg PO DAILY [facility] Last Admin: 07/08/22 09:31 Dose: 30 mg Documented By: ADRIA Multi-Ingred Cream/Lotion/Oil/Oint (Mineral Oil/Petrolatum,White 106 Gm Tube) 1 appl TOPICAL BID [facility]; Protocol Last Admin: 07/08/22 09:31 Dose: 1 appl Documented By: ADRIA Omeprazole (Omeprazole 20 Mg Capsule.Dr) 20 mg PO DAILY@0630 [facility] Last Admin: 07/08/22 05:41 Dose: 20 mg Documented By: SARWAT Ondansetron HCl (Ondansetron Hcl 4 Mg/2 Ml Vial) 4 mg IVPUSH Q8H PRN PRN Reason: Nausea and Vomiting Last Admin: 06/18/22 19:44 Dose: 4 mg Documented By: JACKELYN Paroxetine HCl (Paroxetine Hcl 10 Mg Tablet) 10 mg PO DAILY [facility] Last Admin: 07/08/22 09:31 Dose: 10 mg Documented By: ADRIA Theophylline (Theophylline Anhydrous Er 400 Mg Tab.Er.24h) 200 mg PO BEDTIME [facility] Last Admin: 07/07/22 20:40 Dose: 200 mg Documented By: SARWAT Tiotropium [place] (Tiotropium [place] 18 Mcg Cap.W.Dev) 1 puff INHALE RDAILY [facility] Last Admin: 07/08/22 08:24 Dose: 1 puff Documented By: MARSHALLLH Labs 07/03/22 11:42 07/03/22 11:42 Assessment and Plan (1) Tachycardia: Status: Acute (2) COPD (chronic obstructive pulmonary disease): Status: Acute Plan 56yo M with COPD, chronic hypoxia on 4L O2, HCV, IDU + pulmonary nodules pr esenting with dyspnea + hypoxia, initially admitted to ICU on BiPAP, stepped- down to [facility] [place] 05/25/22 Metabolic alkalosis chronic 7.47/40/64/30 continue supplemental oxygen cxr unchanged Macular papular rash to bilateral lower extremities. Resolved Hydrocortisone ointment prn Acute hypoxic respiratory failure secondary to COPD exacerbation and community- acquired pneumonia. Resolved status post vancomycin, Zosyn, Augmentin and doxycycline Goal O2 saturation 88-92% baseline oxygen requirement 4 L Continue theophylline, Spiriva, Breo, and updrafts. steroids weaned Seen and evaluated by pulmonology - will need outpatient follow up prn breathing treatments Sinus tachycardia. Likely secondary to multiple updraft treatments, and theophylline changed to zopenex theophylline decreased to once daily echo with preserved LVEF Thrombocytopenia secondary to infection stable Anxiety supportive care Left hip pain xray with no acute changes weaned off oxycodone prn tylenol History of substance abuse Continue methadone DVT prophylaxis- dilshad attending Dr. Putnam Full code Disposition - family unable to care for him at home, CM looking for placement encourage OOB to chair and ambulation Continue hospitalization for safe discharge placement Time Spent With Patient Time: Total time managing care of this patient today ____ minutes. Quality Stroke Does the patient have a stroke diagnosis?: No VTE Prior VTE?: No VTE Risk Level:: Medical - moderate - high VTE Device Contraindication: Treatment Not Indicated VTE Drug Contraindication: N/A - Med Ordered
[2022-07-08 15:03] VITALS: BP 111/73; PULSE 101; RESP 20; TEMP 37.2; O2SAT 91
[2022-07-08] MEDS: Enoxaparin Sodium 40 MG/0.4 ML SYRINGE SUBCUT (17:08)
--- NOTE | 2022-07-08 17:13 | PC.NURSE ---
Pt maintaining O2 sat 88%+. PRN tylenol given for pain w/ minimal effect.
[2022-07-08 20:00] VITALS: BP 110/73; PULSE 97; RESP 18; TEMP 36.1; O2SAT 92
[2022-07-08] MEDS: Theophylline Anhydrous ER 400 MG TAB.ER.24H 200 MG PO (21:25)
[2022-07-09] VITALS (8 sets, daily range): BP systolic 103–118; BP diastolic 59–79; PULSE 87–98; RESP 16–22; TEMP 36.3–36.7; O2SAT 92–97; BMI 17.2
[2022-07-09] MEDS: Acetaminophen 325 MG TABLET 650 MG PO ×2 (05:54→12:41)
[2022-07-09] MEDS: Omeprazole 20 MG CAPSULE.DR PO (05:54)
[2022-07-09] MEDS: Fluticasone/Vilanterol 200/25 BLST.W.DEV 1 PUFF INHALE (09:04)
[2022-07-09] MEDS: PARoxetine HCL 10 MG TABLET PO (10:19)
[2022-07-09] MEDS: methADONE HCl 20 MG/2 ML ORAL.CONC 30 MG PO (10:19)
[2022-07-09] MEDS: Mineral Oil/Petrolatum,White 106 GM Tube 1 APPL TOPICAL ×2 (10:23→20:24)
--- NOTE | 2022-07-09 12:46 | HO.PM.IMPN ---
Subjective Subjective Date of Service: 07/09/22 Interval History: seen and examined this morning follow up for placement no overnight events still having some right hip pain reports he moving around in room and up to chair Review of Systems Review of Systems: Yes all other systems are reviewed and are negative Constitutional Constitutional: Denies chills and Denies fever(s) ENT Ears, Nose, Mouth, and Throat: Denies dizziness Cardiovascular Cardiovascular: Denies chest pain, Denies palpitations and Denies dyspnea Respiratory Respiratory: Denies cough and Denies dyspnea Gastrointestinal Gastrointestinal: Denies abdominal pain and Denies vomiting Neurologic Neurologic: Denies dizziness Endocrine Endocrine: Denies palpitations Physical Exam Vital Signs: Vital Signs: Last Vital Signs Temp 97.9 F 07/09/22 11:25 Pulse 97 07/09/22 11:25 Resp 20 07/09/22 11:25 BP 117/72 07/09/22 11:25 Pulse Ox 97 07/09/22 11:25 O2 Del Method 07/09/22 11:25 O2 Flow Rate 4 07/09/22 11:25 FiO2 45 06/07/22 19:41 Oxygen Flow Rate 70 05/23/22 21:38 BMI result Body Mass Index 17.2 Const: General: cooperative, comfortable, no acute distress, alert and awake Nutritional Appearance: thin Resp: Effort & Inspection: normal respiratory effort, able to speak in complete sentences, no respiratory distress and no use of accessory muscles Cardio: Rate: regular rate Heart sounds: S1 normal heart sound present and S2 normal heart sound present GI: Inspection: No distended Palpation (GI): Soft to palpation and nontender Neuro: Other: grossly nonfocal Extrem: Other: able to move all 4 extremities General: Yes no pedal edema Objective Data Active Medications Acetaminophen (Acetaminophen 325 Mg Tablet) 650 mg PO Q6H PRN PRN Reason: Pain, Mild (Pain Scale 1-3) Last Admin: 07/09/22 12:41 Dose: 650 mg Documented By: CLAUDIA Al Hydroxide/Mg Hydroxide (Magnesium Hydrox/Alum Hydrox 30 Ml Oral.Susp) 15 ml PO Q4H PRN PRN Reason: heartburn Last Admin: 07/08/22 05:44 Dose: 15 ml Documented By: SARWAT Docusate Sodium (Docusate Sodium 100 Mg Capsule) 200 mg PO BEDTIME [facility] Last Admin: 07/08/22 21:29 Dose: Not Given Documented By: GRACE Non-Admin Reason: Patient Refused Enoxaparin Sodium (Enoxaparin Sodium 40 Mg/0.4 Ml Syringe) 40 mg SUBCUT Q24H [facility] Last Admin: 07/08/22 17:08 Dose: 40 mg Documented By: CARLIE-SOFFA Fluticasone/Vilanterol (Fluticasone/Vilanterol 200/25 Blst.W.Dev) 1 puff INHALE RDAILY [facility] Last Admin: 07/09/22 09:04 Dose: 1 puff Documented By: JOLENE Guaifenesin/Dextromethorphan (Guaifenesin Dm 100/10/5 Ml 5 Ml Syrup) 10 ml PO TID PRN PRN Reason: cough Hydrocortisone (Hydrocortisone 1 % Ointment 28.35 Gm Tube) 1 appl TOPICAL BID PRN; Protocol PRN Reason: itching Methadone HCl (Methadone Hcl 20 Mg/2 Ml Oral.Conc) 30 mg PO DAILY [facility] Last Admin: 07/09/22 10:19 Dose: 30 mg Documented By: CLAUDIA Multi-Ingred Cream/Lotion/Oil/Oint (Mineral Oil/Petrolatum,White 106 Gm Tube) 1 appl TOPICAL BID [facility]; Protocol Last Admin: 07/09/22 10:23 Dose: 1 appl Documented By: CLAUDIA Omeprazole (Omeprazole 20 Mg Capsule.Dr) 20 mg PO DAILY@0630 [facility] Last Admin: 07/09/22 05:54 Dose: 20 mg Documented By: GRACE Ondansetron HCl (Ondansetron Hcl 4 Mg/2 Ml Vial) 4 mg IVPUSH Q8H PRN PRN Reason: Nausea and Vomiting Last Admin: 06/18/22 19:44 Dose: 4 mg Documented By: JACKELYN Paroxetine HCl (Paroxetine Hcl 10 Mg Tablet) 10 mg PO DAILY [facility] Last Admin: 07/09/22 10:19 Dose: 10 mg Documented By: CLAUDIA Theophylline (Theophylline Anhydrous Er 400 Mg Tab.Er.24h) 200 mg PO BEDTIME [facility] Last Admin: 07/08/22 21:25 Dose: 200 mg Documented By: GRACE Tiotropium [place] (Tiotropium [place] 18 Mcg Cap.W.Dev) 1 puff INHALE MELISSA [facility] Last Admin: 07/09/22 09:04 Dose: 1 puff Documented By: JOLENE Labs 07/03/22 11:42 07/03/22 11:42 Assessment and Plan (1) COPD (chronic obstructive pulmonary disease): Status: Acute Plan 56yo M with COPD, chronic hypoxia on 4L O2, HCV, IDU + pulmonary nodules presenting with dyspnea + hypoxia, initially admitted to ICU on BiPAP, stepped-down to [facility] 05/25/22 Metabolic alkalosis chronic 7.47/40/64/30 continue supplemental oxygen cxr unchanged Macular papular rash to bilateral lower extremities. Resolved Hydrocortisone ointment prn Acute hypoxic respiratory failure secondary to COPD exacerbation and community-acquired pneumonia. Resolved status post vancomycin, Zosyn, Augmentin and doxycycline Goal O2 saturation 88-92% baseline oxygen requirement 4 L Continue theophylline, Spiriva, Breo, and updrafts. steroids weaned Seen and evaluated by pulmonology - will need outpatient follow up prn breathing treatments Sinus tachycardia. Likely secondary to multiple updraft treatments, and theophylline changed to zopenex theophylline decreased to once daily echo with preserved LVEF Thrombocytopenia secondary to infection stable Anxiety supportive care Left hip pain xray with no acute changes weaned off oxycodone prn tylenol, ultram History of substance abuse Continue methadone DVT prophylaxis- dilshad attending Dr. Esqueda Full code Disposition - family unable to care for him at home, CM looking for placement encourage OOB to chair and ambulation Continue hospitalization for safe discharge placement Time Spent With Patient Time: Total time managing care of this patient today ____ minutes. Quality Stroke Does the patient have a stroke diagnosis?: No VTE Prior VTE?: No VTE Risk Level:: Medical - moderate - high VTE Device Contraindication: Treatment Not Indicated VTE Drug Contraindication: N/A - Med Ordered
[2022-07-09] MEDS: traMADoL HCL 50 MG TABLET 25 MG PO (12:55)
[2022-07-09] MEDS: Enoxaparin Sodium 40 MG/0.4 ML SYRINGE SUBCUT (17:45)
--- NOTE | 2022-07-09 18:10 | PC.NURSE ---
PATIENT COMPLAINING OF R HIP PAIN, CHRONIC. SEE PAIN ASSESSMENT. PATIENT GIVEN 650 TYLENOL WITH MINIMAL EFFECT NOTED. PA MADE AWARE OF MINIMAL EFFECT AND PATIENT STATEMENT FOR FURTHER PAIN MANAGEMENT. TRAMODOL PRN ORDER PLACED PER PA. TRAMODOL 25MG GIVEN PRN, SEE EMAR. GOOD EFFECT NOTED PER PATIENT STATEMENT. PATIENT MADE AWARE OF CURRENT HEALTH STATUS.
[2022-07-09] MEDS: Theophylline Anhydrous ER 400 MG TAB.ER.24H 200 MG PO (20:23)
[2022-07-09] MEDS: Docusate Sodium 100 MG CAPSULE 200 MG PO (20:26)
[2022-07-10] MEDS: traMADoL HCL 50 MG TABLET 25 MG PO ×2 (00:56→17:21)
[2022-07-10 03:20] VITALS: BP 114/71; PULSE 92; RESP 20; TEMP 36.7; O2SAT 93
[2022-07-10 06:00] VITALS: BMI 18.1
[2022-07-10] MEDS: Omeprazole 20 MG CAPSULE.DR PO (06:00)
[2022-07-10] MEDS: Fluticasone/Vilanterol 200/25 BLST.W.DEV 1 PUFF INHALE (07:58)
[2022-07-10 08:00] VITALS: BP 135/80; PULSE 87; PULSE 99; RESP 16; RESP 18; TEMP 36.6; O2SAT 91; O2SAT 94
[2022-07-10] MEDS: PARoxetine HCL 10 MG TABLET PO (08:14)
[2022-07-10] MEDS: methADONE HCl 20 MG/2 ML ORAL.CONC 30 MG PO (08:15)
[2022-07-10] MEDS: Mineral Oil/Petrolatum,White 106 GM Tube 1 APPL TOPICAL ×2 (08:16→20:03)
[2022-07-10 08:50] LABS: Hematocrit 38.9 % (42.0-52.0); Hemoglobin 13.2 g/dl (14.0-18.0); Mean Corpuscular HGB Conc 33.9 g/dl (31.0-36.0); Mean Corpuscular Hemoglobin 26.4 pg (27.0-33.0); Mean Corpuscular Volume 77.8 fL (80.0-98.0); Platelet Count 183 X10*3/uL (160-400); Red Cell Distribution Width 14.2 % (11.0-16.0); White Blood Count 11.7 X10*3/uL (4.8-10.8)
[2022-07-10 09:09] LABS: Anion Gap 13 (12-20); Blood Urea Nitrogen 14 mg/dL (9-16); Calcium 8.8 mg/dL (8.4-10.2); Carbon Dioxide 25 mmol/L (22-29); Chloride 102 mmol/L (96-108); Creatinine Clr Calc Pharmacy 92.5; Estimated Glomerular Filt Rate > 60; Glucose Random 97 mg/dL (60-115); Potassium 4.2 mmol/L (3.3-5.1); Sodium 136 mmol/L (135-145)
--- NOTE | 2022-07-10 10:20 | MHC.CM.PN ---
CM has updated SNF referrals. Initial PCP appointment is set for 07/21/2022. Home vs STR is the plan and CM will continue to follow.
[2022-07-10 11:11] VITALS: BP 129/83; PULSE 104; RESP 18; TEMP 36.4; O2SAT 91
--- NOTE | 2022-07-10 11:31 | HO.PM.IMPN ---
Subjective Subjective Date of Service: 07/10/22 Interval History: seen and examined this morning follow up for placement no overnight events reports he moving around in room and up to chair Review of Systems Review of Systems: Yes all other systems are reviewed and are negative Constitutional Constitutional: Denies chills and Denies fever(s) ENT Ears, Nose, Mouth, and Throat: Denies dizziness Cardiovascular Cardiovascular: Denies chest pain, Denies palpitations and Denies dyspnea Respiratory Respiratory: Denies cough and Denies dyspnea Gastrointestinal Gastrointestinal: Denies abdominal pain and Denies vomiting Neurologic Neurologic: Denies dizziness Endocrine Endocrine: Denies palpitations Physical Exam Vital Signs: Vital Signs: Last Vital Signs Temp 97.6 F 07/10/22 11:11 Pulse 104 H 07/10/22 11:11 Resp 18 07/10/22 11:11 BP 129/83 07/10/22 11:11 Pulse Ox 91 L 07/10/22 11:11 O2 Del Method 07/10/22 11:11 O2 Flow Rate 4 07/10/22 11:11 FiO2 45 06/07/22 19:41 Oxygen Flow Rate 70 05/23/22 21:38 BMI result Body Mass Index 18.1 Appearing in no acute distress lung sounds are clear to auscultation heart regular rate rhythm, clear S1, S2 positive bowel sounds, abdomen is soft, nontender neuro patient is alert x3, no focal deficits Objective Data Active Medications Acetaminophen (Acetaminophen 325 Mg Tablet) 650 mg PO Q6H PRN PRN Reason: Pain, Mild (Pain Scale 1-3) Last Admin: 07/09/22 12:41 Dose: 650 mg Documented By: CLAUDIA Al Hydroxide/Mg Hydroxide (Magnesium Hydrox/Alum Hydrox 30 Ml Oral.Susp) 15 ml PO Q4H PRN PRN Reason: heartburn Last Admin: 07/08/22 05:44 Dose: 15 ml Documented By: DESCODI Docusate Sodium (Docusate Sodium 100 Mg Capsule) 200 mg PO BEDTIME [facility] Last Admin: 07/09/22 20:26 Dose: 100 mg Documented By: FIDEL Enoxaparin Sodium (Enoxaparin Sodium 40 Mg/0.4 Ml Syringe) 40 mg SUBCUT Q24H [facility] Last Admin: 07/09/22 17:45 Dose: 40 mg Documented By: CLAUDIA Fluticasone/Vilanterol (Fluticasone/Vilanterol 200/25 Blst.W.Dev) 1 puff INHALE RDAILY [facility] Last Admin: 07/10/22 07:58 Dose: 1 puff Documented By: TRI Guaifenesin/Dextromethorphan (Guaifenesin Dm 100/10/5 Ml 5 Ml Syrup) 10 ml PO TID PRN PRN Reason: cough Hydrocortisone (Hydrocortisone 1 % Ointment 28.35 Gm Tube) 1 appl TOPICAL BID PRN; Protocol PRN Reason: itching Methadone HCl (Methadone Hcl 20 Mg/2 Ml Oral.Conc) 30 mg PO DAILY [facility] Last Admin: 07/10/22 08:15 Dose: 30 mg Documented By: ALISSA Multi-Ingred Cream/Lotion/Oil/Oint (Mineral Oil/Petrolatum,White 106 Gm Tube) 1 appl TOPICAL BID [facility]; Protocol Last Admin: 07/10/22 08:16 Dose: 1 appl Documented By: ALISSA Omeprazole (Omeprazole 20 Mg Capsule.Dr) 20 mg PO DAILY@0630 [facility] Last Admin: 07/10/22 06:00 Dose: 20 mg Documented By: ANNE Ondansetron HCl (Ondansetron Hcl 4 Mg/2 Ml Vial) 4 mg IVPUSH Q8H PRN PRN Reason: Nausea and Vomiting Last Admin: 06/18/22 19:44 Dose: 4 mg Documented By: JACKELYN Paroxetine HCl (Paroxetine Hcl 10 Mg Tablet) 10 mg PO DAILY [facility] Last Admin: 07/10/22 08:14 Dose: 10 mg Documented By: ALISSA Theophylline (Theophylline Anhydrous Er 400 Mg Tab.Er.24h) 200 mg PO BEDTIME [facility] Last Admin: 07/09/22 20:23 Dose: 200 mg Documented By: FIDEL Tiotropium [place] (Tiotropium [place] 18 Mcg Cap.W.Dev) 1 puff INHALE RDAILY [facility] Last Admin: 07/10/22 07:58 Dose: 1 puff Documented By: TRI Tramadol HCl (Tramadol Hcl 50 Mg Tablet) 25 mg PO Q6H PRN PRN Reason: Pain, Moderate (Pain Scale 4-6 Last Admin: 07/10/22 00:56 Dose: 25 mg Documented By: ANNE Comments: Labs 07/10/22 08:38 07/10/22 08:38 Labs: Laboratory Results - last 24 hr 07/10/22 07/10/22 08:38 08:38 MCV 77.8 L MCH 26.4 L MCHC 33.9 RDW 14.2 Plt Count 183 D MPV 9.0 L Absolute Nucleated RBC 0.000 Nucleated RBC % (auto) 0.0 Anion Gap 13 Estim Creat Clear Calc 92.5 Estimated GFR > 60 Random Glucose 97 Calcium 8.8 Assessment and Plan (1) COPD (chronic obstructive pulmonary disease): Status: Acute Plan 56yo M with COPD, chronic hypoxia on 4L O2, HCV, IDU + pulmonary nodules presenting with dyspnea + hypoxia, initially admitted to ICU on BiPAP, stepped-down to [facility] [place] 05/25/22 Labs drawn, no abnormalities Metabolic alkalosis chronic 7.47/40/64/30 continue supplemental oxygen cxr unchanged Macular papular rash to bilateral lower extremities. Resolved Hydrocortisone ointment prn Acute hypoxic respiratory failure secondary to COPD exacerbation and community-acquired pneumonia. Resolved status post vancomycin, Zosyn, Augmentin and doxycycline Goal O2 saturation 88-92% baseline oxygen requirement 4 L Continue theophylline, Spiriva, Breo, and updrafts. steroids weaned Seen and evaluated by pulmonology - will need outpatient follow up prn breathing treatments Sinus tachycardia. Likely secondary to multiple updraft treatments, and theophylline changed to zopenex theophylline decreased to once daily echo with preserved LVEF Thrombocytopenia secondary to infection stable Anxiety supportive care Left hip pain xray with no acute changes weaned off oxycodone prn tylenol, ultram History of substance abuse Continue methadone DVT prophylaxis- lovenox attending Dr. Palmer Full code Disposition - family unable to care for him at home, CM looking for placement encourage OOB to chair and ambulation Continue hospitalization for safe discharge placement Time Spent With Patient Time: Total time managing care of this patient today ____ minutes. Quality Stroke Does the patient have a stroke diagnosis?: No VTE Prior VTE?: No VTE Risk Level:: Medical - moderate - high VTE Device Contraindication: Treatment Not Indicated VTE Drug Contraindication: N/A - Med Ordered
[2022-07-10 15:15] VITALS: BP 115/76; PULSE 108; RESP 18; TEMP 36.3; O2SAT 89
[2022-07-10] MEDS: Enoxaparin Sodium 40 MG/0.4 ML SYRINGE SUBCUT (17:18)
[2022-07-10] MEDS: Acetaminophen 325 MG TABLET 650 MG PO (17:21)
[2022-07-10 19:45] VITALS: BP 108/76; PULSE 82; RESP 16; TEMP 37.1; O2SAT 95
[2022-07-10] MEDS: Docusate Sodium 100 MG CAPSULE 200 MG PO (20:02)
[2022-07-10] MEDS: Theophylline Anhydrous ER 400 MG TAB.ER.24H 200 MG PO (20:02)
[2022-07-11] VITALS (7 sets, daily range): BP systolic 105–118; BP diastolic 66–78; PULSE 74–97; RESP 16–20; TEMP 36.3–36.7; O2SAT 88–94; BMI 18.1
[2022-07-11] MEDS: Omeprazole 20 MG CAPSULE.DR PO (05:40)
[2022-07-11] MEDS: traMADoL HCL 50 MG TABLET 25 MG PO ×2 (05:43→17:14)
[2022-07-11] MEDS: methADONE HCl 20 MG/2 ML ORAL.CONC 30 MG PO (07:54)
[2022-07-11] MEDS: Mineral Oil/Petrolatum,White 106 GM Tube 1 APPL TOPICAL ×2 (07:55→20:00)
[2022-07-11] MEDS: Acetaminophen 325 MG TABLET 650 MG PO ×2 (07:55→17:14)
[2022-07-11] MEDS: PARoxetine HCL 10 MG TABLET PO (07:55)
[2022-07-11] MEDS: Fluticasone/Vilanterol 200/25 BLST.W.DEV 1 PUFF INHALE (08:20)
--- NOTE | 2022-07-11 08:24 | PC.RT ---
pharmacy called again day 2 for spiriva tablets for patient med. will check back after
--- NOTE | 2022-07-11 10:54 | MHC.CM.PN ---
Per ROUNDS discussion, Patient has been referred to [facility]; CM will follow.
--- NOTE | 2022-07-11 11:07 | HO.PM.IMPN ---
Subjective Subjective Date of Service: 07/11/22 Interval History: seen and examined this morning follow up for placement no overnight events reports he moving around in room and up to chair Review of Systems Review of Systems: Yes all other systems are reviewed and are negative Constitutional Constitutional: Denies chills and Denies fever(s) ENT Ears, Nose, Mouth, and Throat: Denies dizziness Cardiovascular Cardiovascular: Denies chest pain, Denies palpitations and Denies dyspnea Respiratory Respiratory: Denies cough and Denies dyspnea Gastrointestinal Gastrointestinal: Denies abdominal pain and Denies vomiting Neurologic Neurologic: Denies dizziness Endocrine Endocrine: Denies palpitations Physical Exam Vital Signs: Vital Signs: Last Vital Signs Temp 97.6 F 07/11/22 07:25 Pulse 94 07/11/22 08:21 Resp 18 07/11/22 08:21 BP 112/77 07/11/22 07:25 Pulse Ox 91 L 07/11/22 07:25 O2 Del Method 07/11/22 07:25 O2 Flow Rate 4 07/11/22 07:25 FiO2 45 06/07/22 19:41 Oxygen Flow Rate 70 05/23/22 21:38 BMI result Body Mass Index 18.1 Appearing in no acute distress lung sounds are clear to auscultation heart regular rate rhythm, clear S1, S2 positive bowel sounds, abdomen is soft, nontender neuro patient is alert x3, no focal deficits Objective Data Active Medications Acetaminophen (Acetaminophen 325 Mg Tablet) 650 mg PO Q6H PRN PRN Reason: Pain, Mild (Pain Scale 1-3) Last Admin: 07/11/22 07:55 Dose: 650 mg Documented By: ALISSA Al Hydroxide/Mg Hydroxide (Magnesium Hydrox/Alum Hydrox 30 Ml Oral.Susp) 15 ml PO Q4H PRN PRN Reason: heartburn Last Admin: 07/08/22 05:44 Dose: 15 ml Documented By: SARWAT Docusate Sodium (Docusate Sodium 100 Mg Capsule) 200 mg PO BEDTIME [facility] Last Admin: 07/10/22 20:02 Dose: 100 mg Documented By: JOVAN Comments: pt requesting only 100 mg Enoxaparin Sodium (Enoxaparin Sodium 40 Mg/0.4 Ml Syringe) 40 mg SUBCUT Q24H [facility] Last Admin: 07/10/22 17:18 Dose: 40 mg Documented By: ALISSA Fluticasone/Vilanterol (Fluticasone/Vilanterol 200/25 Blst.W.Dev) 1 puff INHALE RDAILY [facility] Last Admin: 07/11/22 08:20 Dose: 1 puff Documented By: ROSALIA Guaifenesin/Dextromethorphan (Guaifenesin Dm 100/10/5 Ml 5 Ml Syrup) 10 ml PO TID PRN PRN Reason: cough Hydrocortisone (Hydrocortisone 1 % Ointment 28.35 Gm Tube) 1 appl TOPICAL BID PRN; Protocol PRN Reason: itching Methadone HCl (Methadone Hcl 20 Mg/2 Ml Oral.Conc) 30 mg PO DAILY [facility] Last Admin: 07/11/22 07:54 Dose: 30 mg Documented By: ALISSA Multi-Ingred Cream/Lotion/Oil/Oint (Mineral Oil/Petrolatum,White 106 Gm Tube) 1 appl TOPICAL BID [facility]; Protocol Last Admin: 07/11/22 07:55 Dose: 1 appl Documented By: ALISSA Omeprazole (Omeprazole 20 Mg Capsule.Dr) 20 mg PO DAILY@0630 [facility] Last Admin: 07/11/22 05:40 Dose: 20 mg Documented By: JOSE ALBERTO Ondansetron HCl (Ondansetron Hcl 4 Mg/2 Ml Vial) 4 mg IVPUSH Q8H PRN PRN Reason: Nausea and Vomiting Last Admin: 06/18/22 19:44 Dose: 4 mg Documented By: JACKELYN Paroxetine HCl (Paroxetine Hcl 10 Mg Tablet) 10 mg PO DAILY [facility] Last Admin: 07/11/22 07:55 Dose: 10 mg Documented By: ALISSA Theophylline (Theophylline Anhydrous Er 400 Mg Tab.Er.24h) 200 mg PO BEDTIME [facility] Last Admin: 07/10/22 20:02 Dose: 200 mg Documented By: JOVAN Tiotropium [place] (Tiotropium [place] 18 Mcg Cap.W.Dev) 1 puff INHALE RDAILY [facility] Last Admin: 07/10/22 07:58 Dose: 1 puff Documented By: TRI Tramadol HCl (Tramadol Hcl 50 Mg Tablet) 25 mg PO Q6H PRN PRN Reason: Pain, Moderate (Pain Scale 4-6 Last Admin: 07/11/22 05:43 Dose: 25 mg Documented By: JOSE ALBERTO Labs 07/10/22 08:38 07/10/22 08:38 Assessment and Plan (1) COPD (chronic obstructive pulmonary disease): Status: Acute Plan 56yo M with COPD, chronic hypoxia on 4L O2, HCV, IDU + pulmonary nodules presenting with dyspnea + hypoxia, initially admitted to ICU on BiPAP, stepped-down to [facility] 05/25/22 Metabolic alkalosis chronic 7.47/40/64/30 continue supplemental oxygen cxr unchanged Macular papular rash to bilateral lower extremities. Resolved Hydrocortisone ointment prn Acute hypoxic respiratory failure secondary to COPD exacerbation and community-acquired pneumonia. Resolved status post vancomycin, Zosyn, Augmentin and doxycycline Goal O2 saturation 88-92% baseline oxygen requirement 4 L Continue theophylline, Spiriva, Breo, and updrafts. steroids weaned Seen and evaluated by pulmonology - will need outpatient follow up prn breathing treatments Sinus tachycardia. Likely secondary to multiple updraft treatments, and theophylline changed to zopenex theophylline decreased to once daily echo with preserved LVEF Thrombocytopenia secondary to infection stable Anxiety supportive care Left hip pain xray with no acute changes weaned off oxycodone prn tylenol, ultram History of substance abuse Continue methadone DVT prophylaxis- dilshad attending Dr. Palmer Full code Disposition - family unable to care for him at home, CM looking for placement encourage OOB to chair and ambulation Continue hospitalization for safe discharge placement Time Spent With Patient Time: Total time managing care of this patient today ____ minutes. Quality Stroke Does the patient have a stroke diagnosis?: No VTE Prior VTE?: No VTE Risk Level:: Medical - moderate - high VTE Device Contraindication: Treatment Not Indicated VTE Drug Contraindication: N/A - Med Ordered
[2022-07-11] MEDS: Enoxaparin Sodium 40 MG/0.4 ML SYRINGE SUBCUT (17:15)
[2022-07-11] MEDS: Theophylline Anhydrous ER 400 MG TAB.ER.24H 200 MG PO (19:58)
[2022-07-11] MEDS: Docusate Sodium 100 MG CAPSULE 200 MG PO (19:59)
[2022-07-12] VITALS (9 sets, daily range): BP systolic 103–119; BP diastolic 66–76; PULSE 79–107; RESP 16–20; TEMP 36.3–36.9; O2SAT 88–96; BMI 18.3
[2022-07-12] MEDS: Omeprazole 20 MG CAPSULE.DR PO (04:54)
[2022-07-12] MEDS: Acetaminophen 325 MG TABLET 650 MG PO ×2 (04:56→17:52)
[2022-07-12] MEDS: Fluticasone/Vilanterol 200/25 BLST.W.DEV 1 PUFF INHALE (07:56)
[2022-07-12] MEDS: PARoxetine HCL 10 MG TABLET PO (08:29)
[2022-07-12] MEDS: methADONE HCl 20 MG/2 ML ORAL.CONC 30 MG PO (08:29)
[2022-07-12] MEDS: Mineral Oil/Petrolatum,White 106 GM Tube 1 APPL TOPICAL (08:30)
--- NOTE | 2022-07-12 10:36 | MHC.CM.PN ---
SNF search is ongoing; CM will continue to follow.
--- NOTE | 2022-07-12 14:45 | HO.PM.IMPN ---
Subjective Subjective Date of Service: 07/12/22 Interval History: Being followed for placement, has been ambulating in room denies worsening shortness of breath or cough, no acute events overnight, no fevers no chills, tolerating diet, no nausea, no vomiting, no abdominal pain, denies dizziness, or lightheadedness. Review of Systems Review of Systems: Yes all other systems are reviewed and are negative Physical Exam Vital Signs: Vital Signs: Last Vital Signs Temp 97.6 F 07/12/22 11:17 Pulse 107 H 07/12/22 11:37 Resp 20 07/12/22 11:17 BP 103/70 07/12/22 11:17 Pulse Ox 92 07/12/22 11:37 O2 Del Method 07/12/22 11:17 O2 Flow Rate 4 07/12/22 11:17 FiO2 45 06/07/22 19:41 Oxygen Flow Rate 70 05/23/22 21:38 BMI result Body Mass Index 18.3 Const: Other: Gen:? Awake alert talking in full sentences HEENT: sclera anicteric, moist mucus membranes Neck: supple, no JVD Lungs:? clear to auscultation, no wheeze, no rhonchi, no use of accessory?muscles Heart: regular rate and rhythm, no murmurs Abd: soft, non-tender, non-distended Ext: no edema Skin:?warm/well-perfused Neuro: alert and?oriented x3, no focal findings Psych: appropriate affect of Objective Data Active Medications Acetaminophen (Acetaminophen 325 Mg Tablet) 650 mg PO Q6H PRN PRN Reason: Pain, Mild (Pain Scale 1-3) Last Admin: 07/12/22 04:56 Dose: 650 mg Documented By: CHINA Al Hydroxide/Mg Hydroxide (Magnesium Hydrox/Alum Hydrox 30 Ml Oral.Susp) 15 ml PO Q4H PRN PRN Reason: heartburn Last Admin: 07/08/22 05:44 Dose: 15 ml Documented By: DESROA Docusate Sodium (Docusate Sodium 100 Mg Capsule) 200 mg PO BEDTIME [facility] Last Admin: 07/11/22 19:59 Dose: 200 mg Documented By: LAWSON Enoxaparin Sodium (Enoxaparin Sodium 40 Mg/0.4 Ml Syringe) 40 mg SUBCUT Q24H [facility] Last Admin: 07/11/22 17:15 Dose: 40 mg Documented By: ALISSA Fluticasone/Vilanterol (Fluticasone/Vilanterol 200/25 Blst.W.Dev) 1 puff INHALE RDAILY [facility] Last Admin: 07/12/22 07:56 Dose: 1 puff Documented By: ROSALIA Guaifenesin/Dextromethorphan (Guaifenesin Dm 100/10/5 Ml 5 Ml Syrup) 10 ml PO TID PRN PRN Reason: cough Hydrocortisone (Hydrocortisone 1 % Ointment 28.35 Gm Tube) 1 appl TOPICAL BID PRN; Protocol PRN Reason: itching Methadone HCl (Methadone Hcl 20 Mg/2 Ml Oral.Conc) 30 mg PO DAILY [facility] Last Admin: 07/12/22 08:29 Dose: 30 mg Documented By: SHANEL Multi-Ingred Cream/Lotion/Oil/Oint (Mineral Oil/Petrolatum,White 106 Gm Tube) 1 appl TOPICAL BID [facility]; Protocol Last Admin: 07/12/22 08:30 Dose: 1 appl Documented By: SHANEL Omeprazole (Omeprazole 20 Mg Capsule.Dr) 20 mg PO DAILY@0630 [facility] Last Admin: 07/12/22 04:54 Dose: 20 mg Documented By: CHINA Ondansetron HCl (Ondansetron Hcl 4 Mg/2 Ml Vial) 4 mg IVPUSH Q8H PRN PRN Reason: Nausea and Vomiting Last Admin: 06/18/22 19:44 Dose: 4 mg Documented By: JACKELYN Paroxetine HCl (Paroxetine Hcl 10 Mg Tablet) 10 mg PO DAILY [facility] Last Admin: 07/12/22 08:29 Dose: 10 mg Documented By: SHANEL Theophylline (Theophylline Anhydrous Er 400 Mg Tab.Er.24h) 200 mg PO BEDTIME [facility] Last Admin: 07/11/22 19:58 Dose: 200 mg Documented By: LAWSON Tiotropium [place] (Tiotropium [place] 18 Mcg Cap.W.Dev) 1 puff INHALE RDAILY [facility] Last Admin: 07/12/22 07:56 Dose: 1 puff Documented By: ROSALIA Tramadol HCl (Tramadol Hcl 50 Mg Tablet) 25 mg PO Q6H PRN PRN Reason: Pain, Moderate (Pain Scale 4-6 Last Admin: 07/11/22 17:14 Dose: 25 mg Documented By: ALISSA Labs 07/10/22 08:38 07/10/22 08:38 Assessment and Plan (1) COPD (chronic obstructive pulmonary disease): Status: Acute Plan 56yo M with COPD, chronic hypoxia on 4L O2, HCV, IDU + pulmonary nodules presenting with dyspnea + hypoxia, initially admitted to ICU on BiPAP, stepped-down to [facility] 05/25/22 Acute hypoxic respiratory failure secondary to COPD exacerbation and community-acquired pneumonia. Resolved status post vancomycin, Zosyn, Augmentin and doxycycline Goal O2 saturation 88-92% baseline oxygen requirement 4 L Continue theophylline, Spiriva, Breo,s/p steroids Seen and evaluated by pulmonology - will need outpatient follow up will add prn breathing treatments Sinus tachycardia. Likely secondary to multiple updraft treatments, and theophylline theophylline decreased to once daily echo with preserved LVEF Metabolic alkalosis chronic ,conntinue supplemental oxygen cxr 07/03 showed persistent patchy infiltrate at left lung base similar to prior chest x-ray 06/22 Macular papular rash to bilateral lower extremities. Resolved Hydrocortisone ointment prn Thrombocytopenia secondary to infection , platelet count normalized Anxiety supportive care Left hip pain xray with no acute changes weaned off oxycodone prn tylenol, ultram History of substance abuse Continue methadone DVT prophylaxis- lovenox Full code Disposition - family unable to care for him at home, CM looking for placement ,encourage OOB to chair and ambulation Continue hospitalization for safe discharge placement Time Spent With Patient Time: Total time managing care of this patient today ____ minutes. Quality Stroke Does the patient have a stroke diagnosis?: No VTE Prior VTE?: No VTE Risk Level:: Medical - moderate - high VTE Device Contraindication: Treatment Not Indicated VTE Drug Contraindication: N/A - Med Ordered
[2022-07-12] MEDS: Enoxaparin Sodium 40 MG/0.4 ML SYRINGE SUBCUT (17:52)
[2022-07-12] MEDS: Theophylline Anhydrous ER 400 MG TAB.ER.24H 200 MG PO (19:34)
[2022-07-12] MEDS: traMADoL HCL 50 MG TABLET 25 MG PO (19:35)
[2022-07-12] MEDS: Docusate Sodium 100 MG CAPSULE 200 MG PO (19:35)
[2022-07-13 03:25] VITALS: BP 120/74; PULSE 87; RESP 14; TEMP 37; O2SAT 91
[2022-07-13 05:48] VITALS: BMI 17.2
[2022-07-13] MEDS: Omeprazole 20 MG CAPSULE.DR PO (06:05)
[2022-07-13] MEDS: Acetaminophen 325 MG TABLET 650 MG PO ×2 (06:05→19:57)
[2022-07-13 07:32] VITALS: PULSE 92; RESP 18; O2SAT 93
[2022-07-13] MEDS: Fluticasone/Vilanterol 200/25 BLST.W.DEV 1 PUFF INHALE (07:32)
[2022-07-13 08:00] VITALS: BP 131/75; PULSE 108; RESP 20; TEMP 36.7; O2SAT 90
[2022-07-13] MEDS: PARoxetine HCL 10 MG TABLET PO (09:43)
[2022-07-13] MEDS: methADONE HCl 20 MG/2 ML ORAL.CONC 30 MG PO (09:43)
[2022-07-13] MEDS: Mineral Oil/Petrolatum,White 106 GM Tube 1 APPL TOPICAL ×2 (09:44→21:04)
--- NOTE | 2022-07-13 11:03 | HO.PM.IMPN ---
Subjective Subjective Date of Service: 07/13/22 Interval History: Is being followed for placement, offers no acute complaints of shortness of breath, denies chest pain, no palpitations, no fever, no chills, finger oximetry stable on 4 L of oxygen, no acute events overnight. Review of Systems Review of Systems: Yes all other systems are reviewed and are negative Physical Exam Vital Signs: Vital Signs: Last Vital Signs Temp 98.1 F 07/13/22 08:00 Pulse 108 H 07/13/22 08:00 Resp 20 07/13/22 08:00 BP 131/75 07/13/22 08:00 Pulse Ox 90 L 07/13/22 08:00 O2 Del Method 07/13/22 08:00 O2 Flow Rate 4 07/13/22 08:00 FiO2 45 06/07/22 19:41 Oxygen Flow Rate 70 05/23/22 21:38 BMI result Body Mass Index 17.2 Const: Other: Gen:? Awake alert talking in full se ntences HEENT: scl era anicteric, [place] mucus membranes Neck: supple, no JVD Lungs:? clear to auscultation, n o wheeze, no rhonc hi, no use of acce ssory?muscles Hear t: regular rate an d rhythm, no murmu rs Abd: soft, non- tender, non-disten ded Ext: no edema Skin:?warm/well-pe rfused Neuro: aler t and?oriented x3, no focal findings Psych: appropriat e affect Objective Data Active Medications Acetaminophen (Acetaminophen 325 Mg Tablet) 650 mg PO Q6H PRN PRN Reason: Pain, Mild (Pain Scale 1-3) Last Admin: 07/13/22 06:05 Dose: 650 mg Documented By: SARWAT Al Hydroxide/Mg Hydroxide (Magnesium Hydrox/Alum Hydrox 30 Ml Oral.Susp) 15 ml PO Q4H PRN PRN Reason: heartburn Last Admin: 07/08/22 05:44 Dose: 15 ml Documented By: SARWAT Docusate Sodium (Docusate Sodium 100 Mg Capsule) 200 mg PO BEDTIME [facility] Last Admin: 07/12/22 19:35 Dose: 200 mg Documented By: SARWAT Enoxaparin Sodium (Enoxaparin Sodium 40 Mg/0.4 Ml Syringe) 40 mg SUBCUT Q24H [facility] Last Admin: 07/12/22 17:52 Dose: 40 mg Documented By: FOSTEKKevin Fluticasone/Vilanterol (Fluticasone/Vilanterol 200/25 Blst.W.Dev) 1 puff INHALE RDAILY [facility] Last Admin: 07/13/22 07:32 Dose: 1 puff Documented By: OBED Guaifenesin/Dextromethorphan (Guaifenesin Dm 100/10/5 Ml 5 Ml Syrup) 10 ml PO TID PRN PRN Reason: cough Hydrocortisone (Hydrocortisone 1 % Ointment 28.35 Gm Tube) 1 appl TOPICAL BID PRN; Protocol PRN Reason: itching Levalbuterol HCl (Levalbuterol Hcl 1.25 Mg/0.5 Ml Vial.Neb) 1.25 mg INHALE Q3H PRN PRN Reason: Shortness of Breath Last Admin: 07/12/22 18:43 Dose: 1.25 mg Documented By: ISIDRA Methadone HCl (Methadone Hcl 20 Mg/2 Ml Oral.Conc) 30 mg PO DAILY [facility] Last Admin: 07/13/22 09:43 Dose: 30 mg Documented By: JOSE Multi-Ingred Cream/Lotion/Oil/Oint (Mineral Oil/Petrolatum,White 106 Gm Tube) 1 appl TOPICAL BID [facility]; Protocol Last Admin: 07/13/22 09:44 Dose: 1 appl Documented By: JOSE Omeprazole (Omeprazole 20 Mg Capsule.Dr) 20 mg PO DAILY@0630 [facility] Last Admin: 07/13/22 06:05 Dose: 20 mg Documented By: SARWAT Ondansetron HCl (Ondansetron Hcl 4 Mg/2 Ml Vial) 4 mg IVPUSH Q8H PRN PRN Reason: Nausea and Vomiting Last Admin: 06/18/22 19:44 Dose: 4 mg Documented By: JACKELYN Paroxetine HCl (Paroxetine Hcl 10 Mg Tablet) 10 mg PO DAILY [facility] Last Admin: 07/13/22 09:43 Dose: 10 mg Documented By: JOSE Theophylline (Theophylline Anhydrous Er 400 Mg Tab.Er.24h) 200 mg PO BEDTIME [facility] Last Admin: 07/12/22 19:34 Dose: 200 mg Documented By: SARWAT Tiotropium [place] (Tiotropium [place] 18 Mcg Cap.W.Dev) 1 puff INHALE [facility] Last Admin: 07/13/22 07:32 Dose: 1 puff Documented By: OBED Tramadol HCl (Tramadol Hcl 50 Mg Tablet) 25 mg PO Q6H PRN PRN Reason: Pain, Moderate (Pain Scale 4-6 Last Admin: 07/12/22 19:35 Dose: 25 mg Documented By: SARWAT Labs 07/10/22 08:38 07/10/22 08:38 Assessment and Plan (1) COPD (chronic obstructive pulmonary disease): Status: Acute Plan 56yo M with COPD, chronic hypoxia on 4L O2, HCV, IDU + pulmonary nodules presenting with dyspnea + hypoxia, initially admitted to ICU on BiPAP, stepped-down to [facility] [place] 05/25/22 Acute hypoxic respiratory failure secondary to COPD exacerbation and community-acquired pneumonia. Resolved status post vancomycin, Zosyn, Augmentin and doxycycline Goal O2 saturation 88-92% baseline oxygen requirement 4 L Continue theophylline, Spiriva, Breo,s/p steroids Recommend outpatient pulmonology follow-up Continue prn breathing treatments Encourage ambulation. Sinus tachycardia. Noted to have few episodes of heart rate above 100 patient asymptomatic ,echo with preserved LVEF, no further intervention recommended Macular papular rash to bilateral lower extremities. Resolved Hydrocortisone ointment prn Thrombocytopenia secondary to infection , platelet count normalized Anxiety supportive care Left hip pain resolved xray with no acute changes, continue as needed analgesics History of substance abuse Continue methadone DVT prophylaxis- lovenox Full code Disposition - family unable to care for him at home, CM looking for placement ,encourage OOB to chair and ambulation. Continue hospitalization for safe discharge placement Time Spent With Patient Time: Total time managing care of this patient today ____ minutes. Quality Stroke Does the patient have a stroke diagnosis?: No VTE Prior VTE?: No VTE Risk Level:: Medical - moderate - high VTE Device Contraindication: Treatment Not Indicated VTE Drug Contraindication: N/A - Med Ordered
[2022-07-13 11:35] VITALS: BP 125/76; PULSE 92; RESP 20; TEMP 36.6; O2SAT 95
[2022-07-13 14:54] VITALS: BP 108/65; PULSE 100; RESP 16; TEMP 36.4; O2SAT 94
[2022-07-13] MEDS: Enoxaparin Sodium 40 MG/0.4 ML SYRINGE SUBCUT (16:43)
[2022-07-13 19:42] VITALS: BP 108/73; PULSE 96; RESP 18; TEMP 37; O2SAT 93
[2022-07-13] MEDS: Theophylline Anhydrous ER 400 MG TAB.ER.24H 200 MG PO (19:56)
[2022-07-13] MEDS: traMADoL HCL 50 MG TABLET 25 MG PO (19:56)
[2022-07-13] MEDS: Docusate Sodium 100 MG CAPSULE 200 MG PO (19:56)
[2022-07-14] VITALS (9 sets, daily range): BP systolic 109–124; BP diastolic 72–79; PULSE 83–105; RESP 18–20; TEMP 36.3–37.2; O2SAT 90–94; BMI 16.9
[2022-07-14] MEDS: Omeprazole 20 MG CAPSULE.DR PO (04:28)
[2022-07-14] MEDS: methADONE HCl 20 MG/2 ML ORAL.CONC 30 MG PO (07:16)
[2022-07-14] MEDS: PARoxetine HCL 10 MG TABLET PO (07:16)
[2022-07-14] MEDS: Mineral Oil/Petrolatum,White 106 GM Tube 1 APPL TOPICAL ×2 (07:17→20:09)
[2022-07-14] MEDS: Fluticasone/Vilanterol 200/25 BLST.W.DEV 1 PUFF INHALE (07:19)
--- NOTE | 2022-07-14 07:37 | MHC.CM.PN ---
SNF search referrals have been updated and CM will continue to follow.
--- NOTE | 2022-07-14 09:58 | P.PNIM_ITS ---
Subjective Subjective Date of Service: 07/14/22 Interval History: Being followed for placement, offers no acute complaints tolerating diet had a normal bowel movement yesterday, no nausea no vomiting no abdominal pain, denies shortness of breath, no discomfort, no acute events overnight. Review of Systems Review of Systems: Yes all other systems are reviewed and are negative Physical Exam Vital Signs: Vital Signs: Last Vital Signs Temp 97.5 F 07/14/22 07:33 Pulse 91 07/14/22 07:33 Resp 20 07/14/22 07:33 BP 112/74 07/14/22 07:33 Pulse Ox 90 L 07/14/22 07:33 O2 Del Method 07/14/22 07:33 O2 Flow Rate 4 07/14/22 07:33 FiO2 45 06/07/22 19:41 Oxygen Flow Rate 70 05/23/22 21:38 BMI result Body Mass Index 17.2 Const: Other: Gen:? Awake alert talking in full sentences HEENT: sclera anicteric, moist mucus membranes Neck: supple, no JVD Lungs:? clear to auscultation, no wheeze, no rhonchi, no use of accessory?muscles Heart: regular rate and rhythm, no murmurs Abd: soft, non-tender, non-distended Ext: no edema Skin:?warm/well-perfused Neuro: alert and?oriented x3, no focal findings Psych: appropriate affect. Objective Data Active Medications Acetaminophen (Acetaminophen 325 Mg Tablet) 650 mg PO Q6H PRN PRN Reason: Pain, Mild (Pain Scale 1-3) Last Admin: 07/13/22 19:57 Dose: 650 mg Documented By: LAWSON Al Hydroxide/Mg Hydroxide (Magnesium Hydrox/Alum Hydrox 30 Ml Oral.Susp) 15 ml PO Q4H PRN PRN Reason: heartburn Last Admin: 07/08/22 05:44 Dose: 15 ml Documented By: DESROA Docusate Sodium (Docusate Sodium 100 Mg Capsule) 200 mg PO BEDTIME [facility] Last Admin: 07/13/22 19:56 Dose: 200 mg Documented By: LAWSON Enoxaparin Sodium (Enoxaparin Sodium 40 Mg/0.4 Ml Syringe) 40 mg SUBCUT Q24H [facility] Last Admin: 07/13/22 16:43 Dose: 40 mg Documented By: HO.RIOSCEL Fluticasone/Vilanterol (Fluticasone/Vilanterol 200/25 Blst.W.Dev) 1 puff INHALE RDAILY [facility] Last Admin: 07/14/22 07:19 Dose: 1 puff Documented By: OBED Guaifenesin/Dextromethorphan (Guaifenesin Dm 100/10/5 Ml 5 Ml Syrup) 10 ml PO TID PRN PRN Reason: cough Hydrocortisone (Hydrocortisone 1 % Ointment 28.35 Gm Tube) 1 appl TOPICAL BID PRN; Protocol PRN Reason: itching Levalbuterol HCl (Levalbuterol Hcl 1.25 Mg/0.5 Ml Vial.Neb) 1.25 mg INHALE Q3H PRN PRN Reason: Shortness of Breath Last Admin: 07/12/22 18:43 Dose: 1.25 mg Documented By: ISIDRA Methadone HCl (Methadone Hcl 20 Mg/2 Ml Oral.Conc) 30 mg PO DAILY [facility] Last Admin: 07/14/22 07:16 Dose: 30 mg Documented By: JOSE Multi-Ingred Cream/Lotion/Oil/Oint (Mineral Oil/Petrolatum,White 106 Gm Tube) 1 appl TOPICAL BID [facility]; Protocol Last Admin: 07/14/22 07:17 Dose: 1 appl Documented By: JOSE Omeprazole (Omeprazole 20 Mg Capsule.Dr) 20 mg PO DAILY@0630 [facility] Last Admin: 07/14/22 04:28 Dose: 20 mg Documented By: EMMA Ondansetron HCl (Ondansetron Hcl 4 Mg/2 Ml Vial) 4 mg IVPUSH Q8H PRN PRN Reason: Nausea and Vomiting Last Admin: 06/18/22 19:44 Dose: 4 mg Documented By: JACKELYN Paroxetine HCl (Paroxetine Hcl 10 Mg Tablet) 10 mg PO DAILY [facility] Last Admin: 07/14/22 07:16 Dose: 10 mg Documented By: JOSE Theophylline (Theophylline Anhydrous Er 400 Mg Tab.Er.24h) 200 mg PO BEDTIME [facility] Last Admin: 07/13/22 19:56 Dose: 200 mg Documented By: LAWSON Tiotropium [place] (Tiotropium [place] 18 Mcg Cap.W.Dev) 1 puff INHALE RDAILY [facility] Last Admin: 07/14/22 07:19 Dose: 1 puff Documented By: OBED Tramadol HCl (Tramadol Hcl 50 Mg Tablet) 25 mg PO Q12H PRN PRN Reason: Pain, Moderate (Pain Scale 4-6 Labs 07/10/22 08:38 07/10/22 08:38 Assessment and Plan (1) COPD (chronic obstructive pulmonary disease): Status: Acute Plan 56yo M with COPD, chronic hypoxia on 4L O2, HCV, IDU + pulmonary nodules presenting with dyspnea + hypoxia, initially admitted to ICU on BiPAP, stepped- down to [facility] [place] 05/25/22 Acute hypoxic respiratory failure secondary to COPD exacerbation and community- acquired pneumonia. Resolved status post vancomycin, Zosyn, Augmentin and doxycycline Goal O2 saturation 88-92% baseline oxygen requirement 4 L Continue theophylline, Spiriva, Breo,s/p steroids Recommend outpatient pulmonology follow-up Continue prn breathing treatments Encourage ambulation. Sinus tachycardia. Noted to have few episodes of heart rate above 100 patient asymptomatic ,echo with preserved LVEF, no further intervention recommended Macular papular rash to bilateral lower extremities. Resolved Hydrocortisone ointment prn Thrombocytopenia secondary to infection , platelet count normalized Anxiety supportive care Left hip pain resolved xray with no acute changes, will minimize narcotic decrease Ultram to Q 12 hour as needed History of substance abuse Continue methadone DVT prophylaxis- lovenox Full code Disposition - family unable to care for him at home, CM looking for placement ,encourage OOB to chair and ambulation. Continue hospitalization for safe discharge placement Time Spent With Patient Time: Total time managing care of this patient today ____ minutes. Quality Stroke Does the patient have a stroke diagnosis?: No VTE Prior VTE?: No VTE Risk Level:: Medical - moderate - high VTE Device Contraindication: Treatment Not Indicated VTE Drug Contraindication: N/A - Med Ordered
--- NOTE | 2022-07-14 10:23 | MHC.CM.PN ---
CM spoke with [facility] @ [phone] to determine if Patient was appropriate for that LOC but they cannot accept anyone on continuous O2. CM will continue to follow.
--- NOTE | 2022-07-14 10:42 | MHC.CLN ---
F/U PO INTAKE 75-100% DIET RX: REGULAR-APPROPRIATE PT RECEIVES ENSURE BID PROVIDES 700KCALS, 40G PROTEIN CONTINUE TO MONITOR PO INTAKE AND WEIGHT
[2022-07-14] MEDS: Acetaminophen 325 MG TABLET 650 MG PO (11:58)
--- NOTE | 2022-07-14 12:12 | MHC.CM.PN ---
Patient has been accepted at [facility]. ELY has contacted [employer]([place]) at [phone] to get Guest dosing for Patient's Methadone. [facility] is requesting Patient's Dosing History, Tox history, Bio Psych and H&P from [facility](RONN STOVER RN) ([phone]), where Patient received his Methadone [facility]. ELY is working on Release of Information to be faxed to [facility] @ [phone] so that they can fax requested information to [facility] @ [phone]. A MDS will also be needed. [facility] closes at 3PM today. is aware that a SNF bed has been obtained. ELY will follow.
[2022-07-14] MEDS: Enoxaparin Sodium 40 MG/0.4 ML SYRINGE SUBCUT (17:08)
[2022-07-14] MEDS: Theophylline Anhydrous ER 400 MG TAB.ER.24H 200 MG PO (20:07)
[2022-07-14] MEDS: Docusate Sodium 100 MG CAPSULE 200 MG PO (20:07)
[2022-07-15] VITALS (7 sets, daily range): BP systolic 108–128; BP diastolic 65–80; PULSE 86–94; RESP 16–19; TEMP 36.4–37.4; O2SAT 88–93; BMI 17.6
[2022-07-15] MEDS: Omeprazole 20 MG CAPSULE.DR PO (05:44)
[2022-07-15] MEDS: Acetaminophen 325 MG TABLET 650 MG PO ×2 (05:46→20:36)
[2022-07-15] MEDS: Fluticasone/Vilanterol 200/25 BLST.W.DEV 1 PUFF INHALE (08:23)
--- NOTE | 2022-07-15 09:03 | P.PNIM_ITS ---
Subjective Subjective Date of Service: 07/15/22 Interval History: Being followed for placement, offers no acute complaints, tolerating diet no nausea, no vomiting, no abdominal pain denies shortness of breath, no chest pain no palpitations ambulating to bathroom without lightheadedness or dizziness, remains on baseline 4 L of oxygen with stable finger oximetry. Review of Systems Review of Systems: Yes Unobtainable due to mental status Physical Exam Vital Signs: Vital Signs: Last Vital Signs Temp 98.5 F 07/15/22 07:35 Pulse 92 07/15/22 08:27 Resp 16 07/15/22 08:27 BP 110/65 07/15/22 07:35 Pulse Ox 93 07/15/22 07:35 O2 Del Method 07/15/22 07:35 O2 Flow Rate 4 07/15/22 07:35 FiO2 45 06/07/22 19:41 Oxygen Flow Rate 70 05/23/22 21:38 BMI result Body Mass Index 17.6 Const: Other: Gen:? Awake alert talking in full sentences HEENT: sclera anicteric, moist mucus membranes Neck: supple, no JVD Lungs:? clear to auscultation, no wheeze, no rhonchi, no use of accessory?muscles Heart: regular rate and rhythm, no murmurs Abd: soft, non-tender, non-distended Ext: no edema Skin:?warm/well-perfused Neuro: alert and?oriented x3, no focal findings Psych: appropriate affect. Objective Data Active Medications Acetaminophen (Acetaminophen 325 Mg Tablet) 650 mg PO Q6H PRN PRN Reason: Pain, Mild (Pain Scale 1-3) Last Admin: 07/15/22 05:46 Dose: 650 mg Documented By: FERNANDO Al Hydroxide/Mg Hydroxide (Magnesium Hydrox/Alum Hydrox 30 Ml Oral.Susp) 15 ml PO Q4H PRN PRN Reason: heartburn Last Admin: 07/08/22 05:44 Dose: 15 ml Documented By: DESROA Docusate Sodium (Docusate Sodium 100 Mg Capsule) 200 mg PO BEDTIME [facility] Last Admin: 07/14/22 20:07 Dose: 200 mg Documented By: FERNANDO Enoxaparin Sodium (Enoxaparin Sodium 40 Mg/0.4 Ml Syringe) 40 mg SUBCUT Q24H [facility] Last Admin: 07/14/22 17:08 Dose: 40 mg Documented By: JOSE Fluticasone/Vilanterol (Fluticasone/Vilanterol 200/25 Blst.W.Dev) 1 puff INHALE RDAILY [facility] Last Admin: 07/15/22 08:23 Dose: 1 puff Documented By: SRAVAN Guaifenesin/Dextromethorphan (Guaifenesin Dm 100/10/5 Ml 5 Ml Syrup) 10 ml PO TID PRN PRN Reason: cough Hydrocortisone (Hydrocortisone 1 % Ointment 28.35 Gm Tube) 1 appl TOPICAL BID PRN; Protocol PRN Reason: itching Levalbuterol HCl (Levalbuterol Hcl 1.25 Mg/0.5 Ml Vial.Neb) 1.25 mg INHALE Q3H PRN PRN Reason: Shortness of Breath Last Admin: 07/12/22 18:43 Dose: 1.25 mg Documented By: ISIDRA Methadone HCl (Methadone Hcl 20 Mg/2 Ml Oral.Conc) 30 mg PO DAILY [facility] Last Admin: 07/14/22 07:16 Dose: 30 mg Documented By: JOSE Multi-Ingred Cream/Lotion/Oil/Oint (Mineral Oil/Petrolatum,White 106 Gm Tube) 1 appl TOPICAL BID [facility]; Protocol Last Admin: 07/14/22 20:09 Dose: 1 appl Documented By: FERNANDO Omeprazole (Omeprazole 20 Mg Capsule.Dr) 20 mg PO DAILY@0630 [facility] Last Admin: 07/15/22 05:44 Dose: 20 mg Documented By: FERNANDO Ondansetron HCl (Ondansetron Hcl 4 Mg/2 Ml Vial) 4 mg IVPUSH Q8H PRN PRN Reason: Nausea and Vomiting Last Admin: 06/18/22 19:44 Dose: 4 mg Documented By: JACKELYN Paroxetine HCl (Paroxetine Hcl 10 Mg Tablet) 10 mg PO DAILY [facility] Last Admin: 07/14/22 07:16 Dose: 10 mg Documented By: JOSE Theophylline (Theophylline Anhydrous Er 400 Mg Tab.Er.24h) 200 mg PO BEDTIME [facility] Last Admin: 07/14/22 20:07 Dose: 200 mg Documented By: HO.ODRISM Tiotropium [place] (Tiotropium [place] 18 Mcg Cap.W.Dev) 1 puff INHALE MELISSA [facility] Last Admin: 07/15/22 08:23 Dose: 1 puff Documented By: SRAVAN Tramadol HCl (Tramadol Hcl 50 Mg Tablet) 25 mg PO Q12H PRN PRN Reason: Pain, Moderate (Pain Scale 4-6 Labs 07/10/22 08:38 07/10/22 08:38 Assessment and Plan (1) COPD (chronic obstructive pulmonary disease): Status: Acute Plan 56yo M with COPD, chronic hypoxia on 4L O2, HCV, IDU + pulmonary nodules presenting with dyspnea + hypoxia, initially admitted to ICU on BiPAP, stepped- down to C 05/25/22 Acute hypoxic respiratory failure secondary to COPD exacerbation and community- acquired pneumonia. Resolved status post vancomycin, Zosyn, Augmentin and doxycycline Goal O2 saturation 88-92% baseline oxygen requirement 4 L Continue theophylline, Spiriva, Breo,s/p steroids Recommend outpatient pulmonology follow-up Continue prn breathing treatments Encourage ambulation. Sinus tachycardia. Noted to have few episodes of heart rate above 100 patient asymptomatic ,echo with preserved LVEF, no further intervention recommended History of substance abuse Continue methadone Anxiety supportive care Resolved issues Macular papular rash to bilateral lower extremities. Resolved Hydrocortisone ointment prn Thrombocytopenia secondary to infection , platelet count normalized Left hip pain resolved xray with no acute changes, will minimize narcotic decrease Ultram to Q 12 hour as needed DVT prophylaxis- lovenox Full code Disposition - family unable to care for him at home, CM looking for placement ,encourage OOB to chair and ambulation. Continue hospitalization for safe discharge awaiting placement Time Spent With Patient Time: Total time managing care of this patient today ____ minutes. Quality Stroke Does the patient have a stroke diagnosis?: No VTE Prior VTE?: No VTE Risk Level:: Medical - moderate - high VTE Device Contraindication: Treatment Not Indicated VTE Drug Contraindication: N/A - Med Ordered
[2022-07-15] MEDS: methADONE HCl 20 MG/2 ML ORAL.CONC 30 MG PO (09:17)
[2022-07-15] MEDS: PARoxetine HCL 10 MG TABLET PO (09:17)
[2022-07-15] MEDS: Mineral Oil/Petrolatum,White 106 GM Tube 1 APPL TOPICAL ×2 (09:19→20:38)
[2022-07-15] MEDS: Enoxaparin Sodium 40 MG/0.4 ML SYRINGE SUBCUT (18:39)
[2022-07-15] MEDS: Theophylline Anhydrous ER 400 MG TAB.ER.24H 200 MG PO (20:36)
[2022-07-16] VITALS (8 sets, daily range): BP systolic 112–130; BP diastolic 71–82; PULSE 82–94; RESP 14–20; TEMP 36.5–37; O2SAT 89–94
[2022-07-16] MEDS: Omeprazole 20 MG CAPSULE.DR PO (05:45)
[2022-07-16] MEDS: Fluticasone/Vilanterol 200/25 BLST.W.DEV 1 PUFF INHALE (08:13)
[2022-07-16] MEDS: methADONE HCl 20 MG/2 ML ORAL.CONC 30 MG PO (08:56)
[2022-07-16] MEDS: Mineral Oil/Petrolatum,White 106 GM Tube 1 APPL TOPICAL ×2 (08:57→21:41)
[2022-07-16] MEDS: PARoxetine HCL 10 MG TABLET PO (08:57)
--- NOTE | 2022-07-16 10:39 | P.PNIM_ITS ---
Subjective Subjective Date of Service: 07/16/22 Interval History: Being followed for placement, offers no acute complaints Review of Systems Unable to obtain secondary to confusion Physical Exam Vital Signs: Vital Signs: Last Vital Signs Temp 98.6 F 07/16/22 07:25 Pulse 90 07/16/22 08:22 Resp 17 07/16/22 08:22 BP 120/82 07/16/22 07:25 Pulse Ox 92 07/16/22 07:25 O2 Del Method 07/16/22 07:25 O2 Flow Rate 4 07/16/22 07:25 FiO2 45 06/07/22 19:41 Oxygen Flow Rate 70 05/23/22 21:38 BMI result Body Mass Index 17.6 Const: Other: Awake alert no acute distress Resp: Other: Clear to auscultation bilaterally no rales rhonchi wheezes Cardio: Other: No S4; positive S1-S2; no S3 murmurs rubs or gallops GI: Other: Soft nontender nondistended normoactive bowel sounds Extrem: Other: No edema bilaterally Objective Data Active Medications Acetaminophen (Acetaminophen 325 Mg Tablet) 650 mg PO Q6H PRN PRN Reason: Pain, Mild (Pain Scale 1-3) Last Admin: 07/15/22 20:36 Dose: 650 mg Documented By: FERNANDO Al Hydroxide/Mg Hydroxide (Magnesium Hydrox/Alum Hydrox 30 Ml Oral.Susp) 15 ml PO Q4H PRN PRN Reason: heartburn Last Admin: 07/08/22 05:44 Dose: 15 ml Documented By: SARWAT Docusate Sodium (Docusate Sodium 100 Mg Capsule) 200 mg PO BEDTIME [facility]S [facility] 234 BEDS AT [facility] Last Admin: 07/15/22 20:40 Dose: Not Given Documented By: FERNANDO Non-Admin Reason: Patient Refused Enoxaparin Sodium (Enoxaparin Sodium 40 Mg/0.4 Ml Syringe) 40 mg SUBCUT Q24H [facility]S [facility]CLUDE 234 BEDS AT THE [facility] Last Admin: 07/15/22 18:39 Dose: 40 mg Documented By: DOBROB Fluticasone/Vilanterol (Fluticasone/Vilanterol 200/25 Blst.W.Dev) 1 puff INHALE RDAILY [facility]CLUDE 234 BEDS AT [facility] Last Admin: 07/16/22 08:13 Dose: 1 puff Documented By: ISIDRA Guaifenesin/Dextromethorphan (Guaifenesin Dm 100/10/5 Ml 5 Ml Syrup) 10 ml PO TID PRN PRN Reason: cough Hydrocortisone (Hydrocortisone 1 % Ointment 28.35 Gm Tube) 1 appl TOPICAL BID PRN; Protocol PRN Reason: itching Levalbuterol HCl (Levalbuterol Hcl 1.25 Mg/0.5 Ml Vial.Neb) 1.25 mg INHALE Q3H PRN PRN Reason: Shortness of Breath Last Admin: 07/12/22 18:43 Dose: 1.25 mg Documented By: ISIDRA Methadone HCl (Methadone Hcl 20 Mg/2 Ml Oral.Conc) 30 mg PO DAILY [facility]S [facility]CLUDE 234 BEDS AT [facility] Last Admin: 07/16/22 08:56 Dose: 30 mg Documented By: SD Multi-Ingred Cream/Lotion/Oil/Oint (Mineral Oil/Petrolatum,White 106 Gm Tube) 1 appl TOPICAL BID [facility]S INCLUDE 234 BEDS AT [facility]; Protocol Last Admin: 07/16/22 08:57 Dose: 1 appl Documented By: SD Omeprazole (Omeprazole 20 Mg Capsule.Dr) 20 mg PO DAILY@0630 [facility]S [facility]CLUDE 234 BEDS AT [facility] Last Admin: 07/16/22 05:45 Dose: 20 mg Documented By: FERNANDO Ondansetron HCl (Ondansetron Hcl 4 Mg/2 Ml Vial) 4 mg IVPUSH Q8H PRN PRN Reason: Nausea and Vomiting Last Admin: 06/18/22 19:44 Dose: 4 mg Documented By: JACKELYN Paroxetine HCl (Paroxetine Hcl 10 Mg Tablet) 10 mg PO DAILY [facility]CLUDE 234 BEDS AT [facility] Last Admin: 07/16/22 08:57 Dose: 10 mg Documented By: SD Theophylline (Theophylline Anhydrous Er 400 Mg Tab.Er.24h) 200 mg PO BEDTIME [facility]S [facility]CLUDE 234 BEDS AT [facility] Last Admin: 07/15/22 20:36 Dose: 200 mg Documented By: FERNANDO Tiotropium Protem (Tiotropium Protem 18 Mcg Cap.W.Dev) 1 puff INHALE RDAILY [facility]CLUDE 234 BEDS AT [facility] Last Admin: 07/16/22 08:13 Dose: 1 puff Documented By: ISIDRA Tramadol HCl (Tramadol Hcl 50 Mg Tablet) 25 mg PO Q12H PRN PRN Reason: Pain, Moderate (Pain Scale 4-6 Labs 07/10/22 08:38 07/10/22 08:38 Assessment and Plan (1) Acute exacerbation of chronic obstructive airways disease: Status: Acute Plan 56yo M with COPD, chronic hypoxia on 4L O2, HCV, IDU + pulmonary nodules presenting with dyspnea/ hypoxia, initially admitted to ICU on BiPAP, stepped- down to C 05/25/22 1.Acute hypoxic respiratory failure secondary to COPD exacerbation -theophylline, Spiriva, Breo,s/p steroids -p.r.tony Ross 2.Community-acquired pneumonia - Resolved 3.History of substance abuse -Continue methadone Anxiety supportive care lovenox Full code Disposition - family unable to care for him at home, CM looking for placement ,encourage OOB to chair and ambulation. Continue hospitalization for safe discharge awaiting placement Time Spent With Patient Time: Total time managing care of this patient today ____ minutes. Quality Stroke Does the patient have a stroke diagnosis?: No VTE Prior VTE?: No VTE Risk Level:: Medical - moderate - high VTE Device Contraindication: Treatment Not Indicated VTE Drug Contraindication: N/A - Med Ordered
[2022-07-16] MEDS: Acetaminophen 325 MG TABLET 650 MG PO (14:31)
[2022-07-16] MEDS: traMADoL HCL 50 MG TABLET 25 MG PO (14:32)
[2022-07-16] MEDS: Enoxaparin Sodium 40 MG/0.4 ML SYRINGE SUBCUT (18:05)
[2022-07-16] MEDS: Docusate Sodium 100 MG CAPSULE 200 MG PO (21:39)
[2022-07-16] MEDS: Theophylline Anhydrous ER 400 MG TAB.ER.24H 200 MG PO (21:39)
[2022-07-17] VITALS (7 sets, daily range): BP systolic 103–134; BP diastolic 67–74; PULSE 80–96; RESP 16–20; TEMP 36.3–37.1; O2SAT 90–95; BMI 16.9
--- NOTE | 2022-07-17 03:04 | PC.NURSE ---
[facility] at 2300, alert and oriented, c/o mild right hip and generalized discomfort, didn't want anything for it, VSS, call hunter in reach, bed alarm on.
[2022-07-17] MEDS: Omeprazole 20 MG CAPSULE.DR PO (05:39)
[2022-07-17] MEDS: Fluticasone/Vilanterol 200/25 BLST.W.DEV 1 PUFF INHALE (07:29)
[2022-07-17] MEDS: PARoxetine HCL 10 MG TABLET PO (07:53)
[2022-07-17] MEDS: Acetaminophen 325 MG TABLET 650 MG PO ×2 (07:53→16:19)
[2022-07-17] MEDS: Mineral Oil/Petrolatum,White 106 GM Tube 1 APPL TOPICAL ×2 (07:53→21:19)
[2022-07-17] MEDS: methADONE HCl 20 MG/2 ML ORAL.CONC 30 MG PO (07:54)
--- NOTE | 2022-07-17 09:38 | MHC.CM.PN ---
CM spoke with [facility] this morning; they have requested an ABH form from [employer] and CM will be faxing requested [facility] Methadone history to them momentarily.CM awaits response from [facility] as to anticipated date of admission. CM will follow.
--- NOTE | 2022-07-17 10:50 | MHC.CM.PN ---
Elba from [facility] has confirmed that she has received the requested documentation from [facility] and are still waiting for the ABH letter from [facility]. ELY spoke with Meghan from [facility], who was not sure what the AB letter was so she agreed to call and speak with Elba directly. CM will follow.
--- NOTE | 2022-07-17 12:50 | MHC.CM.PN ---
JEANNE Christianson from [facility] has confirmed that she just faxed over the ABH form requested by [employer]. CM will follow.
--- NOTE | 2022-07-17 13:18 | HO.PM.IMPN ---
Subjective Subjective Date of Service: 07/17/22 Interval History: Being followed for placement; no acute issues overnight Review of Systems Denies chest pain Denies shortness of breath Denies nausea vomiting diarrhea Denies fever chills Physical Exam Vital Signs: Vital Signs: Last Vital Signs Temp 98.5 F 07/17/22 11:22 Pulse 86 07/17/22 11:22 Resp 16 07/17/22 11:22 BP 107/72 07/17/22 11:22 Pulse Ox 92 07/17/22 11:22 O2 Del Method 07/17/22 11:22 O2 Flow Rate 4 07/17/22 11:22 FiO2 45 06/07/22 19:41 Oxygen Flow Rate 70 05/23/22 21:38 BMI result Body Mass Index 16.9 Const: Other: Awake alert no acute distress Resp: Other: Clear to auscultation bilaterally no rales rhonchi wheezes Cardio: Other: No S4; positive S1-S2; no S3 murmurs rubs or gallops GI: Other: Soft nontender nondistended normoactive bowel sounds Extrem: Other: No edema bilaterally Objective Data Active Medications Acetaminophen (Acetaminophen 325 Mg Tablet) 650 mg PO Q6H PRN PRN Reason: Pain, Mild (Pain Scale 1-3) Last Admin: 07/17/22 07:53 Dose: 650 mg Documented By: ALISSA Al Hydroxide/Mg Hydroxide (Magnesium Hydrox/Alum Hydrox 30 Ml Oral.Susp) 15 ml PO Q4H PRN PRN Reason: heartburn Last Admin: 07/08/22 05:44 Dose: 15 ml Documented By: SARWAT Docusate Sodium (Docusate Sodium 100 Mg Capsule) 200 mg PO BEDTIME [facility] Last Admin: 07/16/22 21:39 Dose: 200 mg Documented By: MICHELLE Enoxaparin Sodium (Enoxaparin Sodium 40 Mg/0.4 Ml Syringe) 40 mg SUBCUT Q24H [facility] Last Admin: 07/16/22 18:05 Dose: 40 mg Documented By: SD Fluticasone/Vilanterol (Fluticasone/Vilanterol 200/25 Blst.W.Dev) 1 puff INHALE RDAILY [facility] Last Admin: 07/17/22 07:29 Dose: 1 puff Documented By: OBED Guaifenesin/Dextromethorphan (Guaifenesin Dm 100/10/5 Ml 5 Ml Syrup) 10 ml PO TID PRN PRN Reason: cough Hydrocortisone (Hydrocortisone 1 % Ointment 28.35 Gm Tube) 1 appl TOPICAL BID PRN; Protocol PRN Reason: itching Levalbuterol HCl (Levalbuterol Hcl 1.25 Mg/0.5 Ml Vial.Neb) 1.25 mg INHALE Q3H PRN PRN Reason: Shortness of Breath Last Admin: 07/12/22 18:43 Dose: 1.25 mg Documented By: ISIDRA Methadone HCl (Methadone Hcl 20 Mg/2 Ml Oral.Conc) 30 mg PO DAILY [facility] Last Admin: 07/17/22 07:54 Dose: 30 mg Documented By: ALISSA Multi-Ingred Cream/Lotion/Oil/Oint (Mineral Oil/Petrolatum,White 106 Gm Tube) 1 appl TOPICAL BID [facility]; Protocol Last Admin: 07/17/22 07:53 Dose: 1 appl Documented By: ALISAS Omeprazole (Omeprazole 20 Mg Capsule.Dr) 20 mg PO DAILY@0630 [facility] Last Admin: 07/17/22 05:39 Dose: 20 mg Documented By: NESTOR Ondansetron HCl (Ondansetron Hcl 4 Mg/2 Ml Vial) 4 mg IVPUSH Q8H PRN PRN Reason: Nausea and Vomiting Last Admin: 06/18/22 19:44 Dose: 4 mg Documented By: JACKELYN Paroxetine HCl (Paroxetine Hcl 10 Mg Tablet) 10 mg PO DAILY [facility] Last Admin: 07/17/22 07:53 Dose: 10 mg Documented By: ALISSA Theophylline (Theophylline Anhydrous Er 400 Mg Tab.Er.24h) 200 mg PO BEDTIME [facility] Last Admin: 07/16/22 21:39 Dose: 200 mg Documented By: MICHELLE Tiotropium [place] (Tiotropium [place] 18 Mcg Cap.W.Dev) 1 puff INHALE RDAILY [facility] Last Admin: 07/17/22 07:29 Dose: 1 puff Documented By: OBED Tramadol HCl (Tramadol Hcl 50 Mg Tablet) 25 mg PO Q12H PRN PRN Reason: Pain, Moderate (Pain Scale 4-6 Last Admin: 07/16/22 14:32 Dose: 25 mg Documented By: SD Comments: Labs 07/10/22 08:38 07/10/22 08:38 Assessment and Plan (1) Respiratory failure with hypoxia and hypercapnia: Status: Acute Plan 56yo M with COPD, chronic hypoxia on 4L O2, HCV, IDU + pulmonary nodules presenting with dyspnea/ hypoxia, initially admitted to ICU on BiPAP, stepped-down to C 05/25/22 1.Acute hypoxic respiratory failure secondary to COPD exacerbation -theophylline, Spiriva, Breo,s/p steroids -p.r.n. DuoNebs 2.Community-acquired pneumonia - Resolved 3.History of substance abuse -Continue methadone Anxiety supportive care lovenox Full code Disposition - family unable to care for him at home, CM looking for placement ,encourage OOB to chair and ambulation. Continue hospitalization for safe discharge awaiting placement Time Spent With Patient Time: Total time managing care of this patient today ____ minutes. Quality Stroke Does the patient have a stroke diagnosis?: No VTE Prior VTE?: No VTE Risk Level:: Medical - moderate - high VTE Device Contraindication: Treatment Not Indicated VTE Drug Contraindication: N/A - Med Ordered
[2022-07-17] MEDS: traMADoL HCL 50 MG TABLET 25 MG PO (16:20)
[2022-07-17] MEDS: Enoxaparin Sodium 40 MG/0.4 ML SYRINGE SUBCUT (16:20)
[2022-07-17] MEDS: Theophylline Anhydrous ER 400 MG TAB.ER.24H 200 MG PO (21:18)
[2022-07-17] MEDS: Docusate Sodium 100 MG CAPSULE 200 MG PO (21:19)
[2022-07-18] VITALS (8 sets, daily range): BP systolic 90–116; BP diastolic 64–78; PULSE 80–100; RESP 18–20; TEMP 36.2–37.1; O2SAT 90–94; BMI 17.0
[2022-07-18] MEDS: Omeprazole 20 MG CAPSULE.DR PO (06:03)
[2022-07-18] MEDS: Acetaminophen 325 MG TABLET 650 MG PO ×2 (06:03→20:40)
[2022-07-18] MEDS: traMADoL HCL 50 MG TABLET 25 MG PO ×2 (06:04→20:40)
[2022-07-18] MEDS: Fluticasone/Vilanterol 200/25 BLST.W.DEV 1 PUFF INHALE (07:59)
[2022-07-18] MEDS: PARoxetine HCL 10 MG TABLET PO (09:05)
[2022-07-18] MEDS: methADONE HCl 20 MG/2 ML ORAL.CONC 30 MG PO (09:05)
[2022-07-18] MEDS: Mineral Oil/Petrolatum,White 106 GM Tube 1 APPL TOPICAL ×2 (09:06→20:49)
--- NOTE | 2022-07-18 11:16 | P.PNIM_ITS ---
Subjective Subjective Date of Service: 07/18/22 Interval History: Being followed for placement; no acute issues overnight Review of Systems Denies chest pain Denies shortness of breath Denies nausea vomiting diarrhea Denies fever chills Physical Exam Vital Signs: Vital Signs: Last Vital Signs Temp 97.8 F 07/18/22 10:59 Pulse 93 07/18/22 10:59 Resp 20 07/18/22 10:59 BP 116/75 07/18/22 10:59 Pulse Ox 94 07/18/22 10:59 O2 Del Method 07/18/22 10:59 O2 Flow Rate 4 07/18/22 10:59 FiO2 45 06/07/22 19:41 Oxygen Flow Rate 70 05/23/22 21:38 BMI result Body Mass Index 17.0 Const: Other: Awake alert no acute distress Resp: Other: Clear to auscultation bilaterally no rales rhonchi wheezes Cardio: Other: No S4; positive S1-S2; no S3 murmurs rubs or gallops GI: Other: Soft nontender nondistended normoactive bowel sounds Extrem: Other: No edema bilaterally Objective Data Active Medications Acetaminophen (Acetaminophen 325 Mg Tablet) 650 mg PO Q6H PRN PRN Reason: Pain, Mild (Pain Scale 1-3) Last Admin: 07/18/22 06:03 Dose: 650 mg Documented By: SEBASTIAN Al Hydroxide/Mg Hydroxide (Magnesium Hydrox/Alum Hydrox 30 Ml Oral.Susp) 15 ml PO Q4H PRN PRN Reason: heartburn Last Admin: 07/08/22 05:44 Dose: 15 ml Documented By: SARWAT Docusate Sodium (Docusate Sodium 100 Mg Capsule) 200 mg PO BEDTIME [facility] Last Admin: 07/17/22 21:19 Dose: 200 mg Documented By: SEBASTIAN Enoxaparin Sodium (Enoxaparin Sodium 40 Mg/0.4 Ml Syringe) 40 mg SUBCUT Q24H [facility] Last Admin: 07/17/22 16:20 Dose: 40 mg Documented By: ALISSA Fluticasone/Vilanterol (Fluticasone/Vilanterol 200/25 Blst.W.Dev) 1 puff INHALE RDAILY [facility] Last Admin: 07/18/22 07:59 Dose: 1 puff Documented By: HO.ULRICC Guaifenesin/Dextromethorphan (Guaifenesin Dm 100/10/5 Ml 5 Ml Syrup) 10 ml PO TID PRN PRN Reason: cough Hydrocortisone (Hydrocortisone 1 % Ointment 28.35 Gm Tube) 1 appl TOPICAL BID PRN; Protocol PRN Reason: itching Levalbuterol HCl (Levalbuterol Hcl 1.25 Mg/0.5 Ml Vial.Neb) 1.25 mg INHALE Q3H PRN PRN Reason: Shortness of Breath Last Admin: 07/12/22 18:43 Dose: 1.25 mg Documented By: ISIDRA Methadone HCl (Methadone Hcl 20 Mg/2 Ml Oral.Conc) 30 mg PO DAILY [facility] Last Admin: 07/18/22 09:05 Dose: 30 mg Documented By: JOSE Multi-Ingred Cream/Lotion/Oil/Oint (Mineral Oil/Petrolatum,White 106 Gm Tube) 1 appl TOPICAL BID [facility]; Protocol Last Admin: 07/18/22 09:06 Dose: 1 appl Documented By: JOSE Omeprazole (Omeprazole 20 Mg Capsule.Dr) 20 mg PO DAILY@0630 [facility] Last Admin: 07/18/22 06:03 Dose: 20 mg Documented By: SEBASTIAN Ondansetron HCl (Ondansetron Hcl 4 Mg/2 Ml Vial) 4 mg IVPUSH Q8H PRN PRN Reason: Nausea and Vomiting Last Admin: 06/18/22 19:44 Dose: 4 mg Documented By: JACKELYN Paroxetine HCl (Paroxetine Hcl 10 Mg Tablet) 10 mg PO DAILY [facility] Last Admin: 07/18/22 09:05 Dose: 10 mg Documented By: JOSE Theophylline (Theophylline Anhydrous Er 400 Mg Tab.Er.24h) 200 mg PO BEDTIME [facility] Last Admin: 07/17/22 21:18 Dose: 200 mg Documented By: SEBASTIAN Tiotropium [place] (Tiotropium [place] 18 Mcg Cap.W.Dev) 1 puff INHALE RDAILY [facility] Last Admin: 07/18/22 07:59 Dose: 1 puff Documented By: TRI Tramadol HCl (Tramadol Hcl 50 Mg Tablet) 25 mg PO Q12H PRN PRN Reason: Pain, Moderate (Pain Scale 4-6 Last Admin: 07/18/22 06:04 Dose: 25 mg Documented By: SEBASTIAN Labs 07/10/22 08:38 07/10/22 08:38 Assessment and Plan (1) Acute exacerbation of chronic obstructive airways disease: Status: Acute Plan 56yo M with COPD, chronic hypoxia on 4L O2, HCV, IDU + pulmonary nodules presenting with dyspnea/ hypoxia, initially admitted to ICU on BiPAP, stepped- down to C 05/25/22 1.Acute hypoxic respiratory failure secondary to COPD exacerbation -theophylline, Spiriva, Breo,s/p steroids -p.r.n. DuoNebs 2.Community-acquired pneumonia - Resolved 3.History of substance abuse -Continue methadone Anxiety supportive care lovenox Full code Disposition - family unable to care for him at home, CM looking for placement ,encourage OOB to chair and ambulation. Continue hospitalization for safe discharge awaiting placement Time Spent With Patient Time: Total time managing care of this patient today ____ minutes. Quality Stroke Does the patient have a stroke diagnosis?: No VTE Prior VTE?: No VTE Risk Level:: Medical - moderate - high VTE Device Contraindication: Treatment Not Indicated VTE Drug Contraindication: N/A - Med Ordered
--- NOTE | 2022-07-18 13:13 | MHC.CM.PN ---
[facility] is still waiting for documentation from [facility]. ELY spoke with JEANNE Christianson from [facility], who explains that what was sent was too light and is being re-faxed. ELY awaits word from [facility] as to when Patient can be dc'd.
--- NOTE | 2022-07-18 15:04 | MHC.CM.PN ---
Patient will be dc to [facility] for STR tomorrow at 10 AM via [facility]. Patient is aware of and was appreciative of the dc plan.
[2022-07-18 15:37] LABS: COVID-19 Test Negative (Negative); IDNOW Serial# 16C4AD1C
[2022-07-18] MEDS: Enoxaparin Sodium 40 MG/0.4 ML SYRINGE SUBCUT (17:23)
[2022-07-18] MEDS: Theophylline Anhydrous ER 400 MG TAB.ER.24H 200 MG PO (20:41)
[2022-07-19] VITALS: BP 120/78; PULSE 75; RESP 18; TEMP 37; O2SAT 96
[2022-07-19 03:35] VITALS: BP 107/68; PULSE 84; RESP 18; TEMP 36.8; O2SAT 92
[2022-07-19 05:49] VITALS: BMI 18.5
[2022-07-19] MEDS: Acetaminophen 325 MG TABLET 650 MG PO (05:56)
[2022-07-19] MEDS: Omeprazole 20 MG CAPSULE.DR PO (05:56)
[2022-07-19 07:24] VITALS: BP 114/72; PULSE 91; RESP 20; TEMP 36.4; O2SAT 94
--- NOTE | 2022-07-19 07:42 | P.DS_ITS ---
DS: Providers Provider Date of Service: 07/19/22 Date of admission: 05/23/22 23:41 Date of discharge: 07/19/22 Primary care physician: CHRISTINE Rodrigues Consults: 06/01/22 10:49 Consult to Pulmonology Routine Consulting Provider: Jose Angel Pederson Reason for consultation: recurrent hypoxia. PE ruled out. PNA. COPD 06/23/22 08:14 Consult to Pulmonology Routine Consulting Provider: Jose Angel Pederson Reason for consultation: persistent tachycardia,started on theophylline ?contributing ?dose adjust Has provider been notified: No DS: Diagnosis Discharge Diagnosis (1) Acute exacerbation of chronic obstructive airways disease: Status: Acute DS: Summary Hospital Course Hospital Course: History and physical as per admitting provider Patient is a 56-year-old male with a past medical history of? oxygen-dependent COPD( 4 L baseline),? hepatitis-C,? IV drug and pulmonary nodules who presented to the emergency room? via ambulance with complaints of shortness of breath. ? EMS reported? patient stated he was short of breath in the last couple days, today was trying to give himself neb treatment but was unable,? patient was noted to be off nasal cannula,? satting 60% on room air.? On arrival to the emergency room patient was satting 65% on 4 L,? 70% on a non- rebreather,? required initiation of BiPAP. Laboratory data? significant for WBC 20.4, D-dimer 365, chloride 86, serum bicarb 42, BUN 37, lactic acid 2.4, BMP 200, albumin 3 VBGs:? 7.32/99/45/51 IMAGING:?Chest CTA-? no evidence of? pulmonary embolism,? bilateral pneumonia greater on the left than right.?ED course: received mag sulfate 1 g, Solu-Medrol 125, Zosyn 4.5 , 1 L? normal saline,? and albuterol 10 mg.?Will be admitted to ICU for management of acute respiratory failure? likely from pneumonia Admitted to ICU on BiPAP. .. Able to weaned successfully and transferred to general medical floor. Oxygen wean down to 4-5 L (baseline 4 L at home) Acute hypoxic respiratory failure secondary to COPD exacerbation and community- acquired pneumonia status post vancomycin, Zosyn,?Augmentin and doxycycline Goal O2 saturation 88-92% baseline oxygen requirement 4 L Continue theophylline, Spiriva, Breo, prednisone 20 mg daily and updrafts Seen and evaluated by pulmonology, schedule 1 week appointment for follow-up of new medications and further management of prednisone Sinus tachycardia No other arrhythmias noted Likely secondary to multiple updraft treatments, anxiety Thrombocytopenia secondary to pneumonia History of substance abuse Continue methadone last dose 07/19/22 After treatment for above, hospital course remained unremarkable. Patient received his last dose of the methadone 07/19/2022 am. Will transfer this a.m. to short-term rehab; will likely need less than 30 days at rehab. Time Spent with Patient Time attestation: Total time managing care of this patient today ____ minutes. Discharge coordination time: Greater than 30 minutes Quality: Safe Use of Opioids Does Pt have an Active Cancer Diagnosis on the Problem List?: No Quality: Stroke Does the patient have a stroke diagnosis?: No Physical Exam Vital Signs: Vital Signs: Last Vital Signs Temp 97.6 F 07/19/22 07:24 Pulse 91 07/19/22 07:24 Resp 20 07/19/22 07:24 BP 114/72 07/19/22 07:24 Pulse Ox 94 07/19/22 07:24 O2 Del Method 07/19/22 07:24 O2 Flow Rate 4 07/19/22 07:24 FiO2 45 06/07/22 19:41 Oxygen Flow Rate 70 05/23/22 21:38 BMI result Body Mass Index 18.5 Const: Other: Awake alert no acute distress Resp: Other: Clear to auscultation bilaterally no rales rhonchi wheezes Cardio: Other: No S4; positive S1-S2; no S3 murmurs rubs or gallops GI: Other: Soft nontender nondistended normoactive bowel sounds Extrem: Other: No edema bilaterally DS: Data Data Completed and Pending Completed studies during hospitalization [Text1]: Procedures Reposition Right Upper Femur with Internal Fixation Device, Percutaneous Approach (10/22/21) Transfusion of Nonautologous Platelets into Peripheral Vein, Percutaneous Approach (10/22/21) Labs on day of discharge: Laboratory Results - last 24 hr 07/18/22 15:03 COVID-19 (TATIANNA) Negative COVID-19 Clin Com See Note Discharge Plan Discharge Anticipated Discharge Date/Time: 07/19/22 07:41 Patient Disposition: Xfer SNF Discharge Diagnosis: Acute hypoxic respiratory failure COPD exacerbation Community-acquired pneumonia Sinus tachycardia Thrombocytopenia Referrals: [facility] [Outside] - 1 Week Jose Angel Pederson MD [Physician] - 1 Week Althea Main FNP [Primary Care Provider] - 07/21/22 10:45 am (follow up appointment scheduled. call office if you need to reschedule) Discharge Medications: New theophylline 400 mg Tablet Extended Release 24 Hr 200 mg PO BID Qty: 30 0RF fluticasone furoate-vilanterol [Breo Ellipta] 200-25 mcg/dose Blister With Device 1 ea inhalation RDAILY Qty: 60 0RF prednisone 20 mg tablet 20 mg PO DAILY Qty: 30 0RF Continued Anoro Ellipta 62.5-25 mcg/actuation blister with device 1 puff inhalation DAILY albuterol sulfate 2.5 mg /3 mL (0.083 %) solution for nebulization 1 amp inhalation Q4H PRN (Reason: wheezing) albuterol sulfate [ProAir HFA] 90 mcg/actuation Hfa Aerosol Inhaler 2 puff INHALATION Q6H PRN (Reason: Respiratory Distress) methadone 10 mg/mL Concentrate 40 mg PO DAILY ferrous sulfate [iron] 325 mg (65 mg iron) tablet 325 mg PO BID Qty: 60 0RF paroxetine HCl 10 mg tablet 1 tab PO DAILY pantoprazole 40 mg tablet,delayed release (DR/EC) 40 mg PO DAILY Discharge Orders: Discharge Order (Routine); Ordered 07/19/22 Ordered By: Arie Putnam Diet: Advance to usual diet Activity on Discharge: As tolerated Stand Alone Forms: Patient Portal Discharge page Other Ambulatory Orders: Theophylline (Routine) Timeframe: 1 Week Facility: [facility] - Location: Laboratory Ordered By: Isabella Mathias Care Plan Goals: Complete resolution of symptoms Health Concerns: Acute hypoxic respiratory failure COPD exacerbation Community-acquired pneumonia Sinus tachycardia Thrombocytopenia Plan of Treatment: Follow-up with primary care provider once discharged from rehab Take all medications as prescribed Please schedule an appointment with the washer assembler within 1 week, Dr. Pederson Check theophylline level in 1 week Last methadone dose 06/14/2022 Assessment: See discharge summary
[2022-07-19] MEDS: Mineral Oil/Petrolatum,White 106 GM Tube 1 APPL TOPICAL (08:07)
[2022-07-19] MEDS: methADONE HCl 20 MG/2 ML ORAL.CONC 30 MG PO (08:07)
[2022-07-19] MEDS: PARoxetine HCL 10 MG TABLET PO (08:07)
[2022-07-19] MEDS: Fluticasone/Vilanterol 200/25 BLST.W.DEV 1 PUFF INHALE (08:32)
[2022-07-19 08:33] VITALS: PULSE 87; RESP 18; O2SAT 93
[2022-07-19 11:24] VITALS: BP 116/79; PULSE 90; RESP 20; TEMP 36.4; O2SAT 90
== END 2022-07-19 13:05 | disposition skilled nursing facility (03) | DRG 139 ==
LOC: HO.ED 23:38 → HO.EDOVER 23:48 → HO.ICU 23:50 → HO.IMC 05-25 18:28
PROVIDERS: Family Medicine; Hospitalist; Internal Medicine; Internal Medicine Pulmonary Disease; Nurse Practitioner Acute Care; Physician Assistant; Physician Assistant Medical; Admitting Provider Registered Nurse Community Health; Emergency Provider Emergency Medicine; PCP Registered Nurse; Visit Provider Hospitalist
DX: J18.9 Pneumonia, unspecified organism (principal); J96.21 Acute and chronic respiratory failure with hypoxia; E44.1 Mild protein-calorie malnutrition; E87.3 Alkalosis; J44.0 Chronic obstructive pulmonary disease with (acute) lower respiratory infection; D69.59 Other secondary thrombocytopenia; Z99.81 Dependence on supplemental oxygen; J44.1 Chronic obstructive pulmonary disease with (acute) exacerbation; F11.20 Opioid dependence, uncomplicated; B19.20 Unspecified viral hepatitis C without hepatic coma; Z68.1 Body mass index [BMI] 19.9 or less, adult; F41.9 Anxiety disorder, unspecified; M25.552 Pain in left hip; R21 Rash and other nonspecific skin eruption; R00.0 Tachycardia, unspecified; T48.6X5A Adverse effect of antiasthmatics, initial encounter; J96.22 Acute and chronic respiratory failure with hypercapnia; N39.0 Urinary tract infection, site not specified; Z20.822 Contact with and (suspected) exposure to COVID-19; Z87.891 Personal history of nicotine dependence; Z79.51 Long term (current) use of inhaled steroids; Z79.899 Other long term (current) drug therapy
CPT/HCPCS: 36415; 36600; 71045; 71275; 73502; 80048; 80053; 80076; 80198; 80202; 80307; 81001; 82040; 82077; 82565; 82803; 82947; 83605; 83735; 83880; 84100; 84145; 84484; 85007; 85025; 85027; 85379; 87040; 87086; 87147; 87205; 87502; 87635; 93005; 93306; 94640; 94660; 94664; 96365; 96366; 96375; 97110; 97116; 97162; 97530; 99285; J1650; J1885; J1940; J2270; J2405; J2543; J2920; J2930; J3370; J3475; P9047; Q9957; Q9967

== ENCOUNTER → 2022-08-16 10:03 | Outpatient (BNVA) | payer MEDICAID, SELFPAY | PROVIDERS: PCP Registered Nurse; Visit Provider Internal Medicine Pulmonary Disease | DX: J44.9 Chronic obstructive pulmonary disease, unspecified (principal); Z99.81 Dependence on supplemental oxygen | CPT/HCPCS: 99212 ==

== ENCOUNTER → 2022-10-02 13:20 | Outpatient (BNVA) | payer MEDICAID, SELFPAY | PROVIDERS: PCP Registered Nurse; Visit Provider Internal Medicine Pulmonary Disease | DX: J44.9 Chronic obstructive pulmonary disease, unspecified (principal) | CPT/HCPCS: 94618; 99211 ==

== ENCOUNTER → 2022-11-02 11:12 | Outpatient (BNVA) | payer MEDICAID, SELFPAY | PROVIDERS: PCP Registered Nurse; Visit Provider Internal Medicine Pulmonary Disease | DX: J44.9 Chronic obstructive pulmonary disease, unspecified (principal); Z99.81 Dependence on supplemental oxygen | CPT/HCPCS: 99212 ==

== ENCOUNTER 2023-01-10 10:05 | Outpatient (AMB) | payer MEDICAID, SELFPAY ==
[2023-01-10 10:14] VITALS: BP 127/82; PULSE 117; O2SAT 93; BMI 19.5
--- NOTE | 2023-01-10 10:14 | A.OFFVIS_ITS ---
Intake Vital Signs 01/10/23 10:14 Height 5 ft 7 in Weight 124 lb 8.979 oz BMI 19.5 BP 127/82 Blood Pressure Location Rt brachial Position Sitting Pulse 117 H Pulse Source Pulse Oximeter Pulse Oximetry (%) 93 Oxygen Delivery Method Room Air Intake Visit Reasons: COPD Allergies No Known Allergies Allergy (Verified 01/10/23 10:19) HPI COPD HPI Details 57-year-old gentleman,? 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 2-4 Loxygen dependent COPD and pulmonary nodules. He continues on his current regimen of Spiriva, Advair, theophylline, albuterol MDI/duo nebs with good control of his symptoms. He denies any recent exacerbations. Patient does complain of significant chronic back pain. [facility] Medical History COPD (chronic obstructive pulmonary disease) Erosive esophagitis HCV (hepatitis C virus) Latent tuberculosis Severe chronic obstructive pulmonary disease Tachycardia Family History Mother HTN (hypertension) Brother COPD (chronic obstructive pulmonary disease) Social History Household Members: Family Housing: House Do you presently have visiting nurse or other home services: No Alcohol intake: unknown Patient Tobacco Use Status: Former Tobacco user Tobacco use type: Cigarette Cigarettes Per Day: 10 Years Smoked: 30 Substance Use Type: Heroin Advance Directives Date on File: 11/16/21 service: No Current occupational status: unemployed Review of Systems Const Denies daytime sleepiness, Denies excessive sweating, Denies fatigue, Denies fever(s), Denies lethargy, Denies malaise, Denies night sweats, Denies snoring and Denies weight loss Eyes Denies blurry vision and Denies itchy eyes ENT Denies nasal congestion, Denies post nasal drip, Denies sinus pain, Denies sinus pressure and Denies other ( Thrush) Card Denies chest pain, Denies pedal edema, Denies dyspnea, Denies orthopnea and Abdullahi es paroxysmal nocturnal dyspnea Resp Denies cough, Denies hemoptysis, Denies excessive phlegm production, Denies dyspnea, Denies snoring and Denies wheezing GI Denies abdominal pain and Denies heartburn Musc Reports back pain, Denies myalgias, Denies arthralgias and Denies joint swelling Skin/Breast Denies rash Neuro Denies memory loss and Denies seizure-like activity Psych Denies abnormal sleep pattern, Denies anxiety and Denies memory loss Endo Denies excessive sweating, Denies fatigue and Denies heat intolerance Abdirahman/Lymph Denies easy bruising Aller/Immun Denies itchy eyes, Denies seasonal rhinorrhea and Denies wheezing Physical Exam Vital Signs: Last Vital Signs Pulse 117 H 01/10/23 10:14 BP 127/82 01/10/23 10:14 Pulse Ox 93 01/10/23 10:14 Oxygen Delivery Method Room Air 01/10/23 10:14 BMI result Body Mass Index 19.5 Const General: no acute distress and alert Nutritional Appearance: not obese Orientation/consciousness: Other orientation findings ( oriented) HEENT Head: Yes atraumatic Eyes General: appearance normal, both eyes and all related structures Sclerae: sclerae normal EOM: EOMs intact bilaterally Neck Neck: Yes supple Lymphatic: no lymphadenopathy noted Resp Effort & Inspection: normal respiratory effort and no use of accessory muscles Auscultation: clear to auscultation bilaterally Cardio Rate: regular rate Rhythm: regular rhythm Heart sounds: no gallops, no murmurs and no rubs Skin General skin exam: other ( warm) Extrem General: No clubbing, No cyanosis and No edema Assessment & Plan Assessment & Plan (1) Severe chronic obstructive pulmonary disease: Code(s): J44.9 - Chronic obstructive pulmonary disease, unspecified Plan: Now well controlled on current regimen of Spiriva, Advair, duo nebs, theophylline, and albuterol MDI. Continue current regimen. (2) Pulmonary nodules: Code(s): R91.8 - Other nonspecific abnormal finding of lung field Plan: Underlying pulmonary nodules, will repeat CT chest in May of 2023. (3) Supplemental oxygen dependent: Code(s): Z99.81 - Dependence on supplemental oxygen Plan: Continue supplemental oxygen to maintain O2 saturation of 88-92%. (4) Chronic back pain: Code(s): M54.9 - Dorsalgia, unspecified; G89.29 - Other chronic pain Plan: Chronic back pain, will refer to pain management. Orders: Orders CT chest wo IV con 06/02/23 R91.8 - Other nonspecific abnormal finding of lung field Referrals Pain Management Referral G89.29 - Other chronic pain, M54.9 - Dorsalgia, unspecified Coding Level of Care Code Est Pt Level 4 (68649) Diagnoses Severe chronic obstructive pulmonary disease J44.9 Pulmonary nodules R91.8 Supplemental oxygen dependent Z99.81 Chronic back pain M54.9; G89.29
== END 2023-01-10 10:29 | disposition home or self-care (01) ==
PROVIDERS: PCP Registered Nurse; Visit Provider Internal Medicine Pulmonary Disease
DX: J44.9 Chronic obstructive pulmonary disease, unspecified (principal); R91.8 Other nonspecific abnormal finding of lung field; Z99.81 Dependence on supplemental oxygen; M54.9 Dorsalgia, unspecified; G89.29 Other chronic pain
CPT/HCPCS: 99214

== ENCOUNTER → 2023-01-10 10:05 | Outpatient (BNVA) | payer MEDICAID, SELFPAY | PROVIDERS: Visit Provider Internal Medicine Pulmonary Disease | DX: J44.9 Chronic obstructive pulmonary disease, unspecified (principal); R91.8 Other nonspecific abnormal finding of lung field; M54.9 Dorsalgia, unspecified; G89.29 Other chronic pain; B19.20 Unspecified viral hepatitis C without hepatic coma; F17.210 Nicotine dependence, cigarettes, uncomplicated; Z22.7 Latent tuberculosis; Z99.81 Dependence on supplemental oxygen | CPT/HCPCS: 99212 ==

== ENCOUNTER 2023-03-05 10:55 | Outpatient (AMB) | payer MEDICAID, SELFPAY ==
[2023-03-05 11:00] VITALS: BP 110/76; PULSE 133; RESP 4; O2SAT 82; BMI 19.4
--- NOTE | 2023-03-05 11:00 | MHC.OFFVIS ---
Intake Vital Signs 03/05/23 11:00 Height 5 ft 7 in Weight 124 lb BMI 19.4 BP 110/76 Blood Pressure Location Rt brachial Position Sitting Respiration 4 L Pulse 133 H Pulse Source Pulse Oximeter Pulse Oximetry (%) 82 L Oxygen Delivery Method Nasal Cannula Intake Visit Reasons: Dorsalgia, Unspecified Allergies No Known Allergies Allergy (Verified 03/05/23 11:03) Medication List - Last Reconciled 03/05/23 by Mellisa Doherty LPN albuterol sulfate 1 amp inhalation Q4H PRN albuterol sulfate 90 mcg/actuation (ProAir HFA) 2 puffs inhalation Q6H PRN ferrous sulfate (iron) 325 mg PO BID ipratropium-albuterol 0.5 mg-3 mg(2.5 mg base)/3 mL 3 mL inhalation Q4-6H PRN 30 days methadone 40 mg PO DAILY pantoprazole 40 mg PO DAILY paroxetine HCl 1 tab PO DAILY theophylline ER 200 mg (1/2 x 400 mg) PO BID tiotropium bromide (Spiriva with HandiHaler) 1 cap inhalation DAILY HPI Dorsalgia, Unspecified HPI Details 57-year-old male who presents today for a new patient evaluation of Dorsalgia. The patient reports low back pain. He has a history of fractured lumbar spine. The pain is localized in the low back mostly axial in nature across his lower back without radiation to lower extremities. He has been in and out of the hospital due to pain. He is currently in long-term rehab in [place] for about a year now. He is currently taking methadone 55 mg once daily. He is unable to lie down in a supine position. He is interested in trigger point injections today in the office. He has a history of thrombocytopenia. His recent history is notable for UTI which is being treated with antibiotics. [facility] Medical History COPD (chronic obstructive pulmonary disease) Erosive esophagitis HCV (hepatitis C virus) Latent tuberculosis Severe chronic obstructive pulmonary disease Tachycardia Family History Mother HTN (hypertension) Brother COPD (chronic obstructive pulmonary disease) Social History Household Members: Family Housing: House Do you presently have visiting nurse or other home services: No Alcohol intake: unknown Patient Tobacco Use Status: Former Tobacco user Tobacco use type: Cigarette Cigarettes Per Day: 10 Years Smoked: 30 Substance Use Type: Heroin Advance Directives Date on File: 11/16/21 service: No Current occupational status: unemployed Review of Systems Const All systems reviewed & are unremarkable except as noted in HPI and below Physical Exam Vital Signs: Last Vital Signs Pulse 133 H 03/05/23 11:00 Resp 4 L 03/05/23 11:00 BP 110/76 03/05/23 11:00 Pulse Ox 82 L 03/05/23 11:00 Oxygen Delivery Method Nasal Cannula 03/05/23 11:00 BMI result Body Mass Index 19.4 General: Appears afebrile. Alert and oriented. Mood and affect appropriate. Follows and participates in conversation appropriately. Respiratory effort is unlabored. Able to transition from sit to stand unassisted. Ambulates with bilaterally normal heel strike and toe off. Fairly individual sitting comfortably in wheelchair. Oxygen dependent. Tenderness to palpation diffusely throughout the lumbar spine. Office Procedures Injection Trigger Point Multi Pre-procedure diagnosis: Myofascial pain Post-procedure diagnosis: Myofascial pain Site and number of trigger points: Lumbar paraspinal muscles including Lat dorsi, multifidus, iliocostalis Solution: Total volume administered 10 ml (5 ml lidocaine 1% + 5 ml bupivacaine 0.25%). The procedure, its benefits, and its risks were explained to the patient and all questions were answered. A pulse oximeter monitor was attached and the patient was monitored throughout the procedure. Prior to the start of the procedure, a ?time out? was performed to confirm correct patient, procedure, and laterality. Trigger points were identified by manual palpation and marked. The skin was cleaned with Chloraprep. A 1.5 inch 25 G needle was used. Each of the trigger points were approximated and elevated in the direction away from the body. Dry needling then took place for five seconds. Approximately 0.5 ml to 1 ml of injectate was delivered to the trigger point followed by dry needling for five seconds. This process was repeated at each trigger point site. The patient tolerated the procedure well. Post-procedure, breath sounds were equal at both sides of the chest. The patient tolerated the procedure well, without complication. The patient denied any numbness, paresthesias, or weakness. Post-procedure vitals were recorded as part of the nursing discharge note in electronic medical record. Following a period of observation, the patient was discharged in stable condition with written discharge instructions. Trigger Point Multiple: - Trigger point injection =/>3 Results Reviewed Results Reviewed: No imaging is available for review. Assessment & Plan Assessment & Plan (1) Chronic back pain: Code(s): M54.9 - Dorsalgia, unspecified; G89.29 - Other chronic pain Qualifiers: Back pain laterality: bilateral Sciatica presence: unspecified whether sciatica present Plan 57-year-old male with extensive comorbidities in a tenuous respiratory status with multiple pain generators leading to history of chronic low back pain. I do not think he is a candidate for aggressive interventional therapy due to his various comorbidities. We undertook trigger point injections in the office today for myofascial component of his pain in the hope of providing some temporary relief. We may repeat these if he finds them helpful every 1-2 months. He will follow-up as needed. Scribed for Dr. Dick by Claus Wolfe, medical record administrator, on 03/05/2023. I, Dr. Dick, have personally reviewed and agree with the information entered by the scribe. Coding Level of Care Code New Pt Level 4 (53660) Diagnoses Chronic back pain M54.9; G89.29 Back pain laterality: bilateral Sciatica presence: unspecified whether sciatica present CPT Codes Details - Trigger Point Multiple: - Trigger point injection =/>3 ([id number])
== END 2023-03-05 11:36 | disposition home or self-care (01) ==
PROVIDERS: PCP Registered Nurse; Visit Provider Internal Medicine
DX: M54.9 Dorsalgia, unspecified (principal); G89.29 Other chronic pain; M79.18 Myalgia, other site
CPT/HCPCS: 20553; 99204

== ENCOUNTER → 2023-03-05 10:55 | Outpatient (BNVA) | payer MEDICAID, SELFPAY | PROVIDERS: PCP Registered Nurse; Visit Provider Internal Medicine | DX: M79.18 Myalgia, other site (principal); G89.29 Other chronic pain; M54.50 Low back pain, unspecified | CPT/HCPCS: 20553; 99202 ==

== ENCOUNTER 2023-06-12 12:53 | Outpatient (AMB) | payer MEDICAID, SELFPAY ==
--- NOTE | 2023-06-12 13:06 | MHC.OFFVIS ---
Intake Vital Signs 06/12/23 13:07 Height 5 ft 6 in Weight 130 lb BMI 21.0 BP 122/82 Blood Pressure Location Rt brachial Position Sitting Pulse 128 H Pulse Source Doppler Pulse Oximetry (%) 92 Oxygen Delivery Method Nasal Cannula Oxygen Flow Rate 3 Intake Visit Reasons: COPD Allergies No Known Allergies Allergy (Verified 06/12/23 13:15) HPI COPD HPI Details 57-year-old gentleman,? recent greater than 40 pack-year smoker with prior history of latent TB treated with 9 months of INH, followed for severe? 2-4 L oxygen dependent COPD and pulmonary nodules. He continues on his current regimen of Spiriva, Advair, theophylline, albuterol MDI/duo nebs with good baseline control of his symptoms. He denies any recent exacerbations. He, unfortunately, recently had a fall after which he has fractured several ribs and now he has significant pain with coughing. [facility] Medical History COPD (chronic obstructive pulmonary disease) Erosive esophagitis HCV (hepatitis C virus) Latent tuberculosis Severe chronic obstructive pulmonary disease Tachycardia Family History Mother HTN (hypertension) Brother COPD (chronic obstructive pulmonary disease) Social History Household Members: Family Housing: House Do you presently have visiting nurse or other home services: No Alcohol intake: unknown Patient Tobacco Use Status: Former Tobacco user Tobacco use type: Cigarette Cigarettes Per Day: 10 Years Smoked: 30 Substance Use Type: Heroin Advance Directives Date on File: 11/16/21 service: No Current occupational status: unemployed Review of Systems Const Denies daytime sleepiness, Denies excessive sweating, Denies fatigue, Denies fever(s), Denies lethargy, Denies malaise, Denies night sweats, Denies snoring and Denies weight loss Eyes Denies blurry vision and Denies itchy eyes ENT Denies nasal congestion, Denies post nasal drip, Denies sinus pain, Denies sinus pressure and Denies other ( Thrush) Card Denies chest pain, Denies pedal edema, Denies dyspnea, Denies orthopnea and Denies paroxysmal nocturnal dyspnea Resp Denies cough, Denies hemoptysis, Denies excessive phlegm production, Denies dyspnea, Denies snoring and Denies wheezing GI Denies abdominal pain and Denies heartburn Musc Denies myalgias, Denies arthralgias and Denies joint swelling Skin/Breast Denies rash Neuro Denies memory loss and Denies seizure-like activity Psych Denies abnormal sleep pattern, Denies anxiety and Denies memory loss Endo Denies excessive sweating, Denies fatigue and Denies heat intolerance Abdirahman/Lymph Denies easy bruising Aller/Immun Denies itchy eyes, Denies seasonal rhinorrhea and Denies wheezing Physical Exam Vital Signs: Last Vital Signs Pulse 128 H 06/12/23 13:07 BP 122/82 06/12/23 13:07 Pulse Ox 92 06/12/23 13:07 Oxygen Delivery Method Nasal Cannula 06/12/23 13:07 Oxygen Flow Rate 3 06/12/23 13:07 BMI result Body Mass Index 21.0 Const General: no acute distress and alert Nutritional Appearance: not obese Orientation/consciousness: Other orientation findings ( oriented) HEENT Head: Yes atraumatic Eyes General: appearance normal, both eyes and all related structures Sclerae: sclerae normal EOM: EOMs intact bilaterally Neck Neck: Yes supple Lymphatic: no lymphadenopathy noted Resp Effort & Inspection: normal respiratory effort and no use of accessory muscles Auscultation: clear to auscultation bilaterally Cardio Rate: regular rate Rhythm: regular rhythm Heart sounds: no gallops, no murmurs and no rubs Skin General skin exam: other ( warm) Extrem General: No clubbing, No cyanosis and No edema Assessment & Plan Assessment & Plan (1) Severe chronic obstructive pulmonary disease: Code(s): J44.9 - Chronic obstructive pulmonary disease, unspecified Plan: Baseline controlled on regimen of Advair, Spiriva, theophylline, duo nebs, and albuterol MDI. Continue current regimen. Will add cough syrup for symptomatic relief of rib pain with coughing. (2) Supplemental oxygen dependent: Code(s): Z99.81 - Dependence on supplemental oxygen Plan: Continue supplemental oxygen to maintain O2 saturation of 88-92%. (3) Pulmonary nodules: Code(s): R91.8 - Other nonspecific abnormal finding of lung field Plan: Follow-up CT chest is pending. Medications: New codeine-guaifenesin 10-100 mg/5 mL 10 mL PO Q4-6H 15 days PRN 473 mL 0RF flu symptoms Coding Level of Care Code Est Pt Level 4 (84377) Diagnoses Severe chronic obstructive pulmonary disease J44.9 Supplemental oxygen dependent Z99.81 Pulmonary nodules R91.8
[2023-06-12 13:07] VITALS: BP 122/82; PULSE 128; O2SAT 92; BMI 21.0
== END 2023-06-12 13:30 | disposition home or self-care (01) ==
PROVIDERS: PCP Registered Nurse; Visit Provider Internal Medicine Pulmonary Disease
DX: J44.9 Chronic obstructive pulmonary disease, unspecified (principal); Z99.81 Dependence on supplemental oxygen; R91.8 Other nonspecific abnormal finding of lung field
CPT/HCPCS: 99214

== ENCOUNTER → 2023-06-12 12:53 | Outpatient (BNVA) | payer MEDICAID, SELFPAY | PROVIDERS: PCP Registered Nurse; Visit Provider Internal Medicine Pulmonary Disease | DX: J44.9 Chronic obstructive pulmonary disease, unspecified (principal); R91.8 Other nonspecific abnormal finding of lung field; Z99.81 Dependence on supplemental oxygen | CPT/HCPCS: 99212 ==

== ENCOUNTER 2023-06-13 12:54 | Outpatient (REF) | payer MEDICAID, SELFPAY | END 2023-06-13 12:55 | disposition home or self-care (01) | LOC: HO.CT 12:54 | PROVIDERS: PCP Registered Nurse; Visit Provider Internal Medicine Pulmonary Disease | DX: R91.8 Other nonspecific abnormal finding of lung field (principal) | CPT/HCPCS: 71250 ==